=== PATIENT | female | born 1945 | race Caucasian/White ===

== ENCOUNTER → 2016-07-01 | Outpatient (CLI) | payer MEDICARE, MEDICAID ==
[~2016-07-01] MED LIST: ASPI-231 PO; FUR40T PO; HYDR-2595; LEVO75TA6 PO; OXYB15TA12 PO; POTA10TA51 PO; RIVA10TA PO; ROPI1TAB22 PO; SOTA80TA
[2016-07-01 16:27] LABS: Basophils # (auto) 0.1 uL; Basophils % (auto) 0.5 % (0.0-2.0); DEFINITIVE VIEW TRANSMISSION; Eosinophils # (auto) 0.5 uL; Eosinophils % (auto) 4.2 % (0.0-7.0); Hematocrit 32.9 % (36.0-46.0); Hemoglobin 10.2 g/dL (12.2-16.2); Lymphocytes # (auto) 2.2 uL; Lymphocytes % (auto) 17.5 % (10.0-50.0); Mean Corpuscular Hemoglobin 25.7 pg (28.0-32.0); Mean Corpuscular Volume 82.8 fL (80.0-100.0); Mean Platelet Volume 7.5 fL (7.4-10.4); Monocytes # (auto) 0.8 uL; Neutrophils # (auto) 9.1 uL; Neutrophils % (auto) 71.8 % (37.0-80.0); Platelet Count (auto) 407 10^3/uL (140-450); Red Cell Distribution Width 19.4 % (11.6-16.0); White Blood Cell 12.7 10^3/uL (4.4-10.8)
[2016-07-01 16:46] LABS: Albumin 2.3 g/dL (3.4-5.0); BUN/Creatinine Ratio 11.2; Calcium 9.1 mg/dL (8.5-10.1); Potassium 4.7 mmol/L (3.5-5.1)
[2016-07-01 16:49] LABS: Bilirubin, Total 0.3 mg/dL (0.2-1.0)
[2016-07-01 17:27] LABS: Anisocytosis Moderate; Platelet Estimate Adequate
[2016-07-01 17:28] LABS: Ovalocytes FEW
== END | disposition home or self-care (01) ==
LOC: LAB 11:59
PROVIDERS: ATTEND Internal Medicine Cardiovascular Disease
DX: N39.0 Urinary tract infection, site not specified (principal); D64.9 Anemia, unspecified; I10 Essential (primary) hypertension
CPT/HCPCS: 36415; 80053; 85025

== ENCOUNTER → 2016-08-12 | Outpatient (CLI) | payer MEDICARE, MEDICAID ==
[2016-08-12 16:36] LABS: Basophils # (auto) 0 uL; Basophils % (auto) 0.5 % (0.0-2.0); DEFINITIVE VIEW TRANSMISSION; Eosinophils # (auto) 1.3 uL; Eosinophils % (auto) 12.2 % (0.0-7.0); Hematocrit 29.3 % (36.0-46.0); Hemoglobin 9.7 g/dL (12.2-16.2); Lymphocytes # (auto) 1.8 uL; Lymphocytes % (auto) 17.5 % (10.0-50.0); Mean Corpuscular Hemoglobin 27.5 pg (28.0-32.0); Mean Corpuscular Hgb Conc. 33.1 g/dL (32.0-36.0); Mean Platelet Volume 8.5 fL (7.4-10.4); Monocytes # (auto) 0.7 uL; Monocytes % (auto) 6.7 % (0.0-12.0); Neutrophils # (auto) 6.6 uL; Neutrophils % (auto) 63.1 % (37.0-80.0); Platelet Count (auto) 398 10^3/uL (140-450); Red Cell Distribution Width 18.3 % (11.6-16.0); White Blood Cell 10.4 10^3/uL (4.4-10.8)
[2016-08-12 16:55] LABS: BUN/Creatinine Ratio 19.7; Calcium 9.3 mg/dL (8.5-10.1); Potassium 4.8 mmol/L (3.5-5.1)
== END | disposition home or self-care (01) ==
LOC: CHF HDHVI 14:48
PROVIDERS: ATTEND Internal Medicine Cardiovascular Disease
DX: I10 Essential (primary) hypertension (principal); D64.9 Anemia, unspecified
CPT/HCPCS: 36415; 80048; 85025

== ENCOUNTER → 2016-09-18 | Outpatient (CLI) | payer MEDICARE, MEDICAID | END | disposition home or self-care (01) | LOC: LAB 13:09 | PROVIDERS: ATTEND Internal Medicine Cardiovascular Disease | DX: N39.0 Urinary tract infection, site not specified (principal) | CPT/HCPCS: 87086 ==

== ENCOUNTER → 2017-01-04 | Outpatient (CLI) | payer MEDICARE, MEDICAID ==
[2017-01-04 13:40] VITALS: BP 153/74
[2017-01-04 14:40] VITALS: BP 174/85
[2017-01-04 16:46] LABS: Basophils # (auto) 0 uL; Basophils % (auto) 0.2 % (0.0-2.0); CONDITION Y; Eosinophils # (auto) 0.1 uL; Eosinophils % (auto) 0.6 % (0.0-7.0); Hematocrit 31.6 % (36.0-46.0); Hemoglobin 10.4 g/dL (12.2-16.2); Lymphocytes # (auto) 2.1 uL; Lymphocytes % (auto) 15.3 % (10.0-50.0); Mean Corpuscular Hemoglobin 28.3 pg (28.0-32.0); Mean Corpuscular Hgb Conc. 32.9 g/dL (32.0-36.0); Mean Corpuscular Volume 85.8 fL (80.0-100.0); Mean Platelet Volume 8.6 fL (7.4-10.4); Monocytes # (auto) 0.9 uL; Monocytes % (auto) 6.3 % (0.0-12.0); Neutrophils # (auto) 10.7 uL; Neutrophils % (auto) 77.6 % (37.0-80.0); Platelet Count (auto) 495 10^3/uL (140-450); Red Cell Distribution Width 14.9 % (11.6-16.0); White Blood Cell 13.8 10^3/uL (4.4-10.8)
[2017-01-04 17:59] LABS: Chloride 105 mmol/L (98-107); Potassium 4.9 mmol/L (3.5-5.1); Sodium 138 mmol/L (136-145)
[2017-01-04 19:05] LABS: Albumin 3.4 g/dL (3.4-5.0); Alkaline Phosphatase 91 U/L (45-117); Anion Gap 10 (5-15); Aspartate Aminotransferase 6 U/L (15-37); Bilirubin, Direct < 0.1 mg/dL (0-0.2); Bilirubin, Total 0.3 mg/dL (0.2-1.0); Calcium 9.5 mg/dL (8.5-10.1); Carbon Dioxide 23 mmol/L (21-32); Cholesterol 99 mg/dL (< 200); GFR African American 22 mL/min; GFR Non-African American 18 mL/min; Glucose 95 mg/dL (74-106); HDL Cholesterol 56 mg/dL (40-59); LDL Cholesterol 100 mg/dL (< 100); Total Protein 7.5 g/dL (6.4-8.2); Triglycerides 94 mg/dL (< 150)
[2017-01-05 14:47] LABS: BUN/Creatinine Ratio 36.1; Blood Urea Nitrogen 99 mg/dL (7-18)
[2017-01-05 16:58] LABS: Urine Bilirubin Negative (Negative); Urine Blood Negative /uL (Negative); Urine Color Yellow (Yellow); Urine Glucose Normal (Normal); Urine Ketone Negative (Negative); Urine Nitrite Negative (Negative); Urine Urobilinogen Normal (Negative)
== END | disposition home or self-care (01) ==
LOC: Rad HDHVI 12:50
PROVIDERS: ATTEND Internal Medicine Cardiovascular Disease
DX: I35.0 Nonrheumatic aortic (valve) stenosis (principal); I11.0 Hypertensive heart disease with heart failure; I50.23 Acute on chronic systolic (congestive) heart failure; E78.00 Pure hypercholesterolemia, unspecified; K74.1 Hepatic sclerosis; E11.9 Type 2 diabetes mellitus without complications; E03.9 Hypothyroidism, unspecified; D64.9 Anemia, unspecified; E55.9 Vitamin D deficiency, unspecified
CPT/HCPCS: 36415; 80048; 80061; 80076; 82306; 83036; 84443; 85025; 93306; G0463; J1642; 81003; 87086

== ENCOUNTER → 2017-01-11 | Outpatient (CLI) | payer MEDICARE, MEDICAID ==
[~2017-01-11] VITALS: Ht 170.2 cm; Wt 89.3 kg
[~2017-01-11] MED LIST changes: +ADENOSINE 75 MG in GIVE UN-DILUTED 0 ML IV ONE; +APRE1TAB2 PO; +BISA-13 PO; +FAMO-12 PO; +LEVO250T45 PO; +LOR05T PO; +MELO-86 PO; +NAS17NSL; +ONDA4TAB5 PO; +SACC250C PO
== END | disposition home or self-care (01) ==
LOC: XYW 08:41
PROVIDERS: ATTEND Internal Medicine Cardiovascular Disease
DX: R94.39 Abnormal result of other cardiovascular function study (principal)
CPT/HCPCS: J0153

== ENCOUNTER → 2017-02-24 | Outpatient (CLI) | payer MEDICARE, MEDICAID ==
[~2017-02-24] MED LIST changes: -ADENOSINE 75 MG in GIVE UN-DILUTED 0 ML IV ONE; -RIVA10TA PO
[2017-02-24 12:18] LABS: Urine Bilirubin Negative (Negative); Urine Blood Negative /uL (Negative); Urine Color Colorless (Yellow); Urine Glucose Normal (Normal); Urine Ketone Negative (Negative); Urine Nitrite Negative (Negative); Urine Urobilinogen Normal (Negative); Urine pH 6.5 (5.0-8.0)
[2017-02-24 12:21] LABS: Basophils # (auto) 0.1 uL; Basophils % (auto) 0.6 % (0.0-2.0); Eosinophils # (auto) 0.6 uL; Eosinophils % (auto) 6.6 % (0.0-7.0); Hematocrit 30.1 % (36.0-46.0); Lymphocytes # (auto) 2.1 uL; Mean Corpuscular Hemoglobin 28.3 pg (28.0-32.0); Mean Corpuscular Hgb Conc. 33.1 g/dL (32.0-36.0); Mean Corpuscular Volume 85.4 fL (80.0-100.0); Mean Platelet Volume 7.8 fL (6.9-10.8); Monocytes # (auto) 0.8 uL; Monocytes % (auto) 8.3 % (0.0-12.0); Neutrophils # (auto) 6.1 uL; Neutrophils % (auto) 62.5 % (37.0-80.0); Platelet Count (auto) 389 10^3/uL (140-450); Red Cell Distribution Width 16.2 % (11.8-14.3); White Blood Cell 9.7 10^3/uL (4.4-10.8)
== END | disposition home or self-care (01) ==
LOC: LAB 10:42
PROVIDERS: ATTEND Internal Medicine Cardiovascular Disease
DX: D64.9 Anemia, unspecified (principal); N39.0 Urinary tract infection, site not specified; N18.4 Chronic kidney disease, stage 4 (severe)
CPT/HCPCS: 36415; 81003; 85025; 87086

== ENCOUNTER → 2017-04-07 | Outpatient (CLI) | payer MEDICARE, MEDICAID ==
[~2017-04-07] VITALS: Ht 170.2 cm; Wt 115.7 kg
[~2017-04-07] MED LIST changes: +ADENOSINE 90 MG/30 ML INJ IV ONE; +ADENOSINE 97 MG in GIVE UN-DILUTED 0 ML IV ONE; -LOR05T PO; +LORA-654 PO; -MELO-86 PO; +MELO15TA4 PO
== END | disposition home or self-care (01) ==
LOC: Rad HDHVI 10:48
PROVIDERS: ATTEND Internal Medicine Cardiovascular Disease
DX: I11.0 Hypertensive heart disease with heart failure (principal); I50.22 Chronic systolic (congestive) heart failure; E61.1 Iron deficiency; D64.9 Anemia, unspecified; I73.9 Peripheral vascular disease, unspecified
CPT/HCPCS: 78452; 82728; 83540; 83550; 93005; 96374; 96375; A9500; J0153

== ENCOUNTER → 2017-09-03 | Day surgery (SDC) | payer MEDICARE, MEDICAID ==
[2017-09-03] VITALS (11 sets, daily range): BP systolic 107–147; BP diastolic 49–74
[~2017-09-03] MED LIST changes: -ADENOSINE 90 MG/30 ML INJ IV ONE; -ADENOSINE 97 MG in GIVE UN-DILUTED 0 ML IV ONE; +HYDROcodone-ACET 10/325MG TAB PO ONE; -MELO15TA4 PO; +MELO1TAB56 PO
== END | disposition home or self-care (01) ==
LOC: CATH 06:43
PROVIDERS: ATTEND Internal Medicine Cardiovascular Disease
DX: D64.9 Anemia, unspecified (principal); Z88.0 Allergy status to penicillin; Z88.2 Allergy status to sulfonamides; Z88.1 Allergy status to other antibiotic agents; Z91.02 Food additives allergy status; I50.9 Heart failure, unspecified; C34.90 Malignant neoplasm of unspecified part of unspecified bronchus or lung; G47.30 Sleep apnea, unspecified
CPT/HCPCS: 36430; 86850; 86900; 86901; 86920; J7040; P9016

== ENCOUNTER → 2017-12-10 | Outpatient (CLI) | payer MEDICARE, MEDICAID ==
[~2017-12-10] MED LIST changes: -HYDROcodone-ACET 10/325MG TAB PO ONE; +ROPI1TAB PO; -ROPI1TAB22 PO
== END | disposition home or self-care (01) ==
LOC: Rad HDHVI 13:10
PROVIDERS: ATTEND Internal Medicine Cardiovascular Disease
DX: E03.9 Hypothyroidism, unspecified (principal); E66.9 Obesity, unspecified; J44.9 Chronic obstructive pulmonary disease, unspecified
CPT/HCPCS: 93306

== ENCOUNTER 2018-01-31 11:46 | Inpatient (IN) | payer MEDICARE, MEDICAID ==
[~2018-01-31] VITALS: Ht 162.6 cm; Wt 121.0 kg
[~2018-01-31 11:46] MED LIST changes: +LEVO250T19 PO; -LEVO250T45 PO; -SOTA80TA; +SOTA80TA PO
[2018-01-31 13:32] LABS: Basophils # (auto) 0.5 uL; Hemoglobin 9.3 g/dL (12.2-16.2); Mean Corpuscular Hemoglobin 25.6 pg (28.0-32.0); Monocytes # (auto) 1.4 uL; Monocytes % (auto) 11.5 % (0.0-12.0); Neutrophils # (auto) 8.8 uL; White Blood Cell 12.3 10^3/uL (4.4-10.8)
[2018-01-31 13:34] LABS: Basophils % (auto) 3.8 % (0.0-2.0); Eosinophils # (auto) 0.4 uL; Eosinophils % (auto) 2.9 % (0.0-7.0); Hematocrit 28.5 % (36.0-46.0); Lymphocytes # (auto) 1.3 uL; Lymphocytes % (auto) 10.4 % (10.0-50.0); Mean Corpuscular Hgb Conc. 32.6 g/dL (32.0-36.0); Mean Corpuscular Volume 78.4 fL (80.0-100.0); Neutrophils % (auto) 71.4 % (37.0-80.0); Platelet Count (auto) 430 10^3/uL (140-450); Red Blood Cells 3.63 10^6/uL (4.0-5.20); Red Cell Distribution Width 14.5 % (11.8-14.3)
[2018-01-31 13:54] LABS: Urine Bacteria FEW /hpf (None Seen); Urine Blood TRACE /uL (Negative); Urine Specific Gravity 1.011 (1.001-1.035); Urine WBC 35 /hpf (0 - 5)
[2018-01-31] MEDS ORDERED: cefTRIAXone 1GM/10ml IVPUSH 10 ML IV ONE (14:15)
[2018-01-31 14:49] LABS: Alanine Aminotransferase 12 U/L (13-56); Albumin 2.4 g/dL (3.4-5.0); Alkaline Phosphatase 141 U/L (45-117); Anion Gap 8 (5-15); Aspartate Aminotransferase 13 U/L (15-37); BUN/Creatinine Ratio 11.8; Bilirubin, Total 0.3 mg/dL (0.2-1.0); Blood Alcohol < 3.0 mg/dL (0-5); Blood Urea Nitrogen 23 mg/dL (7-18); Calcium 9.3 mg/dL (8.5-10.1); Carbon Dioxide 22 mmol/L (21-32); Chloride 102 mmol/L (98-107); GFR African American 32 mL/min; GFR Non-African American 27 mL/min; Glucose 82 mg/dL (74-106); Magnesium 2.2 mg/dL (1.6-2.6); Potassium 4.2 mmol/L (3.5-5.1); Sodium 132 mmol/L (136-145); Total Protein 7.4 g/dL (6.4-8.2)
[2018-01-31] MEDS ORDERED: diphenhdrAMINE HCL 50 MG/1 ML VL ONE (15:35)
[2018-01-31] MEDS ORDERED: methylPREDNISolone SOD SUCC 125 MG/2 ML VL ONE (15:35)
[2018-01-31] MEDS ORDERED: methylPREDNISolone SOD SUCC 125 MG/2 ML VL IV ONE (15:45)
[2018-01-31] MEDS ORDERED: diphenhdrAMINE HCL 50 MG/1 ML VL IV ONE (15:45)
[2018-01-31] MEDS ORDERED: VANCOMYCIN PER PHARMACY 0 MG IV SCH (16:30)
[2018-01-31] MEDS ORDERED: MORPHINE SULF INJ 2 MG/ML SYRINGE 1ML IV PRN ×2 (16:45)
[2018-01-31] MEDS ORDERED: LEVOFLOXACIN 500MG 100 ML IV ONE (16:45)
[2018-01-31] MEDS ORDERED: LABETALOL HCL 5 MG/ML ML 20ML VIAL IV PRN (16:45)
[2018-01-31] MEDS ORDERED: NITROGLYCERIN 0.4 MG SL TAB SL PRN (16:45)
[2018-01-31] MEDS ORDERED: VANCOMYCIN 1GM/250ML 250 ML IV ONE (17:00)
[2018-01-31] MEDS: SODIUM CHLORIDE 0.9% 1,000 ML IV SCH (17:39)
[2018-01-31] MEDS ORDERED: ACETAMINOPHEN 650 MG RECT SUPP PR ONE (18:00)
[2018-01-31 22:11] LABS: INR 1.01 (0.9-1.15); Prothrombin Time 10.8 sec (9.27-12.13)
[2018-01-31] MEDS: HYDROcodone-ACET 5/325MG TAB PO PRN (22:29)
[2018-02-01 07:58] LABS: Basophils # (auto) 0 uL; Eosinophils # (auto) 0 uL; Hemoglobin 9.1 g/dL (12.2-16.2); Monocytes % (auto) 2.2 % (0.0-12.0); Red Cell Distribution Width 14.4 % (11.8-14.3)
[2018-02-01 08:02] LABS: Basophils % (auto) 0.2 % (0.0-2.0); Hematocrit 29.2 % (36.0-46.0); Lymphocytes # (auto) 0.8 uL; Lymphocytes % (auto) 4.1 % (10.0-50.0); Mean Corpuscular Hgb Conc. 31.2 g/dL (32.0-36.0); Mean Corpuscular Volume 80.2 fL (80.0-100.0); Monocytes # (auto) 0.4 uL; Neutrophils # (auto) 18.6 uL; Neutrophils % (auto) 93.5 % (37.0-80.0); Platelet Count (auto) 352 10^3/uL (140-450); Red Blood Cells 3.64 10^6/uL (4.0-5.20); White Blood Cell 19.9 10^3/uL (4.4-10.8)
[2018-02-01 08:24] LABS: Albumin 2.3 g/dL (3.4-5.0); BUN/Creatinine Ratio 12.3; Bilirubin, Total 0.3 mg/dL (0.2-1.0); Calcium 9.4 mg/dL (8.5-10.1); Potassium 4.6 mmol/L (3.5-5.1)
[2018-02-01] MEDS: SODIUM CHLORIDE 0.9% 1,000 ML IV SCH (09:24)
[2018-02-01] MEDS: FAMOTIDINE 20 MG TAB PO SCH (10:00)
[2018-02-01] MEDS ORDERED: LEVOFLOXACIN 250MG 50 ML IV SCH (10:00)
[2018-02-01] MEDS: ENOXAPARIN SOD 40 MG/0.4 ML SYRINGE SC SCH (10:20)
[2018-02-01] MEDS: MEROPENEM 1gm/20ml IVPUSH 20 ML IV SCH ×2 (13:27→22:23)
[2018-02-01] MEDS: VANCOMYCIN 1GM/250ML 250 ML IV SCH (13:59)
[2018-02-01 14:25] LABS: Folate (Folic Acid) 4.26 ng/mL (5.38-24)
[2018-02-01] MEDS: PRAMIPEXOLE DIHYDROCHLORIDE MO 0.25 MG TAB PO SCH (22:24)
[2018-02-02] MEDS: SODIUM CHLORIDE 0.9% 1,000 ML IV SCH ×2 (02:17→18:45)
[2018-02-02] MEDS: VANCOMYCIN 1GM/250ML 250 ML IV SCH ×2 (05:23→23:03)
[2018-02-02] MEDS: ENOXAPARIN SOD 40 MG/0.4 ML SYRINGE SC SCH (10:11)
[2018-02-02] MEDS: CYANOCOBALAMIN 500 MCG TAB PO SCH (10:11)
[2018-02-02] MEDS: FAMOTIDINE 20 MG TAB PO SCH (10:11)
[2018-02-02] MEDS: MEROPENEM 1gm/20ml IVPUSH 20 ML IV SCH ×2 (11:20→23:03)
[2018-02-02] MEDS: FOLIC ACID 1 MG in D5W 5% 50 ML IV SCH (11:20)
[2018-02-02] MEDS: HYDROcodone-ACET 5/325MG TAB PO PRN ×2 (15:42→23:51)
[2018-02-02 21:51] VITALS: BP 137/69
[2018-02-02 22:20] VITALS: BP 137/69
[2018-02-02] MEDS: PRAMIPEXOLE DIHYDROCHLORIDE MO 0.25 MG TAB PO SCH (23:02)
[2018-02-03 05:00] VITALS: BP 146/102
[2018-02-03] MEDS: HYDROcodone-ACET 5/325MG TAB PO PRN ×3 (06:37→17:23)
[2018-02-03 09:00] VITALS: BP 166/98
[2018-02-03] MEDS: SODIUM CHLORIDE 0.9% 1,000 ML IV SCH (11:24)
[2018-02-03] MEDS: MEROPENEM 1gm/20ml IVPUSH 20 ML IV SCH ×2 (11:39→21:33)
[2018-02-03] MEDS: FAMOTIDINE 20 MG TAB PO SCH (11:39)
[2018-02-03] MEDS: CYANOCOBALAMIN 500 MCG TAB PO SCH (11:39)
[2018-02-03] MEDS: FOLIC ACID 1 MG in D5W 5% 50 ML IV SCH (11:39)
[2018-02-03] MEDS: ENOXAPARIN SOD 40 MG/0.4 ML SYRINGE SC SCH (11:40)
[2018-02-03 13:00] VITALS: BP 157/96
[2018-02-03 16:53] VITALS: BP 163/101
[2018-02-03 19:17] LABS: Hemoglobin 8.9 g/dL (12.2-16.2); White Blood Cell 10.5 10^3/uL (4.4-10.8)
[2018-02-03 19:18] LABS: Hematocrit 27.4 % (36.0-46.0); Mean Corpuscular Hemoglobin 25.8 pg (28.0-32.0); Mean Corpuscular Hgb Conc. 32.5 g/dL (32.0-36.0); Mean Corpuscular Volume 79.2 fL (80.0-100.0); Platelet Count (auto) 353 10^3/uL (140-450); Red Blood Cells 3.46 10^6/uL (4.0-5.20); Red Cell Distribution Width 14.7 % (11.8-14.3)
[2018-02-03 19:31] LABS: Band Neutrophils % (manual) 0; Basophils % (manual) 0 (0.0-2.0); Blast Cells 0; Metamyelocytes % 0; Myelocytes % 0; Promyelocytes % 0; Reactive Lymphocytes 0
[2018-02-03 19:33] LABS: Albumin 2.2 g/dL (3.4-5.0); Potassium 4.2 mmol/L (3.5-5.1)
[2018-02-03 19:36] LABS: Bilirubin, Total 0.2 mg/dL (0.2-1.0); Total Protein 6.3 g/dL (6.4-8.2)
[2018-02-03] MEDS: ONDANSETRON HCL 4 MG/2 ML VIAL IV PRN (19:55)
[2018-02-03 20:00] VITALS: BP 164/80
[2018-02-03 21:32] VITALS: BP 164/80
[2018-02-03] MEDS: SOTALOL HCL 80 MG TAB PO SCH (21:34)
[2018-02-03] MEDS: BENAZEPRIL HCL 10 MG TAB PO SCH (21:35)
[2018-02-03] MEDS: PRAMIPEXOLE DIHYDROCHLORIDE MO 0.25 MG TAB PO SCH (21:35)
[2018-02-03 21:37] LABS: Eosinophils % (manual) 10 (0-7); Lymphocytes % (manual) 15 (10.0-50.0); Monocytes % (manual) 10 (0-12)
[2018-02-04] VITALS (7 sets, daily range): BP systolic 127–170; BP diastolic 71–90
[2018-02-04] MEDS: SODIUM CHLORIDE 0.9% 1,000 ML IV SCH ×2 (05:44→21:01)
[2018-02-04] MEDS: ENOXAPARIN SOD 40 MG/0.4 ML SYRINGE SC SCH (11:10)
[2018-02-04] MEDS: FAMOTIDINE 20 MG TAB PO SCH (11:10)
[2018-02-04] MEDS: CYANOCOBALAMIN 500 MCG TAB PO SCH (11:10)
[2018-02-04] MEDS: HYDROcodone-ACET 5/325MG TAB PO PRN ×2 (11:10→20:41)
[2018-02-04] MEDS: SOTALOL HCL 80 MG TAB PO SCH ×2 (11:11→20:43)
[2018-02-04] MEDS: BENAZEPRIL HCL 10 MG TAB PO SCH ×2 (11:11→20:45)
[2018-02-04] MEDS: MEROPENEM 1gm/20ml IVPUSH 20 ML IV SCH ×2 (11:25→20:42)
[2018-02-04] MEDS: FOLIC ACID 1 MG in D5W 5% 50 ML IV SCH (11:25)
[2018-02-04 15:24] LABS: Calcium 8.8 mg/dL (8.5-10.1); Potassium 4.3 mmol/L (3.5-5.1)
[2018-02-04] MEDS: guaiFENesin-CODEINE LIQUID 5 ML UD PO PRN ×2 (16:23→20:46)
[2018-02-04] MEDS ORDERED: APIX2.5T OR (20:04)
[2018-02-04] MEDS: PRAMIPEXOLE DIHYDROCHLORIDE MO 0.25 MG TAB PO SCH (20:41)
[2018-02-04] MEDS: ONDANSETRON HCL 4 MG/2 ML VIAL IV PRN (20:48)
[2018-02-04] MEDS ORDERED: SOTALOL HCL 80 MG TAB PO SCH (22:00)
[2018-02-04] MEDS: ROPINIROLE 1MG TABLET PO SCH (22:00)
[2018-02-05 04:44] VITALS: BP 136/78
[2018-02-05] MEDS: guaiFENesin-CODEINE LIQUID 5 ML UD PO PRN ×3 (06:24→20:01)
[2018-02-05] MEDS: HYDROcodone-ACET 5/325MG TAB PO PRN ×3 (06:24→22:28)
[2018-02-05 08:00] VITALS: BP 115/75
[2018-02-05] MEDS: FOLIC ACID 1 MG in D5W 5% 50 ML IV SCH (10:00)
[2018-02-05] MEDS: MEROPENEM 1gm/20ml IVPUSH 20 ML IV SCH (10:00)
[2018-02-05 11:00] VITALS: BP 127/93
[2018-02-05] MEDS: SOTALOL HCL 80 MG TAB PO SCH ×2 (12:23→22:27)
[2018-02-05] MEDS: OTEZLA 30 MG PO SCH (12:23)
[2018-02-05] MEDS: APIXABAN 2.5 MG TAB PO SCH (12:24)
[2018-02-05] MEDS: CYANOCOBALAMIN 500 MCG TAB PO SCH (12:24)
[2018-02-05] MEDS: FAMOTIDINE 20 MG TAB PO SCH (12:24)
[2018-02-05] MEDS: BENAZEPRIL HCL 10 MG TAB PO SCH ×2 (12:24→22:27)
[2018-02-05] MEDS ORDERED: POTASSIUM CHL 20 Meq TABLET PO ONE (12:30)
[2018-02-05] MEDS ORDERED: EPOETIN ALFA 10,000 UNIT/1 ML VIAL SC ONE (12:30)
[2018-02-05] MEDS: FUROSEMIDE 100 MG/10ML VIAL IV SCH (13:14)
[2018-02-05 16:34] VITALS: BP 113/69
[2018-02-05 22:21] VITALS: BP 141/72
[2018-02-05] MEDS: MEROPENEM 1GM IVPB 100 ML IV SCH (22:26)
[2018-02-05] MEDS: ROPINIROLE 1MG TABLET PO SCH (22:26)
[2018-02-05] MEDS: PRAMIPEXOLE DIHYDROCHLORIDE MO 0.25 MG TAB PO SCH (22:27)
[2018-02-06] MEDS: guaiFENesin-CODEINE LIQUID 5 ML UD PO PRN ×3 (04:39→18:58)
[2018-02-06 05:15] VITALS: BP 136/86
[2018-02-06 09:11] VITALS: BP 126/81
[2018-02-06] MEDS: FOLIC ACID 1 MG in D5W 5% 50 ML IV SCH (09:51)
[2018-02-06] MEDS: HYDROcodone-ACET 5/325MG TAB PO PRN ×2 (09:52→18:00)
[2018-02-06] MEDS: SOTALOL HCL 80 MG TAB PO SCH ×2 (09:53→21:30)
[2018-02-06] MEDS: FAMOTIDINE 20 MG TAB PO SCH (09:53)
[2018-02-06] MEDS: BENAZEPRIL HCL 10 MG TAB PO SCH ×2 (09:54→21:30)
[2018-02-06] MEDS: APIXABAN 2.5 MG TAB PO SCH (09:54)
[2018-02-06] MEDS: CYANOCOBALAMIN 500 MCG TAB PO SCH (09:54)
[2018-02-06] MEDS: MEROPENEM 1GM IVPB 100 ML IV SCH ×2 (09:54→21:30)
[2018-02-06] MEDS: FUROSEMIDE 100 MG/10ML VIAL IV SCH (09:54)
[2018-02-06] MEDS: OTEZLA 30 MG PO SCH (10:16)
[2018-02-06 14:02] VITALS: BP 104/58
[2018-02-06 16:36] VITALS: BP 114/59
[2018-02-06] MEDS: ROPINIROLE 1MG TABLET PO SCH (21:30)
[2018-02-06] MEDS: PRAMIPEXOLE DIHYDROCHLORIDE MO 0.25 MG TAB PO SCH (21:31)
[2018-02-06 22:00] VITALS: BP 132/67
[2018-02-07 04:57] VITALS: BP 106/57
[2018-02-07 06:07] LABS: Hemoglobin 9.5 g/dL (12.2-16.2); Mean Corpuscular Hemoglobin 24.8 pg (28.0-32.0); Red Blood Cells 3.83 10^6/uL (4.0-5.20); White Blood Cell 11.3 10^3/uL (4.4-10.8)
[2018-02-07 06:10] LABS: Hematocrit 29.8 % (36.0-46.0); Mean Corpuscular Hgb Conc. 31.9 g/dL (32.0-36.0); Mean Corpuscular Volume 77.9 fL (80.0-100.0); Platelet Count (auto) 335 10^3/uL (140-450); Red Cell Distribution Width 14.4 % (11.8-14.3)
[2018-02-07 06:16] LABS: Band Neutrophils % (manual) 0; Basophils % (manual) 0 (0.0-2.0); Blast Cells 0; Metamyelocytes % 0; Myelocytes % 0; Promyelocytes % 0; Reactive Lymphocytes 0
[2018-02-07 06:29] LABS: Eosinophils % (manual) 11 (0-7); Lymphocytes % (manual) 15 (10.0-50.0); Monocytes % (manual) 6 (0-12)
[2018-02-07 06:40] LABS: Albumin 2.6 g/dL (3.4-5.0); Calcium 9.2 mg/dL (8.5-10.1); Potassium 4.3 mmol/L (3.5-5.1)
[2018-02-07 06:42] LABS: BUN/Creatinine Ratio 13.3
[2018-02-07 06:45] LABS: Bilirubin, Total 0.5 mg/dL (0.2-1.0); Total Protein 7.1 g/dL (6.4-8.2)
[2018-02-07 08:20] VITALS: BP 97/45
[2018-02-07 08:21] VITALS: BP 97/45
[2018-02-07] MEDS: guaiFENesin-CODEINE LIQUID 5 ML UD PO PRN (08:49)
[2018-02-07] MEDS: FOLIC ACID 1 MG in D5W 5% 50 ML IV SCH (10:54)
[2018-02-07] MEDS: FAMOTIDINE 20 MG TAB PO SCH (10:55)
[2018-02-07] MEDS: APIXABAN 2.5 MG TAB PO SCH (10:55)
[2018-02-07] MEDS: BENAZEPRIL HCL 10 MG TAB PO SCH ×2 (11:00→21:44)
[2018-02-07] MEDS: SOTALOL HCL 80 MG TAB PO SCH ×2 (11:00→21:44)
[2018-02-07] MEDS: FUROSEMIDE 100 MG/10ML VIAL IV SCH (11:00)
[2018-02-07] MEDS: CYANOCOBALAMIN 500 MCG TAB PO SCH (11:02)
[2018-02-07] MEDS: OTEZLA 30 MG PO SCH (11:03)
[2018-02-07] MEDS: LEVOFLOXACIN 500MG 100 ML IV SCH (11:06)
[2018-02-07 13:32] VITALS: BP 98/45
[2018-02-07] MEDS: HYDROcodone-ACET 5/325MG TAB PO PRN (15:16)
[2018-02-07 17:00] VITALS: BP 98/48
[2018-02-07 22:00] VITALS: BP 83/40
[2018-02-07] MEDS: ROPINIROLE 1MG TABLET PO SCH (22:08)
[2018-02-07] MEDS: PRAMIPEXOLE DIHYDROCHLORIDE MO 0.25 MG TAB PO SCH (22:08)
[2018-02-07] MEDS ORDERED: SODIUM CHLORIDE 0.9% 500 ML IV ONE (23:20)
[2018-02-08 01:00] VITALS: BP 76/37
[2018-02-08] MEDS ORDERED: SODIUM CHLORIDE 0.9% 500 ML IV ONE (01:45)
[2018-02-08 05:00] VITALS: BP 104/56
[2018-02-08] MEDS ORDERED: FUROSEMIDE 40 MG/4 ML VIAL IV ONE (08:00)
[2018-02-08] MEDS: ONDANSETRON HCL 4 MG/2 ML VIAL IV PRN (08:32)
[2018-02-08 08:34] VITALS: BP 97/49
[2018-02-08] MEDS: OTEZLA 30 MG PO SCH (10:00)
[2018-02-08] MEDS: SOTALOL HCL 80 MG TAB PO SCH ×2 (10:00→21:48)
[2018-02-08] MEDS: BENAZEPRIL HCL 10 MG TAB PO SCH ×2 (10:00→21:48)
[2018-02-08] MEDS: FUROSEMIDE 100 MG/10ML VIAL IV SCH (10:00)
[2018-02-08] MEDS: CYANOCOBALAMIN 500 MCG TAB PO SCH (10:35)
[2018-02-08] MEDS: FAMOTIDINE 20 MG TAB PO SCH (10:36)
[2018-02-08] MEDS: APIXABAN 2.5 MG TAB PO SCH (10:36)
[2018-02-08] MEDS: LEVOFLOXACIN 500MG 100 ML IV SCH (10:42)
[2018-02-08] MEDS: guaiFENesin-CODEINE LIQUID 5 ML UD PO PRN (10:42)
[2018-02-08 11:43] VITALS: BP 92/52
[2018-02-08 11:50] LABS: BUN/Creatinine Ratio 12.7; Calcium 9.1 mg/dL (8.5-10.1); Potassium 3.9 mmol/L (3.5-5.1)
[2018-02-08] MEDS: FOLIC ACID 1 MG in D5W 5% 50 ML IV SCH (12:19)
[2018-02-08 16:50] VITALS: BP 100/53
[2018-02-08] MEDS: ROPINIROLE 1MG TABLET PO SCH (21:48)
[2018-02-08] MEDS: PRAMIPEXOLE DIHYDROCHLORIDE MO 0.25 MG TAB PO SCH (21:49)
[2018-02-08 22:00] VITALS: BP 83/59
[2018-02-09 05:00] VITALS: BP 97/49
[2018-02-09] MEDS: HYDROcodone-ACET 5/325MG TAB PO PRN (08:38)
[2018-02-09 08:46] VITALS: BP_SYST 110; BP_SYST 120; BP_DIAS 50; BP_DIAS 66
[2018-02-09] MEDS: CYANOCOBALAMIN 500 MCG TAB PO SCH (10:00)
[2018-02-09] MEDS: BENAZEPRIL HCL 10 MG TAB PO SCH ×2 (10:00→22:00)
[2018-02-09] MEDS: SOTALOL HCL 80 MG TAB PO SCH ×2 (10:00→22:00)
[2018-02-09] MEDS: FAMOTIDINE 20 MG TAB PO SCH (10:41)
[2018-02-09] MEDS: LEVOFLOXACIN 500MG 100 ML IV SCH (10:41)
[2018-02-09] MEDS: APIXABAN 2.5 MG TAB PO SCH (10:41)
[2018-02-09] MEDS: FUROSEMIDE 100 MG/10ML VIAL IV SCH (10:41)
[2018-02-09] MEDS: FOLIC ACID 1 MG in D5W 5% 50 ML IV SCH (11:44)
[2018-02-09] MEDS: OTEZLA 30 MG PO SCH (11:44)
[2018-02-09 12:21] LABS: Mean Corpuscular Hemoglobin 24.4 pg (28.0-32.0)
[2018-02-09 12:24] LABS: Hemoglobin 8.1 g/dL (12.2-16.2); Mean Corpuscular Hgb Conc. 31.1 g/dL (32.0-36.0); Mean Corpuscular Volume 78.6 fL (80.0-100.0); Platelet Count (auto) 337 10^3/uL (140-450); Red Blood Cells 3.32 10^6/uL (4.0-5.20); Red Cell Distribution Width 14.4 % (11.8-14.3); White Blood Cell 12.1 10^3/uL (4.4-10.8)
[2018-02-09 12:40] LABS: Basophils % (manual) 0 (0.0-2.0); Blast Cells 0; Myelocytes % 0; Promyelocytes % 0; Reactive Lymphocytes 0
[2018-02-09 13:00] VITALS: BP 113/57
[2018-02-09 13:00] LABS: Albumin 2.4 g/dL (3.4-5.0); BUN/Creatinine Ratio 12.9; Bilirubin, Total 0.3 mg/dL (0.2-1.0); Calcium 9.1 mg/dL (8.5-10.1); Total Protein 6.5 g/dL (6.4-8.2)
[2018-02-09 13:30] LABS: Band Neutrophils % (manual) 2; Eosinophils % (manual) 1 (0-7); Lymphocytes % (manual) 14 (10.0-50.0); Metamyelocytes % 1; Monocytes % (manual) 10 (0-12)
[2018-02-09 17:00] VITALS: BP 128/58
[2018-02-09] MEDS: ONDANSETRON HCL 4 MG/2 ML VIAL IV PRN (17:45)
[2018-02-09] MEDS: PRAMIPEXOLE DIHYDROCHLORIDE MO 0.25 MG TAB PO SCH (21:51)
[2018-02-09 22:00] VITALS: BP 120/55
[2018-02-09] MEDS: ROPINIROLE 1MG TABLET PO SCH (22:06)
[2018-02-09] MEDS: guaiFENesin-CODEINE LIQUID 5 ML UD PO PRN (23:02)
[2018-02-10] VITALS (22 sets, daily range): BP systolic 68–128; BP diastolic 42–75
[2018-02-10] MEDS: guaiFENesin-CODEINE LIQUID 5 ML UD PO PRN (03:45)
[2018-02-10] MEDS: SOTALOL HCL 80 MG TAB PO SCH ×2 (05:47→22:00)
[2018-02-10] MEDS: BENAZEPRIL HCL 10 MG TAB PO SCH ×2 (09:53→22:00)
[2018-02-10] MEDS: LEVOFLOXACIN 500MG 100 ML IV SCH (09:54)
[2018-02-10] MEDS: APIXABAN 2.5 MG TAB PO SCH (10:00)
[2018-02-10] MEDS: CYANOCOBALAMIN 500 MCG TAB PO SCH (10:00)
[2018-02-10] MEDS: FUROSEMIDE 100 MG/10ML VIAL IV SCH (10:00)
[2018-02-10] MEDS: PRAMIPEXOLE DIHYDROCHLORIDE MO 0.25 MG TAB PO SCH (10:00)
[2018-02-10] MEDS: FAMOTIDINE 20 MG TAB PO SCH (10:00)
[2018-02-10] MEDS: OTEZLA 30 MG PO SCH (10:01)
[2018-02-10] MEDS: HYDROcodone-ACET 5/325MG TAB PO PRN (10:02)
[2018-02-10] MEDS: FOLIC ACID 1 MG in D5W 5% 50 ML IV SCH (11:57)
[2018-02-10] MEDS ORDERED: SODIUM CHLORIDE 0.9% 250 ML IV ONE (17:15)
[2018-02-10] MEDS: NOREPINEPHRINE 8 MG/250ML KIT 250 ML IV SCH ×2 (17:15→20:40)
[2018-02-10 20:15] LABS: Hemoglobin 9.5 g/dL (12.2-16.2); Mean Corpuscular Volume 78.2 fL (80.0-100.0)
[2018-02-10 20:17] LABS: Hematocrit 29.7 % (36.0-46.0); Mean Corpuscular Hemoglobin 25.1 pg (28.0-32.0); Mean Corpuscular Hgb Conc. 32.1 g/dL (32.0-36.0); Platelet Count (auto) 364 10^3/uL (140-450); Red Cell Distribution Width 14.7 % (11.8-14.3); White Blood Cell 16.4 10^3/uL (4.4-10.8)
[2018-02-10 20:21] LABS: Band Neutrophils % (manual) 0; Basophils % (manual) 0 (0.0-2.0); Blast Cells 0; Metamyelocytes % 0; Myelocytes % 0; Promyelocytes % 0; Reactive Lymphocytes 0
[2018-02-10 20:33] LABS: Albumin 2.5 g/dL (3.4-5.0); Calcium 9.2 mg/dL (8.5-10.1); Potassium 4.3 mmol/L (3.5-5.1)
[2018-02-10 20:35] LABS: BUN/Creatinine Ratio 12.1
[2018-02-10 20:38] LABS: Bilirubin, Total 0.4 mg/dL (0.2-1.0); Total Protein 6.4 g/dL (6.4-8.2)
[2018-02-10 20:54] LABS: Eosinophils % (manual) 1 (0-7); Lymphocytes % (manual) 9 (10.0-50.0); Monocytes % (manual) 5 (0-12)
[2018-02-10] MEDS: ROPINIROLE 1MG TABLET PO SCH (22:00)
[2018-02-11] VITALS (95 sets, daily range): BP systolic 52–186; BP diastolic 31–111
[2018-02-11 05:28] LABS: Eosinophils # (auto) 0.1 uL; Nucleated Red Blood Cells % 0.3 %; White Blood Cell 19.4 10^3/uL (4.4-10.8)
[2018-02-11 05:30] LABS: Basophils # (auto) 0 uL; Basophils % (auto) 0.2 % (0.0-2.0); Eosinophils % (auto) 0.3 % (0.0-7.0); Hematocrit 26.8 % (36.0-46.0); Hemoglobin 8.8 g/dL (12.2-16.2); Lymphocytes % (auto) 10.6 % (10.0-50.0); Mean Corpuscular Hemoglobin 25.2 pg (28.0-32.0); Mean Corpuscular Hgb Conc. 32.8 g/dL (32.0-36.0); Mean Corpuscular Volume 76.6 fL (80.0-100.0); Monocytes # (auto) 1.8 uL; Monocytes % (auto) 9.5 % (0.0-12.0); Neutrophils # (auto) 15.4 uL; Neutrophils % (auto) 79.4 % (37.0-80.0); Platelet Count (auto) 379 10^3/uL (140-450); Red Cell Distribution Width 14.5 % (11.8-14.3)
[2018-02-11 05:52] LABS: Albumin 2.6 g/dL (3.4-5.0); Bilirubin, Total 0.5 mg/dL (0.2-1.0); Calcium 9.1 mg/dL (8.5-10.1); Total Protein 6.5 g/dL (6.4-8.2)
[2018-02-11] MEDS: BENAZEPRIL HCL 10 MG TAB PO SCH ×2 (10:00→21:46)
[2018-02-11] MEDS: SOTALOL HCL 80 MG TAB PO SCH ×2 (10:00→21:46)
[2018-02-11] MEDS: OTEZLA 30 MG PO SCH (10:00)
[2018-02-11] MEDS: FOLIC ACID 1 MG in D5W 5% 50 ML IV SCH (11:40)
[2018-02-11] MEDS: APIXABAN 2.5 MG TAB PO SCH (11:41)
[2018-02-11] MEDS: CYANOCOBALAMIN 500 MCG TAB PO SCH (11:41)
[2018-02-11] MEDS: FAMOTIDINE 20 MG TAB PO SCH (11:41)
[2018-02-11 14:03] LABS: INR 1.13 (0.9-1.15)
[2018-02-11] MEDS: HYDROcodone-ACET 5/325MG TAB PO PRN ×2 (16:03→17:21)
[2018-02-11] MEDS: NOREPINEPHRINE 8 MG/250ML KIT 250 ML IV SCH (17:00)
[2018-02-11] MEDS: LEVOFLOXACIN 500MG 100 ML IV SCH (17:20)
[2018-02-11] MEDS: FUROSEMIDE 100 MG/10ML VIAL IV SCH (17:20)
[2018-02-11] MEDS: ROPINIROLE 1MG TABLET PO SCH (21:45)
[2018-02-11] MEDS: guaiFENesin-CODEINE LIQUID 5 ML UD PO PRN (21:47)
[2018-02-11] MEDS: PRAMIPEXOLE DIHYDROCHLORIDE MO 0.25 MG TAB PO SCH (21:47)
[2018-02-12] VITALS (89 sets, daily range): BP systolic 68–149; BP diastolic 31–97
[2018-02-12] MEDS: METOCLOPRAMIDE HCL 10 MG TAB PO PRN ×2 (00:03→15:04)
[2018-02-12 05:25] LABS: Basophils # (auto) 0.1 uL; Basophils % (auto) 0.5 % (0.0-2.0); Eosinophils # (auto) 0.3 uL; Hemoglobin 7.9 g/dL (12.2-16.2); Monocytes # (auto) 1.9 uL
[2018-02-12 05:27] LABS: Eosinophils % (auto) 1.9 % (0.0-7.0); Hematocrit 24.4 % (36.0-46.0); Lymphocytes # (auto) 2.5 uL; Lymphocytes % (auto) 14.2 % (10.0-50.0); Mean Corpuscular Hemoglobin 24.9 pg (28.0-32.0); Mean Corpuscular Hgb Conc. 32.5 g/dL (32.0-36.0); Mean Corpuscular Volume 76.5 fL (80.0-100.0); Monocytes % (auto) 10.8 % (0.0-12.0); Neutrophils # (auto) 12.6 uL; Neutrophils % (auto) 72.6 % (37.0-80.0); Nucleated Red Blood Cells % 0.2 %; Platelet Count (auto) 319 10^3/uL (140-450); Red Blood Cells 3.18 10^6/uL (4.0-5.20); Red Cell Distribution Width 14.4 % (11.8-14.3); White Blood Cell 17.4 10^3/uL (4.4-10.8)
[2018-02-12 05:45] LABS: Albumin 2.5 g/dL (3.4-5.0); Bilirubin, Total 0.5 mg/dL (0.2-1.0); Magnesium 1.9 mg/dL (1.6-2.6); Potassium 3.3 mmol/L (3.5-5.1); Total Protein 6.1 g/dL (6.4-8.2)
[2018-02-12] MEDS: guaiFENesin-CODEINE LIQUID 5 ML UD PO PRN ×2 (08:36→18:46)
[2018-02-12] MEDS ORDERED: POTASSIUM CHL 20 Meq TABLET PO ONE (09:00)
[2018-02-12] MEDS: LEVOFLOXACIN 500MG 100 ML IV SCH (10:34)
[2018-02-12] MEDS: FUROSEMIDE 100 MG/10ML VIAL IV SCH (10:34)
[2018-02-12] MEDS: Ensure Enlive Strawberry 8oz Bottle PO SCH ×2 (10:35→19:28)
[2018-02-12] MEDS: CYANOCOBALAMIN 500 MCG TAB PO SCH (10:35)
[2018-02-12] MEDS: FAMOTIDINE 20 MG TAB PO SCH (10:36)
[2018-02-12] MEDS: BENAZEPRIL HCL 10 MG TAB PO SCH ×2 (10:36→22:00)
[2018-02-12] MEDS: SOTALOL HCL 80 MG TAB PO SCH ×3 (10:36→22:00)
[2018-02-12] MEDS: OTEZLA 30 MG PO SCH (10:37)
[2018-02-12] MEDS: FOLIC ACID 1 MG in D5W 5% 50 ML IV SCH (11:16)
[2018-02-12] MEDS: HYDROcodone-ACET 10/325MG TAB PO PRN (13:38)
[2018-02-12] MEDS: APIXABAN 2.5 MG TAB PO SCH (16:21)
[2018-02-12] MEDS: NOREPINEPHRINE 8 MG/250ML KIT 250 ML IV SCH (20:24)
[2018-02-12] MEDS: PRAMIPEXOLE DIHYDROCHLORIDE MO 0.25 MG TAB PO SCH (21:59)
[2018-02-12] MEDS: ROPINIROLE 1MG TABLET PO SCH (21:59)
[2018-02-13] VITALS (83 sets, daily range): BP systolic 55–126; BP diastolic 27–88
[2018-02-13] MEDS: METOCLOPRAMIDE HCL 10 MG TAB PO PRN ×3 (02:28→18:46)
[2018-02-13] MEDS: HYDROcodone-ACET 10/325MG TAB PO PRN ×2 (03:46→16:59)
[2018-02-13 05:14] LABS: Basophils # (auto) 0.1 uL; Basophils % (auto) 0.6 % (0.0-2.0); Nucleated Red Blood Cells % 0.1 %; White Blood Cell 18.1 10^3/uL (4.4-10.8)
[2018-02-13 05:16] LABS: Eosinophils # (auto) 0.3 uL; Eosinophils % (auto) 1.7 % (0.0-7.0); Hematocrit 32.3 % (36.0-46.0); Hemoglobin 10.6 g/dL (12.2-16.2); Lymphocytes # (auto) 2.7 uL; Lymphocytes % (auto) 14.7 % (10.0-50.0); Mean Corpuscular Hemoglobin 25.6 pg (28.0-32.0); Mean Corpuscular Hgb Conc. 32.9 g/dL (32.0-36.0); Mean Corpuscular Volume 77.9 fL (80.0-100.0); Monocytes # (auto) 1.9 uL; Monocytes % (auto) 10.6 % (0.0-12.0); Neutrophils # (auto) 13.1 uL; Neutrophils % (auto) 72.4 % (37.0-80.0); Platelet Count (auto) 293 10^3/uL (140-450); Red Blood Cells 4.14 10^6/uL (4.0-5.20); Red Cell Distribution Width 15.4 % (11.8-14.3)
[2018-02-13 05:34] LABS: Potassium 3.6 mmol/L (3.5-5.1)
[2018-02-13 05:39] LABS: Albumin 2.6 g/dL (3.4-5.0); BUN/Creatinine Ratio 12.4; Calcium 8.7 mg/dL (8.5-10.1); Magnesium 1.6 mg/dL (1.6-2.6)
[2018-02-13 05:42] LABS: Bilirubin, Total 0.6 mg/dL (0.2-1.0); Total Protein 6.2 g/dL (6.4-8.2)
[2018-02-13] MEDS: Ensure Enlive Strawberry 8oz Bottle PO SCH ×2 (08:00→18:00)
[2018-02-13] MEDS: SOTALOL HCL 80 MG TAB PO SCH ×2 (09:39→22:00)
[2018-02-13] MEDS: FUROSEMIDE 100 MG/10ML VIAL IV SCH (09:39)
[2018-02-13] MEDS: LEVOFLOXACIN 500MG 100 ML IV SCH (09:40)
[2018-02-13] MEDS: APIXABAN 2.5 MG TAB PO SCH (09:40)
[2018-02-13] MEDS: OTEZLA 30 MG PO SCH (09:40)
[2018-02-13] MEDS: FAMOTIDINE 20 MG TAB PO SCH (09:40)
[2018-02-13] MEDS: CYANOCOBALAMIN 500 MCG TAB PO SCH (09:40)
[2018-02-13] MEDS: FOLIC ACID 1 MG in D5W 5% 50 ML IV SCH (09:49)
[2018-02-13] MEDS: BENAZEPRIL HCL 10 MG TAB PO SCH ×2 (09:50→22:00)
[2018-02-13] MEDS: guaiFENesin-CODEINE LIQUID 5 ML UD PO PRN (13:26)
[2018-02-13] MEDS: NOREPINEPHRINE 8 MG/250ML KIT 250 ML IV SCH (13:35)
[2018-02-13] MEDS ORDERED: SODIUM CHLORIDE 0.9% 1,000 ML IV ONE (14:45)
[2018-02-13] MEDS: FLUCONAZOLE 200MG/100ML 100 ML IV SCH (16:59)
[2018-02-13] MEDS: ACETYLCYSTEINE 10 %(100MG/ML) SOL 4ML NEB SCH (19:17)
[2018-02-13] MEDS: IPRATROPIUM BROM 0.5 MG/2.5ML INH SOL NEB SCH (19:17)
[2018-02-13] MEDS: ROPINIROLE 1MG TABLET PO SCH (22:00)
[2018-02-13] MEDS: PRAMIPEXOLE DIHYDROCHLORIDE MO 0.25 MG TAB PO SCH (22:00)
[2018-02-13] MEDS: ONDANSETRON ODT 4 MG TAB PO PRN (23:20)
[2018-02-14] VITALS (62 sets, daily range): BP systolic 51–136; BP diastolic 22–97
[2018-02-14] MEDS: HYDROcodone-ACET 10/325MG TAB PO PRN ×2 (00:22→10:07)
[2018-02-14] MEDS: ACETYLCYSTEINE 10 %(100MG/ML) SOL 4ML NEB SCH ×4 (06:43→20:10)
[2018-02-14] MEDS: IPRATROPIUM BROM 0.5 MG/2.5ML INH SOL NEB SCH ×4 (06:43→20:09)
[2018-02-14 07:09] LABS: Basophils # (auto) 0.1 uL; Eosinophils # (auto) 0.5 uL; Hemoglobin 10.9 g/dL (12.2-16.2); Lymphocytes # (auto) 2.5 uL
[2018-02-14 07:12] LABS: Basophils % (auto) 0.3 % (0.0-2.0); Eosinophils % (auto) 2.5 % (0.0-7.0); Hematocrit 33.2 % (36.0-46.0); Lymphocytes % (auto) 13.1 % (10.0-50.0); Mean Corpuscular Hemoglobin 25.6 pg (28.0-32.0); Mean Corpuscular Hgb Conc. 32.8 g/dL (32.0-36.0); Mean Corpuscular Volume 78.2 fL (80.0-100.0); Monocytes # (auto) 1.9 uL; Monocytes % (auto) 9.8 % (0.0-12.0); Neutrophils # (auto) 14.4 uL; Neutrophils % (auto) 74.3 % (37.0-80.0); Nucleated Red Blood Cells % 0.1 %; Platelet Count (auto) 268 10^3/uL (140-450); Red Blood Cells 4.24 10^6/uL (4.0-5.20); Red Cell Distribution Width 15.3 % (11.8-14.3); White Blood Cell 19.3 10^3/uL (4.4-10.8)
[2018-02-14 07:25] LABS: BUN/Creatinine Ratio 12.2; Calcium 8.8 mg/dL (8.5-10.1); Potassium 3.4 mmol/L (3.5-5.1)
[2018-02-14] MEDS: SOTALOL HCL 80 MG TAB PO SCH ×2 (10:00→21:29)
[2018-02-14] MEDS: BENAZEPRIL HCL 10 MG TAB PO SCH ×2 (10:00→21:29)
[2018-02-14] MEDS ORDERED: FLUCONAZOLE 200MG/100ML 100 ML IV SCH (10:00)
[2018-02-14] MEDS: Ensure Enlive Strawberry 8oz Bottle PO SCH ×2 (10:00→18:00)
[2018-02-14] MEDS: FLUCONAZOLE 200MG/100ML 100 ML IV SCH (10:05)
[2018-02-14] MEDS: LEVOFLOXACIN 500MG 100 ML IV SCH (10:05)
[2018-02-14] MEDS: OTEZLA 30 MG PO SCH (10:06)
[2018-02-14] MEDS: FAMOTIDINE 20 MG TAB PO SCH (10:06)
[2018-02-14] MEDS: APIXABAN 2.5 MG TAB PO SCH (10:07)
[2018-02-14] MEDS: CYANOCOBALAMIN 500 MCG TAB PO SCH (10:07)
[2018-02-14] MEDS: FUROSEMIDE 100 MG/10ML VIAL IV SCH (10:24)
[2018-02-14] MEDS: FOLIC ACID 1 MG in D5W 5% 50 ML IV SCH (11:59)
[2018-02-14] MEDS: ONDANSETRON ODT 4 MG TAB PO PRN (13:35)
[2018-02-14] MEDS ORDERED: POTASSIUM CHL 20 Meq TABLET PO ONE (16:00)
[2018-02-14] MEDS: MAGNESIUM SULFATE 1GM/100ML 100 ML IV SCH ×4 (16:10→21:24)
[2018-02-14] MEDS ORDERED: SODIUM CHLORIDE 0.9% 1,000 ML IV ONE (17:15)
[2018-02-14] MEDS: NOREPINEPHRINE 8 MG/250ML KIT 250 ML IV SCH (17:15)
[2018-02-14] MEDS: FLUDROCORTISONE ACETATE 0.1 MG TAB PO SCH (21:29)
[2018-02-14] MEDS: ROPINIROLE 1MG TABLET PO SCH (21:29)
[2018-02-14] MEDS: PRAMIPEXOLE DIHYDROCHLORIDE MO 0.25 MG TAB PO SCH (21:30)
[2018-02-15] VITALS (82 sets, daily range): BP systolic 70–132; BP diastolic 36–79
[2018-02-15] MEDS: ACETYLCYSTEINE 10 %(100MG/ML) SOL 4ML NEB SCH ×4 (00:35→18:00)
[2018-02-15] MEDS: IPRATROPIUM BROM 0.5 MG/2.5ML INH SOL NEB SCH ×4 (00:35→18:00)
[2018-02-15 03:57] LABS: Basophils # (auto) 0.1 uL; Basophils % (auto) 0.4 % (0.0-2.0); Eosinophils # (auto) 0.8 uL
[2018-02-15 04:00] LABS: Eosinophils % (auto) 3.8 % (0.0-7.0); Hematocrit 31.1 % (36.0-46.0); Hemoglobin 10.2 g/dL (12.2-16.2); Lymphocytes # (auto) 2.3 uL; Lymphocytes % (auto) 11.6 % (10.0-50.0); Mean Corpuscular Hemoglobin 25.7 pg (28.0-32.0); Mean Corpuscular Hgb Conc. 32.9 g/dL (32.0-36.0); Monocytes # (auto) 1.8 uL; Neutrophils # (auto) 15.2 uL; Neutrophils % (auto) 75.2 % (37.0-80.0); Nucleated Red Blood Cells % 0.1 %; Platelet Count (auto) 262 10^3/uL (140-450); Red Blood Cells 3.99 10^6/uL (4.0-5.20); Red Cell Distribution Width 15.8 % (11.8-14.3); White Blood Cell 20.2 10^3/uL (4.4-10.8)
[2018-02-15 04:09] LABS: BUN/Creatinine Ratio 13.2; Calcium 8.8 mg/dL (8.5-10.1); Magnesium 2.9 mg/dL (1.6-2.6); Potassium 3.5 mmol/L (3.5-5.1)
[2018-02-15] MEDS: Ensure Enlive Strawberry 8oz Bottle PO SCH ×2 (08:45→19:30)
[2018-02-15] MEDS: APIXABAN 2.5 MG TAB PO SCH (09:51)
[2018-02-15] MEDS: CYANOCOBALAMIN 500 MCG TAB PO SCH (09:51)
[2018-02-15] MEDS: FAMOTIDINE 20 MG TAB PO SCH (09:51)
[2018-02-15] MEDS: ONDANSETRON ODT 4 MG TAB PO PRN ×2 (09:51→17:33)
[2018-02-15] MEDS: FLUDROCORTISONE ACETATE 0.1 MG TAB PO SCH ×2 (09:52→22:17)
[2018-02-15] MEDS: FLUCONAZOLE 200MG/100ML 100 ML IV SCH (09:54)
[2018-02-15] MEDS: LEVOFLOXACIN 500MG 100 ML IV SCH (09:54)
[2018-02-15] MEDS: BENAZEPRIL HCL 10 MG TAB PO SCH ×2 (09:56→21:53)
[2018-02-15] MEDS: SOTALOL HCL 80 MG TAB PO SCH ×2 (09:56→21:52)
[2018-02-15] MEDS: OTEZLA 30 MG PO SCH (09:56)
[2018-02-15] MEDS: HYDROcodone-ACET 10/325MG TAB PO PRN ×2 (09:57→17:32)
[2018-02-15] MEDS: FOLIC ACID 1 MG in D5W 5% 50 ML IV SCH (10:00)
[2018-02-15] MEDS: FUROSEMIDE 100 MG/10ML VIAL IV SCH (10:02)
[2018-02-15 18:25] LABS: Urine Bacteria FEW /hpf (None Seen); Urine Blood TRACE /uL (Negative); Urine Hyaline Cast FEW /lpf (0 - 2); Urine Specific Gravity 1.009 (1.001-1.035); Urine WBC 29 /hpf (0 - 5)
[2018-02-15] MEDS: NOREPINEPHRINE 8 MG/250ML KIT 250 ML IV SCH ×2 (20:41→23:06)
[2018-02-15] MEDS: ROPINIROLE 1MG TABLET PO SCH (22:17)
[2018-02-15] MEDS: PRAMIPEXOLE DIHYDROCHLORIDE MO 0.25 MG TAB PO SCH (22:17)
[2018-02-16] VITALS (94 sets, daily range): BP systolic 69–159; BP diastolic 34–107
[2018-02-16] MEDS: ONDANSETRON ODT 4 MG TAB PO PRN ×3 (00:17→16:38)
[2018-02-16] MEDS: HYDROcodone-ACET 10/325MG TAB PO PRN ×2 (00:23→16:46)
[2018-02-16 04:11] LABS: Basophils # (auto) 0.1 uL; Hemoglobin 9.7 g/dL (12.2-16.2); Lymphocytes # (auto) 1.9 uL; Mean Corpuscular Hgb Conc. 32.5 g/dL (32.0-36.0); Monocytes # (auto) 2.1 uL; Neutrophils # (auto) 13.5 uL; Neutrophils % (auto) 72.5 % (37.0-80.0); White Blood Cell 18.6 10^3/uL (4.4-10.8)
[2018-02-16 04:13] LABS: Basophils % (auto) 0.4 % (0.0-2.0); Eosinophils % (auto) 5.2 % (0.0-7.0); Lymphocytes % (auto) 10.5 % (10.0-50.0); Mean Corpuscular Volume 78.2 fL (80.0-100.0); Monocytes % (auto) 11.4 % (0.0-12.0); Platelet Count (auto) 253 10^3/uL (140-450); Red Blood Cells 3.83 10^6/uL (4.0-5.20); Red Cell Distribution Width 16.1 % (11.8-14.3)
[2018-02-16 04:17] LABS: Mean Corpuscular Hemoglobin 25.5 pg (28.0-32.0)
[2018-02-16 04:26] LABS: BUN/Creatinine Ratio 12.6; Calcium 8.6 mg/dL (8.5-10.1); Potassium 3.5 mmol/L (3.5-5.1)
[2018-02-16] MEDS: IPRATROPIUM BROM 0.5 MG/2.5ML INH SOL NEB SCH ×4 (06:25→19:58)
[2018-02-16] MEDS: ACETYLCYSTEINE 10 %(100MG/ML) SOL 4ML NEB SCH ×4 (06:25→18:00)
[2018-02-16] MEDS: Ensure Enlive Strawberry 8oz Bottle PO SCH ×2 (08:30→18:28)
[2018-02-16] MEDS: SOTALOL HCL 80 MG TAB PO SCH ×2 (10:00→21:45)
[2018-02-16] MEDS: BENAZEPRIL HCL 10 MG TAB PO SCH ×2 (10:00→21:45)
[2018-02-16] MEDS: FUROSEMIDE 100 MG/10ML VIAL IV SCH (10:00)
[2018-02-16] MEDS: OTEZLA 30 MG PO SCH (10:00)
[2018-02-16] MEDS: FLUCONAZOLE 200MG/100ML 100 ML IV SCH (10:41)
[2018-02-16] MEDS: FOLIC ACID 1 MG in D5W 5% 50 ML IV SCH (10:42)
[2018-02-16] MEDS: FLUDROCORTISONE ACETATE 0.1 MG TAB PO SCH ×2 (10:43→22:14)
[2018-02-16] MEDS: CYANOCOBALAMIN 500 MCG TAB PO SCH (10:43)
[2018-02-16] MEDS: APIXABAN 2.5 MG TAB PO SCH (10:43)
[2018-02-16] MEDS: FAMOTIDINE 20 MG TAB PO SCH (10:43)
[2018-02-16] MEDS: ROPINIROLE 1MG TABLET PO SCH (22:12)
[2018-02-16] MEDS: PRAMIPEXOLE DIHYDROCHLORIDE MO 0.25 MG TAB PO SCH (22:13)
[2018-02-16] MEDS: guaiFENesin-CODEINE LIQUID 5 ML UD PO PRN (22:15)
[2018-02-17] VITALS (94 sets, daily range): BP systolic 70–136; BP diastolic 34–91
[2018-02-17] MEDS: ACETYLCYSTEINE 10 %(100MG/ML) SOL 4ML NEB SCH ×5 (01:41→23:34)
[2018-02-17] MEDS: IPRATROPIUM BROM 0.5 MG/2.5ML INH SOL NEB SCH ×5 (01:41→23:34)
[2018-02-17] MEDS: HYDROcodone-ACET 10/325MG TAB PO PRN ×2 (04:18→10:51)
[2018-02-17] MEDS: NOREPINEPHRINE 8 MG/250ML KIT 250 ML IV SCH (07:26)
[2018-02-17] MEDS: Ensure Enlive Strawberry 8oz Bottle PO SCH ×2 (08:00→18:00)
[2018-02-17] MEDS: BENAZEPRIL HCL 10 MG TAB PO SCH ×2 (10:00→22:00)
[2018-02-17] MEDS: FLUCONAZOLE 200MG/100ML 100 ML IV SCH (10:48)
[2018-02-17] MEDS: FOLIC ACID 1 MG in D5W 5% 50 ML IV SCH (10:48)
[2018-02-17] MEDS: OTEZLA 30 MG PO SCH (10:50)
[2018-02-17] MEDS: SOTALOL HCL 80 MG TAB PO SCH ×2 (10:52→22:04)
[2018-02-17] MEDS: APIXABAN 2.5 MG TAB PO SCH (10:53)
[2018-02-17] MEDS: FAMOTIDINE 20 MG TAB PO SCH (10:55)
[2018-02-17] MEDS: FLUDROCORTISONE ACETATE 0.1 MG TAB PO SCH ×2 (10:56→22:07)
[2018-02-17] MEDS: CYANOCOBALAMIN 500 MCG TAB PO SCH (10:57)
[2018-02-17] MEDS: FUROSEMIDE 100 MG/10ML VIAL IV SCH (11:36)
[2018-02-17] MEDS: ONDANSETRON ODT 4 MG TAB PO PRN (13:10)
[2018-02-17] MEDS ORDERED: SODIUM CHLORIDE 0.9% 1,000 ML IV ONE (14:00)
[2018-02-17] MEDS ORDERED: FUROSEMIDE 40 MG/4 ML VIAL IV SCH (18:00)
[2018-02-17] MEDS: PRAMIPEXOLE DIHYDROCHLORIDE MO 0.25 MG TAB PO SCH (22:04)
[2018-02-17] MEDS: ROPINIROLE 1MG TABLET PO SCH (22:08)
[2018-02-18] VITALS (92 sets, daily range): BP systolic 76–151; BP diastolic 42–116
[2018-02-18] MEDS: HYDROcodone-ACET 10/325MG TAB PO PRN (02:54)
[2018-02-18 04:41] LABS: BUN/Creatinine Ratio 13.3; Calcium 8.6 mg/dL (8.5-10.1)
[2018-02-18 04:58] LABS: Potassium 2.9 mmol/L (3.5-5.1)
[2018-02-18] MEDS ORDERED: FUROSEMIDE 40 MG/4 ML VIAL IV SCH (06:00)
[2018-02-18] MEDS ORDERED: POTASSIUM CHL 20MEQ/100ML 200 ML IV ONE (07:32)
[2018-02-18] MEDS: POTASSIUM CHL 20MEQ/100ML 100 ML IV SCH ×2 (07:40→08:29)
[2018-02-18] MEDS ORDERED: POTASSIUM CHL 20 Meq TABLET PO ONE (10:00)
[2018-02-18] MEDS: BENAZEPRIL HCL 10 MG TAB PO SCH ×2 (10:00→21:47)
[2018-02-18] MEDS: OTEZLA 30 MG PO SCH (10:00)
[2018-02-18] MEDS: FOLIC ACID 1 MG in D5W 5% 50 ML IV SCH (10:15)
[2018-02-18] MEDS: CYANOCOBALAMIN 500 MCG TAB PO SCH (10:30)
[2018-02-18] MEDS: Ensure Enlive Strawberry 8oz Bottle PO SCH ×2 (10:30→18:00)
[2018-02-18] MEDS: SOTALOL HCL 80 MG TAB PO SCH ×2 (10:30→22:00)
[2018-02-18] MEDS: APIXABAN 2.5 MG TAB PO SCH (10:30)
[2018-02-18] MEDS: FAMOTIDINE 20 MG TAB PO SCH (10:30)
[2018-02-18] MEDS: FLUCONAZOLE 200MG/100ML 100 ML IV SCH (10:30)
[2018-02-18] MEDS: FLUDROCORTISONE ACETATE 0.1 MG TAB PO SCH ×2 (11:00→22:00)
[2018-02-18] MEDS: NOREPINEPHRINE 8 MG/250ML KIT 250 ML IV SCH (12:21)
[2018-02-18] MEDS: IPRATROPIUM BROM 0.5 MG/2.5ML INH SOL NEB SCH (18:00)
[2018-02-18] MEDS: ACETYLCYSTEINE 10 %(100MG/ML) SOL 4ML NEB SCH (18:00)
[2018-02-18] MEDS: ROPINIROLE 1MG TABLET PO SCH (22:00)
[2018-02-18] MEDS: POTASSIUM EFFERVESENT TAB 25 MEQ PO SCH (23:12)
[2018-02-18] MEDS: METOCLOPRAMIDE HCL 5MG/ml INJ 2ml VIAL IV SCH (23:13)
[2018-02-19] VITALS (88 sets, daily range): BP systolic 82–139; BP diastolic 36–99
[2018-02-19] MEDS: HYDROcodone-ACET 10/325MG TAB PO PRN ×2 (01:27→18:19)
[2018-02-19] MEDS: METOCLOPRAMIDE HCL 5MG/ml INJ 2ml VIAL IV SCH ×4 (06:00→22:46)
[2018-02-19] MEDS: IPRATROPIUM BROM 0.5 MG/2.5ML INH SOL NEB SCH ×4 (06:53→19:08)
[2018-02-19] MEDS: ACETYLCYSTEINE 10 %(100MG/ML) SOL 4ML NEB SCH ×4 (06:53→19:08)
[2018-02-19] MEDS: NOREPINEPHRINE 8 MG/250ML KIT 250 ML IV SCH ×2 (08:24→18:34)
[2018-02-19] MEDS: Ensure Enlive Strawberry 8oz Bottle PO SCH ×2 (08:25→17:43)
[2018-02-19] MEDS: BENAZEPRIL HCL 10 MG TAB PO SCH ×2 (10:00→22:00)
[2018-02-19] MEDS: SOTALOL HCL 80 MG TAB PO SCH ×2 (10:00→22:00)
[2018-02-19] MEDS: APIXABAN 2.5 MG TAB PO SCH (10:06)
[2018-02-19] MEDS: FLUCONAZOLE 200MG/100ML 100 ML IV SCH (10:06)
[2018-02-19] MEDS: FAMOTIDINE 20 MG TAB PO SCH (10:07)
[2018-02-19] MEDS: FUROSEMIDE 40 MG/4 ML VIAL IV SCH (10:07)
[2018-02-19] MEDS: CYANOCOBALAMIN 500 MCG TAB PO SCH (10:07)
[2018-02-19] MEDS: FLUDROCORTISONE ACETATE 0.1 MG TAB PO SCH ×2 (10:07→22:46)
[2018-02-19] MEDS: POTASSIUM EFFERVESENT TAB 25 MEQ PO SCH ×2 (10:14→22:46)
[2018-02-19] MEDS: OTEZLA 30 MG PO SCH (10:15)
[2018-02-19] MEDS: FOLIC ACID 1 MG in D5W 5% 50 ML IV SCH (11:06)
[2018-02-19] MEDS ORDERED: TESTOSTERONE CYPIONATE 200 MG/ML 1ML VIAL IM ONE (12:30)
[2018-02-19 14:26] LABS: BUN/Creatinine Ratio 14.9; Bilirubin, Total 0.5 mg/dL (0.2-1.0); Potassium 4.9 mmol/L (3.5-5.1); Total Protein 6.3 g/dL (6.4-8.2)
[2018-02-19] MEDS: ONDANSETRON ODT 4 MG TAB PO PRN (16:10)
[2018-02-19] MEDS: ROPINIROLE 1MG TABLET PO SCH (22:00)
[2018-02-19] MEDS: CLOBETASOL PROPIONATE 0.05% TOP SCH (22:14)
[2018-02-20] VITALS (94 sets, daily range): BP systolic 71–144; BP diastolic 32–102
[2018-02-20] MEDS: IPRATROPIUM BROM 0.5 MG/2.5ML INH SOL NEB SCH ×4 (00:21→18:50)
[2018-02-20] MEDS: ACETYLCYSTEINE 10 %(100MG/ML) SOL 4ML NEB SCH ×4 (00:21→18:50)
[2018-02-20 04:08] LABS: Basophils # (auto) 0 uL; Basophils % (auto) 0.2 % (0.0-2.0); Eosinophils # (auto) 0.4 uL; Eosinophils % (auto) 2.4 % (0.0-7.0); Hematocrit 30.5 % (36.0-46.0); Lymphocytes % (auto) 12.1 % (10.0-50.0); Mean Corpuscular Hemoglobin 25.4 pg (28.0-32.0); Mean Corpuscular Hgb Conc. 32.7 g/dL (32.0-36.0); Mean Corpuscular Volume 77.5 fL (80.0-100.0); Monocytes # (auto) 2.5 uL; Neutrophils # (auto) 11.7 uL; Neutrophils % (auto) 70.3 % (37.0-80.0); Platelet Count (auto) 219 10^3/uL (140-450); Red Blood Cells 3.94 10^6/uL (4.0-5.20); Red Cell Distribution Width 16.3 % (11.8-14.3); White Blood Cell 16.7 10^3/uL (4.4-10.8)
[2018-02-20] MEDS: METOCLOPRAMIDE HCL 5MG/ml INJ 2ml VIAL IV SCH ×3 (06:03→23:00)
[2018-02-20] MEDS: Ensure Enlive Strawberry 8oz Bottle PO SCH ×2 (08:30→18:40)
[2018-02-20] MEDS: OTEZLA 30 MG PO SCH (09:26)
[2018-02-20] MEDS: FUROSEMIDE 40 MG/4 ML VIAL IV SCH (09:26)
[2018-02-20] MEDS: FOLIC ACID 1 MG in D5W 5% 50 ML IV SCH (09:26)
[2018-02-20] MEDS: predniSONE 20 MG TAB PO SCH (09:27)
[2018-02-20] MEDS: HYDROcodone-ACET 10/325MG TAB PO PRN (09:27)
[2018-02-20] MEDS: BENAZEPRIL HCL 10 MG TAB PO SCH ×2 (09:28→22:00)
[2018-02-20] MEDS: FLUDROCORTISONE ACETATE 0.1 MG TAB PO SCH ×2 (09:28→23:00)
[2018-02-20] MEDS: POTASSIUM EFFERVESENT TAB 25 MEQ PO SCH ×2 (09:28→23:00)
[2018-02-20] MEDS: FAMOTIDINE 20 MG TAB PO SCH (09:28)
[2018-02-20] MEDS: APIXABAN 2.5 MG TAB PO SCH (09:29)
[2018-02-20] MEDS: SOTALOL HCL 80 MG TAB PO SCH ×2 (09:29→23:00)
[2018-02-20] MEDS: CYANOCOBALAMIN 500 MCG TAB PO SCH (09:29)
[2018-02-20] MEDS: FLUCONAZOLE 200MG/100ML 100 ML IV SCH (09:37)
[2018-02-20] MEDS: CLOBETASOL PROPIONATE 0.05% TOP SCH ×2 (09:50→22:00)
[2018-02-20] MEDS: ROPINIROLE 1MG TABLET PO SCH (23:00)
[2018-02-21] VITALS (61 sets, daily range): BP systolic 73–155; BP diastolic 41–100
[2018-02-21] MEDS: ACETYLCYSTEINE 10 %(100MG/ML) SOL 4ML NEB SCH ×3 (00:31→12:35)
[2018-02-21] MEDS: IPRATROPIUM BROM 0.5 MG/2.5ML INH SOL NEB SCH ×5 (00:31→23:23)
[2018-02-21] MEDS: METOCLOPRAMIDE HCL 5MG/ml INJ 2ml VIAL IV SCH ×2 (06:00→14:00)
[2018-02-21] MEDS: Ensure Enlive Strawberry 8oz Bottle PO SCH ×2 (08:00→18:00)
[2018-02-21] MEDS: FOLIC ACID 1 MG in D5W 5% 50 ML IV SCH (10:00)
[2018-02-21] MEDS: APIXABAN 2.5 MG TAB PO SCH (10:00)
[2018-02-21] MEDS: FLUDROCORTISONE ACETATE 0.1 MG TAB PO SCH ×2 (10:00→23:42)
[2018-02-21] MEDS: SOTALOL HCL 80 MG TAB PO SCH (10:00)
[2018-02-21] MEDS: predniSONE 20 MG TAB PO SCH (10:00)
[2018-02-21] MEDS: CYANOCOBALAMIN 500 MCG TAB PO SCH (10:00)
[2018-02-21] MEDS: POTASSIUM EFFERVESENT TAB 25 MEQ PO SCH ×2 (10:00→23:42)
[2018-02-21] MEDS: BENAZEPRIL HCL 10 MG TAB PO SCH (10:00)
[2018-02-21] MEDS: FAMOTIDINE 20 MG TAB PO SCH (10:00)
[2018-02-21] MEDS: OTEZLA 30 MG PO SCH (10:00)
[2018-02-21] MEDS ORDERED: LIDOCAINE 2% (LOCAL ANESTH.) PF 5ml SDV ONE (10:21)
[2018-02-21] MEDS ORDERED: IODIXANOL 320MG/ML 100ML BTL IV ONE ×2 (10:21→13:07)
[2018-02-21] MEDS: CLOBETASOL PROPIONATE 0.05% TOP SCH ×2 (11:00→23:42)
[2018-02-21] MEDS: FUROSEMIDE 40 MG/4 ML VIAL IV SCH (11:03)
[2018-02-21] MEDS: FLUCONAZOLE 200MG/100ML 100 ML IV SCH (11:03)
[2018-02-21] MEDS: HYDROcodone-ACET 10/325MG TAB PO PRN (11:05)
[2018-02-21] MEDS ORDERED: fentaNYL CITRATE 100 MCG/2 ML VL ONE (13:07)
[2018-02-21] MEDS ORDERED: ANGIOMAX 250 MG VIAL IV ONE (13:07)
[2018-02-21] MEDS ORDERED: SODIUM CHL 0.9% 0 ML ONE (13:08)
[2018-02-21] MEDS ORDERED: MIDAZOLAM HCL 1MG/1ML-2 ML VIAL ONE (13:08)
[2018-02-21] MEDS ORDERED: ALBUMIN 5% 250 ML IV ONE ×2 (14:00→15:00)
[2018-02-21] MEDS: METOCLOPRAMIDE HCL 10 MG TAB PO SCH ×2 (14:45→23:42)
[2018-02-21] MEDS: HYDROcodone-ACET 7.5/325MG TAB PO PRN (18:44)
[2018-02-21] MEDS: ROPINIROLE 1MG TABLET PO SCH (23:41)
[2018-02-22 05:00] VITALS: BP 114/55
[2018-02-22] MEDS: METOCLOPRAMIDE HCL 10 MG TAB PO SCH ×3 (06:06→21:43)
[2018-02-22] MEDS: HYDROcodone-ACET 7.5/325MG TAB PO PRN (06:07)
[2018-02-22] MEDS: IPRATROPIUM BROM 0.5 MG/2.5ML INH SOL NEB SCH ×3 (06:52→18:37)
[2018-02-22 08:54] VITALS: BP 82/55
[2018-02-22] MEDS: Ensure Enlive Strawberry 8oz Bottle PO SCH ×2 (09:17→18:58)
[2018-02-22] MEDS: FLUCONAZOLE 200MG/100ML 100 ML IV SCH (09:18)
[2018-02-22] MEDS: APIXABAN 2.5 MG TAB PO SCH (09:21)
[2018-02-22] MEDS: POTASSIUM EFFERVESENT TAB 25 MEQ PO SCH ×2 (09:22→22:00)
[2018-02-22] MEDS: CYANOCOBALAMIN 500 MCG TAB PO SCH (09:22)
[2018-02-22] MEDS: FLUDROCORTISONE ACETATE 0.1 MG TAB PO SCH ×2 (09:22→21:43)
[2018-02-22] MEDS: predniSONE 20 MG TAB PO SCH (09:22)
[2018-02-22] MEDS: FAMOTIDINE 20 MG TAB PO SCH (09:22)
[2018-02-22] MEDS: FUROSEMIDE 40 MG/4 ML VIAL IV SCH (09:23)
[2018-02-22] MEDS: CLOBETASOL PROPIONATE 0.05% TOP SCH ×2 (09:24→22:00)
[2018-02-22] MEDS: OTEZLA 30 MG PO SCH (10:00)
[2018-02-22] MEDS: FOLIC ACID 1 MG in D5W 5% 50 ML IV SCH (11:23)
[2018-02-22 13:00] VITALS: BP 89/47
[2018-02-22 17:00] VITALS: BP 140/77
[2018-02-22] MEDS: ROPINIROLE 1MG TABLET PO SCH (21:43)
[2018-02-22 22:00] VITALS: BP 140/62
[2018-02-22 23:43] VITALS: BP 140/77
[2018-02-23] MEDS: IPRATROPIUM BROM 0.5 MG/2.5ML INH SOL NEB SCH ×4 (00:10→18:37)
[2018-02-23 05:12] VITALS: BP 112/68
[2018-02-23 05:26] VITALS: BP 143/76
[2018-02-23] MEDS: HYDROcodone-ACET 7.5/325MG TAB PO PRN ×2 (06:53→21:58)
[2018-02-23] MEDS: METOCLOPRAMIDE HCL 10 MG TAB PO SCH ×3 (06:54→21:58)
[2018-02-23 09:00] VITALS: BP 142/80
[2018-02-23] MEDS: OTEZLA 30 MG PO SCH (10:00)
[2018-02-23] MEDS: Ensure Enlive Strawberry 8oz Bottle PO SCH ×2 (10:21→18:36)
[2018-02-23] MEDS: FLUCONAZOLE 200MG/100ML 100 ML IV SCH (10:21)
[2018-02-23] MEDS: FLUDROCORTISONE ACETATE 0.1 MG TAB PO SCH ×2 (10:22→21:58)
[2018-02-23] MEDS: predniSONE 20 MG TAB PO SCH (10:22)
[2018-02-23] MEDS: CYANOCOBALAMIN 500 MCG TAB PO SCH (10:22)
[2018-02-23] MEDS: APIXABAN 2.5 MG TAB PO SCH (10:22)
[2018-02-23] MEDS: POTASSIUM EFFERVESENT TAB 25 MEQ PO SCH ×2 (10:22→22:00)
[2018-02-23] MEDS: FUROSEMIDE 40 MG/4 ML VIAL IV SCH (10:22)
[2018-02-23] MEDS: CLOBETASOL PROPIONATE 0.05% TOP SCH ×2 (10:24→22:00)
[2018-02-23] MEDS: FOLIC ACID 1 MG in D5W 5% 50 ML IV SCH (10:49)
[2018-02-23] MEDS: FAMOTIDINE 20 MG TAB PO SCH (12:32)
[2018-02-23 13:00] VITALS: BP 149/77
[2018-02-23] MEDS ORDERED: TESTOSTERONE CYPIONATE 200 MG/ML 1ML VIAL IM ONE (13:15)
[2018-02-23] MEDS ORDERED: EPOETIN ALFA 10,000 UNIT/1 ML VIAL SC ONE ×2 (15:15→16:00)
[2018-02-23 17:00] VITALS: BP 146/70
[2018-02-23 17:10] LABS: Urine Bacteria FEW /hpf (None Seen); Urine Blood TRACE /uL (Negative); Urine Specific Gravity 1.015 (1.001-1.035); Urine WBC 602 /hpf (0 - 5); Urine WBC Clumps PRESENT /hpf (None Seen)
[2018-02-23 21:30] VITALS: BP 110/79
[2018-02-23] MEDS: ONDANSETRON ODT 4 MG TAB PO PRN (21:59)
[2018-02-23] MEDS: ROPINIROLE 1MG TABLET PO SCH (22:00)
[2018-02-24] MEDS: IPRATROPIUM BROM 0.5 MG/2.5ML INH SOL NEB SCH ×4 (00:24→19:16)
[2018-02-24 00:32] LABS: Magnesium 1.9 mg/dL (1.6-2.6)
[2018-02-24] MEDS: HYDROcodone-ACET 7.5/325MG TAB PO PRN (04:58)
[2018-02-24 05:00] VITALS: BP 110/79
[2018-02-24] MEDS: METOCLOPRAMIDE HCL 10 MG TAB PO SCH ×3 (06:29→21:54)
[2018-02-24 09:00] VITALS: BP 101/59
[2018-02-24] MEDS: Ensure Enlive Strawberry 8oz Bottle PO SCH ×2 (09:52→18:26)
[2018-02-24] MEDS: APIXABAN 2.5 MG TAB PO SCH (09:53)
[2018-02-24] MEDS: FAMOTIDINE 20 MG TAB PO SCH (09:53)
[2018-02-24] MEDS: CYANOCOBALAMIN 500 MCG TAB PO SCH (09:53)
[2018-02-24] MEDS: FLUDROCORTISONE ACETATE 0.1 MG TAB PO SCH ×2 (09:53→21:54)
[2018-02-24] MEDS: predniSONE 20 MG TAB PO SCH (09:53)
[2018-02-24] MEDS: CLOBETASOL PROPIONATE 0.05% TOP SCH ×2 (09:54→22:06)
[2018-02-24] MEDS: POTASSIUM EFFERVESENT TAB 25 MEQ PO SCH ×2 (09:54→21:55)
[2018-02-24] MEDS: FUROSEMIDE 40 MG/4 ML VIAL IV SCH (09:55)
[2018-02-24] MEDS: OTEZLA 30 MG PO SCH (10:00)
[2018-02-24] MEDS ORDERED: FLUCONAZOLE 100 MG TAB PO SCH (10:00)
[2018-02-24] MEDS: FOLIC ACID 1 MG in D5W 5% 50 ML IV SCH (10:23)
[2018-02-24 13:00] VITALS: BP 110/60
[2018-02-24] MEDS ORDERED: SODIUM CHL 3% 500 ML IV ONE (16:15)
[2018-02-24 17:00] VITALS: BP 118/58
[2018-02-24] MEDS: ROPINIROLE 1MG TABLET PO SCH (21:53)
[2018-02-24] MEDS: NYSTATIN TOPICAL POWDER 15GM TOP SCH (21:55)
[2018-02-24 22:00] VITALS: BP 130/65
[2018-02-25 05:00] VITALS: BP 149/97
[2018-02-25] MEDS: METOCLOPRAMIDE HCL 10 MG TAB PO SCH ×3 (06:01→21:02)
[2018-02-25] MEDS: IPRATROPIUM BROM 0.5 MG/2.5ML INH SOL NEB SCH ×4 (06:29→23:43)
[2018-02-25 07:36] VITALS: BP 140/61
[2018-02-25] MEDS: FOLIC ACID 1 MG in D5W 5% 50 ML IV SCH (09:39)
[2018-02-25] MEDS: FLUDROCORTISONE ACETATE 0.1 MG TAB PO SCH ×2 (09:40→21:01)
[2018-02-25] MEDS: Ensure Enlive Strawberry 8oz Bottle PO SCH ×2 (09:40→18:24)
[2018-02-25] MEDS: FUROSEMIDE 40 MG/4 ML VIAL IV SCH (09:40)
[2018-02-25] MEDS: CYANOCOBALAMIN 500 MCG TAB PO SCH (09:40)
[2018-02-25] MEDS: POTASSIUM EFFERVESENT TAB 25 MEQ PO SCH ×2 (09:40→21:01)
[2018-02-25] MEDS: APIXABAN 2.5 MG TAB PO SCH (09:40)
[2018-02-25] MEDS: FAMOTIDINE 20 MG TAB PO SCH (09:40)
[2018-02-25] MEDS: predniSONE 20 MG TAB PO SCH (09:40)
[2018-02-25] MEDS: NYSTATIN TOPICAL POWDER 15GM TOP SCH ×2 (09:41→21:08)
[2018-02-25] MEDS: OTEZLA 30 MG PO SCH (09:42)
[2018-02-25] MEDS: CLOBETASOL PROPIONATE 0.05% TOP SCH ×2 (09:42→21:08)
[2018-02-25 12:06] VITALS: BP 116/68
[2018-02-25 17:00] VITALS: BP 121/69
[2018-02-25] MEDS: ROPINIROLE 1MG TABLET PO SCH (21:09)
[2018-02-25 22:00] VITALS: BP 129/61
[2018-02-25 23:11] VITALS: BP 129/61
[2018-02-25] MEDS: HYDROcodone-ACET 10/325MG TAB PO PRN (23:58)
[2018-02-26 05:00] VITALS: BP 138/93
[2018-02-26] MEDS: METOCLOPRAMIDE HCL 10 MG TAB PO SCH ×2 (06:19→14:00)
[2018-02-26] MEDS: IPRATROPIUM BROM 0.5 MG/2.5ML INH SOL NEB SCH ×2 (07:04→12:06)
[2018-02-26] MEDS: Ensure Enlive Strawberry 8oz Bottle PO SCH (08:00)
[2018-02-26] MEDS: FOLIC ACID 1 MG in D5W 5% 50 ML IV SCH (10:00)
[2018-02-26] MEDS: OTEZLA 30 MG PO SCH (10:00)
[2018-02-26] MEDS: POTASSIUM EFFERVESENT TAB 25 MEQ PO SCH (10:19)
[2018-02-26] MEDS: predniSONE 20 MG TAB PO SCH (10:19)
[2018-02-26] MEDS: CYANOCOBALAMIN 500 MCG TAB PO SCH (10:19)
[2018-02-26] MEDS: FUROSEMIDE 40 MG/4 ML VIAL IV SCH (10:19)
[2018-02-26] MEDS: FAMOTIDINE 20 MG TAB PO SCH (10:20)
[2018-02-26] MEDS: FLUDROCORTISONE ACETATE 0.1 MG TAB PO SCH (10:20)
[2018-02-26] MEDS: NYSTATIN TOPICAL POWDER 15GM TOP SCH (10:20)
[2018-02-26] MEDS: APIXABAN 2.5 MG TAB PO SCH (10:20)
[2018-02-26] MEDS: CLOBETASOL PROPIONATE 0.05% TOP SCH (10:20)
[2018-02-26] MEDS: HYDROcodone-ACET 7.5/325MG TAB PO PRN (10:38)
[2018-02-26 13:52] LABS: Basophils # (auto) 0 uL; Basophils % (auto) 0.1 % (0.0-2.0); Eosinophils # (auto) 0.2 uL; Hematocrit 30.4 % (36.0-46.0); Hemoglobin 9.8 g/dL (12.2-16.2); Lymphocytes # (auto) 1.3 uL; Monocytes % (auto) 6.4 % (0.0-12.0); Red Blood Cells 3.87 10^6/uL (4.0-5.20); Red Cell Distribution Width 16.5 % (11.8-14.3)
[2018-02-26 13:54] LABS: Eosinophils % (auto) 1.6 % (0.0-7.0); Lymphocytes % (auto) 11.6 % (10.0-50.0); Mean Corpuscular Hemoglobin 25.3 pg (28.0-32.0); Mean Corpuscular Hgb Conc. 32.2 g/dL (32.0-36.0); Mean Corpuscular Volume 78.6 fL (80.0-100.0); Monocytes # (auto) 0.7 uL; Neutrophils # (auto) 9.3 uL; Neutrophils % (auto) 80.3 % (37.0-80.0); Nucleated Red Blood Cells % 0.1 %; Platelet Count (auto) 280 10^3/uL (140-450); White Blood Cell 11.6 10^3/uL (4.4-10.8)
[2018-02-26 14:12] LABS: Albumin 2.4 g/dL (3.4-5.0); Calcium 8.6 mg/dL (8.5-10.1); Potassium 5.5 mmol/L (3.5-5.1)
[2018-02-26 14:14] LABS: Bilirubin, Total 0.3 mg/dL (0.2-1.0)
[2018-02-26 14:37] VITALS: BP 136/76
== END 2018-02-26 16:00 | DRG 871 ==
LOC: EDBD 11:46 → ER 11:46 → OVERFLOW 11:47 → TELE-WESTW 02-02 21:50 → ICU CENTRL 02-10 17:50 → DOU IN ICU 02-10 18:32 → ICU WEST 02-13 16:29 → TELE-EAST 02-21 20:54
PROVIDERS: ADMIT Internal Medicine; ATTEND Internal Medicine Cardiovascular Disease
PROC: 02H633Z Insertion of Infusion Device into Right Atrium, Percutaneous Approach (ICD-10-PCS; 2018-02-11)
PROC: 30233N1 Transfusion of Nonautologous Red Blood Cells into Peripheral Vein, Percutaneous Approach (ICD-10-PCS; principal; 2018-02-12)
PROC: 4A023N8 Measurement of Cardiac Sampling and Pressure, Bilateral, Percutaneous Approach (ICD-10-PCS; 2018-02-21)
PROC: B2111ZZ Fluoroscopy of Multiple Coronary Arteries using Low Osmolar Contrast (ICD-10-PCS; 2018-02-21)
PROC: B2121ZZ Fluoroscopy of Single Coronary Artery Bypass Graft using Low Osmolar Contrast (ICD-10-PCS; 2018-02-21)
DX: A41.9 Sepsis, unspecified organism (principal); G93.41 Metabolic encephalopathy; J96.90 Respiratory failure, unspecified, unspecified whether with hypoxia or hypercapnia; E87.1 Hypo-osmolality and hyponatremia; E44.0 Moderate protein-calorie malnutrition; I13.0 Hypertensive heart and chronic kidney disease with heart failure and stage 1 through stage 4 chronic kidney disease, or unspecified chronic kidney disease; N18.4 Chronic kidney disease, stage 4 (severe); B37.49 Other urogenital candidiasis; E27.40 Unspecified adrenocortical insufficiency; Z68.42 Body mass index [BMI] 45.0-49.9, adult; D63.8 Anemia in other chronic diseases classified elsewhere; E53.8 Deficiency of other specified B group vitamins; E03.9 Hypothyroidism, unspecified; E11.22 Type 2 diabetes mellitus with diabetic chronic kidney disease; G90.8 Other disorders of autonomic nervous system; E66.01 Morbid (severe) obesity due to excess calories; E86.9 Volume depletion, unspecified; M54.9 Dorsalgia, unspecified; I50.9 Heart failure, unspecified; G25.81 Restless legs syndrome; G47.33 Obstructive sleep apnea (adult) (pediatric); I48.0 Paroxysmal atrial fibrillation; I67.2 Cerebral atherosclerosis; J44.9 Chronic obstructive pulmonary disease, unspecified; M19.90 Unspecified osteoarthritis, unspecified site; T50.2X5A Adverse effect of carbonic-anhydrase inhibitors, benzothiadiazides and other diuretics, initial encounter; Z74.01 Bed confinement status; Z82.49 Family history of ischemic heart disease and other diseases of the circulatory system; Z88.0 Allergy status to penicillin; Z88.2 Allergy status to sulfonamides; Z79.899 Other long term (current) drug therapy; Z95.1 Presence of aortocoronary bypass graft; Z82.5 Family history of asthma and other chronic lower respiratory diseases; Z86.718 Personal history of other venous thrombosis and embolism; Z87.442 Personal history of urinary calculi; Z90.49 Acquired absence of other specified parts of digestive tract; Z81.8 Family history of other mental and behavioral disorders
CPT/HCPCS: 36415; 36600; 70450; 71045; 74176; 80048; 80053; 80202; 80320; 81001; 82378; 82607; 82746; 82805; 82962; 83605; 83735; 83880; 84132; 84484; 85007; 85025; 85027; 85610; 86850; 86900; 86901; 86920; 87040; 87070; 87081; 87086; 87088; 87186; 87205; 92610; 93005; 93886; 94640; 95819; 96361; 96365; 96375; 96379; 97110; 97163; 97530; 99152; A6257; C1751; G0378; J0696; J0885; J1071; J1450; J1956; J2001; J2185; J2250; J2405; J3480; J7060; Q0162; Q9967

== ENCOUNTER 2018-04-10 22:11 | Emergency (ER) | payer MEDICARE, MEDICAID ==
[~2018-04-10] VITALS: Ht 162.6 cm; Wt 158.8 kg
[~2018-04-10 22:11] MED LIST changes: +ACET-1156 PO; +APIX2.5T PO; -APRE1TAB2 PO; -ASPI-231 PO; -BISA-13 PO; +CYAN500L3 PO; +FLUD0.1T2 PO; +FOLI1TAB6 PO; -HYDR-2595; -LEVO250T19 PO; -LORA-654 PO; -MELO1TAB56 PO; +MULTTAB61 PO; -NAS17NSL; -OXYB15TA12 PO; +PANT40TA2 PO; -POTA10TA51 PO; +POTA20TA53 PO; -SACC250C PO
[2018-04-10 23:21] LABS: Basophils # (auto) 0.1 uL; Eosinophils # (auto) 0.7 uL; Hemoglobin 10.4 g/dL (12.2-16.2); Monocytes # (auto) 1.4 uL
[2018-04-10 23:24] LABS: Basophils % (auto) 0.5 % (0.0-2.0); Eosinophils % (auto) 3.5 % (0.0-7.0); Hematocrit 31.8 % (36.0-46.0); Lymphocytes # (auto) 2.8 uL; Lymphocytes % (auto) 14.6 % (10.0-50.0); Mean Corpuscular Hemoglobin 26.5 pg (28.0-32.0); Mean Corpuscular Hgb Conc. 32.6 g/dL (32.0-36.0); Mean Corpuscular Volume 81.4 fL (80.0-100.0); Monocytes % (auto) 7.3 % (0.0-12.0); Neutrophils # (auto) 14.1 uL; Neutrophils % (auto) 74.1 % (37.0-80.0); Platelet Count (auto) 408 10^3/uL (140-450); Red Blood Cells 3.91 10^6/uL (4.0-5.20); Red Cell Distribution Width 19.7 % (11.8-14.3); White Blood Cell 19.1 10^3/uL (4.4-10.8)
[2018-04-10 23:41] LABS: Calcium 9.1 mg/dL (8.5-10.1)
[2018-04-10 23:45] LABS: Albumin 2.2 g/dL (3.4-5.0); BUN/Creatinine Ratio 10.6
[2018-04-10 23:47] LABS: Bilirubin, Total 0.3 mg/dL (0.2-1.0); Potassium 2.9 mmol/L (3.5-5.1); Total Protein 6.8 g/dL (6.4-8.2)
[2018-04-11] MEDS: POTASSIUM CHL 20 Meq TABLET PO ONE (00:20)
[2018-04-11] MEDS: SODIUM CHLORIDE 0.9% 1,000 ML IV ONE (01:37)
[2018-04-11] MEDS: VANCOMYCIN 1GM/250ML 250 ML IV ONE (02:20)
[2018-04-11 03:00] LABS: Urine Amorphous Crystal FEW /hpf (None Seen); Urine Bacteria MOD /hpf (None Seen); Urine Blood 1+ /uL (Negative); Urine Hyaline Cast FEW /lpf (0 - 2); Urine Mucus FEW (None Seen); Urine Specific Gravity 1.009 (1.001-1.035); Urine WBC 159 /hpf (0 - 5)
[2018-04-11] MEDS: HYDROcodone-ACET 5/325MG TAB PO ONE (12:58)
[2018-04-11 15:18] VITALS: BP 117/74
== END 2018-04-11 16:55 | disposition home or self-care (01) ==
LOC: ER 22:11 → EDBD 22:11 → ER 04-11 16:55
DX: M75.101 Unspecified rotator cuff tear or rupture of right shoulder, not specified as traumatic (principal); N39.0 Urinary tract infection, site not specified; E87.6 Hypokalemia; E43 Unspecified severe protein-calorie malnutrition; E11.22 Type 2 diabetes mellitus with diabetic chronic kidney disease; I13.0 Hypertensive heart and chronic kidney disease with heart failure and stage 1 through stage 4 chronic kidney disease, or unspecified chronic kidney disease; N18.9 Chronic kidney disease, unspecified; I50.89 Other heart failure; I48.91 Unspecified atrial fibrillation; J44.9 Chronic obstructive pulmonary disease, unspecified; E07.9 Disorder of thyroid, unspecified; Z68.44 Body mass index [BMI] 60.0-69.9, adult; Z79.4 Long term (current) use of insulin; Z88.0 Allergy status to penicillin; Z88.1 Allergy status to other antibiotic agents; Z88.2 Allergy status to sulfonamides; Z88.6 Allergy status to analgesic agent; Z91.02 Food additives allergy status; Z79.899 Other long term (current) drug therapy
CPT/HCPCS: 36415; 71045; 73200; 80053; 81001; 83605; 85025; 87040; 96365; 96366; 99284; J3370; J7030

== ENCOUNTER → 2018-04-13 | Outpatient (CLI) | payer MEDICARE, MEDICAID | END | disposition home or self-care (01) | LOC: Rad HDHVI 10:07 | PROVIDERS: ATTEND Internal Medicine Cardiovascular Disease | DX: M19.011 Primary osteoarthritis, right shoulder (principal); W19.XXXA Unspecified fall, initial encounter | CPT/HCPCS: 73030 ==

== ENCOUNTER → 2018-04-19 | Outpatient (CLI) | payer MEDICARE, MEDICAID ==
[~2018-04-19] MED LIST changes: +ACETAMINOPHEN 500 MG TAB PO ONE; +ALBUAER3 IN; +ALBUMIN 25% 100 ML IV ONE; +CLOT1CRE13 TOP; +CYANOCOBALAMIN (B-12) 1000 MCG/1 ML VIAL IM ONE; +CYANOCOBALAMIN (B-12) 1000 MCG/1 ML VIAL ONE; +MVI in SODIUM CHLORIDE 0.9% 1,010 ML ONE; +MVI in SODIUM CHLORIDE 0.9% 500 ML IVB ONE; +ONDANSETRON HCL 4 MG/2 ML VIAL IV ONE; +ONDANSETRON HCL 4 MG/2 ML VIAL ONE; +POTA10TA51 PO; +POTASSIUM CHL 10 Meq TABLET PO ONE
[2018-04-19 13:13] LABS: Hematocrit 31.4 % (36.0-46.0); Hemoglobin 10.4 g/dL (12.2-16.2); Mean Corpuscular Hemoglobin 26.9 pg (28.0-32.0); Mean Corpuscular Hgb Conc. 32.9 g/dL (32.0-36.0); Mean Corpuscular Volume 81.6 fL (80.0-100.0); Platelet Count (auto) 439 10^3/uL (140-450); Red Blood Cells 3.85 10^6/uL (4.0-5.20); Red Cell Distribution Width 19.3 % (11.8-14.3); White Blood Cell 20.9 10^3/uL (4.4-10.8)
[2018-04-19 13:22] LABS: Band Neutrophils % (manual) 0; Basophils % (manual) 0 (0.0-2.0); Eosinophils % (manual) 0 (0-7); Metamyelocytes % 0; Myelocytes % 0
[2018-04-19 13:23] LABS: Blast Cells 0; Promyelocytes % 0; Reactive Lymphocytes 0
[2018-04-19 13:29] LABS: Albumin 2.5 g/dL (3.4-5.0); Calcium 9.4 mg/dL (8.5-10.1); Magnesium 1.9 mg/dL (1.6-2.6); Potassium 3.2 mmol/L (3.5-5.1)
[2018-04-19 13:40] LABS: BUN/Creatinine Ratio 25.2; Bilirubin, Total 1.2 mg/dL (0.2-1.0); Total Protein 7.3 g/dL (6.4-8.2)
[2018-04-19 16:24] VITALS: BP 121/48
[2018-04-19 17:42] LABS: Lymphocytes % (manual) 3 (10.0-50.0); Monocytes % (manual) 10 (0-12)
== END | disposition home or self-care (01) ==
LOC: CHF HDHVI 12:17
PROVIDERS: ATTEND Internal Medicine Cardiovascular Disease
DX: I13.0 Hypertensive heart and chronic kidney disease with heart failure and stage 1 through stage 4 chronic kidney disease, or unspecified chronic kidney disease (principal); E11.22 Type 2 diabetes mellitus with diabetic chronic kidney disease; I50.9 Heart failure, unspecified; N18.3 Chronic kidney disease, stage 3 (moderate); M19.011 Primary osteoarthritis, right shoulder; D64.9 Anemia, unspecified; E83.40 Disorders of magnesium metabolism, unspecified; I48.91 Unspecified atrial fibrillation; I70.0 Atherosclerosis of aorta; I25.10 Atherosclerotic heart disease of native coronary artery without angina pectoris; J44.9 Chronic obstructive pulmonary disease, unspecified; K21.9 Gastro-esophageal reflux disease without esophagitis; E03.9 Hypothyroidism, unspecified; E78.5 Hyperlipidemia, unspecified; E66.01 Morbid (severe) obesity due to excess calories; E11.40 Type 2 diabetes mellitus with diabetic neuropathy, unspecified; E11.21 Type 2 diabetes mellitus with diabetic nephropathy; G47.33 Obstructive sleep apnea (adult) (pediatric); I67.2 Cerebral atherosclerosis; I48.0 Paroxysmal atrial fibrillation; I48.2 Chronic atrial fibrillation; I73.9 Peripheral vascular disease, unspecified; E43 Unspecified severe protein-calorie malnutrition; K74.1 Hepatic sclerosis; Z88.0 Allergy status to penicillin; Z88.6 Allergy status to analgesic agent; Z88.1 Allergy status to other antibiotic agents; Z79.4 Long term (current) use of insulin; Z87.440 Personal history of urinary (tract) infections; Z79.82 Long term (current) use of aspirin; Z87.01 Personal history of pneumonia (recurrent); Z68.44 Body mass index [BMI] 60.0-69.9, adult; Z79.01 Long term (current) use of anticoagulants; Z79.899 Other long term (current) drug therapy
CPT/HCPCS: 36415; 80053; 83735; 83880; 85007; 85027; 96365; 96366; 96368; 96372; 96375; G0463; J2405; J3411; J3420; J3475; P9047; 96367

== ENCOUNTER 2018-04-21 11:02 | Emergency (ER) | payer MEDICARE, MEDICAID ==
[~2018-04-21] VITALS: Ht 170.2 cm; Wt 113.4 kg
[~2018-04-21 11:02] MED LIST changes: -ACETAMINOPHEN 500 MG TAB PO ONE; -ALBUAER3 IN; -ALBUMIN 25% 100 ML IV ONE; -CLOT1CRE13 TOP; -CYANOCOBALAMIN (B-12) 1000 MCG/1 ML VIAL IM ONE; -CYANOCOBALAMIN (B-12) 1000 MCG/1 ML VIAL ONE; -MVI in SODIUM CHLORIDE 0.9% 1,010 ML ONE; -MVI in SODIUM CHLORIDE 0.9% 500 ML IVB ONE; -ONDANSETRON HCL 4 MG/2 ML VIAL IV ONE; -ONDANSETRON HCL 4 MG/2 ML VIAL ONE; -POTA10TA51 PO; -POTASSIUM CHL 10 Meq TABLET PO ONE
[2018-04-21 13:14] LABS: Hematocrit 27.6 % (36.0-46.0); Hemoglobin 8.8 g/dL (12.2-16.2); Mean Corpuscular Hemoglobin 26.7 pg (28.0-32.0); Mean Corpuscular Volume 83.4 fL (80.0-100.0); Platelet Count (auto) 344 10^3/uL (140-450); Red Blood Cells 3.31 10^6/uL (4.0-5.20); White Blood Cell 12.7 10^3/uL (4.4-10.8)
[2018-04-21 13:16] LABS: Band Neutrophils % (manual) 0; Basophils % (manual) 0 (0.0-2.0); Blast Cells 0; Metamyelocytes % 0; Myelocytes % 0; Promyelocytes % 0; Reactive Lymphocytes 0
[2018-04-21 13:28] LABS: Albumin 2.3 g/dL (3.4-5.0); BUN/Creatinine Ratio 31.5; Calcium 8.9 mg/dL (8.5-10.1)
[2018-04-21 13:30] LABS: Bilirubin, Total 0.4 mg/dL (0.2-1.0); Total Protein 6.7 g/dL (6.4-8.2)
[2018-04-21] MEDS ORDERED: ALBUAER3 IN (13:47)
[2018-04-21] MEDS ORDERED: POTA10TA51 PO (13:47)
[2018-04-21] MEDS ORDERED: CLOT1CRE13 TOP (13:47)
[2018-04-21 14:07] LABS: Urine WBC None Seen /hpf (0 - 5)
[2018-04-21 14:19] LABS: Urine Amorphous Crystal FEW /hpf (None Seen); Urine Bacteria NONE SEEN /hpf (None Seen); Urine Blood Negative /uL (Negative); Urine Specific Gravity 1.006 (1.001-1.035)
[2018-04-21] MEDS ORDERED: ONDANSETRON HCL 4 MG/2 ML VIAL IV ONE (14:30)
[2018-04-21] MEDS ORDERED: KETOROLAC TROMETH 30 MG/ML 1ML VIAL IV ONE (14:30)
[2018-04-21 15:00] LABS: Eosinophils % (manual) 1 (0-7); Lymphocytes % (manual) 9 (10.0-50.0); Monocytes % (manual) 4 (0-12)
[2018-04-21 21:08] VITALS: BP 137/86
== END 2018-04-21 21:10 | disposition home or self-care (01) ==
LOC: ER 11:02 → EDBD 11:02 → ER 21:08
DX: M25.511 Pain in right shoulder (principal); E87.1 Hypo-osmolality and hyponatremia; R53.1 Weakness; D64.9 Anemia, unspecified; E66.01 Morbid (severe) obesity due to excess calories; I48.91 Unspecified atrial fibrillation; E07.9 Disorder of thyroid, unspecified; E11.22 Type 2 diabetes mellitus with diabetic chronic kidney disease; I13.0 Hypertensive heart and chronic kidney disease with heart failure and stage 1 through stage 4 chronic kidney disease, or unspecified chronic kidney disease; N18.9 Chronic kidney disease, unspecified; I50.9 Heart failure, unspecified; Z88.0 Allergy status to penicillin; Z79.899 Other long term (current) drug therapy; Z88.2 Allergy status to sulfonamides; Z68.39 Body mass index [BMI] 39.0-39.9, adult
CPT/HCPCS: 36415; 70450; 73030; 80053; 81001; 83605; 83880; 84484; 85007; 85027; 87040; 87086; 87088; 87186; 93005; 94761; 96374; 96375; 99284; J1885; J2405

== ENCOUNTER → 2018-04-22 | Outpatient (CLI) | payer MEDICARE, MEDICAID ==
[~2018-04-22] MED LIST changes: -ACET-1156 PO; +ALBUAER3 IN; +CLOT1CRE13 TOP; -CYAN500L3 PO; -FLUD0.1T2 PO; -FOLI1TAB6 PO; -MULTTAB61 PO; -ONDA4TAB5 PO; -PANT40TA2 PO; +POTA10TA51 PO; -POTA20TA53 PO
[2018-04-22 11:00] VITALS: BP 129/57
[2018-04-22 12:15] VITALS: BP 132/59
== END | disposition home or self-care (01) ==
LOC: Rad HDHVI 10:57
PROVIDERS: ATTEND Internal Medicine Cardiovascular Disease
DX: I50.9 Heart failure, unspecified (principal); N28.9 Disorder of kidney and ureter, unspecified
CPT/HCPCS: G0463

== ENCOUNTER → 2018-05-16 | Outpatient (CLI) | payer MEDICARE, MEDICAID ==
[~2018-05-16] VITALS: Ht 30.5 cm; Wt 0.5 kg
[~2018-05-16] MED LIST changes: +CYANOCOBALAMIN (B-12) 1000 MCG/1 ML VIAL IM ONE; +CYANOCOBALAMIN (B-12) 1000 MCG/1 ML VIAL ONE; +KETOROLAC TROMETH 60MG/2ML VIAL IM ONE
[2018-05-16 10:15] VITALS: BP 141/80
--- NOTE | 2018-05-16 10:15 | NUR ---
CHF PT TO CHF CLINIC C/O L ARM PAIN 10/31. PT WEAK AND LETHARGIC. PT HAS NEW PORT A CATH TO R CHEST . WILL CALL DR. MILLER OFFICE FOR ORDER OK TO USE IF NEEDED.
--- NOTE | 2018-05-16 10:45 | NUR ---
CHF Clinic Provider Clinic Provider DR. STOCK pt with new orders received and carried out. TORADOL 60MG IM FOR PAIN, VIT B 12 INJECTION 1000MCG per MD order.
[2018-05-16 10:50] VITALS: BP 121/57
--- NOTE | 2018-05-16 10:50 | NUR ---
CHF Discharge Instructions See e-MAR for any mediations given with this visit. VIT B 12 1000MCG IM L DELTOID, TORADOL 60MG IM R THIGH. Patient education given on disease process. Patient verbalized understanding. Previous labs reviewed. Patient discharged in stable condition with after care instructions and follow up appointment. PT TO FOLLOW UP WITH HER SURGEON NEXT WEEK.
== END | disposition home or self-care (01) ==
LOC: CHF HDHVI 10:20
PROVIDERS: ATTEND Internal Medicine Cardiovascular Disease
DX: I13.0 Hypertensive heart and chronic kidney disease with heart failure and stage 1 through stage 4 chronic kidney disease, or unspecified chronic kidney disease (principal); E11.22 Type 2 diabetes mellitus with diabetic chronic kidney disease; N18.4 Chronic kidney disease, stage 4 (severe); I50.22 Chronic systolic (congestive) heart failure; I50.32 Chronic diastolic (congestive) heart failure; E11.21 Type 2 diabetes mellitus with diabetic nephropathy; E11.40 Type 2 diabetes mellitus with diabetic neuropathy, unspecified; J44.9 Chronic obstructive pulmonary disease, unspecified; K21.9 Gastro-esophageal reflux disease without esophagitis; I70.0 Atherosclerosis of aorta; I48.0 Paroxysmal atrial fibrillation; I25.10 Atherosclerotic heart disease of native coronary artery without angina pectoris; M17.0 Bilateral primary osteoarthritis of knee; E78.5 Hyperlipidemia, unspecified; E78.00 Pure hypercholesterolemia, unspecified; E03.9 Hypothyroidism, unspecified; E66.01 Morbid (severe) obesity due to excess calories; Z68.44 Body mass index [BMI] 60.0-69.9, adult; Z79.01 Long term (current) use of anticoagulants; Z79.82 Long term (current) use of aspirin; Z79.4 Long term (current) use of insulin; Z79.899 Other long term (current) drug therapy; Z87.01 Personal history of pneumonia (recurrent); Z95.1 Presence of aortocoronary bypass graft
CPT/HCPCS: 96372; G0463; J1885; J3420

== ENCOUNTER 2018-08-19 06:36 | Day surgery (SDC) | payer MEDICARE, MEDICAID ==
[~2018-08-19] VITALS: Ht 30.5 cm; Wt 0.5 kg
[~2018-08-19 06:36] MED LIST changes: -CYANOCOBALAMIN (B-12) 1000 MCG/1 ML VIAL IM ONE; -CYANOCOBALAMIN (B-12) 1000 MCG/1 ML VIAL ONE; -KETOROLAC TROMETH 60MG/2ML VIAL IM ONE
[2018-08-19 07:53] VITALS: BP 104/55
[2018-08-19 08:02] VITALS: BP 103/49
[2018-08-19 10:20] VITALS: BP 110/47
[2018-08-19 10:47] VITALS: BP 109/51
--- NOTE | 2018-08-19 11:03 | NUR ---
Pt tolerated blood transfusion well. Portacath needle flushed with heparin 500 units then removed intact. Pt did not want dressing over site. No bleeding noted. Verbal and written d/c instructions provided. Pt and family verbalized understanding. Pt transferred to private wheelchair smoothly without incident, left with family via wheelchair at 1100.
== END 2018-08-19 11:00 | disposition home or self-care (01) ==
LOC: CATH 06:36
PROVIDERS: ATTEND Internal Medicine Cardiovascular Disease
DX: D64.9 Anemia, unspecified (principal); I48.2 Chronic atrial fibrillation; N18.4 Chronic kidney disease, stage 4 (severe); E66.01 Morbid (severe) obesity due to excess calories; E11.22 Type 2 diabetes mellitus with diabetic chronic kidney disease; I13.0 Hypertensive heart and chronic kidney disease with heart failure and stage 1 through stage 4 chronic kidney disease, or unspecified chronic kidney disease; D72.829 Elevated white blood cell count, unspecified; I50.9 Heart failure, unspecified; E03.9 Hypothyroidism, unspecified; J44.1 Chronic obstructive pulmonary disease with (acute) exacerbation; Z88.6 Allergy status to analgesic agent; Z88.1 Allergy status to other antibiotic agents; Z88.2 Allergy status to sulfonamides; Z88.8 Allergy status to other drugs, medicaments and biological substances; N39.0 Urinary tract infection, site not specified; E87.6 Hypokalemia
CPT/HCPCS: 36430; 86850; 86900; 86901; 86920; J1642; J7040; P9016

== ENCOUNTER → 2018-12-14 | Outpatient (CLI) | payer MEDICARE, MEDICAID ==
[~2018-12-14] MED LIST changes: +SODIUM CHLORIDE 0.9% 1,000 ML IV ONE; -SOTA80TA PO; +TRAM-711 PO
--- NOTE | 2018-12-14 11:30 | NUR ---
BROUGHT BY WHEELCHAIR WITH DAUGHTER IN ATTENDANCE AFTER SEEING DR STOCK IN BACK OFFICE. ALERT AND AWAKE WITHOUT DISTRESS. DAUGHTER REPORTS THAT PT HAD A NEAR SYNCOPAL EPISODE IN THE BATHROOM AFTER SEEING THE PHYSICIAN. ORDERS FOR IV FLUIDS AND LABS. RIGHT CHEST PORT ACCESSED. LABS DRAWN AND SENT. Kary Cath Insertion 20 gauge Kary Cath inserted using sterile technique in the upper chest with occlusive dressing over padilla needle. Patient tolerated procedure well. Ordered labs drawn and sent. See e-MAR for medications given during this visit.
--- NOTE | 2018-12-14 11:45 | NUR ---
4 PERSON MAX ASSIST LIFT FROM WHEELCHAIR TO RECLINER CHAIR. TOLERATED WELL. IV FLUIDS IN PROGRESS. WITHOUT DISTRESS.
[2018-12-14 14:35] VITALS: BP 123/56
--- NOTE | 2018-12-14 14:35 | NUR ---
CHF CLINIC Discharge Instructions See e-MAR for any mediations given with this visit. Patient education given on disease process. Patient verbalized understanding. Previous labs reviewed. Patient discharged in stable condition with after care instructions and follow up appointment. NOTE NS [id number] ADMIN BY EAN MCCARTHY HEPARIN ADMIN BY KEMAL MCCARTHY
[2018-12-14 14:54] LABS: Basophils # (auto) 0.1 uL; Monocytes # (auto) 1.1 uL; White Blood Cell 10.8 10^3/uL (4.4-10.8)
[2018-12-14 14:55] LABS: Basophils % (auto) 0.7 % (0.0-2.0); Eosinophils # (auto) 0.7 uL; Eosinophils % (auto) 6.5 % (0.0-7.0); Hematocrit 34.6 % (36.0-46.0); Hemoglobin 11.2 g/dL (12.2-16.2); Lymphocytes % (auto) 18.7 % (10.0-50.0); Mean Corpuscular Hgb Conc. 32.4 g/dL (32.0-36.0); Mean Corpuscular Volume 80.2 fL (80.0-100.0); Monocytes % (auto) 10.5 % (0.0-12.0); Neutrophils # (auto) 6.8 uL; Neutrophils % (auto) 63.6 % (37.0-80.0); Platelet Count (auto) 444 10^3/uL (140-450); Red Blood Cells 4.31 10^6/uL (4.0-5.20); Red Cell Distribution Width 17.6 % (11.8-14.3)
[2018-12-14 15:07] LABS: BUN/Creatinine Ratio 22.6; Calcium 9.1 mg/dL (8.5-10.1); Potassium 3.5 mmol/L (3.5-5.1)
== END | disposition home or self-care (01) ==
LOC: CHF HDHVI 11:47
PROVIDERS: ATTEND Internal Medicine Cardiovascular Disease
DX: I13.0 Hypertensive heart and chronic kidney disease with heart failure and stage 1 through stage 4 chronic kidney disease, or unspecified chronic kidney disease (principal); E11.22 Type 2 diabetes mellitus with diabetic chronic kidney disease; I50.42 Chronic combined systolic (congestive) and diastolic (congestive) heart failure; N18.4 Chronic kidney disease, stage 4 (severe); R55 Syncope and collapse; I42.9 Cardiomyopathy, unspecified; I48.0 Paroxysmal atrial fibrillation; D64.9 Anemia, unspecified; R53.83 Other fatigue; J44.9 Chronic obstructive pulmonary disease, unspecified; E03.9 Hypothyroidism, unspecified; E66.01 Morbid (severe) obesity due to excess calories; Z68.36 Body mass index [BMI] 36.0-36.9, adult; E11.21 Type 2 diabetes mellitus with diabetic nephropathy; Z79.899 Other long term (current) drug therapy
CPT/HCPCS: 36415; 80048; 85025; 96360; 96361; G0463; J1642; J7030

== ENCOUNTER → 2018-12-22 | Outpatient (CLI) | payer MEDICARE, MEDICAID ==
[~2018-12-22] MED LIST changes: -SODIUM CHLORIDE 0.9% 1,000 ML IV ONE
[2018-12-22 12:57] VITALS: BP 134/88
--- NOTE | 2018-12-22 12:57 | NUR ---
CHF PT TO CHF CLINIC FROM BACK OFFICE FOR LAB DRAWS[facility]
--- NOTE | 2018-12-22 13:00 | NUR ---
Scheduled Kary Cath Flush 20 gauge Johnson needle inserted using sterile technique in the upper chest. Kary Cath flushed with 20 mL's of 0.9% NS followed by 500 units per 5mL's Heparin. Johnson Needle D/C'd with sterile occlusive dressing to site. Patient tolerated procedure well. See e-MAR for medications given during this visit.
--- NOTE | 2018-12-22 13:06 | NUR ---
Discharge Instructions See e-MAR for any mediations given with this visit. Patient education given on disease process. Patient verbalized understanding. Previous labs reviewed. Patient discharged in stable condition with after care instructions and follow up appointment. MEDICATIONS HEPARIN 500 UNITS IVP X 1
[2018-12-22 16:06] LABS: Basophils # (auto) 0.1 uL; Lymphocytes # (auto) 2.2 uL; Neutrophils # (auto) 9.1 uL; White Blood Cell 13.1 10^3/uL (4.4-10.8)
[2018-12-22 16:09] LABS: Basophils % (auto) 0.6 % (0.0-2.0); Eosinophils # (auto) 0.7 uL; Eosinophils % (auto) 5.5 % (0.0-7.0); Hemoglobin 10.5 g/dL (12.2-16.2); Mean Corpuscular Hemoglobin 25.4 pg (28.0-32.0); Mean Corpuscular Hgb Conc. 31.9 g/dL (32.0-36.0); Mean Corpuscular Volume 79.8 fL (80.0-100.0); Monocytes % (auto) 7.3 % (0.0-12.0); Neutrophils % (auto) 69.6 % (37.0-80.0); Platelet Count (auto) 436 10^3/uL (140-450); Red Blood Cells 4.13 10^6/uL (4.0-5.20); Red Cell Distribution Width 17.6 % (11.8-14.3)
[2018-12-22 16:11] LABS: BUN/Creatinine Ratio 29.1; Calcium 9.5 mg/dL (8.5-10.1); Potassium 3.6 mmol/L (3.5-5.1)
== END | disposition home or self-care (01) ==
LOC: Rad HDHVI 11:37
PROVIDERS: ATTEND Internal Medicine Cardiovascular Disease
DX: Z45.2 Encounter for adjustment and management of vascular access device (principal); I13.2 Hypertensive heart and chronic kidney disease with heart failure and with stage 5 chronic kidney disease, or end stage renal disease; E11.22 Type 2 diabetes mellitus with diabetic chronic kidney disease; I50.42 Chronic combined systolic (congestive) and diastolic (congestive) heart failure; N18.4 Chronic kidney disease, stage 4 (severe); I35.0 Nonrheumatic aortic (valve) stenosis; I42.9 Cardiomyopathy, unspecified; J44.9 Chronic obstructive pulmonary disease, unspecified; I48.0 Paroxysmal atrial fibrillation; R06.02 Shortness of breath; R00.2 Palpitations; R60.9 Edema, unspecified; E11.21 Type 2 diabetes mellitus with diabetic nephropathy; E03.9 Hypothyroidism, unspecified; E66.01 Morbid (severe) obesity due to excess calories; Z68.36 Body mass index [BMI] 36.0-36.9, adult; Z79.899 Other long term (current) drug therapy
CPT/HCPCS: 36415; 80048; 85025; 93306; G0463; J1642; 96523

== ENCOUNTER 2019-03-26 13:30 | Inpatient (IN) | payer MEDICARE, MEDICAID ==
[~2019-03-26] VITALS: Ht 165.1 cm; Wt 102.4 kg
[2019-03-26 15:41] LABS: Basophils # (auto) 0.1 uL; Eosinophils # (auto) 0 uL; Neutrophils # (auto) 18.1 uL; White Blood Cell 21.7 10^3/uL (4.4-10.8)
[2019-03-26 15:44] LABS: Basophils % (auto) 0.5 % (0.0-2.0); Eosinophils % (auto) 0.1 % (0.0-7.0); Hematocrit 28.1 % (36.0-46.0); Lymphocytes % (auto) 4.6 % (10.0-50.0); Mean Corpuscular Hemoglobin 24.3 pg (28.0-32.0); Mean Corpuscular Hgb Conc. 32.1 g/dL (32.0-36.0); Mean Corpuscular Volume 75.9 fL (80.0-100.0); Monocytes # (auto) 2.5 uL; Monocytes % (auto) 11.5 % (0.0-12.0); Neutrophils % (auto) 83.3 % (37.0-80.0); Platelet Count (auto) 379 10^3/uL (140-450); Red Blood Cells 3.71 10^6/uL (4.0-5.20); Red Cell Distribution Width 15.4 % (11.8-14.3)
[2019-03-26 16:16] LABS: Urine Bacteria MOD /hpf (None Seen); Urine Blood 1+ /uL (Negative); Urine Hyaline Cast FEW /lpf (0 - 2); Urine Mucus FEW (None Seen); Urine Specific Gravity 1.015 (1.001-1.035); Urine WBC 1120 /hpf (0 - 5); Urine WBC Clumps PRESENT /hpf (None Seen)
[2019-03-26 16:37] LABS: BUN/Creatinine Ratio 24.3; Calcium 9.2 mg/dL (8.5-10.1); Potassium 3.3 mmol/L (3.5-5.1)
[2019-03-26 16:44] LABS: Bilirubin, Total 0.5 mg/dL (0.2-1.0); Total Protein 7.3 g/dL (6.4-8.2)
[2019-03-26 17:15] LABS: Magnesium 2.1 mg/dL (1.6-2.6)
[2019-03-26] MEDS ORDERED: MORPHINE SULF INJ 2 MG/ML SYRINGE 1ML IV PRN (17:15)
[2019-03-26] MEDS ORDERED: LEVOFLOXACIN 250MG 50 ML IV ONE (17:15)
[2019-03-26] MEDS ORDERED: NITROGLYCERIN 0.4 MG SL TAB SL PRN (17:15)
--- NOTE | 2019-03-26 18:45 | NUR ---
Telemetry admit from ER MARIANTANESHA admitted to Telemetry unit. Patient oriented to Rosario RubinRN primary RN, unit, room, bed, and unit policies regarding patient care and visiting hours. Patient now on continuous telemetry monitoring, tele box #8 and telemetry reading on arrival to unit is NSR. Patient AAOx4, on room air and bedrest. Contact precautions in place. Hook catheter patent and draining to gravity. No acute S/S of distress or SOB noted. Weighed by bed scale and encouraged to call if they need something. All questions and concerns addressed, patient verbalized understanding. Bed in lowest locked position, side rails up x2, call light within reach. Will continue to monitor very hour and as needed.
[2019-03-26 19:00] LABS: Magnesium 2.2 mg/dL (1.6-2.6)
[2019-03-26 19:50] VITALS: BP 98/57
[2019-03-26 20:00] VITALS: BP 133/55
[2019-03-26] MEDS: traMADol HCL 50 MG TAB PO PRN (21:30)
[2019-03-26 22:00] VITALS: BP 133/55
[2019-03-26] MEDS: ROPINIROLE HCL 1 MG PO SCH (22:00)
[2019-03-26] MEDS ORDERED: PIPERACILLIN-TAZOB 2.25GM 50 ML IV SCH (22:00)
[2019-03-26] MEDS: FAMOTIDINE 20 MG TAB PO SCH (22:20)
[2019-03-26] MEDS: APIXABAN 2.5 MG TAB PO SCH (22:20)
[2019-03-27 05:00] VITALS: BP 94/57
--- NOTE | 2019-03-27 08:06 | NUR ---
OPENING SHIFT NOTE: PATIENT RESTING IN BED. UPDATED PATIENT ON PLAN OF CARE. ADDRESSED ALL CONCERNS. RESPIRATIONS EVEN AND UNLABORED. CALL LIGHT PLACED WITHIN REACH. MCBRIDE HUNG BELOW BLADDER FREE OF KINKS, BED IN LOWEST LOCKED POSITION. FALL PRECAUTIONS IN PLACE. WILL CONTINUE TO MONITOR.
[2019-03-27 08:48] VITALS: BP 102/67
[2019-03-27] MEDS: ASPirin 81 mg TAB PO SCH (09:05)
[2019-03-27] MEDS: LEVOTHYROXINE SODIUM 25 MCG TAB PO SCH (09:05)
[2019-03-27] MEDS: FUROSEMIDE 20 MG TAB PO SCH (09:06)
[2019-03-27] MEDS: POTASSIUM CHL 20 Meq TABLET PO SCH (09:07)
[2019-03-27] MEDS: APIXABAN 2.5 MG TAB PO SCH ×2 (09:08→21:45)
[2019-03-27] MEDS: traMADol HCL 50 MG TAB PO PRN (09:08)
[2019-03-27] MEDS: FAMOTIDINE 20 MG TAB PO SCH (09:08)
[2019-03-27] MEDS: SOTALOL HCL 80 MG TAB PO SCH (09:11)
--- NOTE | 2019-03-27 09:31 | NUR ---
SPOKE WITH PHARMACY REGARDING PENICILLIN ALLERGY AND ZOSYN ORDER. PER PHARMACY, HOLD WILL BE RELEASED IF VERIFIED BY PRIMARY MD.
--- NOTE | 2019-03-27 12:04 | NUR ---
CALL BACK FROM DR. STOCK. NEW ORDERS GIVEN AND PHARMACY MADE AWARE OF CHANGES TO ANTIBIOTICS.
[2019-03-27] MEDS ORDERED: LEVOFLOXACIN 500MG 100 ML IV SCH (12:05)
[2019-03-27 12:21] VITALS: BP 102/70
--- NOTE | 2019-03-27 13:32 | NUR ---
POM TAKEN TO PHARMACY BY THIS RN. WRISTBAND APPLIED TO PATIENT.
[2019-03-27] MEDS ORDERED: GENTAMICIN IV ONE (14:15)
[2019-03-27] MEDS ORDERED: GENTAMICIN SULFATE 240 MG in D5W 5% 100 ML IV ONE (14:30)
--- NOTE | 2019-03-27 15:29 | NUR ---
BARRIER CREAM APPLIED TO BILATERAL BUTTOCKS, PER PATIENT REQUEST.
--- NOTE | 2019-03-27 15:41 | NUR ---
FAX SENT TO DIETARY FOR PATIENT GLUCERNA CHOCOLATE FLAVOR REQUEST INSTEAD OF VANILLA
--- NOTE | 2019-03-27 16:31 | NUR ---
CALL FROM PHARMACY WITH NEW RECOMMENDATIONS FOR MEROPENEM ANTIBIOTIC INSTEAD OF LEVAQUIN. THIS RN WILL ATTEMPT TO PASS MESSAGE ALONG TO PRIMARY MD MONTRELL.
--- NOTE | 2019-03-27 16:38 | NUR ---
CALL FROM PHARMACY: FURTHER RECOMMENDATIONS BY PHARMACY MADE. BEST CHOICE FOR PATIENT SPECIFIC INFECTION ANTIBIOTIC IS [id number]. THIS RN LEFT MESSAGE WITH MD STOCK.
--- NOTE | 2019-03-27 16:48 | NUR ---
MD STOCK RETURNED MESSAGE. NEW ORDERS GIVEN. TIFFANI ANG.
[2019-03-27 16:51] VITALS: BP 103/48
--- NOTE | 2019-03-27 19:27 | NUR ---
CARE ENDORSED TO ANTONY MCCARTHY.
[2019-03-27 21:21] VITALS: BP 96/59
[2019-03-27] MEDS: ROPINIROLE HCL 1 MG PO SCH (21:45)
[2019-03-27] MEDS: CeftoloZANE-TAZOB 0.75 GM in D5W 5% 100 ML IV SCH (21:49)
[2019-03-28 05:10] VITALS: BP 102/73
[2019-03-28] MEDS: CeftoloZANE-TAZOB 0.75 GM in D5W 5% 100 ML IV SCH ×3 (05:57→22:20)
--- NOTE | 2019-03-28 07:27 | NUR ---
CARE ENDORSED TO AM SHIFT RN
--- NOTE | 2019-03-28 07:30 | NUR ---
Opening Shift Note Assumed care of patient, awake and alert. No S/S of distress/SOB or pain. Instructed on POC and to call for assist PRN, fall precautions in place per safety protocol. Will continue to monitor for changes Q1hr and PRN.
[2019-03-28 08:00] VITALS: BP 106/61
[2019-03-28 09:00] VITALS: BP 106/61
--- NOTE | 2019-03-28 09:11 | NUR ---
Micro re urine per Micro, urine is positive for ESBL. MD Cifuentes notified, no new orders at this time. ross furnace operatormarina Chavez aware. Patient on contact isolation precautions per protocol. Cont care
[2019-03-28] MEDS: ASPirin 81 mg TAB PO SCH (09:51)
[2019-03-28] MEDS: POTASSIUM CHL 20 Meq TABLET PO SCH (09:52)
[2019-03-28] MEDS: LEVOTHYROXINE SODIUM 25 MCG TAB PO SCH (09:52)
[2019-03-28] MEDS: FAMOTIDINE 20 MG TAB PO SCH (09:52)
[2019-03-28] MEDS: APIXABAN 2.5 MG TAB PO SCH ×2 (09:52→22:20)
[2019-03-28] MEDS: FUROSEMIDE 20 MG TAB PO SCH (09:53)
[2019-03-28] MEDS: SOTALOL HCL 80 MG TAB PO SCH (09:54)
[2019-03-28] MEDS: traMADol HCL 50 MG TAB PO PRN (09:54)
[2019-03-28 13:00] VITALS: BP 98/58
--- NOTE | 2019-03-28 15:14 | NUR ---
AT BEDSIDE MD Cifuentes at bedside, aware of patient status. Per MD to resume home med, "Otezla." Patient instructed to bring home medication and verbalized understanding. Per patient, she will have family member bring in med. No signs of distress or sob noted at this time, will continue to monitor.
[2019-03-28] MEDS ORDERED: APRE1TAB2 PO ×2 (15:43→19:28)
[2019-03-28 17:00] VITALS: BP 107/67
--- NOTE | 2019-03-28 19:02 | NUR ---
Endorsed Care Endorsed care to manager night FABIO Hollins
[2019-03-28 22:00] VITALS: BP 91/60
[2019-03-28] MEDS: ROPINIROLE HCL 1 MG PO SCH (22:20)
[2019-03-29 05:00] VITALS: BP 115/64
--- NOTE | 2019-03-29 05:30 | NUR ---
WORSENING PSORIASIS NOTED ON THE PATIENT'S BILATERAL BUTTOCKS AND BILATERAL THIGHS NOTED. PHOTOS TAKEN. WOUND CARE CONSULT PLACED
[2019-03-29] MEDS: CeftoloZANE-TAZOB 0.75 GM in D5W 5% 100 ML IV SCH (06:05)
[2019-03-29 06:10] LABS: Albumin 2.6 g/dL (3.4-5.0); BUN/Creatinine Ratio 24.2; Calcium 8.4 mg/dL (8.5-10.1)
[2019-03-29 06:12] LABS: Bilirubin, Total 0.2 mg/dL (0.2-1.0); Total Protein 6.3 g/dL (6.4-8.2)
--- NOTE | 2019-03-29 07:06 | NUR ---
CARE ENDORSED TO AM SHIFT RN
--- NOTE | 2019-03-29 07:30 | NUR ---
Opening Shift Note Assumed care of patient, awake and alert. No S/S of distress/SOB or pain. Instructed on POC and to call for assist PRN, fall precautions in place per safety protocol, will continue to monitor for changes Q1hr and PRN.
[2019-03-29 09:00] VITALS: BP 106/64
[2019-03-29] MEDS: ASPirin 81 mg TAB PO SCH (10:12)
[2019-03-29] MEDS: POTASSIUM CHL 20 Meq TABLET PO SCH (10:13)
[2019-03-29] MEDS: APIXABAN 2.5 MG TAB PO SCH ×2 (10:13→21:26)
[2019-03-29] MEDS: SOTALOL HCL 80 MG TAB PO SCH (10:13)
[2019-03-29] MEDS: LEVOTHYROXINE SODIUM 25 MCG TAB PO SCH (10:14)
[2019-03-29] MEDS: traMADol HCL 50 MG TAB PO PRN (10:14)
[2019-03-29] MEDS: FAMOTIDINE 20 MG TAB PO SCH (10:14)
[2019-03-29] MEDS: FUROSEMIDE 20 MG TAB PO SCH (10:14)
--- NOTE | 2019-03-29 10:22 | NUR ---
WOUND CARE NOTE: PATIENT ADMITTED TO [facility] WITH DIAGNOSIS OF UTI/SEPSIS. PATIENT NOTED UPON ADMIT TO HAVE DRY FLAKY SKIN AREAS TO SKIN. WOUND PHOTOS TAKEN AT THIS TIME PER PROTOCOL BY BEDSIDE NURSE. CURRENT HECTOR SCORE IS 15. PATIENT CAN SELF TURN/REPOSITION SELF. SKIN/WOUND CARE PLAN IN PLACE FOR LOW HECTOR SCORE 15. PATIENT HAS NO WOUNDS. SHE HAS MULTIPLE INTACT PLAQUE PSORIASIS AREAS TO TRUNK/LIMBS. NO NEED FOR DRESSINGS AT THIS TIME. NO WOUND CARE MONITORING NEEDED AT THIS TIME. Addendum: 03/29/19 at 1709 by Ann Hollingsworth RN Amended: Links added.
[2019-03-29 13:00] VITALS: BP 91/55
--- NOTE | 2019-03-29 14:20 | NUR ---
Spoke to Pharmacist gale Miller Per Pharmacist Dorothy, he will change Zerbaxa to Merropenem. This rn instructed him to page doctor Esau to notify he states he will and "last time he already approved it". Dorothy states he will be sending med soon.
[2019-03-29] MEDS: MEROPENEM 1GM IVPB 100 ML IV SCH (16:14)
--- NOTE | 2019-03-29 16:39 | NUR ---
assessment Patient is a 73 year old female who is alert and oriented. Patients cognitive abilities are intact. Prior to admission patient lived home with family and functioned with assistance. Per patient she will return home to her prior living arrangements post discharge and family will transport her home. Patient informed me her PCP is Dr Cifuentes. Patient has an [facility] caregiver who is her daughter nory [phone]. Patient has a hospital bed, richie lift, and wheelchair for home use. Patient is on service with [facility]. Patient wants to resume with [facility] on discharge for PT. Patient feels safe returning home. Patient will need a resumption order on discharge for home health. I informed patient she has a right to speak to a addiction social worker regarding all care. I informed patient she has a right to participate in any and all discharge planning. Patient does not have a POA and advanced directive. I have offered patient information on POA and advanced directives. I informed the patient the advantages and benefits of having an Advanced Directive. Patient verbalized understanding and agreed to discharge plan. Addendum: 03/29/19 at 1643 by Blank GOMEZ Amended: Links added.
[2019-03-29 17:00] VITALS: BP 114/88
--- NOTE | 2019-03-29 17:20 | NUR ---
at bedside MD Cifuentes at bedside, aware of patient's status including increased HR. Unable to obtain POM Otezla at this time due to specialty prescription. MD Cifuentes spoke to patient regarding POC and states he will take care of it. New orders received for Betamethasone cream. Will input orders and medicate as ordered. Cont care
--- NOTE | 2019-03-29 18:29 | NUR ---
Betamethasone Waiting for prescribed medication from pharmacy at this time. Pharmacy called and states that they will bring the medication. Will administer when medication is here.
--- NOTE | 2019-03-29 19:06 | NUR ---
Patient care endorsed endorsed care to Maday rn, patient resting comfortably in bed. This rn spoke to Pharmacist Cheyenne regarding Betamethasone cream not received ye, he states he will send. Oncoming rn Maday to f/u on it and apply as ordered. Fall precs in place per protocol including call light within reach.
--- NOTE | 2019-03-29 19:15 | NUR ---
Opening Shift Note Assumed care of patient, awake and alert. No S/S of distress/SOB or pain. POC discussed and questions answered. Bed is locked in lowest position with side rails up x2 for safety. Call light is within reach and patient encouraged to call if needs anything. Will continue to round q1hr and prn.
[2019-03-29] MEDS: BETAMETHASONE DIPROP0.05% TOPICAL CREAM 15GM TOP SCH (20:21)
[2019-03-29] MEDS: ROPINIROLE HCL 1 MG PO SCH (21:26)
[2019-03-29 22:00] VITALS: BP 101/69
--- NOTE | 2019-03-30 01:44 | NUR ---
MEDICATION MERREM [id number] IS UNAVAILABLE AT THIS TIME. GLOBAL SEARCH WAS DONE FOR THIS MEDICATION, NO MEDICATION FOUND. WILL NOTIFY IN HOUSE PHARMACY.
[2019-03-30] MEDS: MEROPENEM 1GM IVPB 100 ML IV SCH ×2 (03:00→06:12)
[2019-03-30 05:00] VITALS: BP 125/78
--- NOTE | 2019-03-30 06:04 | NUR ---
PHARMACY NOTIFIED ABOUT MERREM, PHARMACIST STATED SHE WILL SEND MEDICATION TO UNIT VIA THE BULLET.
[2019-03-30] MEDS: traMADol HCL 50 MG TAB PO PRN ×2 (06:10→21:45)
--- NOTE | 2019-03-30 07:30 | NUR ---
Opening Shift Note RECEIVED REPORT FROM NOC RN. Assumed care of patient, awake and alert. No S/S of distress/SOB or pain. BED IN LOWEST, LOCKED POSITION WITH SIDERAILS UP x2 AND CALL LIGHT WITHIN REACH. Instructed on POC and to call for assist PRN, will continue to monitor for changes Q1hr and PRN.
[2019-03-30 09:00] VITALS: BP 115/72
[2019-03-30] MEDS: APIXABAN 2.5 MG TAB PO SCH ×2 (10:43→21:44)
[2019-03-30] MEDS: POTASSIUM CHL 20 Meq TABLET PO SCH (10:43)
[2019-03-30] MEDS: LEVOTHYROXINE SODIUM 25 MCG TAB PO SCH (10:44)
[2019-03-30] MEDS: ASPirin 81 mg TAB PO SCH (10:44)
[2019-03-30] MEDS: FAMOTIDINE 20 MG TAB PO SCH (10:44)
[2019-03-30] MEDS: BETAMETHASONE DIPROP0.05% TOPICAL CREAM 15GM TOP SCH (10:45)
[2019-03-30] MEDS: FUROSEMIDE 20 MG TAB PO SCH (10:45)
[2019-03-30] MEDS: SOTALOL HCL 80 MG TAB PO SCH (10:45)
--- NOTE | 2019-03-30 11:17 | NUR ---
NUTRITION ASSESSMENT NOTES Please refer to link notes of nutrition screen form filed under the intervention section of the plan of care for further details. Est. Needs: 1500 kcal to 2000 kcal (15-20 kcal/kgBW), 57 gms to 68 gms pro (1.0-1.2 gms/kgIBW: 57 kg). Will continue to monitor pertinent labs and reassess nutrient need prn Thank you. Addendum: 03/30/19 at [address] Amended: Links added.
[2019-03-30 13:00] VITALS: BP 122/71
[2019-03-30 16:59] VITALS: BP 113/70
[2019-03-30] MEDS: ROPINIROLE HCL 1 MG PO SCH (21:44)
[2019-03-30 22:00] VITALS: BP 92/57
[2019-03-31] MEDS: MEROPENEM 1GM IVPB 100 ML IV SCH ×2 (02:48→16:22)
[2019-03-31 05:00] VITALS: BP 123/61
[2019-03-31 08:00] VITALS: BP 95/59
[2019-03-31] MEDS: POTASSIUM CHL 20 Meq TABLET PO SCH (10:13)
[2019-03-31] MEDS: LEVOTHYROXINE SODIUM 25 MCG TAB PO SCH (10:13)
[2019-03-31] MEDS: APIXABAN 2.5 MG TAB PO SCH ×2 (10:13→21:41)
[2019-03-31] MEDS: FUROSEMIDE 20 MG TAB PO SCH (10:13)
[2019-03-31] MEDS: FAMOTIDINE 20 MG TAB PO SCH (10:14)
[2019-03-31] MEDS: SOTALOL HCL 80 MG TAB PO SCH (10:14)
[2019-03-31] MEDS: ASPirin 81 mg TAB PO SCH (10:14)
[2019-03-31] MEDS: BETAMETHASONE DIPROP0.05% TOPICAL CREAM 15GM TOP SCH (10:15)
[2019-03-31 12:48] VITALS: BP 117/78
[2019-03-31 17:00] VITALS: BP 107/57
--- NOTE | 2019-03-31 19:30 | NUR ---
Opening Shift Note Assumed care of patient, awake and alert. No S/S of distress/SOB or pain. Instructed on POC and to call for assist PRN, will continue to monitor for changes Q1hr and PRN.
[2019-03-31] MEDS: traMADol HCL 50 MG TAB PO PRN (20:12)
--- NOTE | 2019-03-31 21:03 | NUR ---
PATIENT STATED SHE IS NOT ITCHY AND WILL NOT NEED HER BETAMETHASONE CREAM TONIGHT Signed: 03/31/19 at 2306 by CRISTHIAN NAM <Co-Signature Required> Co-Signed: 03/31/19 at 2306 by ROSAMARIA ISSA RN RN
[2019-03-31] MEDS: ROPINIROLE HCL 1 MG PO SCH (21:42)
[2019-03-31 22:00] VITALS: BP 115/60
--- NOTE | 2019-04-01 02:45 | NUR ---
Received patient from FABIO Rodriges. Patient resting comfortably. No distress noted.
--- NOTE | 2019-04-01 02:47 | NUR ---
Endorsed patient to Sheeba MCCARTHY. Patient resting, no distress noted.
[2019-04-01] MEDS: MEROPENEM 1GM IVPB 100 ML IV SCH ×2 (02:51→15:14)
[2019-04-01 05:00] VITALS: BP 125/67
--- NOTE | 2019-04-01 06:57 | NUR ---
No change in status. Patient resting in bed no distress noted.
--- NOTE | 2019-04-01 07:00 | NUR ---
OPENING SHIFT NOTE ASSUMED CARE OF THE PATIENT FROM THE AGRICULTURAL REAL ESTATE AGENT RN. THE PATIENT IS A&OX4, NO SIGNS OR SYMPTOMS OF DISTRESS. EDUCATED THE PATIENT ON POC AND PATIENT VERBALIZED UNDERSTANDING. THE PATIENT'S CALL LIGHT IS WITHIN REACH AND BED IS IN THE LOWEST, LOCKED POSITION. WILL ROUND HOURLY AND CONTINUE TO MONITOR.
[2019-04-01 09:00] VITALS: BP 107/61
[2019-04-01] MEDS ORDERED: GABAPENTIN 100 MG CAP PO SCH (10:00)
[2019-04-01] MEDS: FUROSEMIDE 20 MG TAB PO SCH (10:13)
[2019-04-01] MEDS: LEVOTHYROXINE SODIUM 25 MCG TAB PO SCH (10:14)
[2019-04-01] MEDS: FAMOTIDINE 20 MG TAB PO SCH (10:14)
[2019-04-01] MEDS: POTASSIUM CHL 20 Meq TABLET PO SCH (10:15)
[2019-04-01] MEDS: APIXABAN 2.5 MG TAB PO SCH ×2 (10:15→22:02)
[2019-04-01] MEDS: SOTALOL HCL 80 MG TAB PO SCH (10:17)
[2019-04-01] MEDS: ASPirin 81 mg TAB PO SCH (10:17)
[2019-04-01] MEDS: BETAMETHASONE DIPROP0.05% TOPICAL CREAM 15GM TOP SCH (10:19)
[2019-04-01] MEDS: traMADol HCL 50 MG TAB PO PRN ×2 (11:47→23:26)
--- NOTE | 2019-04-01 12:00 | NUR ---
DR. STOCK ORDERS RECEIVED FOR ACCESS AND USE OF PORT-A-CATH.
[2019-04-01 13:00] VITALS: BP 111/68
[2019-04-01 16:33] VITALS: BP 103/59
--- NOTE | 2019-04-01 19:13 | NUR ---
Opening Shift Note Assumed care of patient, awake and alert x4. No S/S of distress/SOB or pain. Hook is in place and hung below bladder, it is draining yellow urine. Port-a-cath access to right upper chest, it is patent. Instructed on POC and to call for assist PRN. All questions and concerns answered, will continue to monitor for changes Q1hr and PRN.
[2019-04-01 22:00] VITALS: BP 127/53
[2019-04-01] MEDS: ROPINIROLE HCL 1 MG PO SCH (22:02)
[2019-04-02] MEDS: MEROPENEM 1GM IVPB 100 ML IV SCH ×2 (02:47→15:16)
[2019-04-02 05:00] VITALS: BP 125/66
[2019-04-02 08:00] VITALS: BP 130/71
[2019-04-02 09:29] VITALS: BP 130/71
[2019-04-02] MEDS: APIXABAN 2.5 MG TAB PO SCH ×2 (10:48→22:13)
[2019-04-02] MEDS: ASPirin 81 mg TAB PO SCH (10:48)
[2019-04-02] MEDS: SOTALOL HCL 80 MG TAB PO SCH (10:48)
[2019-04-02] MEDS: POTASSIUM CHL 20 Meq TABLET PO SCH (10:49)
[2019-04-02] MEDS: LEVOTHYROXINE SODIUM 25 MCG TAB PO SCH (10:49)
[2019-04-02] MEDS: FUROSEMIDE 20 MG TAB PO SCH (10:49)
[2019-04-02] MEDS: FAMOTIDINE 20 MG TAB PO SCH (10:49)
[2019-04-02] MEDS: BETAMETHASONE DIPROP0.05% TOPICAL CREAM 15GM TOP SCH (10:50)
--- NOTE | 2019-04-02 10:51 | NUR ---
DRESSING CHANGED ON PORT-A-CATH.
[2019-04-02 10:59] LABS: Basophils # (auto) 0 uL; Hemoglobin 7.5 g/dL (12.2-16.2); Lymphocytes # (auto) 1.3 uL; Monocytes # (auto) 0.9 uL
[2019-04-02 11:00] LABS: Basophils % (auto) 0.5 % (0.0-2.0); Eosinophils % (auto) 11.9 % (0.0-7.0); Hematocrit 22.5 % (36.0-46.0); Lymphocytes % (auto) 15.4 % (10.0-50.0); Mean Corpuscular Hemoglobin 25.2 pg (28.0-32.0); Mean Corpuscular Hgb Conc. 33.4 g/dL (32.0-36.0); Mean Corpuscular Volume 75.5 fL (80.0-100.0); Monocytes % (auto) 10.2 % (0.0-12.0); Neutrophils # (auto) 5.3 uL; Platelet Count (auto) 360 10^3/uL (140-450); Red Blood Cells 2.98 10^6/uL (4.0-5.20); Red Cell Distribution Width 15.6 % (11.8-14.3); White Blood Cell 8.6 10^3/uL (4.4-10.8)
--- NOTE | 2019-04-02 11:34 | NUR ---
OPENING SHIFT NOTE ASSUMED CARE OF THE PATIENT FROM THE HOT FRAME TENDER RN. THE PATIENT IS A&OX4, NO SIGNS OR SYMPTOMS OF DISTRESS. EDUCATED THE PATIENT ON POC AND PATIENT VERBALIZED UNDERSTANDING. EDUCATED THE PATIENT ON POC AND PATIENT VERBALIZED UNDERSTANDING. THE PATIENT'S CALL LIGHT IS WITHIN REACH AND BED IS IN THE LOWEST, LOCKED POSITION. WILL ROUND HOURLY AND CONTINUE TO MONITOR.
[2019-04-02 11:41] LABS: Potassium 3.9 mmol/L (3.5-5.1)
[2019-04-02 11:47] LABS: Albumin 2.4 g/dL (3.4-5.0); BUN/Creatinine Ratio 22.2; Bilirubin, Total 0.2 mg/dL (0.2-1.0); Calcium 8.6 mg/dL (8.5-10.1)
[2019-04-02 12:36] VITALS: BP 120/65
[2019-04-02 16:32] VITALS: BP 108/60
--- NOTE | 2019-04-02 19:20 | NUR ---
Opening Shift Note Assumed care of patient, awake and alert x4. No S/S of distress/SOB or pain. Instructed on POC and to call for assist PRN, will continue to monitor for changes Q1hr and PRN.
[2019-04-02 21:56] VITALS: BP 132/62
[2019-04-02] MEDS: traMADol HCL 50 MG TAB PO PRN (22:13)
[2019-04-02] MEDS: ROPINIROLE HCL 1 MG PO SCH (22:13)
[2019-04-03] MEDS: MEROPENEM 1GM IVPB 100 ML IV SCH ×2 (03:00→14:56)
--- NOTE | 2019-04-03 04:30 | NUR ---
Urinalysis sample collected and sent to lab via [facility] system.
[2019-04-03 04:49] LABS: Urine Bacteria FEW /hpf (None Seen); Urine Blood Negative /uL (Negative); Urine Mucus FEW (None Seen); Urine Specific Gravity 1.007 (1.001-1.035); Urine WBC 22 /hpf (0 - 5)
[2019-04-03 05:00] VITALS: BP 136/68
[2019-04-03 08:03] VITALS: BP 129/65
[2019-04-03 09:00] VITALS: BP 129/69
[2019-04-03] MEDS: FAMOTIDINE 20 MG TAB PO SCH (10:46)
[2019-04-03] MEDS: LEVOTHYROXINE SODIUM 25 MCG TAB PO SCH (10:46)
[2019-04-03] MEDS: POTASSIUM CHL 20 Meq TABLET PO SCH (10:46)
[2019-04-03] MEDS: ASPirin 81 mg TAB PO SCH (10:46)
[2019-04-03] MEDS: APIXABAN 2.5 MG TAB PO SCH (10:46)
[2019-04-03] MEDS: FUROSEMIDE 20 MG TAB PO SCH (10:47)
[2019-04-03] MEDS: SOTALOL HCL 80 MG TAB PO SCH (10:48)
[2019-04-03] MEDS: BETAMETHASONE DIPROP0.05% TOPICAL CREAM 15GM TOP SCH (10:51)
--- NOTE | 2019-04-03 11:54 | NUR ---
Endorsed care to Anjana Hernandez RN. Patient downgraded to Med-surg from Tele. Tele box returned.
[2019-04-03 13:00] VITALS: BP 119/62
--- NOTE | 2019-04-03 13:45 | NUR ---
Paged Dr. Cifuentes for discharge clarificartion orders. Addendum: 04/03/19 at 1436 by Anjana Hernandez RN second page for Awaiting call back.
[2019-04-03] MEDS: traMADol HCL 50 MG TAB PO PRN (14:56)
--- NOTE | 2019-04-03 16:25 | NUR ---
Discharge planning per consult, patient has orders to Resume home health with [facility]. Referral sent, placed a follow up call, spoke with Ayana, and was advised that they will accept this patient. Start of care will be within 24-48 hours of discharge. Addendum: 04/03/19 at 1627 by FELIPE CORRAL Amended: Links added.
--- NOTE | 2019-04-03 16:30 | NUR ---
Patient refuses for her Hook catheter to be discontinued for now.
[2019-04-03 16:45] VITALS: BP 119/62
--- NOTE | 2019-04-03 16:58 | NUR ---
Called patient's daughter , Tita to let her know patient is discharged. No answer. Unable to leave message. Will try again.
[2019-04-03 17:00] VITALS: BP 102/55
--- NOTE | 2019-04-03 19:06 | NUR ---
Discharge instructions given as ordered. Encourage to follow up with PMD as instructed. All questions and concerns addressed. Patient verbalized understanding. Home medications held in Pharmacy returned to patient. Hook catheter removed with catheter intact. Patient taken to vehicle via wheelchair with all personal belongings, accompanied by staff and family member. No distress noted at time of departure. Signed: 04/03/19 at 1908 by CRISTHIAN DIAZ <Co-Signature Required> Co-Signed: 04/03/19 at 1908 by Anjana Hernandez RN
--- NOTE | 2019-04-03 19:07 | NUR ---
Kary Cath Removal Johnson needle D/C'd after Heparin flush per protocol. Sterile occlusive dressing to site. Patient tolerated procedure well.
== END 2019-04-03 19:05 | disposition home health service (06) | DRG 871 ==
LOC: ER 13:30 → EDBD 13:30 → TELE 13:31 → TELE-EAST 18:34 → EAST 04-03 11:17
PROVIDERS: ADMIT Internal Medicine Cardiovascular Disease; ATTEND Internal Medicine Cardiovascular Disease
DX: A41.9 Sepsis, unspecified organism (principal); G93.41 Metabolic encephalopathy; N39.0 Urinary tract infection, site not specified; D50.9 Iron deficiency anemia, unspecified; E87.6 Hypokalemia; E66.9 Obesity, unspecified; N31.9 Neuromuscular dysfunction of bladder, unspecified; I50.9 Heart failure, unspecified; I11.0 Hypertensive heart disease with heart failure; Z88.5 Allergy status to narcotic agent; Z88.0 Allergy status to penicillin; Z88.2 Allergy status to sulfonamides; Z88.8 Allergy status to other drugs, medicaments and biological substances; Z68.37 Body mass index [BMI] 37.0-37.9, adult; E03.9 Hypothyroidism, unspecified; E11.9 Type 2 diabetes mellitus without complications; G47.30 Sleep apnea, unspecified; I48.91 Unspecified atrial fibrillation; Z79.01 Long term (current) use of anticoagulants; Z82.49 Family history of ischemic heart disease and other diseases of the circulatory system
CPT/HCPCS: 36415; 51702; 70450; 71045; 80053; 81001; 82962; 83605; 83735; 84484; 85025; 87040; 87077; 87086; 87088; 87186; 93005; G0378; J1642; J1956; J2185; J7060

== ENCOUNTER → 2019-06-06 | Outpatient (CLI) | payer MEDICARE, MEDICAID ==
[~2019-06-06] MED LIST changes: +ACETAMINOPHEN 500 MG TAB PO ONE; +AMIKACIN 500 MG/2 ML IV ONE; +AMIKACIN 500 MG/2 ML ONE; +APRE1TAB2 PO; +SOTA80TA PO
--- NOTE | 2019-06-06 11:00 | NUR ---
Kary Cath Insertion 20 gauge Kary Cath inserted using sterile technique in the upper chest with occlusive dressing over padilla needle. Patient tolerated procedure well. Ordered labs drawn and sent. See e-MAR for medications given during this visit.
[2019-06-06 11:40] VITALS: BP 149/80
--- NOTE | 2019-06-06 11:40 | NUR ---
CHF PT ARRIVED AT THE CHF CLINIC FROM BACK OFFICE FOR ABX THERAPY REOCCURING UTI , TOTAL LIFT SHEET USED PT NOT MOBILE AND INCONTINENT SON AT CHAIRSIDE
[2019-06-06 13:58] VITALS: BP 164/61
--- NOTE | 2019-06-06 13:58 | NUR ---
Discharge Instructions See e-MAR for any mediations given with this visit. Patient education given on disease process. Patient verbalized understanding. Previous labs reviewed. Patient discharged in stable condition with after care instructions and follow up appointment. PT PORTACATH SECURED PT AND PACKED WITH 500 UNITS OF HEPARIN PT TO RETURN NEXT 3 DAYS FOR ABX THERAPY MEDS AMIKACIN IV [id number] HEPARIN IVP
[2019-06-06 16:05] LABS: Basophils # (auto) 0.1 uL; Basophils % (auto) 0.6 % (0.0-2.0); Hemoglobin 8.3 g/dL (12.2-16.2); Lymphocytes # (auto) 1.9 uL; Red Cell Distribution Width 16.8 % (11.8-14.3)
[2019-06-06 16:07] LABS: Eosinophils # (auto) 0.3 uL; Eosinophils % (auto) 2.7 % (0.0-7.0); Hematocrit 26.8 % (36.0-46.0); Lymphocytes % (auto) 14.9 % (10.0-50.0); Mean Corpuscular Hemoglobin 21.2 pg (28.0-32.0); Mean Corpuscular Volume 68.5 fL (80.0-100.0); Monocytes # (auto) 1.1 uL; Monocytes % (auto) 8.4 % (0.0-12.0); Neutrophils # (auto) 9.3 uL; Neutrophils % (auto) 73.4 % (37.0-80.0); Platelet Count (auto) 505 10^3/uL (140-450); Red Blood Cells 3.91 10^6/uL (4.0-5.20); White Blood Cell 12.6 10^3/uL (4.4-10.8)
[2019-06-06 16:32] LABS: BUN/Creatinine Ratio 20.1; Calcium 9.3 mg/dL (8.5-10.1); Magnesium 2.2 mg/dL (1.6-2.6); Potassium 3.6 mmol/L (3.5-5.1)
== END | disposition home or self-care (01) ==
LOC: CHF HDHVI 11:23
PROVIDERS: ATTEND Internal Medicine Cardiovascular Disease
DX: N39.0 Urinary tract infection, site not specified (principal); D64.9 Anemia, unspecified; E83.40 Disorders of magnesium metabolism, unspecified; E11.9 Type 2 diabetes mellitus without complications
CPT/HCPCS: 36415; 80048; 83735; 85025; 96365; G0463; J0278; J1642

== ENCOUNTER → 2019-06-07 | Outpatient (CLI) | payer MEDICARE, MEDICAID ==
[2019-06-07 10:53] VITALS: BP 148/75
--- NOTE | 2019-06-07 11:15 | NUR ---
Kary Cath Insertion 20 gauge Kary Cath STILL PRESENT in the upper chest with occlusive dressing over padilla needle. PT TO RETURN TOMORROW FOR ONE MORE DAY OF AMIKACIN
--- NOTE | 2019-06-07 12:08 | NUR ---
Kary Cath Removal Johnson NEEDLE STAYING IN PLACE FLUSHED PER Heparin flush per protocol. See e-MAR for medications given during this visit. Sterile occlusive dressing to site. Patient tolerated procedure well Site benign post infusion.
[2019-06-07 12:11] VITALS: BP 145/70
--- NOTE | 2019-06-07 12:11 | NUR ---
Discharge Instructions See e-MAR for any mediations given with this visit. Patient education given on disease process. Patient verbalized understanding. Previous labs reviewed. Patient discharged in stable condition with after care instructions and follow up appointment. MEDICATIONS AMIKACIN IV [id number] TYLENOL PO HEPARIN IVP
== END | disposition home or self-care (01) ==
LOC: CHF HDHVI 10:48
PROVIDERS: ATTEND Internal Medicine Cardiovascular Disease
DX: N39.0 Urinary tract infection, site not specified (principal); R51 Headache; I25.10 Atherosclerotic heart disease of native coronary artery without angina pectoris; I48.91 Unspecified atrial fibrillation; I10 Essential (primary) hypertension; E11.9 Type 2 diabetes mellitus without complications
CPT/HCPCS: 96365; G0463; J0278; J1642

== ENCOUNTER → 2019-06-08 | Outpatient (CLI) | payer MEDICARE, MEDICAID ==
[~2019-06-08] MED LIST changes: -ACETAMINOPHEN 500 MG TAB PO ONE; -AMIKACIN 500 MG/2 ML IV ONE; +AMIKACIN IV ONE; +D5W 5% IV ONE
[2019-06-08 11:19] VITALS: BP 143/82
[2019-06-08 12:31] VITALS: BP 136/87
--- NOTE | 2019-06-08 12:31 | NUR ---
CHF CLINIC Discharge Instructions See e-MAR for any mediations given with this visit. Patient education given on disease process. Patient verbalized understanding. Previous labs reviewed. Patient discharged in stable condition with after care instructions and follow up appointment. NOTE AMIKACIN IV [id number] ADMIN BY RENA MCCARTHY HEPARIN ADMIN BY RENA DESIR UPDATED ON PATIENT SYMPTOMS, PRESCRIPTION FOR ZOFRAN PO SENT TO PT PHARMACY.
== END | disposition home or self-care (01) ==
LOC: CHF HDHVI 11:23
PROVIDERS: ATTEND Internal Medicine Cardiovascular Disease
DX: N39.0 Urinary tract infection, site not specified (principal); I25.10 Atherosclerotic heart disease of native coronary artery without angina pectoris; I10 Essential (primary) hypertension
CPT/HCPCS: 96365; G0463; J0278; J1642

== ENCOUNTER → 2019-07-03 | Outpatient (CLI) | payer MEDICARE, OTHER, MEDICAID ==
[~2019-07-03] MED LIST changes: -AMIKACIN 500 MG/2 ML ONE; -AMIKACIN IV ONE; -D5W 5% IV ONE
[2019-07-03 13:10] VITALS: BP 180/100
[2019-07-03 13:30] VITALS: BP 162/92
[2019-07-03 16:15] LABS: Basophils # (auto) 0.1 uL; Eosinophils # (auto) 0.3 uL; Hemoglobin 9.9 g/dL (12.2-16.2); Monocytes # (auto) 1.3 uL; Neutrophils # (auto) 7.5 uL
[2019-07-03 16:17] LABS: Basophils % (auto) 0.6 % (0.0-2.0); Eosinophils % (auto) 2.7 % (0.0-7.0); Hematocrit 31.9 % (36.0-46.0); Mean Corpuscular Hemoglobin 22.8 pg (28.0-32.0); Mean Corpuscular Hgb Conc. 31.1 g/dL (32.0-36.0); Mean Corpuscular Volume 73.4 fL (80.0-100.0); Monocytes % (auto) 11.5 % (0.0-12.0); Neutrophils % (auto) 67.2 % (37.0-80.0); Platelet Count (auto) 448 10^3/uL (140-450); Red Blood Cells 4.35 10^6/uL (4.0-5.20); White Blood Cell 11.1 10^3/uL (4.4-10.8)
[2019-07-03 16:18] LABS: Red Cell Distribution Width 24.5 % (11.8-14.3)
[2019-07-03 16:26] LABS: Potassium 3.5 mmol/L (3.5-5.1)
[2019-07-03 16:34] LABS: Albumin 2.8 g/dL (3.4-5.0); BUN/Creatinine Ratio 28.7; Bilirubin, Total 0.2 mg/dL (0.2-1.0); Calcium 9.2 mg/dL (8.5-10.1); Total Protein 7.3 g/dL (6.4-8.2)
== END | disposition home or self-care (01) ==
LOC: LAB 12:58
PROVIDERS: ATTEND Internal Medicine Cardiovascular Disease
DX: D64.9 Anemia, unspecified (principal); I10 Essential (primary) hypertension; I25.10 Atherosclerotic heart disease of native coronary artery without angina pectoris
CPT/HCPCS: 36415; 80053; 85025; 96374; G0463; J1642

== ENCOUNTER → 2019-08-28 | Outpatient (CLI) | payer MEDICARE, OTHER, MEDICAID ==
[2019-08-28 11:30] VITALS: BP 155/83
[2019-08-28 11:56] VITALS: BP 154/70
[2019-08-28 15:53] LABS: Hemoglobin 8.7 g/dL (12.2-16.2); Mean Corpuscular Volume 71.5 fL (80.0-100.0); Monocytes # (auto) 1.4 10 ^3/uL (0-1.3)
[2019-08-28 15:55] LABS: Basophils # (auto) 0.1 10 ^3/uL (0-0.2); Basophils % (auto) 0.5 % (0.0-2.0); Eosinophils # (auto) 0.3 10 ^3/uL (0-0.8); Hematocrit 27.1 % (36.0-46.0); Lymphocytes # (auto) 2.1 10 ^3/uL (0.4-5.4); Lymphocytes % (auto) 15.9 % (10.0-50.0); Mean Corpuscular Hemoglobin 22.8 pg (28.0-32.0); Mean Corpuscular Hgb Conc. 31.9 g/dL (32.0-36.0); Monocytes % (auto) 10.3 % (0.0-12.0); Neutrophils # (auto) 9.4 10 ^3/uL (1.6-8.6); Neutrophils % (auto) 71.3 % (37.0-80.0); Platelet Count (auto) 435 10^3/uL (140-450); Red Blood Cells 3.79 10^6/uL (4.0-5.20); Red Cell Distribution Width 20.1 % (11.8-14.3); White Blood Cell 13.2 10^3/uL (4.4-10.8)
[2019-08-28 16:01] LABS: BUN/Creatinine Ratio 32.3; Calcium 9.3 mg/dL (8.5-10.1); Potassium 3.9 mmol/L (3.5-5.1)
== END | disposition home or self-care (01) ==
LOC: LAB 11:08
PROVIDERS: ATTEND Internal Medicine Cardiovascular Disease
DX: D64.9 Anemia, unspecified (principal); I10 Essential (primary) hypertension; I50.9 Heart failure, unspecified; J44.9 Chronic obstructive pulmonary disease, unspecified; J98.8 Other specified respiratory disorders; Z85.118 Personal history of other malignant neoplasm of bronchus and lung; Z98.890 Other specified postprocedural states
CPT/HCPCS: 36415; 80048; 85025; 96374; G0463; J1642

== ENCOUNTER → 2019-10-04 | Outpatient (CLI) | payer MEDICARE, OTHER, MEDICAID ==
[~2019-10-04] VITALS: Ht 170.2 cm; Wt 108.9 kg
[~2019-10-04] MED LIST changes: +ADENOSINE 90 MG/30 ML INJ IV ONE; +ADENOSINE 91 MG in GIVE UN-DILUTED 0 ML IV ONE; +ONDANSETRON HCL 4 MG/2 ML VIAL IV ONE; +ONDANSETRON HCL 4 MG/2 ML VIAL ONE
--- NOTE | 2019-10-04 08:38 | NUR ---
Kary Cath Insertion 20 gauge Kary Cath inserted using sterile technique in the R upper chest with occlusive dressing over padilla needle. Patient tolerated procedure well. See e-MAR for medications given during this visit. NOTE INSERTED BY JELLY MCCARTHY
--- NOTE | 2019-10-04 11:15 | NUR ---
Kary Cath Removal Johnson needle D/C'd after Heparin flush per protocol. See e-MAR for medications given during this visit. Sterile occlusive dressing to site. Patient tolerated procedure well. Site benign post infusion.
== END | disposition home or self-care (01) ==
LOC: Rad HDHVI 08:18
PROVIDERS: ATTEND Internal Medicine Cardiovascular Disease
DX: I10 Essential (primary) hypertension (principal); R00.2 Palpitations; R06.02 Shortness of breath; Z82.49 Family history of ischemic heart disease and other diseases of the circulatory system
CPT/HCPCS: 78452; 93005; 93306; 96374; 96375; A9500; J0153; J1642; J2405

== ENCOUNTER → 2020-01-30 | Emergency (ER) | payer MEDICARE, OTHER, MEDICAID ==
[~2020-01-30] VITALS: Ht 170.2 cm; Wt 99.8 kg
[~2020-01-30] MED LIST changes: -ADENOSINE 90 MG/30 ML INJ IV ONE; -ADENOSINE 91 MG in GIVE UN-DILUTED 0 ML IV ONE; -ONDANSETRON HCL 4 MG/2 ML VIAL IV ONE; -ONDANSETRON HCL 4 MG/2 ML VIAL ONE; +traMADol HCL 50 MG TAB PO ONE
[2020-01-30 13:14] VITALS: BP 112/66
== END | disposition home or self-care (01) ==
LOC: ER 10:15
DX: L03.313 Cellulitis of chest wall (principal); I13.0 Hypertensive heart and chronic kidney disease with heart failure and stage 1 through stage 4 chronic kidney disease, or unspecified chronic kidney disease; E11.22 Type 2 diabetes mellitus with diabetic chronic kidney disease; I50.9 Heart failure, unspecified; N18.9 Chronic kidney disease, unspecified; Z79.899 Other long term (current) drug therapy; Z88.0 Allergy status to penicillin; Z88.2 Allergy status to sulfonamides; Z88.5 Allergy status to narcotic agent
CPT/HCPCS: 71045

== ENCOUNTER 2020-02-05 15:57 | Inpatient (IN) | payer MEDICARE, OTHER, MEDICAID ==
[~2020-02-05] VITALS: Ht 170.2 cm; Wt 102.2 kg
[~2020-02-05 15:57] MED LIST changes: -traMADol HCL 50 MG TAB PO ONE
--- NOTE | 2020-02-05 16:43 | NUR ---
Direct Admit Note MARIANTANESHA admitted to Telemetry/MS unit as a direct admit per MD order. Patient oriented to Galdino diallo RN, unit, room, bed, and unit policies regarding patient care and visiting hours. Patient placed on bedside oxygen, weighed by bedscale and encouraged to call if they need something. All questions and concerns addressed, patient verbalized understanding. MD notified of patients arrival and admit orders received.
[2020-02-05] MEDS ORDERED: ESOM40CA39 PO (17:10)
[2020-02-05] MEDS ORDERED: LEVO-28 PO (17:10)
[2020-02-05] MEDS ORDERED: ONDA-144 PO (17:10)
[2020-02-05] MEDS ORDERED: ASPI-498 PO (17:10)
[2020-02-05] MEDS ORDERED: CARB25TA75 PO (17:10)
[2020-02-05] MEDS ORDERED: FLUT1SPR5 (17:10)
[2020-02-05] MEDS ORDERED: POTA-180 PO (17:10)
[2020-02-05] MEDS ORDERED: ALBU0.084 NEB (17:12)
[2020-02-05] MEDS ORDERED: DIP005TP TOP (17:13)
[2020-02-05] MEDS ORDERED: CLOTLOT EX (17:14)
[2020-02-05] MEDS ORDERED: ACET-1304 PO (17:17)
[2020-02-05 17:33] VITALS: BP_SYST 112; BP_SYST 160; BP_DIAS 75; BP_DIAS 83
[2020-02-05] MEDS ORDERED: FLUTICASONE PROP NASAL SPR 0.05 % (50MCG) 16GM EACHNOSTRI PRN (18:00)
[2020-02-05] MEDS ORDERED: ALBUTEROL SULF 2.5 MG/0.5ML(0.5%) NEB SOLN NEB PRN (18:00)
[2020-02-05] MEDS ORDERED: traMADol HCL 50 MG TAB PO PRN (18:00)
[2020-02-05] MEDS ORDERED: ONDANSETRON HCL 4 MG/2 ML VIAL IV PRN (18:00)
--- NOTE | 2020-02-05 18:03 | NUR ---
Midline Placement: Patient educated on need for midline placement. All risks and benefits explained and all questions and concerns addresses prior to procedure. 18g/10cm midline inserted via LEFT BASILIC vein using Ultrasound. Sterile technique utilized. Blood return obtained from SINGLE lumen and flushed easily with NS using proper technique. Midline secured with saline lock; biodisc and occlusive dressing applied. Primary RN notified. Midline lot # [id number].
[2020-02-05 18:29] LABS: Basophils # (auto) 0.1 10 ^3/uL (0-0.2); Basophils % (auto) 1.2 % (0.0-2.0); Eosinophils # (auto) 0.3 10 ^3/uL (0-0.8); Monocytes # (auto) 1.1 10 ^3/uL (0-1.3)
[2020-02-05 18:30] LABS: Eosinophils % (auto) 2.8 % (0.0-7.0); Hematocrit 15.9 % (36.0-46.0); Lymphocytes # (auto) 2.9 10 ^3/uL (0.4-5.4); Mean Corpuscular Hemoglobin 16.4 pg (28.0-32.0); Mean Corpuscular Hgb Conc. 28.8 g/dL (32.0-36.0); Monocytes % (auto) 9.2 % (0.0-12.0); Neutrophils # (auto) 7.1 10 ^3/uL (1.6-8.6); Neutrophils % (auto) 61.8 % (37.0-80.0); Nucleated Red Blood Cells % 0.1 %; Platelet Count (auto) 598 10^3/uL (140-450); Red Blood Cells 2.79 10^6/uL (4.0-5.20); Red Cell Distribution Width 18.5 % (11.8-14.3); White Blood Cell 11.5 10^3/uL (4.4-10.8)
[2020-02-05 18:45] LABS: Hemoglobin 4.6 g/dL (12.2-16.2)
[2020-02-05] MEDS ORDERED: VANCOMYCIN 1GM/250ML 250 ML IV SCH (18:45)
[2020-02-05 18:46] LABS: BUN/Creatinine Ratio 20.8; Calcium 9.1 mg/dL (8.5-10.1); Potassium 3.6 mmol/L (3.5-5.1)
--- NOTE | 2020-02-05 19:15 | NUR ---
Contacted Dr. Cifuentes by phone re critical value hgb 4.6 and gave new orders.
--- NOTE | 2020-02-05 20:00 | NUR ---
Opening Shift Note Assumed care of patient. Awake, alert and oriented x4. No S/S of distress/SOB or pain. Pt is sitting up in bed, on room air with even and unlabored respirations. Wound to right chest is C/D/I with dressing in place. Instructed on POC and to call for assist PRN. Bed locked, in lowest position, call light within reach, side rails up x2. Will continue to monitor for changes Q1hr and PRN.
[2020-02-05] MEDS: levoFLOXacin 500MG 100 ML IV SCH (21:02)
[2020-02-05] MEDS: ROPINIROLE 1 MG PO SCH (21:54)
[2020-02-05 22:00] VITALS: BP 122/65
[2020-02-05] MEDS: CARBIDOPA W LEVODOPA 10/100mg TABLET PO SCH (23:16)
[2020-02-05] MEDS: BETAMETHASONE DIPROP0.05% TOPICAL CREAM 15GM TOP SCH (23:17)
[2020-02-06] VITALS (19 sets, daily range): BP systolic 129–159; BP diastolic 45–91
--- NOTE | 2020-02-06 00:33 | NUR ---
Respiratory note: PT SEEN AND ASSESSED FOR PRN MED NEB TX AT 0033. TX IS NOT INDICATED AT THIS TIME TIME. PT DISPLAYING NO SIGNS OF RESPIRATORY DISTRESS. HR 67 RR 18 SP02 96% ON ROOM AIR.
--- NOTE | 2020-02-06 01:05 | NUR ---
Turned pt Placed pillows under pt on the right side. Will continue to turn Q2hrs
[2020-02-06] MEDS: LEVOTHYROXINE SODIUM 25 MCG TAB PO SCH (06:17)
--- NOTE | 2020-02-06 07:30 | NUR ---
Opening Shift Note Assumed care of patient, awake and alert. No S/S of distress/SOB or pain noted. Bed locked on low position, side rails up x2, bed alarms on at all times, call cardenas within reach, instructed on POC and nursing routine,call light within reach,patient reminded instructed to call for assistance,verbalized understanding.
--- NOTE | 2020-02-06 09:05 | NUR ---
Attempted to draw blood from mid line,unable to draw blood
--- NOTE | 2020-02-06 09:30 | NUR ---
ARACELI PICC LINE RN INFORMED OF UNABLE TO DRAW BLOOD FROM MID LINE,STATED WILL BE HERE TO ASSESSED
[2020-02-06 10:20] LABS: Basophils # (auto) 0.1 10 ^3/uL (0-0.2)
[2020-02-06 10:22] LABS: Basophils % (auto) 0.8 % (0.0-2.0); Eosinophils # (auto) 0.3 10 ^3/uL (0-0.8); Eosinophils % (auto) 3.1 % (0.0-7.0); Hematocrit 20.9 % (36.0-46.0); Lymphocytes % (auto) 19.4 % (10.0-50.0); Mean Corpuscular Hemoglobin 21.1 pg (28.0-32.0); Mean Corpuscular Hgb Conc. 32.3 g/dL (32.0-36.0); Mean Corpuscular Volume 65.5 fL (80.0-100.0); Monocytes % (auto) 9.6 % (0.0-12.0); Neutrophils % (auto) 67.1 % (37.0-80.0); Nucleated Red Blood Cells % 0.1 %; Platelet Count (auto) 492 10^3/uL (140-450); White Blood Cell 10.4 10^3/uL (4.4-10.8)
[2020-02-06 10:23] LABS: Red Cell Distribution Width 30.3 % (11.8-14.3)
[2020-02-06 10:32] LABS: Hemoglobin 6.8 g/dL (12.2-16.2)
[2020-02-06 10:33] LABS: Calcium 8.8 mg/dL (8.5-10.1); Potassium 3.4 mmol/L (3.5-5.1)
[2020-02-06 10:35] LABS: BUN/Creatinine Ratio 20.8
--- NOTE | 2020-02-06 10:35 | NUR ---
THIS RN NOTIFIED PRIMARY RN, FREDDIE, THAT THE PATIENTS CRITICAL LAB VALUE FOR HGB IS 6.8. RN VERBALIZED UNDERSTANDING.
--- NOTE | 2020-02-06 11:00 | NUR ---
WOUND CARE NOTE: WOUND CONSULT ORDERED FOR PATIENT WITH INFECTED PORT A CATH TO CHEST. THERE IS A SURGICAL CONSULT FOR REMOVAL AND NEW PLACEMENT OF PORT A CATH IN PLACE, PENDING. THIS IS A SURGICAL CASE, NO WOUND CARE NEEDED AT THIS TIME. DID PLACE SKIN/WOUND CARE PLAN FOR LOW HECTOR SCORE 13. RECOMMEND: FREQUENT TURN SCHEDULE Q 2 HOURS, PRN CONDITION PERMITS, WITH PRESSURE REDISTRIBUTION USING PILLOWS/WEDGES, SKIN/WOUND CARE PLAN, PRN DRESSING TO CHEST WOUND UNTIL SURGERY.
[2020-02-06] MEDS ORDERED: VANCOMYCIN PER PHARMACY 0 MG IV SCH (11:15)
[2020-02-06] MEDS: BETAMETHASONE DIPROP0.05% TOPICAL CREAM 15GM TOP SCH ×2 (11:30→22:09)
[2020-02-06] MEDS: POTASSIUM CHL 20 Meq TABLET PO SCH (11:31)
[2020-02-06] MEDS: APREMILAST 30 MG PO SCH (11:31)
[2020-02-06] MEDS: PANTOPRAZOLE 40 MG TAB PO SCH (11:32)
[2020-02-06] MEDS: ASPirin-EC 81 mg tab PO SCH (11:32)
[2020-02-06] MEDS: SOTALOL HCL 80 MG TAB PO SCH (11:33)
--- NOTE | 2020-02-06 12:45 | NUR ---
PAGED DR. STOCK
--- NOTE | 2020-02-06 12:50 | NUR ---
DR. STOCK CALLED BACK,INFORMED OF REPEAT CBC RESULT,Hgb 6.8/Hct 20.9,RECEIVED TELEPHONE ORDER TO TRANSFUSE 2 UNITS OF PRBC, see orders written.
--- NOTE | 2020-02-06 13:40 | NUR ---
SALVATORE HERE TO SEE AND ASSESSED MID LINE ,STATED OK TO USE
--- NOTE | 2020-02-06 14:05 | NUR ---
MITCH Angel CHARGE NURSE INFORMED RESULT FOR POSITIVE MRSA NARES
--- NOTE | 2020-02-06 16:11 | NUR ---
DR. STOCK INFORMED OF MRSA NARES RESULT RECEIVED ORDER FOR BACTROBAN,ALSO INFORMED PER PATIENT REQUEST TO DECREASE DOSAGE OF ULTRAM TO 25 MG. RECEIVED ORDERS
--- NOTE | 2020-02-06 16:15 | NUR ---
PRE TRANSFUSION VITAL SIGNS DONE,SEE TRANSFUSION RECORD
--- NOTE | 2020-02-06 16:32 | NUR ---
TRANSFUSION STARTED AT 75CC/HR
--- NOTE | 2020-02-06 16:32 | NUR ---
#1 UNIT OF PRBC UNIT #[id number] STARTED, SEE TRANSFUSION RECORD,PATIENT INSTRUCTED TO INFORM AND REPORT TO RN ANY TRANSFUSION REACTION NOTED LIKE CHILLS,FEVER,HIVES,ITCHING OR BACK PAIN,VERBALIZED UNDERSTANDING.
--- NOTE | 2020-02-06 17:32 | NUR ---
TRANSFUSION RATE INCREASE TO 100CC/HR
[2020-02-06] MEDS: traMADol HCL 50 MG TAB PO PRN (17:47)
--- NOTE | 2020-02-06 18:53 | NUR ---
BLOOD TRANSFUSION IN PROGRESS TOLERATING WELL
--- NOTE | 2020-02-06 19:22 | NUR ---
Status unchanged,no distress,no discomfort, report given to incoming NOC shift RN
--- NOTE | 2020-02-06 20:33 | NUR ---
STARTED BLOOD TRANSFUSION
[2020-02-06] MEDS: CARBIDOPA W LEVODOPA 10/100mg TABLET PO SCH (22:05)
[2020-02-06] MEDS: MUPIROCIN 2% OINT 15gm or 22gm EACHNOSTRI SCH (22:16)
[2020-02-06] MEDS: ROPINIROLE 1 MG PO SCH (22:35)
--- NOTE | 2020-02-06 22:56 | NUR ---
Respiratory note: PT SEEN AND ASSESSED FOR PRN MED NEB TX AT 2256. TX IS NOT INDICATED AT THIS TIME TIME. PT DISPLAYING NO SIGNS OF RESPIRATORY DISTRESS. HR 74 RR 18 SP02 99% ON ROOM AIR.
--- NOTE | 2020-02-06 22:56 | NUR ---
BLOOD TRANSFUSION FINISHED PT TOLERATING WELL
[2020-02-06] MEDS: VANCOMYCIN 1GM/250ML 250 ML IV SCH (23:03)
--- NOTE | 2020-02-06 23:20 | NUR ---
END SHIFT NOTES ENDORSE CARE TO PLANT CONTROLLER NURSE SANTIAGO RN PT IS A0X4 , NO S/S OF DISTRESS OR SOB
--- NOTE | 2020-02-07 | NUR ---
PATIENT STABLE AT THIS TIME. PATIENT RESTING COMFORTABLY. PATIENT ALREADY CHANGED AFTER VOIDING. PATIENT SHOWING NO SIGN OF DISTRESS, SHORTNESS OF BREATH, AND PATIENT DENIES ANY PAIN AT THIS TIME. WILL CONTINUE TO MONITOR AT THIS TIME.
[2020-02-07] MEDS: levoFLOXacin 500MG 100 ML IV SCH ×2 (00:04→20:14)
[2020-02-07 04:42] VITALS: BP 150/62
--- NOTE | 2020-02-07 06:40 | NUR ---
PATIENT STATES THAT THEY DO NOT WISH TO BE CHANGED. REQUESTED TO CHANGE LINENS OF PATIENT. PATIENT STATED THAT THEY DID NOT VOID AND DO NOT WANT TO BE CHANGED. PATIENT INFORMED OF NECESSITY OF CHANGING LINENS AND HAVING CLEAN SHEETS. PATIENT VERBALIZED UNDERSTANDING BUT CONTINUED TO REFUSE. PATIENT ALERT AND ORIENTED AND FULLY AWARE OF CHOICES. WILL CONTINUE TO MONITOR.
[2020-02-07] MEDS: LEVOTHYROXINE SODIUM 25 MCG TAB PO SCH (06:41)
--- NOTE | 2020-02-07 07:43 | NUR ---
Opening Shift Note Assumed care of patient, awake and alert. No S/S of distress/SOB or pain. Instructed on POC and to call for assist PRN, will continue to monitor for changes Q1hr and PRN. Bed locked in lowest position with two side rails up and call light in reach.
[2020-02-07 08:00] VITALS: BP 152/68
[2020-02-07 09:00] VITALS: BP 152/68
[2020-02-07] MEDS: PANTOPRAZOLE 40 MG TAB PO SCH (09:56)
[2020-02-07] MEDS: ASPirin-EC 81 mg tab PO SCH (09:56)
[2020-02-07] MEDS: POTASSIUM CHL 20 Meq TABLET PO SCH (09:57)
[2020-02-07] MEDS: MUPIROCIN 2% OINT 15gm or 22gm EACHNOSTRI SCH ×2 (09:57→22:10)
[2020-02-07] MEDS: SOTALOL HCL 80 MG TAB PO SCH (09:57)
[2020-02-07] MEDS: APREMILAST 30 MG PO SCH (09:57)
[2020-02-07] MEDS: BETAMETHASONE DIPROP0.05% TOPICAL CREAM 15GM TOP SCH ×2 (09:58→22:10)
[2020-02-07 13:00] VITALS: BP 154/59
[2020-02-07 15:53] LABS: Hemoglobin 8.6 g/dL (12.2-16.2)
[2020-02-07 15:57] LABS: Hematocrit 28.8 % (36.0-46.0)
[2020-02-07 17:00] VITALS: BP 153/74
--- NOTE | 2020-02-07 18:40 | NUR ---
Respiratory note: ASSESSMENT FOR PRN MED NEB TX. PT HR 71, SPO2 96% ON ROOM AIR, RR 20, BS DIMINISHED. PT IN NO RESPIRATORY DISTRESS, MED NEB TX NOT INDICATED AT THIS TIME. PT AWARE TO HAVE RT PAGED IF NEEDED, WILL CONTINUE TO MONITOR.
--- NOTE | 2020-02-07 19:15 | NUR ---
Opening Shift Note Assumed care of patient, awake and alert. No S/S of distress/SOB or pain. Instructed on POC and to call for assist PRN, will continue to monitor for changes Q1hr and PRN.
[2020-02-07] MEDS: traMADol HCL 50 MG TAB PO PRN (20:14)
[2020-02-07 22:00] VITALS: BP 155/70
--- NOTE | 2020-02-07 22:00 | NUR ---
turn patient to right side.
[2020-02-07] MEDS: VANCOMYCIN 1GM/250ML 250 ML IV SCH (22:08)
[2020-02-07] MEDS: ROPINIROLE 1 MG PO SCH (22:09)
[2020-02-07] MEDS: CARBIDOPA W LEVODOPA 10/100mg TABLET PO SCH (22:10)
--- NOTE | 2020-02-07 23:15 | NUR ---
Patient refused to be changed. Patient stated she will just sleep.
--- NOTE | 2020-02-08 04:45 | NUR ---
Changed patient's diaper. patient tolerated.
--- NOTE | 2020-02-08 05:22 | NUR ---
turn patient to left side.
[2020-02-08 05:30] VITALS: BP 142/71
[2020-02-08] MEDS: LEVOTHYROXINE SODIUM 25 MCG TAB PO SCH (06:22)
--- NOTE | 2020-02-08 06:59 | NUR ---
Closing Shift report PAtient resting in bed. No complains, No SOB and distress noted. All needs met.
[2020-02-08 09:00] VITALS: BP 161/72
--- NOTE | 2020-02-08 10:38 | NUR ---
assessment Patient is a 74 year old female who is alert and oriented. Prior to admission patient lived home with family and functioned with assistance. Per patients daughter Mona she will return home to her prior living arrangements post discharge and she will transport her home. Mona informed me she has a van for transport patient. Patients PCP is Dr Cifunetes. Patient has an [facility] caregiver who is her daughter Mona [phone]. Patient has a hospital bed, richie lift, and wheelchair for home use. Patient is on service with [facility]. Patient wants to resume with [facility] on discharge for PT, safety and vitals. Patient will need a resumption order on discharge for home health. I will continue to monitor and follow up as appropriate. I informed Mona she has a right to speak to a manager social services regarding all care. I informed Mona she has a right to participate in any and all discharge planning. Patient has a POA and advanced directive. Patients rui Paz is her POA. Mona verbalized understanding and agreed to discharge plan home. Addendum: 02/08/20 at 1041 by Blank GOMEZ Amended: Links added.
--- NOTE | 2020-02-08 10:56 | NUR ---
Respiratory note: PT ASSESSED FOR PRN MN TX. HR 71, RR 18, POX 95% ON 2L NC, BS ARE CLR. NO SOB OR DISTRESS NOTED AT THIS TIME. PT WAS NOTIFY TO HAVE RT PAGED FOR MN TX.
[2020-02-08] MEDS: ASPirin-EC 81 mg tab PO SCH (11:20)
[2020-02-08] MEDS: POTASSIUM CHL 20 Meq TABLET PO SCH (11:20)
[2020-02-08] MEDS: APREMILAST 30 MG PO SCH (11:20)
[2020-02-08] MEDS: MUPIROCIN 2% OINT 15gm or 22gm EACHNOSTRI SCH ×2 (11:20→22:07)
[2020-02-08] MEDS: PANTOPRAZOLE 40 MG TAB PO SCH (11:21)
[2020-02-08] MEDS: BETAMETHASONE DIPROP0.05% TOPICAL CREAM 15GM TOP SCH ×2 (11:21→22:07)
[2020-02-08] MEDS: SOTALOL HCL 80 MG TAB PO SCH (11:21)
[2020-02-08 13:00] VITALS: BP 139/64
--- NOTE | 2020-02-08 15:21 | NUR ---
Neal JACOBS AT BEDSIDE TO ASSES PATIENT. Neal ASSESSED PORT-A-CATH SITE. INSTRUCTED TO PREPARE PATIENT FOR PRE-OP. ASKED M.Hakan IF HE WANTED IN HOUSE OR RAPID. PER Deondre RAPID SWAB IS ENOUGH.
[2020-02-08 17:00] VITALS: BP 155/80
[2020-02-08 20:04] VITALS: BP 155/80
[2020-02-08] MEDS: levoFLOXacin 500MG 100 ML IV SCH (20:42)
[2020-02-08] MEDS: traMADol HCL 50 MG TAB PO PRN (20:43)
[2020-02-08 21:42] VITALS: BP 154/67
[2020-02-08] MEDS: LACTULOSE 20Gm/30ML SOLN PO SCH (22:00)
[2020-02-08] MEDS: VANCOMYCIN 1GM/250ML 250 ML IV SCH (22:07)
[2020-02-08] MEDS: CARBIDOPA W LEVODOPA 10/100mg TABLET PO SCH (22:07)
[2020-02-08] MEDS: ROPINIROLE 1 MG PO SCH (22:07)
--- NOTE | 2020-02-08 22:38 | NUR ---
Respiratory note: ASSESSED PT FOR PRN MED NEB AT THIS TIME, PT DENIES SOB AT THIS TIME, NO RESP DISTRESS NOTED, NO TX INDICATED, PULSE OX 94% ON RA, HR 91, RR 18, BILATERAL BS CLEAR
[2020-02-08 22:43] LABS: INR 1.02 (0.9-1.15); Partial Thromboplastin Time 27.1 sec (23.0-31.2)
--- NOTE | 2020-02-08 23:09 | NUR ---
obtained consent for port removal signed by patient. Informed patient NPO after midnight and protocols pre procedure. PAtient agreed and verbalized understanding.
[2020-02-09 05:00] VITALS: BP 156/77
[2020-02-09] MEDS: LEVOTHYROXINE SODIUM 25 MCG TAB PO SCH (05:10)
[2020-02-09 07:00] LABS: Basophils # (auto) 0.1 10 ^3/uL (0-0.2); Hemoglobin 8.8 g/dL (12.2-16.2); Neutrophils # (auto) 8.1 10 ^3/uL (1.6-8.6)
[2020-02-09 07:04] LABS: Basophils % (auto) 0.5 % (0.0-2.0); Eosinophils # (auto) 0.7 10 ^3/uL (0-0.8); Eosinophils % (auto) 5.8 % (0.0-7.0); Hematocrit 28.2 % (36.0-46.0); Lymphocytes # (auto) 2.2 10 ^3/uL (0.4-5.4); Lymphocytes % (auto) 17.5 % (10.0-50.0); Mean Corpuscular Hemoglobin 22.8 pg (28.0-32.0); Mean Corpuscular Hgb Conc. 31.2 g/dL (32.0-36.0); Mean Corpuscular Volume 73.2 fL (80.0-100.0); Monocytes # (auto) 1.4 10 ^3/uL (0-1.3); Monocytes % (auto) 11.2 % (0.0-12.0); Nucleated Red Blood Cells % 0.1 %; Platelet Count (auto) 454 10^3/uL (140-450); Red Blood Cells 3.85 10^6/uL (4.0-5.20); White Blood Cell 12.5 10^3/uL (4.4-10.8)
[2020-02-09 07:14] LABS: Red Cell Distribution Width 33.1 % (11.8-14.3)
[2020-02-09 07:19] LABS: Potassium 4.4 mmol/L (3.5-5.1)
[2020-02-09 07:21] LABS: BUN/Creatinine Ratio 23.6
--- NOTE | 2020-02-09 07:30 | NUR ---
Opening Shift Note Assumed care of patient, awake and alert. No S/S of distress/SOB or pain. Instructed on POC and to call for assist PRN, will continue to monitor for changes Q1hr and PRN. Bed is locked and in lowest position. Call light within reach.
[2020-02-09 08:00] VITALS: BP 148/66
--- NOTE | 2020-02-09 08:27 | NUR ---
PT. ASSESSED FOR PRN. MN. TX. NO RESP. DISTRESS OR SOB NOTED. PT. IS SITTING UP IN BED GETTING READY TO HAVE BREAKFAST. PT. STATED HER BREATHING IS GOOD AND DOES NOT REQUIRE A TX. AT THIS TIME. HR=68,RR=-18, MG73=538% ON RA. NO TX. GIVEN AT THIS TIME.
[2020-02-09 09:00] VITALS: BP 148/66
[2020-02-09] MEDS: APREMILAST 30 MG PO SCH (10:00)
[2020-02-09] MEDS: LACTULOSE 20Gm/30ML SOLN PO SCH ×2 (10:00→22:00)
[2020-02-09] MEDS: ASPirin-EC 81 mg tab PO SCH (10:00)
[2020-02-09] MEDS: PANTOPRAZOLE 40 MG TAB PO SCH (11:18)
[2020-02-09] MEDS: POTASSIUM CHL 20 Meq TABLET PO SCH (11:19)
[2020-02-09] MEDS: SOTALOL HCL 80 MG TAB PO SCH (11:21)
[2020-02-09] MEDS: MUPIROCIN 2% OINT 15gm or 22gm EACHNOSTRI SCH ×2 (11:22→22:34)
[2020-02-09] MEDS: BETAMETHASONE DIPROP0.05% TOPICAL CREAM 15GM TOP SCH ×2 (11:26→22:00)
[2020-02-09 12:39] VITALS: BP 106/33
--- NOTE | 2020-02-09 13:00 | NUR ---
PATIENT WENT DOWN TO PORT CATH REMOVAL PROCEDURE WITH DR. JACOBS. PATIENT TRANSPORTED VIA GURNEY WITH NO SIGNS OF DISTRESS. WILL AWAIT PATIENT RETURN.
[2020-02-09] MEDS ORDERED: LIDOCAINE 1% HCL (LOCAL ANESTH.) INJ 20ML MDV ONE (13:33)
[2020-02-09] MEDS ORDERED: SUCCINYLCHOLINE CHLORIDE 20 MG/ML 10ML VIAL IV ONE (14:12)
[2020-02-09] MEDS ORDERED: LIDOCAINE 1% (LOCAL ANESTH.) PF 5ml SDV ONE (14:12)
[2020-02-09] MEDS ORDERED: MIDAZOLAM HCL 1MG/1ML-2 ML VIAL ONE ×3 (14:39→14:55)
[2020-02-09] MEDS ORDERED: METOCLOPRAMIDE HCL 5MG/ml INJ 2ml VIAL ONE (14:40)
[2020-02-09] MEDS ORDERED: diphenhdrAMINE HCL 50 MG/1 ML VL ONE (14:40)
[2020-02-09] MEDS ORDERED: fentaNYL CITRATE 100 MCG/2 ML VL ONE (14:40)
[2020-02-09] MEDS ORDERED: PROPOFOL 10 MG/ML 20 ML IV ONE ×2 (14:40)
[2020-02-09] MEDS ORDERED: levoFLOXacin 500MG 100 ML IV ONE (14:42)
[2020-02-09] MEDS ORDERED: HYDROmorphone HCL 2 MG/ML VL IV PRN (14:45)
[2020-02-09] MEDS ORDERED: NALOXONE HCL 0.4 MG/ML VIAL IV PRN (14:45)
[2020-02-09] MEDS ORDERED: ONDANSETRON HCL 4 MG/2 ML VIAL IV PRN (14:45)
[2020-02-09] MEDS ORDERED: KETAMINE HCL 10 ML ONE (15:00)
--- NOTE | 2020-02-09 15:09 | NUR ---
Nutrition Assessment Notes Please refer to link for full assessment notes. Est Energy needs: kcals (20-23 kcal/kgBW) d/t pt with Stg 3 CKF Est Protein needs: 60-70 gms/day (0.6-0.75 gm/kgBW) d/t pt with Stg 3 CKF Will continue to monitor and reassess prn. Addendum: 02/09/20 at [address] Amended: Links added.
--- NOTE | 2020-02-09 16:00 | NUR ---
PER REPORT OF PACU PATIENT PORT CATH REMOVED WITH DR. JACOBS. PATIENT WAS UPGRADED TO TELE DUE TO BEING SINUS [place] IN THE 50S. PATIENT PUT ON TELEMONITOR NUMBER 49 AND ITS READING SINUS [place] AT 56. WILL CONTINUE TO MONITOR PATIENT.
[2020-02-09 16:53] VITALS: BP 150/99
--- NOTE | 2020-02-09 18:46 | NUR ---
UPON ASSESSMENT OF PATIENT DRESSING TO RIGHT UPPER CHEST THERE IS VISIBLE RED DRAINAGE. THE DRESSING IS IN PLACE FOR A REMOVAL OF A PORT CATH. THE DRESSING WAS MARKED TO EVALUATE IF IT IS INCREASING. WILL CONTINUE TO MONITOR.
--- NOTE | 2020-02-09 19:15 | NUR ---
Opening Shift Note Assumed care of patient, sleeping, arousable by name an shakes. Per report, this patient has been very drowsy since returning from her procedure earlier today. Once pt awakened, stated she was hungry. Pt did not receive a dinner tray so she was provided a sandwich and crackers by this RN. No S/S of distress/SOB or pain. Safety measures in place, bed in lowest locked position, bed rails raised x2, call light within reach. Spoke with pt daughter Mona after password verified. All questions and concerns addressed at this time. Instructed on POC and to call for assist PRN, will continue to monitor for changes Q1hr and PRN.
--- NOTE | 2020-02-09 19:32 | NUR ---
Respiratory note: NO PRN TX GIVEN AT THIS TIME, SPO2 98% ON R/A, HR 65, RR 16. PT SLEEPING COMFORTABLY, SLEEPING COMFORTABLY.
[2020-02-09] MEDS: levoFLOXacin 500MG 100 ML IV SCH (20:26)
[2020-02-09 21:36] VITALS: BP 109/51
--- NOTE | 2020-02-09 22:00 | NUR ---
Pt very drowsy and difficult to arouse. During med pass, pt was found sleeping with crackers in hand. Pt name called out with no response. Pt shaked and name called, minimal response. Another nurse called in to assist this nurse, pt was able to be aroused and would slightly respond to questions asked but would fall in and out of sleep. Pt able to stay awake long enough to take medications and refused her lactulose. Pt advised to not eat any more food for risk of aspiration. Pt verbalized understanding. Vital signs WNL at this time. Pt laid back to rest. Will continue to monitor for changes in status.
[2020-02-09] MEDS: VANCOMYCIN 750mg/250ml 250 ML IV SCH (22:35)
[2020-02-09] MEDS: ROPINIROLE 1 MG PO SCH (22:35)
[2020-02-09] MEDS: CARBIDOPA W LEVODOPA 10/100mg TABLET PO SCH (22:35)
--- NOTE | 2020-02-10 02:05 | NUR ---
Pt much easier to arouse, was able to hold conversation with this RN and aid. No s/s of distress or pain at this time. Will continue to monitor.
[2020-02-10 04:38] VITALS: BP 133/48
[2020-02-10] MEDS: LEVOTHYROXINE SODIUM 25 MCG TAB PO SCH (06:31)
--- NOTE | 2020-02-10 07:30 | NUR ---
Opening Shift Note: Assumed care of patient, awake and alert x 4. No S/S of distress/SOB or pain. Bed in lowest locked position, side rails up x 2, call light within reach. Patient instructed on POC and to call for assist PRN, will continue to monitor for changes Q1hr and PRN.
[2020-02-10 08:50] VITALS: BP 120/55
[2020-02-10] MEDS: BETAMETHASONE DIPROP0.05% TOPICAL CREAM 15GM TOP SCH ×2 (09:29→21:47)
[2020-02-10] MEDS: ASPirin-EC 81 mg tab PO SCH (09:30)
[2020-02-10] MEDS: POTASSIUM CHL 20 Meq TABLET PO SCH (09:30)
[2020-02-10] MEDS: PANTOPRAZOLE 40 MG TAB PO SCH (09:30)
[2020-02-10] MEDS: LACTULOSE 20Gm/30ML SOLN PO SCH ×2 (09:31→21:47)
[2020-02-10] MEDS: SOTALOL HCL 80 MG TAB PO SCH (09:31)
[2020-02-10] MEDS: APREMILAST 30 MG PO SCH ×2 (09:32→09:55)
[2020-02-10] MEDS: MUPIROCIN 2% OINT 15gm or 22gm EACHNOSTRI SCH ×2 (09:33→21:47)
--- NOTE | 2020-02-10 11:47 | NUR ---
ATTEMPTED TO CALL OR REGARDING PATIENTS MISSING GLASSES. NO ANSWER AT THIS TIME.
--- NOTE | 2020-02-10 12:10 | NUR ---
CONTACTED SERICULTURE TEACHER REGARDING PATIENTS MISSING GLASSES.
[2020-02-10 13:00] VITALS: BP 114/67
--- NOTE | 2020-02-10 13:26 | NUR ---
ATTEMPTED TO CALL OR REGARDING MISSING GLASSES. NO ANSWER. WILL CONTINUE TO TRY.
--- NOTE | 2020-02-10 15:00 | NUR ---
PATIENTS GLASSES RETURNED TO PATIENT.
[2020-02-10 16:35] VITALS: BP 133/67
--- NOTE | 2020-02-10 18:47 | NUR ---
CLOSING NOTE: PATIENT RESTING IN BED. NO S/S OF DISTRESS. CARE ENDORSED.
[2020-02-10] MEDS: levoFLOXacin 500MG 100 ML IV SCH (20:13)
--- NOTE | 2020-02-10 20:35 | NUR ---
PT ASSESSED, BS DIMINISHED BILATERALLY, NO SOB NOTED. PT AWAKE AND ALERT, KNOWS TO CALL IF SOB
[2020-02-10] MEDS: ROPINIROLE 1 MG PO SCH (21:47)
[2020-02-10] MEDS: VANCOMYCIN 750mg/250ml 250 ML IV SCH (21:47)
[2020-02-10] MEDS: CARBIDOPA W LEVODOPA 10/100mg TABLET PO SCH (21:47)
[2020-02-10 22:00] VITALS: BP 144/66
[2020-02-11 05:00] VITALS: BP 147/64
[2020-02-11] MEDS: LEVOTHYROXINE SODIUM 25 MCG TAB PO SCH (07:00)
--- NOTE | 2020-02-11 07:05 | NUR ---
Respiratory note: ASSESSED PT FOR PRN TX PT WAS ASLEEP, NO RESP DISTRESS NOTED. HR 67, RR 18, SPO2 98% ON ROOM AIR. NO INDICATION FOR TX AT THIS TIME. PT KNOWS TO HAVE RT PAGED IF TX IS NEEDED.
--- NOTE | 2020-02-11 07:20 | NUR ---
Opening Shift Note: Assumed care of patient, awake and alert. No S/S of distress/SOB or pain. Bed in lowest locked position, side rails up x 2, call light within reach. Patient instructed on POC and to call for assist PRN, will continue to monitor for changes Q1hr and PRN.
--- NOTE | 2020-02-11 09:43 | NUR ---
PARTIAL BEDDING CHANGE. PATIENT TOLERATED WELL.
[2020-02-11] MEDS: LACTULOSE 20Gm/30ML SOLN PO SCH ×2 (10:00→22:00)
[2020-02-11] MEDS: BETAMETHASONE DIPROP0.05% TOPICAL CREAM 15GM TOP SCH ×2 (10:07→22:05)
[2020-02-11] MEDS: POTASSIUM CHL 20 Meq TABLET PO SCH (10:17)
[2020-02-11] MEDS: PANTOPRAZOLE 40 MG TAB PO SCH (10:17)
[2020-02-11] MEDS: MUPIROCIN 2% OINT 15gm or 22gm EACHNOSTRI SCH (10:18)
[2020-02-11] MEDS: ASPirin-EC 81 mg tab PO SCH (10:18)
[2020-02-11] MEDS: APREMILAST 30 MG PO SCH (10:18)
[2020-02-11] MEDS: SOTALOL HCL 80 MG TAB PO SCH (10:20)
--- NOTE | 2020-02-11 11:00 | NUR ---
WOUND CARE NOTE: PATIENT ADDED TO SKIN INTEGRITY MONITORING D/T LOW HECTOR SCORES. PATIENT ADMITTED TO PENDING SALE TO [facility] WITH DIAGNOSIS OF SEPSIS. PATIENT HAS CURRENT HECTOR SCORE OF 12. PATIENT IS S/P REMOVAL OF INFECTED PORT-A-CATH TO THE CHEST BY DR. JACOBS ON 02/08. PATIENT HAS INTACT DRY DRESSING TO AREA. SHE IS ABLE TO ASSIST WITH HER TURNING/REPOSITIONING, BUT IS WEAK D/T LOW HGB. PATIENT HAS HISTORY WITH PLAQUE PSORIASIS. NO OPEN OR DRAINING AREAS NOTED. SKIN/WOUND CARE PLAN IMPLEMENTED. DIETARY CONSULT ORDERED FOR LOW HECTOR SCORES OF12. RECOMMEND: FREQUENT TURN SCHEDULE Q 2 HOURS, PRN CONDITION PERMITS, WITH PRESSURE REDISTRIBUTION USING PILLOWS/WEDGES, BID/PRN APPLICATION WITH MOISTURE BARRIER CREAM, OPTIFOAM GENTLE SACRAL DRESSING, DIETARY CONSULT, SKIN/WOUND CARE PLAN, CONTINUED MONITORING BY WOUND CARE TEAM.
--- NOTE | 2020-02-11 18:52 | NUR ---
CLOSING NOTE: Patient resting in bed. Dry and clean. No S/S of distress at this time. Care endorsed.
[2020-02-11] MEDS: levoFLOXacin 500MG 100 ML IV SCH (20:25)
[2020-02-11 22:00] VITALS: BP 131/61
[2020-02-11] MEDS: VANCOMYCIN 750mg/250ml 250 ML IV SCH (22:04)
[2020-02-11] MEDS: ROPINIROLE 1 MG PO SCH (22:04)
[2020-02-11] MEDS: CARBIDOPA W LEVODOPA 10/100mg TABLET PO SCH (22:05)
[2020-02-12 01:40] VITALS: BP 128/54
[2020-02-12 05:00] VITALS: BP 147/66
[2020-02-12] MEDS: LEVOTHYROXINE SODIUM 25 MCG TAB PO SCH (07:00)
--- NOTE | 2020-02-12 07:19 | NUR ---
Opening Shift Note: Assumed care of patient, awake and alert. No S/S of distress/SOB or pain. Patient clean and dry at this time. Bed in lowest locked position, side rails up x 2, call light within reach. Patient instructed on POC and to call for assist PRN, will continue to monitor for changes Q1hr and PRN.
[2020-02-12 09:31] VITALS: BP 151/67
[2020-02-12] MEDS: LACTULOSE 20Gm/30ML SOLN PO SCH (10:00)
[2020-02-12] MEDS: APREMILAST 30 MG PO SCH (10:15)
[2020-02-12] MEDS: ASPirin-EC 81 mg tab PO SCH (10:16)
[2020-02-12] MEDS: POTASSIUM CHL 20 Meq TABLET PO SCH (10:16)
[2020-02-12] MEDS: SOTALOL HCL 80 MG TAB PO SCH (10:16)
[2020-02-12] MEDS: BETAMETHASONE DIPROP0.05% TOPICAL CREAM 15GM TOP SCH (10:17)
[2020-02-12] MEDS: PANTOPRAZOLE 40 MG TAB PO SCH (10:17)
[2020-02-12 10:34] LABS: Basophils # (auto) 0.1 10 ^3/uL (0-0.2); Eosinophils # (auto) 0.6 10 ^3/uL (0-0.8); Hemoglobin 8.2 g/dL (12.2-16.2); Monocytes # (auto) 0.9 10 ^3/uL (0-1.3); Monocytes % (auto) 11.2 % (0.0-12.0)
[2020-02-12 10:40] LABS: Basophils % (auto) 1.1 % (0.0-2.0); Eosinophils % (auto) 7.3 % (0.0-7.0); Hematocrit 25.9 % (36.0-46.0); Lymphocytes # (auto) 1.6 10 ^3/uL (0.4-5.4); Lymphocytes % (auto) 20.5 % (10.0-50.0); Mean Corpuscular Hemoglobin 22.7 pg (28.0-32.0); Mean Corpuscular Hgb Conc. 31.8 g/dL (32.0-36.0); Mean Corpuscular Volume 71.4 fL (80.0-100.0); Neutrophils # (auto) 4.7 10 ^3/uL (1.6-8.6); Neutrophils % (auto) 59.9 % (37.0-80.0); Platelet Count (auto) 387 10^3/uL (140-450); Red Blood Cells 3.62 10^6/uL (4.0-5.20); White Blood Cell 7.8 10^3/uL (4.4-10.8)
[2020-02-12 10:48] LABS: Albumin 2.5 g/dL (3.4-5.0); Calcium 8.7 mg/dL (8.5-10.1); Potassium 4.1 mmol/L (3.5-5.1); Red Cell Distribution Width 34.1 % (11.8-14.3)
[2020-02-12 10:52] LABS: BUN/Creatinine Ratio 20.8; Bilirubin, Total 0.2 mg/dL (0.2-1.0); Total Protein 6.2 g/dL (6.4-8.2)
[2020-02-12 13:00] VITALS: BP 148/66
[2020-02-12 15:41] VITALS: BP 148/66
--- NOTE | 2020-02-12 15:42 | NUR ---
D/C Planning Per SS consult to resume home health service with [facility] for wound care and mid line care. Faxed clinical information to agency. Per Geetha with [facility] they will resume service for patient within between 24-48hrs upon d/c day. Informed FABIO Tejeda.
--- NOTE | 2020-02-12 15:52 | NUR ---
Nutrition Followup Notes Pt wt is 102.2 kg. Pt was sleeping when rounded this morning. Pt is with a 2gm Sodium diet, appetite is inadequate aeb ave 13% PO intake over 4 days per RN doc. Consider adding Nepro with Carb Steady 1 ctn TID. Est Energy needs: 4397-1083 kcals (20-23 kcal/kgBW) d/t pt with Stg 3 CKF Est Protein needs: 60-70 gms/day (0.6-0.75 gm/kgBW) d/t pt with Stg 3 CKF Will continue to monitor and reassess prn. LABS: BUN 29 H, CREAT 1.23 H, gGFR 45 L GI: Pt is incontinent per RN doc. BS: 14 mod risk. Refer to wound assessment report for full details. PES: 1) Obesity r/t energy intake in excess of energy needs aeb 162% IBW and BMI of 34.4 kg/m2 2) Altered nutrition related lab values r/t current/chronic medical condition aeb elev RFTs, low GFR Comments Will continue to monitor PO status, skin status, pertinent labs and weight trends. Will f/u in 3-5 days. 1) Continue to carefully monitor pt PO intake to meet at least 75% of meals 2) Consider a Renal Specific 70g Protein,2gNa,K2,lowphos diet 3) Continue current plan of care
--- NOTE | 2020-02-12 16:34 | NUR ---
MIDLINE DRESSING CHANGED USING CLEAN, STERILE TECHNIQUE. PATIENT TOLERATED WELL.
--- NOTE | 2020-02-12 17:46 | NUR ---
Discharge instructions given as ordered. Encourage to follow up with PMD as instructed. All questions and concerns addressed. Patient verbalized understanding. Medication reconciliation form completed and copy given to patient. Home medications held in Pharmacy returned to patient. Per Dr. Cifuentes order, midline left in place, home health resumed through [facility]. Telemetry unit returned to ICU. Family given permission by charge nurse to come to floor and help patient via personal lift to wheel chair. Patient taken to vehicle via wheelchair with all personal belongings, accompanied by staff and family member. No distress noted at time of departure.
== END 2020-02-12 17:40 | disposition home health service (06) | DRG 252 ==
LOC: WEST WING 15:57 → TELE-WESTW 02-09 16:35
PROVIDERS: ADMIT Internal Medicine Cardiovascular Disease; ATTEND Internal Medicine Cardiovascular Disease
PROC: 30233N1 Transfusion of Nonautologous Red Blood Cells into Peripheral Vein, Percutaneous Approach (ICD-10-PCS; principal; 2020-02-06)
PROC: 05PY03Z Removal of Infusion Device from Upper Vein, Open Approach (ICD-10-PCS; 2020-02-09)
PROC: 0JPT0WZ Removal of Totally Implantable Vascular Access Device from Trunk Subcutaneous Tissue and Fascia, Open Approach (ICD-10-PCS; 2020-02-09)
DX: T80.219A Unspecified infection due to central venous catheter, initial encounter (principal); A41.9 Sepsis, unspecified organism; G93.41 Metabolic encephalopathy; N39.0 Urinary tract infection, site not specified; I48.20 Chronic atrial fibrillation, unspecified; I13.0 Hypertensive heart and chronic kidney disease with heart failure and stage 1 through stage 4 chronic kidney disease, or unspecified chronic kidney disease; D68.59 Other primary thrombophilia; Y84.8 Other medical procedures as the cause of abnormal reaction of the patient, or of later complication, without mention of misadventure at the time of the procedure; K21.9 Gastro-esophageal reflux disease without esophagitis; D64.9 Anemia, unspecified; E11.22 Type 2 diabetes mellitus with diabetic chronic kidney disease; I50.9 Heart failure, unspecified; E03.9 Hypothyroidism, unspecified; Z87.440 Personal history of urinary (tract) infections; Z99.2 Dependence on renal dialysis; Z79.01 Long term (current) use of anticoagulants; Z82.49 Family history of ischemic heart disease and other diseases of the circulatory system; Z88.0 Allergy status to penicillin; Z88.5 Allergy status to narcotic agent; Z88.2 Allergy status to sulfonamides; G47.33 Obstructive sleep apnea (adult) (pediatric); M54.5 Low back pain
CPT/HCPCS: 36415; 71045; 80048; 80053; 80202; 85014; 85018; 85025; 85610; 85730; 86850; 86900; 86901; 86920; 87070; 87075; 87081; 87205; 87426; G0378; J0330; J1956; J2001; J2250; J2704

== ENCOUNTER → 2020-11-15 | Outpatient (CLI) | payer MEDICARE, OTHER, MEDICAID ==
[~2020-11-15] MED LIST changes: +ACET-1304 PO; +ALBU0.084 NEB; -APRE1TAB2 PO; +APRE30TA PO; +ASPI-498 PO; +CARB25TA75 PO; -CLOT1CRE13 TOP; +CLOTLOT EX; +DIP005TP TOP; +ESOM40CA39 PO; -FAMO-12 PO; +FLUT1SPR5; +LEVO-28 PO; +ONDA-144 PO; +POTA-180 PO; -POTA10TA51 PO
== END | disposition home or self-care (01) ==
LOC: Rad HDHVI 11:13
PROVIDERS: ATTEND Internal Medicine Cardiovascular Disease
DX: R00.2 Palpitations (principal); R06.02 Shortness of breath
CPT/HCPCS: 93306

== ENCOUNTER → 2020-11-28 | Outpatient (CLI) | payer MEDICARE, OTHER, MEDICAID ==
[~2020-11-28] VITALS: Ht 175.3 cm; Wt 98.9 kg
[~2020-11-28] MED LIST changes: +ADENOSINE 83 MG in GIVE UN-DILUTED 0 ML IV ONE; +ADENOSINE 90 MG/30 ML INJ IV ONE
== END | disposition home or self-care (01) ==
LOC: Rad HDHVI 15:52
PROVIDERS: ATTEND Internal Medicine Cardiovascular Disease
DX: I11.0 Hypertensive heart disease with heart failure (principal); I50.33 Acute on chronic diastolic (congestive) heart failure; E78.5 Hyperlipidemia, unspecified; I48.0 Paroxysmal atrial fibrillation; I49.5 Sick sinus syndrome; Z82.49 Family history of ischemic heart disease and other diseases of the circulatory system
CPT/HCPCS: 78452; 93005; 96374; 96375; A9500; J0153

== ENCOUNTER 2021-06-13 12:06 | Emergency (ER) | payer MEDICARE, OTHER, MEDICAID ==
[~2021-06-13] VITALS: Ht 170.2 cm; Wt 99.8 kg
[~2021-06-13 12:06] MED LIST changes: -ADENOSINE 83 MG in GIVE UN-DILUTED 0 ML IV ONE; -ADENOSINE 90 MG/30 ML INJ IV ONE
[2021-06-13 15:29] LABS: Mean Corpuscular Volume 59.6 fL (80.0-100.0)
[2021-06-13 15:31] LABS: Hematocrit 20.6 % (36.0-46.0); Mean Corpuscular Hemoglobin 18.2 pg (28.0-32.0); Mean Corpuscular Hgb Conc. 30.5 g/dL (32.0-36.0); Red Blood Cells 3.45 10^6/uL (4.0-5.20); Red Cell Distribution Width 18.9 % (11.8-14.3); White Blood Cell 11.5 10^3/uL (4.4-10.8)
[2021-06-13 15:35] LABS: Hemoglobin 6.3 g/dL (12.2-16.2)
[2021-06-13 15:36] LABS: Band Neutrophils % (manual) 0; Basophils % (manual) 0 (0.0-2.0); Blast Cells 0; Metamyelocytes % 0; Myelocytes % 0; Promyelocytes % 0; Reactive Lymphocytes 0
[2021-06-13 15:44] LABS: INR 1.08 (0.9-1.15); Partial Thromboplastin Time 28.2 sec (23.6-33.0)
[2021-06-13 15:55] LABS: Albumin 3.2 g/dL (3.4-5.0); Calcium 9.2 mg/dL (8.5-10.1)
[2021-06-13 15:59] LABS: BUN/Creatinine Ratio 25.5; Bilirubin, Total 0.2 mg/dL (0.2-1.0); Total Protein 7.1 g/dL (6.4-8.2)
[2021-06-13 16:05] LABS: Eosinophils % (manual) 2 (0-7); Lymphocytes % (manual) 17 (10.0-50.0); Monocytes % (manual) 3 (0-12)
[2021-06-13] MEDS ORDERED: traMADol HCL 50 MG TAB PO ONE (17:45)
[2021-06-13 22:08] VITALS: BP 129/67
[2021-06-13 22:30] VITALS: BP 135/53
[2021-06-13 23:00] VITALS: BP 142/78
[2021-06-13] MEDS ORDERED: ACETAMINOPHEN 325 MG TAB PO ONE (23:00)
[2021-06-14 03:11] LABS: Hemoglobin 7.4 g/dL (12.2-16.2); Mean Corpuscular Hemoglobin 19.5 pg (28.0-32.0); Mean Corpuscular Hgb Conc. 30.7 g/dL (32.0-36.0); Mean Corpuscular Volume 63.5 fL (80.0-100.0); Red Blood Cells 3.78 10^6/uL (4.0-5.20); White Blood Cell 14.7 10^3/uL (4.4-10.8)
[2021-06-14] MEDS ORDERED: IBUPROFEN 800 MG TAB PO ONE (03:15)
[2021-06-14 03:58] LABS: Basophils % (manual) 0 (0.0-2.0); Blast Cells 0; Eosinophils % (manual) 0 (0-7); Metamyelocytes % 0; Monocytes % (manual) 0 (0-12); Myelocytes % 0; Promyelocytes % 0; Reactive Lymphocytes 0
[2021-06-14 04:41] VITALS: BP 144/99
[2021-06-14 06:47] LABS: Band Neutrophils % (manual) 4; Lymphocytes % (manual) 12 (10.0-50.0)
== END 2021-06-14 05:12 | disposition home or self-care (01) ==
LOC: ER 12:06
DX: D64.9 Anemia, unspecified (principal); E11.22 Type 2 diabetes mellitus with diabetic chronic kidney disease; I13.0 Hypertensive heart and chronic kidney disease with heart failure and stage 1 through stage 4 chronic kidney disease, or unspecified chronic kidney disease; N18.9 Chronic kidney disease, unspecified; I50.9 Heart failure, unspecified; Z88.0 Allergy status to penicillin; Z88.2 Allergy status to sulfonamides
CPT/HCPCS: 36415; 36430; 80053; 85007; 85027; 85610; 85730; 86850; 86900; 86901; 86920; 99285; J7030; P9016

== ENCOUNTER → 2021-06-16 | Outpatient (CLI) | payer MEDICARE, OTHER, MEDICAID ==
[2021-06-16 15:25] LABS: Basophils # (auto) 0.1 10 ^3/uL (0-0.2); Basophils % (auto) 1.2 % (0.0-2.0); Hemoglobin 7.1 g/dL (12.2-16.2); Lymphocytes # (auto) 2.6 10 ^3/uL (0.4-5.4)
[2021-06-16 15:26] LABS: Eosinophils # (auto) 0.4 10 ^3/uL (0-0.8); Hematocrit 23.4 % (36.0-46.0); Lymphocytes % (auto) 21.8 % (10.0-50.0); Mean Corpuscular Hgb Conc. 30.5 g/dL (32.0-36.0); Monocytes # (auto) 0.9 10 ^3/uL (0-1.3); Monocytes % (auto) 7.7 % (0.0-12.0); Neutrophils % (auto) 66.3 % (37.0-80.0); Nucleated Red Blood Cells % 0.1 %; Red Blood Cells 3.62 10^6/uL (4.0-5.20)
[2021-06-16 15:27] LABS: Potassium 4.5 mmol/L (3.5-5.1)
[2021-06-16 15:29] LABS: BUN/Creatinine Ratio 23.6
[2021-06-16 15:32] LABS: Mean Corpuscular Hemoglobin 19.7 pg (28.0-32.0); Mean Corpuscular Volume 64.7 fL (80.0-100.0)
[2021-06-16 15:33] LABS: Red Cell Distribution Width 23.8 % (11.8-14.3)
== END | disposition home or self-care (01) ==
LOC: LAB 14:27
PROVIDERS: ATTEND Internal Medicine Cardiovascular Disease
DX: D64.9 Anemia, unspecified (principal)
CPT/HCPCS: 36415; 80048; 85025

== ENCOUNTER 2021-10-04 14:45 | Emergency (ER) | payer MEDICARE, OTHER, MEDICAID ==
[~2021-10-04] VITALS: Ht 170.2 cm; Wt 99.8 kg
[2021-10-04 15:49] VITALS: BP 108/69
[2021-10-04] MEDS ORDERED: ACETAMINOPHEN 500 MG TAB PO ONE (16:15)
[2021-10-04] MEDS ORDERED: ACET-1080 PO (16:17)
== END 2021-10-04 16:28 | disposition home or self-care (01) ==
LOC: ER 14:45
DX: M19.042 Primary osteoarthritis, left hand (principal); M20.012 Mallet finger of left finger(s); E11.22 Type 2 diabetes mellitus with diabetic chronic kidney disease; I13.0 Hypertensive heart and chronic kidney disease with heart failure and stage 1 through stage 4 chronic kidney disease, or unspecified chronic kidney disease; N18.9 Chronic kidney disease, unspecified; I50.9 Heart failure, unspecified; Z88.0 Allergy status to penicillin; Z88.2 Allergy status to sulfonamides; Z88.6 Allergy status to analgesic agent
CPT/HCPCS: 73130

== ENCOUNTER 2022-01-23 08:12 | Day surgery (SDC) | payer MEDICARE, MEDICAID ==
[~2022-01-23] VITALS: Ht 33 cm; Wt 0.5 kg
[2022-01-23] VITALS (11 sets, daily range): BP systolic 142–185; BP diastolic 56–78
[~2022-01-23 08:12] MED LIST changes: +ACET-1080 PO; -CLOTLOT EX; +CLOTLOT TOP; -ESOM40CA39 PO
[2022-01-23] MEDS ORDERED: MEROPENEM 1GM IVPB 100 ML IV ONE (10:15)
[2022-01-23] MEDS ORDERED: FURO20TA3 PO (11:35)
[2022-01-23] MEDS ORDERED: CARB-79 PO (11:35)
[2022-01-23] MEDS ORDERED: [UNRECOGNIZED DRUG - CODE] PO (11:35)
[2022-01-23] MEDS ORDERED: SOTA80TA PO (11:35)
[2022-01-23] MEDS ORDERED: DIP005TP TOP (11:35)
[2022-01-23] MEDS ORDERED: SODIUM CHLOR 0.9% PF (SALINE LOCK) 10ML VIAL/SYR IV ONE (16:00)
== END 2022-01-23 16:45 | disposition home or self-care (01) ==
LOC: CATH 08:12
PROVIDERS: ATTEND Internal Medicine Cardiovascular Disease
DX: D64.9 Anemia, unspecified (principal); I50.9 Heart failure, unspecified; J44.9 Chronic obstructive pulmonary disease, unspecified; G47.30 Sleep apnea, unspecified; Z85.110 Personal history of malignant carcinoid tumor of bronchus and lung; Z82.49 Family history of ischemic heart disease and other diseases of the circulatory system; Z82.5 Family history of asthma and other chronic lower respiratory diseases; Z80.8 Family history of malignant neoplasm of other organs or systems; Z20.822 Contact with and (suspected) exposure to COVID-19
CPT/HCPCS: 36430; 86850; 86900; 86901; 86920; J2185; J7040; P9016; U0003

== ENCOUNTER 2022-02-25 10:09 | Inpatient (IN) | payer MEDICARE, MEDICAID ==
[~2022-02-25] VITALS: Ht 167.6 cm; Wt 97.4 kg
[~2022-02-25 10:09] MED LIST changes: -ACET-1080 PO; +CARB-79 PO; -CARB25TA75 PO; -FUR40T PO; +FURO20TA3 PO; -LEVO-28 PO; +[UNRECOGNIZED DRUG - CODE] PO
[2022-02-25] MEDS ORDERED: SODIUM CHLORIDE 0.9% 1,000 ML IV ONE (10:45)
[2022-02-25] MEDS ORDERED: ACETAMINOPHEN 500 MG TAB PO ONE (11:00)
[2022-02-25] MEDS ORDERED: cefTRIAXone 1GM/50ML D5W 50 ML IV ONE (11:15)
[2022-02-25 11:40] LABS: Albumin 2.9 g/dL (3.4-5.0); Calcium 8.9 mg/dL (8.5-10.1)
[2022-02-25 11:43] LABS: BUN/Creatinine Ratio 28.9; Bilirubin, Total 0.4 mg/dL (0.2-1.0); Total Protein 7.1 g/dL (6.4-8.2)
[2022-02-25 11:44] LABS: Basophils # (auto) 0.1 10 ^3/uL (0-0.2); Basophils % (auto) 0.4 % (0.0-2.0); Eosinophils # (auto) 0.1 10 ^3/uL (0-0.8); Eosinophils % (auto) 0.5 % (0.0-7.0); Hematocrit 31.9 % (36.0-46.0); Lymphocytes # (auto) 1.4 10 ^3/uL (0.4-5.4); Lymphocytes % (auto) 10.1 % (10.0-50.0); Mean Corpuscular Hemoglobin 21.6 pg (28.0-32.0); Mean Corpuscular Hgb Conc. 31.3 g/dL (32.0-36.0); Monocytes # (auto) 0.6 10 ^3/uL (0-1.3); Monocytes % (auto) 4.1 % (0.0-12.0); Neutrophils # (auto) 11.5 10 ^3/uL (1.6-8.6); Neutrophils % (auto) 84.9 % (37.0-80.0); Red Blood Cells 4.62 10^6/uL (4.0-5.20); White Blood Cell 13.5 10^3/uL (4.4-10.8)
[2022-02-25 11:45] LABS: Red Cell Distribution Width 28.8 % (11.8-14.3)
[2022-02-25 11:54] LABS: INR 1.03 (0.9-1.15); Partial Thromboplastin Time 22.1 sec (24.6-33.4)
[2022-02-25] MEDS ORDERED: AMIODARONE HCL 150 MG in D5W 5% 100 ML IV ONE (12:15)
[2022-02-25] MEDS ORDERED: AMIODARONE 450mg/250ml AE 250 ML IV SCH ×3 (13:15→19:15)
[2022-02-25] MEDS ORDERED: DOCUSATE SOD 100 MG CAP PO PRN (14:45)
[2022-02-25] MEDS ORDERED: SODIUM CHLORIDE 0.9% 1,000 ML IV SCH (14:45)
[2022-02-25] MEDS ORDERED: MORPHINE SULFATE INJ 2 MG/ml SYRG IV PRN ×2 (14:45)
[2022-02-25] MEDS ORDERED: ONDANSETRON HCL 4 MG/2 ML VIAL IV PRN (14:45)
[2022-02-25] MEDS ORDERED: ALUM & MAG HYDROX-SIMETH LIQ(MAALOX) 30 ML PO PRN (14:45)
[2022-02-25] MEDS ORDERED: HYDROcodone-ACET 5/325MG TAB PO PRN (14:45)
[2022-02-25] MEDS ORDERED: NITROGLYCERIN 0.4 MG SL TAB SL PRN (14:45)
[2022-02-25 15:06] LABS: Urine Bacteria NONE SEEN /hpf (None Seen); Urine Blood 2+ /uL (Negative); Urine Specific Gravity 1.012 (1.001-1.035); Urine WBC 172 /hpf (0 - 5); Urine WBC Clumps PRESENT /hpf (None Seen)
[2022-02-25] MEDS ORDERED: VANCOMYCIN PER PHARMACY 0 MG IV SCH (15:45)
[2022-02-25] MEDS ORDERED: VANCOMYCIN 1GM/250ML 250 ML IV SCH (17:00)
[2022-02-25] MEDS: ACETAMINOPHEN 325 MG TAB PO PRN ×2 (18:12→22:20)
[2022-02-25] MEDS: HEPARIN SODIUM (PORCINE) 5000 UNITS/ML 1ML VIAL SC SCH (21:34)
[2022-02-25] MEDS: FUROSEMIDE 40 MG/4 ML VIAL IV SCH (21:34)
[2022-02-26 01:35] VITALS: BP 126/42
[2022-02-26] MEDS ORDERED: CARB10TA21 PO (02:57)
[2022-02-26 05:00] VITALS: BP 132/47
[2022-02-26 06:24] LABS: Hematocrit 26.3 % (36.0-46.0); Hemoglobin 8.5 g/dL (12.2-16.2); Mean Corpuscular Hemoglobin 22.3 pg (28.0-32.0)
[2022-02-26 06:27] LABS: Mean Corpuscular Hgb Conc. 32.4 g/dL (32.0-36.0); Mean Corpuscular Volume 68.8 fL (80.0-100.0); Red Blood Cells 3.82 10^6/uL (4.0-5.20); White Blood Cell 13.3 10^3/uL (4.4-10.8)
[2022-02-26 06:43] LABS: Potassium 3.6 mmol/L (3.5-5.1)
[2022-02-26 06:50] LABS: Albumin 2.4 g/dL (3.4-5.0); BUN/Creatinine Ratio 24.3; Bilirubin, Direct 0.1 mg/dL (0-0.2); Bilirubin, Total 0.4 mg/dL (0.2-1.0); Calcium 8.4 mg/dL (8.5-10.1); Phosphorus 3.1 mg/dL (2.5-4.90)
[2022-02-26 07:12] LABS: Red Cell Distribution Width 27.5 % (11.8-14.3)
[2022-02-26 07:14] LABS: Basophils % (manual) 0 (0.0-2.0); Blast Cells 0; Metamyelocytes % 0; Myelocytes % 0; Promyelocytes % 0; Reactive Lymphocytes 0
[2022-02-26 08:26] LABS: Band Neutrophils % (manual) 2; Eosinophils % (manual) 2 (0-7); Lymphocytes % (manual) 14 (10.0-50.0); Monocytes % (manual) 4 (0-12)
[2022-02-26 09:00] VITALS: BP 117/63
[2022-02-26] MEDS: FUROSEMIDE 40 MG/4 ML VIAL IV SCH (09:42)
[2022-02-26] MEDS ORDERED: FERROUS SULFATE 325mg EC TAB PO SCH (10:00)
[2022-02-26] MEDS ORDERED: levoFLOXacin 750MG 150 ML IV SCH (10:00)
[2022-02-26] MEDS: HEPARIN SODIUM (PORCINE) 5000 UNITS/ML 1ML VIAL SC SCH (10:01)
[2022-02-26] MEDS ORDERED: ERTAPENEM SOD INJ 1 GM in SODIUM CHL 0.9% 50 ML IV ONE (10:30)
[2022-02-26 13:00] VITALS: BP 136/56
[2022-02-26] MEDS: CARBIDOPA W LEVODOPA 10/100mg TABLET PO SCH ×3 (13:26→22:00)
[2022-02-26] MEDS: ACETAMINOPHEN 325 MG TAB PO PRN (14:32)
[2022-02-26 16:53] VITALS: BP 110/55
[2022-02-26 22:00] VITALS: BP 126/58
[2022-02-26] MEDS: SOTALOL HCL 80 MG TAB PO SCH (22:34)
[2022-02-26] MEDS: APIXABAN 2.5 MG TAB PO SCH (22:35)
[2022-02-26] MEDS: traMADol HCL 50 MG TAB PO PRN (23:31)
[2022-02-27 05:00] VITALS: BP 118/52
[2022-02-27] MEDS: CARBIDOPA W LEVODOPA 10/100mg TABLET PO SCH ×4 (05:24→23:28)
[2022-02-27 06:15] LABS: Mean Corpuscular Volume 68.5 fL (80.0-100.0)
[2022-02-27 06:20] LABS: Hematocrit 25.1 % (36.0-46.0); Hemoglobin 8.1 g/dL (12.2-16.2); Mean Corpuscular Hemoglobin 22.2 pg (28.0-32.0); Mean Corpuscular Hgb Conc. 32.4 g/dL (32.0-36.0); Red Blood Cells 3.66 10^6/uL (4.0-5.20); White Blood Cell 9.1 10^3/uL (4.4-10.8)
[2022-02-27 06:33] LABS: Albumin 2.4 g/dL (3.4-5.0); Calcium 8.3 mg/dL (8.5-10.1); Potassium 3.9 mmol/L (3.5-5.1)
[2022-02-27] MEDS: LEVOTHYROXINE SODIUM 25 MCG TAB PO SCH (06:35)
[2022-02-27 06:36] LABS: Red Cell Distribution Width 27.4 % (11.8-14.3)
[2022-02-27 06:38] LABS: BUN/Creatinine Ratio 26.6; Basophils % (manual) 0 (0.0-2.0); Bilirubin, Total 0.4 mg/dL (0.2-1.0); Blast Cells 0; Metamyelocytes % 0; Myelocytes % 0; Promyelocytes % 0; Reactive Lymphocytes 0; Total Protein 5.3 g/dL (6.4-8.2)
[2022-02-27 07:50] LABS: Band Neutrophils % (manual) 1; Eosinophils % (manual) 1 (0-7); Lymphocytes % (manual) 25 (10.0-50.0); Monocytes % (manual) 18 (0-12)
[2022-02-27 08:15] VITALS: BP 111/29
[2022-02-27 09:00] VITALS: BP 111/29
[2022-02-27] MEDS ORDERED: FUROSEMIDE 20 MG TAB PO SCH (10:00)
[2022-02-27] MEDS ORDERED: POTASSIUM CHL 10 Meq TABLET PO SCH (10:00)
[2022-02-27] MEDS: ERTAPENEM SOD INJ 1 GM in SODIUM CHL 0.9% 50 ML IV SCH (10:34)
[2022-02-27] MEDS: SOTALOL HCL 80 MG TAB PO SCH ×2 (10:38→21:55)
[2022-02-27] MEDS: APIXABAN 2.5 MG TAB PO SCH ×2 (10:39→21:56)
[2022-02-27 11:43] VITALS: BP 122/50
[2022-02-27] MEDS: ACETAMINOPHEN 325 MG TAB PO PRN (16:09)
[2022-02-27 17:00] VITALS: BP 116/46
[2022-02-27 22:00] VITALS: BP 120/50
[2022-02-28 04:43] VITALS: BP 142/45
[2022-02-28 06:10] LABS: Hematocrit 24.1 % (36.0-46.0); Mean Corpuscular Hemoglobin 22.7 pg (28.0-32.0); Mean Corpuscular Volume 68.8 fL (80.0-100.0); Red Blood Cells 3.51 10^6/uL (4.0-5.20); White Blood Cell 8.2 10^3/uL (4.4-10.8)
[2022-02-28 06:17] LABS: Red Cell Distribution Width 27.6 % (11.8-14.3)
[2022-02-28 06:18] LABS: Band Neutrophils % (manual) 0; Basophils % (manual) 0 (0.0-2.0); Blast Cells 0; Metamyelocytes % 0; Myelocytes % 0; Promyelocytes % 0; Reactive Lymphocytes 0
[2022-02-28] MEDS: LEVOTHYROXINE SODIUM 25 MCG TAB PO SCH (06:34)
[2022-02-28 06:46] LABS: Potassium 4.2 mmol/L (3.5-5.1)
[2022-02-28 06:50] LABS: BUN/Creatinine Ratio 26.7; Calcium 8.2 mg/dL (8.5-10.1)
[2022-02-28 08:10] VITALS: BP 138/57
[2022-02-28 08:57] VITALS: BP 138/57
[2022-02-28] MEDS: APIXABAN 2.5 MG TAB PO SCH ×2 (09:47→21:10)
[2022-02-28] MEDS: ERTAPENEM SOD INJ 1 GM in SODIUM CHL 0.9% 50 ML IV SCH (09:47)
[2022-02-28] MEDS: SOTALOL HCL 80 MG TAB PO SCH ×2 (09:48→21:08)
[2022-02-28] MEDS: FUROSEMIDE 20 MG TAB PO SCH (10:00)
[2022-02-28] MEDS ORDERED: FUROSEMIDE 20 MG TAB PO ONE (10:00)
[2022-02-28 11:57] LABS: Eosinophils % (manual) 1 (0-7); Lymphocytes % (manual) 31 (10.0-50.0); Monocytes % (manual) 6 (0-12)
[2022-02-28 13:00] VITALS: BP 129/54
[2022-02-28 16:39] VITALS: BP 119/50
[2022-02-28] MEDS: CARBIDOPA W LEVODOPA 10/100mg TABLET PO SCH (21:09)
[2022-03-01 04:46] VITALS: BP 128/37
[2022-03-01] MEDS: LEVOTHYROXINE SODIUM 25 MCG TAB PO SCH (06:19)
[2022-03-01 07:36] VITALS: BP 140/70
[2022-03-01 07:50] VITALS: BP 140/70
[2022-03-01 09:20] LABS: BUN/Creatinine Ratio 24.6; Calcium 8.2 mg/dL (8.5-10.1); Potassium 4.1 mmol/L (3.5-5.1)
[2022-03-01] MEDS: APIXABAN 2.5 MG TAB PO SCH ×2 (10:36→21:32)
[2022-03-01] MEDS: FUROSEMIDE 20 MG TAB PO SCH (10:36)
[2022-03-01] MEDS: ERTAPENEM SOD INJ 1 GM in SODIUM CHL 0.9% 50 ML IV SCH (10:36)
[2022-03-01] MEDS: SOTALOL HCL 80 MG TAB PO SCH ×2 (10:37→21:32)
[2022-03-01 12:10] VITALS: BP 118/62
[2022-03-01 16:58] VITALS: BP 139/66
[2022-03-01] MEDS: CARBIDOPA W LEVODOPA 10/100mg TABLET PO SCH (21:32)
[2022-03-01 22:00] VITALS: BP 143/77
[2022-03-02 05:00] VITALS: BP 155/47
[2022-03-02] MEDS: LEVOTHYROXINE SODIUM 25 MCG TAB PO SCH (07:33)
[2022-03-02 08:00] VITALS: BP 132/49
[2022-03-02 09:00] VITALS: BP 132/49
[2022-03-02] MEDS: ERTAPENEM SOD INJ 1 GM in SODIUM CHL 0.9% 50 ML IV SCH (09:34)
[2022-03-02] MEDS: APIXABAN 2.5 MG TAB PO SCH (09:34)
[2022-03-02] MEDS: FUROSEMIDE 20 MG TAB PO SCH (09:35)
[2022-03-02] MEDS: SOTALOL HCL 80 MG TAB PO SCH (09:36)
[2022-03-02 13:00] VITALS: BP 140/71
[2022-03-02 13:31] VITALS: BP 132/49
[2022-03-02] MEDS: traMADol HCL 50 MG TAB PO PRN (15:35)
== END 2022-03-02 18:00 | disposition home or self-care (01) | DRG 871 ==
LOC: EDBD 10:09 → ER 10:09 → TELE 14:47 → TELE-CENTR 23:31
PROVIDERS: ADMIT Family Medicine; ATTEND Internal Medicine
DX: A41.9 Sepsis, unspecified organism (principal); I50.33 Acute on chronic diastolic (congestive) heart failure; N39.0 Urinary tract infection, site not specified; E46 Unspecified protein-calorie malnutrition; Z68.41 Body mass index [BMI] 40.0-44.9, adult; Z16.12 Extended spectrum beta lactamase (ESBL) resistance; D68.69 Other thrombophilia; Z20.822 Contact with and (suspected) exposure to COVID-19; K21.9 Gastro-esophageal reflux disease without esophagitis; R32 Unspecified urinary incontinence; M17.0 Bilateral primary osteoarthritis of knee; E11.9 Type 2 diabetes mellitus without complications; B96.20 Unspecified Escherichia coli [E. coli] as the cause of diseases classified elsewhere; E03.9 Hypothyroidism, unspecified; E66.01 Morbid (severe) obesity due to excess calories; I11.0 Hypertensive heart disease with heart failure; I48.91 Unspecified atrial fibrillation; J44.9 Chronic obstructive pulmonary disease, unspecified; Z74.01 Bed confinement status; Z82.49 Family history of ischemic heart disease and other diseases of the circulatory system; Z95.2 Presence of prosthetic heart valve; Z87.440 Personal history of urinary (tract) infections
CPT/HCPCS: 36415; 71045; 80048; 80053; 81001; 82248; 82270; 83036; 83605; 83880; 84100; 84443; 84484; 85007; 85025; 85027; 85379; 85610; 85730; 87040; 87077; 87086; 87088; 87186; 93306; 96361; 96365; G0378; J0696; J1335; J1956; J2405; J7060

== ENCOUNTER 2022-05-09 20:22 | Inpatient (IN) | payer MEDICARE, OTHER, MEDICAID ==
[~2022-05-09] VITALS: Ht 170.2 cm; Wt 95.8 kg
[~2022-05-09 20:22] MED LIST changes: +CARB10TA21 PO
[2022-05-09] MEDS ORDERED: ONDANSETRON HCL 4 MG/2 ML VIAL IV ONE (20:45)
[2022-05-09] MEDS ORDERED: SOTALOL HCL 80 MG TAB PO ONE (21:00)
[2022-05-09] MEDS ORDERED: LEVALBUTEROL HCL 1.25 MG/3 ML NEB ONE (21:15)
[2022-05-09] MEDS ORDERED: LEVALBUTEROL HCL 1.25 MG/3 ML NEB NEB SCH (21:15)
[2022-05-09 22:06] LABS: Basophils # (auto) 0.1 10 ^3/uL (0-0.2); Basophils % (auto) 1.1 % (0.0-2.0); Eosinophils # (auto) 0.1 10 ^3/uL (0-0.8); Monocytes # (auto) 1.7 10 ^3/uL (0-1.3); Nucleated Red Blood Cells % 0.1 %
[2022-05-09 22:07] LABS: Hematocrit 34.7 % (36.0-46.0); Hemoglobin 10.8 g/dL (12.2-16.2); Lymphocytes # (auto) 1.6 10 ^3/uL (0.4-5.4); Lymphocytes % (auto) 14.5 % (10.0-50.0); Mean Corpuscular Hemoglobin 22.4 pg (28.0-32.0); Mean Corpuscular Hgb Conc. 31.2 g/dL (32.0-36.0); Mean Corpuscular Volume 71.8 fL (80.0-100.0); Monocytes % (auto) 15.6 % (0.0-12.0); Neutrophils # (auto) 7.3 10 ^3/uL (1.6-8.6); Neutrophils % (auto) 67.8 % (37.0-80.0); Red Blood Cells 4.83 10^6/uL (4.0-5.20); White Blood Cell 10.8 10^3/uL (4.4-10.8)
[2022-05-09 22:23] LABS: Albumin 2.9 g/dL (3.4-5.0); BUN/Creatinine Ratio 24.7; Calcium 9.3 mg/dL (8.5-10.1); Potassium 4.4 mmol/L (3.5-5.1)
[2022-05-09 22:26] LABS: Bilirubin, Total 0.3 mg/dL (0.2-1.0); Total Protein 7.1 g/dL (6.4-8.2)
[2022-05-09 22:46] LABS: INR 1.07 (0.9-1.15)
[2022-05-10] MEDS ORDERED: LEVALBUTEROL HCL 1.25 MG/3 ML NEB NEB SCH (02:00)
[2022-05-10] MEDS ORDERED: DEXTROSE (50%) 50ML SYRG IV PRN ×2 (13:45→14:00)
[2022-05-10] MEDS ORDERED: ALBUTEROL SULF 2.5 MG/0.5ML(0.5%) NEB SOLN NEB PRN (13:45)
[2022-05-10] MEDS ORDERED: IPRATROPIUM BROM 0.5 MG/2.5ML INH SOL NEB PRN (13:45)
[2022-05-10] MEDS ORDERED: NITROGLYCERIN 0.4 MG SL TAB SL PRN (13:45)
[2022-05-10 13:58] VITALS: BP 142/77
[2022-05-10] MEDS ORDERED: FUROSEMIDE 40 MG/4 ML VIAL IV ONE (14:00)
[2022-05-10] MEDS ORDERED: IOHEXOL 350 MG/ML 100ML IJ ONE (14:15)
[2022-05-10 15:06] LABS: Urine Bacteria NONE SEEN /hpf (None Seen); Urine Blood 2+ /uL (Negative); Urine Specific Gravity 1.015 (1.001-1.035); Urine WBC 100 /hpf (0 - 5)
[2022-05-10 15:43] LABS: Cholesterol 162 mg/dL (< 200)
[2022-05-10 15:46] LABS: HDL Cholesterol 55 mg/dL (40-59); LDL Cholesterol 95 mg/dL (< 100); Triglycerides 99 mg/dL (< 150)
[2022-05-10] MEDS ORDERED: ACCU-CHEK COMFORT CURVE STRIP VI SCH (17:00)
[2022-05-10] MEDS ORDERED: InsuLIN REG 1unit/0.01ml Soln (100units/ml) SC SCH (17:00)
[2022-05-10] MEDS ORDERED: ALBUTEROL SULF 2.5 MG/0.5ML(0.5%) NEB SOLN NEB SCH (18:00)
[2022-05-10] MEDS ORDERED: IPRATROPIUM BROM 0.5 MG/2.5ML INH SOL NEB SCH (18:00)
[2022-05-10] MEDS: ACCU-CHEK COMFORT CURVE STRIP VI SCH ×2 (18:02→22:00)
[2022-05-10] MEDS: InsuLIN REG 1unit/0.01ml Soln (100units/ml) SC SCH ×2 (18:02→23:12)
[2022-05-10] MEDS: CARBIDOPA W LEVODOPA 10/100mg TABLET PO SCH (22:00)
[2022-05-10] MEDS: ROPINIROLE HYDROCHLORIDE PO SCH (22:00)
[2022-05-10] MEDS: IPRATROPIUM BROM 0.5 MG/2.5ML INH SOL NEB SCH (22:44)
[2022-05-10] MEDS: ALBUTEROL SULF 2.5 MG/0.5ML(0.5%) NEB SOLN NEB SCH (22:44)
[2022-05-10] MEDS ORDERED: dilTIAZem 25 MG/5 ML VIAL IV ONE (22:45)
[2022-05-10] MEDS: APIXABAN 2.5 MG TAB PO SCH (23:10)
[2022-05-10] MEDS ORDERED: AMIODARONE HCL 150 MG in D5W 5% 100 ML IV ONE (23:45)
[2022-05-11] MEDS ORDERED: AMIODARONE 450mg/250ml AE 250 ML IV SCH
[2022-05-11] MEDS: ALBUTEROL SULF 2.5 MG/0.5ML(0.5%) NEB SOLN NEB SCH ×6 (02:00→22:01)
[2022-05-11] MEDS: IPRATROPIUM BROM 0.5 MG/2.5ML INH SOL NEB SCH ×6 (02:00→22:01)
[2022-05-11 05:44] LABS: Albumin 2.5 g/dL (3.4-5.0); Anion Gap 11 (5-15); Blood Urea Nitrogen 31 mg/dL (7-18); Calcium 8.9 mg/dL (8.5-10.1); Carbon Dioxide 24 mmol/L (21-32); Chloride 96 mmol/L (98-107); Glucose 98 mg/dL (74-106); Sodium 131 mmol/L (136-145)
[2022-05-11 05:46] LABS: Hemoglobin 10.2 g/dL (12.2-16.2)
[2022-05-11 05:48] LABS: Hematocrit 32.9 % (36.0-46.0); Mean Corpuscular Hemoglobin 22.1 pg (28.0-32.0); Mean Corpuscular Hgb Conc. 31.1 g/dL (32.0-36.0); Mean Corpuscular Volume 70.9 fL (80.0-100.0); Red Blood Cells 4.63 10^6/uL (4.0-5.20); White Blood Cell 9.3 10^3/uL (4.4-10.8)
[2022-05-11 05:50] LABS: Alanine Aminotransferase 19 U/L (13-56); Alkaline Phosphatase 82 U/L (45-117); Aspartate Aminotransferase 18 U/L (15-37); BUN/Creatinine Ratio 25.2; Bilirubin, Total 0.2 mg/dL (0.2-1.0); GFR African American 54 mL/min; GFR Non-African American 45 mL/min; Total Protein 6.7 g/dL (6.4-8.2)
[2022-05-11 06:06] LABS: Basophils % (manual) 0 (0.0-2.0); Blast Cells 0; Metamyelocytes % 0; Promyelocytes % 0; Reactive Lymphocytes 0
[2022-05-11] MEDS: InsuLIN REG 1unit/0.01ml Soln (100units/ml) SC SCH ×4 (07:00→22:00)
[2022-05-11] MEDS: ACCU-CHEK COMFORT CURVE STRIP VI SCH ×4 (07:03→22:00)
[2022-05-11] MEDS: AMIODARONE 450mg/250ml AE 250 ML IV SCH ×2 (07:21→21:00)
[2022-05-11 09:43] LABS: Band Neutrophils % (manual) 12; Lymphocytes % (manual) 20 (10.0-50.0)
[2022-05-11 09:48] LABS: Eosinophils % (manual) 2 (0-7); Monocytes % (manual) 14 (0-12); Myelocytes % 1
[2022-05-11] MEDS ORDERED: ENOXAPARIN SOD 40 MG/0.4 ML SYRINGE SC SCH (10:00)
[2022-05-11] MEDS: SOTALOL HCL 80 MG TAB PO SCH (12:02)
[2022-05-11] MEDS: ASPirin-EC 81 mg tab PO SCH (12:02)
[2022-05-11] MEDS: APIXABAN 2.5 MG TAB PO SCH (12:03)
[2022-05-11] MEDS: LEVOTHYROXINE SODIUM 25 MCG TAB PO SCH (12:03)
[2022-05-11] MEDS: POTASSIUM CHL 20 Meq TABLET PO SCH (12:04)
[2022-05-11] MEDS: FUROSEMIDE 20 MG/2 ML VIAL IV SCH (12:04)
[2022-05-11 13:00] VITALS: BP 125/68
[2022-05-11 17:00] VITALS: BP 144/89
[2022-05-11] MEDS ORDERED: IOHEXOL 350 MG/ML 100ML IJ ONE (18:21)
[2022-05-11 20:00] VITALS: BP 127/68
[2022-05-11 22:00] VITALS: BP 133/64
[2022-05-11] MEDS: ROPINIROLE HYDROCHLORIDE PO SCH (22:00)
[2022-05-12] MEDS: APIXABAN 2.5 MG TAB PO SCH ×3 (00:06→21:42)
[2022-05-12] MEDS: CARBIDOPA W LEVODOPA 10/100mg TABLET PO SCH ×2 (00:07→21:42)
[2022-05-12] MEDS: ALBUTEROL SULF 2.5 MG/0.5ML(0.5%) NEB SOLN NEB SCH ×6 (01:49→22:24)
[2022-05-12] MEDS: IPRATROPIUM BROM 0.5 MG/2.5ML INH SOL NEB SCH ×6 (01:49→22:24)
[2022-05-12] MEDS: InsuLIN REG 1unit/0.01ml Soln (100units/ml) SC SCH ×4 (04:29→21:30)
[2022-05-12] MEDS: ACCU-CHEK COMFORT CURVE STRIP VI SCH ×4 (07:00→21:30)
[2022-05-12 08:00] VITALS: BP 136/67
[2022-05-12] MEDS: LEVOTHYROXINE SODIUM 25 MCG TAB PO SCH (09:44)
[2022-05-12] MEDS: FUROSEMIDE 20 MG/2 ML VIAL IV SCH (09:44)
[2022-05-12] MEDS: ASPirin-EC 81 mg tab PO SCH (09:44)
[2022-05-12] MEDS: POTASSIUM CHL 20 Meq TABLET PO SCH (09:45)
[2022-05-12] MEDS: SOTALOL HCL 80 MG TAB PO SCH (09:46)
[2022-05-12 12:00] VITALS: BP 129/46
[2022-05-12] MEDS: AMIODARONE 450mg/250ml AE 250 ML IV SCH (12:00)
[2022-05-12 16:00] VITALS: BP 139/73
[2022-05-12] MEDS ORDERED: HYDROcodone-ACET 10/325MG TAB PO PRN (16:30)
[2022-05-12 20:00] VITALS: BP 113/78
[2022-05-12] MEDS: traMADol HCL 50 MG TAB PO PRN (20:18)
[2022-05-12] MEDS: guaiFENesin-DM 100/10mg/5ml SYR PO PRN (20:18)
[2022-05-12] MEDS: ROPINIROLE HYDROCHLORIDE PO SCH (21:37)
[2022-05-12 22:00] VITALS: BP 113/78
[2022-05-13] MEDS: guaiFENesin-DM 100/10mg/5ml SYR PO PRN ×3 (01:58→14:19)
[2022-05-13] MEDS: IPRATROPIUM BROM 0.5 MG/2.5ML INH SOL NEB SCH ×4 (02:30→14:46)
[2022-05-13] MEDS: ALBUTEROL SULF 2.5 MG/0.5ML(0.5%) NEB SOLN NEB SCH ×4 (02:30→14:46)
[2022-05-13] MEDS: AMIODARONE 450mg/250ml AE 250 ML IV SCH (03:00)
[2022-05-13 05:00] VITALS: BP 116/71
[2022-05-13] MEDS: ACCU-CHEK COMFORT CURVE STRIP VI SCH ×2 (07:00→11:30)
[2022-05-13] MEDS: InsuLIN REG 1unit/0.01ml Soln (100units/ml) SC SCH ×2 (07:00→11:30)
[2022-05-13 08:00] VITALS: BP 147/75
[2022-05-13 09:00] VITALS: BP 147/75
[2022-05-13 09:05] VITALS: BP 147/67
[2022-05-13] MEDS: ASPirin-EC 81 mg tab PO SCH (09:32)
[2022-05-13] MEDS: SOTALOL HCL 80 MG TAB PO SCH (09:32)
[2022-05-13] MEDS: LEVOTHYROXINE SODIUM 25 MCG TAB PO SCH (09:32)
[2022-05-13] MEDS: APIXABAN 2.5 MG TAB PO SCH (09:33)
[2022-05-13] MEDS: FUROSEMIDE 20 MG/2 ML VIAL IV SCH (09:33)
[2022-05-13] MEDS: POTASSIUM CHL 20 Meq TABLET PO SCH (09:33)
[2022-05-13] MEDS: traMADol HCL 50 MG TAB PO PRN ×2 (10:04→14:19)
[2022-05-13 11:49] VITALS: BP 147/75
[2022-05-13 13:00] VITALS: BP 126/69
== END 2022-05-13 15:25 | disposition home health service (06) | DRG 202 ==
LOC: ER 20:22 → EDBD 20:22 → TELE 05-10 13:48 → TELE-WESTW 05-11 11:43
PROVIDERS: ADMIT Registered Nurse; ATTEND Internal Medicine Cardiovascular Disease
DX: J40 Bronchitis, not specified as acute or chronic (principal); J44.1 Chronic obstructive pulmonary disease with (acute) exacerbation; J98.11 Atelectasis; I11.0 Hypertensive heart disease with heart failure; Z20.822 Contact with and (suspected) exposure to COVID-19; I48.0 Paroxysmal atrial fibrillation; D64.9 Anemia, unspecified; E03.9 Hypothyroidism, unspecified; E11.9 Type 2 diabetes mellitus without complications; E66.01 Morbid (severe) obesity due to excess calories; G25.81 Restless legs syndrome; Z68.33 Body mass index [BMI] 33.0-33.9, adult; Z74.01 Bed confinement status; Z88.0 Allergy status to penicillin; Z88.2 Allergy status to sulfonamides; Z88.6 Allergy status to analgesic agent; Z79.01 Long term (current) use of anticoagulants; Z82.49 Family history of ischemic heart disease and other diseases of the circulatory system; Z95.2 Presence of prosthetic heart valve; I50.9 Heart failure, unspecified
CPT/HCPCS: 36415; 36600; 71045; 71275; 80053; 80061; 81001; 82805; 82962; 83036; 83880; 84443; 84484; 85007; 85025; 85027; 85379; 85610; 85730; 87081; 87426; 87804; 93005; 94640; 96365; 96366; 96375; 99291; G0378; J1815; J2405; J7060

== ENCOUNTER 2022-09-19 10:04 | Emergency (ER) | payer MEDICARE, MEDICAID ==
[2022-09-19] VITALS (8 sets, daily range): BP systolic 130–183; BP diastolic 33–63
[~2022-09-19] VITALS: Ht 175.3 cm; Wt 113.0 kg
[2022-09-19 11:20] LABS: Basophils # (auto) 0.1 10 ^3/uL (0-0.2); Eosinophils # (auto) 0.2 10 ^3/uL (0-0.8); Neutrophils # (auto) 7.4 10 ^3/uL (1.6-8.6)
[2022-09-19 11:23] LABS: Basophils % (auto) 0.9 % (0.0-2.0); Eosinophils % (auto) 2.2 % (0.0-7.0); Hematocrit 21.1 % (36.0-46.0); Lymphocytes # (auto) 1.9 10 ^3/uL (0.4-5.4); Lymphocytes % (auto) 17.9 % (10.0-50.0); Mean Corpuscular Hemoglobin 20.7 pg (28.0-32.0); Mean Corpuscular Hgb Conc. 31.4 g/dL (32.0-36.0); Mean Corpuscular Volume 65.8 fL (80.0-100.0); Monocytes # (auto) 1.1 10 ^3/uL (0-1.3); Monocytes % (auto) 10.4 % (0.0-12.0); Neutrophils % (auto) 68.6 % (37.0-80.0); Red Cell Distribution Width 17.1 % (11.8-14.3); White Blood Cell 10.8 10^3/uL (4.4-10.8)
[2022-09-19 11:33] LABS: Hemoglobin 6.6 g/dL (12.2-16.2)
[2022-09-19 12:11] LABS: Potassium 4.2 mmol/L (3.5-5.1)
[2022-09-19 12:17] LABS: Albumin 2.9 g/dL (3.4-5.0); BUN/Creatinine Ratio 31.1 (10.0-20.0); Bilirubin, Total 0.2 mg/dL (0.2-1.0); Total Protein 6.4 g/dL (6.4-8.2)
[2022-09-19] MEDS ORDERED: ACETAMINOPHEN 325 MG TAB PO ONE (13:00)
[2022-09-19 22:09] LABS: Hemoglobin 9.1 g/dL (12.2-16.2)
[2022-09-19 22:11] LABS: Hematocrit 28.9 % (36.0-46.0)
== END 2022-09-19 23:05 | disposition home or self-care (01) ==
LOC: EDBD 10:04 → ER 10:04
DX: D64.89 Other specified anemias (principal); I13.0 Hypertensive heart and chronic kidney disease with heart failure and stage 1 through stage 4 chronic kidney disease, or unspecified chronic kidney disease; E11.22 Type 2 diabetes mellitus with diabetic chronic kidney disease; N18.9 Chronic kidney disease, unspecified; I50.9 Heart failure, unspecified; E03.9 Hypothyroidism, unspecified; I48.91 Unspecified atrial fibrillation; Z86.2 Personal history of diseases of the blood and blood-forming organs and certain disorders involving the immune mechanism; Z90.89 Acquired absence of other organs; Z79.82 Long term (current) use of aspirin; Z79.899 Other long term (current) drug therapy; Z88.0 Allergy status to penicillin; Z88.2 Allergy status to sulfonamides; Z88.5 Allergy status to narcotic agent; Z88.8 Allergy status to other drugs, medicaments and biological substances; Z91.018 Allergy to other foods
CPT/HCPCS: 36415; 36430; 80053; 85014; 85018; 85025; 86850; 86900; 86901; 86920; 93005; 99291; P9016

== ENCOUNTER → 2022-12-04 | Outpatient (CLI) | payer MEDICARE, MEDICAID, OTHER ==
[~2022-12-04] MED LIST changes: -CARB-79 PO; +[UNRECOGNIZED DRUG - CODE] PO
== END | disposition home or self-care (01) ==
LOC: Rad HDHVI 12:58
PROVIDERS: ATTEND Internal Medicine Cardiovascular Disease
DX: I11.9 Hypertensive heart disease without heart failure (principal); R06.02 Shortness of breath
CPT/HCPCS: 93306

== ENCOUNTER → 2022-12-30 | Outpatient (CLI) | payer MEDICARE, MEDICAID ==
[~2022-12-30] VITALS: Ht 170.2 cm; Wt 99.8 kg
[~2022-12-30] MED LIST changes: +ADENOSINE 84 MG in GIVE UN-DILUTED 0 ML IV ONE; +ADENOSINE 90 MG/30 ML INJ IV ONE
== END | disposition home or self-care (01) ==
LOC: Rad HDHVI 11:47
PROVIDERS: ATTEND Internal Medicine Cardiovascular Disease
DX: I11.0 Hypertensive heart disease with heart failure (principal); I50.33 Acute on chronic diastolic (congestive) heart failure; R07.89 Other chest pain; I48.0 Paroxysmal atrial fibrillation; E78.00 Pure hypercholesterolemia, unspecified; Z82.49 Family history of ischemic heart disease and other diseases of the circulatory system
CPT/HCPCS: 78452; 93005; 96374; 96375; A9500; J0153

== ENCOUNTER → 2022-12-30 | Outpatient (CLI) | payer MEDICARE, MEDICAID ==
[~2022-12-30] MED LIST changes: -ADENOSINE 84 MG in GIVE UN-DILUTED 0 ML IV ONE; -ADENOSINE 90 MG/30 ML INJ IV ONE
[2022-12-30 11:45] LABS: Hemoglobin 8.3 g/dL (12.2-16.2); Lymphocytes # (auto) 2.1 10 ^3/uL (0.4-5.4); Monocytes # (auto) 0.9 10 ^3/uL (0-1.3); Nucleated Red Blood Cells % 0.1 %
[2022-12-30 11:52] LABS: Basophils # (auto) 0.1 10 ^3/uL (0-0.2); Eosinophils # (auto) 0.4 10 ^3/uL (0-0.8); Eosinophils % (auto) 3.7 % (0.0-7.0); Hematocrit 26.1 % (36.0-46.0); Lymphocytes % (auto) 20.2 % (10.0-50.0); Mean Corpuscular Hemoglobin 22.8 pg (28.0-32.0); Mean Corpuscular Hgb Conc. 31.8 g/dL (32.0-36.0); Mean Corpuscular Volume 71.7 fL (80.0-100.0); Monocytes % (auto) 8.4 % (0.0-12.0); Neutrophils # (auto) 6.9 10 ^3/uL (1.6-8.6); Neutrophils % (auto) 66.7 % (37.0-80.0); Red Blood Cells 3.64 10^6/uL (4.0-5.20); Red Cell Distribution Width 19.2 % (11.8-14.3); White Blood Cell 10.4 10^3/uL (4.4-10.8)
== END | disposition home or self-care (01) ==
LOC: XYW 10:37
PROVIDERS: ATTEND Internal Medicine Cardiovascular Disease
DX: I48.0 Paroxysmal atrial fibrillation (principal); E78.00 Pure hypercholesterolemia, unspecified; I10 Essential (primary) hypertension; I31.39 Other pericardial effusion (noninflammatory); R06.02 Shortness of breath; Z82.49 Family history of ischemic heart disease and other diseases of the circulatory system
CPT/HCPCS: 36415; 85025

== ENCOUNTER → 2023-04-08 | Outpatient (CLI) | payer MEDICARE, MEDICAID ==
[~2023-04-08] VITALS: Ht 1 cm; Wt 0.5 kg
[~2023-04-08] MED LIST changes: +LIDOCAINE 1% (LOCAL ANESTH.) PF 5ml SDV ID ONE; +SODIUM CHLOR 0.9% PF (SALINE LOCK) 10ML VIAL/SYR IV SCH
[2023-04-08 11:50] LABS: Basophils # (auto) 0.1 10 ^3/uL (0-0.2); Basophils % (auto) 0.8 % (0.0-2.0); Eosinophils # (auto) 0.3 10 ^3/uL (0-0.8); Hematocrit 24.7 % (36.0-46.0); Neutrophils # (auto) 7.2 10 ^3/uL (1.6-8.6)
[2023-04-08 11:52] LABS: Hemoglobin 7.6 g/dL (12.2-16.2); Lymphocytes # (auto) 1.4 10 ^3/uL (0.4-5.4); Lymphocytes % (auto) 13.8 % (10.0-50.0); Mean Corpuscular Hemoglobin 20.5 pg (28.0-32.0); Mean Corpuscular Hgb Conc. 30.9 g/dL (32.0-36.0); Mean Corpuscular Volume 66.4 fL (80.0-100.0); Monocytes % (auto) 10.1 % (0.0-12.0); Neutrophils % (auto) 72.3 % (37.0-80.0); Red Blood Cells 3.72 10^6/uL (4.0-5.20); Red Cell Distribution Width 17.7 % (11.8-14.3)
[2023-04-08 12:04] LABS: INR 1.07 (0.9-1.15); Partial Thromboplastin Time 26.3 SEC (24.5-34.5); Prothrombin Time 11.2 sec (9.3-11.8)
[2023-04-08 12:11] LABS: Hypochromia Moderate; Platelet Estimate Increased
[2023-04-08 12:12] LABS: Ovalocytes FEW
== END | disposition home or self-care (01) ==
LOC: XYW 11:19
PROVIDERS: ATTEND Internal Medicine Cardiovascular Disease
DX: D64.9 Anemia, unspecified (principal); N39.0 Urinary tract infection, site not specified; I11.0 Hypertensive heart disease with heart failure; I50.9 Heart failure, unspecified; E11.9 Type 2 diabetes mellitus without complications; M19.90 Unspecified osteoarthritis, unspecified site; E07.9 Disorder of thyroid, unspecified; I48.91 Unspecified atrial fibrillation; Z88.0 Allergy status to penicillin; Z45.2 Encounter for adjustment and management of vascular access device; Z88.2 Allergy status to sulfonamides; Z88.8 Allergy status to other drugs, medicaments and biological substances; Z91.018 Allergy to other foods; Z82.49 Family history of ischemic heart disease and other diseases of the circulatory system; Z82.5 Family history of asthma and other chronic lower respiratory diseases; Z80.9 Family history of malignant neoplasm, unspecified; J44.9 Chronic obstructive pulmonary disease, unspecified; Z87.01 Personal history of pneumonia (recurrent); Z79.899 Other long term (current) drug therapy; Z79.51 Long term (current) use of inhaled steroids; Z79.890 Hormone replacement therapy; Z79.82 Long term (current) use of aspirin; Z98.890 Other specified postprocedural states
CPT/HCPCS: 36415; 36569; 71045; 85025; 85610; 85730; C1751; J7050

== ENCOUNTER → 2023-04-09 | Outpatient (CLI) | payer MEDICARE, MEDICAID ==
[~2023-04-09] MED LIST changes: -LIDOCAINE 1% (LOCAL ANESTH.) PF 5ml SDV ID ONE; +MEROPENEM 1GM IVPB 100 ML IV ONE; -SODIUM CHLOR 0.9% PF (SALINE LOCK) 10ML VIAL/SYR IV SCH; +SODIUM FERR GLUC 62.5MG/5ML 125 MG in SODIUM CHL 0.9% 100 ML IV ONE; +SODIUM FERRIC GLUC CPLEX 62.5MG/5ML VIAL IV ONE
[2023-04-09 11:18] VITALS: BP 116/60; PULSE 60; RESP 16; O2SAT 97
[2023-04-09 15:59] VITALS: BP 133/77; PULSE 62; RESP 16; O2SAT 97
== END | disposition home or self-care (01) ==
LOC: CHF HDHVI 11:15
PROVIDERS: ATTEND Internal Medicine Cardiovascular Disease
DX: N39.0 Urinary tract infection, site not specified (principal); D64.9 Anemia, unspecified; J44.9 Chronic obstructive pulmonary disease, unspecified; E07.9 Disorder of thyroid, unspecified; I11.0 Hypertensive heart disease with heart failure; I50.9 Heart failure, unspecified; E11.9 Type 2 diabetes mellitus without complications; I48.91 Unspecified atrial fibrillation; M19.90 Unspecified osteoarthritis, unspecified site; Z88.8 Allergy status to other drugs, medicaments and biological substances; Z88.0 Allergy status to penicillin; Z88.2 Allergy status to sulfonamides; Z91.018 Allergy to other foods; Z79.82 Long term (current) use of aspirin; Z79.51 Long term (current) use of inhaled steroids; Z79.899 Other long term (current) drug therapy
CPT/HCPCS: 96365; 96366; 96367; G0463; J1642; J2185; J2916

== ENCOUNTER → 2023-04-26 | Outpatient (CLI) | payer MEDICARE, MEDICAID ==
[~2023-04-26] VITALS: Ht 30.5 cm; Wt 0.5 kg
[~2023-04-26] MED LIST changes: -MEROPENEM 1GM IVPB 100 ML IV ONE; +MULTIPLE VIT 10 ML IV ONE; +MVI in SODIUM CHLORIDE 0.9% 500 ML IVB ONE
[2023-04-26 12:39] VITALS: BP 128/67; PULSE 78; RESP 18; O2SAT 98
[2023-04-26 15:50] VITALS: BP 99/60; PULSE 66; RESP 18; O2SAT 98
== END | disposition home or self-care (01) ==
LOC: CHF HDHVI 12:15
PROVIDERS: ATTEND Internal Medicine Cardiovascular Disease
DX: E86.0 Dehydration (principal); D64.9 Anemia, unspecified; R53.83 Other fatigue; I11.0 Hypertensive heart disease with heart failure; I50.9 Heart failure, unspecified; I48.0 Paroxysmal atrial fibrillation; J44.9 Chronic obstructive pulmonary disease, unspecified; M19.90 Unspecified osteoarthritis, unspecified site; E11.9 Type 2 diabetes mellitus without complications; Z79.899 Other long term (current) drug therapy; Z79.51 Long term (current) use of inhaled steroids; Z79.82 Long term (current) use of aspirin; Z88.0 Allergy status to penicillin; Z88.2 Allergy status to sulfonamides; Z88.8 Allergy status to other drugs, medicaments and biological substances
CPT/HCPCS: 96365; 96366; 96367; G0463; J1642; J2916; J3411; J3475; J7040; 96360; 96361

== ENCOUNTER → 2023-07-05 | Outpatient (CLI) | payer MEDICARE, MEDICAID ==
[~2023-07-05] MED LIST changes: -MULTIPLE VIT 10 ML IV ONE; -MVI in SODIUM CHLORIDE 0.9% 500 ML IVB ONE; -SODIUM FERR GLUC 62.5MG/5ML 125 MG in SODIUM CHL 0.9% 100 ML IV ONE; -SODIUM FERRIC GLUC CPLEX 62.5MG/5ML VIAL IV ONE; +cefTRIAXone 1GM/50ML D5W 50 ML IV ONE
[2023-07-05 12:15] VITALS: BP 132/74; PULSE 57; RESP 18; O2SAT 98
[2023-07-05] MEDS: MEROPENEM 1GM IVPB 50 ML IV ONE ×2 (12:51→12:54)
[2023-07-05 15:10] VITALS: BP 137/65; PULSE 57; RESP 20; O2SAT 98
== END | disposition home or self-care (01) ==
LOC: CHF HDHVI 12:36
PROVIDERS: ATTEND Internal Medicine Cardiovascular Disease
DX: N39.0 Urinary tract infection, site not specified (principal); I11.0 Hypertensive heart disease with heart failure; I50.9 Heart failure, unspecified; J44.9 Chronic obstructive pulmonary disease, unspecified; E11.9 Type 2 diabetes mellitus without complications; M19.90 Unspecified osteoarthritis, unspecified site; I48.0 Paroxysmal atrial fibrillation; Z79.899 Other long term (current) drug therapy; Z79.82 Long term (current) use of aspirin; Z79.51 Long term (current) use of inhaled steroids; Z88.0 Allergy status to penicillin; Z88.2 Allergy status to sulfonamides; Z88.8 Allergy status to other drugs, medicaments and biological substances
CPT/HCPCS: 96365; 96366; G0463; J1642; J2185

== ENCOUNTER → 2023-08-02 | Outpatient (CLI) | payer MEDICARE, MEDICAID ==
[~2023-08-02] MED LIST changes: -cefTRIAXone 1GM/50ML D5W 50 ML IV ONE
[2023-08-02 11:25] VITALS: BP 130/72; PULSE 97; RESP 18; O2SAT 97
[2023-08-02] MEDS: cefTAZidime 1 GM in SODIUM CHL 0.9% 50 ML IV ONE (11:25)
[2023-08-02] MEDS: VANCOMYCIN 1GM/200ML 200 ML IV ONE ×2 (11:31→11:42)
[2023-08-02] MEDS: cefTAZidime 1GM/50ML D5W 50 ML IV ONE (11:31)
[2023-08-02 16:00] VITALS: BP 152/58; PULSE 50; RESP 18; O2SAT 97
== END | disposition home or self-care (01) ==
LOC: CHF HDHVI 11:26
PROVIDERS: ATTEND Internal Medicine Cardiovascular Disease
DX: N39.0 Urinary tract infection, site not specified (principal); I11.0 Hypertensive heart disease with heart failure; I50.9 Heart failure, unspecified; I48.0 Paroxysmal atrial fibrillation; J44.9 Chronic obstructive pulmonary disease, unspecified; E11.9 Type 2 diabetes mellitus without complications; M19.90 Unspecified osteoarthritis, unspecified site; Z79.82 Long term (current) use of aspirin; Z79.51 Long term (current) use of inhaled steroids; Z79.899 Other long term (current) drug therapy; Z88.0 Allergy status to penicillin; Z88.2 Allergy status to sulfonamides; Z88.8 Allergy status to other drugs, medicaments and biological substances
CPT/HCPCS: 96365; 96366; 96367; G0463; J0713; J1642; J3370

== ENCOUNTER → 2023-09-13 | Outpatient (CLI) | payer MEDICARE, MEDICAID ==
[2023-09-13 11:25] VITALS: BP 146/77; PULSE 68; RESP 20; O2SAT 96
[2023-09-13] MEDS: MEROPENEM 1GM IVPB 50 ML IV ONE ×3 (11:32→12:24)
[2023-09-13 13:51] VITALS: BP 158/72; PULSE 63; RESP 18; O2SAT 96
== END | disposition home or self-care (01) ==
LOC: CHF HDHVI 11:26
PROVIDERS: ATTEND Internal Medicine Cardiovascular Disease
DX: N39.0 Urinary tract infection, site not specified (principal); I11.0 Hypertensive heart disease with heart failure; I50.9 Heart failure, unspecified; J44.9 Chronic obstructive pulmonary disease, unspecified; I48.0 Paroxysmal atrial fibrillation; M19.90 Unspecified osteoarthritis, unspecified site; Z79.51 Long term (current) use of inhaled steroids; Z79.82 Long term (current) use of aspirin; Z79.899 Other long term (current) drug therapy; Z88.0 Allergy status to penicillin; Z88.2 Allergy status to sulfonamides; Z88.8 Allergy status to other drugs, medicaments and biological substances
CPT/HCPCS: 96365; 96366; G0463; J1642; J2185

== ENCOUNTER 2023-09-19 21:02 | Inpatient (IN) | payer MEDICARE, MEDICAID ==
[~2023-09-19] VITALS: Ht 177.8 cm; Wt 100.0 kg
[2023-09-20] VITALS (10 sets, daily range): BP systolic 127–155; BP diastolic 54–67; PULSE 65–80; RESP 14–20; TEMP 97.8–98.7; O2SAT 96–100
[2023-09-20 02:24] LABS: Basophils # (auto) 0.1 10 ^3/uL (0-0.2); Eosinophils # (auto) 0.5 10 ^3/uL (0-0.8); Lymphocytes # (auto) 2.8 10 ^3/uL (0.4-5.4)
[2023-09-20 02:26] LABS: Basophils % (auto) 1.2 % (0.0-2.0); Eosinophils % (auto) 4.3 % (0.0-7.0); Hematocrit 20.6 % (36.0-46.0); Lymphocytes % (auto) 23.1 % (10.0-50.0); Mean Corpuscular Hemoglobin 19.4 pg (28.0-32.0); Mean Corpuscular Volume 64.7 fL (80.0-100.0); Monocytes # (auto) 1.2 10 ^3/uL (0-1.3); Monocytes % (auto) 10.1 % (0.0-12.0); Neutrophils # (auto) 7.4 10 ^3/uL (1.6-8.6); Neutrophils % (auto) 61.3 % (37.0-80.0); Red Blood Cells 3.18 10^6/uL (4.0-5.20); Red Cell Distribution Width 19.7 % (11.8-14.3); White Blood Cell 12.1 10^3/uL (4.4-10.8)
[2023-09-20 02:29] LABS: Chloride 102 mmol/L (98-107); Potassium 3.8 mmol/L (3.5-5.1); Sodium 131 mmol/L (136-145)
[2023-09-20 02:30] LABS: Anion Gap 4 (5-15); Calcium 9.2 mg/dL (8.7-10.4); Carbon Dioxide 25 mmol/L (20-30)
[2023-09-20 02:35] LABS: BUN/Creatinine Ratio 41.5 (10.0-20.0); Blood Urea Nitrogen 34 mg/dL (9-23); Glucose 89 mg/dL (74-106)
[2023-09-20 02:40] LABS: INR 1.03 (0.9-1.15); Partial Thromboplastin Time 26.3 SEC (24.5-34.5); Prothrombin Time 10.9 sec (9.3-11.8)
[2023-09-20 02:41] LABS: Hemoglobin 6.2 g/dL (12.2-16.2)
[2023-09-20 04:43] LABS: Hypochromia Moderate; Ovalocytes FEW; Platelet Estimate Adequate; Stomatocytes Few
[2023-09-20] MEDS: traMADol HCL 50 MG TAB PO ONE (05:05)
[2023-09-20 07:35] LABS: Urine Bacteria FEW /hpf (None Seen); Urine Blood 3+ /uL (Negative); Urine Clarity Clear (Clear); Urine Color Light-Red (Yellow); Urine Protein, UAD 2+ (Negative); Urine Specific Gravity 1.004 (1.001-1.035); Urine Urobilinogen Normal (Negative); Urine WBC 6 /hpf (0 - 5); Urine pH 6.5 (5.0-9.0)
[2023-09-20] MEDS ORDERED: MORPHINE SULFATE INJ 2 MG/ml SYRG IV PRN (10:00)
[2023-09-20] MEDS ORDERED: DOCUSATE SOD 100 MG CAP PO PRN (10:00)
[2023-09-20] MEDS: FUROSEMIDE 20 MG/2 ML VIAL IV ONE (10:00)
[2023-09-20] MEDS ORDERED: ONDANSETRON HCL 4 MG/2 ML VIAL IV PRN (10:00)
[2023-09-20] MEDS ORDERED: DEXTROSE (50%) 50ML SYRG IV PRN (10:00)
[2023-09-20] MEDS: POLYETHYLENE GLYCOL 17 GM PWDR PO ONE (10:30)
[2023-09-20] MEDS: levoFLOXacin 500MG 100 ML IV ONE (10:58)
[2023-09-20] MEDS: SOTALOL HCL 80 MG TAB PO SCH (10:59)
[2023-09-20] MEDS: LEVOTHYROXINE SODIUM 50 MCG TAB PO SCH (11:00)
[2023-09-20] MEDS: FUROSEMIDE 20 MG/2 ML VIAL IV SCH (11:01)
[2023-09-20] MEDS: ACCU-CHEK COMFORT CURVE STRIP VI SCH (11:39)
[2023-09-20] MEDS: InsuLIN REG 1unit/0.01ml Soln (100units/ml) SC SCH (11:40)
[2023-09-20 12:05] LABS: Hematocrit 29.1 % (36.0-46.0); Hemoglobin 9.2 g/dL (12.2-16.2)
[2023-09-20] MEDS ORDERED: CARBIDOPA W LEVODOPA 10/100mg TABLET PO SCH (14:00)
[2023-09-20 18:17] LABS: Hematocrit 30.1 % (36.0-46.0); Hemoglobin 9.6 g/dL (12.2-16.2)
[2023-09-20] MEDS: traMADol HCL 50 MG TAB PO PRN (20:21)
[2023-09-20] MEDS: ROPINIROLE HYDROCHLORIDE PO SCH (22:28)
[2023-09-20] MEDS: CARBIDOPA W LEVODOPA 10/100mg TABLET PO SCH (22:28)
[2023-09-21 00:47] LABS: Hemoglobin 8.9 g/dL (12.2-16.2)
[2023-09-21 01:05] VITALS: BP 129/70; PULSE 66; RESP 20; O2SAT 95
[2023-09-21 05:00] VITALS: BP 133/89; PULSE 59; RESP 20; TEMP 97.9; O2SAT 100
[2023-09-21 06:47] LABS: Basophils # (auto) 0.1 10 ^3/uL (0-0.2); Red Blood Cells 4.02 10^6/uL (4.0-5.20)
[2023-09-21 06:50] LABS: Eosinophils # (auto) 0.6 10 ^3/uL (0-0.8); Eosinophils % (auto) 5.9 % (0.0-7.0); Hematocrit 28.5 % (36.0-46.0); Hemoglobin 9.1 g/dL (12.2-16.2); Lymphocytes % (auto) 21.1 % (10.0-50.0); Mean Corpuscular Hemoglobin 22.5 pg (28.0-32.0); Mean Corpuscular Hgb Conc. 31.7 g/dL (32.0-36.0); Monocytes # (auto) 1.1 10 ^3/uL (0-1.3); Monocytes % (auto) 11.5 % (0.0-12.0); Neutrophils # (auto) 5.7 10 ^3/uL (1.6-8.6); Neutrophils % (auto) 60.5 % (37.0-80.0); White Blood Cell 9.5 10^3/uL (4.4-10.8)
[2023-09-21 06:53] LABS: Albumin 3.3 g/dL (3.2-4.8); Alkaline Phosphatase 70 U/L (46-116); Anion Gap 3 (5-15); Aspartate Aminotransferase 17 U/L (13-40); BUN/Creatinine Ratio 31.2 (10.0-20.0); Calcium 9.1 mg/dL (8.5-10.1); Carbon Dioxide 28 mmol/L (20-30); Chloride 103 mmol/L (98-107); Cholesterol 147 mg/dL (< 200); Glucose 84 mg/dL (74-106); LDL Cholesterol 81 mg/dL (< 100); Potassium 3.8 mmol/L (3.5-5.1); Sodium 134 mmol/L (136-145); Triglycerides 86 mg/dL (< 150)
[2023-09-21 06:54] LABS: Bilirubin, Total 0.4 mg/dL (0.2-1.0); HDL Cholesterol 49 mg/dL (40-59); Total Protein 5.9 g/dL (5.7-8.2)
[2023-09-21 07:07] LABS: Hematocrit 27.9 % (36.0-46.0); Hemoglobin 8.9 g/dL (12.2-16.2)
[2023-09-21 07:12] LABS: Alanine Aminotransferase < 9 U/L (7-40); Blood Urea Nitrogen 24 mg/dL (9-23)
[2023-09-21] MEDS: levoFLOXacin 500MG 100 ML IV SCH (09:09)
[2023-09-21] MEDS: POLYETHYLENE GLYCOL 17 GM PWDR PO SCH (09:10)
[2023-09-21 09:49] LABS: Magnesium 2.2 mg/dL (1.6-2.6)
[2023-09-21] MEDS: PANTOPRAZOLE 40 MG TAB PO ONE (13:53)
[2023-09-21] MEDS: POTASSIUM CHL 10 Meq TABLET PO SCH (13:54)
[2023-09-21] MEDS: FUROSEMIDE 20 MG TAB PO SCH (13:55)
[2023-09-21 16:30] VITALS: BP 128/69; PULSE 77; RESP 20; TEMP 97.6; O2SAT 100
[2023-09-21 20:00] VITALS: BP 115/73; PULSE 72; RESP 18; TEMP 97.9; O2SAT 95
[2023-09-21 21:49] VITALS: BP 108/64; PULSE 81; RESP 17; TEMP 97.9; O2SAT 93
[2023-09-22] VITALS (8 sets, daily range): BP systolic 104–141; BP diastolic 48–68; PULSE 60–85; RESP 14–22; TEMP 97.7–98; O2SAT 92–100
[2023-09-22] MEDS: LEVOTHYROXINE SODIUM 25 MCG TAB PO SCH (06:19)
[2023-09-22 07:09] LABS: Chloride 101 mmol/L (98-107); Potassium 3.7 mmol/L (3.5-5.1); Sodium 134 mmol/L (136-145)
[2023-09-22 07:10] LABS: Anion Gap 5 (5-15); Calcium 9.1 mg/dL (8.5-10.1); Carbon Dioxide 28 mmol/L (20-30)
[2023-09-22 07:15] LABS: BUN/Creatinine Ratio 26.3 (10.0-20.0); Blood Urea Nitrogen 30 mg/dL (9-23); Glucose 86 mg/dL (74-106)
[2023-09-22 07:23] LABS: Eosinophils # (auto) 0.5 10 ^3/uL (0-0.8); Monocytes # (auto) 1.1 10 ^3/uL (0-1.3); White Blood Cell 11.4 10^3/uL (4.4-10.8)
[2023-09-22 07:26] LABS: Basophils # (auto) 0.1 10 ^3/uL (0-0.2); Basophils % (auto) 1.1 % (0.0-2.0); Eosinophils % (auto) 4.3 % (0.0-7.0); Hematocrit 28.8 % (36.0-46.0); Lymphocytes # (auto) 2.3 10 ^3/uL (0.4-5.4); Lymphocytes % (auto) 20.5 % (10.0-50.0); Mean Corpuscular Hemoglobin 22.3 pg (28.0-32.0); Mean Corpuscular Hgb Conc. 31.4 g/dL (32.0-36.0); Mean Corpuscular Volume 70.9 fL (80.0-100.0); Monocytes % (auto) 9.9 % (0.0-12.0); Neutrophils # (auto) 7.3 10 ^3/uL (1.6-8.6); Neutrophils % (auto) 64.2 % (37.0-80.0); Red Blood Cells 4.06 10^6/uL (4.0-5.20)
[2023-09-22 07:28] LABS: Red Cell Distribution Width 24.5 % (11.8-14.3)
[2023-09-22] MEDS: PANTOPRAZOLE 40 MG TAB PO SCH (10:51)
[2023-09-22] MEDS: IRON SUCROSE COMPLEX 100 ML IV SCH (13:00)
[2023-09-22] MEDS: ERTAPENEM SOD INJ 1 GM in SODIUM CHL 0.9% 50 ML IV SCH (14:31)
[2023-09-22] MEDS: FLUTICASONE PROP NASAL SPR 0.05 % (50MCG) 16GM EACHNOSTRI SCH (21:29)
[2023-09-22] MEDS: FLUTICASONE PROP 50 MCG SPRAY SCH (21:29)
[2023-09-22] MEDS: CLOTRIMAZOLE TOP SCH (22:00)
[2023-09-22] MEDS: BETAMETHASONE TOP SCH (22:00)
[2023-09-23] VITALS (7 sets, daily range): BP systolic 115–137; BP diastolic 48–106; PULSE 60–85; RESP 16–20; TEMP 97.9–98.6; O2SAT 96–100
[2023-09-23 05:47] LABS: Basophils # (auto) 0.1 10 ^3/uL (0-0.2); Basophils % (auto) 0.8 % (0.0-2.0); Eosinophils # (auto) 0.5 10 ^3/uL (0-0.8); Hematocrit 27.7 % (36.0-46.0); Hemoglobin 8.6 g/dL (12.2-16.2); Lymphocytes # (auto) 1.9 10 ^3/uL (0.4-5.4); Mean Corpuscular Hemoglobin 22.1 pg (28.0-32.0); Mean Corpuscular Volume 71.4 fL (80.0-100.0); Monocytes # (auto) 1.2 10 ^3/uL (0-1.3); Neutrophils % (auto) 62.2 % (37.0-80.0); Nucleated Red Blood Cells % 0.1 %; Red Blood Cells 3.88 10^6/uL (4.0-5.20); Red Cell Distribution Width 24.4 % (11.8-14.3); White Blood Cell 9.7 10^3/uL (4.4-10.8)
[2023-09-23 06:02] LABS: Anion Gap 3 (5-15); Calcium 9.1 mg/dL (8.5-10.1); Carbon Dioxide 29 mmol/L (20-30); Chloride 103 mmol/L (98-107); Potassium 3.6 mmol/L (3.5-5.1); Sodium 135 mmol/L (136-145)
[2023-09-23 06:08] LABS: BUN/Creatinine Ratio 31.5 (10.0-20.0); Blood Urea Nitrogen 34 mg/dL (9-23); Glucose 87 mg/dL (74-106)
[2023-09-24] VITALS (7 sets, daily range): BP systolic 130–137; BP diastolic 47–71; PULSE 58–73; RESP 17–19; TEMP 97.5–98.6; O2SAT 96–98
[2023-09-24 06:23] LABS: Basophils # (auto) 0.1 10 ^3/uL (0-0.2); Basophils % (auto) 0.9 % (0.0-2.0); Eosinophils # (auto) 0.5 10 ^3/uL (0-0.8); Eosinophils % (auto) 5.4 % (0.0-7.0); Hematocrit 25.9 % (36.0-46.0); Hemoglobin 8.3 g/dL (12.2-16.2); Lymphocytes # (auto) 1.6 10 ^3/uL (0.4-5.4); Mean Corpuscular Hgb Conc. 32.2 g/dL (32.0-36.0); Mean Corpuscular Volume 71.3 fL (80.0-100.0); Neutrophils # (auto) 5.9 10 ^3/uL (1.6-8.6); Neutrophils % (auto) 64.7 % (37.0-80.0); Red Blood Cells 3.63 10^6/uL (4.0-5.20); White Blood Cell 9.1 10^3/uL (4.4-10.8)
[2023-09-24] MEDS: NYSTATIN TOPICAL POWDER 15GM TOP SCH (22:00)
[2023-09-24] MEDS: DOCUSATE SOD 100 MG CAP PO SCH (22:23)
[2023-09-25] VITALS (7 sets, daily range): BP systolic 96–153; BP diastolic 51–86; PULSE 57–81; RESP 19–21; TEMP 97.4–97.9; O2SAT 96–100
[2023-09-26] VITALS (8 sets, daily range): BP systolic 127–154; BP diastolic 56–71; PULSE 59–88; RESP 17–22; TEMP 97.4–98.3; O2SAT 98–99
[2023-09-26 06:51] LABS: Basophils # (auto) 0.1 10 ^3/uL (0-0.2); Basophils % (auto) 0.9 % (0.0-2.0); Eosinophils # (auto) 0.5 10 ^3/uL (0-0.8); Hemoglobin 8.2 g/dL (12.2-16.2); Lymphocytes # (auto) 1.6 10 ^3/uL (0.4-5.4)
[2023-09-26 06:55] LABS: Hematocrit 25.7 % (36.0-46.0); Lymphocytes % (auto) 17.9 % (10.0-50.0); Mean Corpuscular Hemoglobin 23.3 pg (28.0-32.0); Mean Corpuscular Volume 72.9 fL (80.0-100.0); Monocytes # (auto) 1.1 10 ^3/uL (0-1.3); Monocytes % (auto) 11.7 % (0.0-12.0); Neutrophils # (auto) 5.9 10 ^3/uL (1.6-8.6); Neutrophils % (auto) 64.5 % (37.0-80.0); Red Blood Cells 3.52 10^6/uL (4.0-5.20); Red Cell Distribution Width 25.2 % (11.8-14.3); White Blood Cell 9.1 10^3/uL (4.4-10.8)
[2023-09-26 06:58] LABS: Chloride 106 mmol/L (98-107); Potassium 4.4 mmol/L (3.5-5.1); Sodium 136 mmol/L (136-145)
[2023-09-26 06:59] LABS: Anion Gap 2 (5-15); Carbon Dioxide 28 mmol/L (20-30)
[2023-09-26 07:00] LABS: Calcium 9.1 mg/dL (8.5-10.1)
[2023-09-26 07:05] LABS: BUN/Creatinine Ratio 31.6 (10.0-20.0); Blood Urea Nitrogen 25 mg/dL (9-23); Glucose 79 mg/dL (74-106)
[2023-09-26] MEDS: BISACODYL 10 MG RECT SUPP PR ONE (11:00)
[2023-09-26] MEDS: FLEET ENEMA(ADULT) 135 ML PR ONE (19:27)
[2023-09-26 21:41] LABS: INR 1.01 (0.9-1.15); Partial Thromboplastin Time 30.8 SEC (24.5-34.5); Prothrombin Time 10.7 sec (9.3-11.8)
[2023-09-27] VITALS (11 sets, daily range): BP systolic 118–163; BP diastolic 54–89; PULSE 53–77; RESP 13–21; TEMP 97–97.9; O2SAT 97–100
[2023-09-27] MEDS ORDERED: CIPROFLOXACIN 400MG/200ML 200 ML IV ONE (12:35)
[2023-09-27] MEDS ORDERED: IOHEXOL 300 MG/ML 100ML BOTTLE IJ ONE (12:57)
[2023-09-27] MEDS ORDERED: fentaNYL CITRATE 100 MCG/2 ML VL ONE (13:00)
[2023-09-27] MEDS ORDERED: PROPOFOL 10 MG/ML 20 ML IV ONE (13:02)
[2023-09-27] MEDS ORDERED: ePHEDrine SULFATE 50 MG/ML AMP ONE (13:28)
[2023-09-27] MEDS ORDERED: ONDANSETRON HCL 4 MG/2 ML VIAL IV ONE (14:15)
[2023-09-27] MEDS: cloNIDine HCL 0.1 MG TAB PO PRN (21:53)
[2023-09-28 05:02] VITALS: BP 121/62; PULSE 62; RESP 18; TEMP 97.3; O2SAT 97
[2023-09-28 07:19] LABS: Anion Gap 3 (5-15); Calcium 9.2 mg/dL (8.5-10.1); Carbon Dioxide 25 mmol/L (20-30); Chloride 106 mmol/L (98-107); Potassium 4.3 mmol/L (3.5-5.1); Sodium 134 mmol/L (136-145)
[2023-09-28 07:25] LABS: BUN/Creatinine Ratio 20.3 (10.0-20.0); Blood Urea Nitrogen 15 mg/dL (9-23); Glucose 81 mg/dL (74-106)
[2023-09-28 07:37] LABS: Basophils # (auto) 0.1 10 ^3/uL (0-0.2); Basophils % (auto) 0.6 % (0.0-2.0); Eosinophils # (auto) 0.5 10 ^3/uL (0-0.8); Eosinophils % (auto) 4.4 % (0.0-7.0); Hematocrit 31.2 % (36.0-46.0); Hemoglobin 9.2 g/dL (12.2-16.2); Lymphocytes # (auto) 1.6 10 ^3/uL (0.4-5.4); Mean Corpuscular Hemoglobin 22.8 pg (28.0-32.0); Mean Corpuscular Hgb Conc. 29.6 g/dL (32.0-36.0); Mean Corpuscular Volume 77.1 fL (80.0-100.0); Monocytes % (auto) 8.7 % (0.0-12.0); Neutrophils % (auto) 72.3 % (37.0-80.0); Nucleated Red Blood Cells % 0.1 %; Red Blood Cells 4.05 10^6/uL (4.0-5.20); White Blood Cell 11.1 10^3/uL (4.4-10.8)
[2023-09-28 07:41] LABS: Red Cell Distribution Width 26.7 % (11.8-14.3)
[2023-09-28 08:00] VITALS: BP 118/58; PULSE 54; PULSE 55; RESP 17; TEMP 97.4; O2SAT 100
[2023-09-28 09:00] VITALS: BP 118/58; PULSE 55; RESP 17; TEMP 97.4; O2SAT 100
[2023-09-28 13:00] VITALS: BP 116/53; PULSE 56; RESP 16; TEMP 97.3; O2SAT 100
[2023-09-28 13:19] VITALS: BP 116/53; PULSE 56; RESP 16; TEMP 97.3; O2SAT 100
== END 2023-09-28 14:48 | disposition home health service (06) | DRG 659 ==
LOC: ER 21:02 → EDBD 21:02 → TELE 09-20 10:06 → TELE-CENTR 09-20 23:37
PROVIDERS: ADMIT Nurse Practitioner Family; ATTEND Internal Medicine
PROC: 30233N1 Transfusion of Nonautologous Red Blood Cells into Peripheral Vein, Percutaneous Approach (ICD-10-PCS; principal; 2023-09-20)
PROC: 0T778DZ Dilation of Left Ureter with Intraluminal Device, Via Natural or Artificial Opening Endoscopic (ICD-10-PCS; 2023-09-27)
PROC: BT1F1ZZ Fluoroscopy of Left Kidney, Ureter and Bladder using Low Osmolar Contrast (ICD-10-PCS; 2023-09-27)
PROC: 0TF4XZZ Fragmentation in Left Kidney Pelvis, External Approach (ICD-10-PCS; 2023-09-27 13:01)
DX: N13.6 Pyonephrosis (principal); R53.2 Functional quadriplegia; D62 Acute posthemorrhagic anemia; E87.1 Hypo-osmolality and hyponatremia; I13.0 Hypertensive heart and chronic kidney disease with heart failure and stage 1 through stage 4 chronic kidney disease, or unspecified chronic kidney disease; I48.20 Chronic atrial fibrillation, unspecified; I50.42 Chronic combined systolic (congestive) and diastolic (congestive) heart failure; N18.4 Chronic kidney disease, stage 4 (severe); R31.0 Gross hematuria; Q63.1 Lobulated, fused and horseshoe kidney; G25.81 Restless legs syndrome; E11.22 Type 2 diabetes mellitus with diabetic chronic kidney disease; E66.01 Morbid (severe) obesity due to excess calories; K40.90 Unilateral inguinal hernia, without obstruction or gangrene, not specified as recurrent; N93.9 Abnormal uterine and vaginal bleeding, unspecified; K44.9 Diaphragmatic hernia without obstruction or gangrene; J44.9 Chronic obstructive pulmonary disease, unspecified; I35.0 Nonrheumatic aortic (valve) stenosis; E03.9 Hypothyroidism, unspecified; D50.9 Iron deficiency anemia, unspecified; K56.41 Fecal impaction; Z74.01 Bed confinement status; Z95.2 Presence of prosthetic heart valve; Z87.442 Personal history of urinary calculi; Z87.440 Personal history of urinary (tract) infections; Z82.49 Family history of ischemic heart disease and other diseases of the circulatory system; Z79.82 Long term (current) use of aspirin; Z79.01 Long term (current) use of anticoagulants; Z82.5 Family history of asthma and other chronic lower respiratory diseases; Z68.31 Body mass index [BMI] 31.0-31.9, adult
CPT/HCPCS: 62351; 62361; 99285; C1891; 36415; 36430; 71045; 74176; 80048; 80053; 80061; 81001; 82962; 83036; 83735; 84132; 84439; 84443; 85014; 85018; 85025; 85610; 85730; 86850; 86900; 86901; 86920; 87086; 93005; 93306; G0378; J1335; J1756; J1956; J2704

== ENCOUNTER → 2023-10-25 | Outpatient (CLI) | payer MEDICARE, MEDICAID ==
[~2023-10-25] VITALS: Ht 30.5 cm; Wt 0.5 kg
[~2023-10-25] MED LIST changes: +APIX5TAB PO; +CYCL-839 PO; +ESOM40CA83 PO; +FURO40TA4 PO; +LEVO750T40 PO; +NITR-52 PO
[2023-10-25 15:28] VITALS: BP_SYST 122; BP_SYST 97; BP_DIAS 49; BP_DIAS 78; PULSE 52; PULSE 68; RESP 18; O2SAT 99
[2023-10-25] MEDS: MEROPENEM 1GM IVPB 50 ML IV ONE ×4 (15:30→16:00)
== END | disposition home or self-care (01) ==
LOC: CHF HDHVI 15:28
PROVIDERS: ATTEND Internal Medicine Cardiovascular Disease
DX: N39.0 Urinary tract infection, site not specified (principal); I13.0 Hypertensive heart and chronic kidney disease with heart failure and stage 1 through stage 4 chronic kidney disease, or unspecified chronic kidney disease; E11.22 Type 2 diabetes mellitus with diabetic chronic kidney disease; N18.4 Chronic kidney disease, stage 4 (severe); I50.42 Chronic combined systolic (congestive) and diastolic (congestive) heart failure; J44.9 Chronic obstructive pulmonary disease, unspecified; E03.9 Hypothyroidism, unspecified; I48.20 Chronic atrial fibrillation, unspecified; E66.01 Morbid (severe) obesity due to excess calories; Z68.38 Body mass index [BMI] 38.0-38.9, adult; Z86.718 Personal history of other venous thrombosis and embolism; Z79.4 Long term (current) use of insulin; Z79.82 Long term (current) use of aspirin; Z88.5 Allergy status to narcotic agent; Z79.01 Long term (current) use of anticoagulants; Z79.899 Other long term (current) drug therapy; Z88.1 Allergy status to other antibiotic agents; Z88.0 Allergy status to penicillin; Z88.2 Allergy status to sulfonamides
CPT/HCPCS: 96365; 96366; G0463; J1642; J2185

== ENCOUNTER 2023-10-30 12:49 | Inpatient (IN) | payer MEDICARE, MEDICAID ==
[~2023-10-30] VITALS: Ht 170.2 cm; Wt 98.0 kg
[~2023-10-30 12:49] MED LIST changes: -APIX5TAB PO; -CYCL-839 PO; -ESOM40CA83 PO; -FURO40TA4 PO; -NITR-52 PO
[2023-10-30] MEDS: levoFLOXacin 500MG 100 ML IV ONE (15:53)
[2023-10-30 21:30] VITALS: RESP 18; O2SAT 99
[2023-10-30] MEDS ORDERED: HYDROcodone-ACET 5/325MG TAB PO PRN (22:45)
[2023-10-30] MEDS ORDERED: ONDANSETRON HCL 4 MG/2 ML VIAL IV PRN (22:45)
[2023-10-30] MEDS ORDERED: ACETAMINOPHEN 325 MG TAB PO PRN (22:45)
[2023-10-30] MEDS ORDERED: DEXTROSE (50%) 50ML SYRG IV PRN (22:45)
[2023-10-30] MEDS ORDERED: DOCUSATE SOD 100 MG CAP PO PRN (22:45)
[2023-10-30] MEDS: traMADol HCL 50 MG TAB PO ONE (23:19)
[2023-10-30] MEDS ORDERED: NITROGLYCERIN 0.4 MG SL TAB SL PRN (23:45)
[2023-10-30] MEDS ORDERED: MORPHINE SULFATE INJ 2 MG/ml SYRG IV PRN (23:45)
[2023-10-31 01:57] LABS: Basophils # (auto) 0.1 10 ^3/uL (0-0.2); Basophils % (auto) 0.6 % (0.0-2.0); Eosinophils # (auto) 0.7 10 ^3/uL (0-0.8); Eosinophils % (auto) 5.5 % (0.0-7.0); Hematocrit 33.4 % (36.0-46.0); Hemoglobin 10.8 g/dL (12.2-16.2); Lymphocytes # (auto) 1.7 10 ^3/uL (0.4-5.4); Mean Corpuscular Hemoglobin 25.6 pg (28.0-32.0); Mean Corpuscular Hgb Conc. 32.4 g/dL (32.0-36.0); Mean Corpuscular Volume 79.1 fL (80.0-100.0); Monocytes # (auto) 1.2 10 ^3/uL (0-1.3); Monocytes % (auto) 10.1 % (0.0-12.0); Neutrophils # (auto) 8.4 10 ^3/uL (1.6-8.6); Neutrophils % (auto) 69.8 % (37.0-80.0); Red Blood Cells 4.23 10^6/uL (4.0-5.20); White Blood Cell 12.1 10^3/uL (4.4-10.8)
[2023-10-31 01:58] LABS: Red Cell Distribution Width 28.1 % (11.8-14.3)
[2023-10-31 02:13] LABS: Alanine Aminotransferase 10 U/L (7-40); Albumin 3.3 g/dL (3.2-4.8); Alkaline Phosphatase 73 U/L (46-116); Anion Gap 7 (5-15); Aspartate Aminotransferase 16 U/L (13-40); BUN/Creatinine Ratio 36.5 (10.0-20.0); Bilirubin, Total 0.3 mg/dL (0.2-1.0); Blood Urea Nitrogen 27 mg/dL (9-23); Calcium 9.5 mg/dL (8.7-10.4); Carbon Dioxide 25 mmol/L (20-30); Chloride 103 mmol/L (98-107); Glucose 77 mg/dL (74-106); Potassium 3.8 mmol/L (3.5-5.1); Sodium 135 mmol/L (136-145)
[2023-10-31 03:26] LABS: Anisocytosis Moderate; Platelet Estimate Adequate
[2023-10-31] MEDS: SODIUM CHLOR 0.9% PF (SALINE LOCK) 10ML VIAL/SYR IV SCH (06:06)
[2023-10-31] MEDS: InsuLIN REG 1unit/0.01ml Soln (100units/ml) SC SCH (06:06)
[2023-10-31] MEDS: LEVOTHYROXINE SODIUM 25 MCG TAB PO SCH (06:06)
[2023-10-31] MEDS: ACCU-CHEK COMFORT CURVE STRIP VI SCH (06:07)
[2023-10-31 06:56] LABS: Urine Bacteria FEW /hpf (None Seen); Urine Blood 3+ /uL (Negative); Urine Clarity Turbid (Clear); Urine Color Colorless (Yellow); Urine Hyaline Cast FEW /lpf (0 - 2); Urine Protein, UAD 1+ (Negative); Urine Specific Gravity 1.003 (1.001-1.035); Urine Urobilinogen Normal (Negative); Urine WBC 181 /hpf (0 - 5); Urine WBC Clumps PRESENT /hpf (None Seen); Urine pH 7.5 (5.0-9.0)
[2023-10-31 07:22] LABS: Basophils # (auto) 0.1 10 ^3/uL (0-0.2); Basophils % (auto) 0.9 % (0.0-2.0); Eosinophils # (auto) 0.8 10 ^3/uL (0-0.8); Lymphocytes # (auto) 1.8 10 ^3/uL (0.4-5.4); Mean Corpuscular Volume 78.6 fL (80.0-100.0)
[2023-10-31 07:26] LABS: Hematocrit 32.9 % (36.0-46.0); Hemoglobin 10.9 g/dL (12.2-16.2); Lymphocytes % (auto) 13.7 % (10.0-50.0); Mean Corpuscular Hemoglobin 26.1 pg (28.0-32.0); Mean Corpuscular Hgb Conc. 33.2 g/dL (32.0-36.0); Monocytes # (auto) 1.3 10 ^3/uL (0-1.3); Monocytes % (auto) 9.8 % (0.0-12.0); Neutrophils # (auto) 9.4 10 ^3/uL (1.6-8.6); Neutrophils % (auto) 69.6 % (37.0-80.0); Red Blood Cells 4.19 10^6/uL (4.0-5.20); White Blood Cell 13.5 10^3/uL (4.4-10.8)
[2023-10-31 07:30] VITALS: PULSE 51; RESP 18; O2SAT 99
[2023-10-31 07:32] LABS: Red Cell Distribution Width 27.8 % (11.8-14.3)
[2023-10-31 07:34] LABS: Alanine Aminotransferase 11 U/L (7-40); Alkaline Phosphatase 76 U/L (46-116); Anion Gap 0 (5-15); BUN/Creatinine Ratio 36.6 (10.0-20.0); Blood Urea Nitrogen 26 mg/dL (9-23); Calcium 9.4 mg/dL (8.5-10.1); Carbon Dioxide 31 mmol/L (20-30); Chloride 104 mmol/L (98-107); Glucose 71 mg/dL (74-106); Potassium 3.8 mmol/L (3.5-5.1); Sodium 135 mmol/L (136-145)
[2023-10-31 07:35] LABS: Albumin 3.4 g/dL (3.2-4.8); Aspartate Aminotransferase 19 U/L (13-40); Bilirubin, Total 0.3 mg/dL (0.2-1.0)
[2023-10-31 08:37] LABS: Anisocytosis Slight; Platelet Estimate Adequate
[2023-10-31] MEDS: MULTIPLE VITAMIN TAB PO SCH (09:48)
[2023-10-31] MEDS: APIXABAN 2.5 MG TAB PO SCH (09:51)
[2023-10-31] MEDS: FAMOTIDINE (10MG/ML) 2ML VL IV SCH (09:51)
[2023-10-31] MEDS: traMADol HCL 50 MG TAB PO PRN (13:12)
[2023-10-31] MEDS: levoFLOXacin 500MG 100 ML IV SCH (15:18)
[2023-10-31 19:30] VITALS: PULSE 62; RESP 13; O2SAT 98
[2023-11-01 07:59] VITALS: PULSE 78; RESP 15; O2SAT 96
[2023-11-01 13:06] VITALS: BP 151/71; PULSE 55; RESP 16; TEMP 97.6; O2SAT 98
[2023-11-01 16:08] VITALS: BP 146/50; PULSE 56; RESP 17; TEMP 97.7; O2SAT 97
[2023-11-01] MEDS: ERTAPENEM SOD INJ 1 GM in SODIUM CHL 0.9% 50 ML IV ONE (16:35)
[2023-11-01 20:00] VITALS: PULSE 71
[2023-11-01 21:00] VITALS: BP 132/51; PULSE 63; RESP 20; TEMP 97.6; O2SAT 98
[2023-11-01] MEDS: SOTALOL HCL 80 MG TAB PO ONE (21:13)
[2023-11-02] VITALS (7 sets, daily range): BP systolic 88–118; BP diastolic 41–91; PULSE 63–115; RESP 16–20; TEMP 97.5–97.9; O2SAT 98–100
[2023-11-02 06:58] LABS: Eosinophils # (auto) 0.7 10 ^3/uL (0-0.8); Hematocrit 33.7 % (36.0-46.0); Hemoglobin 11.1 g/dL (12.2-16.2); Monocytes # (auto) 1.1 10 ^3/uL (0-1.3); Monocytes % (auto) 9.6 % (0.0-12.0); Red Blood Cells 4.26 10^6/uL (4.0-5.20)
[2023-11-02 07:00] LABS: Basophils # (auto) 0.2 10 ^3/uL (0-0.2); Basophils % (auto) 1.4 % (0.0-2.0); Eosinophils % (auto) 6.7 % (0.0-7.0); Lymphocytes # (auto) 1.9 10 ^3/uL (0.4-5.4); Lymphocytes % (auto) 17.1 % (10.0-50.0); Mean Corpuscular Hgb Conc. 32.9 g/dL (32.0-36.0); Mean Corpuscular Volume 79.1 fL (80.0-100.0); Neutrophils # (auto) 7.3 10 ^3/uL (1.6-8.6); Neutrophils % (auto) 65.2 % (37.0-80.0); Red Cell Distribution Width 27.3 % (11.8-14.3); White Blood Cell 11.3 10^3/uL (4.4-10.8)
[2023-11-02 07:10] LABS: INR 1.05 (0.9-1.15); Partial Thromboplastin Time 30.5 SEC (24.5-34.5); Prothrombin Time 11.1 sec (9.3-11.8)
[2023-11-02 07:37] LABS: Anion Gap 8 (5-15); Calcium 9.3 mg/dL (8.7-10.4); Carbon Dioxide 27 mmol/L (20-30); Chloride 104 mmol/L (98-107); Potassium 3.7 mmol/L (3.5-5.1); Sodium 139 mmol/L (136-145)
[2023-11-02 07:43] LABS: Blood Urea Nitrogen 21 mg/dL (9-23); Glucose 84 mg/dL (74-106)
[2023-11-02] MEDS: ERTAPENEM SOD INJ 1 GM in SODIUM CHL 0.9% 50 ML IV SCH (10:42)
[2023-11-02] MEDS: SOTALOL HCL 80 MG TAB PO ONE (12:36)
[2023-11-02] MEDS: ROPINIROLE HYDROCHLORIDE PO SCH (21:31)
[2023-11-03 05:00] VITALS: BP 102/54; PULSE 63; RESP 16; TEMP 97.8; O2SAT 99
[2023-11-03 08:00] VITALS: PULSE 56
[2023-11-03 09:06] VITALS: BP 117/51; PULSE 61; RESP 18; TEMP 97.7; O2SAT 96
[2023-11-03] MEDS ORDERED: FURO40TA4 PO ×2 (09:15→09:18)
[2023-11-03] MEDS ORDERED: APIX5TAB PO (09:15)
[2023-11-03] MEDS ORDERED: ESOM40CA83 PO (09:18)
[2023-11-03] MEDS ORDERED: CYCL-839 PO (09:18)
[2023-11-03] MEDS: SOTALOL HCL 80 MG TAB PO SCH (09:19)
[2023-11-03 12:15] VITALS: BP 126/70; PULSE 61; RESP 17; TEMP 98.7; O2SAT 92
[2023-11-03] MEDS ORDERED: NITR-52 PO (14:01)
[2023-11-03 15:00] VITALS: BP 118/58
[2023-11-03 16:52] VITALS: BP 118/59; PULSE 56; RESP 17; TEMP 97.8; O2SAT 100
== END 2023-11-03 19:31 | disposition home health service (06) | DRG 871 ==
LOC: ER 12:49 → EDBD 12:49 → TELE 23:45 → TELE-WESTW 11-01 12:12
PROVIDERS: ADMIT Nurse Practitioner Family; ATTEND Internal Medicine
DX: A41.9 Sepsis, unspecified organism (principal); R53.2 Functional quadriplegia; N13.6 Pyonephrosis; I50.42 Chronic combined systolic (congestive) and diastolic (congestive) heart failure; I13.0 Hypertensive heart and chronic kidney disease with heart failure and stage 1 through stage 4 chronic kidney disease, or unspecified chronic kidney disease; E03.9 Hypothyroidism, unspecified; I48.91 Unspecified atrial fibrillation; E66.01 Morbid (severe) obesity due to excess calories; E11.22 Type 2 diabetes mellitus with diabetic chronic kidney disease; N18.9 Chronic kidney disease, unspecified; K44.9 Diaphragmatic hernia without obstruction or gangrene; Z95.2 Presence of prosthetic heart valve; Q63.1 Lobulated, fused and horseshoe kidney; Z88.0 Allergy status to penicillin; Z88.2 Allergy status to sulfonamides; Z88.5 Allergy status to narcotic agent; Z88.1 Allergy status to other antibiotic agents; Z86.718 Personal history of other venous thrombosis and embolism; Z79.01 Long term (current) use of anticoagulants; Z87.442 Personal history of urinary calculi; Z79.899 Other long term (current) drug therapy; Z82.49 Family history of ischemic heart disease and other diseases of the circulatory system; Z82.5 Family history of asthma and other chronic lower respiratory diseases; Z68.38 Body mass index [BMI] 38.0-38.9, adult
CPT/HCPCS: 36415; 73030; 74018; 74176; 80048; 80053; 81001; 83880; 84443; 85025; 85610; 85730; 86850; 86900; 86901; 87081; 87086; 87088; 87186; G0378; J1335; J1956; J3490

== ENCOUNTER 2023-11-18 13:09 | Day surgery (SDC) | payer MEDICARE, MEDICAID ==
[2023-11-17 16:06] LABS: Basophils # (auto) 0.1 10 ^3/uL (0-0.2); Basophils % (auto) 0.6 % (0.0-2.0); Eosinophils # (auto) 0.1 10 ^3/uL (0-0.8); Eosinophils % (auto) 0.9 % (0.0-7.0); Hematocrit 32.8 % (36.0-46.0); Hemoglobin 10.7 g/dL (12.2-16.2); Lymphocytes # (auto) 1.8 10 ^3/uL (0.4-5.4); Mean Corpuscular Hemoglobin 26.8 pg (28.0-32.0); Mean Corpuscular Hgb Conc. 32.7 g/dL (32.0-36.0); Mean Corpuscular Volume 82.2 fL (80.0-100.0); Monocytes # (auto) 1.1 10 ^3/uL (0-1.3); Monocytes % (auto) 8.2 % (0.0-12.0); Neutrophils # (auto) 10.7 10 ^3/uL (1.6-8.6); Neutrophils % (auto) 77.3 % (37.0-80.0); Nucleated Red Blood Cells % 0.1 %; Red Cell Distribution Width 25.3 % (11.8-14.3); White Blood Cell 13.8 10^3/uL (4.4-10.8)
[2023-11-17 16:33] LABS: INR 1.03 (0.9-1.15); Partial Thromboplastin Time 26.3 SEC (24.5-34.5); Prothrombin Time 10.9 sec (9.3-11.8)
[2023-11-17 16:53] LABS: Albumin 3.3 g/dL (3.2-4.8); Alkaline Phosphatase 79 U/L (46-116); Anion Gap 7 (5-15); Aspartate Aminotransferase 13 U/L (13-40); BUN/Creatinine Ratio 34.1 (10.0-20.0); Blood Urea Nitrogen 29 mg/dL (9-23); Calcium 9.2 mg/dL (8.7-10.4); Carbon Dioxide 24 mmol/L (20-30); Chloride 104 mmol/L (98-107); Glucose 84 mg/dL (74-106); Potassium 4.2 mmol/L (3.5-5.1); Sodium 135 mmol/L (136-145)
[2023-11-17 16:54] LABS: Bilirubin, Total 0.3 mg/dL (0.2-1.0); Total Protein 5.8 g/dL (5.7-8.2)
[2023-11-17 16:58] LABS: Alanine Aminotransferase < 9 U/L (7-40)
[~2023-11-18] VITALS: Ht 170.2 cm; Wt 88.5 kg
[~2023-11-18 13:09] MED LIST changes: -ACET-1304 PO; -CARB10TA21 PO; +ESOM40CA83 PO; +FURO1TAB33 PO; -FURO20TA3 PO; -LEVO750T40 PO
[2023-11-18] MEDS ORDERED: MIDAZOLAM HCL 2MG/2ML 2ml VIAL (1mg/ml) ONE (14:17)
[2023-11-18] MEDS ORDERED: fentaNYL CITRATE 100 MCG/2 ML VL ONE (14:17)
[2023-11-18] MEDS ORDERED: PROPOFOL 10 MG/ML 20 ML IV ONE (14:40)
[2023-11-18] MEDS ORDERED: DexAMETHasone SOD PHOS 10MG/1ML VIAL INJ ONE (14:40)
[2023-11-18 14:51] VITALS: TEMP 97.4; O2SAT 98
[2023-11-18 15:26] VITALS: BP 122/69; PULSE 59; RESP 18; O2SAT 97
== END 2023-11-18 14:35 | disposition home or self-care (01) ==
LOC: SUR 13:09
PROVIDERS: ATTEND Urology
DX: N20.0 Calculus of kidney (principal); I11.0 Hypertensive heart disease with heart failure; I50.9 Heart failure, unspecified; J44.9 Chronic obstructive pulmonary disease, unspecified; E03.9 Hypothyroidism, unspecified; I48.91 Unspecified atrial fibrillation; I25.10 Atherosclerotic heart disease of native coronary artery without angina pectoris; E66.01 Morbid (severe) obesity due to excess calories; Z86.2 Personal history of diseases of the blood and blood-forming organs and certain disorders involving the immune mechanism; Z88.6 Allergy status to analgesic agent; Z88.1 Allergy status to other antibiotic agents; Z88.0 Allergy status to penicillin; Z88.2 Allergy status to sulfonamides; Z98.41 Cataract extraction status, right eye; Z98.42 Cataract extraction status, left eye; Z91.030 Bee allergy status; Z79.899 Other long term (current) drug therapy; Z98.890 Other specified postprocedural states; Z68.33 Body mass index [BMI] 33.0-33.9, adult; Z79.82 Long term (current) use of aspirin; Z80.8 Family history of malignant neoplasm of other organs or systems; Z82.49 Family history of ischemic heart disease and other diseases of the circulatory system
CPT/HCPCS: 36415; 52310; 80053; 85025; 85610; 85730; 88300; C1769; J1100; J2250; J2704; J3010; J7030

== ENCOUNTER → 2023-12-29 | Outpatient (CLI) | payer MEDICARE, MEDICAID ==
[~2023-12-29] MED LIST changes: +IOHEXOL 350 MG/ML 100ML IJ ONE
[2023-12-29 12:00] VITALS: BP 146/66; PULSE 60; RESP 18; O2SAT 98
[2023-12-29 12:21] VITALS: BP 148/75; PULSE 64; RESP 18; O2SAT 98
== END | disposition home or self-care (01) ==
LOC: Rad HDHVI 11:41
PROVIDERS: ATTEND Internal Medicine Cardiovascular Disease
DX: N20.0 Calculus of kidney (principal); K44.9 Diaphragmatic hernia without obstruction or gangrene; K43.9 Ventral hernia without obstruction or gangrene; N13.30 Unspecified hydronephrosis; K76.0 Fatty (change of) liver, not elsewhere classified; N26.1 Atrophy of kidney (terminal); N28.1 Cyst of kidney, acquired; K59.00 Constipation, unspecified; M47.815 Spondylosis without myelopathy or radiculopathy, thoracolumbar region; I70.0 Atherosclerosis of aorta
CPT/HCPCS: 74177; G0463; Q9967

== ENCOUNTER 2024-04-24 21:39 | Inpatient (IN) | payer MEDICARE, OTHER, MEDICAID ==
[~2024-04-24] VITALS: Ht 170.2 cm; Wt 110.7 kg
[~2024-04-24 21:39] MED LIST changes: -IOHEXOL 350 MG/ML 100ML IJ ONE
--- NOTE | 2024-04-24 22:18 | ED.PDOC ---
SOB-HPI HPI Comments HPI: Poor Historian. 78-year-old female brought in by ambulance from home for one-week history of cough productive clear phlegm with congestion. Patient completed a Z-Chuy but her symptoms are not improving. Patient is bed ridden. Patient denies associated chest pain or active shortness of breath. Vitals: Temp: 99.4 F HR: 83 RR: 18 BP: 103/54 02 sat: 98% on room air PMH: AFIB, Anemia, Arthritis, CHF, CKF, DM, HTN, Kidney Stones, Thyroid (hypoth yroidism ), multiple blood transfusions. Frequent UTIs LLE DVT w/Eliquis and ASA use PSH: Tonsillectomy, kidney stents ureteral, left upper extremity PICC line Social history: denies tobacco use, denies ETOH use, denies drug use Meds: potassium, tramadol, Lasix, eliquis Allergies: sulfa, morphine REVIEW OF SYSTEMS: CONSTITUTIONAL: Denies acute: , diaphoresis, chills, HEAD: Denies acute: headache, photophobia Eyes: Denies acute: Double vision, vision loss, eye pain, eye discharge. EARS: Denies acute: tinnitus, hearing loss, ear discharge, ear pain, THROAT: Denies acute: sore throat, swelling, difficulty swallowing , pain with swallowing, change in voice. NECK: Denies acute: neck pain, neck swelling, stiff neck. HEART: Denies acute : chest pain, palpitations, LUNGS: Denies acute: SOB, wheezing, hemoptysis ABDOMEN: Denies acute: abdominal pain, Nausea, Vomiting, diarrhea, melena , hematemesis, hematochezia SKIN: Denies acute: rash, redness, lesions, itchiness. EXTREMITIES: Denies acute: calf pain, numbness, tingling, weakness, denies pain in extremity. Denies acute: Low back pain. Neuro: Denies acute: focal neurological deficit, motor or sensory focal neurological deficit, tremors, seizure like activity, confusion, dizziness, change in mental status, loss of bowel or bladder function, cauda equina like symptoms. : Denies acute: dysuria, hematuria, flank pain, increase in urinary frequency. PSYCH: Denies acute: hallucination, suicidal ideation, homicidal ideation. FEMALE: Denies acute: abnormal vaginal bleeding, foul odor, unusual discharge. PHYSICAL EXAM: General: no acute distress, awake and alert. Head: normocephalic, atraumatic. Neck: supple, trachea is midline, no swelling. Throat: Normal phonation. Eyes:, no erythema, no purulent discharge, no proptosis, no icterus. Heart: regular rate, regular rhythm, no significant murmur appreciated. Lungs: no apparent respiratory distress, Able to speak in full sentences. No wheezing, mild bilateral rhonchi, no crackles. No stridors Abdomen: non tender to palpation, non distended, soft, no guarding, no rebound, + bowel sounds. Obese Neuro: Awake, Alert, oriented to name, self, situation, follows commands GCS=15. Speech is normal. Skin: no petechia, no purpura, no cyanosis, slightly-pale, not jaundice. Lower extremities: --trace bilateral - Pitting edema no deformity, no focal swelling, no calf TTP. Makes eye contact. Face: no apparent facial droop. Chief Complaint: Flu like Time Seen by MD: 22:17 Primary Care Provider: UNKNOWN Reviewed notes: Nurses Notes, Medications, Allergies Information Source: Patient, Emergency Med Personnel Mode of Arrival: EMS Past Medical History PAST MEDICAL HISTORY: AFIB, Anemia, Arthritis, CHF, CKF, DM, HTN, Kidney Stones, Thyroid Surgical History: Tonsillectomy MAINSTREAMING FACILITATOR History: No Pertinent MAINSTREAMING FACILITATOR History Family History Family History: Reviewed,noncontributory to illness, No family hx of Cancer, No family hx of DM, No family hx of HTN, No family hx ofKidney christine, No family hx of Liver christine, No family hx of Lung christine, No family hx of Stroke, Family hx of heart christine Social History Smoker: Non-Smoker Alcohol: Denies ETOH Use Drugs: Denies Drug Use Lives In: Home, Care Home Was a procedure done? Was a procedure done?: No Differential Dx Differential Diagnosis: Other (DDx include ACS, unstable angina, anxiety, PE, pneumothroax, neoplasm, cardiac ischemia, COPD, asthma, CHF, pleural effusion, pneumonia, hypoxia, hypercapnia, anemia., infection/sepsis., pulmonary edema. Asthma, Cardiac tamponade, infection.) X-Ray, Labs, Meds, VS Vital Signs Date Time Temp Pulse Resp B/P (MAP) Pulse Ox O2 Delivery O2 Flow Rate FiO2 04/25/24 00:00 73 123/24 00:00 73 25 119/42 (67) 96 04/24/24 22:43 77 17 111/51 (71) 99 04/24/24 22:20 Room Air* 0 21 04/24/24 21:52 99.4 83 18 103/54 (70) 98 Lab Test 04/24/24 23:37 04/24/24 22:35 Range/Units Troponin I High Sensitivity 6 5 </=34 ng/L White Blood Count 14.3 H 4.4-10.8 10^3/uL Red Blood Count 3.06 L 4.0-5.20 10^6/uL Hemoglobin 7.0 *L 12.2-16.2 g/dL Hematocrit 22.5 L 36.0-46.0 % Mean Corpuscular Volume 73.7 L 80.0-100.0 fL Mean Corpuscular Hemoglobin 22.9 L 28.0-32.0 pg Mean Corpuscular Hemoglobin Concent 31.1 L 32.0-36.0 g/dL Red Cell Distribution Width 17.1 H 11.8-14.3 % Platelet Count 528 H 140-450 10^3/uL Mean Platelet Volume 6.8 L 6.9-10.8 fL Neutrophils (%) (Auto) 76.1 37.0-80.0 % Lymphocytes (%) (Auto) 12.7 10.0-50.0 % Monocytes (%) (Auto) 8.8 0.0-12.0 % Eosinophils (%) (Auto) 1.8 0.0-7.0 % Basophils (%) (Auto) 0.6 0.0-2.0 % Neutrophils # (Auto) 10.8 H 1.6-8.6 10 ^3/uL Lymphocytes # (Auto) 1.8 0.4-5.4 10 ^3/uL Monocytes # (Auto) 1.3 0-1.3 10 ^3/uL Eosinophils # (Auto) 0.3 0-0.8 10 ^3/uL Basophils # (Auto) 0.1 0-0.2 10 ^3/uL Nucleated Red Blood Cells 0.1 % Sodium Level 136 136-145 mmol/L Potassium Level 4.1 3.5-5.1 mmol/L Chloride Level 102 98-107 mmol/L Carbon Dioxide Level 25 20-31 mmol/L Anion Gap 9 5-15 Blood Urea Nitrogen 28 H 9-23 mg/dL Creatinine 1.00 0.550-1.02 mg/dL Glomerular Filtration Rate Calc 57 >90 mL/min BUN/Creatinine Ratio 28.0 H 10.0-20.0 Serum Glucose 120 H 74-106 mg/dL Lactic Acid Level 0.8 0.4-2.0 mmol/L Calcium Level 9.1 8.7-10.4 mg/dL Total Bilirubin 0.2 0.2-1.0 mg/dL Aspartate Amino Transferase (AST) 15 13-40 U/L Alanine Aminotransferase (ALT) 12 7-40 U/L Alkaline Phosphatase 87 46-116 U/L B-Type Natriuretic Peptide 82.39 0-100 pg/mL Total Protein 5.3 L 5.7-8.2 g/dL Albumin 3.4 3.2-4.8 g/dL Current Medications Medications (Trade) Dose Ordered Sig/Taran Route Start Time Stop Time Status Last Admin Methylprednisolone Sodium Succinate (Solu Medrol) 80 mg ONCE ONCE IV 04/24/24 23:45 04/25/24 00:11 DC 04/25/24 00:23 Azithromycin 250 ml @ 125 mls/hr ONCE ONCE IV 04/24/24 23:45 04/25/24 01:44 DC 04/25/24 00:23 Sodium Chloride 1,000 ml @ 60 mls/hr [id number] IV 04/24/24 23:45 04/25/24 00:55 Acetaminophen (Tylenol Tablet) 650 mg Q6HP PRN PO 04/24/24 23:45 04/25/24 02:59 Time of 1ST Reevaluation: 03:04 Reevaluation 1ST: Unchanged Patient Education/Counseling: Diagnosis, Treatment Family Education/Counseling: No Family Present Comments Patient presented with the above HPI.--respiratory complaints----workup was initiated. patient was found with the above mentioned diagnosis. Patient ED course and VS have been stabilized. Patient has been reassessed in the ED and remained in a stable condition. Pertinent incidental findings were discussed with the patient and/or family. Patient/family voices understanding and is agreeable with plan. Patient has been observed in the ED adequate length of time to insure imp rovement/stability. patient was admitted to the medicine team for further evaluation and treatment of their presentation. Medicine team ordered blood transfusion. Urinalysis is still pending. All the reports of any imaging studies that were ordered by myself were reviewed by myself. Departure 1 Departure Time of Disposition: 23:00 Impression: Primary Impression: Upper respiratory symptom Additional Impressions: Anemia Leukocytosis Disposition: ADMITTED INPATIENT Admit to: Tele Condition: Guarded Discharged With: Self Critical Care Note Critical Care Time?: No Heart Score Heart Score: Heart Score Response (Comments) Value History N/A 0 EKG N/A 0 Age N/A 0 Risk Factors N/A 0 Troponin N/A 0 Total 0 I personally scribed for YENNY GIRON DO ([email or web address]) on 04/24/24 at 22:18. Electronically submitted by Jose Vora ([email or web address]). YENNY GIRON DO Apr 24, 2024 22:18
[2024-04-24 22:41] LABS: Basophils # (auto) 0.1 10 ^3/uL (0-0.2); Basophils % (auto) 0.6 % (0.0-2.0); Eosinophils # (auto) 0.3 10 ^3/uL (0-0.8); Lymphocytes # (auto) 1.8 10 ^3/uL (0.4-5.4); Nucleated Red Blood Cells % 0.1 %
[2024-04-24 22:43] LABS: Eosinophils % (auto) 1.8 % (0.0-7.0); Hematocrit 22.5 % (36.0-46.0); Lymphocytes % (auto) 12.7 % (10.0-50.0); Mean Corpuscular Hemoglobin 22.9 pg (28.0-32.0); Mean Corpuscular Hgb Conc. 31.1 g/dL (32.0-36.0); Mean Corpuscular Volume 73.7 fL (80.0-100.0); Monocytes # (auto) 1.3 10 ^3/uL (0-1.3); Monocytes % (auto) 8.8 % (0.0-12.0); Neutrophils # (auto) 10.8 10 ^3/uL (1.6-8.6); Neutrophils % (auto) 76.1 % (37.0-80.0); Platelet Count (auto) 528 10^3/uL (140-450); Red Blood Cells 3.06 10^6/uL (4.0-5.20); Red Cell Distribution Width 17.1 % (11.8-14.3); White Blood Cell 14.3 10^3/uL (4.4-10.8)
[2024-04-24 23:00] LABS: Alanine Aminotransferase 12 U/L (7-40); Alkaline Phosphatase 87 U/L (46-116); Calcium 9.1 mg/dL (8.7-10.4); Carbon Dioxide 25 mmol/L (20-31); Chloride 102 mmol/L (98-107); Glucose 120 mg/dL (74-106); Potassium 4.1 mmol/L (3.5-5.1)
[2024-04-24 23:01] LABS: Albumin 3.4 g/dL (3.2-4.8); Anion Gap 9 (5-15); Aspartate Aminotransferase 15 U/L (13-40); Bilirubin, Total 0.2 mg/dL (0.2-1.0); Blood Urea Nitrogen 28 mg/dL (9-23); Sodium 136 mmol/L (136-145); Total Protein 5.3 g/dL (5.7-8.2)
[2024-04-24] MEDS ORDERED: DOCUSATE SOD 100 MG CAP PO PRN (23:45)
[2024-04-24] MEDS ORDERED: MORPHINE SULFATE INJ 2 MG/ml SYRG IV PRN (23:45)
[2024-04-24] MEDS ORDERED: DEXTROSE (50%) 50ML SYRG IV PRN (23:45)
[2024-04-24] MEDS ORDERED: HYDROcodone-ACET 5/325MG TAB PO PRN (23:45)
[2024-04-24] MEDS ORDERED: ONDANSETRON HCL 4 MG/2 ML VIAL IV PRN (23:45)
[2024-04-24] MEDS ORDERED: NITROGLYCERIN 0.4 MG SL TAB SL PRN (23:45)
--- NOTE | 2024-04-24 23:56 | DVH ---
CHEST RADIOGRAPH Indication: cough congestion Technique: Single frontal view of the chest was obtained Comparison: XY CHEST PORTABLE on DOS: 10/14/23, XY CHEST PORTABLE on DOS: 09/21/23, XY CHEST PORTABLE o n DOS: 04/08/23, CHEST PORTABLE on DOS: 05/09/22, CXRP on DOS: 05/09/22 FINDINGS: Lines and Tubes: Left PICC with tip in the SVC Lungs: No focal consolidation. Pleura: No effusion. No pneumothorax. Cardiomediastinal contours: Unremarkable Bones: No acute osseous abnormality. IMPRESSION: No acute cardiopulmonary disease.
[2024-04-25] VITALS (10 sets, daily range): BP systolic 103–159; BP diastolic 54–68; PULSE 62–83; RESP 12–23; TEMP 97.5–99.4; O2SAT 94–100
--- NOTE | 2024-04-25 00:04 | DVHHP2 ---
History of Present Illness Reason for Visit: Acute respiratory failure with hypoxia History of Present Illness The patient is 78 years old bed-bound female, morbidly obese with multiple past medical history including left lower extremity DVT, hypertension, DM, CHF, AFib, and anemia who presented to [facility] ED with complaint of productive cough with phlegm for a proximally 1 week duration. Patient reports symptoms progressively get worse with congestion, shortness of breaths, getting worse that prompted this visit. Patient reports completing antibiotic regimen Z-Chuy with no improvement. Patient was seen and evaluated in the ED, laboratory data shows WBC 14.3, hemoglobin 7.0, hematocrit 22.5, platelets 528, sodium 136, potassium 4.1, BUN 28, creatinine 1.00, glucose 120, BNP 82.39, troponin 5. Please see medication orders section in the computer. On my assessment, patient denied chest pain, no headache, no dizziness, no diaphoresis, currently on oxygen, no abdominal pain, no diarrhea, no nausea, no vomiting, no fever, no chills. Patient was admitted for further evaluation and medical management. Past Medical History AFIB, Anemia, Arthritis, CHF, CKF, DM, HTN, Kidney Stones, hypothyroidism, multiple blood transfusions, LLE DVT Past Surgical History Tonsillectomy, kidney stents ureteral, left upper extremity PICC line Family History Reviewed, noncontributory to the management of this case. Past Social History The patient lives at home, denies smoking, alcohol or illicit drugs abuse. Review of Systems Constitutional: Yes: Weakness; No: Fever, Chills, Sweats, Malaise, Other Eyes: No: Pain, Vision change, Conjunctivae inflammation, Eyelid inflammation, Other, Redness ENT: No: Ear pain, Ear discharge, Nose pain, Nose discharge, Nose congestion, Mouth pain, Mouth swelling, Throat pain, Throat swelling, Other Respiratory: Cough, Shortness of breath; No: Dry, SOB with excertion, Wheezing, Hemoptysis, Pleuritic Pain, Sputum, Wheezing, Other Cardiovascular: No: Chest Pain, Palpitations, Orthopnea, Paroxysmal Noc. Dyspnea, Edema, Lt Headedness, Other Gastrointestinal: No: Nausea, Vomiting, Abdominal Pain, Diarrhea, Constipation, Melena, Hematochezia, Other Genitourinary: No Dysuria, No Frequency, No Incontinence, No Hematuria, No Retention, No Other Musculoskeletal: No: other, neck pain, shoulder pain, arm pain, back pain, hand pain, leg pain, foot pain Skin: No: Rash, Lesions, Jaundice, Bruising, Other Neurological: No: Weakness, Numbness, Incoordination, Change in speech, Confusion, Seizures, Other Allergies: Coded Allergies: Penicillins (Unverified Allergy, Severe, 03/16/15) Sulfa Antibiotics (Unverified Allergy, Severe, 03/16/15) Morphine (Verified Allergy, Intermediate, ALTERED, 01/31/18) PER PATIENT AND HER DAUGHTER SHE CAN NOT HAVE Ceftriaxone (Verified Allergy, Unknown, 01/31/18) COUGH AND CHILLS Exam Vital Signs Vital Signs Date Time Temp Pulse Resp B/P (MAP) Pulse Ox O2 Delivery O2 Flow Rate FiO2 04/24/24 22:20 Room Air* 0 21 04/24/24 21:52 99.4 83 18 103/54 (70) 98 General Appearance: Alert, Oriented X3, Cooperative, No acute distress HEENT: Atraumatic, PERRLA, EOMI, Mucous membr. moist/pink Respiratory: Clear to auscultation, Normal air movement Cardiovascular: Regular rate, Normal S1, Normal S2, No murmurs Abdominal: Normal bowel sounds, Soft, No tenderness, No hepatospenomegaly, No masses Extremities: No clubbing, No cyanosis, No edema, Normal pulses, No tenderness/swelling Skin: No rashes, No breakdown, No significant lesion Neuro: Normal speech, Normal tone, Sensation intact, Cranial nerves 3-12 NL, Reflexes 2+, Other (Generalized weakness) Psych/Mental Status: Mental status NL, Mood NL Labs/Xrays Labs Test 04/24/24 23:37 04/24/24 22:35 Range/Units White Blood Count 14.3 H 4.4-10.8 10^3/uL Red Blood Count 3.06 L 4.0-5.20 10^6/uL Hemoglobin 7.0 *L 12.2-16.2 g/dL Hematocrit 22.5 L 36.0-46.0 % Mean Corpuscular Volume 73.7 L 80.0-100.0 fL Mean Corpuscular Hemoglobin 22.9 L 28.0-32.0 pg Mean Corpuscular Hemoglobin Concent 31.1 L 32.0-36.0 g/dL Red Cell Distribution Width 17.1 H 11.8-14.3 % Platelet Count 528 H 140-450 10^3/uL Mean Platelet Volume 6.8 L 6.9-10.8 fL Neutrophils (%) (Auto) 76.1 37.0-80.0 % Lymphocytes (%) (Auto) 12.7 10.0-50.0 % Monocytes (%) (Auto) 8.8 0.0-12.0 % Eosinophils (%) (Auto) 1.8 0.0-7.0 % Basophils (%) (Auto) 0.6 0.0-2.0 % Neutrophils # (Auto) 10.8 H 1.6-8.6 10 ^3/uL Lymphocytes # (Auto) 1.8 0.4-5.4 10 ^3/uL Monocytes # (Auto) 1.3 0-1.3 10 ^3/uL Eosinophils # (Auto) 0.3 0-0.8 10 ^3/uL Basophils # (Auto) 0.1 0-0.2 10 ^3/uL Nucleated Red Blood Cells 0.1 % Sodium Level 136 136-145 mmol/L Potassium Level 4.1 3.5-5.1 mmol/L Chloride Level 102 98-107 mmol/L Carbon Dioxide Level 25 20-31 mmol/L Anion Gap 9 5-15 Blood Urea Nitrogen 28 H 9-23 mg/dL Creatinine 1.00 0.550-1.02 mg/dL Glomerular Filtration Rate Calc 57 >90 mL/min BUN/Creatinine Ratio 28.0 H 10.0-20.0 Serum Glucose 120 H 74-106 mg/dL Lactic Acid Level 0.8 0.4-2.0 mmol/L Calcium Level 9.1 8.7-10.4 mg/dL Total Bilirubin 0.2 0.2-1.0 mg/dL Aspartate Amino Transferase (AST) 15 13-40 U/L Alanine Aminotransferase (ALT) 12 7-40 U/L Alkaline Phosphatase 87 46-116 U/L B-Type Natriuretic Peptide 82.39 0-100 pg/mL Total Protein 5.3 L 5.7-8.2 g/dL Albumin 3.4 3.2-4.8 g/dL PATIENT: TANESHA FONSECA ACCT: [id number] UNIT: [id number] : 1945 LOC: ER ROOM / BED: / AGE / SEX: 78 / F ADM STATUS: REG ER SERVICE 51 ORDERING PHYSICIAN: YENNY GIRON DO PROCEDURE(s): CXRP - CHEST PORTABLE REASON: cough congestion ORDER NUMBER(s): [id number], ACCESSION NUMBER(s): [id number] CHEST RADIOGRAPH Indication: cough congestion Technique: Single frontal view of the chest was obtained Comparison: XY CHEST PORTABLE on DOS: 10/14/23, XY CHEST PORTABLE on DOS: 09/21/23, XY CHEST PORTABLE on DOS: 04/08/23, CHEST PORTABLE on DOS: 05/09/22, CXRP on DOS: 05/09/22 FINDINGS: Lines and Tubes: Left PICC with tip in the SVC Lungs: No focal consolidation. Pleura: No effusion. No pneumothorax. Cardiomediastinal contours: Unremarkable Bones: No acute osseous abnormality. IMPRESSION: No acute cardiopulmonary disease. Assessment/Plan Assessment/Plan Morbid obesity Severe anemia Persistent cough Thrombocytosis Generalized weakness Leukocytosis, unspecified Acute respiratory failure with hypoxia Plan 1. Admit to telemetry unit 2. Breathing treatment 3. Pain control management 4. IV antibiotic management 5. Management of fluids and electrolytes 6. Consultation for pulmonology 7. Diagnostic test chest x-ray 8. DVT prophylaxis-on Eliquis 9. Repeat labs CBC, CMP in a.m. 10. Home medication reviewed and reconciled 11. Continue with current medical management 12. Treatment plan discussed with patient and RN. Patient verbalized understanding. Plan discussed with: Patient, Other (RN) My Orders Orders - SERA MARINELLI DNP Procedure Category Date Status Time Consistent DIET 04/25/24 Verified Carb(Ccho)Diabetes Breakfast Aspirin Tablet PHA 04/25/24 Verified 10:00 Methylprednisolone PHA 04/24/24 Verified Sod Succ (Solu Medrol 23:45 Methylprednisolone PHA 04/25/24 Verified Sod Succ (Solu Medrol 10:00 Famotidine Injection PHA 04/25/24 Verified (Pepcid Injection) 10:00 Levothyroxine Tablet PHA 04/25/24 Verified (Synthroid Tablet) 06:00 Thyroid Stimulating LAB 04/24/24 Verified Hormone 23:44 Azithromycin 500mg/ PHA 04/25/24 Verified 250ml (Zithromax 50 10:00 Azithromycin 500mg/ PHA 04/24/24 Verified 250ml (Zithromax 50 23:45 *Consult CONS 04/24/24 Verified / 23:44 Albuterol Medneb PHA 04/24/24 Verified (Ventolin Medneb) 23:45 Ipratropium Medneb PHA 04/24/24 Verified (Atrovent Medneb) 23:45 Type And Screen BBK 04/24/24 Verified 23:44 Apixaban (Eliquis) PHA 04/25/24 Verified 10:00 Glucose Blood PHA 04/25/24 Verified (Accu-Chek Comfort 07:00 Mild Sliding Scale PHA 04/25/24 Verified 07:00 Dextrose 50% Syringe PHA 04/24/24 Verified 23:45 Packedcell-Noactive BBK 04/24/24 Verified Bleeding 23:44 Administer Blood [facility] 04/24/24 Verified Products 23:44 Admit ADMIT 04/24/24 Verified 23:44 Allergies [facility] 04/24/24 Verified 23:44 Code Status CODE 04/24/24 Verified 23:44 0.9% Ns [address] [facility] 04/24/24 Verified 23:45 Oxygen Per Hour RT 04/24/24 Verified 23:44 Hydrocodone-Acet [facility] 04/24/24 Verified 5/325mg Tab (King 23:45 Ondansetron Hcl PHA 04/24/24 Verified (Zofran) 23:45 Docusate Sodium PHA 04/24/24 Verified Capsule (Colace 23:45 Fall Risk Precautions [facility] 04/24/[address] 23:44 Complete Blood Count LAB 04/25/24 Verified 04:00 Comprehensive LAB 04/25/24 Verified Metabolic Panel 04:00 Condition: Serious [place] 04/24/24 Verified 23:44 Acetaminophen Tablet PHA 04/24/24 Verified (Tylenol Tablet) 23:45 Sequential [place] 04/24/24 Verified Compression Device Nitroglycerin [facility] 04/24/24 Verified Sublingual (Ntrostat 23:45 Morphine Sulfate PHA 04/24/24 Verified Injection 23:45 Notify Of Changes [facility] 04/24/24 Verified From Base 23:44 Concrete Bucket [place]er For [facility] 04/24/24 Verified 24 Hours 23:44 Emergency Dysrhythmia [facility] 04/24/24 Verified Protocol 23:44 Rhythm Strips Once [facility] 04/24/24 Verified Every Shift 23:44 Oxygen By Nasal RT 04/24/24 Verified Cannula 23:44 Problem List: (1) Morbid obesity (2) Severe anemia (3) Thrombocytosis (4) Generalized weakness (5) Leukocytosis, unspecified (6) Persistent cough (7) Acute respiratory failure with hypoxia Date of Service: Apr 24, 2024 Billing Provider: SERA MARINELLI DNP Common Visit Codes: [id number] INP/OBS CARE (HIGH) SERA MARINELLI DNP Apr 25, 2024 00:04
[2024-04-25] MEDS: AZITHROMYCIN 500MG/ 250ML 250 ML IV ONE (00:23)
[2024-04-25] MEDS: methylPREDNISolone SOD SUCC 125 MG/2 ML VL IV ONE (00:23)
[2024-04-25] MEDS: SODIUM CHLORIDE 0.9% 1,000 ML IV SCH (00:55)
[2024-04-25] MEDS: ACETAMINOPHEN 325 MG TAB PO PRN (02:59)
[2024-04-25 03:19] LABS: COVID19 ANTIGEN SOFIA FIA NEGATIVE (NEGATIVE)
[2024-04-25 05:16] LABS: Basophils # (auto) 0 10 ^3/uL (0-0.2); Eosinophils # (auto) 0 10 ^3/uL (0-0.8); Hemoglobin 7.1 g/dL (12.2-16.2); Monocytes # (auto) 0.2 10 ^3/uL (0-1.3); Monocytes % (auto) 1.3 % (0.0-12.0); Nucleated Red Blood Cells % 0.1 %
[2024-04-25 05:18] LABS: Basophils % (auto) 0.2 % (0.0-2.0); Eosinophils % (auto) 0.2 % (0.0-7.0); Lymphocytes # (auto) 0.6 10 ^3/uL (0.4-5.4); Lymphocytes % (auto) 3.9 % (10.0-50.0); Mean Corpuscular Hemoglobin 23.5 pg (28.0-32.0); Mean Corpuscular Hgb Conc. 32.2 g/dL (32.0-36.0); Mean Corpuscular Volume 72.9 fL (80.0-100.0); Neutrophils # (auto) 14.1 10 ^3/uL (1.6-8.6); Neutrophils % (auto) 94.4 % (37.0-80.0); Platelet Count (auto) 512 10^3/uL (140-450); Red Blood Cells 3.02 10^6/uL (4.0-5.20); Red Cell Distribution Width 16.9 % (11.8-14.3); White Blood Cell 14.9 10^3/uL (4.4-10.8)
[2024-04-25 05:37] LABS: Albumin 3.4 g/dL (3.2-4.8); Alkaline Phosphatase 92 U/L (46-116); Anion Gap 6 (5-15); Blood Urea Nitrogen 26 mg/dL (9-23); Calcium 9.4 mg/dL (8.7-10.4); Carbon Dioxide 26 mmol/L (20-31); Chloride 100 mmol/L (98-107); Glucose 185 mg/dL (74-106); Potassium 4.1 mmol/L (3.5-5.1); Sodium 132 mmol/L (136-145)
[2024-04-25 05:38] LABS: Aspartate Aminotransferase 11 U/L (13-40); Bilirubin, Total 0.2 mg/dL (0.2-1.0)
[2024-04-25 05:54] LABS: Alanine Aminotransferase < 9 U/L (7-40)
[2024-04-25] MEDS: LEVOTHYROXINE SODIUM 25 MCG TAB PO SCH (06:47)
[2024-04-25] MEDS: ACCU-CHEK COMFORT CURVE STRIP VI SCH (06:55)
[2024-04-25] MEDS: InsuLIN REG 1unit/0.01ml Soln (100units/ml) SC SCH (06:56)
[2024-04-25] MEDS: ALBUTEROL SULF 2.5 MG/0.5ML(0.5%) NEB SOLN NEB PRN (07:13)
[2024-04-25] MEDS: IPRATROPIUM BROM 0.5 MG/2.5ML INH SOL NEB PRN (07:14)
[2024-04-25] MEDS: methylPREDNISolone SOD SUCC 40 MG/ML VL IV SCH (10:03)
[2024-04-25] MEDS: ASPirin 81 mg TAB PO SCH (10:03)
[2024-04-25] MEDS: AZITHROMYCIN 500MG/ 250ML 250 ML IV SCH (10:03)
[2024-04-25] MEDS: APIXABAN 2.5 MG TAB PO SCH (10:09)
[2024-04-25] MEDS: FAMOTIDINE (10MG/ML) 2ML VL IV SCH (10:30)
[2024-04-25] MEDS: traMADol HCL 50 MG TAB PO ONE (12:55)
--- NOTE | 2024-04-25 13:18 | DVHPN2 ---
Progress Note - Dictate Date Seen: Apr 25, 2024 Medical Necessity Reason Pt with a Central, PICC or Fol: Yes The following are medically ne: Hook Catheter Subjective PT WITH SOB PRODUCTIVE COUGH HYPOXIA SEVERE ANEMIA HX OF BLEEDING DIATHESIS NOW BEING TRANSFUSE PMH; HEMATURIA HX OF ORGANIC HD S/P TAVR HX OF AV STENOSIS HTN HFpEF DIASTOLIC DYSFUNCTION AFIB ON SOTALOL HYPERCOAGULABLE STATE HX OF DVT MORBID OBESITY 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 ANEMIA HYPONATREMIA vital signs Vital Sign Date Time Temp Pulse Resp B/P (MAP) Pulse Ox O2 Delivery O2 Flow Rate FiO2 04/25/24 09:41 67 12 97 Room Air* 0 21 04/25/24 09:32 97.5 159/61 (93) 97.5 Total Intake and Output 04/24/24 04/24/24 04/25/24 15:00 23:00 07:00 Intake Total 550 ml Balance 550 ml medications Current Medications Medications Dose Ordered Sig/Taran Route Start Time Stop Time Status Last Admin Dose Admin Aspirin 81 mg DAILY PO 04/25/24 10:00 04/25/24 10:03 81 MG Methylprednisolone Sodium Succinate 40 mg BID IV 04/25/24 10:00 04/25/24 10:03 40 MG Famotidine 20 mg Q12HR IV 04/25/24 10:00 Levothyroxine Sodium 75 mcg QAM@0600 PO 04/25/24 06:00 04/25/24 06:47 75 MCG Azithromycin 250 ml @ 125 mls/hr DAILY IV 04/25/24 10:00 04/25/24 10:03 125 MLS/HR Albuterol 2.5 mg Q4HPRN PRN NEB 04/24/24 23:45 04/25/24 07:13 2.5 MG Ipratropium [place] 0.5 mg Q4HPRN PRN NEB 04/24/24 23:45 04/25/24 07:14 0.5 MG Apixaban 2.5 mg BID PO 04/25/24 10:00 04/25/24 10:09 2.5 MG Diagnostic Test (Pha) 1 strip ACHS 04/25/24 07:00 04/25/24 11:31 1 STRIP Insulin Human Regular ACHS SC 04/25/24 07:00 Dextrose 50 ml UD PRN IV 12/2/24 23:45 Sodium Chloride 1,000 ml @ 60 mls/hr [id number] IV 04/24/24 23:45 04/25/24 00:55 60 MLS/HR Acetaminophen/ Hydrocodone Bitart 1 tab Q4HP PRN PO 04/24/24 23:45 Ondansetron HCl 4 mg Q4HP PRN IV 04/24/24 23:45 Docusate Sodium 100 mg BIDPRN PRN PO 04/24/24 23:45 Acetaminophen 650 mg Q6HP PRN PO 04/24/24 23:45 04/25/24 02:59 650 MG Nitroglycerin 0.4 mg Q5MINP PRN SL 04/24/24 23:45 Morphine Sulfate 2 mg Q30M PRN IV 04/24/24 23:45 Carbidopa/Levodopa 2 tab HS PO 04/25/24 22:00 laboratory and microbiology Laboratory Tests 04/25/24 04:37 Test 04/25/24 04:37 Range/Units Serum Glucose 185 H 74-106 mg/dL Problem List SOB PRODUCTIVE COUGH HYPOXIA SEVERE ANEMIA HX OF BLEEDING DIATHESIS NOW BEING TRANSFUSE LEUKOCYTOSIS PMH; HEMATURIA HX OF ORGANIC HD S/P TAVR HX OF AV STENOSIS HTN HFpEF DIASTOLIC DYSFUNCTION AFIB ON SOTALOL HYPERCOAGULABLE STATE HX OF DVT MORBID OBESITY 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
[2024-04-25 14:22] LABS: Urine Bacteria MANY /hpf (None Seen); Urine Blood Negative /uL (Negative); Urine Clarity Clear (Clear); Urine Color Light-Yellow (Yellow); Urine Mucus FEW (None Seen); Urine Protein, UAD Negative (Negative); Urine Specific Gravity 1.007 (1.001-1.035); Urine Urobilinogen Normal (Negative); Urine WBC 6 /hpf (0 - 5)
[2024-04-25] MEDS ORDERED: SOTA80TA PO (18:39)
[2024-04-25] MEDS ORDERED: CLOT1PAK (21:33)
[2024-04-25] MEDS ORDERED: TRAM50TA2 PO (21:33)
[2024-04-25] MEDS ORDERED: CLOB0.059 TOP (21:33)
[2024-04-25] MEDS ORDERED: FURO40TA4 PO (21:33)
[2024-04-25] MEDS ORDERED: ROPI1TAB78 PO (21:33)
[2024-04-25] MEDS ORDERED: ONDA-188 PO (21:33)
[2024-04-25] MEDS ORDERED: ASPI-325 PO (21:33)
--- NOTE | 2024-04-25 21:38 | DVHINCON2 ---
Date of service: Apr 25, 2024 Referring Physician Asim Hinton MD Reason for Consultation Acute hypoxic respiratory failure, COPD exacerbation, cough. History of Present Illness An 78-year-old morbidly obese woman, bed-bound, with significant past medical history including left lower extremity DVT, hypertension, DM, CHF, AFib, and anemia who presented to ED on 04/24/24 with complaint of productive cough with phlegm for approximately 1 week's duration. Patient reported symptoms progressively got worse with congestion and shortness of breath, getting worse that prompted this visit. States she completed antibiotic regimen (Z-Chuy) with no improvement. ED workup noted WBC 14.3, hemoglobin 7.0, hematocrit 22.5, platelets 528, sodium 136, potassium 4.1, BUN 28, creatinine 1.00, glucose 120, BNP 82.39, troponin 5. CXR showed no acute cardiopulmonary abnormalities. Patient was admitted for further care and pulmonary consultation is requested for evaluation and management due to these findings. Review of Systems: 14-point review of systems negative unless otherwise noted above. Past Medical History: AFIB, Anemia, Arthritis, CHF, CKD, DM, hypertension, Kidney Stones, hypothyroidism, multiple blood transfusions, LLE DVT Past Surgical History: Tonsillectomy, kidney/ureteral stents, left upper extremity PICC line Medications: Reviewed. Allergies: Penicillins Sulfa antibiotics Morphine Ceftriaxone Family History: Cancer, COPD, heart disease, hypertension. Suicide (father). Social History: Nonsmoker. No alcohol or illicit drug use. Family History: Cancer G8 MOTHER G8 SISTER Chronic obstructive lung disease (situation) G8 FATHER Family history: Cardiovascular disease G8 MOTHER G8 FATHER Family history: Hypertension G8 MOTHER G8 FATHER Suicide G8 FATHER Allergies: Coded Allergies: Penicillins (Unverified Allergy, Severe, 03/16/15) Sulfa Antibiotics (Unverified Allergy, Severe, 03/16/15) Morphine (Verified Allergy, Intermediate, ALTERED, 01/31/18) PER PATIENT AND HER DAUGHTER SHE CAN NOT HAVE Ceftriaxone (Verified Allergy, Unknown, 01/31/18) COUGH AND CHILLS Home Meds Reported Medications Tramadol Hcl (Tramadol Hcl) 50 Mg Tab, 1 TAB PO QID 04/25/24 Furosemide (Furosemide) 40 Mg Tab, 1 TAB PO DAILY 04/25/24 Aspirin (Aspirin Low Dose) 81 Mg Tab, 1 TAB PO DAILY 04/25/24 Ropinirole Hydrochloride (Ropinirole Hcl) 1 Mg Tab, 1 TAB PO 04/25/24 Izyjahfsrxea-Gvnlpskjcixet-Ham (Dermacinrx Therazole Chuy 1-0.05 & 20 %) 1 Chuy Chuy 04/25/24 Clobetasol Propionate (Clobetasol Propionate) 0.05 % Deepika, TOP 04/25/24 Ondansetron HCl (Ondansetron Hydrochloride) 4 Mg Tab, 1 TAB PO Q8HPRN 04/25/24 Sotalol Hcl (Sotalol Hcl) 80 Mg Tab, 0.5 TAB PO DAILY, #60 TAB 5 Refills 04/25/24 Furosemide (Lasix) 20 Mg Tb, 20 MG PO DAILY, TAB 11/17/23 Apixaban Base (ELIQUIS) 2.5 Mg Tab, 2.5 MG PO BID, TAB 11/17/23 Esomeprazole Magnesium (Esomeprazole Magnesium Dr) 40 Mg Cap, 40 MG PO DAILY, CAP 11/03/23 Acetaminophen (8 Hour Arthritis Pain Rel) 650 Mg Tab, 650 MG PO TID for ARTHRITIS 01/23/22 Betamethasone Dipropionate (Betamethasone Dipropionat) 0.05 % Cre, 1 APPLIC TOP DIRECTED PRN for ECZEMA RASH 01/23/22 Levodopa W/Carbidopa (Sinemet) 10 /100 Tab, 2 TAB PO HS for TREMORS 01/23/22 Sotalol HCl (Sotalol Hydrochloride AF) 80 Mg Tab, 0.5 TAB PO DAILY for ARRYTHMIA 01/23/22 Clotrimazole W/ Betamethasone (Clotrimazole/Betamethason) Diprop Lot, 1 APPLIC TOP BID PRN for ECZEMA RASH 02/05/20 Albuterol Sulfate (Albuterol Sulfate) 0.083 % Neb, 1 VIAL NEB Q6HR PRN for SHORTNESS OF BREATH 02/05/20 Fluticasone Propionate (Nasal) (Flonase Allergy Relief) 50 Mcg/Act Spr, 1 SPR NA BID PRN for ALLERGIES 02/05/20 Ondansetron (Zofran) 4 Mg Tab, 1 TAB PO TID PRN for NAUSEA OR VOMITING 02/05/20 Aspirin (ASPIRIN 81) 81 Mg Tab, 1 TAB PO DAILY for HEART ATTACK PREVENTION 02/05/20 Potassium Chloride (Potassium Chloride ER) 20 Meq Tab, 1 TAB PO DAILY for SUPPLEMENT 02/05/20 Apremilast Base (Otezla) 30 Mg Tab, 1 TAB PO BID for ARTHRITIS 03/28/19 Tramadol HCl (Tramadol Hydrochloride) 50 Mg Tab, 1 TAB PO QID PRN for MODERATE PAIN (4-6 PAIN SCALE) 10/30/18 Albuterol Sulfate (VENTOLIN MDI) 90 Mcg Ih, 2 PUFF IN Q6HR PRN for SHORTNESS OF BREATH 04/21/18 Levothyroxine Sodium (Levothyroxine Sodium) 75 Mcg Tab, 1 TAB PO DAILY for HYPOTHYROIDISM, 5 Refills 03/17/15 Ropinirole Hydrochloride (Requip) 1 Mg Tab, 1 TAB PO HS for RESTLESS LEGS 03/17/15 Current Medications Current Medications Medications (Trade) Dose Ordered Sig/Taran Route PRN Reason Start Time Stop Time Status Last Admin Aspirin 81 mg DAILY PO 04/25/24 10:00 04/25/24 10:03 Methylprednisolone Sodium Succinate (Solu Medrol) 40 mg BID IV 04/25/24 10:00 04/25/24 10:03 Famotidine (Pepcid Injection) 20 mg Q12HR IV 04/25/24 10:00 Levothyroxine Sodium (Synthroid Tablet) 75 mcg QAM@0600 PO 04/25/24 06:00 04/25/24 06:47 Azithromycin 250 ml @ 125 mls/hr DAILY IV 04/25/24 10:00 04/25/24 10:03 Albuterol (Ventolin Medneb) 2.5 mg Q4HPRN PRN NEB SHORTNESS OF BREATH 04/24/24 23:45 04/25/24 07:13 Ipratropium [place] (Atrovent Medneb) 0.5 mg Q4HPRN PRN NEB SHORTNESS OF BREATH 04/24/24 23:45 04/25/24 07:14 Apixaban (Eliquis) 2.5 mg BID PO 04/25/24 10:00 04/25/24 10:09 Diagnostic Test (Pha) (Accu-Chek Comfort Curve T) 1 strip ACHS 04/25/24 07:00 04/25/24 11:31 Insulin Human Regular (InsuLIN R) ACHS SC 04/25/24 07:00 Dextrose 50 ml UD PRN IV Blood Sugar LESS THAN 60 04/24/24 23:45 Sodium Chloride 1,000 ml @ 60 mls/hr [id number] IV 04/24/24 23:45 04/25/24 16:25 Acetaminophen/ Hydrocodone Bitart ([place] 5/325MG Tab) 1 tab Q4HP PRN PO MODERATE PAIN (4-6 PAIN SCALE) 04/24/24 23:45 Ondansetron HCl (Zofran) 4 mg Q4HP PRN IV NAUSEA / VOMITING 04/24/24 23:45 Docusate Sodium (Colace Capsule) 100 mg BIDPRN PRN PO FOR CONSTIPATION 04/24/24 23:45 Acetaminophen (Tylenol Tablet) 650 mg Q6HP PRN PO PAIN SCALE 1-3 OR TEMP>100.4 04/24/24 23:45 04/25/24 02:59 Nitroglycerin (Ntrostat Sublingual) 0.4 mg Q5MINP PRN SL FOR CHEST PAIN 04/24/24 23:45 Morphine Sulfate 2 mg Q30M PRN IV FOR CHEST PAIN 04/24/24 23:45 Carbidopa/Levodopa (Sinemet 10/ 100mg) 2 tab HS PO 04/25/24 22:00 Vital Signs Vital Signs Date Time Temp Pulse Resp B/P (MAP) Pulse Ox O2 Delivery O2 Flow Rate FiO2 04/25/24 19:45 62 22 96 Room Air* 0 21 04/25/24 19:45 98.6 98.6 04/25/24 19:07 170/76 (107) Physical Exam Gen.: Patient lying in bed in no apparent distress. Breathing on room air. Head: Normocephalic, atraumatic. Eyes: EOMI/PERRLA. Ears: Normal hearing. Normal anatomy. Neck/trachea: Trachea midline, supple. Nose: Normal external anatomy. Mouth: Moist mucous membranes. Chest: Decreased air entry bilaterally. No wheezing or rhonchi. Cardiovascular: Positive S1, positive S2. Regular rate and rhythm. Abdomen: Positive bowel sounds in all 4 quadrants. Soft, non-tender, non- distended. : Deferred. Rectal: Deferred. Skin: Warm, dry. Intact. Extremities: 2+ radial pulses bilaterally. No lower extremity edema. Neuro: Awake, alert, oriented x3. No gross motor or sensory deficits. Cranial nerves II through XII intact. Gait not assessed. Labs/Diagnostic Data Labs Test 04/25/24 13:45 04/25/24 11:30 04/25/24 04:37 04/25/24 02:30 Range/Units Urine Color Light-yellow Yellow Urine Clarity Clear Clear Urine pH 6.0 5.0-9.0 Urine Specific [place] 1.007 1.001-1.035 Urine Protein Negative Negative Urine Ketones Negative Negative Urine Blood Negative Negative /uL Urine Nitrite Negative Negative Urine Bilirubin Negative Negative Urine Urobilinogen Normal Negative mg/dL Urine Leukocyte Esterase Negative Negative /uL Urine RBC 1 0 - 4 /hpf Urine WBC 6 0 - 5 /hpf Urine Squamous Epithelial Cells None seen <5 /hpf Urine Bacteria Many H None Seen /hpf Urine Mucus Few None Seen Urine Glucose Normal Normal mg/dL POC Glucose 180 H 70-106 mg/dl White Blood Count 14.9 H 4.4-10.8 10^3/uL Red Blood Count 3.02 L 4.0-5.20 10^6/uL Hemoglobin 7.1 L 12.2-16.2 g/dL Hematocrit 22.0 L 36.0-46.0 % Mean Corpuscular Volume 72.9 L 80.0-100.0 fL Mean Corpuscular Hemoglobin 23.5 L 28.0-32.0 pg Mean Corpuscular Hemoglobin Concent 32.2 32.0-36.0 g/dL Red Cell Distribution Width 16.9 H 11.8-14.3 % Platelet Count 512 H 140-450 10^3/uL Mean Platelet Volume 7.2 6.9-10.8 fL Neutrophils (%) (Auto) 94.4 H 37.0-80.0 % Lymphocytes (%) (Auto) 3.9 L 10.0-50.0 % Monocytes (%) (Auto) 1.3 0.0-12.0 % Eosinophils (%) (Auto) 0.2 0.0-7.0 % Basophils (%) (Auto) 0.2 0.0-2.0 % Neutrophils # (Auto) 14.1 H 1.6-8.6 10 ^3/uL Lymphocytes # (Auto) 0.6 0.4-5.4 10 ^3/uL Monocytes # (Auto) 0.2 0-1.3 10 ^3/uL Eosinophils # (Auto) 0 0-0.8 10 ^3/uL Basophils # (Auto) 0 0-0.2 10 ^3/uL Nucleated Red Blood Cells 0.1 % Sodium Level 132 L 136-145 mmol/L Potassium Level 4.1 3.5-5.1 mmol/L Chloride Level 100 98-107 mmol/L Carbon Dioxide Level 26 20-31 mmol/L Anion Gap 6 5-15 Blood Urea Nitrogen 26 H 9-23 mg/dL Creatinine 1.04 H 0.550-1.02 mg/dL Glomerular Filtration Rate Calc 54 >90 mL/min BUN/Creatinine Ratio 25.0 H 10.0-20.0 Serum Glucose 185 H 74-106 mg/dL Calcium Level 9.4 8.7-10.4 mg/dL Total Bilirubin 0.2 0.2-1.0 mg/dL Aspartate Amino Transferase (AST) 11 L 13-40 U/L Alanine Aminotransferase (ALT) < 9 7-40 U/L Alkaline Phosphatase 92 46-116 U/L Total Protein 6.0 5.7-8.2 g/dL Albumin 3.4 3.2-4.8 g/dL SARS-CoV-2 Antigen (Rapid) Negative NEGATIVE Test 04/25/24 00:32 04/24/24 22:35 Range/Units Troponin I High Sensitivity 5 </=34 ng/L Thyroid Stimulating Hormone (TSH) 0.27 L 0.55-4.78 uIU/mL Lactic Acid Level 0.8 0.4-2.0 mmol/L B-Type Natriuretic Peptide 82.39 0-100 pg/mL Assessment Impression: Acute hypoxic respiratory failure COPD exacerbation Chronic cough. Anemia Morbid obesity BMI 38.8 Plan: Supplemental oxygen PRN Titrate to keep O2 sats above 92%. CXR reviewed, no acute opacities, pleural effusion or pneumothorax. Continue bronchodilators. Continue IV antibiotics IV fluid hydration Monitor renal function. Monitor electrolytes. Supplement as necessary. Monitor ins and outs. Recommend outpatient PFTs to assess lung function. DVT prophylaxis. Prognosis: Poor given patient's multiple co-morbidities. Rest of plan per hospitalist and other consultants. Thank you Dr. Asim Hinton MD, for allowing me to participate in this patient's care. Further recommendations will depend on the patient's clinical course. Please do not hesitate to contact me if you have any questions or concerns. This medical document was created using an electronic medical record system with [employer] computerized dictation system. Although these documentations are being carefully reviewed, there may still be some phonetic and typographical changes. The errors are purely typographical, due to imperfection on the software program, and do not reflect any compromise in the patient's medical care. Plan discussed with: Patient, Other (FABIO Adams/MD Hinton) BENITO WILLARD MD Apr 25, 2024 21:38
[2024-04-25] MEDS: CARBIDOPA W LEVODOPA 10/100mg TABLET PO SCH (23:19)
[2024-04-26] VITALS (11 sets, daily range): BP systolic 126–167; BP diastolic 54–78; PULSE 57–70; RESP 18–20; TEMP 97.7–98.1; O2SAT 95–100
[2024-04-26] MEDS: SOTALOL HCL 80 MG TAB PO ONE (10:56)
--- NOTE | 2024-04-26 13:38 | DVHPN2 ---
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 ANEMIA HYPONATREMIA vital signs Vital Sign Date Time Temp Pulse Resp B/P (MAP) Pulse Ox O2 Delivery O2 Flow Rate FiO2 04/26/24 13:10 97.7 58 18 141/54 (83) 98 97.7 04/26/24 10:00 Room Air* 0 21 Total Intake and Output 04/25/24 04/25/24 04/26/24 15:00 23:00 07:00 Intake Total 1150 ml 180 ml 75 ml Output Total 0 ml 900 ml Balance 1150 ml -720 ml 75 ml medications Current Medications Medications Dose Ordered Sig/Taran Route Start Time Stop Time Status Last Admin Dose Admin Aspirin 81 mg DAILY PO 04/25/24 10:00 04/26/24 10:35 81 MG Methylprednisolone Sodium Succinate 40 mg BID IV 04/25/24 10:00 04/26/24 10:34 40 MG Famotidine 20 mg Q12HR IV 04/25/24 10:00 04/26/24 10:00 20 MG Levothyroxine Sodium 75 mcg QAM@0600 PO 04/25/24 06:00 04/26/24 06:31 75 MCG Azithromycin 250 ml @ 125 mls/hr DAILY IV 04/25/24 10:00 04/26/24 10:00 125 MLS/HR Albuterol 2.5 mg Q4HPRN PRN NEB 04/24/24 23:45 04/26/24 10:00 2.5 MG Ipratropium [place] 0.5 mg Q4HPRN PRN NEB 04/24/24 23:45 04/26/24 10:00 0.5 MG Apixaban 2.5 mg BID PO 04/25/24 10:00 04/26/24 10:35 2.5 MG Diagnostic Test (Pha) 1 strip ACHS 04/25/24 07:00 04/26/24 06:31 1 STRIP Insulin Human Regular ACHS SC 04/25/24 07:00 Dextrose 50 ml UD PRN IV 04/24/24 23:45 Sodium Chloride 1,000 ml @ 60 mls/hr [id number] IV 04/24/24 23:45 04/25/24 16:25 60 MLS/HR Acetaminophen/ Hydrocodone Bitart 1 tab Q4HP PRN PO 04/24/24 23:45 Ondansetron HCl 4 mg Q4HP PRN IV 04/24/24 23:45 Docusate Sodium 100 mg BIDPRN PRN PO 04/24/24 23:45 Acetaminophen 650 mg Q6HP PRN PO 04/24/24 23:45 04/25/24 02:59 650 MG Nitroglycerin 0.4 mg Q5MINP PRN SL 04/24/24 23:45 Morphine Sulfate 2 mg Q30M PRN IV 04/24/24 23:45 Carbidopa/Levodopa 2 tab HS PO 04/25/24 22:00 04/25/24 23:19 2 TAB Sotalol HCl 40 mg DAILY PO 04/27/24 10:00 laboratory and microbiology Laboratory Tests 04/25/24 04:37 Test 04/25/24 04:37 Range/Units Serum Glucose 185 H 74-106 mg/dL Problem List SOB PRODUCTIVE COUGH HYPOXIA SEVERE ANEMIA HX OF BLEEDING DIATHESIS NOW BEING TRANSFUSE LEUKOCYTOSIS PMH; HEMATURIA HX OF ORGANIC HD S/P TAVR HX OF AV STENOSIS HTN HFpEF DIASTOLIC DYSFUNCTION AFIB ON SOTALOL HYPERCOAGULABLE STATE HX OF DVT MORBID OBESITY 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
--- NOTE | 2024-04-26 20:33 | DVHPN2 ---
Progress Note - Dictate Date Seen: Apr 26, 2024 Medical Necessity Reason Pt with a Central, PICC or Fol: Yes The following are medically ne: Hook Catheter Subjective Patient seen and examined at bedside. Breathing comfortably on room air. Overnight events reviewed. vital signs Vital Sign Date Time Temp Pulse Resp B/P (MAP) Pulse Ox O2 Delivery O2 Flow Rate FiO2 04/26/24 17:43 98.1 57 18 126/54 (78) 97 98.1 04/26/24 10:00 Room Air* 0 21 Total Intake and Output 04/25/24 04/25/24 04/26/24 15:00 23:00 07:00 Intake Total 1150 ml 180 ml 75 ml Output Total 0 ml 900 ml Balance 1150 ml -720 ml 75 ml medications Current Medications Medications Dose Ordered Sig/Taran Route Start Time Stop Time Status Last Admin Dose Admin Aspirin 81 mg DAILY PO 04/25/24 10:00 04/26/24 10:35 81 MG Methylprednisolone Sodium Succinate 40 mg BID IV 04/25/24 10:00 04/26/24 10:34 40 MG Famotidine 20 mg Q12HR IV 04/25/24 10:00 04/26/24 10:00 20 MG Levothyroxine Sodium 75 mcg QAM@0600 PO 04/25/24 06:00 04/26/24 06:31 75 MCG Azithromycin 250 ml @ 125 mls/hr DAILY IV 04/25/24 10:00 04/26/24 10:00 125 MLS/HR Albuterol 2.5 mg Q4HPRN PRN NEB 04/24/24 23:45 04/26/24 10:00 2.5 MG Ipratropium [place] 0.5 mg Q4HPRN PRN NEB 04/24/24 23:45 04/26/24 10:00 0.5 MG Apixaban 2.5 mg BID PO 04/25/24 10:00 04/26/24 10:35 2.5 MG Diagnostic Test (Pha) 1 strip ACHS 04/25/24 07:00 04/26/24 16:46 1 STRIP Insulin Human Regular ACHS SC 04/25/24 07:00 04/26/24 16:47 2 UNITS Dextrose 50 ml UD PRN IV 04/24/24 23:45 Sodium Chloride 1,000 ml @ 60 mls/hr [id number] IV 04/24/24 23:45 04/25/24 16:25 60 MLS/HR Acetaminophen/ Hydrocodone Bitart 1 tab Q4HP PRN PO 04/24/24 23:45 Ondansetron HCl 4 mg Q4HP PRN IV 04/24/24 23:45 Docusate Sodium 100 mg BIDPRN PRN PO 04/24/24 23:45 Acetaminophen 650 mg Q6HP PRN PO 04/24/24 23:45 04/25/24 02:59 650 MG Nitroglycerin 0.4 mg Q5MINP PRN SL 04/24/24 23:45 Morphine Sulfate 2 mg Q30M PRN IV 04/24/24 23:45 Carbidopa/Levodopa 2 tab HS PO 04/25/24 22:00 04/25/24 23:19 2 TAB Sotalol HCl 40 mg DAILY PO 04/27/24 10:00 Tramadol HCl 25 mg Q4HP PRN PO 04/26/24 17:15 objective Gen.: Patient lying in bed in no apparent distress. Breathing on room air. Head: Normocephalic, atraumatic. Eyes: EOMI/PERRLA. Ears: Normal hearing. Normal anatomy. Neck/trachea: Trachea midline, supple. Nose: Normal external anatomy. Mouth: Moist mucous membranes. Chest: Decreased air entry bilaterally. No wheezing or rhonchi. Cardiovascular: Positive S1, positive S2. Regular rate and rhythm. Abdomen: Positive bowel sounds in all 4 quadrants. Soft, non-tender, non- distended. : Deferred. Rectal: Deferred. Skin: Warm, dry. Intact. Extremities: 2+ radial pulses bilaterally. No lower extremity edema. Neuro: Awake, alert, oriented x3. No gross motor or sensory deficits. Cranial nerves II through XII intact. Gait not assessed. laboratory and microbiology Laboratory Tests 04/25/24 04:37 Test 04/25/24 04:37 Range/Units Serum Glucose 185 H 74-106 mg/dL Assessment/Plan Impression: Acute hypoxic respiratory failure COPD exacerbation Chronic cough. Anemia Morbid obesity Events: On room air No new complaints Cont IV abx Cont IV diuresis. Monitor ins/outs. Rest of plan as noted below. Plan: Supplemental oxygen PRN Titrate to keep O2 sats above 92%. CXR reviewed, no acute opacities, pleural effusion or pneumothorax. Continue bronchodilators. Continue IV antibiotics IV fluid hydration Monitor renal function. Monitor electrolytes. Supplement as necessary. Monitor ins and outs. Recommend outpatient PFTs to assess lung function. DVT prophylaxis. Prognosis: Poor given patient's multiple co-morbidities. Rest of plan per hospitalist and other consultants. Thank you Dr. Asim Hinton MD, for allowing me to participate in this patient's care. Further recommendations will depend on the patient's clinical course. Please do not hesitate to contact me if you have any questions or concerns. This medical document was created using an electronic medical record system with [employer] dictation system. Although these documentations are being carefully reviewed, there may still be some phonetic and typographical changes. The errors are purely typographical, due to imperfection on the software program, and do not reflect any compromise in the patient's medical care. Plan discussed with: Patient, Other (RN, MD) CC Plasma Assessment Blood Product Administration S: [id number] BENITO WILLARD MD Apr 26, 2024 20:33
[2024-04-27] VITALS (15 sets, daily range): BP systolic 119–172; BP diastolic 50–74; PULSE 57–70; RESP 18–22; TEMP 97.4–98.4; O2SAT 96–100
--- NOTE | 2024-04-27 11:11 | DVHPN2 ---
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 ANEMIA HYPONATREMIA vital signs Vital Sign Date Time Temp Pulse Resp B/P (MAP) Pulse Ox O2 Delivery O2 Flow Rate FiO2 04/27/24 08:51 97.6 57 18 149/74 (99) 98 97.6 04/27/24 02:55 Room Air* 0 21 Total Intake and Output 04/26/24 04/26/24 04/27/24 15:00 23:00 07:00 Intake Total 400 ml 1600 ml Output Total 1000 ml 900 ml Balance -600 ml 700 ml medications Current Medications Medications Dose Ordered Sig/Taran Route Start Time Stop Time Status Last Admin Dose Admin Aspirin 81 mg DAILY PO 04/25/24 10:00 04/26/24 10:35 81 MG Methylprednisolone Sodium Succinate 40 mg BID IV 04/25/24 10:00 04/26/24 21:38 40 MG Famotidine 20 mg Q12HR IV 04/25/24 10:00 04/26/24 22:13 20 MG Levothyroxine Sodium 75 mcg QAM@0600 PO 04/25/24 06:00 04/27/24 05:10 75 MCG Azithromycin 250 ml @ 125 mls/hr DAILY IV 04/25/24 10:00 04/26/24 10:00 125 MLS/HR Albuterol 2.5 mg Q4HPRN PRN NEB 04/24/24 23:45 04/27/24 02:54 2.5 MG Ipratropium [place] 0.5 mg Q4HPRN PRN NEB 04/24/24 23:45 04/27/24 02:55 0.5 MG Apixaban 2.5 mg BID PO 04/25/24 10:00 04/26/24 21:38 2.5 MG Diagnostic Test (Pha) 1 strip ACHS 04/25/24 07:00 04/27/24 06:04 1 STRIP Insulin Human Regular ACHS SC 04/25/24 07:00 04/26/24 16:47 2 UNITS Dextrose 50 ml UD PRN IV 04/24/24 23:45 Sodium Chloride 1,000 ml @ 60 mls/hr [id number] IV 04/24/24 23:45 04/26/24 21:40 60 MLS/HR Acetaminophen/ Hydrocodone Bitart 1 tab Q4HP PRN PO 04/24/24 23:45 Ondansetron HCl 4 mg Q4HP PRN IV 04/24/24 23:45 Docusate Sodium 100 mg BIDPRN PRN PO 04/24/24 23:45 Acetaminophen 650 mg Q6HP PRN PO 04/24/24 23:45 04/25/24 02:59 650 MG Nitroglycerin 0.4 mg Q5MINP PRN SL 04/24/24 23:45 Morphine Sulfate 2 mg Q30M PRN IV 04/24/24 23:45 Carbidopa/Levodopa 2 tab HS PO 04/25/24 22:00 04/26/24 22:20 2 TAB Sotalol HCl 40 mg DAILY PO 04/27/24 10:00 Tramadol HCl 25 mg Q4HP PRN PO 04/26/24 17:15 laboratory and microbiology Laboratory Tests 04/25/24 04:37 Test 04/25/24 04:37 Range/Units Serum Glucose 185 H 74-106 mg/dL Problem List SOB PRODUCTIVE COUGH HYPOXIA SEVERE ANEMIA HX OF BLEEDING DIATHESIS NOW BEING TRANSFUSE LEUKOCYTOSIS PMH; HEMATURIA HX OF ORGANIC HD S/P TAVR HX OF AV STENOSIS HTN HFpEF DIASTOLIC DYSFUNCTION AFIB ON SOTALOL HYPERCOAGULABLE STATE HX OF DVT MORBID OBESITY 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
[2024-04-27] MEDS: SOTALOL HCL 80 MG TAB PO SCH (11:21)
[2024-04-27] MEDS: FUROSEMIDE 40 MG TAB PO ONE (17:15)
[2024-04-27] MEDS: hydrALAZINE HCL 20 MG/ML VL IV PRN (18:10)
[2024-04-27] MEDS: EPOETIN ALFA-EPBX 10,000 UNIT/1ML VIAL SC ONE (20:49)
[2024-04-27] MEDS: IRON SUCROSE COMPLEX 110 ML IV SCH (23:18)
--- NOTE | 2024-04-27 23:27 | DVHPN2 ---
Progress Note - Dictate Date Seen: Apr 27, 2024 Medical Necessity Reason Pt with a Central, PICC or Fol: Yes The following are medically ne: Hook Catheter Subjective Patient seen and examined at bedside. Breathing comfortably on room air. Overnight events reviewed. vital signs Vital Sign Date Time Temp Pulse Resp B/P (MAP) Pulse Ox O2 Delivery O2 Flow Rate FiO2 04/27/24 21:00 97.8 60 18 167/68 (101) 97 97.8 04/27/24 10:00 Room Air* 0 21 Total Intake and Output 04/26/24 04/26/24 04/27/24 15:00 23:00 07:00 Intake Total 400 ml 1600 ml Output Total 1000 ml 900 ml Balance -600 ml 700 ml medications Current Medications Medications Dose Ordered Sig/Taran Route Start Time Stop Time Status Last Admin Dose Admin Aspirin 81 mg DAILY PO 04/25/24 10:00 04/27/24 11:20 81 MG Methylprednisolone Sodium Succinate 40 mg BID IV 04/25/24 10:00 04/27/24 21:11 40 MG Famotidine 20 mg Q12HR IV 04/25/24 10:00 04/27/24 21:11 20 MG Levothyroxine Sodium 75 mcg QAM@0600 PO 04/25/24 06:00 04/27/24 05:10 75 MCG Azithromycin 250 ml @ 125 mls/hr DAILY IV 04/25/24 10:00 04/27/24 11:13 125 MLS/HR Albuterol 2.5 mg Q4HPRN PRN NEB 04/24/24 23:45 04/27/24 02:54 2.5 MG Ipratropium [place] 0.5 mg Q4HPRN PRN NEB 04/24/24 23:45 04/27/24 02:55 0.5 MG Apixaban 2.5 mg BID PO 04/25/24 10:00 04/27/24 21:08 2.5 MG Diagnostic Test (Pha) 1 strip ACHS 04/25/24 07:00 04/27/24 21:12 1 STRIP Insulin Human Regular ACHS SC 04/25/24 07:00 04/27/24 11:40 2 UNITS Dextrose 50 ml UD PRN IV 04/24/24 23:45 Sodium Chloride 1,000 ml @ 60 mls/hr [id number] IV 04/24/24 23:45 04/26/24 21:40 60 MLS/HR Acetaminophen/ Hydrocodone Bitart 1 tab Q4HP PRN PO 04/24/24 23:45 Ondansetron HCl 4 mg Q4HP PRN IV 04/24/24 23:45 Docusate Sodium 100 mg BIDPRN PRN PO 04/24/24 23:45 Acetaminophen 650 mg Q6HP PRN PO 04/24/24 23:45 04/25/24 02:59 650 MG Nitroglycerin 0.4 mg Q5MINP PRN SL 04/24/24 23:45 Morphine Sulfate 2 mg Q30M PRN IV 04/24/24 23:45 Carbidopa/Levodopa 2 tab HS PO 04/25/24 22:00 04/27/24 21:10 2 TAB Sotalol HCl 40 mg DAILY PO 04/27/24 10:00 04/27/24 11:21 40 MG Tramadol HCl 25 mg Q4HP PRN PO 04/26/24 17:15 Iron Sucrose 110 ml @ 110 mls/hr DAILY@1200 IV 04/27/24 12:00 05/01/24 12:59 04/27/24 23:18 110 MLS/HR Furosemide 40 mg DAILY PO 04/28/24 10:00 Hydralazine HCl 5 mg Q6HP PRN IV 04/27/24 17:45 04/27/24 20:45 5 MG objective Gen.: Patient lying in bed in no apparent distress. Breathing on room air. Head: Normocephalic, atraumatic. Eyes: EOMI/PERRLA. Ears: Normal hearing. Normal anatomy. Neck/trachea: Trachea midline, supple. Nose: Normal external anatomy. Mouth: Moist mucous membranes. Chest: Decreased air entry bilaterally. No wheezing or rhonchi. Cardiovascular: Positive S1, positive S2. Regular rate and rhythm. Abdomen: Positive bowel sounds in all 4 quadrants. Soft, non-tender, non- distended. : Deferred. Rectal: Deferred. Skin: Warm, dry. Intact. Extremities: 2+ radial pulses bilaterally. No lower extremity edema. Neuro: Awake, alert, oriented x3. No gross motor or sensory deficits. Cranial nerves II through XII intact. Gait not assessed. laboratory and microbiology Laboratory Tests 04/25/24 04:37 Test 04/25/24 04:37 Range/Units Serum Glucose 185 H 74-106 mg/dL Assessment/Plan Impression: Acute hypoxic respiratory failure COPD exacerbation Chronic cough. Anemia Morbid obesity Events: Breathing on room air No respiratory distress. s/p 1 unit PRBC Monitor hemoglobin Diurese w/ Lasix as tolerated Monitor renal function. Monitor electrolytes. Supplement as necessary. Monitor ins and outs. Labs and imaging reviewed. Rest of plan as noted below. Plan: Supplemental oxygen PRN Titrate to keep O2 sats above 92%. CXR reviewed, no acute opacities, pleural effusion or pneumothorax. Continue bronchodilators. Continue IV antibiotics IV fluid hydration Monitor renal function. Monitor electrolytes. Supplement as necessary. Monitor ins and outs. Recommend outpatient PFTs to assess lung function. DVT prophylaxis. Prognosis: Poor given patient's multiple co-morbidities. Rest of plan per hospitalist and other consultants. Thank you Dr. Asim Hinton MD, for allowing me to participate in this patient's care. Further recommendations will depend on the patient's clinical course. Please do not hesitate to contact me if you have any questions or concerns. This medical document was created using an electronic medical record system with [employer] dictation system. Although these documentations are being carefully reviewed, there may still be some phonetic and typographical changes. The errors are purely typographical, due to imperfection on the software program, and do not reflect any compromise in the patient's medical care. Plan discussed with: Patient, Other (FABIO Juarez) CC Plasma Assessment Blood Product Administration S: [id number] BENITO WILLARD MD Apr 27, 2024 23:27
[2024-04-28] VITALS (14 sets, daily range): BP systolic 119–166; BP diastolic 52–68; PULSE 61–116; RESP 18–21; TEMP 97.3–98; O2SAT 93–100
[2024-04-28] MEDS: FUROSEMIDE 40 MG TAB PO SCH (11:31)
--- NOTE | 2024-04-28 14:00 | DVHPN2 ---
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 ANEMIA HYPONATREMIA vital signs Vital Sign Date Time Temp Pulse Resp B/P (MAP) Pulse Ox O2 Delivery O2 Flow Rate FiO2 04/28/24 12:56 97.3 70 21 124/52 (76) 98 97.3 04/28/24 08:38 Room Air 0.0 04/28/24 08:38 21 Total Intake and Output 04/27/24 04/27/24 04/28/24 15:00 23:00 07:00 Intake Total 1310 ml 515 ml Output Total 850 ml 450 ml Balance 460 ml 65 ml medications Current Medications Medications Dose Ordered Sig/Taran Route Start Time Stop Time Status Last Admin Dose Admin Aspirin 81 mg DAILY PO 04/25/24 10:00 04/28/24 11:31 81 MG Methylprednisolone Sodium Succinate 40 mg BID IV 04/25/24 10:00 04/28/24 11:30 40 MG Famotidine 20 mg Q12HR IV 04/25/24 10:00 04/27/24 21:11 20 MG Levothyroxine Sodium 75 mcg QAM@0600 PO 04/25/24 06:00 04/28/24 06:44 75 MCG Azithromycin 250 ml @ 125 mls/hr DAILY IV 04/25/24 10:00 04/28/24 11:32 125 MLS/HR Albuterol 2.5 mg Q4HPRN PRN NEB 04/24/24 23:45 04/28/24 03:28 2.5 MG Ipratropium [place] 0.5 mg Q4HPRN PRN NEB 04/24/24 23:45 04/28/24 03:29 0.5 MG Apixaban 2.5 mg BID PO 04/25/24 10:00 04/28/24 11:31 2.5 MG Diagnostic Test (Pha) 1 strip ACHS 04/25/24 07:00 04/28/24 06:33 1 STRIP Insulin Human Regular ACHS SC 04/25/24 07:00 04/28/24 06:37 2 UNITS Dextrose 50 ml UD PRN IV 04/24/24 23:45 Sodium Chloride 1,000 ml @ 60 mls/hr [id number] IV 04/24/24 23:45 04/26/24 21:40 60 MLS/HR Acetaminophen/ Hydrocodone Bitart 1 tab Q4HP PRN PO 04/24/24 23:45 Ondansetron HCl 4 mg Q4HP PRN IV 04/24/24 23:45 Docusate Sodium 100 mg BIDPRN PRN PO 04/24/24 23:45 Acetaminophen 650 mg Q6HP PRN PO 04/24/24 23:45 04/25/24 02:59 650 MG Nitroglycerin 0.4 mg Q5MINP PRN SL 04/24/24 23:45 Morphine Sulfate 2 mg Q30M PRN IV 04/24/24 23:45 Carbidopa/Levodopa 2 tab HS PO 04/25/24 22:00 04/27/24 21:10 2 TAB Sotalol HCl 40 mg DAILY PO 04/27/24 10:00 04/28/24 11:32 40 MG Tramadol HCl 25 mg Q4HP PRN PO 04/26/24 17:15 Iron Sucrose 110 ml @ 110 mls/hr DAILY@1200 IV 04/27/24 12:00 05/01/24 12:59 04/27/24 23:18 110 MLS/HR Furosemide 40 mg DAILY PO 04/28/24 10:00 04/28/24 11:31 40 MG Hydralazine HCl 5 mg Q6HP PRN IV 04/27/24 17:45 04/27/24 20:45 5 MG laboratory and microbiology Laboratory Tests 04/25/24 04:37 Test 04/25/24 04:37 Range/Units Serum Glucose 185 H 74-106 mg/dL Problem List SOB PRODUCTIVE COUGH HYPOXIA SEVERE ANEMIA HX OF BLEEDING DIATHESIS NOW BEING TRANSFUSE LEUKOCYTOSIS PMH; HEMATURIA HX OF ORGANIC HD S/P TAVR HX OF AV STENOSIS HTN HFpEF DIASTOLIC DYSFUNCTION 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
--- NOTE | 2024-04-28 15:19 | DVH ---
EXAM: XY CHEST PORTABLE TECHNIQUE: Single frontal chest radiograph CLINICAL HISTORY: BRONCHITIS COMPARISON: XY CHEST PORTABLE on DOS: 04/24/24, XY CHEST PORTABLE on DOS: 10/14/23, XY CHEST PORTABLE o n DOS: 09/21/23 Findings/Impression: Frontal chest radiograph demonstrates no acute osseous or superficial soft tissue abnormalities. Left upper extremity PICC versus midline terminates in the proximal/mid subclavian vein. The trachea is midline. The cardiac silhouette and mediastinum are within normal limits. Small legt pleural effusion with compressive atelectasis, new from prior. A superimposed infectious p rocess is not excluded. No pneumothorax.
[2024-04-28 16:08] LABS: Basophils # (auto) 0.1 10 ^3/uL (0-0.2); Basophils % (auto) 0.7 % (0.0-2.0); Eosinophils # (auto) 0 10 ^3/uL (0-0.8); Eosinophils % (auto) 0.1 % (0.0-7.0); Hematocrit 34.3 % (36.0-46.0); Hemoglobin 10.9 g/dL (12.2-16.2); Lymphocytes # (auto) 0.8 10 ^3/uL (0.4-5.4); Lymphocytes % (auto) 6.1 % (10.0-50.0); Mean Corpuscular Hemoglobin 24.7 pg (28.0-32.0); Mean Corpuscular Hgb Conc. 31.9 g/dL (32.0-36.0); Mean Corpuscular Volume 77.5 fL (80.0-100.0); Monocytes # (auto) 0.8 10 ^3/uL (0-1.3); Monocytes % (auto) 6.3 % (0.0-12.0); Neutrophils # (auto) 11.1 10 ^3/uL (1.6-8.6); Neutrophils % (auto) 86.8 % (37.0-80.0); Platelet Count (auto) 484 10^3/uL (140-450); Red Blood Cells 4.43 10^6/uL (4.0-5.20); Red Cell Distribution Width 19.5 % (11.8-14.3); White Blood Cell 12.7 10^3/uL (4.4-10.8)
[2024-04-28 16:42] LABS: Anion Gap 7 (5-15); Carbon Dioxide 24 mmol/L (20-31); Chloride 104 mmol/L (98-107); Potassium 3.8 mmol/L (3.5-5.1)
[2024-04-28 16:43] LABS: Calcium 9.1 mg/dL (8.7-10.4)
[2024-04-28 16:46] LABS: Sodium 135 mmol/L (136-145)
[2024-04-28 16:48] LABS: BUN/Creatinine Ratio 52.2 (10.0-20.0)
[2024-04-28 16:49] LABS: Blood Urea Nitrogen 48 mg/dL (9-23); Glucose 130 mg/dL (74-106); Magnesium 2.1 mg/dL (1.6-2.6)
[2024-04-28 16:50] LABS: Phosphorus 3.2 mg/dL (2.4-5.1)
--- NOTE | 2024-04-28 17:58 | DVHPN2 ---
Progress Note - Dictate Date Seen: Apr 28, 2024 Medical Necessity Reason Pt with a Central, PICC or Fol: Yes The following are medically ne: Sargent Catheter Reason for sargent catheter: Strict I&O Subjective Patient seen and examined at bedside. Breathing comfortably on room air. Overnight events reviewed. vital signs Vital Sign Date Time Temp Pulse Resp B/P (MAP) Pulse Ox O2 Delivery O2 Flow Rate FiO2 04/28/24 17:00 97.4 64 21 144/62 (89) 96 97.4 04/28/24 10:00 Room Air* 0 21 Total Intake and Output 04/27/24 04/27/24 04/28/24 15:00 23:00 07:00 Intake Total 1310 ml 515 ml Output Total 850 ml 450 ml Balance 460 ml 65 ml medications Current Medications Medications Dose Ordered Sig/Taran Route Start Time Stop Time Status Last Admin Dose Admin Aspirin 81 mg DAILY PO 04/25/24 10:00 04/28/24 11:31 81 MG Famotidine 20 mg Q12HR IV 04/25/24 10:00 04/27/24 21:11 20 MG Levothyroxine Sodium 75 mcg QAM@0600 PO 04/25/24 06:00 04/28/24 06:44 75 MCG Azithromycin 250 ml @ 125 mls/hr DAILY IV 04/25/24 10:00 04/28/24 11:32 125 MLS/HR Albuterol 2.5 mg Q4HPRN PRN NEB 04/24/24 23:45 04/28/24 03:28 2.5 MG Ipratropium [place] 0.5 mg Q4HPRN PRN NEB 04/24/24 23:45 04/28/24 03:29 0.5 MG Apixaban 2.5 mg BID PO 04/25/24 10:00 04/28/24 11:31 2.5 MG Diagnostic Test (Pha) 1 strip ACHS 04/25/24 07:00 04/28/24 06:33 1 STRIP Insulin Human Regular ACHS SC 04/25/24 07:00 04/28/24 06:37 2 UNITS Dextrose 50 ml UD PRN IV 04/24/24 23:45 Acetaminophen/ Hydrocodone Bitart 1 tab Q4HP PRN PO 04/24/24 23:45 Ondansetron HCl 4 mg Q4HP PRN IV 04/24/24 23:45 Docusate Sodium 100 mg BIDPRN PRN PO 04/24/24 23:45 Acetaminophen 650 mg Q6HP PRN PO 04/24/24 23:45 04/25/24 02:59 650 MG Nitroglycerin 0.4 mg Q5MINP PRN SL 04/24/24 23:45 Morphine Sulfate 2 mg Q30M PRN IV 04/24/24 23:45 Carbidopa/Levodopa 2 tab HS PO 04/25/24 22:00 04/27/24 21:10 2 TAB Sotalol HCl 40 mg DAILY PO 04/27/24 10:00 04/28/24 11:32 40 MG Tramadol HCl 25 mg Q4HP PRN PO 04/26/24 17:15 Iron Sucrose 110 ml @ 110 mls/hr DAILY@1200 IV 04/27/24 12:00 05/01/24 12:59 04/28/24 12:00 110 MLS/HR Furosemide 40 mg DAILY PO 04/28/24 10:00 04/28/24 11:31 40 MG Hydralazine HCl 5 mg Q6HP PRN IV 04/27/24 17:45 04/27/24 20:45 5 MG Prednisone 20 mg DAILY PO 04/29/24 10:00 objective Gen.: Patient lying in bed in no apparent distress. Breathing on room air. Head: Normocephalic, atraumatic. Eyes: EOMI/PERRLA. Ears: Normal hearing. Normal anatomy. Neck/trachea: Trachea midline, supple. Nose: Normal external anatomy. Mouth: Moist mucous membranes. Chest: Decreased air entry bilaterally. No wheezing or rhonchi. Cardiovascular: Positive S1, positive S2. Regular rate and rhythm. Abdomen: Positive bowel sounds in all 4 quadrants. Soft, non-tender, non- distended. : Deferred. Rectal: Deferred. Skin: Warm, dry. Intact. Extremities: 2+ radial pulses bilaterally. No lower extremity edema. Neuro: Awake, alert, oriented x3. No gross motor or sensory deficits. Cranial nerves II through XII intact. Gait not assessed. laboratory and microbiology Laboratory Tests 04/28/24 15:37 Test 04/28/24 15:37 Range/Units Serum Glucose 130 H 74-106 mg/dL Assessment/Plan Impression: Acute hypoxic respiratory failure COPD exacerbation Chronic cough. Anemia Morbid obesity BMI 38.8 Events: Breathing on room air No respiratory distress. Continue antibiotics Continue bronchodilators Continue steroids Diurese w/ Lasix Monitor renal function. Monitor electrolytes. Supplement as necessary. Wound care. Get labs including CBC, BMP, mag and phos. Labs and imaging reviewed. Rest of plan as noted below. Plan: Supplemental oxygen PRN Titrate to keep O2 sats above 92%. CXR reviewed, no acute opacities, pleural effusion or pneumothorax. Continue bronchodilators. Continue IV antibiotics IV fluid hydration Monitor renal function. Monitor electrolytes. Supplement as necessary. Monitor ins and outs. Recommend outpatient PFTs to assess lung function. DVT prophylaxis. Prognosis: Poor given patient's multiple co-morbidities. Rest of plan per hospitalist and other consultants. Thank you Dr. Asim Hinton MD, for allowing me to participate in this patient's care. Further recommendations will depend on the patient's clinical course. Please do not hesitate to contact me if you have any questions or concerns. This medical document was created using an electronic medical record system with [employer] dictation system. Although these documentations are being carefully reviewed, there may still be some phonetic and typographical changes. The errors are purely typographical, due to imperfection on the software program, and do not reflect any compromise in the patient's medical care. Dietary Evaluation Review Comments: Continue current plan of care Expected Outcomes/Goals: F/U in 3-5 days Plan discussed with: Patient, Other (FABIO Vega) CC Plasma Assessment Blood Product Administration S: [id number] BENITO WILLARD MD Apr 28, 2024 17:58
[2024-04-28] MEDS: traMADol HCL 50 MG TAB PO PRN (20:36)
[2024-04-29] VITALS (11 sets, daily range): BP systolic 114–142; BP diastolic 59–78; PULSE 60–116; RESP 14–20; TEMP 97.2–98.2; O2SAT 95–100
[2024-04-29] MEDS: predniSONE 20 MG TAB PO SCH (11:23)
--- NOTE | 2024-04-29 22:37 | DVHPN2 ---
Progress Note - Dictate Date Seen: Apr 29, 2024 Medical Necessity Reason Pt with a Central, PICC or Fol: Yes The following are medically ne: Sargent Catheter Reason for sargent catheter: Strict I&O Subjective Patient seen and examined at bedside. Breathing comfortably on room air. Overnight events reviewed. vital signs Vital Sign Date Time Temp Pulse Resp B/P (MAP) Pulse Ox O2 Delivery O2 Flow Rate FiO2 04/29/24 21:00 97.6 60 20 114/74 (87) 97 97.6 04/29/24 18:50 Nasal Cannula* 2 28 Total Intake and Output 04/28/24 04/28/24 04/29/24 15:00 23:00 07:00 Intake Total 880 ml 760 ml 800 ml Output Total 950 ml 900 ml Balance 880 ml -190 ml -100 ml medications Current Medications Medications Dose Ordered Sig/Taran Route Start Time Stop Time Status Last Admin Dose Admin Aspirin 81 mg DAILY PO 04/25/24 10:00 04/29/24 10:00 81 MG Famotidine 20 mg Q12HR IV 04/25/24 10:00 04/29/24 21:13 20 MG Levothyroxine Sodium 75 mcg QAM@0600 PO 04/25/24 06:00 04/29/24 05:34 75 MCG Azithromycin 250 ml @ 125 mls/hr DAILY IV 04/25/24 10:00 04/29/24 10:00 125 MLS/HR Albuterol 2.5 mg Q4HPRN PRN NEB 04/24/24 23:45 04/29/24 10:37 2.5 MG Ipratropium [place] 0.5 mg Q4HPRN PRN NEB 04/24/24 23:45 04/29/24 10:37 0.5 MG Apixaban 2.5 mg BID PO 04/25/24 10:00 04/29/24 21:13 2.5 MG Diagnostic Test (Pha) 1 strip ACHS 04/25/24 07:00 04/29/24 21:49 1 STRIP Insulin Human Regular ACHS SC 04/25/24 07:00 04/28/24 06:37 2 UNITS Dextrose 50 ml UD PRN IV 04/24/24 23:45 Acetaminophen/ Hydrocodone Bitart 1 tab Q4HP PRN PO 04/24/24 23:45 Ondansetron HCl 4 mg Q4HP PRN IV 04/24/24 23:45 Docusate Sodium 100 mg BIDPRN PRN PO 04/24/24 23:45 Acetaminophen 650 mg Q6HP PRN PO 04/24/24 23:45 04/25/24 02:59 650 MG Nitroglycerin 0.4 mg Q5MINP PRN SL 04/24/24 23:45 Morphine Sulfate 2 mg Q30M PRN IV 04/24/24 23:45 Carbidopa/Levodopa 2 tab HS PO 04/25/24 22:00 04/29/24 21:50 2 TAB Sotalol HCl 40 mg DAILY PO 04/27/24 10:00 04/29/24 11:22 40 MG Tramadol HCl 25 mg Q4HP PRN PO 04/26/24 17:15 04/29/24 21:44 25 MG Iron Sucrose 110 ml @ 110 mls/hr DAILY@1200 IV 04/27/24 12:00 05/01/24 12:59 04/29/24 12:00 110 MLS/HR Furosemide 40 mg DAILY PO 04/28/24 10:00 04/29/24 11:23 40 MG Hydralazine HCl 5 mg Q6HP PRN IV 04/27/24 17:45 04/27/24 20:45 5 MG Prednisone 20 mg DAILY PO 04/29/24 10:00 04/29/24 11:23 20 MG objective Gen.: Patient lying in bed in no apparent distress. Breathing on room air. Head: Normocephalic, atraumatic. Eyes: EOMI/PERRLA. Ears: Normal hearing. Normal anatomy. Neck/trachea: Trachea midline, supple. Nose: Normal external anatomy. Mouth: Moist mucous membranes. Chest: Decreased air entry bilaterally. No wheezing or rhonchi. Cardiovascular: Positive S1, positive S2. Regular rate and rhythm. Abdomen: Positive bowel sounds in all 4 quadrants. Soft, non-tender, non- distended. : Deferred. Rectal: Deferred. Skin: Warm, dry. Intact. Extremities: 2+ radial pulses bilaterally. No lower extremity edema. Neuro: Awake, alert, oriented x3. No gross motor or sensory deficits. Cranial nerves II through XII intact. Gait not assessed. laboratory and microbiology Laboratory Tests 04/28/24 15:37 Test 04/28/24 15:37 Range/Units Serum Glucose 130 H 74-106 mg/dL Assessment/Plan Impression: Acute hypoxic respiratory failure COPD exacerbation Chronic cough. Anemia Morbid obesity BMI 38.8 Events: Breathing on room air No respiratory distress. Continue antibiotics Continue bronchodilators Stop IV steroids - transitioned to PO prednisone. On Eliquis BID. Diurese w/ Lasix QD Monitor renal function. Monitor electrolytes. Supplement as necessary. Iron supplementation Monitor hgb Accu-Cheks, ISS. Wound care. Labs and imaging reviewed. Rest of plan as noted below. Plan: Supplemental oxygen PRN Titrate to keep O2 sats above 92%. CXR reviewed, no acute opacities, pleural effusion or pneumothorax. Continue bronchodilators. Continue IV antibiotics IV fluid hydration Monitor renal function. Monitor electrolytes. Supplement as necessary. Monitor ins and outs. Recommend outpatient PFTs to assess lung function. DVT prophylaxis. Prognosis: Poor given patient's multiple co-morbidities. Rest of plan per hospitalist and other consultants. Thank you Dr. Asim Hinton MD, for allowing me to participate in this patient's care. Further recommendations will depend on the patient's clinical course. Please do not hesitate to contact me if you have any questions or concerns. This medical document was created using an electronic medical record system with [email or web address] dictation system. Although these documentations are being carefully reviewed, there may still be some phonetic and typographical changes. The errors are purely typographical, due to imperfection on the software program, and do not reflect any compromise in the patient's medical care. Dietary Evaluation Review Comments: Continue current plan of care Expected Outcomes/Goals: F/U in 3-5 days Plan discussed with: Patient, Other (RN) CC Plasma Assessment Blood Product Administration S: [id number] BENITO WILLARD MD Apr 29, 2024 22:36
[2024-04-30] VITALS (12 sets, daily range): BP systolic 120–135; BP diastolic 62–78; PULSE 61–99; RESP 16–18; TEMP 97.8–97.9; O2SAT 94–100
--- NOTE | 2024-04-30 20:40 | DVHPN2 ---
Progress Note - Dictate Date Seen: Apr 30, 2024 Medical Necessity Reason Pt with a Central, PICC or Fol: Yes The following are medically ne: Sargent Catheter Reason for sargent catheter: Strict I&O Subjective Patient seen and examined at bedside. Breathing comfortably on room air. Overnight events reviewed. vital signs Vital Sign Date Time Temp Pulse Resp B/P (MAP) Pulse Ox O2 Delivery O2 Flow Rate FiO2 04/30/24 19:03 94 Room Air 0.0 04/30/24 19:03 21 04/30/24 17:00 97.8 93 18 123/78 (93) 97.8 Total Intake and Output 04/29/24 04/29/24 04/30/24 15:00 23:00 07:00 Intake Total 360 ml 725 ml 500 ml Output Total 1750 ml 0 ml Balance 360 ml -1025 ml 500 ml medications Current Medications Medications Dose Ordered Sig/Taran Route Start Time Stop Time Status Last Admin Dose Admin Aspirin 81 mg DAILY PO 04/25/24 10:00 04/30/24 09:49 81 MG Famotidine 20 mg Q12HR IV 04/25/24 10:00 04/30/24 09:47 20 MG Levothyroxine Sodium 75 mcg QAM@0600 PO 04/25/24 06:00 04/30/24 06:00 75 MCG Azithromycin 250 ml @ 125 mls/hr DAILY IV 04/25/24 10:00 04/30/24 09:47 125 MLS/HR Albuterol 2.5 mg Q4HPRN PRN NEB 04/24/24 23:45 04/30/24 14:53 2.5 MG Ipratropium [place] 0.5 mg Q4HPRN PRN NEB 04/24/24 23:45 04/30/24 14:53 0.5 MG Apixaban 2.5 mg BID PO 04/25/24 10:00 04/30/24 09:47 2.5 MG Diagnostic Test (Pha) 1 strip ACHS 04/25/24 07:00 04/30/24 17:00 1 STRIP Insulin Human Regular ACHS SC 04/25/24 07:00 04/28/24 06:37 2 UNITS Dextrose 50 ml UD PRN IV 04/24/24 23:45 Acetaminophen/ Hydrocodone Bitart 1 tab Q4HP PRN PO 04/24/24 23:45 Ondansetron HCl 4 mg Q4HP PRN IV 04/24/24 23:45 Docusate Sodium 100 mg BIDPRN PRN PO 04/24/24 23:45 Acetaminophen 650 mg Q6HP PRN PO 04/24/24 23:45 04/25/24 02:59 650 MG Nitroglycerin 0.4 mg Q5MINP PRN SL 04/24/24 23:45 Morphine Sulfate 2 mg Q30M PRN IV 04/24/24 23:45 Carbidopa/Levodopa 2 tab HS PO 04/25/24 22:00 04/29/24 21:50 2 TAB Sotalol HCl 40 mg DAILY PO 04/27/24 10:00 04/30/24 09:50 40 MG Tramadol HCl 25 mg Q4HP PRN PO 04/26/24 17:15 04/29/24 21:44 25 MG Iron Sucrose 110 ml @ 110 mls/hr DAILY@1200 IV 04/27/24 12:00 05/01/24 12:59 04/30/24 11:45 110 MLS/HR Furosemide 40 mg DAILY PO 04/28/24 10:00 04/30/24 09:49 40 MG Hydralazine HCl 5 mg Q6HP PRN IV 04/27/24 17:45 04/27/24 20:45 5 MG Prednisone 20 mg DAILY PO 04/29/24 10:00 04/30/24 10:00 20 MG objective Gen.: Patient lying in bed in no apparent distress. Breathing on room air. Head: Normocephalic, atraumatic. Eyes: EOMI/PERRLA. Ears: Normal hearing. Normal anatomy. Neck/trachea: Trachea midline, supple. Nose: Normal external anatomy. Mouth: Moist mucous membranes. Chest: Decreased air entry bilaterally. No wheezing or rhonchi. Cardiovascular: Positive S1, positive S2. Regular rate and rhythm. Abdomen: Positive bowel sounds in all 4 quadrants. Soft, non-tender, non- distended. : Deferred. Rectal: Deferred. Skin: Warm, dry. Intact. Extremities: 2+ radial pulses bilaterally. No lower extremity edema. Neuro: Awake, alert, oriented x3. No gross motor or sensory deficits. Cranial nerves II through XII intact. Gait not assessed. laboratory and microbiology Laboratory Tests 04/28/24 15:37 Test 04/28/24 15:37 Range/Units Serum Glucose 130 H 74-106 mg/dL Assessment/Plan Impression: Acute hypoxic respiratory failure COPD exacerbation Chronic cough. Anemia Morbid obesity BMI 38.8 Events: Breathing on room air No respiratory distress. Continue antibiotics Continue bronchodilators Continue steroids - PO prednisone. Iron supplementation Monitor hemoglobin On Eliquis BID. Diurese w/ Lasix QD Monitor renal function. Monitor electrolytes. Supplement as necessary. Accu-Cheks, ISS. Wound care. Labs and imaging reviewed. Rest of plan as noted below. Plan: Supplemental oxygen PRN Titrate to keep O2 sats above 92%. CXR reviewed, no acute opacities, pleural effusion or pneumothorax. Continue bronchodilators. Continue IV antibiotics IV fluid hydration Monitor renal function. Monitor electrolytes. Supplement as necessary. Monitor ins and outs. Recommend outpatient PFTs to assess lung function. DVT prophylaxis. Prognosis: Poor given patient's multiple co-morbidities. Rest of plan per hospitalist and other consultants. Thank you Dr. Asim Hinton MD, for allowing me to participate in this patient's care. Further recommendations will depend on the patient's clinical course. Please do not hesitate to contact me if you have any questions or concerns. This medical document was created using an electronic medical record system with [employer] dictation system. Although these documentations are being carefully reviewed, there may still be some phonetic and typographical changes. The errors are purely typographical, due to imperfection on the software program, and do not reflect any compromise in the patient's medical care. Dietary Evaluation Review Comments: Continue current plan of care Expected Outcomes/Goals: F/U in 3-5 days Plan discussed with: Patient, Other (RN) CC Plasma Assessment Blood Product Administration S: [id number] BENITO WILLARD MD Apr 30, 2024 20:40
[2024-05-01] VITALS (11 sets, daily range): BP systolic 112–138; BP diastolic 48–86; PULSE 63–103; RESP 16–20; TEMP 97.5–98.8; O2SAT 94–98
--- NOTE | 2024-05-01 11:12 | MEDREC ---
[facility] ASP Intervention Section I [facility] ASP Intervention: Review courses of therapy (8 DAYS ON AZITHROMYCIN - RECOMMENDED DURATION OF TREATMENT FOR COPD EXACERBATION 3 -5 DAYS PLEASE CONSIDER D/C AZITHROMYCIN IF PATIENT CLINICALLY STABLE ) IGLESIA BAER PHARMACIST May 01, 2024 11:12
--- NOTE | 2024-05-01 13:40 | DVHPN2 ---
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 ANEMIA HYPONATREMIA vital signs Vital Sign Date Time Temp Pulse Resp B/P (MAP) Pulse Ox O2 Delivery O2 Flow Rate FiO2 05/01/24 10:00 97 Room Air* 0 21 05/01/24 09:54 125/75 05/01/24 09:53 79 05/01/24 09:00 97.7 20 97.7 Total Intake and Output 04/30/24 04/30/24 05/01/24 15:00 23:00 07:00 Intake Total 600 ml 1760 ml 1500 ml Output Total 900 ml 1150 ml Balance 600 ml 860 ml 350 ml medications Current Medications Medications Dose Ordered Sig/Taran Route Start Time Stop Time Status Last Admin Dose Admin Aspirin 81 mg DAILY PO 04/25/24 10:00 05/01/24 09:54 81 MG Famotidine 20 mg Q12HR IV 04/25/24 10:00 05/01/24 09:53 20 MG Levothyroxine Sodium 75 mcg QAM@0600 PO 04/25/24 06:00 05/01/24 05:08 75 MCG Azithromycin 250 ml @ 125 mls/hr DAILY IV 04/25/24 10:00 05/01/24 09:53 125 MLS/HR Albuterol 2.5 mg Q4HPRN PRN NEB 04/24/24 23:45 04/30/24 14:53 2.5 MG Ipratropium [place] 0.5 mg Q4HPRN PRN NEB 04/24/24 23:45 04/30/24 14:53 0.5 MG Apixaban 2.5 mg BID PO 04/25/24 10:00 05/01/24 09:54 2.5 MG Diagnostic Test (Pha) 1 strip ACHS 04/25/24 07:00 05/01/24 12:52 1 STRIP Insulin Human Regular ACHS SC 04/25/24 07:00 04/28/24 06:37 2 UNITS Dextrose 50 ml UD PRN IV 04/24/24 23:45 Acetaminophen/ Hydrocodone Bitart 1 tab Q4HP PRN PO 04/24/24 23:45 Ondansetron HCl 4 mg Q4HP PRN IV 04/24/24 23:45 Docusate Sodium 100 mg BIDPRN PRN PO 04/24/24 23:45 Acetaminophen 650 mg Q6HP PRN PO 04/24/24 23:45 04/25/24 02:59 650 MG Nitroglycerin 0.4 mg Q5MINP PRN SL 04/24/24 23:45 Morphine Sulfate 2 mg Q30M PRN IV 04/24/24 23:45 Carbidopa/Levodopa 2 tab HS PO 04/25/24 22:00 04/30/24 21:24 2 TAB Sotalol HCl 40 mg DAILY PO 04/27/24 10:00 05/01/24 09:53 40 MG Tramadol HCl 25 mg Q4HP PRN PO 04/26/24 17:15 05/01/24 05:10 25 MG Furosemide 40 mg DAILY PO 04/28/24 10:00 05/01/24 09:54 40 MG Hydralazine HCl 5 mg Q6HP PRN IV 04/27/24 17:45 04/27/24 20:45 5 MG Prednisone 20 mg DAILY PO 04/29/24 10:00 05/01/24 09:54 20 MG laboratory and microbiology Laboratory Tests 04/28/24 15:37 Test 04/28/24 15:37 Range/Units Serum Glucose 130 H 74-106 mg/dL Problem List SOB PRODUCTIVE COUGH HYPOXIA SEVERE ANEMIA HX OF BLEEDING DIATHESIS NOW BEING TRANSFUSE LEUKOCYTOSIS PMH; HEMATURIA HX OF ORGANIC HD S/P TAVR HX OF AV STENOSIS HTN HFpEF DIASTOLIC DYSFUNCTION AFIB ON SOTALOL HYPERCOAGULABLE STATE HX OF DVT MORBID OBESITY 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
--- NOTE | 2024-05-01 13:42 | DVHDS2 ---
Discharge Summary Date of Admission Apr 25, 2024 at 00:03 Date of Discharge: May 01, 2024 Admitting Diagnosis SOB PRODUCTIVE COUGH HYPOXIA SEVERE ANEMIA HX OF BLEEDING DIATHESIS NOW BEING TRANSFUSE LEUKOCYTOSIS Labs/Diagnostic Data: Laboratory Results Test 05/01/24 05:12 04/28/24 15:37 04/25/24 13:45 04/25/24 04:37 POC Glucose 90 mg/dl (70-106) White Blood Count 12.7 10^3/uL (4.4-10.8) Red Blood Count 4.43 10^6/uL (4.0-5.20) Hemoglobin 10.9 g/dL (12.2-16.2) Hematocrit 34.3 % (36.0-46.0) Mean Corpuscular Volume 77.5 fL (80.0-100.0) Mean Corpuscular Hemoglobin 24.7 pg (28.0-32.0) Mean Corpuscular Hemoglobin Concent 31.9 g/dL (32.0-36.0) Red Cell Distribution Width 19.5 % (11.8-14.3) Platelet Count 484 10^3/uL (140-450) Mean Platelet Volume 7.1 fL (6.9-10.8) Neutrophils (%) (Auto) 86.8 % (37.0-80.0) Lymphocytes (%) (Auto) 6.1 % (10.0-50.0) Monocytes (%) (Auto) 6.3 % (0.0-12.0) Eosinophils (%) (Auto) 0.1 % (0.0-7.0) Basophils (%) (Auto) 0.7 % (0.0-2.0) Neutrophils # (Auto) 11.1 10 ^3/uL (1.6-8.6) Lymphocytes # (Auto) 0.8 10 ^3/uL (0.4-5.4) Monocytes # (Auto) 0.8 10 ^3/uL (0-1.3) Eosinophils # (Auto) 0 10 ^3/uL (0-0.8) Basophils # (Auto) 0.1 10 ^3/uL (0-0.2) Nucleated Red Blood Cells 0.0 % Reticulocyte Count (auto) 2.63 % (0.5-1.5) Sodium Level 135 mmol/L (136-145) Potassium Level 3.8 mmol/L (3.5-5.1) Chloride Level 104 mmol/L (98-107) Carbon Dioxide Level 24 mmol/L (20-31) Anion Gap 7 (5-15) Blood Urea Nitrogen 48 mg/dL (9-23) Creatinine 0.92 mg/dL (0.550-1.02) Glomerular Filtration Rate Calc 63 mL/min (>90) BUN/Creatinine Ratio 52.2 (10.0-20.0) Serum Glucose 130 mg/dL (74-106) Calcium Level 9.1 mg/dL (8.7-10.4) Phosphorus Level 3.2 mg/dL (2.4-5.1) Magnesium Level 2.1 mg/dL (1.6-2.6) Urine Color Light-yellow (Yellow) Urine Clarity Clear (Clear) Urine pH 6.0 (5.0-9.0) Urine Specific [place] 1.007 (1.001-1.035) Urine Protein Negative (Negative) Urine Ketones Negative (Negative) Urine Blood Negative /uL (Negative) Urine Nitrite Negative (Negative) Urine Bilirubin Negative (Negative) Urine Urobilinogen Normal mg/dL (Negative) Urine Leukocyte Esterase Negative /uL (Negative) Urine RBC 1 /hpf (0 - 4) Urine WBC 6 /hpf (0 - 5) Urine Squamous Epithelial Cells None seen /hpf (<5) Urine Bacteria Many /hpf (None Seen) Urine Mucus Few (None Seen) Urine Glucose Normal mg/dL (Normal) Total Bilirubin 0.2 mg/dL (0.2-1.0) Aspartate Amino Transferase (AST) 11 U/L (13-40) Alanine Aminotransferase (ALT) < 9 U/L (7-40) Alkaline Phosphatase 92 U/L (46-116) Total Protein 6.0 g/dL (5.7-8.2) Albumin 3.4 g/dL (3.2-4.8) Test 04/25/24 02:30 04/25/24 00:32 04/24/24 22:35 SARS-CoV-2 Antigen (Rapid) Negative (NEGATIVE) Troponin I High Sensitivity 5 ng/L (</=34) Thyroid Stimulating Hormone (TSH) 0.27 uIU/mL (0.55-4.78) Lactic Acid Level 0.8 mmol/L (0.4-2.0) B-Type Natriuretic Peptide 82.39 pg/mL (0-100) Other Laboratory Tests 04/28/24 15:37 Brief Hx & Hospital Course: SOB PRODUCTIVE COUGH HYPOXIA SEVERE ANEMIA HX OF BLEEDING DIATHESIS NOW BEING TRANSFUSE LEUKOCYTOSIS PMH; HEMATURIA HX OF ORGANIC HD S/P TAVR HX OF AV STENOSIS HTN HFpEF DIASTOLIC DYSFUNCTION AFIB ON SOTALOL HYPERCOAGULABLE STATE HX OF DVT MORBID OBESITY 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 ANEMIA HYPONATREMIA Assessment/Plan TRANSFUSION IRON INFUSION ABX UA BLOOD CX DC SOLUMEDROL UA NEGATIVE CHEST CXR NEGATIVE DC HOME Condition at Discharge: Guarded Final Diagnosis/Problems List PRODUCTIVE COUGH HYPOXIA SEVERE ANEMIA HX OF BLEEDING DIATHESIS NOW BEING TRANSFUSE LEUKOCYTOSIS PMH; HEMATURIA HX OF ORGANIC HD S/P TAVR HX OF AV STENOSIS HTN HFpEF DIASTOLIC DYSFUNCTION AFIB ON SOTALOL HYPERCOAGULABLE STATE HX OF DVT MORBID OBESITY 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 Patient was counseled about treatment plan, medications, possible side effects, patientverbalized understanding. All questions were answered to the best of my ability. This discharge took greater then 30 minutes in planning, reviewing documentation, counseling the patient, and discussing with other team members." ASSESSMENT ASSESSMENT Assessment MONTRELL RANKIN MD May 01, 2024 13:42
[2024-05-01 15:58] LABS: Basophils # (auto) 0 10 ^3/uL (0-0.2); Eosinophils # (auto) 0 10 ^3/uL (0-0.8); Neutrophils # (auto) 12.5 10 ^3/uL (1.6-8.6); Nucleated Red Blood Cells % 0.3 %
[2024-05-01 16:00] LABS: Basophils % (auto) 0.1 % (0.0-2.0); Eosinophils % (auto) 0.1 % (0.0-7.0); Hematocrit 37.5 % (36.0-46.0); Hemoglobin 12.1 g/dL (12.2-16.2); Lymphocytes # (auto) 1.2 10 ^3/uL (0.4-5.4); Lymphocytes % (auto) 8.6 % (10.0-50.0); Mean Corpuscular Hemoglobin 25.3 pg (28.0-32.0); Mean Corpuscular Hgb Conc. 32.2 g/dL (32.0-36.0); Mean Corpuscular Volume 78.6 fL (80.0-100.0); Monocytes # (auto) 0.5 10 ^3/uL (0-1.3); Monocytes % (auto) 3.3 % (0.0-12.0); Neutrophils % (auto) 87.9 % (37.0-80.0); Platelet Count (auto) 334 10^3/uL (140-450); Red Blood Cells 4.77 10^6/uL (4.0-5.20); White Blood Cell 14.3 10^3/uL (4.4-10.8)
[2024-05-01 16:01] LABS: Red Cell Distribution Width 20.5 % (11.8-14.3)
--- NOTE | 2024-05-01 19:39 | DVHPN2 ---
Progress Note - Dictate Date Seen: May 01, 2024 Medical Necessity Reason Pt with a Central, PICC or Fol: Yes The following are medically ne: Sargent Catheter Reason for sargent catheter: Strict I&O Subjective Patient seen and examined at bedside. Breathing comfortably on room air. Overnight events reviewed. vital signs Vital Sign Date Time Temp Pulse Resp B/P (MAP) Pulse Ox O2 Delivery O2 Flow Rate FiO2 05/01/24 17:00 98.8 103 20 129/62 (84) 96 98.8 05/01/24 10:00 Room Air* 0 21 Total Intake and Output 04/30/24 04/30/24 05/01/24 15:00 23:00 07:00 Intake Total 600 ml 1760 ml 1500 ml Output Total 900 ml 1150 ml Balance 600 ml 860 ml 350 ml medications Current Medications Medications Dose Ordered Sig/Taran Route Start Time Stop Time Status Last Admin Dose Admin Aspirin 81 mg DAILY PO 04/25/24 10:00 05/01/24 09:54 81 MG Famotidine 20 mg Q12HR IV 04/25/24 10:00 05/01/24 09:53 20 MG Levothyroxine Sodium 75 mcg QAM@0600 PO 04/25/24 06:00 05/01/24 05:08 75 MCG Azithromycin 250 ml @ 125 mls/hr DAILY IV 04/25/24 10:00 05/01/24 09:53 125 MLS/HR Albuterol 2.5 mg Q4HPRN PRN NEB 04/24/24 23:45 04/30/24 14:53 2.5 MG Ipratropium [place] 0.5 mg Q4HPRN PRN NEB 04/24/24 23:45 04/30/24 14:53 0.5 MG Apixaban 2.5 mg BID PO 04/25/24 10:00 05/01/24 09:54 2.5 MG Diagnostic Test (Pha) 1 strip ACHS 04/25/24 07:00 05/01/24 12:52 1 STRIP Insulin Human Regular ACHS SC 04/25/24 07:00 04/28/24 06:37 2 UNITS Dextrose 50 ml UD PRN IV 04/24/24 23:45 Acetaminophen/ Hydrocodone Bitart 1 tab Q4HP PRN PO 04/24/24 23:45 Ondansetron HCl 4 mg Q4HP PRN IV 04/24/24 23:45 Docusate Sodium 100 mg BIDPRN PRN PO 04/24/24 23:45 Acetaminophen 650 mg Q6HP PRN PO 04/24/24 23:45 04/25/24 02:59 650 MG Nitroglycerin 0.4 mg Q5MINP PRN SL 04/24/24 23:45 Morphine Sulfate 2 mg Q30M PRN IV 04/24/24 23:45 Carbidopa/Levodopa 2 tab HS PO 04/25/24 22:00 04/30/24 21:24 2 TAB Sotalol HCl 40 mg DAILY PO 04/27/24 10:00 05/01/24 09:53 40 MG Tramadol HCl 25 mg Q4HP PRN PO 04/26/24 17:15 05/01/24 05:10 25 MG Furosemide 40 mg DAILY PO 04/28/24 10:00 05/01/24 09:54 40 MG Hydralazine HCl 5 mg Q6HP PRN IV 04/27/24 17:45 04/27/24 20:45 5 MG Prednisone 20 mg DAILY PO 04/29/24 10:00 05/01/24 09:54 20 MG objective Gen.: Patient lying in bed in no apparent distress. Breathing on room air. Head: Normocephalic, atraumatic. Eyes: EOMI/PERRLA. Ears: Normal hearing. Normal anatomy. Neck/trachea: Trachea midline, supple. Nose: Normal external anatomy. Mouth: Moist mucous membranes. Chest: Decreased air entry bilaterally. No wheezing or rhonchi. Cardiovascular: Positive S1, positive S2. Regular rate and rhythm. Abdomen: Positive bowel sounds in all 4 quadrants. Soft, non-tender, non- distended. : Deferred. Rectal: Deferred. Skin: Warm, dry. Intact. Extremities: 2+ radial pulses bilaterally. No lower extremity edema. Neuro: Awake, alert, oriented x3. No gross motor or sensory deficits. Cranial nerves II through XII intact. Gait not assessed. laboratory and microbiology Laboratory Tests 05/01/24 15:49 04/28/24 15:37 Test 04/28/24 15:37 Range/Units Serum Glucose 130 H 74-106 mg/dL Assessment/Plan Impression: Acute hypoxic respiratory failure COPD exacerbation Chronic cough. Anemia Morbid obesity BMI 38.8 Events: Breathing on room air No respiratory distress. Continue antibiotics Continue bronchodilators Continue steroids - PO prednisone. Iron supplementation Monitor hemoglobin On Eliquis BID. Diurese w/ Lasix QD Monitor renal function. Monitor electrolytes. Supplement as necessary. Accu-Cheks, ISS - note, pt refused insulin dose. Wound care. Labs and imaging reviewed. Rest of plan as noted below. Plan: Supplemental oxygen PRN Titrate to keep O2 sats above 92%. CXR reviewed, no acute opacities, pleural effusion or pneumothorax. Continue bronchodilators. Continue IV antibiotics IV fluid hydration Monitor renal function. Monitor electrolytes. Supplement as necessary. Monitor ins and outs. Recommend outpatient PFTs to assess lung function. DVT prophylaxis. Prognosis: Poor given patient's multiple co-morbidities. Rest of plan per hospitalist and other consultants. Thank you Dr. Asim Hinton MD, for allowing me to participate in this patient's care. Further recommendations will depend on the patient's clinical course. Please do not hesitate to contact me if you have any questions or concerns. This medical document was created using an electronic medical record system with [employer] dictation system. Although these documentations are being carefully reviewed, there may still be some phonetic and typographical changes. The errors are purely typographical, due to imperfection on the software program, and do not reflect any compromise in the patient's medical care. Dietary Evaluation Review Comments: Continue current plan of care Expected Outcomes/Goals: F/U in 3-5 days Plan discussed with: Patient, Other (FABIO Vilchis) CC Plasma Assessment Blood Product Administration S: [id number] BENITO WILLARD MD May 01, 2024 19:39
== END 2024-05-01 22:16 | disposition home health service (06) | DRG 189 ==
LOC: EDBD 21:39 → ER 21:39 → TELE 04-25 00:03 → TELE-WESTW 04-25 21:10
PROVIDERS: ADMIT Nurse Practitioner Family; ATTEND Internal Medicine Cardiovascular Disease
PROC: 30233N1 Transfusion of Nonautologous Red Blood Cells into Peripheral Vein, Percutaneous Approach (ICD-10-PCS; principal; 2024-04-25)
DX: J96.01 Acute respiratory failure with hypoxia (principal); J44.1 Chronic obstructive pulmonary disease with (acute) exacerbation; E87.1 Hypo-osmolality and hyponatremia; I13.0 Hypertensive heart and chronic kidney disease with heart failure and stage 1 through stage 4 chronic kidney disease, or unspecified chronic kidney disease; I50.32 Chronic diastolic (congestive) heart failure; D68.59 Other primary thrombophilia; N13.6 Pyonephrosis; E66.01 Morbid (severe) obesity due to excess calories; Z20.822 Contact with and (suspected) exposure to COVID-19; D64.9 Anemia, unspecified; D75.839 Thrombocytosis, unspecified; I48.91 Unspecified atrial fibrillation; D72.829 Elevated white blood cell count, unspecified; E11.22 Type 2 diabetes mellitus with diabetic chronic kidney disease; E03.9 Hypothyroidism, unspecified; N18.9 Chronic kidney disease, unspecified; Z74.01 Bed confinement status; Z86.718 Personal history of other venous thrombosis and embolism; Z88.1 Allergy status to other antibiotic agents; Z88.0 Allergy status to penicillin; Z88.2 Allergy status to sulfonamides; Z88.8 Allergy status to other drugs, medicaments and biological substances; Z87.442 Personal history of urinary calculi; Z82.49 Family history of ischemic heart disease and other diseases of the circulatory system; Z82.5 Family history of asthma and other chronic lower respiratory diseases; Z81.8 Family history of other mental and behavioral disorders; Z95.2 Presence of prosthetic heart valve; Z68.38 Body mass index [BMI] 38.0-38.9, adult; Q63.1 Lobulated, fused and horseshoe kidney
CPT/HCPCS: 36415; 71045; 80048; 80053; 81001; 82962; 83605; 83735; 83880; 84100; 84443; 84484; 85025; 85045; 86850; 86900; 86901; 86920; 87426; 94640; G0378; J1756; J1815; J3490

== ENCOUNTER → 2024-05-10 | Outpatient (CLI) | payer MEDICARE, OTHER, MEDICAID ==
[~2024-05-10] MED LIST changes: +ASPI-325 PO; +CLOB0.059 TOP; +CLOT1PAK; +FURO40TA4 PO; +ONDA-188 PO; +ROPI1TAB78 PO; +TRAM50TA2 PO
[2024-05-10 12:15] VITALS: BP 144/69; PULSE 63; RESP 16; O2SAT 96
[2024-05-10 13:10] VITALS: BP 144/69; PULSE 63; RESP 16; O2SAT 96
== END | disposition home or self-care (01) ==
LOC: CHF HDHVI 12:01
PROVIDERS: ATTEND Internal Medicine Cardiovascular Disease
DX: Z01.818 Encounter for other preprocedural examination (principal); S50.911A Unspecified superficial injury of right forearm, initial encounter; X58.XXXA Exposure to other specified factors, initial encounter; Y93.89 Activity, other specified; Y92.89 Other specified places as the place of occurrence of the external cause; Y99.8 Other external cause status
CPT/HCPCS: G0463

== ENCOUNTER → 2024-06-26 | Outpatient (CLI) | payer MEDICARE, OTHER, MEDICAID ==
--- NOTE | 2024-06-26 14:37 | DVH ---
CT ABDOMEN AND PELVIS WITHOUT CONTRAST CLINICAL HISTORY: HYDRONEPHRSIS TECHNIQUE: Multiple contiguous axial images of the abdomen and pelvis without intravenous and with or al contrast. The images were reformatted degenerate coronal and sagittal reconstructions. All CT scans at this medical facility are performed using dose modulation techniques as appropriate t o a performed exam including the following:Automated exposure control was utilized; adjustment of the MA and/or KV according to patient size; and use of iterative reconstruction technique. Radiation Dose Information: CT Dose: CTDI volume is 32.42 mGy. Dose-length product is 1636.64 mGy*cm Comparison: CT CT AB PEL WITH IV CON ONLY on DOS: 12/29/23, CT CT AB PEL WO CON-NO ORAL OR IV on DOS: FINDINGS: Evaluation of the abdomen and pelvis is limited without intravenous contrast. There is redemonstration of a horseshoe kidney with a small atrophic right renal moiety. There is no evidence of left renal calculus or hydronephrosis.. There is likely left extrarenal pelvis. There is no evidence of a ureteral calculus or hydroureter. The liver, gallbladder, pancreas, adrenal glands, and spleen appear within normal limits. There is no gross evidence of abdominal lymphadenopathy. There is no free fluid or free air. There is a stable fat containing midline periumbilical hernia. Again seen is a large hiatal hernia. The small and large bowel loops demonstrate normal caliber. Th ere is moderate amount of stool in the rectum. The abdominal aorta and IVC appear within normal limits. The bladder appears unremarkable for the degree of distention. There is no obvious bladder calculus. Pelvic organ appears within normal limits. There is a stable 3.2 cm cystic structure in the left pelv is likely an ovarian cyst. There is no gross evidence of a pelvic mass. There is no free fluid collec tion. Lung bases are clear. There is no acute osseous abnormality. IMPRESSION: 1. Redemonstration of a horseshoe kidney with a small atrophic right renal moiety. 2. There is no evidence of left renal calculus or hydronephrosis. There is likely left extrarenal pel vis. 3. Large hiatal hernia. 4. Moderate amount of stool in the rectum. 5. Stable 3.2 cm cystic structure in the left pelvis likely an ovarian cyst. 6. Stable fat containing midline periumbilical hernia. HS:Y
== END | disposition home or self-care (01) ==
LOC: Rad HDHVI 12:24
PROVIDERS: ATTEND Internal Medicine Cardiovascular Disease
DX: N26.1 Atrophy of kidney (terminal) (principal); K44.9 Diaphragmatic hernia without obstruction or gangrene; K42.9 Umbilical hernia without obstruction or gangrene; N94.89 Other specified conditions associated with female genital organs and menstrual cycle; N13.30 Unspecified hydronephrosis
CPT/HCPCS: 74176

== ENCOUNTER → 2024-08-07 | Outpatient (CLI) | payer MEDICARE, MEDICAID, OTHER ==
[~2024-08-07] VITALS: Ht 165.1 cm; Wt 122.7 kg
[2024-08-07] VITALS (10 sets, daily range): BP systolic 99–128; BP diastolic 55–76; PULSE 57–85; RESP 20; O2SAT 98
[2024-08-07] MEDS: metOLazone 5 MG TAB ONE (11:02)
[2024-08-07] MEDS: BUMETANIDE INJECTION 10 ML ONE (11:02)
[2024-08-07] MEDS: MILRINONE 20MG/100ML 100 ML IV ONE ×2 (11:02→12:07)
[2024-08-07] MEDS: BUMETANIDE 2.5mg/10ml (0.25 mg/ml) INJ IV ONE (15:36)
[2024-08-07] MEDS: metOLazone 5 MG TAB PO ONE (15:36)
== END | disposition home or self-care (01) ==
LOC: CHF HDHVI 11:44
PROVIDERS: ATTEND Internal Medicine Cardiovascular Disease
DX: I13.0 Hypertensive heart and chronic kidney disease with heart failure and stage 1 through stage 4 chronic kidney disease, or unspecified chronic kidney disease (principal); E11.22 Type 2 diabetes mellitus with diabetic chronic kidney disease; N18.4 Chronic kidney disease, stage 4 (severe); I50.33 Acute on chronic diastolic (congestive) heart failure; J44.9 Chronic obstructive pulmonary disease, unspecified; E66.01 Morbid (severe) obesity due to excess calories; E03.9 Hypothyroidism, unspecified; Z88.0 Allergy status to penicillin; Z88.1 Allergy status to other antibiotic agents; Z88.2 Allergy status to sulfonamides; Z88.8 Allergy status to other drugs, medicaments and biological substances; Z68.38 Body mass index [BMI] 38.0-38.9, adult
CPT/HCPCS: 96365; 96366; 96375; G0463; J1642; J2260

== ENCOUNTER → 2024-08-17 | Outpatient (CLI) | payer MEDICARE, OTHER, MEDICAID ==
[2024-08-17] VITALS (11 sets, daily range): BP systolic 98–127; BP diastolic 50–72; PULSE 59–106; RESP 16; O2SAT 99
[2024-08-17] MEDS: MILRINONE 20MG/100ML 100 ML IV ONE ×2 (11:22→11:30)
[2024-08-17] MEDS: metOLazone 5 MG TAB PO ONE (11:25)
[2024-08-17] MEDS: BUMETANIDE INJECTION 10 ML ONE (15:09)
[2024-08-17] MEDS: ONDANSETRON HCL 4 MG/2 ML VIAL ONE (15:22)
[2024-08-17] MEDS: ONDANSETRON HCL 4 MG/2 ML VIAL IV ONE (15:24)
[2024-08-17] MEDS: BUMETANIDE 2.5mg/10ml (0.25 mg/ml) INJ IV ONE (15:28)
== END | disposition home or self-care (01) ==
LOC: CHF HDHVI 11:19
PROVIDERS: ATTEND Internal Medicine Cardiovascular Disease
DX: I13.0 Hypertensive heart and chronic kidney disease with heart failure and stage 1 through stage 4 chronic kidney disease, or unspecified chronic kidney disease (principal); E11.22 Type 2 diabetes mellitus with diabetic chronic kidney disease; N18.4 Chronic kidney disease, stage 4 (severe); I50.33 Acute on chronic diastolic (congestive) heart failure; I48.91 Unspecified atrial fibrillation; I25.10 Atherosclerotic heart disease of native coronary artery without angina pectoris; R60.9 Edema, unspecified; J44.9 Chronic obstructive pulmonary disease, unspecified; E03.9 Hypothyroidism, unspecified; E66.01 Morbid (severe) obesity due to excess calories; Z68.38 Body mass index [BMI] 38.0-38.9, adult; Z88.0 Allergy status to penicillin; Z88.1 Allergy status to other antibiotic agents; Z88.2 Allergy status to sulfonamides; Z88.8 Allergy status to other drugs, medicaments and biological substances; Z86.718 Personal history of other venous thrombosis and embolism; Z79.899 Other long term (current) drug therapy; Z87.442 Personal history of urinary calculi; Z90.89 Acquired absence of other organs; Z95.2 Presence of prosthetic heart valve
CPT/HCPCS: 96365; 96366; 96375; G0463; J1642; J2260; J2405

== ENCOUNTER → 2024-08-25 | Outpatient (CLI) | payer MEDICARE, OTHER, MEDICAID ==
[~2024-08-25] VITALS: Ht 30.5 cm; Wt 122.7 kg
[2024-08-25] VITALS (11 sets, daily range): BP systolic 99–129; BP diastolic 31–52; PULSE 51–69; RESP 16–18; O2SAT 100
[2024-08-25] MEDS: MILRINONE 20MG/100ML 100 ML IV ONE ×2 (11:02→11:20)
[2024-08-25] MEDS: BUMETANIDE INJECTION 10 ML ONE (15:00)
[2024-08-25] MEDS: metOLazone 5 MG TAB ONE (15:00)
[2024-08-25] MEDS: metOLazone 5 MG TAB PO ONE (15:03)
[2024-08-25] MEDS: BUMETANIDE 2.5mg/10ml (0.25 mg/ml) INJ IV ONE (15:06)
== END | disposition home or self-care (01) ==
LOC: CHF HDHVI 10:49
PROVIDERS: ATTEND Internal Medicine Cardiovascular Disease
DX: I13.0 Hypertensive heart and chronic kidney disease with heart failure and stage 1 through stage 4 chronic kidney disease, or unspecified chronic kidney disease (principal); E11.22 Type 2 diabetes mellitus with diabetic chronic kidney disease; N18.4 Chronic kidney disease, stage 4 (severe); I50.33 Acute on chronic diastolic (congestive) heart failure; R60.1 Generalized edema; I25.10 Atherosclerotic heart disease of native coronary artery without angina pectoris; I48.91 Unspecified atrial fibrillation; J44.9 Chronic obstructive pulmonary disease, unspecified; E66.01 Morbid (severe) obesity due to excess calories; E03.9 Hypothyroidism, unspecified; Z68.39 Body mass index [BMI] 39.0-39.9, adult; Z88.1 Allergy status to other antibiotic agents; Z88.8 Allergy status to other drugs, medicaments and biological substances; Z88.0 Allergy status to penicillin; Z88.2 Allergy status to sulfonamides; Z95.2 Presence of prosthetic heart valve; Z86.718 Personal history of other venous thrombosis and embolism; Z79.899 Other long term (current) drug therapy; Z87.442 Personal history of urinary calculi; Z90.89 Acquired absence of other organs
CPT/HCPCS: 96365; 96366; 96375; G0463; J1642; J2260

== ENCOUNTER → 2024-08-30 | Outpatient (CLI) | payer MEDICARE, OTHER, MEDICAID ==
[2024-08-30 13:08] VITALS: BP 107/49; PULSE 62; RESP 18; O2SAT 95
[2024-08-30] MEDS: BUMETANIDE INJECTION 10 ML ONE (13:10)
[2024-08-30] MEDS: BUMETANIDE 2.5mg/10ml (0.25 mg/ml) INJ IV ONE (13:12)
== END | disposition home or self-care (01) ==
LOC: CHF HDHVI 13:07
PROVIDERS: ATTEND Internal Medicine Cardiovascular Disease
DX: R06.9 Unspecified abnormalities of breathing (principal); E11.22 Type 2 diabetes mellitus with diabetic chronic kidney disease; I13.0 Hypertensive heart and chronic kidney disease with heart failure and stage 1 through stage 4 chronic kidney disease, or unspecified chronic kidney disease; N18.4 Chronic kidney disease, stage 4 (severe); I50.9 Heart failure, unspecified; E03.9 Hypothyroidism, unspecified; I25.10 Atherosclerotic heart disease of native coronary artery without angina pectoris; J44.9 Chronic obstructive pulmonary disease, unspecified
CPT/HCPCS: 96374; G0463

== ENCOUNTER → 2024-09-06 | Outpatient (CLI) | payer MEDICARE, OTHER, MEDICAID ==
[2024-09-06] MEDS: BUMETANIDE INJECTION 10 ML ONE (12:23)
[2024-09-06] MEDS: POTASSIUM CHL 10 Meq TABLET PO ONE (12:24)
[2024-09-06 12:25] VITALS: BP 136/80; PULSE 67; RESP 18; O2SAT 99
[2024-09-06] MEDS: GENTAMICIN SULFATE 4 ML ONE (12:33)
[2024-09-06] MEDS: GENTAMICIN SULFATE 2 ML ONE (12:36)
[2024-09-06] MEDS: GENTAMICIN SULFATE 180 MG in D5W 5% 100 ML IV ONE (12:41)
[2024-09-06] MEDS: BUMETANIDE 2.5mg/10ml (0.25 mg/ml) INJ IV ONE (13:43)
[2024-09-06 13:45] VITALS: BP 97/53; PULSE 58; RESP 18; O2SAT 99
[2024-09-06] MEDS: POTASSIUM CHL 20 Meq TABLET PO ONE (13:46)
== END | disposition home or self-care (01) ==
LOC: CHF HDHVI 12:14
PROVIDERS: ATTEND Internal Medicine Cardiovascular Disease
DX: N39.0 Urinary tract infection, site not specified (principal); I13.0 Hypertensive heart and chronic kidney disease with heart failure and stage 1 through stage 4 chronic kidney disease, or unspecified chronic kidney disease; E11.22 Type 2 diabetes mellitus with diabetic chronic kidney disease; I50.33 Acute on chronic diastolic (congestive) heart failure; N18.4 Chronic kidney disease, stage 4 (severe); I25.10 Atherosclerotic heart disease of native coronary artery without angina pectoris; J44.9 Chronic obstructive pulmonary disease, unspecified; E03.9 Hypothyroidism, unspecified; Z79.899 Other long term (current) drug therapy
CPT/HCPCS: 96365; 96375; G0463; J1580; J1642

== ENCOUNTER → 2024-09-13 | Outpatient (CLI) | payer MEDICARE, OTHER, MEDICAID ==
[2024-09-13 12:22] VITALS: BP 116/99; PULSE 60; RESP 20; O2SAT 98
[2024-09-13] MEDS: BUMETANIDE INJECTION 10 ML ONE (12:23)
[2024-09-13] MEDS: BUMETANIDE 2.5mg/10ml (0.25 mg/ml) INJ IV ONE (12:27)
[2024-09-13] MEDS: POTASSIUM CHL 10 Meq TABLET PO ONE (13:05)
== END | disposition home or self-care (01) ==
LOC: CHF HDHVI 12:18
PROVIDERS: ATTEND Internal Medicine Cardiovascular Disease
DX: I13.0 Hypertensive heart and chronic kidney disease with heart failure and stage 1 through stage 4 chronic kidney disease, or unspecified chronic kidney disease (principal); E11.22 Type 2 diabetes mellitus with diabetic chronic kidney disease; I50.33 Acute on chronic diastolic (congestive) heart failure; N18.4 Chronic kidney disease, stage 4 (severe); I25.10 Atherosclerotic heart disease of native coronary artery without angina pectoris; J44.9 Chronic obstructive pulmonary disease, unspecified; E03.9 Hypothyroidism, unspecified; Z79.899 Other long term (current) drug therapy; Z86.718 Personal history of other venous thrombosis and embolism
CPT/HCPCS: 96374; G0463; J1642

== ENCOUNTER → 2024-09-20 | Outpatient (CLI) | payer MEDICARE, OTHER, MEDICAID ==
[2024-09-20 11:24] VITALS: BP 97/58; PULSE 81; RESP 18; O2SAT 98
[2024-09-20] MEDS: SODIUM CHL 3% 200 ML IV ONE (11:36)
[2024-09-20 15:50] VITALS: BP 90/59; PULSE 88; RESP 18; O2SAT 98
== END | disposition home or self-care (01) ==
LOC: CHF HDHVI 11:13
PROVIDERS: ATTEND Internal Medicine Cardiovascular Disease
DX: E87.1 Hypo-osmolality and hyponatremia (principal); I13.0 Hypertensive heart and chronic kidney disease with heart failure and stage 1 through stage 4 chronic kidney disease, or unspecified chronic kidney disease; E11.22 Type 2 diabetes mellitus with diabetic chronic kidney disease; I50.33 Acute on chronic diastolic (congestive) heart failure; N18.4 Chronic kidney disease, stage 4 (severe); J44.9 Chronic obstructive pulmonary disease, unspecified; I25.10 Atherosclerotic heart disease of native coronary artery without angina pectoris; I48.91 Unspecified atrial fibrillation; E03.9 Hypothyroidism, unspecified; Z79.899 Other long term (current) drug therapy
CPT/HCPCS: 96365; 96366; G0463; J1642

== ENCOUNTER 2024-11-13 12:59 | Outpatient (CLI) | payer MEDICARE, OTHER, MEDICAID ==
[~2024-11-13] VITALS: Ht 30.5 cm; Wt 0.5 kg
[2024-11-13 12:50] VITALS: BP 124/71; PULSE 60; RESP 16; O2SAT 96
[2024-11-13] MEDS: BUMETANIDE 2.5mg/10ml (0.25 mg/ml) INJ IV ONE (13:03)
[2024-11-13] MEDS: POTASSIUM CHL 20 Meq TABLET PO ONE (13:07)
[2024-11-13] MEDS: metOLazone 5 MG TAB PO ONE (13:07)
[2024-11-13 13:10] VITALS: BP 119/71; PULSE 65; RESP 16; O2SAT 96
[2024-11-13] MEDS: POTASSIUM CHL 10 Meq TABLET PO ONE (13:10)
[2024-11-13] MEDS: metOLazone 5 MG TAB ONE (13:10)
[2024-11-13] MEDS: BUMETANIDE INJECTION 10 ML ONE (13:11)
== END 2024-11-13 17:00 | disposition home or self-care (01) ==
LOC: CHF HDHVI 12:59
PROVIDERS: ATTEND Internal Medicine Cardiovascular Disease
DX: I13.0 Hypertensive heart and chronic kidney disease with heart failure and stage 1 through stage 4 chronic kidney disease, or unspecified chronic kidney disease (principal); E11.22 Type 2 diabetes mellitus with diabetic chronic kidney disease; I50.33 Acute on chronic diastolic (congestive) heart failure; N18.4 Chronic kidney disease, stage 4 (severe); I25.10 Atherosclerotic heart disease of native coronary artery without angina pectoris; J44.9 Chronic obstructive pulmonary disease, unspecified; E03.9 Hypothyroidism, unspecified; I48.0 Paroxysmal atrial fibrillation; M19.90 Unspecified osteoarthritis, unspecified site; E66.01 Morbid (severe) obesity due to excess calories; Z68.39 Body mass index [BMI] 39.0-39.9, adult; Z79.01 Long term (current) use of anticoagulants; Z79.899 Other long term (current) drug therapy; Z86.718 Personal history of other venous thrombosis and embolism; Z87.440 Personal history of urinary (tract) infections; Z88.1 Allergy status to other antibiotic agents; Z88.8 Allergy status to other drugs, medicaments and biological substances; Z88.0 Allergy status to penicillin; Z88.2 Allergy status to sulfonamides; Z87.442 Personal history of urinary calculi; Z95.2 Presence of prosthetic heart valve
CPT/HCPCS: 96374; G0463; J1642

== ENCOUNTER 2024-12-29 19:21 | Inpatient (IN) | payer MEDICARE, OTHER, MEDICAID ==
[~2024-12-29] VITALS: Ht 170.2 cm; Wt 101.5 kg
[~2024-12-29 19:21] MED LIST changes: +BUMEX2MG PO; +CARB-112 PO; +CLOTCRE3 EX; +LINA290C PO; +METO5TAB5 PO
--- NOTE | 2024-12-29 20:27 | ED.PDOC ---
History of Present Illness HPI Comments This is a 79-year-old bed-bound female with past medical history of hypertension, CHF, hypothyroidism, AFib on Eliquis, kidney disease, psoriasis the ED via EMS for with a chief complaint of generalized weakness, diarrhea and nausea for last 2 days prior to this visit. According to the EMS the patient systolic blood pressure was 70 when they found the patient in home. According to the patient she has diarrhea for last 2 days probably eating food from outside, nausea and generalized weakness. She has a very sensitive skin and multiple psoriatic patches and erythema on both arms, she has a PICC line on the left for last 7 month because it is very hard to find veins in her arms and she also mentioned few psoriatic patches on her buttock without any obvious ulceration. She denies fever, chills, shortness of breath, abdominal pain, vomiting, dysuria, hematuria or any positive sick contact. PCP: Dr. Cifuentes Chief Complaint: General Weakness Time Seen by MD: 20:07 Primary Care Provider: UNKNOWN Allergies: Coded Allergies: Penicillins (Unverified Allergy, Severe, 03/16/15) Sulfa Antibiotics (Unverified Allergy, Severe, 03/16/15) Morphine (Verified Allergy, Intermediate, ALTERED, 01/31/18) PER PATIENT AND HER DAUGHTER SHE CAN NOT HAVE Ceftriaxone (Verified Allergy, Unknown, 01/31/18) COUGH AND CHILLS Home Meds Reported Medications Tramadol Hcl (Tramadol Hcl) 50 Mg Tab, 1 TAB PO QID 04/25/24 Furosemide (Furosemide) 40 Mg Tab, 1 TAB PO DAILY 04/25/24 Aspirin (Aspirin Low Dose) 81 Mg Tab, 1 TAB PO DAILY 04/25/24 Ropinirole Hydrochloride (Ropinirole Hcl) 1 Mg Tab, 1 TAB PO 04/25/24 Pfcsnzrksjeo-Kcikbezkefswv-Whu (Dermacinrx Therazole Chuy 1-0.05 & 20 %) 1 Chuy Chuy 04/25/24 Clobetasol Propionate (Clobetasol Propionate) 0.05 % Deepika, TOP 04/25/24 Ondansetron HCl (Ondansetron Hydrochloride) 4 Mg Tab, 1 TAB PO Q8HPRN 04/25/24 Sotalol Hcl (Sotalol Hcl) 80 Mg Tab, 0.5 TAB PO DAILY, #60 TAB 5 Refills 04/25/24 Furosemide (Lasix) 20 Mg Tb, 20 MG PO DAILY, TAB 11/17/23 Apixaban Base (ELIQUIS) 2.5 Mg Tab, 2.5 MG PO BID, TAB 11/17/23 Esomeprazole Magnesium (Esomeprazole Magnesium Dr) 40 Mg Cap, 40 MG PO DAILY, CAP 11/03/23 Acetaminophen (8 Hour Arthritis Pain Rel) 650 Mg Tab, 650 MG PO TID for ARTHRITIS 01/23/22 Betamethasone Dipropionate (Betamethasone Dipropionat) 0.05 % Cre, 1 APPLIC TOP DIRECTED PRN for ECZEMA RASH 01/23/22 Levodopa W/Carbidopa (Sinemet) 10 /100 Tab, 2 TAB PO HS for TREMORS 01/23/22 Sotalol HCl (Sotalol Hydrochloride AF) 80 Mg Tab, 0.5 TAB PO DAILY for ARRYTHMIA 01/23/22 Clotrimazole W/ Betamethasone (Clotrimazole/Betamethason) Diprop Lot, 1 APPLIC TOP BID PRN for ECZEMA RASH 02/05/20 Albuterol Sulfate (Albuterol Sulfate) 0.083 % Neb, 1 VIAL NEB Q6HR PRN for SHORTNESS OF BREATH 02/05/20 Fluticasone Propionate (Nasal) (Flonase Allergy Relief) 50 Mcg/Act Spr, 1 SPR NA BID PRN for ALLERGIES 02/05/20 Ondansetron (Zofran) 4 Mg Tab, 1 TAB PO TID PRN for NAUSEA OR VOMITING 02/05/20 Aspirin (ASPIRIN 81) 81 Mg Tab, 1 TAB PO DAILY for HEART ATTACK PREVENTION 02/05/20 Potassium Chloride (Potassium Chloride ER) 20 Meq Tab, 1 TAB PO DAILY for S UPPLEMENT 02/05/20 Apremilast Base (Otezla) 30 Mg Tab, 1 TAB PO BID for ARTHRITIS 03/28/19 Tramadol HCl (Tramadol Hydrochloride) 50 Mg Tab, 1 TAB PO QID PRN for MODERATE PAIN (4-6 PAIN SCALE) 10/30/18 Albuterol Sulfate (VENTOLIN MDI) 90 Mcg Ih, 2 PUFF IN Q6HR PRN for SHORTNESS OF BREATH 04/21/18 Levothyroxine Sodium (Levothyroxine Sodium) 75 Mcg Tab, 1 TAB PO DAILY for HYPOTHYROIDISM, 5 Refills 03/17/15 Ropinirole Hydrochloride (Requip) 1 Mg Tab, 1 TAB PO HS for RESTLESS LEGS 03/17/15 Information Source: Patient, Emergency Med Personnel Mode of Arrival: EMS Severity: Moderate Timing: Days Duration: Since onset Prehospital treatment: None Past Medical History PAST MEDICAL HISTORY: AFIB, Anemia, Arthritis, CHF, CKF, DM, HTN, Kidney Stones, Thyroid Surgical History: Tonsillectomy MANAGER FAST FOOD History: No Pertinent MANAGER FAST FOOD History Family History Family History: Reviewed,noncontributory to illness, No family hx of Cancer, No family hx of DM, No family hx of HTN, No family hx ofKidney christine, No family hx of Liver christine, No family hx of Lung christine, No family hx of Stroke, Family hx of heart christine Social History Smoker: Non-Smoker Alcohol: Denies ETOH Use Drugs: Denies Drug Use Lives In: Home, Assisted Constitutional: reports: fatigue, weakness; denies: chills, diaphoresis, fever, malaise, sweats, others EENTM: denies: blurred vision, double vision, ear bleeding, ear discharge, ear drainage, ear pain, ear ringing, eye pain, eye redness, hearing loss, mouth pain, mouth swelling, nasal discharge, nose bleeding, nose congestion, nose pain, photophobia, tearing, throat pain, throat swelling, voice changes, others Respiratory: denies: cough, hemoptysis, orthopnea, SOB at rest, shortness of breath, SOB with excertion, stridor, wheezing, others Cardiovascular: denies: chest pain, dizzy spells, diaphoresis, Dyspnea on exertion, edema, irregular heart beat, left arm pain, lightheadedness, palpitations, PND, syncope, others Gastrointestinal: reports: diarrhea; denies: abdomen distended, abdominal pain, blood streaked bowels, constipated, dysphagia, difficulty swallowing, hematemesis, melena, nausea, poor appetite, poor fluid intake, rectal bleeding, rectal pain, vomiting, others Genitourinary: denies: abnormal vagina bleeding, burning, dyspareunia, dysuria, flank pain, frequency, hematuria, incontinence, pain, , vagina discharge, urgency, others Neurological: denies: dizziness, fainting, headache, left sided numbness, left sided weakness, numbness, paresthesia, pre-existing deficit, right sided numbness, right sided weakness, seizure, speech problems, tingling, tremors, weakness, others Musculoskeletal: denies: back pain, gout, joint pain, joint swelling, muscle pain, muscle stiffness, neck pain, others Integumetry: reports: bruises, dryness, laceration, lumps, wounds Allergic/Immunocompromised: denies: Difficulty Healing, Frequent Infections, Hives, Itching, others Hematologic/Lymphatic: denies: anemia, blood clots, easy bleeding, easy bruising, swollen glands, others Endocrine: denies: excessive hunger, excessive sweating, excessive thirst, excessive urination, flushing, intolerance to cold, intolerance to heat, unexplained weight gain, unexplained weight loss, others Psychiatric: denies: anxiety, bipolar disorder, depression, hopeless, panic disorder, schizophrenia, sleepless, suicidal, others Physical Exam General Appearance: Mild Distress HEENT: Normal ENT Inspection, Pharynx Normal, TMs Normal Neck: Full Range of Motion, Non-Tender, Normal, Normal Inspection Respiratory: Chest Non-Tender, Lungs Clear, No Accessory Muscle Use, No Respiratory Distress, Normal Breath Sounds Cardiovascular: Irregular, No JVD, No Murmur, Other (1+ bilateral pitting edema) Breast Exam: Deferred Gastrointestinal: No Organomegaly (Umbilical hernia present), Non Tender, No Pulsatile Mass, Normal Bowel Sounds Genitalia: Deferred Pelvic: Deferred Rectal: Deferred Extremities: Normal capillary refill, Pedal edema Neurologic: NOT DONE Cerebellar Function: NOT DONE Reflexes: NOT DONE Skin: Bruises, Dry, Wounds Peripheral Pulses: 2+ carotid (R), 2+ carotid (L), 2+ femoral (R), 2+ femoral (L), 2+ dorsalis pedis (R), 2+ dorsalis pedis (L), 2+ Radial (R), 2+ Radial (L), 2+ Brachial (R), 2+ Brachial (L) Lymphatic: NOT DONE Was a procedure done? Was a procedure done?: No Differential Dx Considerations may include: Generalized weakness, hypotension, gastroenteritis, electrolyte imbalance, flare-up of psoriasis, CHF, AFib with secondary hypercoagulable state X-Ray, Labs, Meds, VS Vital Signs Date Time Temp Pulse Resp B/P (MAP) Pulse Ox O2 Delivery O2 Flow Rate FiO2 12/30/24 00:37 98.1 59 20 95/44 (61) 100 98.1 12/30/24 00:00 63 12/29/24 22:36 98.2 98 20 99/50 (66) 96 98.2 12/29/24 20:41 78 20 98 Room Air* 0 21 12/29/24 20:41 98.2 69 20 93/49 (64) 98 98.2 12/29/24 20:00 68 12/29/24 19:26 63 12/29/24 19:21 97.6 68 18 100/ 99 97.6 Lab Test 12/29/24 21:58 12/29/24 20:52 Range/Units Urine Color Light yellow Yellow Urine Clarity Turbid H Clear Urine pH 5.5 5.0-9.0 Urine Specific [place] 1.009 1.001-1.035 Urine Protein Negative Negative Urine Ketones Negative Negative Urine Blood Negative Negative /uL Urine Nitrite Negative Negative Urine Bilirubin Negative Negative Urine Urobilinogen Normal Negative mg/dL Urine Leukocyte Esterase Trace Negative /uL Urine Glucose Normal Normal mg/dL White Blood Count 27.5 H 4.4-10.8 10^3/uL Red Blood Count 3.86 L 4.0-5.20 10^6/uL Hemoglobin 10.6 L 12.2-16.2 g/dL Hematocrit 31.8 L 36.0-46.0 % Mean Corpuscular Volume 82.3 80.0-100.0 fL Mean Corpuscular Hemoglobin 27.4 L 28.0-32.0 pg Mean Corpuscular Hemoglobin Concent 33.3 32.0-36.0 g/dL Red Cell Distribution Width 15.1 H 11.8-14.3 % Platelet Count 293 140-450 10^3/uL Mean Platelet Volume 7.2 6.9-10.8 fL Neutrophils (%) (Auto) 37.0-80.0 % Lymphocytes (%) (Auto) 10.0-50.0 % Monocytes (%) (Auto) 0.0-12.0 % Basophils (%) (Auto) 0.0-2.0 % Neutrophils # (Auto) 1.6-8.6 10 ^3/uL Lymphocytes # (Auto) 0.4-5.4 10 ^3/uL Monocytes # (Auto) 0-1.3 10 ^3/uL Differential Total Cells Counted 100.0 100 Neutrophils % (Manual) 88 H 37.0-80.0 Band Neutrophils % (Manual) 0 Lymphocytes % (Manual) 6 L 10.0-50.0 Monocytes % (Manual) 6 0-12 Eosinophils % (Manual) 0 0-7 Basophils % (Manual) 0 0.0-2.0 Metamyelocytes % (manual) 0 Myelocytes % (Manual) 0 Promyelocytes % (Manual) 0 Blast Cells % (Manual) 0 Reactive Lymphocytes 0 Platelet Estimate Adequate Sodium Level 120 L 136-145 mmol/L Potassium Level 4.3 3.5-5.1 mmol/L Chloride Level 85 L 98-107 mmol/L Carbon Dioxide Level 25 20-31 mmol/L Anion Gap 10 5-15 Blood Urea Nitrogen 54 H 9-23 mg/dL Creatinine 1.33 H 0.550-1.02 mg/dL Glomerular Filtration Rate Calc 40 >90 mL/min BUN/Creatinine Ratio 40.6 H 10.0-20.0 Serum Glucose 104 74-106 mg/dL Calcium Level 9.2 8.7-10.4 mg/dL B-Type Natriuretic Peptide 129.83 0-100 pg/mL Current Medications Medications (Trade) Dose Ordered Sig/Taran Route Start Time Stop Time Status Last Admin Sodium Chloride 500 ml @ 500 mls/hr Q1H ONCE IV 12/29/24 20:30 12/29/24 21:29 DC 12/29/24 20:30 Apixaban (Eliquis) 2.5 mg BID PO 12/29/24 22:00 12/29/24 22:11 Carbidopa/Levodopa (Sinemet 10/ 100mg) 2 tab HS PO 12/29/24 22:00 12/29/24 22:11 Midodrine (Proamatine Tablet) 10 mg ONCE ONCE PO 12/29/24 23:45 12/29/24 23:46 DC 12/29/24 23:42 PROCEDURE(s): CXRP - CHEST PORTABLE REASON: generalised weakness ORDER NUMBER(s): [id number], ACCESSION NUMBER(s): [id number] CHEST RADIOGRAPH Indication: generalised weakness Technique: Single frontal view of the chest was obtained Comparison: XY CHEST PORTABLE on DOS: 04/28/24, XY CHEST PORTABLE on DOS: 04/24/24, CT CT ANGIO CHEST CONTRAST on DOS: 10/14/23 FINDINGS: Lines and Tubes: None Lungs: No focal consolidation. Pleura: No effusion. No pneumothorax. Cardiomediastinal contours: Unremarkable Bones: No acute osseous abnormality. IMPRESSION: 1. No acute cardiopulmonary disease. X-Ray, Labs, Meds, VS Comment Addendum by Dr. Milka Vail: Patient endorsed to me by resident physician to follow-up on labs and admit. 79-year-old bed-bound female with past medical history of hypertension, CHF, hypothyroidism, AFib on Eliquis, kidney disease, psoriasis in by EMS complaining of generalized weakness, nausea and diarrhea Vitals remarkable for initial BP 85/42, rate 55 Exam remarkable for mild distress and bradycardia Rhythm strip independently interpreted by me: Sinus rhythm, rate 55, no ectopy. Chest x-ray unremarkable CBC remarkable for WBC 27.5, metabolic panel remarkable for sodium 120, chloride 85, BUN 54, creatinine 1.33, BNP 129.83, UA abnormal consistent with UTI Patient treated with the following in the ED: 500 cc 0.9 normal saline IV bolus, vancomycin per pharmacy IV, started on Levophed infusion On re-evaluation, blood pressure has improved. Other vitals are stable. Plan is to admit the patient for IV antibiotics, electrolyte correction and blood pressure support. Time of 1ST Reevaluation: 21:00 Reevaluation 1ST: Unchanged Patient Education/Counseling: Diagnosis, Treatment Family Education/Counseling: No Family Present Comments This is a 79-year-old female with history of CHF, AFib on Eliquis, bed-bound, psoriasis, recurrent UTI presented to the ED with a complaint of generalized weakness, diarrhea and nausea. According to the EMS patient was hypotensive on the scene and systolic blood pressure was 70 On physical examination the patient is alert oriented x3, multiple bruises and lesion on both arms, PICC line on the left arm CBC, BNP, UA, CXR are pending. 500 mL IV bolus given because of hypotension and patient has CHF IV ondansetron 4 mg once given Considering patient's age, comorbidities, the patient needs inpatient admission for further evaluation and management of generalized weakness SEPSIS Sepsis Screen Date sepsis recognized/suspect: Dec 29, 2024 Time Sepsis recognized/suspect: 1920 Recent Procedure: No On Antibiotic Therapy: No Respiratory Rate >20: No Heart Rate >90: No Temp<36 C (96.8 F) or >38.3 C: No SBP <90 or MAP <65 mmHG: No New Acute Mental Status Change: No Is the patient on CPAP, BIPAP,: No Physician Orders Electrocardigram (12/29/24 19:45) Chest Portable (12/29/24 20:22) Insert/Manage Urinary Catheter QSHIFT (12/29/24 20:33) Apixaban (Eliquis) (12/29/24 22:00) Aspirin Enteric Coated Tablet (Ecotrin E (12/30/24 10:00) Furosemide Tablet (Lasix Tablet) (12/30/24 10:00) Carbidopa W Levodopa 10/100mg (Sinemet 1 (12/29/24 22:00) Sotalol Hcl (Betapace) (12/30/24 10:00) Levothyroxine Tablet (Synthroid Tablet) (12/30/24 10:00) Tramadol Hcl (Ultram) (12/29/24 23:15) Vital Signs Date Time Temp Pulse Resp B/P (MAP) Pulse Ox O2 Delivery O2 Flow Rate FiO2 12/30/24 00:37 98.1 59 20 95/44 (61) 100 98.1 12/30/24 00:00 63 12/29/24 22:36 98.2 98 20 99/50 (66) 96 98.2 12/29/24 20:41 78 20 98 Room Air* 0 21 12/29/24 20:41 98.2 69 20 93/49 (64) 98 98.2 12/29/24 20:00 68 12/29/24 19:26 63 12/29/24 19:21 97.6 68 18 100/ 99 97.6 Laboratory Tests Test 12/29/24 20:52 White Blood Count 27.5 10^3/uL (4.4-10.8) H Medications Medications Dose Ordered Sig/Taran Route Start Time Stop Time Status Last Admin Dose Admin Apixaban 2.5 mg BID PO 12/29/24 22:00 12/29/24 22:11 Carbidopa/Levodopa 2 tab HS PO 12/29/24 22:00 12/29/24 22:11 Midodrine 10 mg ONCE ONCE PO 12/29/24 23:45 12/29/24 23:46 DC 12/29/24 23:42 Sodium Chloride 500 ml @ 500 mls/hr Q1H ONCE IV 12/29/24 20:30 12/29/24 21:29 DC 12/29/24 20:30 Departure 1 Departure Time of Disposition: 21:20 Impression: Primary Impression: Generalized weakness Additional Impressions: Diarrhea UTI (urinary tract infection) Electrolyte imbalance Acute kidney injury Disposition: ADMITTED INPATIENT Admit to: [facility] Condition: Guarded Critical Care Note Critical Care Time?: Yes (55 min-critical care time only) Critical care comment: Critical care time including multiple bedside re-evaluations, review of lab and imaging studies, and discussion of the case with the admitting provider. Patient is high risk for hemodynamic and/or metabolic decompensation. Stability Stability form required: No Heart Score Heart Score: Heart Score Response (Comments) Value History N/A 0 EKG N/A 0 Age N/A 0 Risk Factors N/A 0 Troponin N/A 0 Total 0 AMBROSIO RAMOS Dec 29, 2024 20:27 CESAR DARLING MD Dec 30, 2024 07:01
[2024-12-29] MEDS: SODIUM CHLORIDE 0.9% 500 ML IV ONE (20:30)
[2024-12-29] MEDS: ONDANSETRON HCL 4 MG/2 ML VIAL IV ONE (20:30)
[2024-12-29 20:41] VITALS: PULSE 78; RESP 20; O2SAT 98
--- NOTE | 2024-12-29 21:09 | DVH ---
CHEST RADIOGRAPH Indication: generalised weakness Technique: Single frontal view of the chest was obtained Comparison: XY CHEST PORTABLE on DOS: 04/28/24, XY CHEST PORTABLE on DOS: 04/24/24, CT CT ANGIO CHEST C ONTRAST on DOS: 10/14/23 FINDINGS: Lines and Tubes: None Lungs: No focal consolidation. Pleura: No effusion. No pneumothorax. Cardiomediastinal contours: Unremarkable Bones: No acute osseous abnormality. IMPRESSION: 1. No acute cardiopulmonary disease.
[2024-12-29 21:13] LABS: Hematocrit 31.8 % (36.0-46.0); Hemoglobin 10.6 g/dL (12.2-16.2); Mean Corpuscular Hemoglobin 27.4 pg (28.0-32.0); Mean Corpuscular Volume 82.3 fL (80.0-100.0)
[2024-12-29 21:26] LABS: Potassium 4.3 mmol/L (3.5-5.1)
[2024-12-29 21:27] LABS: Anion Gap 10 (5-15); Calcium 9.2 mg/dL (8.7-10.4); Carbon Dioxide 25 mmol/L (20-31)
[2024-12-29 21:30] LABS: Chloride 85 mmol/L (98-107); Sodium 120 mmol/L (136-145)
[2024-12-29 21:32] LABS: BUN/Creatinine Ratio 40.6 (10.0-20.0); Glucose 104 mg/dL (74-106)
[2024-12-29 21:44] LABS: Blood Urea Nitrogen 54 mg/dL (9-23)
[2024-12-29 22:06] LABS: Total Cells Counted 100.0 (100)
[2024-12-29] MEDS: CARBIDOPA W LEVODOPA 10/100mg TABLET PO SCH (22:11)
[2024-12-29] MEDS: APIXABAN 2.5 MG TAB PO SCH (22:11)
[2024-12-29 22:44] LABS: Urine Protein, UAD Negative (Negative)
[2024-12-29] MEDS: MIDODRINE HCL 10 MG TAB PO ONE (23:42)
[2024-12-30] VITALS (73 sets, daily range): BP systolic 81–208; BP diastolic 22–149; PULSE 52–66; RESP 8–25; TEMP 97.6–98.9; O2SAT 87–100
[2024-12-30] MEDS ORDERED: VANCOMYCIN 1GM/200ML PM 200 ML IV ONE (00:45)
[2024-12-30] MEDS ORDERED: DOCUSATE SOD 100 MG CAP PO PRN (00:45)
[2024-12-30] MEDS ORDERED: ACETAMINOPHEN 325 MG TAB PO PRN (00:45)
[2024-12-30] MEDS ORDERED: ONDANSETRON HCL 4 MG/2 ML VIAL IV PRN (00:45)
[2024-12-30] MEDS ORDERED: VANCOMYCIN PER PHARMACY 0 MG IV SCH (00:45)
[2024-12-30] MEDS ORDERED: NITROGLYCERIN 0.4 MG SL TAB SL PRN (00:45)
--- NOTE | 2024-12-30 00:47 | DVHHP2 ---
History of Present Illness Reason for Visit: Generalized weakness History of Present Illness The patient is a 79-year-old female morbidly obese, bed-bound with multiple past medical history including AFib, diabetes mellitus, CHF, and hypothyroidism who presented to [facility] ED with complaint of generalized weakness. Patient reports she has been experiencing generalized weakness associated with shortness of breaths, nausea, diarrhea for the past 2 days, getting worse today that prompted this visit. Patient has a very sensitive skin and multiple psoriatic patches and erythema on both arms, she has a PICC line on the left for last 7 month because it is very hard to find veins in her arms and she also mentioned few psoriatic patches on her buttock without any obvious ulceration. Patient was seen and evaluated in the ED, laboratory data shows WBC 27.5, hemoglobin 10.5, hematocrit 31.8, platelets 293, sodium 120, potassium 4.3, BUN 54, creatinine 1.33, glucose 104, calcium 9.2, BNP 129.83, blood pressure 99/50, heart rate 98, temperature 98.2 F, O2 saturation 96% on oxygen. Chest x-ray show no acute cardiopulmonary disease. Please see medication orders section in the computer. On my assessment, patient denied chest pain, no dizziness, no palpitation, currently on oxygen, no nausea, no vomiting, no fever, no chills. Patient was admitted for further evaluation and medical management. Past Medical History AFIB, Anemia, Arthritis, CHF, CKF, DM, HTN, Kidney Stones, Thyroid Past Surgical History Tonsillectomy Family History Reviewed, noncontributory to the management of this case. Past Social History The patient lives in detention facility, denies smoking, no alcohol or illicit drugs abuse. Review of Systems Constitutional: Yes: Weakness; No: Fever, Chills, Sweats, Malaise, Other Eyes: No: Pain, Vision change, Conjunctivae inflammation, Eyelid inflammation, Other, Redness ENT: No: Ear pain, Ear discharge, Nose pain, Nose discharge, Nose congestion, Mouth pain, Mouth swelling, Throat pain, Throat swelling, Other Respiratory: Shortness of breath; No: Cough, Dry, SOB with excertion, Wheezing, Hemoptysis, Pleuritic Pain, Sputum, Wheezing, Other Cardiovascular: No: Chest Pain, Palpitations, Orthopnea, Paroxysmal Noc. Dyspnea, Edema, Lt Headedness, Other Gastrointestinal: Nausea, Diarrhea; No: Vomiting, Abdominal Pain, Constipation, Melena, Hematochezia, Other Genitourinary: No Dysuria, No Frequency, No Incontinence, No Hematuria, No Retention, No Other Musculoskeletal: No: other, neck pain, shoulder pain, arm pain, back pain, hand pain, leg pain, foot pain Skin: Other (multiple psoriatic patches); No: Rash, Lesions, Jaundice, Bruising Neurological: No: Weakness, Numbness, Incoordination, Change in speech, Confusi on, Seizures, Other Allergies: Coded Allergies: Penicillins (Unverified Allergy, Severe, 03/16/15) Sulfa Antibiotics (Unverified Allergy, Severe, 03/16/15) Morphine (Verified Allergy, Intermediate, ALTERED, 01/31/18) PER PATIENT AND HER DAUGHTER SHE CAN NOT HAVE Ceftriaxone (Verified Allergy, Unknown, 01/31/18) COUGH AND CHILLS Medications Current Medications Medications Dose Ordered Sig/Taran Route Start Time Stop Time Status Last Admin Dose Admin Apixaban 2.5 mg BID PO 12/29/24 22:00 12/29/24 22:11 2.5 MG Aspirin 81 mg DAILY PO 12/30/24 10:00 Furosemide 40 mg DAILY PO 12/30/24 10:00 Carbidopa/Levodopa 2 tab HS PO 12/29/24 22:00 12/29/24 22:11 2 TAB Sotalol HCl 40 mg DAILY PO 12/30/24 10:00 Levothyroxine Sodium 75 mcg DAILY PO 12/30/24 10:00 Tramadol HCl 50 mg Q6HP PRN PO 12/29/24 23:15 Exam Vital Signs Vital Signs Date Time Temp Pulse Resp B/P (MAP) Pulse Ox O2 Delivery O2 Flow Rate FiO2 12/30/24 00:37 98.1 59 20 95/44 (61) 100 98.1 12/29/24 20:41 Room Air* 0 21 General Appearance: Alert, Oriented X3, Cooperative, No acute distress HEENT: Atraumatic, PERRLA, EOMI, Mucous membr. moist/pink Respiratory: Normal air movement Cardiovascular: Regular rate, Normal S1, Normal S2, No murmurs Abdominal: Normal bowel sounds, Soft, No tenderness, No hepatospenomegaly, No masses Extremities: No clubbing, No cyanosis, No edema, Normal pulses, No tenderness/swelling Skin: No rashes, No significant lesion Neuro: Normal speech, Normal tone, Sensation intact, Cranial nerves 3-12 NL, Reflexes 2+, Other (Generalized weakness) Psych/Mental Status: Mental status NL, Mood NL Labs/Xrays Labs Test 12/29/24 21:58 12/29/24 20:52 Range/Units Urine Color Light yellow Yellow Urine Clarity Turbid H Clear Urine pH 5.5 5.0-9.0 Urine Specific [place] 1.009 1.001-1.035 Urine Protein Negative Negative Urine Ketones Negative Negative Urine Blood Negative Negative /uL Urine Nitrite Negative Negative Urine Bilirubin Negative Negative Urine Urobilinogen Normal Negative mg/dL Urine Leukocyte Esterase Trace Negative /uL Urine Glucose Normal Normal mg/dL White Blood Count 27.5 H 4.4-10.8 10^3/uL Red Blood Count 3.86 L 4.0-5.20 10^6/uL Hemoglobin 10.6 L 12.2-16.2 g/dL Hematocrit 31.8 L 36.0-46.0 % Mean Corpuscular Volume 82.3 80.0-100.0 fL Mean Corpuscular Hemoglobin 27.4 L 28.0-32.0 pg Mean Corpuscular Hemoglobin Concent 33.3 32.0-36.0 g/dL Red Cell Distribution Width 15.1 H 11.8-14.3 % Platelet Count 293 140-450 10^3/uL Mean Platelet Volume 7.2 6.9-10.8 fL Neutrophils (%) (Auto) 37.0-80.0 % Lymphocytes (%) (Auto) 10.0-50.0 % Monocytes (%) (Auto) 0.0-12.0 % Basophils (%) (Auto) 0.0-2.0 % Neutrophils # (Auto) 1.6-8.6 10 ^3/uL Lymphocytes # (Auto) 0.4-5.4 10 ^3/uL Monocytes # (Auto) 0-1.3 10 ^3/uL Differential Total Cells Counted 100.0 100 Neutrophils % (Manual) 88 H 37.0-80.0 Band Neutrophils % (Manual) 0 Lymphocytes % (Manual) 6 L 10.0-50.0 Monocytes % (Manual) 6 0-12 Eosinophils % (Manual) 0 0-7 Basophils % (Manual) 0 0.0-2.0 Metamyelocytes % (manual) 0 Myelocytes % (Manual) 0 Promyelocytes % (Manual) 0 Blast Cells % (Manual) 0 Reactive Lymphocytes 0 Platelet Estimate Adequate Sodium Level 120 L 136-145 mmol/L Potassium Level 4.3 3.5-5.1 mmol/L Chloride Level 85 L 98-107 mmol/L Carbon Dioxide Level 25 20-31 mmol/L Anion Gap 10 5-15 Blood Urea Nitrogen 54 H 9-23 mg/dL Creatinine 1.33 H 0.550-1.02 mg/dL Glomerular Filtration Rate Calc 40 >90 mL/min BUN/Creatinine Ratio 40.6 H 10.0-20.0 Serum Glucose 104 74-106 mg/dL Calcium Level 9.2 8.7-10.4 mg/dL B-Type Natriuretic Peptide 129.83 0-100 pg/mL PATIENT: TANESHA FONSECA ACCT: [id number] UNIT: [id number] : 1945 LOC: ER ROOM / BED: / AGE / SEX: 79 / F ADM STATUS: REG ER SERVICE 21 ORDERING PHYSICIAN: AMBROSIO RAMOS RESIDENT PROCEDURE(s): CXRP - CHEST PORTABLE REASON: generalised weakness ORDER NUMBER(s): [id number], ACCESSION NUMBER(s): [id number] CHEST RADIOGRAPH Indication: generalised weakness Technique: Single frontal view of the chest was obtained Comparison: XY CHEST PORTABLE on DOS: 04/28/24, XY CHEST PORTABLE on DOS: 04/24/24, CT CT ANGIO CHEST CONTRAST on DOS: 10/14/23 FINDINGS: Lines and Tubes: None Lungs: No focal consolidation. Pleura: No effusion. No pneumothorax. Cardiomediastinal contours: Unremarkable Bones: No acute osseous abnormality. IMPRESSION: 1. No acute cardiopulmonary disease. SEPSIS Sepsis Screen Date sepsis recognized/suspect: Dec 29, 2024 Time Sepsis recognized/suspect: 2043 Recent Procedure: No On Antibiotic Therapy: No Respiratory Rate >20: No Heart Rate >90: No Temp<36 C (96.8 F) or >38.3 C: No SBP <90 or MAP <65 mmHG: Yes New Acute Mental Status Change: No Is the patient on CPAP, BIPAP,: No Physician Orders Electrocardigram (12/29/24 19:45) Chest Portable (12/29/24 20:22) Insert/Manage Urinary Catheter QSHIFT (12/29/24 20:33) Apixaban (Eliquis) (12/29/24 22:00) Aspirin Enteric Coated Tablet (Ecotrin E (12/30/24 10:00) Furosemide Tablet (Lasix Tablet) (12/30/24 10:00) Carbidopa W Levodopa 10/100mg (Sinemet 1 (12/29/24 22:00) Sotalol Hcl (Betapace) (12/30/24 10:00) Levothyroxine Tablet (Synthroid Tablet) (12/30/24 10:00) Tramadol Hcl (Ultram) (12/29/24 23:15) Complete Blood Count (12/30/24 04:00) Comprehensive Metabolic Panel (12/30/24 04:00) Vancomycin Per Pharmacy (12/30/24 00:45) Vancomycin (12/30/24 00:45) Blood Culture (12/30/24 00:37) Admit (12/30/24 00:37) Allergies (12/30/24 00:37) Code Status (12/30/24 00:37) 0.9% Ns 1000 Ml (12/30/24 00:45) Oxygen Per Hour (12/30/24 00:37) Ondansetron Hcl (Zofran) (12/30/24 00:45) Docusate Sodium Capsule (Colace Capsule) (12/30/24 00:45) Fall Risk Precautions In Place QSHIFT (12/30/24 00:37) Complete Blood Count (12/31/24 04:00) Comprehensive Metabolic Panel (12/31/24 04:00) Cardiac Diet-2gna,Lofat,Lochol (12/30/24 Breakfast) Condition: Serious (12/30/24 00:37) Acetaminophen Tablet (Tylenol Tablet) (12/30/24 00:45) Maintain Bed Rest (12/30/24 00:37) Sequential Compression Device (12/30/24 ) Nitroglycerin Sublingual (Ntrostat Subli (12/30/24 00:45) Stat Ekg For Chest Pain (12/30/24 00:37) Notify Md Of Changes From Base (12/30/24 00:37) Goodwill Representative For 24 Hours (12/30/24 00:37) Emergency Dysrhythmia Protocol (12/30/24 00:37) Rhythm Strips Once Every Shift (12/30/24 00:37) Oxygen By Nasal Cannula (12/30/24 00:37) Vital Signs Date Time Temp Pulse Resp B/P (MAP) Pulse Ox O2 Delivery O2 Flow Rate FiO2 12/30/24 00:37 98.1 59 20 95/44 (61) 100 98.1 12/29/24 22:36 98.2 98 20 99/50 (66) 96 98.2 12/29/24 20:41 78 20 98 Room Air* 0 21 12/29/24 20:41 98.2 69 20 93/49 (64) 98 98.2 12/29/24 20:00 68 12/29/24 19:26 63 12/29/24 19:21 97.6 68 18 100/ 99 97.6 Laboratory Tests Test 12/29/24 20:52 White Blood Count 27.5 10^3/uL (4.4-10.8) H Medications Medications Dose Ordered Sig/Taran Route Start Time Stop Time Status Last Admin Dose Admin Apixaban 2.5 mg BID PO 12/29/24 22:00 12/29/24 22:11 2.5 MG Carbidopa/Levodopa 2 tab HS PO 12/29/24 22:00 12/29/24 22:11 2 TAB Midodrine 10 mg ONCE ONCE PO 12/29/24 23:45 12/29/24 23:46 DC 12/29/24 23:42 10 MG Sodium Chloride 500 ml @ 500 mls/hr Q1H ONCE IV 12/29/24 20:30 12/29/24 21:29 DC 12/29/24 20:30 500 MLS/HR Assessment/Plan Assessment/Plan Gastroenteritis Hyponatremia Morbid obesity Leukocytosis, unspecified Acute renal injury Generalized weakness Plan 1. Admit to telemetry unit 2. Breathing treatment 3. Pain control management 4. IV antibiotic management 5. Management of fluids and electrolytes 6. Consultation for hospitalist 7. Diagnostic test chest x-ray 8. DVT prophylaxis-on SCDs 9. Repeat labs CBC, CMP in a.m. 10. Home medication reviewed and reconciled 11. Continue with current medical management 12. Treatment plan discussed with patient and RN. Patient verbalized understanding. Plan discussed with: Patient, Other (RN) My Orders Orders - SERA MARINELLI DNP Procedure Category Date Status Time Complete Blood Count LAB 12/30/24 Verified 04:00 Comprehensive LAB 12/30/24 Verified Metabolic Panel 04:00 Vancomycin Per PHA 12/30/24 Verified Pharmacy 00:45 Vancomycin PHA 12/30/24 Verified 00:45 Blood Culture LIA 12/30/24 Verified 00:37 Admit ADMIT 12/30/24 Verified 00:37 Allergies [facility] 12/30/24 Verified 00:37 Code Status CODE 12/30/24 Verified 00:37 0.9% Ns 1000 Ml PHA 12/30/24 Verified 00:45 Oxygen Per Hour RT 12/30/24 Verified 00:37 Ondansetron Hcl PHA 12/30/24 Verified (Zofran) 00:45 Docusate Sodium PHA 12/30/24 Verified Capsule (Colace 00:45 Fall Risk Precautions [facility] 12/30/[address] 00:37 Complete Blood Count LAB 12/31/24 Verified 04:00 Comprehensive LAB 12/31/24 Verified Metabolic Panel 04:00 Cardiac DIET 12/30/24 Verified Diet-2gna,Lofat,Lochol Breakfast Condition: Serious [facility] 12/30/24 Verified 00:37 Acetaminophen Tablet [facility] 12/30/24 Verified (Tylenol Tablet) 00:45 Maintain Bed Rest [facility] 12/30/24 Verified 00:37 Sequential [facility] 12/30/24 Verified Compression Device Nitroglycerin [facility] 12/30/24 Verified Sublingual (Ntrostat 00:45 Stat Ekg For Chest [facility] 12/30/24 Verified Pain 00:37 Notify Md Of Changes [facility] 12/30/24 Verified From Base 00:37 Goodwill Representative For [facility] 12/30/24 Verified 24 Hours 00:37 Emergency Dysrhythmia [facility] 12/30/24 Verified Protocol 00:37 Rhythm Strips Once [facility] 12/30/24 Verified Every Shift 00:37 Oxygen By Nasal RT 12/30/24 Verified Cannula 00:37 Problem List: (1) Gastroenteritis (2) Hyponatremia (3) Morbid obesity (4) Leukocytosis, unspecified (5) Acute renal injury (6) Generalized weakness Date of Service: Dec 30, 2024 Billing Provider: SERA MARINELLI DNP Common Visit Codes: [id number] INP/OBS CARE (HIGH) SERA MARINELLI DNP Dec 30, 2024 00:47
[2024-12-30] MEDS: SODIUM CHLORIDE 0.9% 1,000 ML IV SCH (01:06)
[2024-12-30] MEDS ORDERED: VANCOMYCIN 1GM/200ML PM 250 ML IV ONE (01:30)
[2024-12-30] MEDS: VANCOMYCIN 1GM/250ML KIT 250 ML IV ONE (01:49)
[2024-12-30] MEDS: NOREPINEPHRINE 8 MG/250ML KIT 250 ML IV SCH ×2 (03:33→16:00)
[2024-12-30 08:18] LABS: Hematocrit 29.4 % (36.0-46.0); Hemoglobin 9.9 g/dL (12.2-16.2); Mean Corpuscular Hemoglobin 27.7 pg (28.0-32.0); Mean Corpuscular Volume 82.6 fL (80.0-100.0); Nucleated Red Blood Cells % 0.1 %
[2024-12-30 08:35] LABS: Alkaline Phosphatase 102 U/L (46-116); Anion Gap 11 (5-15); BUN/Creatinine Ratio 36.5 (10.0-20.0); Carbon Dioxide 22 mmol/L (20-31)
[2024-12-30 08:40] LABS: Alanine Aminotransferase < 9 U/L (7-40); Bilirubin, Total 0.2 mg/dL (0.2-1.0); Blood Urea Nitrogen 38 mg/dL (9-23); Calcium 8.4 mg/dL (8.7-10.4); Chloride 95 mmol/L (98-107); Glucose 109 mg/dL (74-106); Potassium 2.6 mmol/L (3.5-5.1); Sodium 128 mmol/L (136-145); Total Protein 5.0 g/dL (5.7-8.2)
[2024-12-30 08:41] LABS: Albumin 3.1 g/dL (3.2-4.8)
[2024-12-30] MEDS: SOTALOL HCL 80 MG TAB PO SCH (09:02)
[2024-12-30] MEDS: LEVOTHYROXINE SODIUM 50 MCG TAB PO SCH (09:58)
[2024-12-30] MEDS: ASPirin-EC 81 mg tab PO SCH (09:58)
[2024-12-30] MEDS: FUROSEMIDE 40 MG TAB PO SCH (10:00)
[2024-12-30] MEDS: POTASSIUM CHLORIDE 40 MEQ, LIDOCAINE 1% (LOCAL ANESTH.) 4 ML in SODIUM CHL 0.9% 250 ML IV ONE (10:45)
[2024-12-30] MEDS: POTASSIUM CHL 20MEQ/100ML 100 ML IV ONE (16:00)
[2024-12-30] MEDS: POTASSIUM EFFERVESENT TAB 25 MEQ PO ONE (16:00)
--- NOTE | 2024-12-30 16:55 | DVHPN2 ---
Subjective I am assuming the care of the patient from today onwards. Patient is currently on Levophed for low blood pressure. Reviewed: Care Plan Changes from previous H/P or p: No Changes Eyes: No Pain, No Vision change, No Conjunctivae inflammation, No Eyelid inflammation, No Other, No Redness ENT: No Ear pain, No Ear discharge, No Nose pain, No Nose discharge, No Nose congestion, No Mouth pain, No Mouth swelling, No Throat pain, No Throat swelling, No Other Cardiovascular: No Chest Pain, No Palpitations, No Orthopnea, No Paroxysmal Noc. Dyspnea, No Edema, No Lt Headedness, No Other Respiratory: No Cough, No Dry; Shortness of breath; No SOB with excertion, No Wheezing, No Hemoptysis, No Pleuritic Pain, No Sputum, No Other Gastrointestinal: Nausea; No Vomiting, No Abdominal Pain; Diarrhea; No Constipation, No Melena, No Hematochezia, No Other Genitourinary: No Dysuria, No Frequency, No Incontinence, No Hematuria, No Retention, No Other Musculoskeletal: No other, No neck pain, No shoulder pain, No arm pain, No back pain, No hand pain, No leg pain, No foot pain Skin: No Rash, No Lesions, No Jaundice, No Bruising; Other (multiple psoriatic patches) Objective Vitals Vital Signs Date Time Temp Pulse Resp B/P (MAP) Pulse Ox O2 Delivery O2 Flow Rate FiO2 12/30/24 16:01 54 9 95/32 (53) 100 12/30/24 16:00 Room Air* 0 21 12/30/24 12:01 97.8 97.8 Exam HEENT pupils are reactive Neck is supple CV is S1-S2 regular rate and rhythm Respiratory diminished breath sounds bases GI positive bowel sound Extremity positive extremity edema 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 no motor 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 Medications Current Medications Medications Dose Ordered Sig/Taran Route Start Time Stop Time Status Last Admin Dose Admin Apixaban 2.5 mg BID PO 12/29/24 22:00 12/30/24 09:58 2.5 MG Aspirin 81 mg DAILY PO 12/30/24 10:00 12/30/24 09:58 81 MG Furosemide 40 mg DAILY PO 12/30/24 10:00 Carbidopa/Levodopa 2 tab HS PO 12/29/24 22:00 12/29/24 22:11 2 TAB Sotalol HCl 40 mg DAILY PO 12/30/24 10:00 Levothyroxine Sodium 75 mcg DAILY PO 12/30/24 10:00 12/30/24 09:58 75 MCG Tramadol HCl 50 mg Q6HP PRN PO 12/29/24 23:15 12/30/24 16:35 50 MG Vancomycin HCl 0 ml @ 0 mls/hr UD IV 12/30/24 00:45 Ondansetron HCl 4 mg Q4HP PRN IV 12/30/24 00:45 Docusate Sodium 100 mg BIDPRN PRN PO 12/30/24 00:45 Acetaminophen 650 mg Q6HP PRN PO 12/30/24 00:45 Nitroglycerin 0.4 mg Q5MINP PRN SL 12/30/24 00:45 Norepinephrine Bitartrate 250 ml @ 3.75 mls/hr Q24H IV 12/30/24 16:00 Laboratory Results Laboratory Tests 12/30/24 07:50 Chemistry Test 12/29/24 20:52 12/30/24 07:50 Calcium Level 9.2 mg/dL (8.7-10.4) 8.4 mg/dL (8.7-10.4) L Albumin 3.1 g/dL (3.2-4.8) L Total Protein 5.0 g/dL (5.7-8.2) L Cardiac Markers Test 12/29/24 20:52 B-Type Natriuretic Peptide 129.83 pg/mL (0-100) LFT Test 12/30/24 07:50 Alanine Aminotransferase (ALT) < 9 U/L (7-40) Alkaline Phosphatase 102 U/L (46-116) Aspartate Amino Transferase (AST) 16 U/L (13-40) Total Bilirubin 0.2 mg/dL (0.2-1.0) Urinalysis Test 12/29/24 21:58 Urine Color Light yellow (Yellow) Urine Clarity Turbid (Clear) H Urine pH 5.5 (5.0-9.0) Urine Specific [place] 1.009 (1.001-1.035) Urine Protein Negative (Negative) Urine Ketones Negative (Negative) Urine Blood Negative /uL (Negative) Urine Nitrite Negative (Negative) Urine Bilirubin Negative (Negative) Urine Urobilinogen Normal mg/dL (Negative) Urine Leukocyte Esterase Trace /uL (Negative) Urine Glucose Normal mg/dL (Normal) Assessment/Plan Assessment/Plan 79-year-old female with a known history of AFib currently on Eliquis, congestive heart failure, hypothyroidism who initially presented to the hospital with generalized weakness patient was found to have systolic blood pressure 70s by the EMS. 1. Relative hypotension with a known history of hypertension currently on sotalol at home 2. Chronic AFib 3. Generalized weakness 4. Diarrhea 5. UTI 6. Acute kidney injury suspected secondary to vasomotor nephropathy 7. Sepsis secondary to UTI 8. Leukocytosis 9. Hyponatremia -continue Levophed titrate for systolic blood pressure more than 90, continue IV antibiotics, -physical therapy evaluation and treatment. Plan discussed with: Patient My Orders Orders - JUAN HUMPHRIES MD Procedure Category Date Status Time Norepinephrine 8 PHA 12/30/24 In Process Mg/250ml Kit 16:00 Potassium Chl PHA 12/30/24 In Process 20meq/100ml 16:00 Communication Order ORDERS 12/30/24 Verified 15:58 Date of Service: Dec 30, 2024 Billing Provider: JUAN HUMPHRIES MD Common Visit Codes: [id number] INP/OBS CARE(HIGH) JUAN HUMPHRIES MD Dec 30, 2024 16:55
--- NOTE | 2024-12-30 18:58 | DVHINCON2 ---
Date of service: Dec 30, 2024 History of Present Illness 79-year-old female with a past medical history of atrial fibrillation, diastolic heart failure and aortic stenosis status post TAVR patient has been receiving aggressive diuretic therapy at her board certified family physician's office due to edema currently regimen Bumex and metolazone, with supplemental potassium. Patient was brought in by family after home health aide noted significant hypotension. Patient reports she has had a PICC line in her arm for blood draws and medications for the last seven months. At presentation patient noted to be significant hypotensive requiring pressors. Patient has a leukocytosis. Nephrology consulted to elevated creatinine level. Comparison labs from last year showed GFR greater than 64% at baseline indicating chronic kidney disease stage 2 Past Medical History Aortic valve stenosis status post TAVR Diastolic heart failure Hypertension Atrial fibrillation Osteoarthritis Bed-bound Morbid obesity Anemia Past Surgical History TAVR Allergies: Coded Allergies: Penicillins (Unverified Allergy, Severe, 03/16/15) Sulfa Antibiotics (Unverified Allergy, Severe, 03/16/15) Morphine (Verified Allergy, Intermediate, ALTERED, 01/31/18) PER PATIENT AND HER DAUGHTER SHE CAN NOT HAVE Ceftriaxone (Verified Allergy, Unknown, 01/31/18) COUGH AND CHILLS Home Meds Reported Medications Tramadol Hcl (Tramadol Hcl) 50 Mg Tab, 1 TAB PO QID 04/25/24 Furosemide (Furosemide) 40 Mg Tab, 1 TAB PO DAILY 04/25/24 Aspirin (Aspirin Low Dose) 81 Mg Tab, 1 TAB PO DAILY 04/25/24 Ropinirole Hydrochloride (Ropinirole Hcl) 1 Mg Tab, 1 TAB PO 04/25/24 Kmjrlajtxrtw-Uamejmlsufmrn-Mok (Dermacinrx Therazole Chuy 1-0.05 & 20 %) 1 Chuy Chuy 04/25/24 Clobetasol Propionate (Clobetasol Propionate) 0.05 % Deepika, TOP 04/25/24 Ondansetron HCl (Ondansetron Hydrochloride) 4 Mg Tab, 1 TAB PO Q8HPRN 04/25/24 Sotalol Hcl (Sotalol Hcl) 80 Mg Tab, 0.5 TAB PO DAILY, #60 TAB 5 Refills 04/25/24 Furosemide (Lasix) 20 Mg Tb, 20 MG PO DAILY, TAB 11/17/23 Apixaban Base (ELIQUIS) 2.5 Mg Tab, 2.5 MG PO BID, TAB 11/17/23 Esomeprazole Magnesium (Esomeprazole Magnesium Dr) 40 Mg Cap, 40 MG PO DAILY, CAP 11/03/23 Acetaminophen (8 Hour Arthritis Pain Rel) 650 Mg Tab, 650 MG PO TID for ARTHRITIS 01/23/22 Betamethasone Dipropionate (Betamethasone Dipropionat) 0.05 % Cre, 1 APPLIC TOP DIRECTED PRN for ECZEMA RASH 01/23/22 Levodopa W/Carbidopa (Sinemet) 10 /100 Tab, 2 TAB PO HS for TREMORS 01/23/22 Sotalol HCl (Sotalol Hydrochloride AF) 80 Mg Tab, 0.5 TAB PO DAILY for ARRYTHMIA 01/23/22 Clotrimazole W/ Betamethasone (Clotrimazole/Betamethason) Diprop Lot, 1 APPLIC TOP BID PRN for ECZEMA RASH 02/05/20 Albuterol Sulfate (Albuterol Sulfate) 0.083 % Neb, 1 VIAL NEB Q6HR PRN for SHORTNESS OF BREATH 02/05/20 Fluticasone Propionate (Nasal) (Flonase Allergy Relief) 50 Mcg/Act Spr, 1 SPR NA BID PRN for ALLERGIES 02/05/20 Ondansetron (Zofran) 4 Mg Tab, 1 TAB PO TID PRN for NAUSEA OR VOMITING 02/05/20 Aspirin (ASPIRIN 81) 81 Mg Tab, 1 TAB PO DAILY for HEART ATTACK PREVENTION 02/05/20 Potassium Chloride (Potassium Chloride ER) 20 Meq Tab, 1 TAB PO DAILY for SUPPLEMENT 02/05/20 Apremilast Base (Otezla) 30 Mg Tab, 1 TAB PO BID for ARTHRITIS 03/28/19 Tramadol HCl (Tramadol Hydrochloride) 50 Mg Tab, 1 TAB PO QID PRN for MODERATE PAIN (4-6 PAIN SCALE) 10/30/18 Albuterol Sulfate (VENTOLIN MDI) 90 Mcg Ih, 2 PUFF IN Q6HR PRN for SHORTNESS OF BREATH 04/21/18 Levothyroxine Sodium (Levothyroxine Sodium) 75 Mcg Tab, 1 TAB PO DAILY for HYPOTHYROIDISM, 5 Refills 03/17/15 Ropinirole Hydrochloride (Requip) 1 Mg Tab, 1 TAB PO HS for RESTLESS LEGS 03/17/15 Current Medications Current Medications Medications (Trade) Dose Ordered Sig/Taran Route PRN Reason Start Time Stop Time Status Last Admin Apixaban (Eliquis) 2.5 mg BID PO 12/29/24 22:00 12/30/24 09:58 Aspirin (Ecotrin Enteric Coated Tablet) 81 mg DAILY PO 12/30/24 10:00 12/30/24 09:58 Furosemide (Lasix Tablet) 40 mg DAILY PO 12/30/24 10:00 Carbidopa/Levodopa (Sinemet 10/ 100mg) 2 tab HS PO 12/29/24 22:00 12/29/24 22:11 Sotalol HCl (Betapace) 40 mg DAILY PO 12/30/24 10:00 Levothyroxine Sodium (Synthroid Tablet) 75 mcg DAILY PO 12/30/24 10:00 12/30/24 09:58 Tramadol HCl (Ultram) 50 mg Q6HP PRN PO PAIN SCALE 1 THRU 6 12/29/24 23:15 12/30/24 16:35 Vancomycin HCl 0 ml @ 0 mls/hr UD IV 12/30/24 00:45 Sodium Chloride 1,000 ml @ 60 mls/hr [id number] IV 12/30/24 00:45 12/30/24 16:04 DC 12/30/24 01:06 Ondansetron HCl (Zofran) 4 mg Q4HP PRN IV NAUSEA / VOMITING 12/30/24 00:45 Docusate Sodium (Colace Capsule) 100 mg BIDPRN PRN PO FOR CONSTIPATION 12/30/24 00:45 Acetaminophen (Tylenol Tablet) 650 mg Q6HP PRN PO PAIN SCALE 1-3 OR TEMP>100.4 12/30/24 00:45 Nitroglycerin (Ntrostat Sublingual) 0.4 mg Q5MINP PRN SL FOR CHEST PAIN 12/30/24 00:45 Norepinephrine Bitartrate 250 ml @ 3.75 mls/hr Q24H IV 12/30/24 03:30 12/30/24 16:04 DC 12/30/24 03:33 Norepinephrine Bitartrate 250 ml @ 3.75 mls/hr Q24H IV 12/30/24 16:00 Vancomycin HCl 250 ml @ 250 mls/hr Q12H IV 12/30/24 18:00 Family History: Cancer G8 MOTHER G8 SISTER Chronic obstructive lung disease (situation) G8 FATHER Family history: Cardiovascular disease G8 MOTHER G8 FATHER Family history: Hypertension G8 MOTHER G8 FATHER Suicide G8 FATHER Review of Systems Weakness and hypotension H&P Exam Vital Signs/I&O Vital Sign Date Time Temp Pulse Resp B/P (MAP) Pulse Ox O2 Delivery O2 Flow Rate FiO2 12/30/24 18:21 58 12/30/24 18:21 14 97 Room Air* 0 21 12/30/24 18:16 144/42 (76) 12/30/24 17:16 98.2 98.2 Physical Exam Morbid obese female not in overt distress Bed bound Left arm ecchymosis bruising, with PICC line in place Currently no bilateral edema Irregular rate and rhythm but not tachycardic Hook catheter minimal urine output but clear in color Labs/Diagnostic Data Labs/Diagnostic Data Laboratory Tests Test 12/30/24 10:35 12/30/24 07:50 12/29/24 21:58 12/29/24 20:52 Range/Units Random Vancomycin Level 9.8 5-10 ug/mL White Blood Count 22.8 H 27.5 H 4.4-10.8 10^3/uL Red Blood Count 3.57 L 3.86 L 4.0-5.20 10^6/uL Hemoglobin 9.9 L 10.6 L 12.2-16.2 g/dL Hematocrit 29.4 L 31.8 L 36.0-46.0 % Mean Corpuscular Volume 82.6 82.3 80.0-100.0 fL Mean Corpuscular Hemoglobin 27.7 L 27.4 L 28.0-32.0 pg Mean Corpuscular Hemoglobin Concent 33.6 33.3 32.0-36.0 g/dL Red Cell Distribution Width 15.4 H 15.1 H 11.8-14.3 % Platelet Count 290 293 140-450 10^3/uL Mean Platelet Volume 7.1 7.2 6.9-10.8 fL Neutrophils (%) (Auto) 88.9 H 37.0-80.0 % Lymphocytes (%) (Auto) 4.5 L 10.0-50.0 % Monocytes (%) (Auto) 6.4 0.0-12.0 % Eosinophils (%) (Auto) 0.1 0.0-7.0 % Basophils (%) (Auto) 0.1 0.0-2.0 % Neutrophils # (Auto) 20.3 H 1.6-8.6 10 ^3/uL Lymphocytes # (Auto) 1.0 0.4-5.4 10 ^3/uL Monocytes # (Auto) 1.5 H 0-1.3 10 ^3/uL Eosinophils # (Auto) 0 0-0.8 10 ^3/uL Basophils # (Auto) 0 0-0.2 10 ^3/uL Nucleated Red Blood Cells 0.1 % Sodium Level 128 #L 120 L 136-145 mmol/L Potassium Level 2.6 L 4.3 3.5-5.1 mmol/L Chloride Level 95 #L 85 L 98-107 mmol/L Carbon Dioxide Level 22 25 20-31 mmol/L Anion Gap 11 10 5-15 Blood Urea Nitrogen 38 #H 54 H 9-23 mg/dL Creatinine 1.04 H 1.33 H 0.550-1.02 mg/dL Glomerular Filtration Rate Calc 54 40 >90 mL/min BUN/Creatinine Ratio 36.5 H 40.6 H 10.0-20.0 Serum Glucose 109 H 104 74-106 mg/dL Serum Osmolality 279 278-298 mOsm/kg Calcium Level 8.4 L 9.2 8.7-10.4 mg/dL Total Bilirubin 0.2 0.2-1.0 mg/dL Aspartate Amino Transferase (AST) 16 13-40 U/L Alanine Aminotransferase (ALT) < 9 7-40 U/L Alkaline Phosphatase 102 46-116 U/L Total Protein 5.0 L 5.7-8.2 g/dL Albumin 3.1 L 3.2-4.8 g/dL Urine Color Light yellow Yellow Urine Clarity Turbid H Clear Urine pH 5.5 5.0-9.0 Urine Specific [place] 1.009 1.001-1.035 Urine Protein Negative Negative Urine Ketones Negative Negative Urine Blood Negative Negative /uL Urine Nitrite Negative Negative Urine Bilirubin Negative Negative Urine Urobilinogen Normal Negative mg/dL Urine Leukocyte Esterase Trace Negative /uL Urine Osmolality 251 mOsm/kg Urine Glucose Normal Normal mg/dL Differential Total Cells Counted 100.0 100 Neutrophils % (Manual) 88 H 37.0-80.0 Band Neutrophils % (Manual) 0 Lymphocytes % (Manual) 6 L 10.0-50.0 Monocytes % (Manual) 6 0-12 Eosinophils % (Manual) 0 0-7 Basophils % (Manual) 0 0.0-2.0 Metamyelocytes % (manual) 0 Myelocytes % (Manual) 0 Promyelocytes % (Manual) 0 Blast Cells % (Manual) 0 Reactive Lymphocytes 0 Platelet Estimate Adequate B-Type Natriuretic Peptide 129.83 0-100 pg/mL Assessment 79-year-old morbidly obese female with history of atrial fibrillation, diastolic heart failure, aortic stenosis status post TAVR who was receiving diuretic therapy with dual diuretics presents to the hospital with hypotension. Patient was transferred to the ICU for this reason. Nephrology consulted due to acute kidney injury Acute kidney injury hemodynamically mediated in the setting of hypotension, presumptive volume depletion Chronic kidney disease stage 2 Anemia per patient chronic previous screen showed schistocytes suspect this is secondary to her TAVR Leukocytosis concerning for sepsis, has a PICC line chronic line History of diastolic heart failure Shock requiring pressors Morbid obese Bed-bound, osteoarthritis of the knees Hold off on diuretic therapy at this time Pressors to maintain mean arterial pressure greater than 65 Recommend Infectious Disease evaluation and blood cultures given prolonged PICC line use rule out bacteremia and rule out endocarditis given patient valvular disease Avoid hypotension P.o. as tolerated Send anemia panel, iron panel Replace electrolytes daily Critical illness, care time spent 35 minutes including talk in a patient and family Plan discussed with: Patient, Daughter MICHELA AMEZQUITA MD Dec 30, 2024 18:58
[2024-12-30] MEDS: VANCOMYCIN 1GM/250ML KIT 250 ML IV SCH (19:27)
[2024-12-31] VITALS (70 sets, daily range): BP systolic 97–144; BP diastolic 35–74; PULSE 49–70; RESP 8–18; TEMP 97.5–98.2; O2SAT 73–100
[2024-12-31 04:07] LABS: Hematocrit 28.8 % (36.0-46.0); Hemoglobin 10.0 g/dL (12.2-16.2); Mean Corpuscular Hemoglobin 28.0 pg (28.0-32.0); Mean Corpuscular Volume 80.8 fL (80.0-100.0); Nucleated Red Blood Cells % 0.1 %
[2024-12-31 04:30] LABS: Albumin 3.4 g/dL (3.2-4.8); Alkaline Phosphatase 98 U/L (46-116); Anion Gap 8 (5-15); BUN/Creatinine Ratio 46.3 (10.0-20.0); Calcium 9.0 mg/dL (8.7-10.4); Carbon Dioxide 25 mmol/L (20-31); Chloride 98 mmol/L (98-107); Glucose 93 mg/dL (74-106); Potassium 4.3 mmol/L (3.5-5.1)
[2024-12-31 04:32] LABS: Alanine Aminotransferase < 9 U/L (7-40); Bilirubin, Total 0.2 mg/dL (0.2-1.0); Blood Urea Nitrogen 44 mg/dL (9-23); Sodium 131 mmol/L (136-145); Total Protein 5.3 g/dL (5.7-8.2)
--- NOTE | 2024-12-31 10:54 | DVHPN2 ---
Subjective Patient is currently off of Levophed, patient's blood cultures came back positive for Gram-positive bacteremia. Reviewed: Care Plan Changes from previous H/P or p: Changes (Patient's current culture came back positive for Gram-positive bacteremia.) Eyes: No Pain, No Vision change, No Conjunctivae inflammation, No Eyelid inflammation, No Other, No Redness ENT: No Ear pain, No Ear discharge, No Nose pain, No Nose discharge, No Nose congestion, No Mouth pain, No Mouth swelling, No Throat pain, No Throat swelling, No Other Cardiovascular: No Chest Pain, No Palpitations, No Orthopnea, No Paroxysmal Noc. Dyspnea, No Edema, No Lt Headedness, No Other Respiratory: No Cough, No Dry; Shortness of breath; No SOB with excertion, No Wheezing, No Hemoptysis, No Pleuritic Pain, No Sputum, No Other Gastrointestinal: Nausea; No Vomiting, No Abdominal Pain; Diarrhea; No Constipation, No Melena, No Hematochezia, No Other Genitourinary: No Dysuria, No Frequency, No Incontinence, No Hematuria, No Retention, No Other Musculoskeletal: No other, No neck pain, No shoulder pain, No arm pain, No back pain, No hand pain, No leg pain, No foot pain Skin: No Rash, No Lesions, No Jaundice, No Bruising; Other (multiple psoriatic patches) Objective Vitals Vital Signs Date Time Temp Pulse Resp B/P (MAP) Pulse Ox O2 Delivery O2 Flow Rate FiO2 12/31/24 10:38 119/35 12/31/24 10:00 57 12/31/24 10:00 12 96 Room Air* 0 21 12/31/24 03:00 98.2 98.2 Intake/Output Intake and Output 12/31/24 07:00 Intake Total 836.952 ml Output Total 1750 ml Balance -913.048 ml Intake Oral 250 ml IV Total 586.952 ml Output Urine Total 1750 ml Exam HEENT pupils are reactive Neck is supple CV is S1-S2 regular rate and rhythm Respiratory diminished breath sounds bases GI positive bowel sound Extremity positive extremity edema 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 Medications Current Medications Medications Dose Ordered Sig/Taran Route Start Time Stop Time Status Last Admin Dose Admin Apixaban 2.5 mg BID PO 12/29/24 22:00 12/31/24 10:39 2.5 MG Aspirin 81 mg DAILY PO 12/30/24 10:00 12/31/24 10:38 81 MG Furosemide 40 mg DAILY PO 12/30/24 10:00 12/31/24 10:38 40 MG Carbidopa/Levodopa 2 tab HS PO 12/29/24 22:00 12/30/24 21:18 2 TAB Sotalol HCl 40 mg DAILY PO 12/30/24 10:00 Levothyroxine Sodium 75 mcg DAILY PO 12/30/24 10:00 12/31/24 10:42 75 MCG Tramadol HCl 50 mg Q6HP PRN PO 12/29/24 23:15 12/31/24 02:24 50 MG Vancomycin HCl 0 ml @ 0 mls/hr UD IV 12/30/24 00:45 Ondansetron HCl 4 mg Q4HP PRN IV 12/30/24 00:45 Docusate Sodium 100 mg BIDPRN PRN PO 12/30/24 00:45 Acetaminophen 650 mg Q6HP PRN PO 12/30/24 00:45 Nitroglycerin 0.4 mg Q5MINP PRN SL 12/30/24 00:45 Norepinephrine Bitartrate 250 ml @ 3.75 mls/hr Q24H IV 12/30/24 16:00 Vancomycin HCl 250 ml @ 250 mls/hr Q12H IV 12/30/24 18:00 12/31/24 06:14 250 MLS/HR Laboratory Results Laboratory Tests 12/31/24 03:37 Chemistry Test 12/31/24 03:37 Albumin 3.4 g/dL (3.2-4.8) Calcium Level 9.0 mg/dL (8.7-10.4) Total Protein 5.3 g/dL (5.7-8.2) L LFT Test 12/31/24 03:37 Alanine Aminotransferase (ALT) < 9 U/L (7-40) Alkaline Phosphatase 98 U/L (46-116) Aspartate Amino Transferase (AST) 18 U/L (13-40) Total Bilirubin 0.2 mg/dL (0.2-1.0) Urinalysis Test 12/29/24 21:58 Urine Color Light yellow (Yellow) Urine Clarity Turbid (Clear) H Urine pH 5.5 (5.0-9.0) Urine Specific [place] 1.009 (1.001-1.035) Urine Protein Negative (Negative) Urine Ketones Negative (Negative) Urine Blood Negative /uL (Negative) Urine Nitrite Negative (Negative) Urine Bilirubin Negative (Negative) Urine Urobilinogen Normal mg/dL (Negative) Urine Leukocyte Esterase Trace /uL (Negative) Urine Osmolality 251 mOsm/kg Urine Glucose Normal mg/dL (Normal) Microbiology Microbiology Date/Time Source Procedure Growth Status 12/30/24 00:55 Blood Blood Culture - Preliminary Resulted Assessment/Plan Assessment/Plan 79-year-old female with a known history of AFib currently on Eliquis, congestive heart failure, hypothyroidism who initially presented to the hospital with generalized weakness patient was found to have systolic blood pressure 70s by the EMS. 1. Hypotension suspect secondary to septic shock/r or due to relative history of hypertension 2. Chronic AFib 3. Gram-positive bacteremia 4. Diarrhea , resolved 5. UTI 6. Acute kidney injury suspected secondary to vasomotor nephropathy 7. S sepsis secondary to UTI/Gram-positive bacteremia 8. Leukocytosis 9. Hyponatremia -repeat blood cultures, 2D echo to rule out endocarditis, remove PICC line, add vancomycin IV. -patient is off of Levophed, can be downgraded to telemetry -physical therapy evaluation and treatment. Plan discussed with: Patient My Orders Orders - JUAN HUMPHRIES MD Procedure Category Date Status Time Norepinephrine 8 PHA 12/30/24 In Process Mg/250ml Kit 16:00 Communication Order ORDERS 12/30/24 Verified 15:58 Clostridium Difficile LIA 12/30/24 Uncollected Toxin 16:50 Stool Bacterial LIA 12/30/24 Uncollected Culture 16:50 Ova & Parasite Exam LIA 12/30/24 Uncollected 16:50 Communication Order ORDERS 12/30/24 Transmitted 17:44 * Infectious [place]- CONS 12/30/24 Transmitted Otilia Adler 17:44 Transfer Orders XFER 12/31/24 Transmitted 10:30 Date of Service: Dec 31, 2024 Billing Provider: JUAN HUMPHRIES MD Common Visit Codes: [id number] INP/OBS CARE(HIGH) JUAN HUMPHRIES MD Dec 31, 2024 10:54
[2024-12-31] MEDS: MEROPENEM 1GM IVPB 50 ML IV SCH (16:10)
--- NOTE | 2024-12-31 16:56 | DVHPN2 ---
Progress Note Date Seen: Dec 31, 2024 Medical Necessity Reason Pt with a Central, PICC or Fol: Yes The following are medically ne: PICC Line Subjective Patient reports: Feels better Review of Systems: Deferred Objective vital signs Vital Sign Date Time Temp Pulse Resp B/P (MAP) Pulse Ox O2 Delivery O2 Flow Rate FiO2 12/31/24 14:15 55 12 99 12/31/24 14:00 Room Air* 0 21 12/31/24 08:00 97.6 97.6 Total Intake and Output 12/30/24 12/30/24 12/31/24 15:00 23:00 07:00 Intake Total 311.50 ml 267.90 ml 507.552 ml Output Total 1350 ml 400 ml Balance 311.50 ml -1082.10 ml 107.552 ml medications Current Medications Medications Dose Ordered Sig/Taran Route Start Time Stop Time Status Last Admin Dose Admin Apixaban 2.5 mg BID PO 12/29/24 22:00 12/31/24 10:39 2.5 MG Aspirin 81 mg DAILY PO 12/30/24 10:00 12/31/24 10:38 81 MG Furosemide 40 mg DAILY PO 12/30/24 10:00 12/31/24 10:38 40 MG Carbidopa/Levodopa 2 tab HS PO 12/29/24 22:00 12/30/24 21:18 2 TAB Sotalol HCl 40 mg DAILY PO 12/30/24 10:00 Tramadol HCl 50 mg Q6HP PRN PO 12/29/24 23:15 12/31/24 02:24 50 MG Vancomycin HCl 0 ml @ 0 mls/hr UD IV 12/30/24 00:45 Ondansetron HCl 4 mg Q4HP PRN IV 12/30/24 00:45 Docusate Sodium 100 mg BIDPRN PRN PO 12/30/24 00:45 Acetaminophen 650 mg Q6HP PRN PO 12/30/24 00:45 Nitroglycerin 0.4 mg Q5MINP PRN SL 12/30/24 00:45 Norepinephrine Bitartrate 250 ml @ 3.75 mls/hr Q24H IV 12/30/24 16:00 Vancomycin HCl 250 ml @ 250 mls/hr Q12H IV 12/30/24 18:00 12/31/24 06:14 250 MLS/HR Levothyroxine Sodium 75 mcg DAILY@0600 PO 01/01/25 06:00 Meropenem 50 ml @ 17 mls/hr Q8HR IV 12/31/24 14:00 12/31/24 16:10 17 MLS/HR Mupirocin 1 applic BID EACHNOSTRI 12/31/24 22:00 01/05/25 21:59 Examination: GENERAL:Abnormal, CVS:Abnormal, SKIN:Abnormal laboratory and microbiology Laboratory Tests 12/31/24 03:37 Test 12/31/24 03:37 Range/Units Serum Glucose 93 74-106 mg/dL Microbiology Date/Time Source Procedure Growth Status 12/30/24 12:20 Nose MRSA Screen - Final Complete 12/30/24 00:55 Blood Blood Culture - Preliminary Resulted Problem List/Assessment/Plan Problem List/Assessment/Plan 79-year-old morbidly obese female with history of atrial fibrillation, diastolic heart failure, aortic stenosis status post TAVR who was receiving diuretic therapy with dual diuretics presents to the hospital with hypotension. Patient was transferred to the ICU for this reason. Nephrology consulted due to acute kidney injury Acute kidney injury hemodynamically mediated in the setting of hypotension, presumptive volume depletion Chronic kidney disease stage 2 Anemia per patient chronic previous screen showed schistocytes suspect this is secondary to her TAVR sepsis bacteremia due to chronic PICC line History of diastolic heart failure Shock requiring pressors Morbid obese Bed-bound, osteoarthritis of the knees bradycardia CHANTAL resolving monitor vancomycin levels Pressors to maintain mean arterial pressure greater than 65 ID consulted for bacteremia, remove picc line Avoid hypotension P.o. as tolerated Replace electrolytes daily Plan discussed with: Patient Critical Care Time (mins): 35 MICHELA AMEZQUITA MD Dec 31, 2024 16:56
[2024-12-31] MEDS: MUPIROCIN 2% OINT 15gm or 22gm FOR MRSA NARES EACHNOSTRI SCH (21:35)
[2025-01-01] VITALS (16 sets, daily range): BP systolic 109–146; BP diastolic 35–69; PULSE 44–71; RESP 10–19; TEMP 97.5–97.8; O2SAT 84–100
[2025-01-01 04:21] LABS: Anion Gap 8 (5-15); Calcium 8.8 mg/dL (8.7-10.4); Carbon Dioxide 28 mmol/L (20-31); Chloride 98 mmol/L (98-107); Potassium 2.7 mmol/L (3.5-5.1); Sodium 134 mmol/L (136-145)
[2025-01-01 04:26] LABS: BUN/Creatinine Ratio 54.2 (10.0-20.0); Glucose 102 mg/dL (74-106)
[2025-01-01 04:27] LABS: Hematocrit 26.4 % (36.0-46.0); Hemoglobin 8.9 g/dL (12.2-16.2); Mean Corpuscular Hemoglobin 27.7 pg (28.0-32.0); Mean Corpuscular Volume 81.9 fL (80.0-100.0); Nucleated Red Blood Cells % 0.1 %
[2025-01-01 04:33] LABS: Blood Urea Nitrogen 45 mg/dL (9-23)
[2025-01-01] MEDS: POTASSIUM CHL 20MEQ/100ML 100 ML IV SCH (05:53)
[2025-01-01] MEDS: LEVOTHYROXINE SODIUM 50 MCG TAB PO SCH (05:54)
--- NOTE | 2025-01-01 07:47 | ECG ---
[facility] Test Date: 2024-12-29 Test Time: 19:26:18 Pat Name: TANESHA FONSECA Department: [facility] ED Room: [address] [place] [address] A Gender: F President [place]: RACIEL : 1945 Requested By: EMERGENCY EMERGENCY Order Number: [id number] Reading MD: Jamal Overton Measurements Intervals [place] Rate: 63 P: -17 MA: 217 QRS: -32 QRSD: 108 T: 46 QT: 465 QTc: 477 Interpretive Statements Sinus rhythm Borderline prolonged MA interval Abnormal R-wave progression, early transition Inferior infarct, old Consider anterior infarct Electronically Signed On 01-01-2025 18:17:09 PDT by Jamal Overton Please click the below link to view image of tracing.
[2025-01-01] MEDS: FUROSEMIDE 20 MG TAB PO SCH (13:05)
[2025-01-01 13:30] LABS: INR 1.03 (0.9-1.15); Partial Thromboplastin Time 26.9 SEC (24.5-34.5); Prothrombin Time 10.9 sec (9.3-11.8)
--- NOTE | 2025-01-01 14:19 | DVHPN2 ---
Progress Note - Dictate Date Seen: Jan 01, 2025 Medical Necessity Reason Pt with a Central, PICC or Fol: Yes The following are medically ne: PICC Line Subjective PT WITH HYPOTENSION POSITIVE BLOOD CX STAPH PRODUCTIVE COUGH HYPOXIA SEVERE ANEMIA HX OF BLEEDING DIATHESIS NOW BEING TRANSFUSE PMH; HEMATURIA HX OF ORGANIC HD S/P TAVR HX OF AV STENOSIS HTN HFpEF DIASTOLIC DYSFUNCTION AFIB ON SOTALOL HYPERCOAGULABLE STATE HX OF DVT MORBID OBESITY 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 ANEMIA HYPONATREMIA vital signs Vital Sign Date Time Temp Pulse Resp B/P (MAP) Pulse Ox O2 Delivery O2 Flow Rate FiO2 01/01/25 13:05 117/39 01/01/25 10:00 55 10 97 01/01/25 09:00 97.5 97.5 01/01/25 08:00 Room Air* 0 21 Total Intake and Output 12/31/24 12/31/24 01/01/25 15:00 23:00 07:00 Intake Total 250 ml 217 ml Output Total 850 ml 1150 ml Balance -600 ml -933 ml medications Current Medications Medications Dose Ordered Sig/Taran Route Start Time Stop Time Status Last Admin Dose Admin Apixaban 2.5 mg BID PO 12/29/24 22:00 01/01/25 10:57 2.5 MG Aspirin 81 mg DAILY PO 12/30/24 10:00 01/01/25 10:57 81 MG Carbidopa/Levodopa 2 tab HS PO 12/29/24 22:00 12/31/24 21:35 2 TAB Sotalol HCl 40 mg DAILY PO 12/30/24 10:00 Tramadol HCl 50 mg Q6HP PRN PO 12/29/24 23:15 01/01/25 13:06 50 MG Vancomycin HCl 0 ml @ 0 mls/hr UD IV 12/30/24 00:45 Ondansetron HCl 4 mg Q4HP PRN IV 12/30/24 00:45 Docusate Sodium 100 mg BIDPRN PRN PO 12/30/24 00:45 Acetaminophen 650 mg Q6HP PRN PO 12/30/24 00:45 Nitroglycerin 0.4 mg Q5MINP PRN SL 12/30/24 00:45 Norepinephrine Bitartrate 250 ml @ 3.75 mls/hr Q24H IV 12/30/24 16:00 Levothyroxine Sodium 75 mcg DAILY@0600 PO 01/01/25 06:00 01/01/25 05:54 75 MCG Meropenem 50 ml @ 17 mls/hr Q8HR IV 12/31/24 14:00 01/01/25 05:53 17 MLS/HR Mupirocin 1 applic BID EACHNOSTRI 12/31/24 22:00 01/05/25 21:59 01/01/25 10:58 1 APPLIC Magnesium Sulfate/ Dextrose 100 ml @ 100 mls/hr Q1HR IV 01/01/25 14:00 01/01/25 15:59 Bumetanide 2 mg DAILY PO 01/02/25 10:00 UNV laboratory and microbiology Laboratory Tests 01/01/25 12:50 01/01/25 03:20 Test 01/01/25 03:20 Range/Units Serum Glucose 102 74-106 mg/dL Problem List HYPOTENSION POSITIVE BLOOD CX STAPH PRODUCTIVE COUGH HYPOXIA SEVERE ANEMIA HX OF BLEEDING DIATHESIS NOW BEING TRANSFUSE PMH; HEMATURIA HX OF ORGANIC HD S/P TAVR HX OF AV STENOSIS HTN HFpEF DIASTOLIC DYSFUNCTION AFIB ON SOTALOL HYPERCOAGULABLE STATE HX OF DVT MORBID OBESITY 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 ANEMIA HYPONATREMIA Assessment/Plan ABX VANCO MEROPENAM DC PICC LINE POSSIBLE SOURCE OF INFECTION NEW ERNESTINA CATH ONCE BLOOD CX NEGATIVE AND FEVER RESOLVED ANF LEUKOCYTOSIS RESOLVES Reviewed lab: MCV, MCHC, MPV are normal. Plan discussed with: Patient, Daughter Critical Care Time(min): 35 MONTRELL RANKIN MD Jan 01, 2025 14:19
[2025-01-01 15:22] LABS: Free T4 (Free Thyroxine) 1.92 ng/dL (0.89-1.76)
[2025-01-01] MEDS: MAGNESIUM SULFATE 1GM/100ML 100 ML IV SCH (16:19)
[2025-01-01] MEDS: HYDROGEL 60 GRAM GEL TOP ONE (18:00)
--- NOTE | 2025-01-01 18:19 | DVHPNRES ---
Progress Note Date Seen: Jan 01, 2025 Resident Creating Document: CHANELLE ALBERT RESIDENT Medical Necessity Reason Pt with a Central, PICC or Fol: Yes The following are medically ne: PICC Line Subjective Review of Systems TANESHA FONSECA is a 79-year-old bed-bound female with past medical history of hypertension, CHF, hypothyroidism, AFib on Eliquis, kidney disease, psoriasis the ED via EMS for with a chief complaint of generalized weakness, diarrhea and nausea 1 day prior to this visit. According to the EMS the patient systolic blood pressure was 70 when they found the patient in home. According to the patient she has diarrhea for because patient has been constipating, taken laxative and had large bowel movement and then started having dizziness, weakness and her blood pressure was in 80s to 90s with a rojas him to visit ED. patient also reported Dr. Cifuentes primary care, started him on Bumex and metolazone and also having problems with a potassium and sodium. She has a very sensitive skin and multiple psoriatic patches and erythema on both arms, she has a PICC line on the left for last 7 month because it is very hard to find veins in her arms and she also mentioned few psoriatic patches on her buttock without any obvious ulceration. She denies fever, chills, shortness of breath, abdominal pain, vomiting, dysuria, hematuria or any positive sick contact. During all these days patient's blood pressure was very low, started on Levophed and shifted to ICU and we will slowly titrate down Levophed and coming off from yesterday Patient seen and examined at the bedside. Reported improvement in her symptoms since admission, reported no new complaints at this time. Patient's blood culture was positive for Gram-positive coccal in clusters, source was likely due to PICC line we tried to remove PICC line but she did not have another access so we are trying to find and other access before we remove this PICC line and ordered repeat blood cultures. Patient was started on vancomycin and meropenem empirically. Ordered echocardiogram, pending. Patient reports: Feels better Objective vital signs Vital Sign Date Time Temp Pulse Resp B/P (MAP) Pulse Ox O2 Delivery O2 Flow Rate FiO2 01/01/25 13:05 117/39 01/01/25 10:00 55 10 97 01/01/25 09:00 97.5 97.5 01/01/25 08:00 Room Air* 0 21 Total Intake and Output 12/31/24 12/31/24 01/01/25 15:00 23:00 07:00 Intake Total 250 ml 217 ml Output Total 850 ml 1150 ml Balance -600 ml -933 ml medications Current Medications Medications Dose Ordered Sig/Taran Route Start Time Stop Time Status Last Admin Dose Admin Apixaban 2.5 mg BID PO 12/29/24 22:00 01/01/25 10:57 2.5 MG Aspirin 81 mg DAILY PO 12/30/24 10:00 01/01/25 10:57 81 MG Carbidopa/Levodopa 2 tab HS PO 12/29/24 22:00 12/31/24 21:35 2 TAB Sotalol HCl 40 mg DAILY PO 12/30/24 10:00 Tramadol HCl 50 mg Q6HP PRN PO 12/29/24 23:15 01/01/25 13:06 50 MG Vancomycin HCl 0 ml @ 0 mls/hr UD IV 12/30/24 00:45 Ondansetron HCl 4 mg Q4HP PRN IV 12/30/24 00:45 Docusate Sodium 100 mg BIDPRN PRN PO 12/30/24 00:45 Acetaminophen 650 mg Q6HP PRN PO 12/30/24 00:45 Nitroglycerin 0.4 mg Q5MINP PRN SL 12/30/24 00:45 Norepinephrine Bitartrate 250 ml @ 3.75 mls/hr Q24H IV 12/30/24 16:00 Levothyroxine Sodium 75 mcg DAILY@0600 PO 01/01/25 06:00 01/01/25 05:54 75 MCG Meropenem 50 ml @ 17 mls/hr Q8HR IV 12/31/24 14:00 01/01/25 14:29 17 MLS/HR Mupirocin 1 applic BID EACHNOSTRI 12/31/24 22:00 01/05/25 21:59 01/01/25 10:58 1 APPLIC Bumetanide 2 mg DAILY PO 01/02/25 10:00 Betamethasone Dipropion Augmented 1 applic BID TOP 01/01/25 22:00 Wound Care/ Dressing Products 1 applic Q12HR TOP 01/02/25 10:00 Wound Care/ Dressing Products 1 applic Q12HR TOP 01/01/25 22:00 UNV Pantoprazole Sodium 40 mg DAILY@0600 PO 01/02/25 06:00 Examination Pt is lying on bed General Appearance: Alert, Oriented X3, Cooperative, Not in acute distress HEENT: Atraumatic, Mucous membranes moist/pink Respiratory: Clear to auscultation, Normal air movement, No added sounds Cardiovascular: Regular rate, Normal S1, Normal S2, No murmurs Abdominal: Active bowel sounds, Soft, no distention, no tenderness Extremities: No edema, Normal pulses, No tenderness/swelling Skin: Scattered purple ecchymosis L& R arms, right posterolateral back skin fold with a large ecchymotic area with a open partial-thickness skin tear, bleeding and buttock scattered with the wounds with a bright red periwound, bleeds Neuro: Normal speech, sensorimotor deficits none Psych/Mental Status: Mental status NL, Mood NL Nurse was there as front line leader during examination laboratory and microbiology Laboratory Tests 01/01/25 12:50 01/01/25 03:20 Test 01/01/25 03:20 Range/Units Serum Glucose 102 74-106 mg/dL Microbiology Date/Time Source Procedure Growth Status 12/30/24 12:20 Nose MRSA Screen - Final Complete 12/30/24 00:55 Blood Blood Culture - Preliminary Resulted Labs and/or images reviewed: Labs reviewed by me, Image(s) reviewed by me Problem List/Assessment/Plan Problem List/Assessment/Plan 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 Acute on chronic diastolic CHF # Hx of paroxysmal AFib, NSR now and secondary hypercoagulable state # HTN # S/p TAVR # hypomagnesemia-repleting -ICU status -elevated BNP -pending echocardiogram -continuing sotalol -Lasix 40 mg daily, switched to bumetanide 2 mg p.o. daily -continue Eliquis 2.5 mg p.o. b.i.d. -aspirin 81 mg -initially on Levophed, off since 12/31 -Dr Cifuentes on board -DC PICC line, repeat blood cultures, started vanc and meropenem RS GI/Liver # DiarrHea likely from laxative use # Constipation PUD PPX: Protonix 40 mg oral # CHANTAL likely VMN on CKD # HX of nephrolithiasis # [place] kidney -strict I&O was -avoid nephrotoxic agents -monitor labs -nephrology on board Metabolic/Endo # Hyponatremia, hypovolemic-improving -monitor labs for now -avoid rapid correction # Hypokalemia # hypomagnesemia - Repleting - Monitor lab # hypothyroidism -continue levothyroxine 75 mcg MSK/skin # Psoriasis plaques with bleeding -continue Hydrogel along with betamethasone -wound consult # ? Psoriatic arthritis -tramadol -outpatient follow up # restless leg -continue ropinirole and carbidopa levodopa ID # septic shock likely from bacteremia # rule out infective endocarditis # Gram-positive bacteremia -continue pressors as needed -preliminary culture showed Gram-positive bacteremia, repeat cultures -remove PICC line -echocardiogram -continue vancomycin and meropenem Drip Levophed- off 12/31 DVT PPX: Eliquis PUD PPX: Protonix Diet: Cardiac diet, Goals of care addressed with the patient and daughter for more than 27 minutes: Full code status Care plan updated to daughter via telephone Case discussed with the Dr. Mendoza, patient and nurse Critical care time spent more than 43 minutes Plan discussed with: Patient, Daughter, Other (rn) My Orders My Orders Orders - CHANELLE ALBERT Procedure Category Date Status Time Complete Blood Count LAB 01/02/25 Verified 04:00 Comprehensive LAB 01/02/25 Verified Metabolic Panel 04:00 Magnesium LAB 01/02/25 Verified 04:00 Pantoprazole Tablet PHA 01/02/25 In Process (Protonix Tablet) 06:00 Date of Service: Jan 01, 2025 Billing Provider: SELMA MENDOZA MD Common Visit Codes: [id number] CARE 30-74 MIN CHANELLE ALBERT Jan 01, 2025 18:19 SELMA MENDOZA MD Jan 02, 2025 16:29
--- NOTE | 2025-01-01 21:01 | DVHPN2 ---
Progress Note Date Seen: Jan 01, 2025 Medical Necessity Reason Pt with a Central, PICC or Fol: Yes The following are medically ne: PICC Line Subjective Patient reports: No new complaints, Feels better Review of Systems: Deferred Objective vital signs Vital Sign Date Time Temp Pulse Resp B/P (MAP) Pulse Ox O2 Delivery O2 Flow Rate FiO2 01/01/25 18:00 12 95 Room Air* 0 21 01/01/25 18:00 59 01/01/25 13:05 117/39 01/01/25 09:00 97.5 97.5 Total Intake and Output 12/31/24 12/31/24 01/01/25 15:00 23:00 07:00 Intake Total 250 ml 217 ml Output Total 850 ml 1150 ml Balance -600 ml -933 ml medications Current Medications Medications Dose Ordered Sig/Taran Route Start Time Stop Time Status Last Admin Dose Admin Apixaban 2.5 mg BID PO 12/29/24 22:00 01/01/25 10:57 2.5 MG Aspirin 81 mg DAILY PO 12/30/24 10:00 01/01/25 10:57 81 MG Carbidopa/Levodopa 2 tab HS PO 12/29/24 22:00 12/31/24 21:35 2 TAB Sotalol HCl 40 mg DAILY PO 12/30/24 10:00 Tramadol HCl 50 mg Q6HP PRN PO 12/29/24 23:15 01/01/25 13:06 50 MG Vancomycin HCl 0 ml @ 0 mls/hr UD IV 12/30/24 00:45 Ondansetron HCl 4 mg Q4HP PRN IV 12/30/24 00:45 Docusate Sodium 100 mg BIDPRN PRN PO 12/30/24 00:45 Acetaminophen 650 mg Q6HP PRN PO 12/30/24 00:45 Nitroglycerin 0.4 mg Q5MINP PRN SL 12/30/24 00:45 Norepinephrine Bitartrate 250 ml @ 3.75 mls/hr Q24H IV 12/30/24 16:00 Levothyroxine Sodium 75 mcg DAILY@0600 PO 01/01/25 06:00 01/01/25 05:54 75 MCG Meropenem 50 ml @ 17 mls/hr Q8HR IV 12/31/24 14:00 01/01/25 14:29 17 MLS/HR Mupirocin 1 applic BID EACHNOSTRI 12/31/24 22:00 01/05/25 21:59 01/01/25 10:58 1 APPLIC Bumetanide 2 mg DAILY PO 01/02/25 10:00 Betamethasone Dipropion Augmented 1 applic BID TOP 01/01/25 22:00 Wound Care/ Dressing Products 1 applic Q12HR TOP 01/02/25 10:00 Wound Care/ Dressing Products 1 applic Q12HR TOP 01/01/25 22:00 UNV Pantoprazole Sodium 40 mg DAILY@0600 PO 01/02/25 06:00 laboratory and microbiology Laboratory Tests 01/01/25 12:50 01/01/25 03:20 Test 01/01/25 03:20 Range/Units Serum Glucose 102 74-106 mg/dL Microbiology Date/Time Source Procedure Growth Status 12/30/24 12:20 Nose MRSA Screen - Final Complete 12/30/24 00:55 Blood Blood Culture - Preliminary Resulted Problem List/Assessment/Plan Problem List/Assessment/Plan Acute kidney injury hemodynamically mediated in the setting of hypotension, presumptive volume depletion Chronic kidney disease stage 2 Anemia per patient chronic previous screen showed schistocytes suspect this is secondary to her TAVR sepsis bacteremia due to chronic PICC line History of diastolic heart failure Shock requiring pressors Morbid obese Bed-bound, osteoarthritis of the knees bradycardia recs CHANTAL resolving monitor vancomycin levels Plan discussed with: Patient SOCRATES POZO MD Jan 01, 2025 21:01
[2025-01-01] MEDS ORDERED: HYDROGEL 60 GRAM GEL TOP SCH (22:00)
[2025-01-01] MEDS: BETAMETHASONE DIPROP0.05% TOPICAL CREAM 15GM TOP SCH (22:00)
[2025-01-02] VITALS (8 sets, daily range): BP systolic 98–150; BP diastolic 55–71; PULSE 53–104; RESP 16–20; TEMP 97.6–98.6; O2SAT 93–100
[2025-01-02] MEDS: PANTOPRAZOLE 40 MG TAB PO SCH (05:41)
[2025-01-02] MEDS: BUMETANIDE 1 MG TAB PO SCH (09:50)
[2025-01-02] MEDS: HYDROGEL 60 GRAM GEL TOP SCH (09:54)
[2025-01-02 10:30] LABS: Hematocrit 34.2 % (36.0-46.0); Hemoglobin 11.2 g/dL (12.2-16.2); Mean Corpuscular Hemoglobin 27.3 pg (28.0-32.0); Mean Corpuscular Volume 83.7 fL (80.0-100.0); Nucleated Red Blood Cells % 0.1 %
[2025-01-02 10:50] LABS: Albumin 3.6 g/dL (3.2-4.8); Alkaline Phosphatase 73 U/L (46-116); Anion Gap 11 (5-15); BUN/Creatinine Ratio 34.4 (10.0-20.0); Calcium 9.3 mg/dL (8.7-10.4); Carbon Dioxide 29 mmol/L (20-31); Magnesium 2.1 mg/dL (1.6-2.6)
[2025-01-02 10:56] LABS: Alanine Aminotransferase < 9 U/L (7-40); Bilirubin, Total 0.2 mg/dL (0.2-1.0); Blood Urea Nitrogen 31 mg/dL (9-23); Chloride 95 mmol/L (98-107); Glucose 148 mg/dL (74-106); Potassium 2.8 mmol/L (3.5-5.1); Sodium 135 mmol/L (136-145); Total Protein 5.6 g/dL (5.7-8.2)
--- NOTE | 2025-01-02 12:18 | DVHSR ---
APPROVED REPORT EXAM: Two-dimensional and M-mode echocardiogram with Doppler and color Doppler. Blood Pressure: 119/35 mmHg INDICATION Rule out infective endocarditis Surgery/Intervention Valve Replacement: Bioprosthetic Type: TAVR RISK FACTORS Obesity: Height: 5'7", Weight: 217 DIMENSIONS LVDd4.4 (3.8-5.7cm)LA (2D)4.8 (1.9-4.0cm)Aortic Root (2.0-3.7cm) LVDs3.0 (2.5-4.0cm)LA (MM) (1.9-4.0cm)Aortic Cusp Exc (1.5-2.0cm) EF (%) 60.0 (55-70%)Rt. Atrium4.5 (1.9-4.0cm)Asc. Aorta cm IVSd1.3 (0.7-1.1cm)RV (D) (1.8-2.4cm) PWd1.1 (0.7-1.1cm) Mitral Valve MitralMitral Stenosis E wave0.70m/sMV Mean GR.mmHg A wave1.12m/sMV Peak GR.mmHg E/A ratio0.62D MVAcm2 DECEL [id number] 1/2 Timems Aortic Valve Aortic ValveAortic Stenosis V10.91m/Chikis Mean GR.7mmHg V21.91m/Chikis Peak GR.15mmHg LVOT Diameter1.9 (1.8-2.4cm)Doppler AVA1.35cm2 Pulmonic Valve V20.82m/s Tricuspid Valve TR Velocity2.13m/s [id number] Other Information Technically limited study due to body habitus, patient laying flat Conclusion LAE XANDER EF >55% MILD TR MILD MR
[2025-01-02] MEDS: VANCOMYCIN 1GM/250ML KIT 250 ML IV ONE (12:42)
--- NOTE | 2025-01-02 12:47 | DVHPN2 ---
Progress Note - Dictate Date Seen: Jan 02, 2025 Medical Necessity Reason Pt with a Central, PICC or Fol: Yes The following are medically ne: PICC Line Subjective PT WITH HYPOTENSION POSITIVE BLOOD CX STAPH PRODUCTIVE COUGH HYPOXIA SEVERE ANEMIA HX OF BLEEDING DIATHESIS NOW BEING TRANSFUSE PMH; HEMATURIA HX OF ORGANIC HD S/P TAVR HX OF AV STENOSIS HTN HFpEF DIASTOLIC DYSFUNCTION AFIB ON SOTALOL HYPERCOAGULABLE STATE HX OF DVT MORBID OBESITY 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 ANEMIA HYPONATREMIA vital signs Vital Sign Date Time Temp Pulse Resp B/P (MAP) Pulse Ox O2 Delivery O2 Flow Rate FiO2 01/02/25 09:50 150/71 01/02/25 09:50 54 01/02/25 08:00 16 98 Room Air* 0 21 01/02/25 07:52 97.6 97.6 Total Intake and Output 01/01/25 01/01/25 01/02/25 15:00 23:00 07:00 Intake Total 101 ml 594 ml 100 ml Output Total 950 ml 900 ml Balance 101 ml -356 ml -800 ml medications Current Medications Medications Dose Ordered Sig/Taran Route Start Time Stop Time Status Last Admin Dose Admin Apixaban 2.5 mg BID PO 12/29/24 22:00 01/02/25 09:50 Aspirin 81 mg DAILY PO 12/30/24 10:00 01/02/25 09:50 Carbidopa/Levodopa 2 tab HS PO 12/29/24 22:00 01/01/25 22:23 Sotalol HCl 40 mg DAILY PO 12/30/24 10:00 01/02/25 09:50 Tramadol HCl 50 mg Q6HP PRN PO 12/29/24 23:15 01/02/25 05:40 Vancomycin HCl 0 ml @ 0 mls/hr UD IV 12/30/24 00:45 Ondansetron HCl 4 mg Q4HP PRN IV 12/30/24 00:45 Docusate Sodium 100 mg BIDPRN PRN PO 12/30/24 00:45 Acetaminophen 650 mg Q6HP PRN PO 12/30/24 00:45 Nitroglycerin 0.4 mg Q5MINP PRN SL 12/30/24 00:45 Levothyroxine Sodium 75 mcg DAILY@0600 PO 01/01/25 06:00 01/02/25 05:29 Meropenem 50 ml @ 17 mls/hr Q8HR IV 12/31/24 14:00 01/02/25 06:15 Mupirocin 1 applic BID EACHNOSTRI 12/31/24 22:00 01/05/25 21:59 01/02/25 09:54 Bumetanide 2 mg DAILY PO 01/02/25 10:00 01/02/25 09:50 Betamethasone Dipropion Augmented 1 applic BID TOP 01/01/25 22:00 01/02/25 09:54 Wound Care/ Dressing Products 1 applic Q12HR TOP 01/02/25 10:00 01/02/25 09:54 Wound Care/ Dressing Products 1 applic Q12HR TOP 01/01/25 22:00 UNV Pantoprazole Sodium 40 mg DAILY@0600 PO 01/02/25 06:00 01/02/25 05:41 laboratory and microbiology Laboratory Tests 01/02/25 09:18 Test 01/02/25 09:18 Range/Units Serum Glucose 148 H 74-106 mg/dL Problem List HYPOTENSION POSITIVE BLOOD CX STAPH PRODUCTIVE COUGH HYPOXIA SEVERE ANEMIA HX OF BLEEDING DIATHESIS NOW BEING TRANSFUSE PMH; HEMATURIA HX OF ORGANIC HD S/P TAVR HX OF AV STENOSIS HTN HFpEF DIASTOLIC DYSFUNCTION AFIB ON SOTALOL HYPERCOAGULABLE STATE HX OF DVT MORBID OBESITY 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 ANEMIA HYPONATREMIA Assessment/Plan ABX VANCO MEROPENAM DC PICC LINE POSSIBLE SOURCE OF INFECTION NEW ERNESTINA CATH ONCE BLOOD CX NEGATIVE AND FEVER RESOLVED ANF LEUKOCYTOSIS RESOLVES Reviewed lab: MCV, MCHC, MPV are normal. Plan discussed with: Patient MONTRELL RANKIN MD Jan 02, 2025 12:47
[2025-01-02] MEDS: POTASSIUM CHL 20 Meq TABLET PO ONE (15:10)
--- NOTE | 2025-01-02 17:28 | DVHPNRES ---
Progress Note Date Seen: Jan 02, 2025 Resident Creating Document: CHANELLE ALBERT RESIDENT Medical Necessity Reason Pt with a Central, PICC or Fol: Yes The following are medically ne: PICC Line Subjective Review of Systems Patient seen and examined at the bedside. Patient reported improvement in her symptoms since admission, reported no new complaints. Please DC PICC line once access for midline has been gained. We will do Port-A-Cath after 2-3 days of PICC line removal. Objective vital signs Vital Sign Date Time Temp Pulse Resp B/P (MAP) Pulse Ox O2 Delivery O2 Flow Rate FiO2 01/02/25 17:00 97.6 70 18 106/60 (75) 98 97.6 01/02/25 08:00 Room Air* 0 21 Total Intake and Output 01/01/25 01/01/25 01/02/25 15:00 23:00 07:00 Intake Total 101 ml 594 ml 100 ml Output Total 950 ml 900 ml Balance 101 ml -356 ml -800 ml medications Current Medications Medications Dose Ordered Sig/Taran Route Start Time Stop Time Status Last Admin Dose Admin Apixaban 2.5 mg BID PO 12/29/24 22:00 01/02/25 09:50 2.5 MG Aspirin 81 mg DAILY PO 12/30/24 10:00 01/02/25 09:50 81 MG Carbidopa/Levodopa 2 tab HS PO 12/29/24 22:00 01/01/25 22:23 2 TAB Sotalol HCl 40 mg DAILY PO 12/30/24 10:00 01/02/25 09:50 40 MG Tramadol HCl 50 mg Q6HP PRN PO 12/29/24 23:15 01/02/25 12:42 50 MG Vancomycin HCl 0 ml @ 0 mls/hr UD IV 12/30/24 00:45 Ondansetron HCl 4 mg Q4HP PRN IV 12/30/24 00:45 Docusate Sodium 100 mg BIDPRN PRN PO 12/30/24 00:45 Acetaminophen 650 mg Q6HP PRN PO 12/30/24 00:45 Nitroglycerin 0.4 mg Q5MINP PRN SL 12/30/24 00:45 Levothyroxine Sodium 75 mcg DAILY@0600 PO 01/01/25 06:00 01/02/25 05:29 75 MCG Meropenem 50 ml @ 17 mls/hr Q8HR IV 12/31/24 14:00 01/02/25 15:11 17 MLS/HR Mupirocin 1 applic BID EACHNOSTRI 12/31/24 22:00 01/05/25 21:59 01/02/25 09:54 1 APPLIC Betamethasone Dipropion Augmented 1 applic BID TOP 01/01/25 22:00 01/02/25 09:54 1 APPLIC Wound Care/ Dressing Products 1 applic Q12HR TOP 01/02/25 10:00 01/02/25 09:54 1 APPLIC Wound Care/ Dressing Products 1 applic Q12HR TOP 01/01/25 22:00 UNV Pantoprazole Sodium 40 mg DAILY@0600 PO 01/02/25 06:00 01/02/25 05:41 40 MG Bumetanide 1 mg DAILY PO 01/03/25 10:00 Examination Pt is lying on bed General Appearance: Alert, Oriented X3, Cooperative, Not in acute distress HEENT: Atraumatic, Mucous membranes moist/pink Respiratory: Clear to auscultation, Normal air movement, No added sounds Cardiovascular: Regular rate, Normal S1, Normal S2, No murmurs Abdominal: Active bowel sounds, Soft, no distention, no tenderness Extremities: No edema, Normal pulses, No tenderness/swelling Skin: Scattered purple ecchymosis L& R arms, right posterolateral back skin fold with a large ecchymotic area with a open partial-thickness skin tear, bleeding and buttock scattered with the wounds with a bright red periwound, bleeds Neuro: Normal speech, sensorimotor deficits none Psych/Mental Status: Mental status NL, Mood NL Nurse was there as risk modeler during examination laboratory and microbiology Laboratory Tests 01/02/25 09:18 Test 01/02/25 09:18 Range/Units Serum Glucose 148 H 74-106 mg/dL Microbiology Date/Time Source Procedure Growth Status 12/30/24 12:20 Nose MRSA Screen - Final Complete 12/30/24 00:55 Blood Blood Culture - Preliminary Resulted Labs and/or images reviewed: Labs reviewed by me, Image(s) reviewed by me Problem List/Assessment/Plan Problem List/Assessment/Plan 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 Acute on chronic diastolic CHF # Hx of paroxysmal AFib, NSR now and secondary hypercoagulable state # HTN # S/p TAVR # hypomagnesemia-repleting -ICU status -elevated BNP -pending echocardiogram -continuing sotalol -Lasix 40 mg daily, switched to bumetanide 2 mg p.o. daily -continue Eliquis 2.5 mg p.o. b.i.d. -aspirin 81 mg -initially on Levophed, off since 12/31 -Dr Cifuentes on board -DC PICC line, repeat blood cultures, started vanc and meropenem RS GI/Liver # Diarrea likely from laxative use # Constipation PUD PPX: Protonix 40 mg oral # CHANTAL likely VMN on CKD # HX of nephrolithiasis # [place] kidney -strict I&O was -avoid nephrotoxic agents -monitor labs -nephrology on board Metabolic/Endo # Hyponatremia, hypovolemic-improving -monitor labs for now -avoid rapid correction # Hypokalemia # hypomagnesemia - Repleting - Monitor lab # hypothyroidism -continue levothyroxine 75 mcg MSK/skin # Psoriasis plaques with bleeding -continue Hydrogel along with betamethasone -wound consult # ? Psoriatic arthritis -tramadol -outpatient follow up # restless leg -continue ropinirole and carbidopa levodopa ID # septic shock likely from bacteremia # rule out infective endocarditis # Gram-positive bacteremia -continue pressors as needed -preliminary culture showed Gram-positive bacteremia, repeat cultures -remove PICC line -echocardiogram -continue vancomycin and meropenem -put midline -Port-A-Cath after 2-3 days of removal of PICC line, IR consult on board Jin Levophed- off 12/31 DVT PPX: Eliquis PUD PPX: Protonix Diet: Cardiac diet, Goals of care addressed with the patient and daughter for more than 27 minutes: Full code status Care plan updated to daughter via telephone Case discussed with the Dr. Gutierrez, patient and nurse Plan discussed with: Patient, Daughter My Orders My Orders Orders - CHANELLE ALBERT RESIDENT Procedure Category Date Status Time Pantoprazole Tablet PHA 01/02/25 In Process (Protonix Tablet) 06:00 Complete Blood Count LAB 01/03/25 Verified 04:00 Comprehensive LAB 01/03/25 Verified Metabolic Panel 04:00 Magnesium LAB 01/03/25 Verified 04:00 Dietary Evaluation Review Comments: Check A1C if high CCHO-60 Cardiac diet Monitor PO intake to meet 75% of her needs Expected Outcomes/Goals: controlled blood sugar, gradual wt loss Date of Service: Jan 02, 2025 Billing Provider: SELMA GUTIERREZ MD Common Visit Codes: [id number] INP/OBS CARE(HIGH) Secondary Visit Codes: [id number] CARE PLAN 30 MINUTES CHANELLE ALBERT RESIDENT Jan 02, 2025 17:28 SELMA GUTIERREZ MD Jan 03, 2025 16:16
--- NOTE | 2025-01-02 20:10 | DVHPN2 ---
Progress Note Date Seen: Jan 02, 2025 Medical Necessity Reason Pt with a Central, PICC or Fol: Yes The following are medically ne: PICC Line Subjective Patient reports: No new complaints Review of Systems: Deferred Objective vital signs Vital Sign Date Time Temp Pulse Resp B/P (MAP) Pulse Ox O2 Delivery O2 Flow Rate FiO2 01/02/25 17:00 97.6 70 18 106/60 (75) 98 97.6 01/02/25 08:00 Room Air* 0 21 Total Intake and Output 01/01/25 01/01/25 01/02/25 15:00 23:00 07:00 Intake Total 101 ml 594 ml 100 ml Output Total 950 ml 900 ml Balance 101 ml -356 ml -800 ml medications Current Medications Medications Dose Ordered Sig/Taran Route Start Time Stop Time Status Last Admin Dose Admin Apixaban 2.5 mg BID PO 12/29/24 22:00 01/02/25 09:50 2.5 MG Aspirin 81 mg DAILY PO 12/30/24 10:00 01/02/25 09:50 81 MG Carbidopa/Levodopa 2 tab HS PO 12/29/24 22:00 01/01/25 22:23 2 TAB Sotalol HCl 40 mg DAILY PO 12/30/24 10:00 01/02/25 09:50 40 MG Tramadol HCl 50 mg Q6HP PRN PO 12/29/24 23:15 01/02/25 20:01 50 MG Vancomycin HCl 0 ml @ 0 mls/hr UD IV 12/30/24 00:45 Ondansetron HCl 4 mg Q4HP PRN IV 12/30/24 00:45 Docusate Sodium 100 mg BIDPRN PRN PO 12/30/24 00:45 Acetaminophen 650 mg Q6HP PRN PO 12/30/24 00:45 Nitroglycerin 0.4 mg Q5MINP PRN SL 12/30/24 00:45 Levothyroxine Sodium 75 mcg DAILY@0600 PO 01/01/25 06:00 01/02/25 05:29 75 MCG Meropenem 50 ml @ 17 mls/hr Q8HR IV 12/31/24 14:00 01/02/25 15:11 17 MLS/HR Mupirocin 1 applic BID EACHNOSTRI 12/31/24 22:00 01/05/25 21:59 01/02/25 09:54 1 APPLIC Betamethasone Dipropion Augmented 1 applic BID TOP 01/01/25 22:00 01/02/25 09:54 1 APPLIC Wound Care/ Dressing Products 1 applic Q12HR TOP 01/02/25 10:00 01/02/25 09:54 1 APPLIC Wound Care/ Dressing Products 1 applic Q12HR TOP 01/01/25 22:00 UNV Pantoprazole Sodium 40 mg DAILY@0600 PO 01/02/25 06:00 01/02/25 05:41 40 MG Bumetanide 1 mg DAILY PO 01/03/25 10:00 laboratory and microbiology Laboratory Tests 01/02/25 09:18 Test 01/02/25 09:18 Range/Units Serum Glucose 148 H 74-106 mg/dL Microbiology Date/Time Source Procedure Growth Status 12/30/24 12:20 Nose MRSA Screen - Final Complete 12/30/24 00:55 Blood Blood Culture - Preliminary Resulted Problem List/Assessment/Plan Problem List/Assessment/Plan Acute kidney injury hemodynamically mediated in the setting of hypotension, presumptive volume depletion Chronic kidney disease stage 2 Anemia per patient chronic previous screen showed schistocytes suspect this is secondary to her TAVR sepsis bacteremia due to chronic PICC line History of diastolic heart failure Shock requiring pressors Morbid obese Bed-bound, osteoarthritis of the knees bradycardia recs CHANTAL resolving monitor vancomycin levels k replace reduce bumex dose Plan discussed with: Patient My Orders My Orders Orders - SOCRATES POZO MD Procedure Category Date Status Time Bumetanide Tablet PHA 01/03/25 In Process (Bumex Tablet) 10:00 Dietary Evaluation Review Comments: Check A1C if high CCHO-60 Cardiac diet Monitor PO intake to meet 75% of her needs Expected Outcomes/Goals: controlled blood sugar, gradual wt loss SOCRATES POZO MD Jan 02, 2025 20:10
[2025-01-03] VITALS (7 sets, daily range): BP systolic 97–155; BP diastolic 49–130; PULSE 60–81; RESP 16–19; TEMP 97–98.5; O2SAT 96–99
[2025-01-03 07:03] LABS: Albumin 3.3 g/dL (3.2-4.8); Alkaline Phosphatase 80 U/L (46-116); Anion Gap 10 (5-15); BUN/Creatinine Ratio 37.5 (10.0-20.0); Calcium 9.2 mg/dL (8.7-10.4); Carbon Dioxide 27 mmol/L (20-31); Magnesium 2.1 mg/dL (1.6-2.6); Potassium 3.9 mmol/L (3.5-5.1)
[2025-01-03 07:16] LABS: Alanine Aminotransferase < 9 U/L (7-40); Bilirubin, Total 0.2 mg/dL (0.2-1.0); Blood Urea Nitrogen 33 mg/dL (9-23); Chloride 95 mmol/L (98-107); Glucose 71 mg/dL (74-106); Sodium 132 mmol/L (136-145); Total Protein 5.3 g/dL (5.7-8.2)
[2025-01-03 08:13] LABS: Hematocrit 32.3 % (36.0-46.0); Hemoglobin 10.9 g/dL (12.2-16.2); Mean Corpuscular Hemoglobin 27.7 pg (28.0-32.0); Mean Corpuscular Volume 82.4 fL (80.0-100.0)
[2025-01-03] MEDS: BUMETANIDE 1 MG TAB PO SCH (10:20)
--- NOTE | 2025-01-03 10:39 | DVHINCON2 ---
Date of service: Jan 03, 2025 Family History: Cancer G8 MOTHER G8 SISTER Chronic obstructive lung disease (situation) G8 FATHER Family history: Cardiovascular disease G8 MOTHER G8 FATHER Family history: Hypertension G8 MOTHER G8 FATHER Suicide G8 FATHER Allergies: Coded Allergies: Penicillins (Unverified Allergy, Severe, 03/16/15) Sulfa Antibiotics (Unverified Allergy, Severe, 03/16/15) Morphine (Verified Allergy, Intermediate, ALTERED, 01/31/18) PER PATIENT AND HER DAUGHTER SHE CAN NOT HAVE Ceftriaxone (Verified Allergy, Unknown, 01/31/18) COUGH AND CHILLS Home Meds Reported Medications Bumetanide (Bumex) 2 Mg Tab, PO DAILY 12/31/24 Tramadol Hcl (Tramadol Hcl) 50 Mg Tab, 1 TAB PO QID 04/25/24 Aspirin (Aspirin Low Dose) 81 Mg Tab, 1 TAB PO DAILY 04/25/24 Ropinirole Hydrochloride (Ropinirole Hcl) 1 Mg Tab, 1 TAB PO 04/25/24 Wntkoxxwpsuq-Hmqzxfoagzyrh-Csq (Dermacinrx Therazole Chuy 1-0.05 & 20 %) 1 Chuy Chuy 04/25/24 Clobetasol Propionate (Clobetasol Propionate) 0.05 % Deepika, TOP 04/25/24 Ondansetron HCl (Ondansetron Hydrochloride) 4 Mg Tab, 1 TAB PO Q8HPRN 04/25/24 Sotalol Hcl (Sotalol Hcl) 80 Mg Tab, 0.5 TAB PO DAILY, #60 TAB 5 Refills 04/25/24 Furosemide (Lasix) 20 Mg Tb, 20 MG PO DAILY, TAB 11/17/23 Apixaban Base (ELIQUIS) 2.5 Mg Tab, 2.5 MG PO BID, TAB 11/17/23 Esomeprazole Magnesium (Esomeprazole Magnesium Dr) 40 Mg Cap, 40 MG PO DAILY, CAP 11/03/23 Acetaminophen (8 Hour Arthritis Pain Rel) 650 Mg Tab, 650 MG PO TID for ARTHRITIS 01/23/22 Betamethasone Dipropionate (Betamethasone Dipropionat) 0.05 % Cre, 1 APPLIC TOP DIRECTED PRN for ECZEMA RASH 01/23/22 Levodopa W/Carbidopa (Sinemet) 10 /100 Tab, 2 TAB PO HS for TREMORS 01/23/22 Sotalol HCl (Sotalol Hydrochloride AF) 80 Mg Tab, 0.5 TAB PO DAILY for ARRYTHMIA 01/23/22 Clotrimazole W/ Betamethasone (Clotrimazole/Betamethason) Diprop Lot, 1 APPLIC TOP BID PRN for ECZEMA RASH 02/05/20 Albuterol Sulfate (Albuterol Sulfate) 0.083 % Neb, 1 VIAL NEB Q6HR PRN for SHORTNESS OF BREATH 02/05/20 Fluticasone Propionate (Nasal) (Flonase Allergy Relief) 50 Mcg/Act Spr, 1 SPR NA BID PRN for ALLERGIES 02/05/20 Ondansetron (Zofran) 4 Mg Tab, 1 TAB PO TID PRN for NAUSEA OR VOMITING 02/05/20 Aspirin (ASPIRIN 81) 81 Mg Tab, 1 TAB PO DAILY for HEART ATTACK PREVENTION 02/05/20 Potassium Chloride (Potassium Chloride ER) 20 Meq Tab, 1 TAB PO DAILY for SUPPLEMENT 02/05/20 Apremilast Base (Otezla) 30 Mg Tab, 1 TAB PO BID for ARTHRITIS 03/28/19 Tramadol HCl (Tramadol Hydrochloride) 50 Mg Tab, 1 TAB PO QID PRN for MODERATE PAIN (4-6 PAIN SCALE) 10/30/18 Albuterol Sulfate (VENTOLIN MDI) 90 Mcg Ih, 2 PUFF IN Q6HR PRN for SHORTNESS OF BREATH 04/21/18 Levothyroxine Sodium (Levothyroxine Sodium) 75 Mcg Tab, 1 TAB PO DAILY for HYPOTHYROIDISM, 5 Refills 03/17/15 Ropinirole Hydrochloride (Requip) 1 Mg Tab, 1 TAB PO HS for RESTLESS LEGS 03/17/15 Discontinued Reported Medications Furosemide (Furosemide) 40 Mg Tab, 1 TAB PO DAILY 04/25/24 Current Medications Current Medications Medications (Trade) Dose Ordered Sig/Taran Route PRN Reason Start Time Stop Time Status Last Admin Bumetanide (Bumex Tablet) 1 mg DAILY PO 01/03/25 10:00 01/03/25 10:20 Vital Signs Vital Signs Date Time Temp Pulse Resp B/P (MAP) Pulse Ox O2 Delivery O2 Flow Rate FiO2 01/03/25 10:21 73 122/72 01/03/25 09:00 97.5 19 97 97.5 01/03/25 08:00 Room Air* 0 21 Labs/Diagnostic Data Labs Test 01/03/25 05:00 01/02/25 09:18 01/01/25 12:50 01/01/25 03:20 Range/Units White Blood Count 13.5 H 4.4-10.8 10^3/uL Red Blood Count 3.92 L 4.0-5.20 10^6/uL Hemoglobin 10.9 L 12.2-16.2 g/dL Hematocrit 32.3 L 36.0-46.0 % Mean Corpuscular Volume 82.4 80.0-100.0 fL Mean Corpuscular Hemoglobin 27.7 L 28.0-32.0 pg Mean Corpuscular Hemoglobin Concent 33.6 32.0-36.0 g/dL Red Cell Distribution Width 15.2 H 11.8-14.3 % Platelet Count 291 140-450 10^3/uL Mean Platelet Volume 7.6 6.9-10.8 fL Neutrophils (%) (Auto) 37.0-80.0 % Lymphocytes (%) (Auto) 10.0-50.0 % Monocytes (%) (Auto) 0.0-12.0 % Basophils (%) (Auto) 0.0-2.0 % Neutrophils # (Auto) 1.6-8.6 10 ^3/uL Lymphocytes # (Auto) 0.4-5.4 10 ^3/uL Monocytes # (Auto) 0-1.3 10 ^3/uL Sodium Level 132 L 136-145 mmol/L Potassium Level 3.9 3.5-5.1 mmol/L Chloride Level 95 L 98-107 mmol/L Carbon Dioxide Level 27 20-31 mmol/L Anion Gap 10 5-15 Blood Urea Nitrogen 33 H 9-23 mg/dL Creatinine 0.88 0.550-1.02 mg/dL Glomerular Filtration Rate Calc 66 >90 mL/min BUN/Creatinine Ratio 37.5 H 10.0-20.0 Serum Glucose 71 L 74-106 mg/dL Calcium Level 9.2 8.7-10.4 mg/dL Magnesium Level 2.1 1.6-2.6 mg/dL Total Bilirubin 0.2 0.2-1.0 mg/dL Aspartate Amino Transferase (AST) 19 13-40 U/L Alanine Aminotransferase (ALT) < 9 7-40 U/L Alkaline Phosphatase 80 46-116 U/L Total Protein 5.3 L 5.7-8.2 g/dL Albumin 3.3 3.2-4.8 g/dL Random Vancomycin Level 26.8 H 5-10 ug/mL Eosinophils (%) (Auto) 1.9 0.0-7.0 % Eosinophils # (Auto) 0.2 0-0.8 10 ^3/uL Basophils # (Auto) 0 0-0.2 10 ^3/uL Nucleated Red Blood Cells 0.1 % Prothrombin Time 10.9 9.3-11.8 sec Prothrombin Time INR 1.03 0.9-1.15 Activated Partial Thromboplast Time 26.9 24.5-34.5 SEC Hemoglobin A1c 4.9 <5.7 % A1C Thyroid Stimulating Hormone (TSH) 0.12 L 0.55-4.78 uIU/mL Free Thyroxine (T4) Calculated 1.92 H 0.89-1.76 ng/dL Total Triiodothyronine (TT3) 0.69 0.60-1.81 ng/mL Test 12/31/24 19:02 12/30/24 07:50 12/29/24 21:58 12/29/24 20:52 Range/Units Vancomycin Level Trough 27.2 H 5-10 ug/mL Serum Osmolality 279 278-298 mOsm/kg Urine Color Light yellow Yellow Urine Clarity Turbid H Clear Urine pH 5.5 5.0-9.0 Urine Specific [place] 1.009 1.001-1.035 Urine Protein Negative Negative Urine Ketones Negative Negative Urine Blood Negative Negative /uL Urine Nitrite Negative Negative Urine Bilirubin Negative Negative Urine Urobilinogen Normal Negative mg/dL Urine Leukocyte Esterase Trace Negative /uL Urine Osmolality 251 mOsm/kg Urine Glucose Normal Normal mg/dL B-Type Natriuretic Peptide 129.83 0-100 pg/mL Microbiology Date/Time Source Procedure Growth Status 01/01/25 20:09 Blood Blood Culture - Preliminary Resulted 12/30/24 12:20 Nose MRSA Screen - Final Complete Assessment Portacath insertion and attendant risks and complications explained in detail Plan discussed with: Patient DENY BENZ MD Jan 03, 2025 10:39
--- NOTE | 2025-01-03 10:41 | DVHINCON2 ---
Date of service: Jan 03, 2025 Reason for Consultation mirna cath placement History of Present Illness History Source: Patient, RN Notes, Notes HPI 79-year-old female morbidly obese, bed-bound presented to [facility] ED with complaint of generalized weakness. Patient reports she has been experiencing generalized weakness associated with shortness of breaths, nausea, diarrhea for the past 2 days, getting worse today that prompted this visit. Home Meds Reported Medications Bumetanide (Bumex) 2 Mg Tab, PO DAILY 12/31/24 Tramadol Hcl (Tramadol Hcl) 50 Mg Tab, 1 TAB PO QID 04/25/24 Aspirin (Aspirin Low Dose) 81 Mg Tab, 1 TAB PO DAILY 04/25/24 Ropinirole Hydrochloride (Ropinirole Hcl) 1 Mg Tab, 1 TAB PO 04/25/24 Qrbcvnjqeghs-Hfycqaregblcu-Ptn (Dermacinrx Therazole Chuy 1-0.05 & 20 %) 1 Chuy Chuy 04/25/24 Clobetasol Propionate (Clobetasol Propionate) 0.05 % Deepika, TOP 04/25/24 Ondansetron HCl (Ondansetron Hydrochloride) 4 Mg Tab, 1 TAB PO Q8HPRN 04/25/24 Sotalol Hcl (Sotalol Hcl) 80 Mg Tab, 0.5 TAB PO DAILY, #60 TAB 5 Refills 04/25/24 Furosemide (Lasix) 20 Mg Tb, 20 MG PO DAILY, TAB 11/17/23 Apixaban Base (ELIQUIS) 2.5 Mg Tab, 2.5 MG PO BID, TAB 11/17/23 Esomeprazole Magnesium (Esomeprazole Magnesium Dr) 40 Mg Cap, 40 MG PO DAILY, CAP 11/03/23 Acetaminophen (8 Hour Arthritis Pain Rel) 650 Mg Tab, 650 MG PO TID for ARTHRITIS 01/23/22 Betamethasone Dipropionate (Betamethasone Dipropionat) 0.05 % Cre, 1 APPLIC TOP DIRECTED PRN for ECZEMA RASH 01/23/22 Levodopa W/Carbidopa (Sinemet) 10 /100 Tab, 2 TAB PO HS for TREMORS 01/23/22 Sotalol HCl (Sotalol Hydrochloride AF) 80 Mg Tab, 0.5 TAB PO DAILY for ARRYTHMIA 01/23/22 Clotrimazole W/ Betamethasone (Clotrimazole/Betamethason) Diprop Lot, 1 APPLIC TOP BID PRN for ECZEMA RASH 02/05/20 Albuterol Sulfate (Albuterol Sulfate) 0.083 % Neb, 1 VIAL NEB Q6HR PRN for SHORTNESS OF BREATH 02/05/20 Fluticasone Propionate (Nasal) (Flonase Allergy Relief) 50 Mcg/Act Spr, 1 SPR NA BID PRN for ALLERGIES 02/05/20 Ondansetron (Zofran) 4 Mg Tab, 1 TAB PO TID PRN for NAUSEA OR VOMITING 02/05/20 Aspirin (ASPIRIN 81) 81 Mg Tab, 1 TAB PO DAILY for HEART ATTACK PREVENTION 02/05/20 Potassium Chloride (Potassium Chloride ER) 20 Meq Tab, 1 TAB PO DAILY for SUPPLEMENT 02/05/20 Apremilast Base (Otezla) 30 Mg Tab, 1 TAB PO BID for ARTHRITIS 03/28/19 Tramadol HCl (Tramadol Hydrochloride) 50 Mg Tab, 1 TAB PO QID PRN for MODERATE PAIN (4-6 PAIN SCALE) 10/30/18 Albuterol Sulfate (VENTOLIN MDI) 90 Mcg Ih, 2 PUFF IN Q6HR PRN for SHORTNESS OF BREATH 04/21/18 Levothyroxine Sodium (Levothyroxine Sodium) 75 Mcg Tab, 1 TAB PO DAILY for HYPOTHYROIDISM, 5 Refills 03/17/15 Ropinirole Hydrochloride (Requip) 1 Mg Tab, 1 TAB PO HS for RESTLESS LEGS 03/17/15 Discontinued Reported Medications Furosemide (Furosemide) 40 Mg Tab, 1 TAB PO DAILY 04/25/24 Past Medical History Cardiac: AFIB, CHF, HTN Pulmonary: No pertinent Hx Central Nervous System: No pertinent Hx GI: No pertinent Hx Hemotology/Oncology: Anemia NOS Hepatobiliary: No pertinent Hx Psychiatric: No pertinent Hx Musculoskeletal: Other Rheumotologic: Rheumatoid arthritis Infectious Disease: No peritnent Hx ENT: No pertinent Hx Endocrine: IDDM Dermatology: Other (psoriatic patches) Past Surgical History: Tonsillectomy Patient Family History: Cancer G8 MOTHER G8 SISTER Chronic obstructive lung disease (situation) G8 FATHER Family history: Cardiovascular disease G8 MOTHER G8 FATHER Family history: Hypertension G8 MOTHER G8 FATHER Suicide G8 FATHER Smoker: No Hx (Negative) Alocohol: None Drugs: None Lives with: Prison Review of Systems Constitutional: Weakness Ears, Nose, & Throat: No symptom reported Eyes: No symptom reported Pulmonary/Respiratory: Other (SOB) Cardiovascular: No symptom reported Gastrointestinal: Nausea, Vomiting Genitourinary: No symptom reported Musculoskeletal: No symptom reported Skin: No symptom reported Psychiatric: No symptom reported Endocrine: No symptom reported Hemotologic/Lymphatic: No symptom reported H&P Exam Vital Signs Vital Signs Date Time Temp Pulse Resp B/P (MAP) Pulse Ox O2 Delivery O2 Flow Rate FiO2 01/03/25 10:21 73 122/72 01/03/25 09:00 97.5 19 97 97.5 01/03/25 08:00 Room Air* 0 21 General Appeara: Well developed, Obese Head Exam: Normal inspection Neck Exam: Normal inspection Nasal Exam: Normal inspection Pulmonary/Respiratory: Normal inspection 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, Normal speech, PERRL Neuro/Mental St: Alert, Oriented Eye contact/ Speech: Cooperative, Good eye contact, Normal speech Labs/Xrays Labs Test 01/03/25 05:00 01/02/25 09:18 01/01/25 12:50 01/01/25 03:20 Range/Units White Blood Count 13.5 H 4.4-10.8 10^3/uL Red Blood Count 3.92 L 4.0-5.20 10^6/uL Hemoglobin 10.9 L 12.2-16.2 g/dL Hematocrit 32.3 L 36.0-46.0 % Mean Corpuscular Volume 82.4 80.0-100.0 fL Mean Corpuscular Hemoglobin 27.7 L 28.0-32.0 pg Mean Corpuscular Hemoglobin Concent 33.6 32.0-36.0 g/dL Red Cell Distribution Width 15.2 H 11.8-14.3 % Platelet Count 291 140-450 10^3/uL Mean Platelet Volume 7.6 6.9-10.8 fL Neutrophils (%) (Auto) 37.0-80.0 % Lymphocytes (%) (Auto) 10.0-50.0 % Monocytes (%) (Auto) 0.0-12.0 % Basophils (%) (Auto) 0.0-2.0 % Neutrophils # (Auto) 1.6-8.6 10 ^3/uL Lymphocytes # (Auto) 0.4-5.4 10 ^3/uL Monocytes # (Auto) 0-1.3 10 ^3/uL Sodium Level 132 L 136-145 mmol/L Potassium Level 3.9 3.5-5.1 mmol/L Chloride Level 95 L 98-107 mmol/L Carbon Dioxide Level 27 20-31 mmol/L Anion Gap 10 5-15 Blood Urea Nitrogen 33 H 9-23 mg/dL Creatinine 0.88 0.550-1.02 mg/dL Glomerular Filtration Rate Calc 66 >90 mL/min BUN/Creatinine Ratio 37.5 H 10.0-20.0 Serum Glucose 71 L 74-106 mg/dL Calcium Level 9.2 8.7-10.4 mg/dL Magnesium Level 2.1 1.6-2.6 mg/dL Total Bilirubin 0.2 0.2-1.0 mg/dL Aspartate Amino Transferase (AST) 19 13-40 U/L Alanine Aminotransferase (ALT) < 9 7-40 U/L Alkaline Phosphatase 80 46-116 U/L Total Protein 5.3 L 5.7-8.2 g/dL Albumin 3.3 3.2-4.8 g/dL Random Vancomycin Level 26.8 H 5-10 ug/mL Eosinophils (%) (Auto) 1.9 0.0-7.0 % Eosinophils # (Auto) 0.2 0-0.8 10 ^3/uL Basophils # (Auto) 0 0-0.2 10 ^3/uL Nucleated Red Blood Cells 0.1 % Prothrombin Time 10.9 9.3-11.8 sec Prothrombin Time INR 1.03 0.9-1.15 Activated Partial Thromboplast Time 26.9 24.5-34.5 SEC Hemoglobin A1c 4.9 <5.7 % A1C Thyroid Stimulating Hormone (TSH) 0.12 L 0.55-4.78 uIU/mL Free Thyroxine (T4) Calculated 1.92 H 0.89-1.76 ng/dL Total Triiodothyronine (TT3) 0.69 0.60-1.81 ng/mL Test 12/31/24 19:02 12/30/24 07:50 12/29/24 21:58 12/29/24 20:52 Range/Units Vancomycin Level Trough 27.2 H 5-10 ug/mL Serum Osmolality 279 278-298 mOsm/kg Urine Color Light yellow Yellow Urine Clarity Turbid H Clear Urine pH 5.5 5.0-9.0 Urine Specific [place] 1.009 1.001-1.035 Urine Protein Negative Negative Urine Ketones Negative Negative Urine Blood Negative Negative /uL Urine Nitrite Negative Negative Urine Bilirubin Negative Negative Urine Urobilinogen Normal Negative mg/dL Urine Leukocyte Esterase Trace Negative /uL Urine Osmolality 251 mOsm/kg Urine Glucose Normal Normal mg/dL B-Type Natriuretic Peptide 129.83 0-100 pg/mL Microbiology Date/Time Source Procedure Growth Status 01/01/25 20:09 Blood Blood Culture - Preliminary Resulted 12/30/24 12:20 Nose MRSA Screen - Final Complete Assessment/Plan Plan mirna cath placement tomorrow Am explained procedure to patient all risks and complications explained in detail Plan discussed with: Patient, Other (Dr. deny Leiva ) Visit Coding Surgery Date of Service if different f: Jan 03, 2025 Billing Provider: DENY LEIVA MD Surgery Visit Codes: 77224 - INP CONSULT <80 MIN FREIDA LANDEROS NP Jan 03, 2025 10:41
[2025-01-03 11:03] LABS: Total Cells Counted 100.0 (100)
--- NOTE | 2025-01-03 13:48 | DVHPN2 ---
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 ANEMIA HYPONATREMIA vital signs Vital Sign Date Time Temp Pulse Resp B/P (MAP) Pulse Ox O2 Delivery O2 Flow Rate FiO2 01/03/25 10:21 73 122/72 01/03/25 09:00 97.5 19 97 97.5 01/03/25 08:00 Room Air* 0 21 Total Intake and Output 01/02/25 01/02/25 01/03/25 15:00 23:00 07:00 Intake Total 50 ml 760 ml 300 ml Output Total 700 ml 250 ml Balance 50 ml 60 ml 50 ml medications Current Medications Medications Dose Ordered Sig/Taran Route Start Time Stop Time Status Last Admin Dose Admin Apixaban 2.5 mg BID PO 12/29/24 22:00 01/03/25 10:19 2.5 MG Aspirin 81 mg DAILY PO 12/30/24 10:00 01/03/25 10:08 81 MG Carbidopa/Levodopa 2 tab HS PO 12/29/24 22:00 01/02/25 22:28 2 TAB Sotalol HCl 40 mg DAILY PO 12/30/24 10:00 01/03/25 10:21 40 MG Tramadol HCl 50 mg Q6HP PRN PO 12/29/24 23:15 01/03/25 10:19 50 MG Vancomycin HCl 0 ml @ 0 mls/hr UD IV 12/30/24 00:45 Ondansetron HCl 4 mg Q4HP PRN IV 12/30/24 00:45 Docusate Sodium 100 mg BIDPRN PRN PO 12/30/24 00:45 Acetaminophen 650 mg Q6HP PRN PO 12/30/24 00:45 Nitroglycerin 0.4 mg Q5MINP PRN SL 12/30/24 00:45 Levothyroxine Sodium 75 mcg DAILY@0600 PO 01/01/25 06:00 01/03/25 05:50 75 MCG Meropenem 50 ml @ 17 mls/hr Q8HR IV 12/31/24 14:00 01/03/25 05:50 17 MLS/HR Mupirocin 1 applic BID EACHNOSTRI 12/31/24 22:00 01/05/25 21:59 01/03/25 10:22 1 APPLIC Betamethasone Dipropion Augmented 1 applic BID TOP 01/01/25 22:00 01/03/25 10:21 1 APPLIC Wound Care/ Dressing Products 1 applic Q12HR TOP 01/02/25 10:00 01/03/25 10:22 1 APPLIC Wound Care/ Dressing Products 1 applic Q12HR TOP 01/01/25 22:00 UNV Pantoprazole Sodium 40 mg DAILY@0600 PO 01/02/25 06:00 01/03/25 05:50 40 MG Bumetanide 1 mg DAILY PO 01/03/25 10:00 01/03/25 10:20 1 MG laboratory and microbiology Laboratory Tests 01/03/25 05:00 Test 01/03/25 05:00 Range/Units Serum Glucose 71 L 74-106 mg/dL Problem List HYPOTENSION POSITIVE BLOOD CX STAPH PRODUCTIVE COUGH HYPOXIA SEVERE ANEMIA HX OF BLEEDING DIATHESIS NOW BEING TRANSFUSE PMH; HEMATURIA HX OF ORGANIC HD S/P TAVR HX OF AV STENOSIS HTN HFpEF DIASTOLIC DYSFUNCTION AFIB ON SOTALOL HYPERCOAGULABLE STATE HX OF DVT MORBID OBESITY 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 Dietary Evaluation Review Comments: Check A1C if high CCHO-60 Cardiac diet Monitor PO intake to meet 75% of her needs Expected Outcomes/Goals: controlled blood sugar, gradual wt loss Plan discussed with: Patient MONTRELL RANKIN MD Jan 03, 2025 13:48
--- NOTE | 2025-01-03 17:14 | DVHPNRES ---
Progress Note Date Seen: Jan 03, 2025 Resident Creating Document: CHANELLE ALBERT RESIDENT Medical Necessity Reason Pt with a Central, PICC or Fol: Yes The following are medically ne: PICC Line Subjective Review of Systems 01/02: Please DC PICC line once access for midline has been gained. We will do Port-A-Cath after 2-3 days of PICC line removal. Patient seen and examined at the bedside. Patient reported improvement in her symptoms since admission, reported no new complaints. Today discontinued PICC line after achieving peripheral line. Port A cath placement likely tomorrow by surgeon. NPO after midnight. 1 set of new blood cultures preliminary showing G positive cocci in clusters. Objective vital signs Vital Sign Date Time Temp Pulse Resp B/P (MAP) Pulse Ox O2 Delivery O2 Flow Rate FiO2 01/03/25 17:00 98.0 64 19 97/49 (65) 99 98.0 01/03/25 08:00 Room Air* 0 21 Total Intake and Output 01/02/25 01/02/25 01/03/25 15:00 23:00 07:00 Intake Total 50 ml 760 ml 300 ml Output Total 700 ml 250 ml Balance 50 ml 60 ml 50 ml medications Current Medications Medications Dose Ordered Sig/Taran Route Start Time Stop Time Status Last Admin Dose Admin Apixaban 2.5 mg BID PO 12/29/24 22:00 01/03/25 10:19 2.5 MG Aspirin 81 mg DAILY PO 12/30/24 10:00 01/03/25 10:08 81 MG Carbidopa/Levodopa 2 tab HS PO 12/29/24 22:00 01/02/25 22:28 2 TAB Sotalol HCl 40 mg DAILY PO 12/30/24 10:00 01/03/25 10:21 40 MG Tramadol HCl 50 mg Q6HP PRN PO 12/29/24 23:15 01/03/25 10:19 50 MG Vancomycin HCl 0 ml @ 0 mls/hr UD IV 12/30/24 00:45 Ondansetron HCl 4 mg Q4HP PRN IV 12/30/24 00:45 Docusate Sodium 100 mg BIDPRN PRN PO 12/30/24 00:45 Acetaminophen 650 mg Q6HP PRN PO 12/30/24 00:45 Nitroglycerin 0.4 mg Q5MINP PRN SL 12/30/24 00:45 Levothyroxine Sodium 75 mcg DAILY@0600 PO 01/01/25 06:00 01/03/25 05:50 75 MCG Meropenem 50 ml @ 17 mls/hr Q8HR IV 12/31/24 14:00 01/03/25 15:14 17 MLS/HR Mupirocin 1 applic BID EACHNOSTRI 12/31/24 22:00 01/05/25 21:59 01/03/25 10:22 1 APPLIC Betamethasone Dipropion Augmented 1 applic BID TOP 01/01/25 22:00 01/03/25 10:21 1 APPLIC Wound Care/ Dressing Products 1 applic Q12HR TOP 01/02/25 10:00 01/03/25 10:22 1 APPLIC Wound Care/ Dressing Products 1 applic Q12HR TOP 01/01/25 22:00 UNV Pantoprazole Sodium 40 mg DAILY@0600 PO 01/02/25 06:00 01/03/25 05:50 40 MG Bumetanide 1 mg DAILY PO 01/03/25 10:00 01/03/25 10:20 1 MG Examination Pt is lying on bed General Appearance: Alert, Oriented X3, Cooperative, Not in acute distress HEENT: Atraumatic, Mucous membranes moist/pink Respiratory: Clear to auscultation, Normal air movement, No added sounds Cardiovascular: Regular rate, Normal S1, Normal S2, No murmurs Abdominal: Active bowel sounds, Soft, no distention, no tenderness Extremities: No edema, Normal pulses, No tenderness/swelling Skin: Scattered purple ecchymosis L& R arms, right posterolateral back skin fold with a large ecchymotic area with a open partial-thickness skin tear, bleeding and buttock scattered with the wounds with a bright red periwound, bleeds Neuro: Normal speech, sensorimotor deficits none Psych/Mental Status: Mental status NL, Mood NL Nurse was there as lining ironer during examination laboratory and microbiology Laboratory Tests 01/03/25 05:00 Test 01/03/25 05:00 Range/Units Serum Glucose 71 L 74-106 mg/dL Microbiology Date/Time Source Procedure Growth Status 01/01/25 20:09 Blood Blood Culture - Preliminary Resulted 12/30/24 12:20 Nose MRSA Screen - Final Complete Labs and/or images reviewed: Labs reviewed by me, Image(s) reviewed by me Problem List/Assessment/Plan Problem List/Assessment/Plan [employer] # Hypovolemic vs septic shock, required pressors # R/o IE- DC PICC line, repeat blood cultures, started vanc and meropenem # G+ bacteremia with a staph capitis # ? Acute on chronic diastolic CHF # Hx of paroxysmal AFib, NSR now and secondary hypercoagulable state # HTN # S/p TAVR # hypomagnesemia-repleting -ICU status downgraded to med surge -elevated BNP -Echocardiogram LVEF 55% with mild TR, MR -continuing sotalol -Lasix 40 mg daily, switched to bumetanide 2 mg p.o. daily -continue Eliquis 2.5 mg p.o. b.i.d. -aspirin 81 mg -initially on Levophed, off since 12/31 -Dr Cifuentes on board -DC PICC line, repeat blood cultures, started vanc and meropenem RS GI/Liver # Diarrhea likely from laxative use # Constipation PUD PPX: Protonix 40 mg oral # CHANTAL likely VMN on CKD-improving # HX of nephrolithiasis # [place] kidney -strict I&O was -avoid nephrotoxic agents -monitor labs -nephrology on board Metabolic/Endo # Hyponatremia, hypovolemic-improving -monitor labs for now -avoid rapid correction # Hypokalemia # hypomagnesemia - Repleting - Monitor lab # hypothyroidism -continue levothyroxine 75 mcg MSK/skin # Psoriasis plaques with bleeding -continue Hydrogel along with betamethasone -wound consult # ? Psoriatic arthritis -tramadol -outpatient follow up # restless leg -continue ropinirole and carbidopa levodopa ID # septic shock likely from bacteremia # rule out infective endocarditis # Gram-positive bacteremia -continue pressors as needed -preliminary culture showed Gram-positive bacteremia, repeat cultures -remove PICC line -echocardiogram -continue vancomycin and meropenem -put midline -Port-A-Cath after 2-3 days of removal of PICC line, IR consult on board -Today discontinued PICC line after achieving peripheral line. Port A cath placement likely tomorrow by surgeon. -1 set of new blood cultures preliminary showing G positive cocci in clusters. Drip Levophed- off 12/31 DVT PPX: Eliquis PUD PPX: Protonix Diet: Cardiac diet, NPO after midnight Goals of care addressed with the patient and daughter for more than 27 minutes: Full code status Care plan updated to daughter via telephone Case discussed with the Dr. Gutierrez, patient and nurse Plan discussed with: Patient, Daughter My Orders My Orders Orders - CHANELLE ALBERT Procedure Category Date Status Time Discontinue Tele MARICHUY 01/03/25 In Process 13:27 Transfer Orders XFER 01/03/25 Transmitted 13:27 Complete Blood Count LAB 01/04/25 Verified 04:00 Comprehensive LAB 01/04/25 Verified Metabolic Panel 04:00 Magnesium LAB 01/04/25 Verified 04:00 Dietary Evaluation Review Comments: Check A1C if high CCHO-60 Cardiac diet Monitor PO intake to meet 75% of her needs Expected Outcomes/Goals: controlled blood sugar, gradual wt loss Date of Service: Jan 03, 2025 Billing Provider: SELMA GUTIERREZ MD Common Visit Codes: [id number] INP/OBS CARE(HIGH) Secondary Visit Codes: [id number] CARE PLAN 30 MINUTES CHANELLE ALBERT Jan 03, 2025 17:14 SELMA GUTIERREZ MD Jan 04, 2025 12:20
--- NOTE | 2025-01-03 18:24 | DVHPN2 ---
Progress Note Date Seen: Jan 03, 2025 Medical Necessity Reason Pt with a Central, PICC or Fol: Yes The following are medically ne: PICC Line Subjective Patient reports: No new complaints Review of Systems: Deferred Objective vital signs Vital Sign Date Time Temp Pulse Resp B/P (MAP) Pulse Ox O2 Delivery O2 Flow Rate FiO2 01/03/25 17:00 98.0 64 19 97/49 (65) 99 98.0 01/03/25 08:00 Room Air* 0 21 Total Intake and Output 01/02/25 01/02/25 01/03/25 15:00 23:00 07:00 Intake Total 50 ml 760 ml 300 ml Output Total 700 ml 250 ml Balance 50 ml 60 ml 50 ml medications Current Medications Medications Dose Ordered Sig/Taran Route Start Time Stop Time Status Last Admin Dose Admin Apixaban 2.5 mg BID PO 12/29/24 22:00 01/03/25 10:19 2.5 MG Aspirin 81 mg DAILY PO 12/30/24 10:00 01/03/25 10:08 81 MG Carbidopa/Levodopa 2 tab HS PO 12/29/24 22:00 01/02/25 22:28 2 TAB Sotalol HCl 40 mg DAILY PO 12/30/24 10:00 01/03/25 10:21 40 MG Tramadol HCl 50 mg Q6HP PRN PO 12/29/24 23:15 01/03/25 10:19 50 MG Vancomycin HCl 0 ml @ 0 mls/hr UD IV 12/30/24 00:45 Ondansetron HCl 4 mg Q4HP PRN IV 12/30/24 00:45 Docusate Sodium 100 mg BIDPRN PRN PO 12/30/24 00:45 Acetaminophen 650 mg Q6HP PRN PO 12/30/24 00:45 Nitroglycerin 0.4 mg Q5MINP PRN SL 12/30/24 00:45 Levothyroxine Sodium 75 mcg DAILY@0600 PO 01/01/25 06:00 01/03/25 05:50 75 MCG Meropenem 50 ml @ 17 mls/hr Q8HR IV 12/31/24 14:00 01/03/25 15:14 17 MLS/HR Mupirocin 1 applic BID EACHNOSTRI 12/31/24 22:00 01/05/25 21:59 01/03/25 10:22 1 APPLIC Betamethasone Dipropion Augmented 1 applic BID TOP 01/01/25 22:00 01/03/25 10:21 1 APPLIC Wound Care/ Dressing Products 1 applic Q12HR TOP 01/02/25 10:00 01/03/25 10:22 1 APPLIC Wound Care/ Dressing Products 1 applic Q12HR TOP 01/01/25 22:00 UNV Pantoprazole Sodium 40 mg DAILY@0600 PO 01/02/25 06:00 01/03/25 05:50 40 MG Bumetanide 1 mg DAILY PO 01/03/25 10:00 01/03/25 10:20 1 MG laboratory and microbiology Laboratory Tests 01/03/25 05:00 Test 01/03/25 05:00 Range/Units Serum Glucose 71 L 74-106 mg/dL Microbiology Date/Time Source Procedure Growth Status 01/01/25 20:09 Blood Blood Culture - Preliminary Resulted 12/30/24 12:20 Nose MRSA Screen - Final Complete Problem List/Assessment/Plan Problem List/Assessment/Plan Acute kidney injury hemodynamically mediated in the setting of hypotension, presumptive volume depletion Chronic kidney disease stage 2 Anemia per patient chronic previous screen showed schistocytes suspect this is secondary to her TAVR sepsis bacteremia due to chronic PICC line History of diastolic heart failure Shock requiring pressors Morbid obese Bed-bound, osteoarthritis of the knees bradycardia Hyponatremia mild recs CHANTAL resolving k replace reduce bumex dose Plan discussed with: Patient Dietary Evaluation Review Comments: Check A1C if high CCHO-60 Cardiac diet Monitor PO intake to meet 75% of her needs Expected Outcomes/Goals: controlled blood sugar, gradual wt loss SOCRATES POZO MD Jan 03, 2025 18:24
[2025-01-04] VITALS (10 sets, daily range): BP systolic 84–129; BP diastolic 39–89; PULSE 64–110; RESP 13–76; TEMP 97.2–98.3; O2SAT 92–100
[2025-01-04] MEDS ORDERED: ONDANSETRON HCL 4 MG/2 ML VIAL ONE (08:11)
[2025-01-04] MEDS ORDERED: GLYCOPYRROLATE 0.2 MG/ML 1ML VIAL ONE (08:11)
[2025-01-04] MEDS ORDERED: LIDOCAINE 1% INJ PF 5ML AMP ONE ×2 (08:11→10:34)
[2025-01-04] MEDS ORDERED: KETAMINE 50mg/ML 1ml syringe ONE (08:11)
[2025-01-04] MEDS ORDERED: PROPOFOL 10 MG/ML 20 ML IV ONE (08:11)
[2025-01-04] MEDS ORDERED: KETOROLAC TROMETH 30 MG/ML 1ML VIAL ONE (08:11)
[2025-01-04] MEDS: LIDOCAINE W/ EPINEPHRINE 1% 20ML VIAL ONE (11:07)
[2025-01-04] MEDS: BUPIVACAINE HCL 0.25% P/F 10 ML VIAL ONE (11:08)
--- NOTE | 2025-01-04 12:08 | DVH ---
EXAM: XY CHEST PORTABLE Indication: CONFIRM NEW PORTACATH PLACEMENT Technique: Single frontal view of the chest was obtained Comparison: XY CHEST PORTABLE on DOS: 12/29/24, XY CHEST PORTABLE on DOS: 04/28/24, XY CHEST PORTABLE on DOS: 04/24/24, XY CHEST PORTABLE on DOS: 10/14/23, XY CHEST PORTABLE on DOS: 09/21/23 FINDINGS: Lines and Tubes: Left central venous catheter tip projects over the proximal superior vena cava. Lungs: Left basilar opacity. No pneumothorax. Cardiomediastinal contours: Unremarkable vascular stent projects over the mediastinum Atherosclerotic vascular calcifications of the thoracic aorta are noted. Bones: No acute osseous abnormality. IMPRESSION: Low lung volumes. Left chest port tip projects over the proximal superior vena cava. Left basilar op acity.
--- NOTE | 2025-01-04 13:18 | DVHPN2 ---
Progress Note - Dictate Date Seen: Jan 04, 2025 Medical Necessity Reason Pt with a Central, PICC or Fol: Yes The following are medically ne: PICC Line Subjective PT WITH HYPOTENSION POSITIVE BLOOD CX STAPH PRODUCTIVE COUGH HYPOXIA SEVERE ANEMIA HX OF BLEEDING DIATHESIS NOW BEING TRANSFUSE PMH; HEMATURIA HX OF ORGANIC HD S/P TAVR HX OF AV STENOSIS HTN HFpEF DIASTOLIC DYSFUNCTION AFIB ON SOTALOL HYPERCOAGULABLE STATE HX OF DVT MORBID OBESITY 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 ANEMIA HYPONATREMIA vital signs Vital Sign Date Time Temp Pulse Resp B/P (MAP) Pulse Ox O2 Delivery O2 Flow Rate FiO2 01/04/25 11:29 Mask 9.0 100 01/04/25 11:29 110 13 100 01/04/25 08:53 98.3 107/49 (68) 98.3 Total Intake and Output 01/03/25 01/03/25 01/04/25 15:00 23:00 07:00 Intake Total 50 ml 50 ml 135 ml Output Total 600 ml Balance 50 ml 50 ml -465 ml medications Current Medications Medications Dose Ordered Sig/Taran Route Start Time Stop Time Status Last Admin Dose Admin Apixaban 2.5 mg BID PO 12/29/24 22:00 01/03/25 23:12 2.5 MG Aspirin 81 mg DAILY PO 12/30/24 10:00 01/03/25 10:08 81 MG Carbidopa/Levodopa 2 tab HS PO 12/29/24 22:00 01/03/25 22:00 2 TAB Sotalol HCl 40 mg DAILY PO 12/30/24 10:00 01/03/25 10:21 40 MG Tramadol HCl 50 mg Q6HP PRN PO 12/29/24 23:15 01/03/25 23:12 50 MG Vancomycin HCl 0 ml @ 0 mls/hr UD IV 12/30/24 00:45 Ondansetron HCl 4 mg Q4HP PRN IV 12/30/24 00:45 Docusate Sodium 100 mg BIDPRN PRN PO 12/30/24 00:45 Acetaminophen 650 mg Q6HP PRN PO 12/30/24 00:45 Nitroglycerin 0.4 mg Q5MINP PRN SL 12/30/24 00:45 Levothyroxine Sodium 75 mcg DAILY@0600 PO 01/01/25 06:00 01/04/25 06:45 75 MCG Mupirocin 1 applic BID EACHNOSTRI 12/31/24 22:00 01/05/25 21:59 01/03/25 22:00 1 APPLIC Betamethasone Dipropion Augmented 1 applic BID TOP 01/01/25 22:00 01/03/25 10:21 1 APPLIC Wound Care/ Dressing Products 1 applic Q12HR TOP 01/02/25 10:00 01/03/25 10:22 1 APPLIC Wound Care/ Dressing Products 1 applic Q12HR TOP 01/01/25 22:00 UNV Pantoprazole Sodium 40 mg DAILY@0600 PO 01/02/25 06:00 01/04/25 06:45 40 MG Bumetanide 1 mg DAILY PO 01/03/25 10:00 01/03/25 10:20 1 MG laboratory and microbiology Laboratory Tests 01/03/25 05:00 Test 01/03/25 05:00 Range/Units Serum Glucose 71 L 74-106 mg/dL Problem List HYPOTENSION POSITIVE BLOOD CX STAPH PRODUCTIVE COUGH HYPOXIA SEVERE ANEMIA HX OF BLEEDING DIATHESIS NOW BEING TRANSFUSE PMH; HEMATURIA HX OF ORGANIC HD S/P TAVR HX OF AV STENOSIS HTN HFpEF DIASTOLIC DYSFUNCTION AFIB ON SOTALOL HYPERCOAGULABLE STATE HX OF DVT MORBID OBESITY 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 ANEMIA HYPONATREMIA Assessment/Plan ABX VANCO MEROPENAM DC PICC LINE POSSIBLE SOURCE OF INFECTION NEW ERNESTINA CATH ONCE BLOOD CX NEGATIVE AND FEVER RESOLVED ANF LEUKOCYTOSIS RESOLVES START PT CURRENT GETTING A ERNESTINA CATH Dietary Evaluation Review Comments: Check A1C if high CCHO-60 Cardiac diet Monitor PO intake to meet 75% of her needs Expected Outcomes/Goals: controlled blood sugar, gradual wt loss Plan discussed with: Patient MONTRELL RANKIN MD Jan 04, 2025 13:18
--- NOTE | 2025-01-04 14:00 | DVHOP ---
DATE OF SURGERY: 01/04/2025 PREOPERATIVE DIAGNOSIS: Poor venous access. POSTOPERATIVE DIAGNOSIS: Poor venous access. SURGEON: Eleazar Leiva MD. ANESTHESIA: Local with IV sedation. ANESTHESIOLOGIST: Artemio Chavis. PROCEDURE: Insertion of left subclavian Port-a-Cath. DESCRIPTION OF PROCEDURE: Under adequate anesthesia with the patient's skin prepped and draped and infiltrated with 0.5% Marcaine and 1% Xylocaine mixture, the left subclavian vein was cannulated by a single puncture. A guidewire was advanced through the localizing needle. At this point, a counterincision was made in the lower portion of the upper chest in order to accommodate the Port-A-Cath infusion chamber. The pocket was developed and irrigated with antibiotic solution. The tubing of the Port-A-Cath was then foreshortened for the patient's anatomy, connected to the Port-A-Cath infusion chamber, and the tubing was tunneled through the subcutaneous tissues from the pocket to the guidewire exit site. At this point, the introducer peel-away sheath was inserted over the guidewire. The guidewire was removed. The tubing of the Port-A-Cath was advanced through the peel-away sheath which was peeled away, and following reaching of the final position of the tubing, the Port-A-Cath infusion chamber was placed into the subcutaneous pocket and profusely irrigated with heparinized saline. The infusion of heparinized saline was prompt and unobstructed. However, attempts at aspirating through this system were unsuccessful, most likely due to collapse of the vein around the tubing. The wounds were irrigated with antibiotic solution again and closed using Monocryl sutures, Dermabond, glue, and Steri-Strips. The patient remained stable throughout the procedure, left the operating room following an accurate needle and sponge count and chest x-ray in the recovery room shows the Port-A-Cath to be in proper position with no evidence of postoperative complication. Eleazar Leiva MD PF/MARYANA/AMI TID: [id number] RECEIPT: [id number]
[2025-01-04] MEDS: ceFAZolin 1GM VL ONE (15:19)
[2025-01-04] MEDS: BACITRACIN TOP OINT 1 UD PKG TOP ONE (15:19)
[2025-01-04] MEDS: HEPARIN 1,000 UNITS/ml 1ML VIAL ONE ×2 (15:19)
[2025-01-04] MEDS: HEPARIN SODIUM (PORCINE) 5000 UNITS/ML 1ML VIAL ONE (15:19)
--- NOTE | 2025-01-04 17:00 | DVHPN2 ---
Progress Note Date Seen: Jan 04, 2025 Medical Necessity Reason Pt with a Central, PICC or Fol: Yes The following are medically ne: PICC Line Subjective Patient reports: No new complaints Objective vital signs Vital Sign Date Time Temp Pulse Resp B/P (MAP) Pulse Ox O2 Delivery O2 Flow Rate FiO2 01/04/25 16:50 97.7 68 19 93/66 (75) 92 97.7 01/04/25 11:39 Nasal Cannula 2.0 100 Total Intake and Output 01/03/25 01/03/25 01/04/25 15:00 23:00 07:00 Intake Total 50 ml 50 ml 135 ml Output Total 600 ml Balance 50 ml 50 ml -465 ml medications Current Medications Medications Dose Ordered Sig/Taran Route Start Time Stop Time Status Last Admin Dose Admin Apixaban 2.5 mg BID PO 12/29/24 22:00 01/03/25 23:12 2.5 MG Aspirin 81 mg DAILY PO 12/30/24 10:00 01/03/25 10:08 81 MG Carbidopa/Levodopa 2 tab HS PO 12/29/24 22:00 01/03/25 22:00 2 TAB Sotalol HCl 40 mg DAILY PO 12/30/24 10:00 01/03/25 10:21 40 MG Tramadol HCl 50 mg Q6HP PRN PO 12/29/24 23:15 01/03/25 23:12 50 MG Vancomycin HCl 0 ml @ 0 mls/hr UD IV 12/30/24 00:45 Ondansetron HCl 4 mg Q4HP PRN IV 12/30/24 00:45 Docusate Sodium 100 mg BIDPRN PRN PO 12/30/24 00:45 Acetaminophen 650 mg Q6HP PRN PO 12/30/24 00:45 Nitroglycerin 0.4 mg Q5MINP PRN SL 12/30/24 00:45 Levothyroxine Sodium 75 mcg DAILY@0600 PO 01/01/25 06:00 01/04/25 06:45 75 MCG Mupirocin 1 applic BID EACHNOSTRI 12/31/24 22:00 01/05/25 21:59 01/03/25 22:00 1 APPLIC Betamethasone Dipropion Augmented 1 applic BID TOP 01/01/25 22:00 01/03/25 10:21 1 APPLIC Wound Care/ Dressing Products 1 applic Q12HR TOP 01/02/25 10:00 01/03/25 10:22 1 APPLIC Wound Care/ Dressing Products 1 applic Q12HR TOP 01/01/25 22:00 UNV Pantoprazole Sodium 40 mg DAILY@0600 PO 01/02/25 06:00 01/04/25 06:45 40 MG Bumetanide 1 mg DAILY PO 01/03/25 10:00 01/03/25 10:20 1 MG laboratory and microbiology Laboratory Tests 01/03/25 05:00 Test 01/03/25 05:00 Range/Units Serum Glucose 71 L 74-106 mg/dL Microbiology Date/Time Source Procedure Growth Status 01/03/25 15:56 Catheter Site Aerobic Culture - Preliminary Resulted 01/01/25 20:09 Blood Blood Culture - Preliminary Resulted Problem List/Assessment/Plan Problem List/Assessment/Plan Acute kidney injury hemodynamically mediated in the setting of hypotension, Chronic kidney disease stage 2 Anemia per patient chronic previous screen showed schistocytes suspect this is secondary to her TAVR sepsis bacteremia due to chronic PICC line History of diastolic heart failure s/p Shock requiring pressors Morbid obese Bed-bound, osteoarthritis of the knees bradycardia Hyponatremia mild recs CHANTAL resolving I will sign off this case please reconsult if needed Plan discussed with: Patient Dietary Evaluation Review Comments: Check A1C if high CCHO-60 Cardiac diet Monitor PO intake to meet 75% of her needs Expected Outcomes/Goals: controlled blood sugar, gradual wt loss SOCRATES POZO MD Jan 04, 2025 17:00
--- NOTE | 2025-01-04 17:51 | DVHPNRES ---
Progress Note Date Seen: Jan 04, 2025 Resident Creating Document: CHANELLE ALBERT RESIDENT Medical Necessity Reason Pt with a Central, PICC or Fol: Yes The following are medically ne: PICC Line Subjective Review of Systems 01/02: Please DC PICC line once access for midline has been gained. We will do Port-A-Cath after 2-3 days of PICC line removal. 01/03: Today discontinued PICC line after achieving peripheral line. Port A cath placement likely tomorrow by surgeon. NPO after midnight. 1 set of new blood cultures preliminary showing G positive cocci in clusters. Patient seen and examined at the bedside. Patient reported improvement in her symptoms since admission, reported no new complaints. Overnight events reviewed. Patient underwent port a cath placement today. Ordered home health for IV antibiotics vancomycin 1 g q.12 for 14 days. Resume diabetic/cardiac diet. Objective vital signs Vital Sign Date Time Temp Pulse Resp B/P (MAP) Pulse Ox O2 Delivery O2 Flow Rate FiO2 01/04/25 16:50 97.7 68 19 93/66 (75) 92 97.7 01/04/25 11:39 Nasal Cannula 2.0 100 Total Intake and Output 01/03/25 01/03/25 01/04/25 14:59 22:59 06:59 Intake Total 50 ml 50 ml 135 ml Output Total 600 ml Balance 50 ml 50 ml -465 ml medications Current Medications Medications Dose Ordered Sig/Taran Route Start Time Stop Time Status Last Admin Dose Admin Apixaban 2.5 mg BID PO 12/29/24 22:00 01/03/25 23:12 2.5 MG Aspirin 81 mg DAILY PO 12/30/24 10:00 01/03/25 10:08 81 MG Carbidopa/Levodopa 2 tab HS PO 12/29/24 22:00 01/03/25 22:00 2 TAB Sotalol HCl 40 mg DAILY PO 12/30/24 10:00 01/03/25 10:21 40 MG Tramadol HCl 50 mg Q6HP PRN PO 12/29/24 23:15 01/03/25 23:12 50 MG Vancomycin HCl 0 ml @ 0 mls/hr UD IV 12/30/24 00:45 Ondansetron HCl 4 mg Q4HP PRN IV 12/30/24 00:45 Docusate Sodium 100 mg BIDPRN PRN PO 12/30/24 00:45 Acetaminophen 650 mg Q6HP PRN PO 12/30/24 00:45 Nitroglycerin 0.4 mg Q5MINP PRN SL 12/30/24 00:45 Levothyroxine Sodium 75 mcg DAILY@0600 PO 01/01/25 06:00 01/04/25 06:45 75 MCG Mupirocin 1 applic BID EACHNOSTRI 12/31/24 22:00 01/05/25 21:59 01/03/25 22:00 1 APPLIC Betamethasone Dipropion Augmented 1 applic BID TOP 01/01/25 22:00 01/03/25 10:21 1 APPLIC Wound Care/ Dressing Products 1 applic Q12HR TOP 01/02/25 10:00 01/03/25 10:22 1 APPLIC Wound Care/ Dressing Products 1 applic Q12HR TOP 01/01/25 22:00 UNV Pantoprazole Sodium 40 mg DAILY@0600 PO 01/02/25 06:00 01/04/25 06:45 40 MG Bumetanide 1 mg DAILY PO 01/03/25 10:00 01/03/25 10:20 1 MG Examination Pt is lying on bed General Appearance: Alert, Oriented X3, Cooperative, Not in acute distress HEENT: Atraumatic, Mucous membranes moist/pink Respiratory: Clear to auscultation, Normal air movement, No added sounds Cardiovascular: Regular rate, Normal S1, Normal S2, No murmurs Abdominal: Active bowel sounds, Soft, no distention, no tenderness Extremities: No edema, Normal pulses, No tenderness/swelling Skin: Scattered purple ecchymosis L& R arms, right posterolateral back skin fold with a large ecchymotic area with a open partial-thickness skin tear, bleeding and buttock scattered with the wounds with a bright red periwound, bleeds Neuro: Normal speech, sensorimotor deficits none Psych/Mental Status: Mental status NL, Mood NL Nurse was there as sales assoc during examination laboratory and microbiology Laboratory Tests 01/03/25 05:00 Test 01/03/25 05:00 Range/Units Serum Glucose 71 L 74-106 mg/dL Microbiology Date/Time Source Procedure Growth Status 01/03/25 15:56 Catheter Site Aerobic Culture - Preliminary Resulted 01/01/25 20:09 Blood Blood Culture - Preliminary Resulted Labs and/or images reviewed: Labs reviewed by me, Image(s) reviewed by me Problem List/Assessment/Plan Problem List/Assessment/Plan [employer] [facility] # Hypovolemic vs septic shock, required pressors # R/o IE- DC PICC line, repeat blood cultures, started vanc and meropenem # G+ bacteremia with a staph capitis # ? Acute on chronic diastolic CHF # Hx of paroxysmal AFib, NSR now and secondary hypercoagulable state # HTN # S/p TAVR # hypomagnesemia-repleting -ICU status downgraded to med surge -elevated BNP -Echocardiogram LVEF 55% with mild TR, MR -continuing sotalol -Lasix 40 mg daily, switched to bumetanide 2 mg p.o. daily -continue Eliquis 2.5 mg p.o. b.i.d. -aspirin 81 mg -initially on Levophed, off since 12/31 -Dr Cifuentes on board -DC PICC line, repeat blood cultures, started vanc and meropenem -status post port a cath placement -social consult for home health for IV antibiotics for 14 days RS GI/Liver # Diarrhea likely from laxative use # Constipation PUD PPX: Protonix 40 mg oral # CHANTAL likely VMN on CKD-improving # HX of nephrolithiasis # [place] kidney -strict I&O was -avoid nephrotoxic agents -monitor labs -nephrology on board Metabolic/Endo # Hyponatremia, hypovolemic-improving -monitor labs for now -avoid rapid correction # Hypokalemia # hypomagnesemia - Repleting - Monitor lab # hypothyroidism -continue levothyroxine 75 mcg MSK/skin # Psoriasis plaques with bleeding -continue Hydrogel along with betamethasone -wound consult # ? Psoriatic arthritis -tramadol -outpatient follow up # restless leg -continue ropinirole and carbidopa levodopa ID # septic shock likely from bacteremia # rule out infective endocarditis # Gram-positive bacteremia -continue pressors as needed -preliminary culture showed Gram-positive bacteremia, repeat cultures -remove PICC line -echocardiogram -continue vancomycin and meropenem -put midline -Port-A-Cath after 2-3 days of removal of PICC line, IR consult on board -Today discontinued PICC line after achieving peripheral line. Port A cath placement likely tomorrow by surgeon. -1 set of new blood cultures preliminary showing G positive cocci in clusters. -status post port a cath placement -social consult for home health for IV antibiotics for 14 days Drip Levophed- off 12/31 DVT PPX: Eliquis PUD PPX: Protonix Diet: Cardiac diet, Goals of care addressed with the patient and daughter for more than 27 minutes: Full code status Care plan updated to daughter via telephone Case discussed with the Dr. Gutierrez, patient and nurse Plan discussed with: Patient, Daughter Dietary Evaluation Review Comments: Check A1C if high CCHO-60 Cardiac diet Monitor PO intake to meet 75% of her needs Expected Outcomes/Goals: controlled blood sugar, gradual wt loss Date of Service: Jan 04, 2025 Billing Provider: SELMA GUTIERREZ MD Common Visit Codes: 88797-[id number] INP/OBS CARE(HIGH) Secondary Visit Codes: 87342-VCKLOJOU CARE PLAN 30 MINUTES CHANELLE ALBERT RESIDENT Jan 04, 2025 17:51 SELMA GUTIERREZ MD Jan 06, 2025 12:19
[2025-01-05] VITALS (7 sets, daily range): BP systolic 91–137; BP diastolic 36–62; PULSE 60–92; RESP 17–18; TEMP 97.2–97.7; O2SAT 93–98
--- NOTE | 2025-01-05 12:20 | DVHPN2 ---
Progress Note - Dictate Date Seen: Jan 04, 2025 Medical Necessity Reason Pt with a Central, PICC or Fol: Yes The following are medically ne: PICC Line Subjective PT WITH HYPOTENSION POSITIVE BLOOD CX STAPH PRODUCTIVE COUGH HYPOXIA SEVERE ANEMIA HX OF BLEEDING DIATHESIS NOW BEING TRANSFUSE PMH; HEMATURIA HX OF ORGANIC HD S/P TAVR HX OF AV STENOSIS HTN HFpEF DIASTOLIC DYSFUNCTION AFIB ON SOTALOL HYPERCOAGULABLE STATE HX OF DVT MORBID OBESITY 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 ANEMIA HYPONATREMIA vital signs Vital Sign Date Time Temp Pulse Resp B/P (MAP) Pulse Ox O2 Delivery O2 Flow Rate FiO2 01/05/25 12:08 97.7 63 18 101/36 (57) 94 97.7 01/05/25 08:00 Room Air* 0 21 Total Intake and Output 01/04/25 01/04/25 01/05/25 15:00 23:00 07:00 Intake Total 100 ml 400 ml Output Total 550 ml Balance 100 ml -150 ml medications Current Medications Medications Dose Ordered Sig/Taran Route Start Time Stop Time Status Last Admin Dose Admin Apixaban 2.5 mg BID PO 12/29/24 22:00 01/05/25 09:36 2.5 MG Aspirin 81 mg DAILY PO 12/30/24 10:00 01/05/25 09:35 81 MG Carbidopa/Levodopa 2 tab HS PO 12/29/24 22:00 01/04/25 23:06 2 TAB Sotalol HCl 40 mg DAILY PO 12/30/24 10:00 01/05/25 09:36 40 MG Tramadol HCl 50 mg Q6HP PRN PO 12/29/24 23:15 01/04/25 23:05 50 MG Vancomycin HCl 0 ml @ 0 mls/hr UD IV 12/30/24 00:45 Ondansetron HCl 4 mg Q4HP PRN IV 12/30/24 00:45 Docusate Sodium 100 mg BIDPRN PRN PO 12/30/24 00:45 Acetaminophen 650 mg Q6HP PRN PO 12/30/24 00:45 Nitroglycerin 0.4 mg Q5MINP PRN SL 12/30/24 00:45 Levothyroxine Sodium 75 mcg DAILY@0600 PO 01/01/25 06:00 01/05/25 06:22 75 MCG Mupirocin 1 applic BID EACHNOSTRI 12/31/24 22:00 01/05/25 21:59 01/05/25 09:36 1 APPLIC Betamethasone Dipropion Augmented 1 applic BID TOP 01/01/25 22:00 01/03/25 10:21 1 APPLIC Wound Care/ Dressing Products 1 applic Q12HR TOP 01/02/25 10:00 01/03/25 10:22 1 APPLIC Wound Care/ Dressing Products 1 applic Q12HR TOP 01/01/25 22:00 UNV Pantoprazole Sodium 40 mg DAILY@0600 PO 01/02/25 06:00 01/05/25 06:22 40 MG Bumetanide 1 mg DAILY PO 01/03/25 10:00 01/05/25 09:35 1 MG laboratory and microbiology Laboratory Tests 01/03/25 05:00 Test 01/03/25 05:00 Range/Units Serum Glucose 71 L 74-106 mg/dL Problem List HYPOTENSION POSITIVE BLOOD CX STAPH PRODUCTIVE COUGH HYPOXIA SEVERE ANEMIA HX OF BLEEDING DIATHESIS NOW BEING TRANSFUSE PMH; HEMATURIA HX OF ORGANIC HD S/P TAVR HX OF AV STENOSIS HTN HFpEF DIASTOLIC DYSFUNCTION AFIB ON SOTALOL HYPERCOAGULABLE STATE HX OF DVT MORBID OBESITY 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 ANEMIA HYPONATREMIA Assessment/Plan ABX VANCO MEROPENAM DC PICC LINE POSSIBLE SOURCE OF INFECTION NEW ERNESTINA CATH ONCE BLOOD CX NEGATIVE AND FEVER RESOLVED ANF LEUKOCYTOSIS RESOLVES START PT CURRENT GETTING A ERNESTINA CATH may dc home HOME IV ABX FOLLOWUP IN 1 WEEK Dietary Evaluation Review Comments: Check A1C if high CCHO-60 Cardiac diet Monitor PO intake to meet 75% of her needs Expected Outcomes/Goals: controlled blood sugar, gradual wt loss Plan discussed with: Patient, Other MONTRELL RANKIN MD Jan 05, 2025 12:20
--- NOTE | 2025-01-05 16:24 | DVHDSRES ---
Discharge Summary Date of Admission Resident Creating Document: CHANELLE ALBERT RESIDENT Dec 30, 2024 at 00:37 Date of Discharge: Jan 05, 2025 Admitting Diagnosis Hypotension Labs/Diagnostic Data: Laboratory Results Test 01/05/25 13:15 01/03/25 05:00 01/02/25 09:18 01/01/25 12:50 Creatinine 0.88 mg/dL (0.550-1.02) Glomerular Filtration Rate Calc 66 mL/min (>90) Random Vancomycin Level 17.3 ug/mL (5-10) White Blood Count 13.5 10^3/uL (4.4-10.8) Red Blood Count 3.92 10^6/uL (4.0-5.20) Hemoglobin 10.9 g/dL (12.2-16.2) Hematocrit 32.3 % (36.0-46.0) Mean Corpuscular Volume 82.4 fL (80.0-100.0) Mean Corpuscular Hemoglobin 27.7 pg (28.0-32.0) Mean Corpuscular Hemoglobin Concent 33.6 g/dL (32.0-36.0) Red Cell Distribution Width 15.2 % (11.8-14.3) Platelet Count 291 10^3/uL (140-450) Mean Platelet Volume 7.6 fL (6.9-10.8) Neutrophils (%) (Auto) % (37.0-80.0) Lymphocytes (%) (Auto) % (10.0-50.0) Monocytes (%) (Auto) % (0.0-12.0) Basophils (%) (Auto) % (0.0-2.0) Neutrophils # (Auto) 10 ^3/uL (1.6-8.6) Lymphocytes # (Auto) 10 ^3/uL (0.4-5.4) Monocytes # (Auto) 10 ^3/uL (0-1.3) Differential Total Cells Counted 100.0 (100) Neutrophils % (Manual) 65 (37.0-80.0) Band Neutrophils % (Manual) 7 Lymphocytes % (Manual) 10 (10.0-50.0) Monocytes % (Manual) 12 (0-12) Eosinophils % (Manual) 5 (0-7) Basophils % (Manual) 0 (0.0-2.0) Metamyelocytes % (manual) 1 Myelocytes % (Manual) 0 Promyelocytes % (Manual) 0 Blast Cells % (Manual) 0 Reactive Lymphocytes 0 Platelet Estimate Adequate Sodium Level 132 mmol/L (136-145) Potassium Level 3.9 mmol/L (3.5-5.1) Chloride Level 95 mmol/L (98-107) Carbon Dioxide Level 27 mmol/L (20-31) Anion Gap 10 (5-15) Blood Urea Nitrogen 33 mg/dL (9-23) BUN/Creatinine Ratio 37.5 (10.0-20.0) Serum Glucose 71 mg/dL (74-106) Calcium Level 9.2 mg/dL (8.7-10.4) Magnesium Level 2.1 mg/dL (1.6-2.6) Total Bilirubin 0.2 mg/dL (0.2-1.0) Aspartate Amino Transferase (AST) 19 U/L (13-40) Alanine Aminotransferase (ALT) < 9 U/L (7-40) Alkaline Phosphatase 80 U/L (46-116) Total Protein 5.3 g/dL (5.7-8.2) Albumin 3.3 g/dL (3.2-4.8) Eosinophils (%) (Auto) 1.9 % (0.0-7.0) Eosinophils # (Auto) 0.2 10 ^3/uL (0-0.8) Basophils # (Auto) 0 10 ^3/uL (0-0.2) Nucleated Red Blood Cells 0.1 % Prothrombin Time 10.9 sec (9.3-11.8) Prothrombin Time INR 1.03 (0.9-1.15) Activated Partial Thromboplast Time 26.9 SEC (24.5-34.5) Test 01/01/25 03:20 12/31/24 19:02 12/30/24 07:50 12/29/24 21:58 Hemoglobin A1c 4.9 % A1C (<5.7) Thyroid Stimulating Hormone (TSH) 0.12 uIU/mL (0.55-4.78) Free Thyroxine (T4) Calculated 1.92 ng/dL (0.89-1.76) Total Triiodothyronine (TT3) 0.69 ng/mL (0.60-1.81) Vancomycin Level Trough 27.2 ug/mL (5-10) Serum Osmolality 279 mOsm/kg (278-298) Urine Color Light yellow (Yellow) Urine Clarity Turbid (Clear) Urine pH 5.5 (5.0-9.0) Urine Specific [place] 1.009 (1.001-1.035) Urine Protein Negative (Negative) Urine Ketones Negative (Negative) Urine Blood Negative /uL (Negative) Urine Nitrite Negative (Negative) Urine Bilirubin Negative (Negative) Urine Urobilinogen Normal mg/dL (Negative) Urine Leukocyte Esterase Trace /uL (Negative) Urine Osmolality 251 mOsm/kg Urine Glucose Normal mg/dL (Normal) Test 12/29/24 20:52 B-Type Natriuretic Peptide 129.83 pg/mL (0-100) Other Laboratory Tests 01/05/25 13:15 01/03/25 05:00 Brief Hx & Hospital Course: Pauline Paz is an 79-year-old bed-bound female with a complex medical history including hypertension, congestive heart failure (CHF), hypothyroidism, paroxysmal atrial fibrillation on Eliquis, chronic kidney disease, and psoriasis. She presented to the emergency department via EMS with generalized weakness, diarrhea, and nausea that began one day prior to admission. EMS reported a systolic blood pressure of 70 mmHg at the scene. The patient attributed her symptoms to recent laxative use for constipation, which led to a large bowel movement followed by dizziness and hypotension. She had been recently started on Bumex and metolazone by her primary care physician, Dr. Cifuentes, and had ongoing issues with electrolyte imbalances, including potassium and sodium. On examination, she had multiple psoriatic plaques with erythema on her arms and buttocks, and a left-sided PICC line that had been in place for seven months due to difficult venous access. She denied fever, chills, shortness of breath, abdominal pain, vomiting, or urinary symptoms. During hospitalization, for hypotension requiring vasopressor support with Levophed and was admitted to the ICU. Blood cultures revealed Gram-positive cocci in clusters, likely originating from the PICC line. Empiric antibiotics with vancomycin and meropenem were initiated. The PICC line was removed after establishing peripheral access, and a Port-A-Cath was placed for long-term IV therapy. Her condition improved significantly, and she was weaned off vasopressors by 12/31. Repeat blood cultures were obtained, and she remained hemodynamically stable. Echocardiogram showed an LVEF of 55% with mild tricuspid and mitral regurgitation. She was continued on sotalol, Eliquis, aspirin, and transitioned from Lasix to oral bumetanide. Electrolyte abnormalities including hypokalemia, hypomagnesemia, and hyponatremia were addressed and monitored. Her chronic hypothyroidism was managed with levothyroxine, and her psoriasis was treated with hydrogel and topical steroids. A wound care consult was obtained for bleeding plaques, and outpatient follow-up was arranged for possible psoriatic arthritis. Renal function showed signs of acute kidney injury on chronic kidney disease, likely volume-mediated, and nephrology was consulted. Strict fluid monitoring and avoidance of nephrotoxic agents were emphasized. GI symptoms were attributed to laxative use, and she was started on Protonix for ulcer prophylaxis. She was also continued on medications for restless leg syndrome. The patient underwent successful Port-A-Cath placement and was discharged in stable condition with home health services arranged for 14 days of IV vancomycin (1 g every 12 hours). She was advised to resume a diabetic/cardiac diet and continue her home medications. Discharge instructions were reviewed with the patient and her daughter, including lifestyle modifications and the importance of follow-up with her primary care provider within one week Pt is lying on bed General Appearance: Alert, Oriented X3, Cooperative, Not in acute distress HEENT: Atraumatic, Mucous membranes moist/pink Respiratory: Clear to auscultation, Normal air movement, No added sounds Cardiovascular: Regular rate, Normal S1, Normal S2, No murmurs Abdominal: Active bowel sounds, Soft, no distention, no tenderness Extremities: No edema, Normal pulses, No tenderness/swelling Skin: Scattered purple ecchymosis L& R arms, right posterolateral back skin fold with a large ecchymotic area with a open partial-thickness skin tear, bleeding and buttock scattered with the wounds with a bright red periwound, bleeds, Port-A-Cath placement on the chest. Neuro: Normal speech, sensorimotor deficits none Psych/Mental Status: Mental status NL, Mood NL Nurse was there as domestic travel consultant during examination Discharge plan discussed with Dr Slaughter. Operations or Procedures ECHO Conclusion LAE XANDER EF >55% MILD TR MILD MR ---- CHEST RADIOGRAPH IMPRESSION: 1. No acute cardiopulmonary disease. Condition at Discharge: Stable Final Diagnosis/Problems List # Hypovolemic vs septic shock, required pressors # Ruled out IE # G+ bacteremia with a staph capitis # ruled out infective endocarditis # ? Acute on chronic diastolic CHF # Hx of paroxysmal AFib, NSR now and secondary hypercoagulable state # HTN # S/p TAVR # hypomagnesemia-repleting # Diarrhea likely from laxative use # Constipation # CHANTAL likely VMN on CKD-improving # HX of nephrolithiasis # Horseshoe kidney # Hyponatremia, hypovolemic-improving # Hypokalemia # hypomagnesemia # hypothyroidism # Psoriasis plaques with bleeding # ? Psoriatic arthritis # restless leg Discharge Disposition: Home with Health Services Discharge Instruct/Medications Diet: Consistent carbohydrate, Cardiac 2g Na,low cholest Activity: No Restrictions, As Tolerated Follow Up/Referral: PCP and Cardio Medications: Per EMR Scheduled Acetaminophen (8 Hour Arthritis Pain Rel), 650 MG PO TID, (Reported) Apixaban Base (Eliquis), 2.5 MG PO BID, (Reported) Apremilast Base (Otezla), 1 TAB PO BID, (Reported) Aspirin (Aspirin 81), 1 TAB PO DAILY, (Reported) Bumetanide (Bumex), 1 TAB PO DAILY, (Reported) Clotrimazole W/ Betamethasone (Clotrimazole/Betamethason 1-0.05 %), 1 CRE EX BID, (Reported) Esomeprazole Magnesium (Esomeprazole Magnesium Dr), 40 MG PO DAILY, (Reported) Levodopa W/Carbidopa (Sinemet), 2 TAB PO HS, (Reported) Levothyroxine Sodium (Levothyroxine Sodium), 1 TAB PO DAILY, (Reported) Linaclotide Base (Linzess), 1 CAP PO DAILY, (Reported) Metolazone (Metolazone), 3 TAB PO QWEEKLY, (Reported) Ondansetron HCl (Ondansetron Hydrochloride), 1 TAB PO Q8HPRN, (Reported) Potassium Chloride (Potassium Chloride ER), 1 TAB PO BID, (Reported) Ropinirole Hydrochloride (Requip), 1 TAB PO HS, (Reported) Sotalol Hcl (Sotalol Hcl), 0.5 TAB PO DAILY, (Reported) Tramadol Hcl (Tramadol Hcl), 1 TAB PO QID, (Reported) Scheduled PRN Albuterol Sulfate (Ventolin Mdi), 2 PUFF IN Q6HR PRN for SHORTNESS OF BREATH, (Reported) Albuterol Sulfate (Albuterol Sulfate), 1 VIAL NEB Q6HR PRN for SHORTNESS OF BREATH, (Reported) Betamethasone Dipropionate (Betamethasone Dipropionat), 1 APPLIC TOP DIRECTED PRN for ECZEMA RASH, (Reported) Fluticasone Propionate (Nasal) (Flonase Allergy Relief), 1 SPR NA BID PRN for ALLERGIES, (Reported) Ondansetron (Zofran), 1 TAB PO TID PRN for NAUSEA OR VOMITING, (Reported) Tramadol HCl (Tramadol Hydrochloride), 1 TAB PO QID PRN for MODERATE PAIN (4-6 PAIN SCALE), (Reported) Miscellaneous Medications Clobetasol Propionate (Clobetasol Propionate), TOP, (Reported) Discontinued Medications Furosemide (Furosemide), 1 TAB PO DAILY, (Reported) Discharge Statement: "Patient was advised to return to the ER or call 911 if any headaches, dizziness, shortness of breath, chest pain, abdominal pain, bleeding, fevers, or worsening of medical condition. Patient was counseled about treatment plan, medications, possible side effects, patientverbalized understanding. All questions were answered to the best of my ability. This discharge took greater then 30 minutes in planning, reviewing documentation, counseling the patient, and discussing with other team members." ASSESSMENT ASSESSMENT Assessment # Hypovolemic vs septic shock, required pressors # R/o IE- DC PICC line, repeat blood cultures, started vanc and meropenem # G+ bacteremia with a staph capitis # ruled out infective endocarditis # ? Acute on chronic diastolic CHF # Hx of paroxysmal AFib, NSR now and secondary hypercoagulable state # HTN # S/p TAVR # hypomagnesemia-repleting # Diarrhea likely from laxative use # Constipation # CHANTAL likely VMN on CKD-improving # HX of nephrolithiasis # Horseshoe kidney # Hyponatremia, hypovolemic-improving # Hypokalemia # hypomagnesemia # hypothyroidism # Psoriasis plaques with bleeding # ? Psoriatic arthritis # restless leg CHANELLE ALBERT RESIDENT Jan 05, 2025 16:24
[2025-01-05] MEDS: VANCOMYCIN 500mg/100mL 100 ML IV ONE (17:59)
--- NOTE | 2025-01-08 13:25 | DVHPN2 ---
Progress Note - Dictate Date Seen: Dec 31, 2024 Medical Necessity Reason Pt with a Central, PICC or Fol: Yes The following are medically ne: PICC Line Subjective PT WITH HYPOTENSION POSITIVE BLOOD CX STAPH PRODUCTIVE COUGH HYPOXIA SEVERE ANEMIA HX OF BLEEDING DIATHESIS NOW BEING TRANSFUSE PMH; HEMATURIA HX OF ORGANIC HD S/P TAVR HX OF AV STENOSIS HTN HFpEF DIASTOLIC DYSFUNCTION AFIB ON SOTALOL HYPERCOAGULABLE STATE HX OF DVT MORBID OBESITY 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 ANEMIA HYPONATREMIA medications Current Medications Medications Dose Ordered Sig/Taran Route Start Time Stop Time Status Last Admin Dose Admin Wound Care/ Dressing Products 1 applic Q12HR TOP 01/01/25 22:00 UNV laboratory and microbiology Laboratory Tests 01/05/25 13:15 01/03/25 05:00 Test 01/03/25 05:00 Range/Units Serum Glucose 71 L 74-106 mg/dL Problem List HYPOTENSION POSITIVE BLOOD CX STAPH PRODUCTIVE COUGH HYPOXIA SEVERE ANEMIA HX OF BLEEDING DIATHESIS NOW BEING TRANSFUSE PMH; HEMATURIA HX OF ORGANIC HD S/P TAVR HX OF AV STENOSIS HTN HFpEF DIASTOLIC DYSFUNCTION AFIB ON SOTALOL HYPERCOAGULABLE STATE HX OF DVT MORBID OBESITY 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 ANEMIA HYPONATREMIA Assessment/Plan ABX VANCO MEROPENAM DC PICC LINE POSSIBLE SOURCE OF INFECTION NEW ERNESTINA CATH ONCE BLOOD CX NEGATIVE AND FEVER RESOLVED ANF LEUKOCYTOSIS RESOLVES START PT CURRENT GETTING A ERNESTINA CATH may dc home HOME IV ABX FOLLOWUP IN 1 WEEK Reviewed lab: MCV, MCH, MCHC are normal. Dietary Evaluation Review Comments: Check A1C if high CCHO-60 Cardiac diet Monitor PO intake to meet 75% of her needs Expected Outcomes/Goals: controlled blood sugar, gradual wt loss Plan discussed with: Patient MONTRELL RANKIN MD Jan 08, 2025 13:25
--- NOTE | 2025-01-09 10:29 | DVHPN2 ---
Progress Note - Dictate Date Seen: Jan 05, 2025 Medical Necessity Reason Pt with a Central, PICC or Fol: Yes The following are medically ne: PICC Line Subjective PT WITH HYPOTENSION POSITIVE BLOOD CX STAPH PRODUCTIVE COUGH HYPOXIA SEVERE ANEMIA HX OF BLEEDING DIATHESIS NOW BEING TRANSFUSE PMH; HEMATURIA HX OF ORGANIC HD S/P TAVR HX OF AV STENOSIS HTN HFpEF DIASTOLIC DYSFUNCTION AFIB ON SOTALOL HYPERCOAGULABLE STATE HX OF DVT MORBID OBESITY 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 ANEMIA HYPONATREMIA medications Current Medications Medications Dose Ordered Sig/Taran Route Start Time Stop Time Status Last Admin Dose Admin Wound Care/ Dressing Products 1 applic Q12HR TOP 01/01/25 22:00 UNV laboratory and microbiology Laboratory Tests 01/05/25 13:15 01/03/25 05:00 Test 01/03/25 05:00 Range/Units Serum Glucose 71 L 74-106 mg/dL Problem List HYPOTENSION POSITIVE BLOOD CX STAPH PRODUCTIVE COUGH HYPOXIA SEVERE ANEMIA HX OF BLEEDING DIATHESIS NOW BEING TRANSFUSE PMH; HEMATURIA HX OF ORGANIC HD S/P TAVR HX OF AV STENOSIS HTN HFpEF DIASTOLIC DYSFUNCTION AFIB ON SOTALOL HYPERCOAGULABLE STATE HX OF DVT MORBID OBESITY 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 ANEMIA HYPONATREMIA Assessment/Plan ABX VANCO MEROPENAM DC PICC LINE POSSIBLE SOURCE OF INFECTION NEW ERNESTINA CATH ONCE BLOOD CX NEGATIVE AND FEVER RESOLVED ANF LEUKOCYTOSIS RESOLVES START PT CURRENT GETTING A ERNESTINA CATH may dc home HOME IV ABX FOLLOWUP IN 1 WEEK Dietary Evaluation Review Comments: Check A1C if high CCHO-60 Cardiac diet Monitor PO intake to meet 75% of her needs Expected Outcomes/Goals: controlled blood sugar, gradual wt loss Plan discussed with: Patient, Other MONTRELL RANKIN MD Jan 09, 2025 10:29
== END 2025-01-05 22:35 | disposition home health service (06) | DRG 871 ==
LOC: EDBD 19:21 → EDUNIT# 19:21 → ER 19:24 → OVERFLOW 12-30 00:37 → ICU WEST 12-30 16:15 → TELE-CENTR 01-01 21:10
PROVIDERS: ADMIT Internal Medicine; ATTEND Internal Medicine
PROC: 02HV33Z Insertion of Infusion Device into Superior Vena Cava, Percutaneous Approach (ICD-10-PCS; 2025-01-04)
PROC: 0JH63WZ Insertion of Totally Implantable Vascular Access Device into Chest Subcutaneous Tissue and Fascia, Percutaneous Approach (ICD-10-PCS; principal; 2025-01-04 10:23)
DX: A41.1 Sepsis due to other specified staphylococcus (principal); I50.33 Acute on chronic diastolic (congestive) heart failure; N17.0 Acute kidney failure with tubular necrosis; R65.21 Severe sepsis with septic shock; R57.1 Hypovolemic shock; Z68.42 Body mass index [BMI] 45.0-49.9, adult; E87.1 Hypo-osmolality and hyponatremia; I13.0 Hypertensive heart and chronic kidney disease with heart failure and stage 1 through stage 4 chronic kidney disease, or unspecified chronic kidney disease; N13.6 Pyonephrosis; D68.59 Other primary thrombophilia; E03.9 Hypothyroidism, unspecified; E66.01 Morbid (severe) obesity due to excess calories; K52.9 Noninfective gastroenteritis and colitis, unspecified; G25.81 Restless legs syndrome; D64.9 Anemia, unspecified; I48.0 Paroxysmal atrial fibrillation; E11.22 Type 2 diabetes mellitus with diabetic chronic kidney disease; N18.2 Chronic kidney disease, stage 2 (mild); M06.9 Rheumatoid arthritis, unspecified; L40.0 Psoriasis vulgaris; R09.02 Hypoxemia; M17.0 Bilateral primary osteoarthritis of knee; E83.42 Hypomagnesemia; E87.6 Hypokalemia; K59.00 Constipation, unspecified; Z74.01 Bed confinement status; Q63.1 Lobulated, fused and horseshoe kidney; Z95.2 Presence of prosthetic heart valve; Z87.442 Personal history of urinary calculi; Z86.718 Personal history of other venous thrombosis and embolism; Z82.5 Family history of asthma and other chronic lower respiratory diseases; Z82.49 Family history of ischemic heart disease and other diseases of the circulatory system; Z79.899 Other long term (current) drug therapy; Z79.82 Long term (current) use of aspirin; Z79.4 Long term (current) use of insulin; Z79.01 Long term (current) use of anticoagulants; Z88.0 Allergy status to penicillin; Z88.8 Allergy status to other drugs, medicaments and biological substances; Z88.2 Allergy status to sulfonamides
CPT/HCPCS: 36415; 71045; 80048; 80053; 80202; 81003; 82565; 83036; 83735; 83880; 83930; 83935; 84132; 84439; 84443; 84480; 85007; 85025; 85027; 85610; 85730; 86850; 86900; 86901; 87040; 87070; 87077; 87081; 87186; 87205; 93005; 93306; 96360; 99291; G0378; J0690; J1100; J1885; J2003; J2185; J2405; J2704; J3480; J3490

== ENCOUNTER 2025-01-15 13:17 | Outpatient (CLI) | payer MEDICARE, OTHER, MEDICAID ==
[2025-01-15 12:00] VITALS: BP 90/48; PULSE 80; RESP 20; O2SAT 97
[2025-01-15 13:09] VITALS: BP 88/51; PULSE 80; RESP 20; O2SAT 99
[~2025-01-15 13:17] MED LIST changes: -ASPI-325 PO; -CLOT1PAK; -CLOTLOT TOP; -FURO1TAB33 PO; -FURO40TA4 PO; -ROPI1TAB78 PO
== END 2025-01-15 17:00 | disposition home or self-care (01) ==
LOC: CHF HDHVI 13:17
PROVIDERS: ATTEND Internal Medicine Cardiovascular Disease
DX: I95.9 Hypotension, unspecified (principal); R56.9 Unspecified convulsions
CPT/HCPCS: G0463

== ENCOUNTER 2025-01-15 13:28 | Inpatient (IN) | payer MEDICARE, OTHER, MEDICAID ==
[~2025-01-15] VITALS: Ht 170.2 cm; Wt 105.6 kg
--- NOTE | 2025-01-15 13:42 | ECG ---
[facility] Test Date: 2025-01-15 Test Time: 13:35:08 Pat Name: TANESHA FONSECA Department: [facility] ED Patient ID: [id number] Room: 0204T Gender: F Oil [employer]her: MONA : 1945 Requested By: DAVID ARREDONDO Order Number: [id number] Reading MD: Jamal Overton Measurements Intervals [place] Rate: 75 P: 0 ND: 0 QRS: -32 QRSD: 91 T: 9 QT: 439 QTc: 491 Interpretive Statements Atrial fibrillation Probable left ventricular hypertrophy Inferior infarct, old Anterior Q waves, possibly due to LVH Electronically Signed On 01-17-2025 18:42:18 PDT by Jamal Overton Please click the below link to view image of tracing.
--- NOTE | 2025-01-15 13:51 | ED.PDOC ---
HPI Comments This is a 79 year old female ELIOT presenting to the ED with chief complaint of syncope. EMS reports that the patient suffered a syncopal episode while at Dr. Cifuentes's office today. EMS relays that the episode lasted 30 seconds and she did not hit her head. Patient states she does not remember passing out, only waking up. Patient's daughter over phone stated that the patient has also been experiencing lightheadedness and nausea today. Daughter states patient was put on Vancomycin on 01/04 through a port she had placed the same day for sepsis. Patient denies any chest pain, SOB, dizziness, N/V, abdominal pain, or fever. Chief Complaint: Syncope Time Seen by MD: 13:48 Primary Care Provider: UNKNOWN Reviewed Notes: Nurses Notes, Front Maker Lockstitch Notes, Medications, Allergies Allergies: Coded Allergies: Penicillins (Unverified Allergy, Severe, 03/16/15) Sulfa Antibiotics (Unverified Allergy, Severe, 03/16/15) Morphine (Verified Allergy, Intermediate, ALTERED, 01/31/18) PER PATIENT AND HER DAUGHTER SHE CAN NOT HAVE Ceftriaxone (Verified Allergy, Unknown, 01/31/18) COUGH AND CHILLS Home Meds Reported Medications Clotrimazole W/ Betamethasone (Clotrimazole/Betamethason 1-0.05 %) 1 Cre Cre, 1 CRE EX BID for 120 Days, #60 01/03/25 Metolazone (Metolazone) 5 Mg Tab, 3 TAB PO QWEEKLY for 84 Days, #36 01/03/25 Linaclotide Base (LINZESS) 290 Mcg Cap, 1 CAP PO DAILY for 30 Days, #30 01/03/25 Bumetanide (Bumex) 2 Mg Tab, 1 TAB PO DAILY for 90 Days, #90 12/31/24 Tramadol Hcl (Tramadol Hcl) 50 Mg Tab, 1 TAB PO QID 04/25/24 Clobetasol Propionate (Clobetasol Propionate) 0.05 % Deepika, TOP 04/25/24 Ondansetron HCl (Ondansetron Hydrochloride) 4 Mg Tab, 1 TAB PO Q8HPRN 04/25/24 Sotalol Hcl (Sotalol Hcl) 80 Mg Tab, 0.5 TAB PO DAILY, #60 TAB 5 Refills 04/25/24 Apixaban Base (ELIQUIS) 2.5 Mg Tab, 2.5 MG PO BID, TAB 11/17/23 Esomeprazole Magnesium (Esomeprazole Magnesium Dr) 40 Mg Cap, 40 MG PO DAILY, CAP 11/03/23 Acetaminophen (8 Hour Arthritis Pain Rel) 650 Mg Tab, 650 MG PO TID for ARTHRITIS 01/23/22 Betamethasone Dipropionate (Betamethasone Dipropionat) 0.05 % Cre, 1 APPLIC TOP DIRECTED PRN for ECZEMA RASH for 30 Days, #30 01/23/22 Levodopa W/Carbidopa (Sinemet) 10 /100 Tab, 2 TAB PO HS for TREMORS 01/23/22 Albuterol Sulfate (Albuterol Sulfate) 0.083 % Neb, 1 VIAL NEB Q6HR PRN for SHORTNESS OF BREATH 02/05/20 Fluticasone Propionate (Nasal) (Flonase Allergy Relief) 50 Mcg/Act Spr, 1 SPR NA BID PRN for ALLERGIES 02/05/20 Ondansetron (Zofran) 4 Mg Tab, 1 TAB PO TID PRN for NAUSEA OR VOMITING 02/05/20 Aspirin (ASPIRIN 81) 81 Mg Tab, 1 TAB PO DAILY for HEART ATTACK PREVENTION 02/05/20 Potassium Chloride (Potassium Chloride ER) 20 Meq Tab, 1 TAB PO BID for SUPPLEMENT for 90 Days, #180 02/05/20 Apremilast Base (Otezla) 30 Mg Tab, 1 TAB PO BID for ARTHRITIS 03/28/19 Tramadol HCl (Tramadol Hydrochloride) 50 Mg Tab, 1 TAB PO QID PRN for MODERATE PAIN (4-6 PAIN SCALE) 10/30/18 Albuterol Sulfate (VENTOLIN MDI) 90 Mcg Ih, 2 PUFF IN Q6HR PRN for SHORTNESS OF BREATH 04/21/18 Levothyroxine Sodium (Levothyroxine Sodium) 75 Mcg Tab, 1 TAB PO DAILY for HYPOTHYROIDISM, 5 Refills 03/17/15 Ropinirole Hydrochloride (Requip) 1 Mg Tab, 1 TAB PO HS for RESTLESS LEGS for 90 Days, #90 03/17/15 Information Source: Patient, Relative (Child), Emergency Med Personnel Mode of Arrival: EMS Severity: Moderate Timing: Hours Duration: Since onset Prehospital treatment: None Associated Signs and Symptoms: Syncope Past Medical History PAST MEDICAL HISTORY: AFIB, Anemia, Arthritis, CHF, CKF, DM, HTN, Kidney Stones, Thyroid Surgical History: Tonsillectomy GIS CONSULTANT History: No Pertinent GIS CONSULTANT History Family History Family History: Reviewed,noncontributory to illness, No family hx of Cancer, No family hx of DM, No family hx of HTN, No family hx ofKidney christine, No family hx of Liver christine, No family hx of Lung christine, No family hx of Stroke, Family hx of heart christine Social History Smoker: Non-Smoker Alcohol: Denies ETOH Use Drugs: Denies Drug Use Lives In: Home, Fpc Constitutional: denies: chills, diaphoresis, fatigue, fever, malaise, sweats, weakness, others EENTM: denies: blurred vision, double vision, ear bleeding, ear discharge, ear drainage, ear pain, ear ringing, eye pain, eye redness, hearing loss, mouth pain, mouth swelling, nasal discharge, nose bleeding, nose congestion, nose pain, photophobia, tearing, throat pain, throat swelling, voice changes, others Respiratory: denies: cough, hemoptysis, orthopnea, SOB at rest, shortness of breath, SOB with excertion, stridor, wheezing, others Cardiovascular: reports: lightheadedness, syncope; denies: chest pain, dizzy spells, diaphoresis, Dyspnea on exertion, edema, irregular heart beat, left arm pain, palpitations, PND, others Gastrointestinal: reports: nausea; denies: abdomen distended, abdominal pain, blood streaked bowels, constipated, diarrhea, dysphagia, difficulty swallowing, hematemesis, melena, poor appetite, poor fluid intake, rectal bleeding, rectal pain, vomiting, others Genitourinary: denies: abnormal vagina bleeding, burning, dyspareunia, dysuria, flank pain, frequency, hematuria, incontinence, pain, , vagina discharge, urgency, others Neurological: denies: dizziness, fainting, headache, left sided numbness, left sided weakness, numbness, paresthesia, pre-existing deficit, right sided numbness, right sided weakness, seizure, speech problems, tingling, tremors, weakness, others Musculoskeletal: denies: back pain, gout, joint pain, joint swelling, muscle pain, muscle stiffness, neck pain, others Integumetry: denies: bruises, change in color, change in hair/nails, dryness, laceration, lesions, lumps, rash, wounds, others Allergic/Immunocompromised: denies: Difficulty Healing, Frequent Infections, Hives, Itching, others Hematologic/Lymphatic: denies: anemia, blood clots, easy bleeding, easy bruising, swollen glands, others Endocrine: denies: excessive hunger, excessive sweating, excessive thirst, excessive urination, flushing, intolerance to cold, intolerance to heat, unexplained weight gain, unexplained weight loss, others Psychiatric: denies: anxiety, bipolar disorder, depression, hopeless, panic disorder, schizophrenia, sleepless, suicidal, others All Other Systems: Reviewed and Negative Physical Exam General Appearance: Moderate Distress, Obese HEENT: Normal ENT Inspection, Pharynx Normal, TMs Normal Neck: Full Range of Motion, Non-Tender, Normal, Normal Inspection Respiratory: Chest Non-Tender, Lungs Clear, No Accessory Muscle Use, No Respiratory Distress, Normal Breath Sounds Cardiovascular: No Edema, No JVD, No Murmur, No Gallop, Normal Peripheral Pulses, Regular Rate/Rhythm Breast Exam: Deferred Gastrointestinal: No Organomegaly, Non Tender, No Pulsatile Mass, Normal Bowel Sounds, Soft Genitalia: Deferred Pelvic: Deferred Rectal: Deferred Extremities: No calf tenderness, Pedal edema Musculoskeletal : Apperance: Normal Neurologic: Alert, Normal Mood, No Sensory Deficits Cerebellar Function: NOT DONE Reflexes: NOT DONE Skin: Dry, Normal Color, Warm Peripheral Pulses: 3+ Radial (R), 3+ Radial (L) Lymphatic: No Adenopathy EKG EKG : Pulse Rate (adult): 75 Cardiac Rhythm: Afib Was a procedure done? Was a procedure done?: No CP Differential Dx Differential Diagnosis: A-fib, A-Flutter, Angina, Anxiety / Panic Attack, Atrial Dysrhythmia, Electrolyte Disorder X-Ray, Labs, Meds, VS Vital Signs Date Time Temp Pulse Resp B/P (MAP) Pulse Ox O2 Delivery O2 Flow Rate FiO2 01/15/25 13:51 75 01/15/25 13:40 98.0 70 20 132/103 99 98.0 01/15/25 13:35 75 Patient alert. Possible syncopal episode. Mentating well. Vitals stable. Possibly will need MRI. Establish intravenous access. Was given fluids. The daughter states that she has been having problem with her blood pressure. Explained to the patient. Continue monitoring. Time of 1ST Reevaluation: 14:48 Reevaluation 1ST: Unchanged Patient Education/Counseling: Diagnosis, Treatment Family Education/Counseling: No Family Present SEPSIS Sepsis Screen Date sepsis recognized/suspect: Jan 15, 2025 Time Sepsis recognized/suspect: 1334 Recent Procedure: No On Antibiotic Therapy: No Respiratory Rate >20: No Heart Rate >90: No Temp<36 C (96.8 F) or >38.3 C: No SBP <90 or MAP <65 mmHG: No New Acute Mental Status Change: No Is the patient on CPAP, BIPAP,: No Physician Orders Troponin-I Hs (01/15/25 13:47) Complete Blood Count (01/15/25 13:47) Basic Metabolic Panel (01/15/25 13:47) Troponin-I Hs (01/15/25 14:47) Troponin-I Hs (01/15/25 16:47) Vital Signs Date Time Temp Pulse Resp B/P (MAP) Pulse Ox O2 Delivery O2 Flow Rate FiO2 01/15/25 13:51 75 01/15/25 13:40 98.0 70 20 132/103 99 98.0 01/15/25 13:35 75 Departure 1 Departure Time of Disposition: 15:38 Impression: Primary Impression: Syncopal episodes Qualified Codes: R55 - Syncope and collapse Disposition: 09 ADMITTED INPATIENT Admit to: Med Surg Condition: Guarded Critical Care Note Critical Care Time?: No Stability Stability form required: No Heart Score Heart Score: Heart Score Response (Comments) Value History Highly Suspicious 2 EKG Repolarization Disturb 1 Age >65 2 Risk Factors >3 or Hx ASHD 2 Troponin Normal limit 0 Total 7 I personally scribed for DAVID ARREDONDO MD ([email or web address]) on 01/15/25 at 13:51. Electronically submitted by Randall Armstrong ([email or web address]). DAVID ARREDONDO MD Jan 15, 2025 13:51
--- NOTE | 2025-01-15 14:20 | ECG ---
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
--- NOTE | 2025-01-15 16:14 | DVH ---
CT HEAD WITHOUT CONTRAST Indication: syncope EXAM DATE: 01/15/2025 03:41 PM COMPARISON: None TECHNIQUE: CT of the head without intravenous contrast. RADIATION DOSE: CTDIvol: 61 mGy, DLP: 1314 mGy*cm FINDINGS: There is no intracranial hemorrhage. There is no extra-axial fluid, mass, mass effect or midline shif t. The ventricles are midline and normal in size. Basilar cisterns are patent. Mild to moderate periv entricular and subcortical white matter chronic microvascular ischemic changes. Mild global cerebral volume loss. The paranasal sinuses and mastoids are well-pneumatized. Imaged portion of the orbits are unremarkabl e. IMPRESSION: No intracranial hemorrhage or mass effect. [id number] chronic microvascular ischemic changes. Mild global cerebral volume loss.
[2025-01-15 17:34] LABS: Hematocrit 26.6 % (36.0-46.0); Hemoglobin 8.8 g/dL (12.2-16.2); Mean Corpuscular Hemoglobin 26.7 pg (28.0-32.0); Mean Corpuscular Volume 80.6 fL (80.0-100.0); Nucleated Red Blood Cells % 0.1 %
[2025-01-15 17:42] LABS: Anion Gap 10 (5-15)
[2025-01-15 17:43] LABS: Calcium 9.1 mg/dL (8.7-10.4)
[2025-01-15 17:47] LABS: Glucose 89 mg/dL (74-106)
[2025-01-15 17:48] LABS: BUN/Creatinine Ratio 93.5 (10.0-20.0)
[2025-01-15 17:50] LABS: Blood Urea Nitrogen 87 mg/dL (9-23); Carbon Dioxide 34 mmol/L (20-31); Chloride 88 mmol/L (98-107); Potassium 2.4 mmol/L (3.5-5.1); Sodium 132 mmol/L (136-145)
[2025-01-16] VITALS (9 sets, daily range): BP systolic 112–153; BP diastolic 48–72; PULSE 3–86; RESP 17–18; TEMP 97.5–98.1; O2SAT 69–100
[2025-01-16 00:18] LABS: Alanine Aminotransferase 9 U/L (7-40); Albumin 3.4 g/dL (3.2-4.8); Alkaline Phosphatase 78 U/L (46-116); Anion Gap 11 (5-15); BUN/Creatinine Ratio 82.0 (10.0-20.0); Blood Urea Nitrogen 73 mg/dL (9-23); Calcium 9.2 mg/dL (8.7-10.4); Carbon Dioxide 31 mmol/L (20-31); Chloride 90 mmol/L (98-107); Glucose 120 mg/dL (74-106); Sodium 132 mmol/L (136-145); Total Protein 5.6 g/dL (5.7-8.2)
[2025-01-16 00:20] LABS: Potassium 2.3 mmol/L (3.5-5.1)
[2025-01-16 00:23] LABS: Bilirubin, Total 0.3 mg/dL (0.2-1.0)
[2025-01-16] MEDS ORDERED: VANCOMYCIN PER PHARMACY 0 MG IV SCH (01:30)
[2025-01-16] MEDS ORDERED: LEVALBUTEROL HCL 1.25 MG/3 ML NEB NEB PRN (01:45)
[2025-01-16] MEDS ORDERED: FLUTICASONE PROP NASAL SPR 0.05 % (50MCG) 16GM PRN (01:45)
[2025-01-16] MEDS ORDERED: BETAMETHASONE DIPROP0.05% TOPICAL CREAM 15GM TOP PRN (01:45)
[2025-01-16 02:34] LABS: Total Iron Binding Capacity 318.0 ug/dL (250-425)
[2025-01-16 02:51] LABS: Iron 15.0 ug/dL (50-170)
--- NOTE | 2025-01-16 03:04 | DVH ---
Clinical History: afib high chance of dvt Comparison: US LT UPPER DVT on DOS: 10/15/23, US BILAT LOWER DVT on DOS: 10/14/23 Technique: Duplex Doppler evaluation of the deep venous system of the right and left lower extremity from the co mmon femoral vein to the popliteal vein including color Doppler and spectral/pulsed waveform analysis was performed. Findings: The common femoral vein demonstrates appropriate compressibility and waveform variability. There is compressibility/patency of the great saphenous vein at the proximal thigh. The femoral vein demonstrates appropriate compressibility and waveform variability. The deep femoral vein demonstrates appropriate compressibility and waveform variability. The popliteal vein demonstrates appropriate compressibility and waveform variability. There is normal compressibility at the tibioperoneal trunk. Impression: 1. No right or left deep venous thrombosis. 2. If clinical concern/symptoms persist or worsen, short-interval follow-up study is suggested.
--- NOTE | 2025-01-16 03:32 | DVHHPRES ---
History of Present Illness Resident Creating Document: LAQUITA VACA RESIDENT History of Present Illness 79 Year old female with past medical history of iron-deficiency anemia, recurrent renal stone, sacral ulcer, ESBL UTI, hiatal hernia, horseshoe kidney, ovarian cyst, atrial fibrillation, heart failure with preserved ejection fraction, parkinsonism sent into the hospital complains of a single episode of syncope. 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 The daughter states that the "moved to and fro like a seizure". Patient regained consciousness after a minute. She denies biting her tongue. PMHx:iron-deficiency anemia, recurrent renal stone, sacral ulcer, ESBL UTI, hiatal hernia, horseshoe kidney, ovarian cyst, atrial fibrillation, heart failure with preserved ejection fraction, parkinsonism PSHx: Right knee surgery for ligament tear Family history: Prostatic cancer in brother, brain cancer in sister Social history: Denies smoking alcohol or illicit drugs Home medication: Sotalol, levothyroxine, Eliquis, Bumex, aspirin , metolazone, betamethasone cream Allergic history: Morphine, penicillin, TMP SMX, ceftriaxone Review of Systems Review of Systems General: Patient complains of generalized pain all over the body HEENT: No headaches, visiual changes, hearing loss, tinnitus, nasal congestion and discharge, and sore throat. Cardiovascular: Denies chest pain, palpitations, dyspnea on exertion, orthopnea, or claudication. Respiratory: No cough, and wheezing. Gastrointestinal: Denies nausea, vomiting, dysphagia, odynophagia, heartburn, abdominal pain, flatulence, bloating, diarrhea, constipation, change in stool, or blood in stool. Genitourinary: No dysuria, hematuria, discharge, frequency, urgency, nocturia, incontinence, and urinary retention. Endocrine: No heat or cold intolerance, polydipsia, polyuria, and polyphagia. Neurological: No dizziness, extremity weakness and numbness, tremors, gait disturbance, seizures, and memory impairment. Psychiatric: Denies depression, anxiety,or insomnia. Musculoskeletal: Denies neck pain, stiffness and swelling, back pain, muscle weakness, joint pain, stiffness, swelling, or limited range of motion. Skin: No rashes, itching, skin lesion, changes in hair, nail, skin texture and breast. Hematologic/Lymphatic: Denies easy bruising, bleeding tendencies, or lymph node enlargement. Allergies: Coded Allergies: Penicillins (Unverified Allergy, Severe, 03/16/15) Sulfa Antibiotics (Unverified Allergy, Severe, 03/16/15) Morphine (Verified Allergy, Intermediate, ALTERED, 01/31/18) PER PATIENT AND HER DAUGHTER SHE CAN NOT HAVE Ceftriaxone (Verified Allergy, Unknown, 01/31/18) COUGH AND CHILLS Medications Current Medications Medications Dose Ordered Sig/Taran Route Start Time Stop Time Status Last Admin Dose Admin Pantoprazole Sodium 40 mg BID IV 01/16/25 10:00 Vancomycin HCl 0 ml @ 0 mls/hr UD IV 01/16/25 01:30 UNV Meropenem 50 ml @ 17 mls/hr Q8H IV 01/16/25 10:00 Nystatin 1 applic BID TOP 01/16/25 10:00 Potassium Chloride 100 ml @ 50 mls/hr Q2H IV 01/16/25 01:30 01/16/25 07:29 Apixaban 2.5 mg BID PO 01/16/25 10:00 Betamethasone Dipropion Augmented 1 applic UD PRN TOP 01/16/25 01:45 Betamethasone/ Clotrimazole 1 applic BID TOP 01/16/25 10:00 Fluticasone Propionate 1 SPRAY BID PRN NA 01/16/25 01:45 Carbidopa/Levodopa 2 tab HS PO 01/16/25 22:00 Tramadol HCl 50 mg QID PRN PO 01/16/25 01:45 Levothyroxine Sodium 75 mcg QAM@0600 PO 01/16/25 06:00 Vancomycin HCl 250 ml @ 166.667 mls/hr Q2H IV 01/16/25 01:45 01/16/25 05:14 Levalbuterol HCl 0.625 mg Q6HWA PRN NEB 01/16/25 01:45 Exam Vital Signs Vital Signs Date Time Temp Pulse Resp B/P (MAP) Pulse Ox O2 Delivery O2 Flow Rate FiO2 01/16/25 03:05 98.0 77 18 118/51 98 2.0 28 98.0 Exam General Appearance: Alert, Oriented X3, Cooperative, No acute distress, Port-A-Cath present in chest HEENT: Atraumatic, PERRLA, EOMI, Mucous membrane moist/pink Respiratory: Clear to auscultation, Normal air movement Cardiovascular: Regular rate, Normal S1, Normal S2, No murmurs, no chest wall tenderness, Abdominal: Normal bowel sounds, Soft, No tenderness, No hepatospenomegaly, No masses Extremities: No clubbing, No cyanosis, No edema, Normal pulses, edema of bilateral upper and lower limb Skin: Skin breakdown and thickening present, sacral ulcer present Neuro: Normal gait, Normal speech, Strength at 5/5 X4 ext, Normal tone, Sensation intact, Cranial nerves 3-12 NL, Reflexes 2+ Psych/Mental Status: Mental status NL, Mood NL Labs/Xrays Labs Test 01/15/25 21:04 01/15/25 17:10 Range/Units D-Dimer, Quantitative 0.48 0.0-0.49 mg/L FEU Sodium Level 132 L 136-145 mmol/L Potassium Level 2.3 *L 3.5-5.1 mmol/L Chloride Level 90 L 98-107 mmol/L Carbon Dioxide Level 31 20-31 mmol/L Anion Gap 11 5-15 Blood Urea Nitrogen 73 #H 9-23 mg/dL Creatinine 0.89 0.550-1.02 mg/dL Glomerular Filtration Rate Calc 65 >90 mL/min BUN/Creatinine Ratio 82.0 H 10.0-20.0 Serum Glucose 120 H 74-106 mg/dL Calcium Level 9.2 8.7-10.4 mg/dL Magnesium Level 1.5 L 1.6-2.6 mg/dL Iron Level 15 L 50-170 ug/dL Total Iron Binding Capacity 318 250-425 ug/dL Percent Iron Saturation 4.7 L 15-50 % Ferritin 18.4 10-291 ng/mL Total Bilirubin 0.3 0.2-1.0 mg/dL Aspartate Amino Transferase (AST) 16 13-40 U/L Alanine Aminotransferase (ALT) 9 7-40 U/L Alkaline Phosphatase 78 46-116 U/L Troponin I High Sensitivity 14 </=34 ng/L B-Type Natriuretic Peptide 116.65 0-100 pg/mL Total Protein 5.6 L 5.7-8.2 g/dL Albumin 3.4 3.2-4.8 g/dL Thyroid Stimulating Hormone (TSH) 0.22 L 0.55-4.78 uIU/mL White Blood Count 16.5 H 4.4-10.8 10^3/uL Red Blood Count 3.31 L 4.0-5.20 10^6/uL Hemoglobin 8.8 L 12.2-16.2 g/dL Hematocrit 26.6 L 36.0-46.0 % Mean Corpuscular Volume 80.6 80.0-100.0 fL Mean Corpuscular Hemoglobin 26.7 L 28.0-32.0 pg Mean Corpuscular Hemoglobin Concent 33.1 32.0-36.0 g/dL Red Cell Distribution Width 15.8 H 11.8-14.3 % Platelet Count 319 140-450 10^3/uL Mean Platelet Volume 7.5 6.9-10.8 fL Neutrophils (%) (Auto) 83.0 H 37.0-80.0 % Lymphocytes (%) (Auto) 8.8 L 10.0-50.0 % Monocytes (%) (Auto) 7.3 0.0-12.0 % Eosinophils (%) (Auto) 0.7 0.0-7.0 % Basophils (%) (Auto) 0.2 0.0-2.0 % Neutrophils # (Auto) 13.7 H 1.6-8.6 10 ^3/uL Lymphocytes # (Auto) 1.4 0.4-5.4 10 ^3/uL Monocytes # (Auto) 1.2 0-1.3 10 ^3/uL Eosinophils # (Auto) 0.1 0-0.8 10 ^3/uL Basophils # (Auto) 0 0-0.2 10 ^3/uL Nucleated Red Blood Cells 0.1 % Lactic Acid Level 0.8 0.4-2.0 mmol/L SEPSIS Sepsis Screen Date sepsis recognized/suspect: Jan 15, 2025 Time Sepsis recognized/suspect: 1334 Recent Procedure: No On Antibiotic Therapy: No Respiratory Rate >20: No Heart Rate >90: No Temp<36 C (96.8 F) or >38.3 C: No SBP <90 or MAP <65 mmHG: No New Acute Mental Status Change: No Is the patient on CPAP, BIPAP,: No Physician Orders Ok To Access Kary-Cath (01/15/25 20:59) Admit (01/15/25 21:49) Allergies (01/15/25 21:49) Code Status (01/15/25 21:49) Fall Risk Precautions In Place QSHIFT (01/15/25 21:49) Complete Blood Count (01/16/25 04:00) Comprehensive Metabolic Panel (01/16/25 04:00) Cardiac Diet-2gna,Lofat,Lochol (01/16/25 Breakfast) Condition: Fair (01/15/25 21:49) Stat Ekg For Chest Pain (01/15/25 21:49) Stool Occult Blood (01/16/25 01:05) Pantoprazole (Protonix) (01/16/25 10:00) Blood Culture (01/16/25 01:05) Urine Bacterial Culture (01/16/25 01:05) Urinalysis (01/16/25 01:05) Transfer Orders (01/16/25 01:19) Vancomycin Per Pharmacy (01/16/25 01:30) Meropenem 1gm Ivpb (Merrem 1gm/ Ns) (01/16/25 10:00) Echo 2d Mode Cardiac Dop (01/16/25 01:23) * Cardiology Consult (01/16/25 01:23) Nystatin Powder (Mycostatin Powder) (01/16/25 10:00) Orthostatic Vital Signs (01/16/25 01:23) Bilat Lower Dvt (01/16/25 01:23) Communication Order (01/16/25 01:23) Fall Precautions Initiated (01/16/25 01:23) Pt Request For Service (01/16/25 01:23) * Wound Consult (01/16/25 ) Wound Culture W/ Gs (01/16/25 01:23) Potassium Chl 20meq/100ml (01/16/25 01:30) Apixaban (Eliquis) (01/16/25 10:00) Betamethasone 0.05% Topical Cr (Diproson (01/16/25 01:45) Lotrisone Topical Cream (Lotrisone) (01/16/25 10:00) Fluticasone Nasal [place] (Flonase [place]) (01/16/25 01:45) Carbidopa W Levodopa 10/100mg (Sinemet 1 (01/16/25 22:00) Tramadol Hcl (Ultram) (01/16/25 01:45) Levothyroxine Tablet (Synthroid Tablet) (01/16/25 06:00) Levalbuterol Hcl (Xopenex Medneb) (01/16/25 01:45) Vancomycin 1gm/250ml Kit (01/16/25 01:45) Carotid Duplx W Color Dop (01/16/25 01:41) Chest Xray 1 View (01/16/25 02:03) Vital Signs Date Time Temp Pulse Resp B/P (MAP) Pulse Ox O2 Delivery O2 Flow Rate FiO2 01/16/25 03:05 98.0 77 18 118/51 98 2.0 28 98.0 01/16/25 01:35 77 118/51 (73) 98 Laboratory Tests Test 01/15/25 17:10 Lactic Acid Level 0.8 mmol/L (0.4-2.0) White Blood Count 16.5 10^3/uL (4.4-10.8) H Assessment/Plan Assessment/Plan #Syncopal episode, to rule out arrhythmia due to electrolyte abnormalities #Neutrophilic leukocytosis-pending blood culture, urine culture, vancomycin, rachele openem #Normocytic anemia-follow CBC #Severe hypokalemia-potassium chloride rider, follow potassium levels #Stage 2 Sacral ulcer, present on admission-Wound consult, Wound culture #Atrial fibrillation-Eliquis, cardiac consult #Class 2 Obesity-Cardiac diet #Parkinsonism-carbidopa/levodopa #H/o hypothyroidism-follow TSH # H/O Pseudomonas aeruginosa UTI # H/O Infected Port-A-Cath # H/O Hypothyroidism-follow TSH levels # H/O iron-deficiency anemia-iron studies # H/O Renal stone # H/O hiatal hernia # H/O ESBL UTI Barriers to discharge: Medical management in progress. Case discussed with Dr. Blevins Code status: Full code. Complex patient care discussion needed total 31 minutes Plan discussed with: Patient My Orders Orders - LAQUITA VACA RESIDENT Procedure Category Date Status Time Admit ADMIT 01/15/25 Transmitted 21:49 Allergies MAR[place]UY 01/15/25 In Process 21:49 Code Status CODE 01/15/25 Transmitted 21:49 Fall Risk Precautions [place]UY 01/15/[address] 21:49 Complete Blood Count LAB 01/16/25 Logged 04:00 Comprehensive LAB 01/16/25 Logged Metabolic Panel 04:00 Cardiac DIET 01/16/25 Transmitted Diet-2gna,Lofat,Lochol Breakfast Condition: Fair [place]UY 01/15/25 In Process 21:49 Stat Ekg For Chest [place]UY 01/15/25 In Process Pain 21:49 Date of Service: Jan 19, 2025 Billing Provider: NIRAJ BLEVINS MD Common Visit Codes: [id number] INP/OBS CARE (HIGH) Secondary Visit Codes: [id number] CARE PLAN 30 MINUTES LAQUITA VACA RESIDENT Jan 16, 2025 03:30
--- NOTE | 2025-01-16 03:39 | DVH ---
CHEST RADIOGRAPH Indication: rule out thoracic anomaly Technique: 1 view Comparison: XY CHEST PORTABLE on DOS: 01/04/25, XY CHEST PORTABLE on DOS: 12/29/24, XY CHEST PORTABLE on DOS: 04/28/24, XY CHEST PORTABLE on DOS: 04/24/24, XY CHEST PORTABLE on DOS: 10/14/23 FINDINGS: Lines and Tubes: Unchanged left chest port. Lungs/Pleura: unchanged, mildly enlarged heart size. Aortic valve replacement and atherosclerosis.. Cardiomediastinum: Unremarkable. Other: No acute osseous abnormality. IMPRESSION: 1. No acute cardiopulmonary abnormality or significant change from prior exam.
[2025-01-16] MEDS: PANTOPRAZOLE 40 MG/10 ML VIAL INJ IV ONE (04:24)
[2025-01-16] MEDS: POTASSIUM CHL 20MEQ/100ML 100 ML IV SCH ×3 (04:26→11:34)
[2025-01-16] MEDS: LEVOTHYROXINE SODIUM 25 MCG TAB PO SCH (06:36)
[2025-01-16] MEDS: MEROPENEM 1GM IVPB 50 ML IV ONE (06:41)
[2025-01-16] MEDS: VANCOMYCIN 1GM/250ML KIT 250 ML IV SCH (08:32)
--- NOTE | 2025-01-16 08:32 | DVH ---
CLINICAL HISTORY: rule out carotid stenosis. Indication for recent CT head exam was syncope. TECHNIQUE: Duplex carotid Doppler ultrasound was performed. Grayscale, color-flow, and spectral wavef orm analysis was performed. COMPARISON: None FINDINGS: There is moderate calcified plaque seen on barkley scale imaging in the carotid bifurcations and proxima l ICAs bilaterally. There is no significant elevation of the peak systolic velocity. There is no s ignificant spectral broadening. Color doppler examination demonstrates no evidence for significant t urbulent flow. Findings correspond to the less than 50% stenosis category. Antegrade flow is noted in both vertebral arteries. EXAMINATION DATA: RIGHT PSV (cm/s) EDV (cm/s) ICA 73 16 CCA 72 ECA 53 ICA/CCA Ratio: 1.0 Vertebral Flow: antegrade LEFT PSV (cm/s) EDV (cm/s) ICA 108 23 CCA 76 ECA 57 ICA/CCA Ratio: 1.4 Vertebral Flow: antegrade IMPRESSION: 1. Findings consistent with the less than 50% carotid stenosis category bilaterally. 2. Antegrade flow of the vertebral arteries.
[2025-01-16] MEDS: PANTOPRAZOLE 40 MG/10 ML VIAL INJ IV SCH (09:46)
[2025-01-16] MEDS: MEROPENEM 1GM IVPB 50 ML IV SCH (09:46)
[2025-01-16] MEDS: ENOXAPARIN SOD 100 MG/1 ML SYRINGE SC SCH (09:49)
[2025-01-16] MEDS: NYSTATIN TOPICAL POWDER 15GM TOP SCH (10:00)
[2025-01-16] MEDS: CLOTRIMAZOLE W/ BETAMETH TOPICAL CR 15 GM TUBE TOP SCH (10:00)
[2025-01-16] MEDS ORDERED: APIXABAN 2.5 MG TAB PO SCH (10:00)
[2025-01-16 11:33] LABS: Hemoglobin 9.1 g/dL (12.2-16.2); Nucleated Red Blood Cells % 0.1 %
[2025-01-16 11:37] LABS: Hematocrit 27.8 % (36.0-46.0); Mean Corpuscular Hemoglobin 26.7 pg (28.0-32.0); Mean Corpuscular Volume 81.7 fL (80.0-100.0)
[2025-01-16 11:43] LABS: Alanine Aminotransferase 12 U/L (7-40); Albumin 3.5 g/dL (3.2-4.8); Alkaline Phosphatase 75 U/L (46-116); Anion Gap 10 (5-15); BUN/Creatinine Ratio 89.2 (10.0-20.0); Calcium 9.0 mg/dL (8.7-10.4)
[2025-01-16 11:44] LABS: Bilirubin, Total 0.3 mg/dL (0.2-1.0)
[2025-01-16 11:52] LABS: Blood Urea Nitrogen 74 mg/dL (9-23); Carbon Dioxide 34 mmol/L (20-31); Chloride 90 mmol/L (98-107); Glucose 168 mg/dL (74-106); Sodium 134 mmol/L (136-145); Total Protein 5.4 g/dL (5.7-8.2)
[2025-01-16 11:55] LABS: Potassium 2.4 mmol/L (3.5-5.1)
[2025-01-16 12:34] LABS: Urine Protein, UAD Negative (Negative)
[2025-01-16 12:34] LABS: Free T3 1.82 pg/mL (2.3-4.2)
[2025-01-16 12:35] LABS: Free T4 (Free Thyroxine) 2.37 ng/dL (0.89-1.76)
--- NOTE | 2025-01-16 13:45 | DVHPN2 ---
Progress Note - Dictate Date Seen: Jan 16, 2025 Medical Necessity Reason Pt with a Central, PICC or Fol: Yes The following are medically ne: Hook Catheter Subjective PT WAS BEING SEEN IN HOSPITAL WHEN SHE BECAME UNRESPONSIVE BLOOD SUGAR 166 SHE WAS MILDLY HYPOTENSIVE HAD LEFT SIGHT ARM MOVEMENT LASTED ABOUT 10 MINUTES TOTAL/ NO CLEAR POST ICTAL PERIOD PRESENTATION CONSISTENT WITH METABOLIC SYNDROME/ INFECTION ESPECIALLY WITH HER RECENT ADMISSION FOR SEPSIS/ BACTEREMIA RECENT HX OF HYPOTENSION POSITIVE BLOOD CX STAPH PRODUCTIVE COUGH HYPOXIA SEVERE ANEMIA HX OF BLEEDING DIATHESIS NOW BEING TRANSFUSE PMH; HEMATURIA HX OF ORGANIC HD S/P TAVR HX OF AV STENOSIS HTN HFpEF DIASTOLIC DYSFUNCTION AFIB ON SOTALOL HYPERCOAGULABLE STATE HX OF DVT MORBID OBESITY 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 ANEMIA HYPONATREMIA ABX VANCO MEROPENAM DC PICC LINE POSSIBLE SOURCE OF INFECTION NEW ERNESTINA CATH ONCE BLOOD CX NEGATIVE AND FEVER RESOLVED ANF LEUKOCYTOSIS RESOLVES START PT CURRENT GETTING A ERNESTINA CATH may dc home HOME IV ABX FOLLOWUP IN 1 WEEK vital signs Vital Sign Date Time Temp Pulse Resp B/P (MAP) Pulse Ox O2 Delivery O2 Flow Rate FiO2 01/16/25 10:00 97 Room Air 0.0 01/16/25 10:00 21 01/16/25 09:00 97.5 75 18 135/72 (93) 97.5 Total Intake and Output 01/15/25 01/15/25 01/16/25 15:00 23:00 07:00 Intake Total 0 ml Balance 0 ml medications Current Medications Medications Dose Ordered Sig/Taran Route Start Time Stop Time Status Last Admin Dose Admin Pantoprazole Sodium 40 mg BID IV 01/16/25 10:00 01/16/25 09:46 40 MG Vancomycin HCl 0 ml @ 0 mls/hr UD IV 01/16/25 01:30 Meropenem 50 ml @ 17 mls/hr Q8H IV 01/16/25 10:00 01/16/25 09:46 17 MLS/HR Nystatin 1 applic BID TOP 01/16/25 10:00 Betamethasone Dipropion Augmented 1 applic UD PRN TOP 01/16/25 01:45 Betamethasone/ Clotrimazole 1 applic BID TOP 01/16/25 10:00 Fluticasone Propionate 1 SPRAY BID PRN NA 01/16/25 01:45 Carbidopa/Levodopa 2 tab HS PO 01/16/25 22:00 Tramadol HCl 50 mg QID PRN PO 01/16/25 01:45 01/16/25 12:19 50 MG Levothyroxine Sodium 75 mcg QAM@0600 PO 01/16/25 06:00 01/16/25 06:36 75 MCG Levalbuterol HCl 0.625 mg Q6HWA PRN NEB 01/16/25 01:45 Enoxaparin Sodium 100 mg Q12HR SC 01/16/25 10:00 01/16/25 09:49 100 MG Potassium Chloride 100 ml @ 50 mls/hr Q2H IV 01/16/25 11:00 01/16/25 14:59 01/16/25 11:34 50 MLS/HR laboratory and microbiology Laboratory Tests 01/16/25 10:44 Test 01/16/25 10:44 Range/Units Serum Glucose 168 H 74-106 mg/dL Problem List PT WAS BEING SEEN IN HOSPITAL WHEN SHE BECAME UNRESPONSIVE BLOOD SUGAR 166 SHE WAS MILDLY HYPOTENSIVE HAD LEFT SIGHT ARM MOVEMENT LASTED ABOUT 10 MINUTES TOTAL/ NO CLEAR POST ICTAL PERIOD PRESENTATION CONSISTENT WITH METABOLIC SYNDROME/ INFECTION ESPECIALLY WITH HER RECENT ADMISSION FOR SEPSIS/ BACTEREMIA RECENT HX OF HYPOTENSION POSITIVE BLOOD CX STAPH PRODUCTIVE COUGH HYPOXIA SEVERE ANEMIA HX OF BLEEDING DIATHESIS NOW BEING TRANSFUSE PMH; HEMATURIA HX OF ORGANIC HD S/P TAVR HX OF AV STENOSIS HTN HFpEF DIASTOLIC DYSFUNCTION AFIB ON SOTALOL HYPERCOAGULABLE STATE HX OF DVT MORBID OBESITY 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 ANEMIA HYPONATREMIA HYPOKALEMIA LEUKOCYTOSIS Assessment/Plan ABX VANCO MEROPENAM NEW ERNESTINA CATH ONCE BLOOD CX NEGATIVE AND FEVER RESOLVED ANF LEUKOCYTOSIS RESOLVES START PT BLOOD CX UCX Plan discussed with: Patient Critical Care Time(min): 35 MONTRELL RANKIN MD Jan 16, 2025 13:45
--- NOTE | 2025-01-16 15:04 | DVHPNRES ---
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 PMHx:iron-deficiency anemia, recurrent renal stone, sacral ulcer, MDR Pseudomona UTI, hiatal hernia, horseshoe kidney, ovarian cyst, atrial fibrillation, heart failure with preserved ejection fraction, parkinsonism PSHx: Right knee surgery for ligament tear Family history: Prostatic cancer in brother, brain cancer in sister Social history: Denies smoking alcohol or illicit drugs Home medication: Sotalol, levothyroxine, Eliquis, Bumex, aspirin , metolazone, betamethasone cream Allergic history: Morphine, penicillin, TMP SMX, ceftriaxone She is seen today at bedside, no new syncope episodes, no chest pain, patient is complaining about dysuria, her main issue is the severe hypokalemia that is being replaced Objective vital signs Vital Sign Date Time Temp Pulse Resp B/P (MAP) Pulse Ox O2 Delivery O2 Flow Rate FiO2 01/16/25 10:00 97 Room Air 0.0 01/16/25 10:00 21 01/16/25 09:00 97.5 75 18 135/72 (93) 97.5 Total Intake and Output 01/15/25 01/15/25 01/16/25 15:00 23:00 07:00 Intake Total 0 ml Balance 0 ml medications Current Medications Medications Dose Ordered Sig/Taran Route Start Time Stop Time Status Last Admin Dose Admin Pantoprazole Sodium 40 mg BID IV 01/16/25 10:00 01/16/25 09:46 40 MG Vancomycin HCl 0 ml @ 0 mls/hr UD IV 01/16/25 01:30 Meropenem 50 ml @ 17 mls/hr Q8H IV 01/16/25 10:00 01/16/25 09:46 17 MLS/HR Nystatin 1 applic BID TOP 01/16/25 10:00 Betamethasone Dipropion Augmented 1 applic UD PRN TOP 01/16/25 01:45 Betamethasone/ Clotrimazole 1 applic BID TOP 01/16/25 10:00 Fluticasone Propionate 1 SPRAY BID PRN NA 01/16/25 01:45 Carbidopa/Levodopa 2 tab HS PO 01/16/25 22:00 Tramadol HCl 50 mg QID PRN PO 01/16/25 01:45 01/16/25 12:19 50 MG Levalbuterol HCl 0.625 mg Q6HWA PRN NEB 01/16/25 01:45 Enoxaparin Sodium 100 mg Q12HR SC 01/16/25 10:00 01/16/25 09:49 100 MG Vancomycin HCl 250 ml @ 200 mls/hr Q16H IV 01/17/25 05:00 Levothyroxine Sodium 50 mcg QAM@0600 PO 01/17/25 06:00 UNV Examination General Appearance: Alert, Oriented X3, Cooperative, No acute distress, Port-A-Cath present in chest HEENT: Atraumatic, PERRLA, EOMI, Mucous membrane moist/pink Respiratory: Clear to auscultation, Normal air movement Cardiovascular: Regular rate, Normal S1, Normal S2, No murmurs, no chest wall tenderness, Abdominal: Normal bowel sounds, Soft, No tenderness, No hepatospenomegaly, No masses Extremities: No clubbing, No cyanosis, No edema, Normal pulses, edema of bilateral upper and lower limb Skin: Skin breakdown and thickening present, sacral ulcer present Neuro: Normal gait, Normal speech, Strength at 5/5 X4 ext, Normal tone, Sensation intact, Cranial nerves 3-12 NL, Reflexes 2+ Psych/Mental Status: Mental status NL, Mood NL laboratory and microbiology Laboratory Tests 01/16/25 10:44 Test 01/16/25 10:44 Range/Units Serum Glucose 168 H 74-106 mg/dL Problem List/Assessment/Plan Problem List/Assessment/Plan #Syncope, possible due to electrolyte derangement/arrhythmic? #Severe Hypokalemia #Hypomagnesemia #Ratk-he-eyidrhzf chronic microvascular ischemic changes. #Mild global cerebral volume loss #Stroke ruled out #Atrial fibrillation #s/p TAVR #Sepsis due to possible complicated UTI #Rule out bacteremia #H/o UTI : Pseudomona MDR #H/o multiple episodes of bacteremia due to staph #Iron deficiency anemia #Sacral ulcers #Chronic heart failure with diastolic dysfunction, stable #H/o hypothyroidism Cardiac diet Continue telemetry Aggressive K+ replacement: 3 bags given, f/u bmp 10 pm Mg+ replacement Meropenem 1g q8h: pending new cultures (blood, urine and wound) Vancomycin per pharmacy Enoxaparin 100 mg BID Levodopa/ Carbidopa 2 tab hs Pending wound consult Normal carotid doppler Cardiology Dr Cifuentes on board Last ECHO: LAE, XANDER,EF >55%, MILD TR, MILD MR Full code Case discussed with Dr Ravin Tony senior Resident: Margarita Sky, agree with progress note Plan discussed with: Patient, Other (rn) My Orders My Orders Orders - MARCELINA FLORES RESIDENT Procedure Category Date Status Time Mrsa Screen LIA 01/16/25 In Process 11:23 Cleanse Wound With Ns MARICHUY 01/16/25 In Process 14:50 * Dietary Consult CONS 01/16/25 Transmitted 14:56 Levothyroxine Tablet PHA 01/17/25 Logged (Synthroid Tablet) 06:00 Basic Metabolic Panel LAB 01/16/25 Logged 22:00 Magnesium LAB 01/16/25 Logged 22:00 Date of Service: Jan 16, 2025 Billing Provider: SHERRILL PACHECO MD Common Visit Codes: [id number] INP/OBS CARE(HIGH) MARCELINA FLORES RESIDENT Jan 16, 2025 15:04 MARGARITA SKY RESIDENT Jan 17, 2025 00:35 SHERRILL PACHECO MD Jan 23, 2025 21:17
[2025-01-16] MEDS: MAGNESIUM SULFATE 1GM/100ML 200 ML IV ONE (16:19)
[2025-01-16] MEDS: MAGNESIUM SULFATE 1GM/100ML 100 ML IV SCH (16:29)
[2025-01-16 22:30] LABS: Anion Gap 8 (5-15); Calcium 8.9 mg/dL (8.7-10.4)
[2025-01-16 22:31] LABS: Carbon Dioxide 32 mmol/L (20-31); Chloride 91 mmol/L (98-107); Potassium 3.0 mmol/L (3.5-5.1); Sodium 131 mmol/L (136-145)
[2025-01-16 22:35] LABS: BUN/Creatinine Ratio 65.2 (10.0-20.0); Magnesium 2.2 mg/dL (1.6-2.6)
[2025-01-16 22:41] LABS: Blood Urea Nitrogen 60 mg/dL (9-23); Glucose 121 mg/dL (74-106)
[2025-01-16] MEDS: CARBIDOPA W LEVODOPA 10/100mg TABLET PO SCH (22:49)
[2025-01-17] VITALS (8 sets, daily range): BP systolic 66–104; BP diastolic 33–80; PULSE 61–94; RESP 16–18; TEMP 97.4–97.8; O2SAT 95–100
[2025-01-17] MEDS: POTASSIUM CHL 20MEQ/100ML 100 ML IV SCH (00:41)
[2025-01-17] MEDS: VANCOMYCIN 1.25GM/250ML 250 ML IV SCH (05:17)
[2025-01-17] MEDS: LEVOTHYROXINE SODIUM 25 MCG TAB PO SCH (06:19)
[2025-01-17 06:39] LABS: Nucleated Red Blood Cells % 0.1 %
[2025-01-17 06:44] LABS: Hematocrit 25.2 % (36.0-46.0); Hemoglobin 8.5 g/dL (12.2-16.2); Mean Corpuscular Hemoglobin 27.1 pg (28.0-32.0); Mean Corpuscular Volume 80.9 fL (80.0-100.0)
[2025-01-17 06:53] LABS: Calcium 8.8 mg/dL (8.7-10.4); Carbon Dioxide 31 mmol/L (20-31); Potassium 3.7 mmol/L (3.5-5.1)
[2025-01-17 06:54] LABS: Anion Gap 8 (5-15); Chloride 92 mmol/L (98-107); Sodium 131 mmol/L (136-145)
[2025-01-17] MEDS: MEROPENEM 1GM IVPB 50 ML IV SCH (06:54)
[2025-01-17 06:57] LABS: BUN/Creatinine Ratio 65.1 (10.0-20.0); Glucose 101 mg/dL (74-106)
[2025-01-17 06:59] LABS: Blood Urea Nitrogen 56 mg/dL (9-23)
[2025-01-17] MEDS: SOTALOL HCL 80 MG TAB PO SCH (11:58)
[2025-01-17] MEDS: SODIUM CHLORIDE 0.9% 500 ML IV ONE (13:00)
[2025-01-17 13:10] LABS: Hematocrit 24.0 % (36.0-46.0); Hemoglobin 7.9 g/dL (12.2-16.2)
--- NOTE | 2025-01-17 13:36 | DVHPN2 ---
Progress Note - Dictate Date Seen: Jan 17, 2025 Medical Necessity Reason Pt with a Central, PICC or Fol: Yes The following are medically ne: Hook Catheter Subjective PT WAS BEING SEEN IN HOSPITAL WHEN SHE BECAME UNRESPONSIVE BLOOD SUGAR 166 SHE WAS MILDLY HYPOTENSIVE HAD LEFT SIGHT ARM MOVEMENT LASTED ABOUT 10 MINUTES TOTAL/ NO CLEAR POST ICTAL PERIOD PRESENTATION CONSISTENT WITH METABOLIC SYNDROME/ INFECTION ESPECIALLY WITH HER RECENT ADMISSION FOR SEPSIS/ BACTEREMIA RECENT HX OF HYPOTENSION POSITIVE BLOOD CX STAPH PRODUCTIVE COUGH HYPOXIA SEVERE ANEMIA HX OF BLEEDING DIATHESIS NOW BEING TRANSFUSE PMH; HEMATURIA HX OF ORGANIC HD S/P TAVR HX OF AV STENOSIS HTN HFpEF DIASTOLIC DYSFUNCTION AFIB ON SOTALOL HYPERCOAGULABLE STATE HX OF DVT MORBID OBESITY 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 ANEMIA HYPONATREMIA ABX VANCO MEROPENAM DC PICC LINE POSSIBLE SOURCE OF INFECTION NEW ERNESTINA CATH ONCE BLOOD CX NEGATIVE AND FEVER RESOLVED ANF LEUKOCYTOSIS RESOLVES START PT CURRENT GETTING A ERNESTINA CATH may dc home HOME IV ABX FOLLOWUP IN 1 WEEK vital signs Vital Sign Date Time Temp Pulse Resp B/P (MAP) Pulse Ox O2 Delivery O2 Flow Rate FiO2 01/17/25 10:00 100 Room Air* 0 21 01/17/25 09:00 97.6 65 16 91/49 (63) 97.6 Total Intake and Output 01/16/25 01/16/25 01/17/25 15:00 23:00 07:00 Intake Total 750 ml 1000 ml 473 ml Balance 750 ml 1000 ml 473 ml medications Current Medications Medications Dose Ordered Sig/Taran Route Start Time Stop Time Status Last Admin Dose Admin Pantoprazole Sodium 40 mg BID IV 01/16/25 10:00 01/17/25 10:01 40 MG Vancomycin HCl 0 ml @ 0 mls/hr UD IV 01/16/25 01:30 Carbidopa/Levodopa 2 tab HS PO 01/16/25 22:00 01/16/25 22:49 2 TAB Tramadol HCl 50 mg QID PRN PO 01/16/25 01:45 01/16/25 22:48 50 MG Vancomycin HCl 250 ml @ 200 mls/hr Q16H IV 01/17/25 05:00 01/17/25 05:17 200 MLS/HR Levothyroxine Sodium 50 mcg QAM@0600 PO 01/17/25 06:00 01/17/25 06:19 50 MCG Meropenem 50 ml @ 17 mls/hr Q8H IV 01/17/25 06:00 01/17/25 06:54 17 MLS/HR Sotalol HCl 40 mg DAILY PO 01/17/25 11:58 Furosemide 20 mg DAILY IV 01/18/25 10:00 laboratory and microbiology Laboratory Tests 01/17/25 12:45 01/17/25 05:15 Test 01/17/25 05:15 Range/Units Serum Glucose 101 74-106 mg/dL Problem List PT WAS BEING SEEN IN HOSPITAL WHEN SHE BECAME UNRESPONSIVE BLOOD SUGAR 166 SHE WAS MILDLY HYPOTENSIVE HAD LEFT SIGHT ARM MOVEMENT LASTED ABOUT 10 MINUTES TOTAL/ NO CLEAR POST ICTAL PERIOD PRESENTATION CONSISTENT WITH METABOLIC SYNDROME/ INFECTION ESPECIALLY WITH HER RECENT ADMISSION FOR SEPSIS/ BACTEREMIA RECENT HX OF HYPOTENSION POSITIVE BLOOD CX STAPH PRODUCTIVE COUGH HYPOXIA SEVERE ANEMIA HX OF BLEEDING DIATHESIS NOW BEING TRANSFUSE PMH; HEMATURIA HX OF ORGANIC HD S/P TAVR HX OF AV STENOSIS HTN HFpEF DIASTOLIC DYSFUNCTION AFIB ON SOTALOL HYPERCOAGULABLE STATE HX OF DVT MORBID OBESITY 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 ANEMIA HYPONATREMIA HYPOKALEMIA LEUKOCYTOSIS Assessment/Plan ABX VANCO MEROPENAM NEW ERNESTINA CATH ONCE BLOOD CX NEGATIVE AND FEVER RESOLVED ANF LEUKOCYTOSIS RESOLVES START PT BLOOD CX UCX Dietary Evaluation Review Comments: Check A1C Monitor PO intakes, offer Devin BID Iron supplementation Encourage PT and promoting physical activties Expected Outcomes/Goals: gradual wt loss and healed wound Plan discussed with: Patient Critical Care Time(min): 35 MONTRELL RANKIN MD Jan 17, 2025 13:35
--- NOTE | 2025-01-17 17:13 | DVHPNRES ---
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 PMHx:iron-deficiency anemia, recurrent renal stone, sacral ulcer, MDR Pseudomona UTI, hiatal hernia, horseshoe kidney, ovarian cyst, atrial fibrillation, heart failure with preserved ejection fraction, parkinsonism PSHx: Right knee surgery for ligament tear Family history: Prostatic cancer in brother, brain cancer in sister Social history: Denies smoking alcohol or illicit drugs Home medication: Sotalol, levothyroxine, Eliquis, Bumex, aspirin , metolazone, betamethasone cream Allergic history: Morphine, penicillin, TMP SMX, ceftriaxone She is seen today at bedside, no new syncope episodes, patient complains of pain in the buttock ulcers. She requested help with bedside commode. She denies any chest pain, shortness of breath, fever or any other complaints. Objective vital signs Vital Sign Date Time Temp Pulse Resp B/P (MAP) Pulse Ox O2 Delivery O2 Flow Rate FiO2 01/17/25 16:45 97.4 88 16 104/80 (88) 95 97.4 01/17/25 10:00 Room Air* 0 21 Total Intake and Output 01/16/25 01/16/25 01/17/25 15:00 23:00 07:00 Intake Total 750 ml 1000 ml 473 ml Balance 750 ml 1000 ml 473 ml medications Current Medications Medications Dose Ordered Sig/Taran Route Start Time Stop Time Status Last Admin Dose Admin Pantoprazole Sodium 40 mg BID IV 01/16/25 10:00 01/17/25 10:01 40 MG Vancomycin HCl 0 ml @ 0 mls/hr UD IV 01/16/25 01:30 Carbidopa/Levodopa 2 tab HS PO 01/16/25 22:00 01/16/25 22:49 2 TAB Tramadol HCl 50 mg QID PRN PO 01/16/25 01:45 01/16/25 22:48 50 MG Vancomycin HCl 250 ml @ 200 mls/hr Q16H IV 01/17/25 05:00 01/17/25 05:17 200 MLS/HR Levothyroxine Sodium 50 mcg QAM@0600 PO 01/17/25 06:00 01/17/25 06:19 50 MCG Meropenem 50 ml @ 17 mls/hr Q8H IV 01/17/25 06:00 01/17/25 14:29 17 MLS/HR Sotalol HCl 40 mg DAILY PO 01/17/25 11:58 Furosemide 20 mg DAILY IV 01/18/25 10:00 Examination General Appearance: Alert, Oriented X3, Cooperative, No acute distress, Port-A-Cath present in chest HEENT: Atraumatic, PERRLA, EOMI, Mucous membrane moist/pink Respiratory: Clear to auscultation, Normal air movement Cardiovascular: Regular rate, Normal S1, Normal S2, No murmurs, no chest wall tenderness, Abdominal: Normal bowel sounds, Soft, No tenderness, No hepatospenomegaly, No masses Extremities: Psoriatic arthritis in multiple fingers, No clubbing, No cyanosis, No edema, Normal pulses, edema of bilateral upper and lower limb Skin: Sacral ulcer 3x4 cm present, surrounding area covered with ecchymosis. Neuro: Normal gait, Normal speech, Strength at 5/5 X4 ext, Normal tone, Sensation intact, Cranial nerves 3-12 NL, Reflexes 2+ Psych/Mental Status: Mental status NL, Mood NL laboratory and microbiology laboratory and microbiology Laboratory Tests 01/17/25 12:45 01/17/25 05:15 Test 01/17/25 05:15 Range/Units Serum Glucose 101 74-106 mg/dL Microbiology Date/Time Source Procedure Growth Status 01/16/25 12:16 Voided Urine Urine Culture - Preliminary Resulted 01/16/25 10:11 Nose MRSA Screen - Final Complete 01/15/25 20:04 Blood Blood Culture - Preliminary NO GROWTH AFTER 24 HOURS OF INCUBATION. Resulted Problem List/Assessment/Plan Problem List/Assessment/Plan #Syncope, possible due to electrolyte derangement/arrhythmic? #Severe Hypokalemia #Hypomagnesemia #Ymhy-ft-updkgdyo chronic microvascular ischemic changes. #Mild global cerebral volume loss #Stroke ruled out #Atrial fibrillation with some episodes of RVR #s/p TAVR #Sepsis due to possible complicated UTI #Rule out bacteremia #H/o UTI : Pseudomona MDR #H/o multiple episodes of bacteremia due to staph #Iron deficiency anemia #Bleeding Sacral ulcers #Chronic heart failure with diastolic dysfunction, stable #H/o hypothyroidism #Euthyroid sick syndrome Cardiac diet Continue telemetry Aggressive K+ replacement given 3,7 Mg+ replacement done Meropenem 1g q8h: pending new cultures (blood, urine and wound) Vancomycin per pharmacy Enoxaparin 100 mg BID Levodopa/ Carbidopa 2 tab hs wound care going Sotalol started due to AFib: 40 mg daily Patient had an episode of active bleeding from one of the sacral ulcers, was controlled with hemostatic dressing, hb 7,9 with no need of transfusion, GI prophylaxis: Not indicated DVT prophylaxis: Lovenox Diet: Diabetic Goals of care discussed with the patient for more than 27 minutes: Full code status Case discussed with , patient and RN Cosigned Dr Dutta, PGY2, resident Plan discussed with: Patient, Other (RN) Dietary Evaluation Review Comments: Check A1C Monitor PO intakes, offer Devin BID Iron supplementation Encourage PT and promoting physical activties Expected Outcomes/Goals: gradual wt loss and healed wound Date of Service: Jan 17, 2025 Billing Provider: SHERRILL PACHECO MD Common Visit Codes: [id number] INP/OBS CARE(HIGH) MARCELINA CHILDS RESIDENT Jan 17, 2025 17:13 MARCELINA FLORES RESIDENT Jan 18, 2025 07:00 SHERRILL PACHECO MD Jan 23, 2025 21:47
[2025-01-17] MEDS: ONDANSETRON HCL 4 MG/2 ML VIAL IV ONE (18:02)
[2025-01-18] VITALS (11 sets, daily range): BP systolic 67–119; BP diastolic 30–59; PULSE 66–72; RESP 16–18; TEMP 97–97.9; O2SAT 98–100
[2025-01-18] MEDS: FUROSEMIDE 20 MG/2 ML VIAL IV SCH (09:56)
[2025-01-18 10:03] LABS: Hematocrit 19.8 % (36.0-46.0); Mean Corpuscular Hemoglobin 26.8 pg (28.0-32.0); Mean Corpuscular Volume 80.7 fL (80.0-100.0); Nucleated Red Blood Cells % 0.1 %
[2025-01-18 10:11] LABS: Hemoglobin 6.6 g/dL (12.2-16.2)
[2025-01-18 10:17] LABS: INR 0.99 (0.9-1.15); Partial Thromboplastin Time 31.3 SEC (24.5-34.5); Prothrombin Time 10.5 sec (9.3-11.8)
[2025-01-18 11:45] LABS: Alkaline Phosphatase 64 U/L (46-116); Anion Gap 7 (5-15); BUN/Creatinine Ratio 60.2 (10.0-20.0); Carbon Dioxide 29 mmol/L (20-31)
[2025-01-18 11:47] LABS: Alanine Aminotransferase < 9 U/L (7-40); Albumin 2.9 g/dL (3.2-4.8); Bilirubin, Total 0.3 mg/dL (0.2-1.0); Blood Urea Nitrogen 53 mg/dL (9-23); Calcium 7.9 mg/dL (8.7-10.4); Chloride 94 mmol/L (98-107); Glucose 166 mg/dL (74-106); Potassium 3.4 mmol/L (3.5-5.1); Sodium 130 mmol/L (136-145); Total Protein 4.7 g/dL (5.7-8.2)
--- NOTE | 2025-01-18 13:07 | DVHPN2 ---
Progress Note - Dictate Date Seen: Jan 18, 2025 Medical Necessity Reason Pt with a Central, PICC or Fol: Yes The following are medically ne: Hook Catheter Subjective PT WAS BEING SEEN IN HOSPITAL WHEN SHE BECAME UNRESPONSIVE BLOOD SUGAR 166 SHE WAS MILDLY HYPOTENSIVE HAD LEFT SIGHT ARM MOVEMENT LASTED ABOUT 10 MINUTES TOTAL/ NO CLEAR POST ICTAL PERIOD PRESENTATION CONSISTENT WITH METABOLIC SYNDROME/ INFECTION ESPECIALLY WITH HER RECENT ADMISSION FOR SEPSIS/ BACTEREMIA RECENT HX OF HYPOTENSION POSITIVE BLOOD CX STAPH PRODUCTIVE COUGH HYPOXIA SEVERE ANEMIA HX OF BLEEDING DIATHESIS NOW BEING TRANSFUSE PMH; HEMATURIA HX OF ORGANIC HD S/P TAVR HX OF AV STENOSIS HTN HFpEF DIASTOLIC DYSFUNCTION AFIB ON SOTALOL HYPERCOAGULABLE STATE HX OF DVT MORBID OBESITY 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 ANEMIA HYPONATREMIA ABX VANCO MEROPENAM DC PICC LINE POSSIBLE SOURCE OF INFECTION NEW ERNESTINA CATH ONCE BLOOD CX NEGATIVE AND FEVER RESOLVED ANF LEUKOCYTOSIS RESOLVES START PT CURRENT GETTING A ERNESTINA CATH may dc home HOME IV ABX FOLLOWUP IN 1 WEEK vital signs Vital Sign Date Time Temp Pulse Resp B/P (MAP) Pulse Ox O2 Delivery O2 Flow Rate FiO2 01/18/25 10:02 100 Room Air* 0 21 01/18/25 09:56 85/49 01/18/25 09:56 72 01/18/25 08:40 97.9 16 97.9 Total Intake and Output 01/17/25 01/17/25 01/18/25 15:00 23:00 07:00 Intake Total 500 ml 450 ml 225 ml Balance 500 ml 450 ml 225 ml medications Current Medications Medications Dose Ordered Sig/Taran Route Start Time Stop Time Status Last Admin Dose Admin Pantoprazole Sodium 40 mg BID IV 01/16/25 10:00 01/18/25 09:52 40 MG Vancomycin HCl 0 ml @ 0 mls/hr UD IV 01/16/25 01:30 Carbidopa/Levodopa 2 tab HS PO 01/16/25 22:00 01/17/25 21:21 2 TAB Tramadol HCl 50 mg QID PRN PO 01/16/25 01:45 01/18/25 10:47 50 MG Levothyroxine Sodium 50 mcg QAM@0600 PO 01/17/25 06:00 01/18/25 05:18 50 MCG Meropenem 50 ml @ 17 mls/hr Q8H IV 01/17/25 06:00 01/18/25 05:18 17 MLS/HR Sotalol HCl 40 mg DAILY PO 01/17/25 11:58 Furosemide 20 mg DAILY IV 01/18/25 10:00 laboratory and microbiology Laboratory Tests 01/18/25 09:50 Test 01/18/25 09:50 Range/Units Serum Glucose 166 H 74-106 mg/dL Problem List PT WAS BEING SEEN IN HOSPITAL WHEN SHE BECAME UNRESPONSIVE BLOOD SUGAR 166 SHE WAS MILDLY HYPOTENSIVE HAD LEFT SIGHT ARM MOVEMENT LASTED ABOUT 10 MINUTES TOTAL/ NO CLEAR POST ICTAL PERIOD PRESENTATION CONSISTENT WITH METABOLIC SYNDROME/ INFECTION ESPECIALLY WITH HER RECENT ADMISSION FOR SEPSIS/ BACTEREMIA RECENT HX OF HYPOTENSION POSITIVE BLOOD CX STAPH PRODUCTIVE COUGH HYPOXIA SEVERE ANEMIA HX OF BLEEDING DIATHESIS NOW BEING TRANSFUSE PMH; HEMATURIA HX OF ORGANIC HD S/P TAVR HX OF AV STENOSIS HTN HFpEF DIASTOLIC DYSFUNCTION AFIB ON SOTALOL HYPERCOAGULABLE STATE HX OF DVT MORBID OBESITY 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 ANEMIA HYPONATREMIA HYPOKALEMIA LEUKOCYTOSIS Assessment/Plan ABX VANCO MEROPENAM NEW ERNESTINA CATH ONCE BLOOD CX NEGATIVE AND FEVER RESOLVED ANF LEUKOCYTOSIS RESOLVES START PT BLOOD CX UCX TRANSFUSE 2 UNITS Dietary Evaluation Review Comments: Check A1C Monitor PO intakes, offer Devin BID Iron supplementation Encourage PT and promoting physical activties Expected Outcomes/Goals: gradual wt loss and healed wound Plan discussed with: Patient, Daughter Critical Care Time(min): 35 MONTRELL RANKIN MD Jan 18, 2025 13:07
--- NOTE | 2025-01-18 14:30 | CONS ---
Pharmacy Clinical Information: From Heart Failure Fallout Report on CQM Application, Pauline Paz is an 79 year old female with atrial fibrillation, HFpEF, PMH of iron-deficiency anemia, recurrent renal stone, sacral ulcer, ESBL UTI, hiatal hernia, horseshoe kidney, ovarian cyst, Parkinsonism For patients >75 years of age, assessment of risk status and a clinician patient risk discussion are needed to decide whether to continue or initiate statin treatment. SGLT2i not recommended at this time due to hypotension. Consider once patient is hemodynamically stable. [facility] Jan 18, 2025 14:30
[2025-01-18 17:59] LABS: Hematocrit 26.1 % (36.0-46.0); Hemoglobin 8.6 g/dL (12.2-16.2)
--- NOTE | 2025-01-18 20:12 | DVHPNRES ---
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 PMHx:iron-deficiency anemia, recurrent renal stone, sacral ulcer, MDR Pseudomona UTI, hiatal hernia, horseshoe kidney, ovarian cyst, atrial fibrillation, heart failure with preserved ejection fraction, parkinsonism PSHx: Right knee surgery for ligament tear Family history: Prostatic cancer in brother, brain cancer in sister Social history: Denies smoking alcohol or illicit drugs Home medication: Sotalol, levothyroxine, Eliquis, Bumex, aspirin , metolazone, betamethasone cream Allergic history: Morphine, penicillin, TMP SMX, ceftriaxone 01/19/2025 interval events: The patient was seen and examined at bedside. She reports feeling better, she denies any pain in the buttock ulcers. I discussed the treatment plan and Port-A-Cath management with daughter over phone. She denies any chest pain, shortness of breath, abdominal pain, nausea, vomiting, urinary symptoms or any other complaints today. Objective vital signs Vital Sign Date Time Temp Pulse Resp B/P (MAP) Pulse Ox O2 Delivery O2 Flow Rate FiO2 01/18/25 16:43 97.3 68 16 67/38 97.3 01/18/25 16:43 100 01/18/25 10:02 Room Air* 0 21 Total Intake and Output 01/17/25 01/17/25 01/18/25 15:00 23:00 07:00 Intake Total 500 ml 450 ml 225 ml Balance 500 ml 450 ml 225 ml medications Current Medications Medications Dose Ordered Sig/Taran Route Start Time Stop Time Status Last Admin Dose Admin Pantoprazole Sodium 40 mg BID IV 01/16/25 10:00 01/18/25 09:52 40 MG Vancomycin HCl 0 ml @ 0 mls/hr UD IV 01/16/25 01:30 Carbidopa/Levodopa 2 tab HS PO 01/16/25 22:00 01/17/25 21:21 2 TAB Tramadol HCl 50 mg QID PRN PO 01/16/25 01:45 01/18/25 10:47 50 MG Levothyroxine Sodium 50 mcg QAM@0600 PO 01/17/25 06:00 01/18/25 05:18 50 MCG Meropenem 50 ml @ 17 mls/hr Q8H IV 01/17/25 06:00 01/18/25 17:21 17 MLS/HR Sotalol HCl 40 mg DAILY PO 01/17/25 11:58 Furosemide 20 mg DAILY IV 01/18/25 10:00 Examination Pt is lying on bed General Appearance: Alert, Oriented X3, Cooperative, Mild distress HEENT: Atraumatic, Mucous membranes moist/pink Respiratory: Clear to auscultation, Normal air movement, No added sounds Cardiovascular: Regular rate, Normal S1, Normal S2, No murmurs Abdominal/ : Active bowel sounds, Soft, no distention, no tenderness Extremities: No edema, Normal pulses, No tenderness/swelling Skin: No Significant rash, except past surgical scars, sacral ulcers measuring 7x6 cm over right buttock, surrounded by erythematous rashes Neuro: Normal speech, sensorimotor deficits none Psych/Mental Status: Mental status NL, Mood NL Nurse was there as project scheduler during examination laboratory and microbiology Laboratory Tests 01/18/25 17:44 01/18/25 09:50 Test 01/18/25 09:50 Range/Units Serum Glucose 166 H 74-106 mg/dL Microbiology Date/Time Source Procedure Growth Status 01/17/25 04:45 Sacrum Gram Stain Pending Resulted 01/17/25 04:45 Sacrum Wound Culture - Preliminary Resulted 01/16/25 12:16 Voided Urine Urine Culture - Preliminary Resulted 01/15/25 20:04 Blood Blood Culture - Preliminary NO GROWTH AFTER 48 HOURS OF INCUBATION. Resulted Problem List/Assessment/Plan Problem List/Assessment/Plan #Syncope, possible due to electrolyte derangement/arrhythmic? #Severe anemia probably to bleeding sacral ulcer with need of transfusion #Rule out GI bleeding #Severe Hypokalemia #Hypomagnesemia #Obqe-bx-dncznlwx chronic microvascular ischemic changes. #Mild global cerebral volume loss #Stroke ruled out #Atrial fibrillation #s/p TAVR #Sepsis due to possible complicated UTI #Rule out bacteremia #H/o UTI : Pseudomona MDR #H/o multiple episodes of bacteremia due to staph #Iron deficiency anemia #Sacral ulcers #Chronic heart failure with diastolic dysfunction, stable #H/o hypothyroidism # atrial fibrillation Cardiac diet Continue telemetry Aggressive K+ replacement: 3 bags given, f/u bmp 10 pm Mg+ replacement Meropenem 1g q8h: pending new cultures (blood, urine and wound) Vancomycin per pharmacy Enoxaparin 100 mg BID Levodopa/ Carbidopa 2 tab hs Wound consult Normal carotid doppler Sotalol started due to AFib Port-A-Cath management is discussed with who advised not to remove the catheter GI prophylaxis: Not indicated DVT prophylaxis: Lovenox Diet: Diabetic Goals of care discussed with the patient for more than 27 minutes: Full code status Case discussed with , patient and RN Plan discussed with: Patient, Daughter, Other (RN) Dietary Evaluation Review Comments: Check A1C Monitor PO intakes, offer Devin BID Iron supplementation Encourage PT and promoting physical activties Expected Outcomes/Goals: gradual wt loss and healed wound Date of Service: Jan 18, 2025 Billing Provider: SHERRILL PACHECO MD Common Visit Codes: [id number] INP/OBS CARE(HIGH) MARCELINA CHILDS RESIDENT Jan 18, 2025 20:12 MARCELINA FLORES RESIDENT Jan 19, 2025 19:09 MARÍA SKY RESIDENT Jan 19, 2025 20:37 SHERRILL PACHECO MD Jan 26, 2025 21:13
[2025-01-19 04:57] VITALS: BP 97/61; PULSE 82; RESP 16; TEMP 97.5; O2SAT 100
[2025-01-19 08:00] VITALS: PULSE 68; PULSE 74; RESP 14; O2SAT 96
[2025-01-19 09:00] VITALS: BP 118/43; PULSE 96; RESP 17; O2SAT 96
[2025-01-19 10:00] VITALS: O2SAT 97
[2025-01-19 10:32] LABS: Hematocrit 25.9 % (36.0-46.0); Hemoglobin 8.6 g/dL (12.2-16.2); Mean Corpuscular Hemoglobin 27.8 pg (28.0-32.0); Mean Corpuscular Volume 83.7 fL (80.0-100.0); Nucleated Red Blood Cells % 0.0 %
[2025-01-19] MEDS: POTASSIUM CHL 20 Meq TABLET PO ONE (11:14)
--- NOTE | 2025-01-19 13:52 | DVHPN2 ---
Progress Note - Dictate Date Seen: Jan 19, 2025 Medical Necessity Reason Pt with a Central, PICC or Fol: Yes The following are medically ne: Hook Catheter Subjective PT WAS BEING SEEN IN HOSPITAL WHEN SHE BECAME UNRESPONSIVE BLOOD SUGAR 166 SHE WAS MILDLY HYPOTENSIVE HAD LEFT SIGHT ARM MOVEMENT LASTED ABOUT 10 MINUTES TOTAL/ NO CLEAR POST ICTAL PERIOD PRESENTATION CONSISTENT WITH METABOLIC SYNDROME/ INFECTION ESPECIALLY WITH HER RECENT ADMISSION FOR SEPSIS/ BACTEREMIA RECENT HX OF HYPOTENSION POSITIVE BLOOD CX STAPH PRODUCTIVE COUGH HYPOXIA SEVERE ANEMIA HX OF BLEEDING DIATHESIS NOW BEING TRANSFUSE PMH; HEMATURIA HX OF ORGANIC HD S/P TAVR HX OF AV STENOSIS HTN HFpEF DIASTOLIC DYSFUNCTION AFIB ON SOTALOL HYPERCOAGULABLE STATE HX OF DVT MORBID OBESITY 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 ANEMIA HYPONATREMIA ABX VANCO MEROPENAM DC PICC LINE POSSIBLE SOURCE OF INFECTION NEW ERNESTINA CATH ONCE BLOOD CX NEGATIVE AND FEVER RESOLVED ANF LEUKOCYTOSIS RESOLVES START PT CURRENT GETTING A ERNESTINA CATH may dc home HOME IV ABX FOLLOWUP IN 1 WEEK vital signs Vital Sign Date Time Temp Pulse Resp B/P (MAP) Pulse Ox O2 Delivery O2 Flow Rate FiO2 01/19/25 11:08 118/43 01/19/25 10:00 97 Room Air 0.0 01/19/25 10:00 21 01/19/25 09:00 96 17 01/19/25 04:57 97.5 97.5 Total Intake and Output 01/18/25 01/18/25 01/19/25 15:00 23:00 07:00 Intake Total 440 ml 350 ml 350 ml Balance 440 ml 350 ml 350 ml medications Current Medications Medications Dose Ordered Sig/Taran Route Start Time Stop Time Status Last Admin Dose Admin Pantoprazole Sodium 40 mg BID IV 01/16/25 10:00 01/18/25 21:57 40 MG Vancomycin HCl 0 ml @ 0 mls/hr UD IV 01/16/25 01:30 Carbidopa/Levodopa 2 tab HS PO 01/16/25 22:00 01/18/25 21:57 2 TAB Tramadol HCl 50 mg QID PRN PO 01/16/25 01:45 01/19/25 05:12 50 MG Levothyroxine Sodium 50 mcg QAM@0600 PO 01/17/25 06:00 01/19/25 05:12 50 MCG Meropenem 50 ml @ 17 mls/hr Q8H IV 01/17/25 06:00 01/19/25 05:12 17 MLS/HR Sotalol HCl 40 mg DAILY PO 01/17/25 11:58 Hold Furosemide 20 mg DAILY IV 01/18/25 10:00 01/19/25 11:08 20 MG laboratory and microbiology Laboratory Tests 01/19/25 09:46 01/18/25 09:50 Test 01/18/25 09:50 Range/Units Serum Glucose 166 H 74-106 mg/dL Problem List PT WAS BEING SEEN IN HOSPITAL WHEN SHE BECAME UNRESPONSIVE BLOOD SUGAR 166 SHE WAS MILDLY HYPOTENSIVE HAD LEFT SIGHT ARM MOVEMENT LASTED ABOUT 10 MINUTES TOTAL/ NO CLEAR POST ICTAL PERIOD PRESENTATION CONSISTENT WITH METABOLIC SYNDROME/ INFECTION ESPECIALLY WITH HER RECENT ADMISSION FOR SEPSIS/ BACTEREMIA RECENT HX OF HYPOTENSION POSITIVE BLOOD CX STAPH PRODUCTIVE COUGH HYPOXIA SEVERE ANEMIA HX OF BLEEDING DIATHESIS NOW BEING TRANSFUSE PMH; HEMATURIA HX OF ORGANIC HD S/P TAVR HX OF AV STENOSIS HTN HFpEF DIASTOLIC DYSFUNCTION AFIB ON SOTALOL HYPERCOAGULABLE STATE HX OF DVT MORBID OBESITY 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 ANEMIA HYPONATREMIA HYPOKALEMIA LEUKOCYTOSIS Assessment/Plan ABX VANCO MEROPENAM NEW ERNESTINA CATH ONCE BLOOD CX NEGATIVE AND FEVER RESOLVED ANF LEUKOCYTOSIS RESOLVES START PT BLOOD CX UCX TRANSFUSE 2 UNITS S/P TRANSFUSION HGH IS >8mg/dl HOLD OFF ON DISCONTINUING ERNESTINA CATH ABX PT Dietary Evaluation Review Comments: Check A1C Monitor PO intakes, offer Devin BID Iron supplementation Encourage PT and promoting physical activties Expected Outcomes/Goals: gradual wt loss and healed wound Plan discussed with: Patient Critical Care Time(min): 35 MONTRELL RANKIN MD Jan 19, 2025 13:52
[2025-01-19] MEDS: VANCOMYCIN HCL 1000 MG VL IR ONE (17:50)
--- NOTE | 2025-01-19 19:27 | DVHPNRES ---
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 PMHx:iron-deficiency anemia, recurrent renal stone, sacral ulcer, MDR Pseudomona UTI, hiatal hernia, horseshoe kidney, ovarian cyst, atrial fibrillation, heart failure with preserved ejection fraction, parkinsonism PSHx: Right knee surgery for ligament tear Family history: Prostatic cancer in brother, brain cancer in sister Social history: Denies smoking alcohol or illicit drugs Home medication: Sotalol, levothyroxine, Eliquis, Bumex, aspirin , metolazone, betamethasone cream Allergic history: Morphine, penicillin, TMP SMX, ceftriaxone 01/19/2025 interval events: The patient was seen and examined at bedside. She denies any chest pain, shortness of breath, abdominal pain, nausea, vomiting, urinary symptoms or any other complaints today. Objective vital signs Vital Sign Date Time Temp Pulse Resp B/P (MAP) Pulse Ox O2 Delivery O2 Flow Rate FiO2 01/19/25 11:08 118/43 01/19/25 10:00 97 Room Air 0.0 01/19/25 10:00 21 01/19/25 09:00 96 17 01/19/25 04:57 97.5 97.5 Total Intake and Output 01/18/25 01/18/25 01/19/25 15:00 23:00 07:00 Intake Total 440 ml 350 ml 350 ml Balance 440 ml 350 ml 350 ml medications Current Medications Medications Dose Ordered Sig/Taran Route Start Time Stop Time Status Last Admin Dose Admin Vancomycin HCl 0 ml @ 0 mls/hr UD IV 01/16/25 01:30 Carbidopa/Levodopa 2 tab HS PO 01/16/25 22:00 01/18/25 21:57 2 TAB Tramadol HCl 50 mg QID PRN PO 01/16/25 01:45 01/19/25 14:00 50 MG Meropenem 50 ml @ 17 mls/hr Q8H IV 01/17/25 06:00 01/19/25 13:49 17 MLS/HR Sotalol HCl 40 mg DAILY PO 01/17/25 11:58 Hold Furosemide 20 mg DAILY IV 01/18/25 10:00 01/19/25 11:08 20 MG Pantoprazole Sodium 40 mg DAILY@0600 PO 01/20/25 06:00 Levothyroxine Sodium 50 mcg QAM@0600 PO 01/20/25 06:00 Examination Pt is lying on bed General Appearance: Alert, Oriented X3, Cooperative, Mild distress HEENT: Atraumatic, Mucous membranes moist/pink Respiratory: Clear to auscultation, Normal air movement, No added sounds Cardiovascular: Regular rate, Normal S1, Normal S2, No murmurs Abdominal/ : Active bowel sounds, Soft, no distention, no tenderness Extremities: No edema, Normal pulses, No tenderness/swelling Skin: No Significant rash, except past surgical scars, sacral ulcers measuring 7x6 cm over right buttock, surrounded by erythematous rashes Neuro: Normal speech, sensorimotor deficits none Psych/Mental Status: Mental status NL, Mood NL Nurse was there as track laying equipment operator during examination laboratory and microbiology Laboratory Tests 01/19/25 09:46 01/18/25 09:50 Test 01/18/25 09:50 Range/Units Serum Glucose 166 H 74-106 mg/dL Microbiology Date/Time Source Procedure Growth Status 01/17/25 04:45 Sacrum Gram Stain Pending Resulted 01/17/25 04:45 Sacrum Wound Culture - Preliminary Resulted 01/16/25 12:16 Voided Urine Urine Culture - Final Presumptive Leidy albicans Complete 01/15/25 20:04 Blood Blood Culture - Preliminary NO GROWTH AFTER 72 HOURS OF INCUBATION. Resulted Labs and/or images reviewed: Labs reviewed by me, Image(s) reviewed by me Problem List/Assessment/Plan Problem List/Assessment/Plan #Syncope, possible due to electrolyte derangement/arrhythmic? #Severe Hypokalemia #Hypomagnesemia #Oacc-gh-ohvywnyb chronic microvascular ischemic changes. #Mild global cerebral volume loss #Stroke ruled out #Atrial fibrillation #s/p TAVR #Sepsis due to possible complicated UTI #Rule out bacteremia #H/o UTI : Pseudomona MDR #H/o multiple episodes of bacteremia due to staph #Iron deficiency anemia #Sacral ulcers #Chronic heart failure with diastolic dysfunction, stable #H/o hypothyroidism # atrial fibrillation Cardiac diet Continue telemetry Aggressive K+ replacement: 3 bags given, f/u bmp 10 pm Mg+ replacement Meropenem 1g q8h: pending new cultures (blood, urine and wound) Vancomycin per pharmacy Enoxaparin 100 mg BID Levodopa/ Carbidopa 2 tab hs Wound consult Normal carotid doppler Sotalol for AFib was started, discontinued due to hypotension. Blood culture from Port-A-Cath sent Port-A-Cath management discussed with Dr. Cifuentes. He advised to do blood cultures and to keep it in place. IV antibiotic (Vancomycin) lock via Port-A-Cath catheter continued. GI prophylaxis: Not indicated DVT prophylaxis: Lovenox Diet: Diabetic Goals of care discussed with the patient for more than 27 minutes: Full code status Case discussed with , patient and RN Plan discussed with: Patient, Other (RN) My Orders My Orders Orders - MARCELINA CHILDS RESIDENT Procedure Category Date Status Time Blood Culture LIA 01/19/25 Uncollected 05:47 Blood Culture LIA 01/19/25 Uncollected 08:35 Blood Culture LIA 01/19/25 Uncollected 08:38 Basic Metabolic Panel LAB 01/20/25 Verified 04:00 Pantoprazole Tablet PHA 01/20/25 In Process (Protonix Tablet) 06:00 Dietary Evaluation Review Comments: Check A1C Monitor PO intakes, offer Devin BID Iron supplementation Encourage PT and promoting physical activties Expected Outcomes/Goals: gradual wt loss and healed wound Date of Service: Jan 19, 2025 Billing Provider: SHERRILL PACHECO MD Common Visit Codes: [id number] INP/OBS CARE(HIGH) MARCELINA CHILDS RESIDENT Jan 19, 2025 19:27 MARÍA SKY RESIDENT Jan 19, 2025 20:47 MARCELINA FLORES RESIDENT Jan 19, 2025 20:51 SHERRILL PACHECO MD Jan 26, 2025 21:25
[2025-01-19 20:00] VITALS: PULSE 100; PULSE 74; RESP 17
[2025-01-19 21:00] VITALS: BP 97/30; PULSE 105; RESP 18; TEMP 98.1; O2SAT 100
[2025-01-20 05:00] VITALS: BP 98/37; PULSE 85; RESP 18; TEMP 98; O2SAT 97
[2025-01-20] MEDS: PANTOPRAZOLE 40 MG TAB PO SCH (05:35)
[2025-01-20] MEDS: LEVOTHYROXINE SODIUM 50 MCG TAB PO SCH (05:35)
[2025-01-20 07:03] LABS: Anion Gap 9 (5-15); Carbon Dioxide 29 mmol/L (20-31)
[2025-01-20 07:06] LABS: Calcium 8.3 mg/dL (8.7-10.4); Chloride 93 mmol/L (98-107); Potassium 2.9 mmol/L (3.5-5.1); Sodium 131 mmol/L (136-145)
[2025-01-20 07:09] LABS: BUN/Creatinine Ratio 45.8 (10.0-20.0); Glucose 76 mg/dL (74-106)
[2025-01-20 07:11] LABS: Blood Urea Nitrogen 33 mg/dL (9-23)
[2025-01-20 08:00] VITALS: PULSE 92; RESP 16; O2SAT 96
[2025-01-20 08:03] LABS: Hematocrit 25.7 % (36.0-46.0); Hemoglobin 8.5 g/dL (12.2-16.2); Mean Corpuscular Hemoglobin 27.5 pg (28.0-32.0); Mean Corpuscular Volume 83.0 fL (80.0-100.0); Nucleated Red Blood Cells % 0.2 %
--- NOTE | 2025-01-20 09:21 | DVHPNRES ---
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 Overnight events were reviewed. She denies any chest pain, shortness of breath, fever, urinary symptoms, pain or bleeding from the ulcer site or any other complaints today. Objective vital signs Vital Sign Date Time Temp Pulse Resp B/P (MAP) Pulse Ox O2 Delivery O2 Flow Rate FiO2 01/20/25 05:00 98.0 85 18 98/37 (57) 97 98.0 01/19/25 20:00 Room Air* 0 21 Total Intake and Output 01/19/25 01/19/25 01/20/25 15:00 23:00 07:00 Intake Total 600 ml 1000 ml Balance 600 ml 1000 ml medications Current Medications Medications Dose Ordered Sig/Taran Route Start Time Stop Time Status Last Admin Dose Admin Vancomycin HCl 0 ml @ 0 mls/hr UD IV 01/16/25 01:30 Carbidopa/Levodopa 2 tab HS PO 01/16/25 22:00 01/19/25 21:30 2 TAB Tramadol HCl 50 mg QID PRN PO 01/16/25 01:45 01/19/25 14:00 50 MG Meropenem 50 ml @ 17 mls/hr Q8H IV 01/17/25 06:00 01/20/25 05:35 17 MLS/HR Sotalol HCl 40 mg DAILY PO 01/17/25 11:58 Hold Furosemide 20 mg DAILY IV 01/18/25 10:00 01/19/25 11:08 20 MG Pantoprazole Sodium 40 mg DAILY@0600 PO 01/20/25 06:00 01/20/25 05:35 40 MG Levothyroxine Sodium 50 mcg QAM@0600 PO 01/20/25 06:00 01/20/25 05:35 50 MCG Potassium Chloride 100 ml @ 50 mls/hr Q2H IV 01/20/25 07:45 01/20/25 13:44 Examination General Appearance: Alert, Oriented X3, Cooperative, Mild distress HEENT: Atraumatic, Mucous membranes moist/pink Respiratory: Clear to auscultation, Normal air movement, No added sounds Cardiovascular: Regular rate, Normal S1, Normal S2, No murmurs Abdominal/ : Active bowel sounds, Soft, no distention, no tenderness Extremities: No edema, Normal pulses, No tenderness/swelling Skin: No Significant rash, except past surgical scars, sacral ulcers measuring 7x6 cm over right buttock, surrounded by erythematous rashes Neuro: Normal speech, sensorimotor deficits none Psych/Mental Status: Mental status NL, Mood NL Nurse was there as manager systems during examination laboratory and microbiology Laboratory Tests 01/20/25 05:08 Test 01/20/25 05:08 Range/Units Serum Glucose 76 74-106 mg/dL Microbiology Date/Time Source Procedure Growth Status 01/17/25 04:45 Sacrum Gram Stain Pending Resulted 01/17/25 04:45 Sacrum Wound Culture - Preliminary Resulted 01/16/25 12:16 Voided Urine Urine Culture - Final Presumptive Leidy albicans Complete 01/15/25 20:04 Blood Blood Culture - Preliminary NO GROWTH AFTER 72 HOURS OF INCUBATION. Resulted Labs and/or images reviewed: Labs reviewed by me, Image(s) reviewed by me Problem List/Assessment/Plan Problem List/Assessment/Plan #Syncope, possible due to electrolyte derangement/arrhythmic? #Severe Hypokalemia #Hypomagnesemia #Djqf-vs-maeheifo chronic microvascular ischemic changes. #Mild global cerebral volume loss #Stroke ruled out #Atrial fibrillation Normal carotid doppler Head CT:No intracranial hemorrhage or mass effect. Giik-ch-qggypwet chronic microvascular ischemic changes.Mild global cerebral volume loss. Cardiac diet Continue telemetry Aggressive K+ replacement: 60 mEq Mg+ replacement DC furosemide due to hypokalemia #Chronic heart failure with diastolic dysfunction, stable #H/o hypothyroidism #Euthyroid sick syndrome #atrial fibrillation Sotalol for AFib was started, discontinued due to hypotension. Levothyroxin 50 mcg TSH 0.22, Free T4 2.37, Free T3 1.82 Outpatient follow up. #Sepsis due to possible complicated UTI / sacral ulcers #Rule out bacteremia #H/o UTI : Pseudomona MDR #H/o multiple episodes of bacteremia due to staph WBC downtrending Meropenem 1g q8h: pending new cultures (blood, urine and wound) Vancomycin per pharmacy Enoxaparin 100 mg BID Port-A-Cath management discussed with Dr. Cifuentes. He advised to do blood cultures and to keep it in place. Blood culture from Port-A-Cath sent, pending results. IV antibiotic (Vancomycin) lock via Port-A-Cath catheter continued. #Iron deficiency anemia #Sacral ulcers bleeding Sacral ulcer was bleeding, controlled. Wound consult. Blood transfusion if Hemoglobin below 7 # QT prolongation on EKG Avoid ondansetron, azithromycin and other QT prolonging drugs #Parkinsonism Levodopa/ Carbidopa 2 tab hs GI prophylaxis: protonix DVT prophylaxis: SCDs Diet: Diabetic Goals of care discussed with the patient for more than 27 minutes: Full code status Case discussed with , patient and RN Plan discussed with: Patient, Other My Orders My Orders Orders - MARCELINA CHILDS RESIDENT Procedure Category Date Status Time Pantoprazole Tablet PHA 01/20/25 In Process (Protonix Tablet) 06:00 Potassium Chl PHA 01/20/25 In Process 20meq/100ml 07:45 Dietary Evaluation Review Comments: Check A1C Monitor PO intakes, offer Devin BID Iron supplementation Encourage PT and promoting physical activties Expected Outcomes/Goals: gradual wt loss and healed wound Date of Service: Jan 20, 2025 Billing Provider: SHERRILL PACHECO MD Common Visit Codes: [id number] INP/OBS CARE(HIGH) MARCELINA CHILDS RESIDENT Jan 20, 2025 09:21 MARCELINA FLORES RESIDENT Jan 20, 2025 19:04 SHERRILL PACHECO MD Jan 26, 2025 21:34
[2025-01-20] MEDS: POTASSIUM CHL 20MEQ/100ML 100 ML IV SCH (09:23)
[2025-01-20 10:00] VITALS: O2SAT 96
[2025-01-20 20:00] VITALS: RESP 17
[2025-01-20] MEDS: METOCLOPRAMIDE HCL 5MG/ml INJ 2ml VIAL IV SCH (21:31)
[2025-01-21 06:38] LABS: Mean Corpuscular Volume 83.3 fL (80.0-100.0)
[2025-01-21 06:41] LABS: Hematocrit 23.7 % (36.0-46.0); Hemoglobin 7.9 g/dL (12.2-16.2); Mean Corpuscular Hemoglobin 27.8 pg (28.0-32.0)
[2025-01-21 06:59] LABS: Magnesium 1.9 mg/dL (1.6-2.6)
[2025-01-21 07:55] LABS: Anisocytosis Slight; Polychromasia Slight; Total Cells Counted 100.0 (100)
[2025-01-21 08:00] VITALS: RESP 16; O2SAT 96
[2025-01-21 08:09] LABS: Potassium 3.7 mmol/L (3.5-5.1)
[2025-01-21 08:10] LABS: Anion Gap 7 (5-15); Carbon Dioxide 30 mmol/L (20-31)
[2025-01-21 08:15] LABS: BUN/Creatinine Ratio 57.1 (10.0-20.0); Glucose 90 mg/dL (74-106)
[2025-01-21 08:16] LABS: Blood Urea Nitrogen 40 mg/dL (9-23); Calcium 8.3 mg/dL (8.7-10.4); Chloride 96 mmol/L (98-107); Sodium 133 mmol/L (136-145)
[2025-01-21 10:00] VITALS: O2SAT 96
[2025-01-21] MEDS: MAGNESIUM SULFATE 1GM/100ML 100 ML IV ONE (12:59)
--- NOTE | 2025-01-21 16:59 | DVHPNRES ---
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 Patient currently not in acute distress denies any fever, abdominal pain, SOB, chest pain, dysuria, headache. Patient stated she is feeling better today. No acute event reported overnight. Labs reviewed and leukocytosis trending down 12.5 to 11.3. Sacral wound culture and sensitivity CVT and sensitivity sent on 01/19/2025 shows preliminary result Gram-negative rods and few yeast. Pending sensitivity. Objective vital signs Vital Sign Date Time Temp Pulse Resp B/P (MAP) Pulse Ox O2 Delivery O2 Flow Rate FiO2 01/20/25 20:00 17 Room Air* 0 21 01/20/25 11:18 100/44 01/20/25 10:00 96 01/20/25 08:00 92 01/20/25 05:00 98.0 98.0 Total Intake and Output 01/20/25 01/20/25 01/21/25 15:00 23:00 07:00 Intake Total 1273 ml 930 ml 290 ml Output Total 100 ml 2 ml Balance 1273 ml 830 ml 288 ml medications Current Medications Medications Dose Ordered Sig/Taran Route Start Time Stop Time Status Last Admin Dose Admin Vancomycin HCl 0 ml @ 0 mls/hr UD IV 01/16/25 01:30 Carbidopa/Levodopa 2 tab HS PO 01/16/25 22:00 01/20/25 21:31 2 TAB Tramadol HCl 50 mg QID PRN PO 01/16/25 01:45 01/20/25 20:17 50 MG Meropenem 50 ml @ 17 mls/hr Q8H IV 01/17/25 06:00 01/21/25 14:18 17 MLS/HR Sotalol HCl 40 mg DAILY PO 01/17/25 11:58 Hold Pantoprazole Sodium 40 mg DAILY@0600 PO 01/20/25 06:00 01/21/25 05:17 40 MG Levothyroxine Sodium 50 mcg QAM@0600 PO 01/20/25 06:00 01/21/25 05:17 50 MCG Metoclopramide HCl 5 mg Q8HR IV 01/20/25 22:00 01/21/25 14:17 5 MG Examination General Appearance: Alert, Oriented X3, Cooperative, obese, lying on bed HEENT: Atraumatic, Mucous membranes moist/pink Respiratory: Clear to auscultation, Normal air movement, No added sounds Cardiovascular: Regular rate, Normal S1, Normal S2, No murmurs Abdominal/ : Active bowel sounds, Soft, no distention, no tenderness Extremities: No edema, Normal pulses, No tenderness/swelling Skin: No Significant rash, except past surgical scars, sacral ulcers measuring 7x6 cm over right buttock, surrounded by erythematous rashes Neuro: Normal speech, sensorimotor deficits none Psych/Mental Status: Mental status NL, Mood NL Nurse was there as circuit designer during examination laboratory and microbiology Laboratory Tests 01/21/25 05:44 Test 01/21/25 05:44 Range/Units Serum Glucose 90 74-106 mg/dL Microbiology Date/Time Source Procedure Growth Status 01/19/25 16:03 Blood Blood Culture - Preliminary NO GROWTH AFTER 24 HOURS OF INCUBATION. Resulted 01/17/25 04:45 Sacrum Gram Stain Pending Resulted 01/17/25 04:45 Sacrum Wound Culture - Preliminary Resulted 01/16/25 12:16 Voided Urine Urine Culture - Final Presumptive Leidy albicans Complete Problem List/Assessment/Plan Problem List/Assessment/Plan Assessment and plan: #Syncope, possible due to electrolyte derangement/arrhythmic? #Severe Hypokalemia #Hypomagnesemia #Pfcg-gh-ezpacmhm chronic microvascular ischemic changes. #Mild global cerebral volume loss #Stroke ruled out #Atrial fibrillation Normal carotid doppler Head CT:No intracranial hemorrhage or mass effect. Kdly-xb-moooswma chronic microvascular ischemic changes.Mild global cerebral volume loss. Cardiac diet Continue telemetry Aggressive K+ replacement: 60 mEq done. Today potassium level 4.1 DC furosemide due to hypokalemia #Chronic heart failure with diastolic dysfunction, stable #H/o hypothyroidism #Euthyroid sick syndrome #atrial fibrillation Sotalol for AFib was started, discontinued due to hypotension. Levothyroxin 50 mcg TSH 0.22, Free T4 2.37, Free T3 1.82 Outpatient follow up. #Sepsis due to possible complicated UTI / sacral ulcers #Rule out bacteremia #H/o UTI : Pseudomona MDR #H/o multiple episodes of bacteremia due to staph WBC 12.5 to 11.3 Meropenem 1g q8h: pending new cultures (blood, urine and wound) Vancomycin per pharmacy Enoxaparin 100 mg BID Port-A-Cath management discussed with Dr. Cifuentes. He advised to do blood cultures and to keep it in place. Blood culture from Port-A-Cath sent, pending results. IV antibiotic (Vancomycin) lock via Port-A-Cath catheter done. Nasal swab on 08/18/2019 negative for MRSA Urine culture presumed deep candidiasis on 01/19/2025 Blood cultures 8 02/10/2025-no growth x 2 #Iron deficiency anemia Current hemoglobin 7.9 and HCT 23.7 No signs symptoms of active bleeding #Sacral ulcers bleeding Sacral ulcer was bleeding, controlled. Wound consult. Blood transfusion if Hemoglobin below 7 # QT prolongation on EKG Avoid ondansetron, azithromycin and other QT prolonging drugs #Parkinsonism Levodopa/ Carbidopa 2 tab hs GI prophylaxis: protonix 40 mg p.o. daily DVT prophylaxis: SCDs Diet: Diabetic Goals of care discussed with the patient for more than 23 minutes: Full code status. Case discussed with . Plan discussed with: Patient, Other (Nurse) Dietary Evaluation Review Comments: Check A1C Monitor PO intakes, offer Devin BID Iron supplementation Encourage PT and promoting physical activties Expected Outcomes/Goals: gradual wt loss and healed wound Date of Service: Jan 21, 2025 Billing Provider: SHERRILL PACHECO MD Common Visit Codes: [id number] INP/OBS CARE(HIGH) SOPHY EVANS RESIDENT Jan 21, 2025 16:59 SHERRILL PACHECO MD Jan 26, 2025 22:07
[2025-01-21 20:00] VITALS: RESP 17
[2025-01-21 21:00] VITALS: TEMP 97.8
[2025-01-22] VITALS (7 sets, daily range): BP systolic 107; BP diastolic 60; PULSE 58–101; RESP 18–20; TEMP 97.4–97.7; O2SAT 95–98
[2025-01-22 06:26] LABS: Anion Gap 9 (5-15); Carbon Dioxide 29 mmol/L (20-31); Potassium 3.5 mmol/L (3.5-5.1)
[2025-01-22 06:28] LABS: Calcium 8.5 mg/dL (8.7-10.4); Chloride 95 mmol/L (98-107); Sodium 133 mmol/L (136-145)
[2025-01-22 06:32] LABS: BUN/Creatinine Ratio 45.0 (10.0-20.0); Glucose 89 mg/dL (74-106)
[2025-01-22 06:33] LABS: Magnesium 2.2 mg/dL (1.6-2.6)
[2025-01-22 06:36] LABS: Blood Urea Nitrogen 36 mg/dL (9-23)
[2025-01-22 06:52] LABS: Hematocrit 25.8 % (36.0-46.0); Hemoglobin 8.6 g/dL (12.2-16.2); Mean Corpuscular Hemoglobin 27.9 pg (28.0-32.0); Mean Corpuscular Volume 83.9 fL (80.0-100.0)
[2025-01-22 09:24] LABS: Smudge Cells 3 /100 WBC; Total Cells Counted 100.0 (100)
--- NOTE | 2025-01-22 16:14 | DVHPNRES ---
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 No acute overnight events. Complains of sleeping disturbance, which is usual for her. She denies any chest pain, shortness of breath, fever, pain at the ulcer site, abdominal pain, nausea, vomiting, constipation or any other complaints today. Patient is willing to go home. However microbiology lab called to report a multidrug resistant Pseudomonas growing from her sacral ulcer culture. Waiting for susceptibility results. Objective vital signs Vital Sign Date Time Temp Pulse Resp B/P (MAP) Pulse Ox O2 Delivery O2 Flow Rate FiO2 01/22/25 13:00 97.6 101 18 95 97.6 01/22/25 10:14 Nasal Cannula 2.0 01/22/25 10:14 28 Total Intake and Output 01/21/25 01/21/25 01/22/25 15:00 23:00 07:00 Intake Total 600 ml 50 ml 250 ml Balance 600 ml 50 ml 250 ml medications Current Medications Medications Dose Ordered Sig/Taran Route Start Time Stop Time Status Last Admin Dose Admin Vancomycin HCl 0 ml @ 0 mls/hr UD IV 01/16/25 01:30 Carbidopa/Levodopa 2 tab HS PO 01/16/25 22:00 01/21/25 22:14 2 TAB Tramadol HCl 50 mg QID PRN PO 01/16/25 01:45 01/22/25 12:24 50 MG Meropenem 50 ml @ 17 mls/hr Q8H IV 01/17/25 06:00 01/22/25 15:22 17 MLS/HR Sotalol HCl 40 mg DAILY PO 01/17/25 11:58 Hold Pantoprazole Sodium 40 mg DAILY@0600 PO 01/20/25 06:00 01/22/25 06:08 40 MG Levothyroxine Sodium 50 mcg QAM@0600 PO 01/20/25 06:00 01/22/25 06:08 50 MCG Metoclopramide HCl 5 mg Q8HR IV 01/20/25 22:00 01/22/25 06:08 5 MG Ertapenem 1 gm/ Sodium Chloride 50 ml @ 100 mls/hr DAILY IV 01/23/25 10:00 Future Hold Examination General Appearance: Alert, Oriented X3, Cooperative, obese, lying on bed HEENT: Atraumatic, Mucous membranes moist/pink Respiratory: Clear to auscultation, Normal air movement, No added sounds Cardiovascular: Regular rate, Normal S1, Normal S2, No murmurs Abdominal/ : Active bowel sounds, Soft, no distention, no tenderness Extremities: No edema, Normal pulses, No tenderness/swelling Skin: No Significant rash, except past surgical scars, sacral ulcer measuring 7x6 cm over right buttock, surrounded by erythematous rashes Neuro: Normal speech, sensorimotor deficits none Psych/Mental Status: Mental status NL, Mood NL Nurse was there as associate professor computer science during examination laboratory and microbiology Laboratory Tests 01/22/25 05:10 Test 01/22/25 05:10 Range/Units Serum Glucose 89 74-106 mg/dL Microbiology Date/Time Source Procedure Growth Status 01/19/25 16:03 Blood Blood Culture - Preliminary NO GROWTH AFTER 48 HOURS OF INCUBATION. Resulted 01/17/25 04:45 Sacrum Gram Stain - Final Resulted 01/17/25 04:45 Sacrum Wound Culture - Preliminary Resulted 01/16/25 12:16 Voided Urine Urine Culture - Final Presumptive Amaris albicans Complete Labs and/or images reviewed: Labs reviewed by me, Image(s) reviewed by me Problem List/Assessment/Plan Problem List/Assessment/Plan #Syncope, possible due to electrolyte derangement/arrhythmic? #Wjsl-ky-xwepnrsl chronic brain microvascular ischemic changes #Mild global cerebral volume loss #Stroke ruled out Normal carotid Doppler Head CT:No intracranial hemorrhage or mass effect. Hblm-gr-mfigjyeq chronic microvascular ischemic changes.Mild global cerebral volume loss. #Chronic heart failure with diastolic dysfunction, stable #Permanent atrial fibrillation (CHADS-VASc 5)-secondary hypercoagulability state Sotalol for AFib was initially started then discontinued due to hypotension. Patient's apixaban and enoxaparin was discontinued due to bleeding and anemia with transfusion needed Currently patient is with no anticoagulation medication., resume it per PCP, Dr Cifuentes recommendation #Severe Hypokalemia; resolved #Hypomagnesemia Cardiac diet Continue telemetry Aggressive K+ replacement Mg+ replacement #Sepsis due to possible complicated UTI / sacral ulcers # multidrug resistant Pseudomonas growing from sacral ulcers #Rule out bacteremia #H/o UTI : Pseudomonas MDR #H/o multiple episodes of bacteremia due to staph WBC downtrending Ertapenem 1gr IV daily Vancomycin per pharmacy Sacral ulcer, wound culture growing multidrug resistant Pseudomonas, awaiting antibiotic susceptibility results for HH IV AB Levodopa/ Carbidopa 2 tab hs Port-A-Cath management discussed with Dr. Cifuentes. He advised to do blood cultures and to keep it in place. Blood culture from Port-A-Cath sent, pending results. prelim neg IV antibiotic (Vancomycin) lock via Port-A-Cath catheter given, once cultures: blood prelim neg, urine: amaris, sacral wound described above #Iron deficiency anemia #Decubitus sacral ulcers - Present on admission, complicated by bleeding #Severe anemia due to bleeding , need of transfusion, resolving Sacral ulcer was bleeding, controlled. Discontinued enoxaparin Wound consult. Wound culture shows MDRO Pseudomonas. Pending antibiogram Blood transfusion if Hemoglobin below 7 No iron for now due to acute infection Pt required 1 urbc # QT prolongation on EKG Avoid ondansetron, azithromycin and other QT prolonging drugs #Chronic Hypothyroidism #Iatrogenic hyperthyroidism Patient's TSH 0.22, Free T4 2.37, Free T3 1.82. Interpret as iatrogenic hyperthyroidism. Reduced home dose from 75 mcg p.o. daily to levothyroxine 50 mcg p.o. daily Follow up with PCP GI prophylaxis: protonix DVT prophylaxis: SCDs Diet: Diabetic Goals of care discussed with the patient and her daughter for 20 minutes: Full code status Case discussed with Dr. Aranda, patient and RN Plan discussed with: Patient, Daughter (RN), Other (RN) My Orders My Orders Orders - MARCELINA CHILDS RESIDENT Procedure Category Date Status Time * Rotoformer Backtender CONS 01/22/25 Transmitted Consult 14:39 Ertapenem Sod Inj PHA 01/23/25 In Process (Invanz) 10:00 Dietary Evaluation Review Comments: Check A1C Monitor PO intakes, offer Devin BID Iron supplementation Encourage PT and promoting physical activties Expected Outcomes/Goals: gradual wt loss and healed wound Addendum Addendum Addendum I was physically present for the canas portions of the service provided to patient by THE RESIDENT. I have reviewed the documentation, discussed the case with resident and agree with the resident's documentation except as noted. Also the patient's clinical case was discussed with the patient's nurse. This medical document was created using an electronic medical record system with computerized dictation system. Although this document has been carefully reviewed, there might still be some phonetic and typographical errors. These areas are purely typographical due to imperfections of the software programs, and do not reflect any compromise in the patient's medical care. Late signature. Date of Service: Jan 22, 2025 Billing Provider: STEPAN ARANDA MD Common Visit Codes: [id number] INP/OBS CARE(HIGH) Secondary Visit Codes: [id number] CARE PLAN 30 MINUTES (20 minutes) MARCELINA CHILDS RESIDENT Jan 22, 2025 16:14 MARÍA SKY RESIDENT Jan 22, 2025 19:41 MARCELINA FLORES RESIDENT Jan 22, 2025 21:20 STEPAN ARANDA MD Jan 23, 2025 06:16
[2025-01-22] MEDS: ERTAPENEM SOD INJ 1 GM in SODIUM CHL 0.9% 50 ML IV ONE (20:54)
[2025-01-23] VITALS (12 sets, daily range): BP systolic 91–157; BP diastolic 56–78; PULSE 55–102; RESP 14–20; TEMP 94.7–97.8; O2SAT 94–99
[2025-01-23 05:44] LABS: Anion Gap 9 (5-15); Carbon Dioxide 23 mmol/L (20-31); Chloride 105 mmol/L (98-107); Sodium 137 mmol/L (136-145)
[2025-01-23 05:46] LABS: Hematocrit 19.6 % (36.0-46.0); Mean Corpuscular Hemoglobin 28.9 pg (28.0-32.0); Mean Corpuscular Volume 83.9 fL (80.0-100.0); Nucleated Red Blood Cells % 0.2 %
[2025-01-23 05:48] LABS: Calcium 6.6 mg/dL (8.7-10.4); Potassium 2.7 mmol/L (3.5-5.1)
[2025-01-23 05:50] LABS: Glucose 83 mg/dL (74-106)
[2025-01-23 05:51] LABS: BUN/Creatinine Ratio 36.5 (10.0-20.0)
[2025-01-23 05:57] LABS: Blood Urea Nitrogen 23 mg/dL (9-23)
[2025-01-23 06:09] LABS: Hemoglobin 6.8 g/dL (12.2-16.2)
[2025-01-23] MEDS: POTASSIUM CHL 20 Meq TABLET PO ONE (07:34)
[2025-01-23] MEDS ORDERED: POTASSIUM CHL 20MEQ/100ML 100 ML IV SCH (08:45)
--- NOTE | 2025-01-23 08:46 | DVHPN2 ---
Progress Note - Dictate Date Seen: Jan 21, 2025 Medical Necessity Reason Pt with a Central, PICC or Fol: No Subjective PT WAS BEING SEEN IN HOSPITAL WHEN SHE BECAME UNRESPONSIVE BLOOD SUGAR 166 SHE WAS MILDLY HYPOTENSIVE HAD LEFT SIGHT ARM MOVEMENT LASTED ABOUT 10 MINUTES TOTAL/ NO CLEAR POST ICTAL PERIOD PRESENTATION CONSISTENT WITH METABOLIC SYNDROME/ INFECTION ESPECIALLY WITH HER RECENT ADMISSION FOR SEPSIS/ BACTEREMIA RECENT HX OF HYPOTENSION POSITIVE BLOOD CX STAPH PRODUCTIVE COUGH HYPOXIA SEVERE ANEMIA HX OF BLEEDING DIATHESIS NOW BEING TRANSFUSE PMH; HEMATURIA HX OF ORGANIC HD S/P TAVR HX OF AV STENOSIS HTN HFpEF DIASTOLIC DYSFUNCTION AFIB ON SOTALOL HYPERCOAGULABLE STATE HX OF DVT MORBID OBESITY 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 ANEMIA HYPONATREMIA ABX VANCO MEROPENAM DC PICC LINE POSSIBLE SOURCE OF INFECTION NEW ERNESTINA CATH ONCE BLOOD CX NEGATIVE AND FEVER RESOLVED ANF LEUKOCYTOSIS RESOLVES START PT CURRENT GETTING A ERNESTINA CATH may dc home HOME IV ABX FOLLOWUP IN 1 WEEK vital signs Vital Sign Date Time Temp Pulse Resp B/P (MAP) Pulse Ox O2 Delivery O2 Flow Rate FiO2 01/23/25 05:00 97.5 68 20 96/72 (80) 98 97.5 01/22/25 20:10 Room Air* 0 21 Total Intake and Output 01/22/25 01/22/25 01/23/25 15:00 23:00 07:00 Intake Total 480 ml 1100 ml 500 ml Balance 480 ml 1100 ml 500 ml medications Current Medications Medications Dose Ordered Sig/Taran Route Start Time Stop Time Status Last Admin Dose Admin Vancomycin HCl 0 ml @ 0 mls/hr UD IV 01/16/25 01:30 Carbidopa/Levodopa 2 tab HS PO 01/16/25 22:00 01/22/25 22:24 2 TAB Tramadol HCl 50 mg QID PRN PO 01/16/25 01:45 01/23/25 04:31 50 MG Sotalol HCl 40 mg DAILY PO 01/17/25 11:58 Hold Pantoprazole Sodium 40 mg DAILY@0600 PO 01/20/25 06:00 01/23/25 05:53 40 MG Levothyroxine Sodium 50 mcg QAM@0600 PO 01/20/25 06:00 01/23/25 05:53 50 MCG Metoclopramide HCl 5 mg Q8HR IV 01/20/25 22:00 01/23/25 05:53 5 MG Ertapenem 1 gm/ Sodium Chloride 50 ml @ 100 mls/hr DAILY IV 01/23/25 10:00 Future hold laboratory and microbiology Laboratory Tests 01/23/25 04:48 Test 01/23/25 04:48 Range/Units Serum Glucose 83 74-106 mg/dL Problem List PT WAS BEING SEEN IN HOSPITAL WHEN SHE BECAME UNRESPONSIVE BLOOD SUGAR 166 SHE WAS MILDLY HYPOTENSIVE HAD LEFT SIGHT ARM MOVEMENT LASTED ABOUT 10 MINUTES TOTAL/ NO CLEAR POST ICTAL PERIOD PRESENTATION CONSISTENT WITH METABOLIC SYNDROME/ INFECTION ESPECIALLY WITH HER RECENT ADMISSION FOR SEPSIS/ BACTEREMIA RECENT HX OF HYPOTENSION POSITIVE BLOOD CX STAPH PRODUCTIVE COUGH HYPOXIA SEVERE ANEMIA HX OF BLEEDING DIATHESIS NOW BEING TRANSFUSE PMH; HEMATURIA HX OF ORGANIC HD S/P TAVR HX OF AV STENOSIS HTN HFpEF DIASTOLIC DYSFUNCTION AFIB ON SOTALOL HYPERCOAGULABLE STATE HX OF DVT MORBID OBESITY 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 ANEMIA HYPONATREMIA HYPOKALEMIA LEUKOCYTOSIS Assessment/Plan ABX VANCO MEROPENAM NEW ERNESTINA CATH ONCE BLOOD CX NEGATIVE AND FEVER RESOLVED ANF LEUKOCYTOSIS RESOLVES START PT BLOOD CX UCX TRANSFUSE 2 UNITS S/P TRANSFUSION HGH IS >8mg/dl HOLD OFF ON DISCONTINUING ERNESTINA CATH ABX PT Dietary Evaluation Review Comments: Check A1C Monitor PO intakes, offer Devin BID Iron supplementation Encourage PT and promoting physical activties Expected Outcomes/Goals: gradual wt loss and healed wound Plan discussed with: Patient, Other MONTRELL RANKIN MD Jan 23, 2025 08:46
--- NOTE | 2025-01-23 08:47 | DVHPN2 ---
Progress Note - Dictate Date Seen: Jan 23, 2025 Medical Necessity Reason Pt with a Central, PICC or Fol: No Subjective PT WAS BEING SEEN IN HOSPITAL WHEN SHE BECAME UNRESPONSIVE BLOOD SUGAR 166 SHE WAS MILDLY HYPOTENSIVE HAD LEFT SIGHT ARM MOVEMENT LASTED ABOUT 10 MINUTES TOTAL/ NO CLEAR POST ICTAL PERIOD PRESENTATION CONSISTENT WITH METABOLIC SYNDROME/ INFECTION ESPECIALLY WITH HER RECENT ADMISSION FOR SEPSIS/ BACTEREMIA RECENT HX OF HYPOTENSION POSITIVE BLOOD CX STAPH PRODUCTIVE COUGH HYPOXIA SEVERE ANEMIA HX OF BLEEDING DIATHESIS NOW BEING TRANSFUSE PMH; HEMATURIA HX OF ORGANIC HD S/P TAVR HX OF AV STENOSIS HTN HFpEF DIASTOLIC DYSFUNCTION AFIB ON SOTALOL HYPERCOAGULABLE STATE HX OF DVT MORBID OBESITY 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 ANEMIA HYPONATREMIA ABX VANCO MEROPENAM DC PICC LINE POSSIBLE SOURCE OF INFECTION NEW ERNESTINA CATH ONCE BLOOD CX NEGATIVE AND FEVER RESOLVED ANF LEUKOCYTOSIS RESOLVES START PT CURRENT GETTING A ERNESTINA CATH may dc home HOME IV ABX FOLLOWUP IN 1 WEEK vital signs Vital Sign Date Time Temp Pulse Resp B/P (MAP) Pulse Ox O2 Delivery O2 Flow Rate FiO2 01/23/25 05:00 97.5 68 20 96/72 (80) 98 97.5 01/22/25 20:10 Room Air* 0 21 Total Intake and Output 01/22/25 01/22/25 01/23/25 15:00 23:00 07:00 Intake Total 480 ml 1100 ml 500 ml Balance 480 ml 1100 ml 500 ml medications Current Medications Medications Dose Ordered Sig/Taran Route Start Time Stop Time Status Last Admin Dose Admin Vancomycin HCl 0 ml @ 0 mls/hr UD IV 01/16/25 01:30 Carbidopa/Levodopa 2 tab HS PO 01/16/25 22:00 01/22/25 22:24 2 TAB Tramadol HCl 50 mg QID PRN PO 01/16/25 01:45 01/23/25 04:31 50 MG Sotalol HCl 40 mg DAILY PO 01/17/25 11:58 Hold Pantoprazole Sodium 40 mg DAILY@0600 PO 01/20/25 06:00 01/23/25 05:53 40 MG Levothyroxine Sodium 50 mcg QAM@0600 PO 01/20/25 06:00 01/23/25 05:53 50 MCG Metoclopramide HCl 5 mg Q8HR IV 01/20/25 22:00 01/23/25 05:53 5 MG Ertapenem 1 gm/ Sodium Chloride 50 ml @ 100 mls/hr DAILY IV 01/23/25 10:00 Future hold laboratory and microbiology Laboratory Tests 01/23/25 04:48 Test 01/23/25 04:48 Range/Units Serum Glucose 83 74-106 mg/dL Problem List PT WAS BEING SEEN IN HOSPITAL WHEN SHE BECAME UNRESPONSIVE BLOOD SUGAR 166 SHE WAS MILDLY HYPOTENSIVE HAD LEFT SIGHT ARM MOVEMENT LASTED ABOUT 10 MINUTES TOTAL/ NO CLEAR POST ICTAL PERIOD PRESENTATION CONSISTENT WITH METABOLIC SYNDROME/ INFECTION ESPECIALLY WITH HER RECENT ADMISSION FOR SEPSIS/ BACTEREMIA RECENT HX OF HYPOTENSION POSITIVE BLOOD CX STAPH PRODUCTIVE COUGH HYPOXIA SEVERE ANEMIA HX OF BLEEDING DIATHESIS NOW BEING TRANSFUSE PMH; HEMATURIA HX OF ORGANIC HD S/P TAVR HX OF AV STENOSIS HTN HFpEF DIASTOLIC DYSFUNCTION AFIB ON SOTALOL HYPERCOAGULABLE STATE HX OF DVT MORBID OBESITY 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 ANEMIA HYPONATREMIA HYPOKALEMIA LEUKOCYTOSIS Assessment/Plan ABX VANCO MEROPENAM NEW ERNESTINA CATH ONCE BLOOD CX NEGATIVE AND FEVER RESOLVED ANF LEUKOCYTOSIS RESOLVES START PT BLOOD CX UCX TRANSFUSE 2 UNITS S/P TRANSFUSION HGH IS >8mg/dl HOLD OFF ON DISCONTINUING ERNESTINA CATH ABX PT TRANSFUSE 2 UNITS CORRECT K+ WITH 80 meq OF K Dietary Evaluation Review Comments: Check A1C Monitor PO intakes, offer Devin BID Iron supplementation Encourage PT and promoting physical activties Expected Outcomes/Goals: gradual wt loss and healed wound Plan discussed with: Patient Critical Care Time(min): 35 MONTRELL RANKIN MD Jan 23, 2025 08:47
--- NOTE | 2025-01-23 10:22 | DVHPNRES ---
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 No acute overnight events. She denies any chest pain, shortness of breath, fever, pain at the ulcer site, abdominal pain, nausea, vomiting, constipation or any other complaints today. Objective vital signs Vital Sign Date Time Temp Pulse Resp B/P (MAP) Pulse Ox O2 Delivery O2 Flow Rate FiO2 01/23/25 08:10 Room Air* 0 21 01/23/25 05:00 97.5 68 20 96/72 (80) 98 97.5 Total Intake and Output 01/22/25 01/22/25 01/23/25 15:00 23:00 07:00 Intake Total 480 ml 1100 ml 500 ml Balance 480 ml 1100 ml 500 ml medications Current Medications Medications Dose Ordered Sig/Taran Route Start Time Stop Time Status Last Admin Dose Admin Vancomycin HCl 0 ml @ 0 mls/hr UD IV 01/16/25 01:30 Carbidopa/Levodopa 2 tab HS PO 01/16/25 22:00 01/22/25 22:24 2 TAB Tramadol HCl 50 mg QID PRN PO 01/16/25 01:45 01/23/25 04:31 50 MG Sotalol HCl 40 mg DAILY PO 01/17/25 11:58 Hold Pantoprazole Sodium 40 mg DAILY@0600 PO 01/20/25 06:00 01/23/25 05:53 40 MG Levothyroxine Sodium 50 mcg QAM@0600 PO 01/20/25 06:00 01/23/25 05:53 50 MCG Metoclopramide HCl 5 mg Q8HR IV 01/20/25 22:00 01/23/25 05:53 5 MG Ertapenem 1 gm/ Sodium Chloride 50 ml @ 100 mls/hr DAILY IV 01/23/25 10:00 Potassium Chloride 100 ml @ 50 mls/hr Q2H IV 01/23/25 08:45 Hold Examination General Appearance: Alert, Oriented X3, Cooperative, obese, lying on bed HEENT: Atraumatic, Mucous membranes moist/pink Respiratory: Clear to auscultation, Normal air movement, No added sounds Cardiovascular: Regular rate, Normal S1, Normal S2, No murmurs Abdominal/ : Active bowel sounds, Soft, no distention, no tenderness Extremities: No edema, Normal pulses, No tenderness/swelling Skin: No Significant rash, except past surgical scars, sacral ulcer measuring 7x6 cm over right buttock, surrounded by erythematous rashes Neuro: Normal speech, sensorimotor deficits none Psych/Mental Status: Mental status NL, Mood NL Nurse was there as explosives operator during examination laboratory and microbiology Laboratory Tests 01/23/25 04:48 Test 01/23/25 04:48 Range/Units Serum Glucose 83 74-106 mg/dL Microbiology Date/Time Source Procedure Growth Status 01/19/25 16:03 Blood Blood Culture - Preliminary NO GROWTH AFTER 72 HOURS OF INCUBATION. Resulted 01/17/25 04:45 Sacrum Gram Stain - Final Resulted 01/17/25 04:45 Sacrum Wound Culture - Preliminary Resulted 01/16/25 12:16 Voided Urine Urine Culture - Final Presumptive Amaris albicans Complete Labs and/or images reviewed: Labs reviewed by me, Image(s) reviewed by me Problem List/Assessment/Plan Problem List/Assessment/Plan #Metabolic encephalopathy secondary to sepsis #Oklz-ld-ysgruuwq chronic brain microvascular ischemic changes #Mild global cerebral volume loss #Stroke ruled out #Ruled out cardiogenic syncope #History of parkinsonism Completed Head CT: No intracranial hemorrhage or mass effect. Tegk-zw-sdpzakke chronic microvascular ischemic changes.Mild global cerebral volume loss. Normal carotid Doppler Patient required telemetry initially during admission, no arrhythmias evidenced. Discontinued telemetry currently Continued Levodopa/ Carbidopa 2 tab hs #Sepsis due to possible complicated UTI / sacral ulcers #Decubitus sacral ulcer due with MDRO Pseudomonas - Present on admission #Rule out bacteremia #H/o UTI : Pseudomonas MDR #H/o multiple episodes of bacteremia due to staph Currently on adjusted IV antibiotic (Avycaz, previously on Ertapenem and vancomycin) Port-A-Cath management discussed with Dr. Cifuentes. He advised to do blood cultures and to keep it in place. Blood culture from Port-A-Cath sent, pending results. prelim neg IV antibiotic (Vancomycin) lock via Port-A-Cath catheter given, once Completed cultures: Peripheral Blood: Negative. Port-a-cath blood: preliminary neg. Urine: amaris. Sacral: MDRO Pseudomonas #Chronic heart failure with diastolic dysfunction, stable #Permanent atrial fibrillation (CHADS-VASc 5) - secondary hypercoagulability state #History of aortic stenosis - s/p TAVR Last echocardiogram completed on 12/31/2024: LVEF >55%, left and right atrial enlargement, mild TR and MR Sotalol discontinued due to hypotension. Discontinued apixaban and enoxaparin due to bleeding and anemia with transfusion needed. High risk of stroke #Severe Hypokalemia; resolved #Hypomagnesemia #QT prolongation on EKG - resolved #Hyponatremia Patient required telemetry initially during admission, no arrhythmias evidence. Discontinued telemetry currently Replenish electrolytes Avoid ondansetron, azithromycin and other QT prolonging drugs #Iron deficiency anemia #Bleeding decubitus sacral ulcers - Present on admission #Severe anemia due to bleeding - s/p multiple RBCs transfusion #Rule out GI bleed Required multiple RBC, total 3 units until 01/23/2025 Sacral ulcer was bleeding, controlled. Discontinued anticoagulation Blood transfusion if Hemoglobin below 7 PO iron #Chronic Hypothyroidism #Iatrogenic hyperthyroidism Patient's TSH 0.22, Free T4 2.37, Free T3 1.82. Interpret as iatrogenic hyperthyroidism. Reduced home dose from 75 mcg p.o. daily to levothyroxine 50 mcg p.o. daily Follow up with PCP GI prophylaxis: protonix DVT prophylaxis: SCDs Diet: Diabetic Goals of care discussed with the patient for more than 27 minutes: Full code status Case discussed with Dr. Alicia , patient and RN Plan discussed with: Patient, Other My Orders My Orders Orders - MARCELINA CHILDS RESIDENT Procedure Category Date Status Time * Band Master CONS 01/22/25 Transmitted Consult 14:39 Ertapenem Sod Inj PHA 01/23/25 In Process (Invanz) 10:00 Type And Screen BBK 01/23/25 In Process 06:43 Dietary Evaluation Review Comments: Check A1C Monitor PO intakes, offer Devin BID Iron supplementation Encourage PT and promoting physical activties Expected Outcomes/Goals: gradual wt loss and healed wound Date of Service: Jan 23, 2025 Billing Provider: SHERRILL ALICIA MD Common Visit Codes: [id number] INP/OBS CARE(HIGH) MARCELINA CHILDS RESIDENT Jan 23, 2025 10:21 MARÍA SKY RESIDENT Jan 25, 2025 07:00 SHERRILL ALICIA MD Jan 26, 2025 22:15
[2025-01-23] MEDS: ERTAPENEM SOD INJ 1 GM in SODIUM CHL 0.9% 50 ML IV SCH (10:36)
--- NOTE | 2025-01-23 14:42 | MEDREC ---
[facility] ASP Intervention Section I [facility] ASP Intervention: Review courses of therapy (SACRUM WOUND POSITIVE FOR PSEUDOMONAS AERUGINOSA MDRO CARBAPENEM RESISTANT - PLEASE CONSIDER ID CONSULT ) IGLESIA BAER PHARMACIST Jan 23, 2025 14:42
[2025-01-23] MEDS: CEFTAZIDIME-AVIBACTAM 2.5gm in D5W 100 ML IV SCH (18:46)
[2025-01-23] MEDS ORDERED: LORazepam 2MG/ML-1ML VIAL IV ONE (19:45)
[2025-01-23] MEDS ORDERED: LORazepam 2MG/ML-1ML VIAL IV PRN (19:45)
[2025-01-23] MEDS: CLOTRIMAZOLE 1 % CREAM 15GM TOP SCH (21:33)
[2025-01-23] MEDS ORDERED: cefTAZidime 1 GM in SODIUM CHL 0.9% 50 ML IV SCH (22:00)
[2025-01-24] VITALS (9 sets, daily range): BP systolic 78–136; BP diastolic 43–77; PULSE 64–109; RESP 15–20; TEMP 97.3–98.6; O2SAT 92–100
[2025-01-24 05:52] LABS: Hematocrit 32.3 % (36.0-46.0); Hemoglobin 10.9 g/dL (12.2-16.2); Mean Corpuscular Hemoglobin 28.5 pg (28.0-32.0); Mean Corpuscular Volume 84.1 fL (80.0-100.0)
[2025-01-24 05:54] LABS: Chloride 103 mmol/L (98-107); Potassium 4.1 mmol/L (3.5-5.1)
[2025-01-24 05:55] LABS: Anion Gap 7 (5-15); Carbon Dioxide 25 mmol/L (20-31)
[2025-01-24 06:00] LABS: BUN/Creatinine Ratio 37.0 (10.0-20.0); Blood Urea Nitrogen 27 mg/dL (9-23); Calcium 7.1 mg/dL (8.7-10.4); Glucose 89 mg/dL (74-106); Sodium 135 mmol/L (136-145)
[2025-01-24 07:02] LABS: Total Cells Counted 100.0 (100)
--- NOTE | 2025-01-24 12:52 | DVHPN2 ---
Progress Note - Dictate Date Seen: Jan 24, 2025 Medical Necessity Reason Pt with a Central, PICC or Fol: No Subjective PT WAS BEING SEEN IN HOSPITAL WHEN SHE BECAME UNRESPONSIVE BLOOD SUGAR 166 SHE WAS MILDLY HYPOTENSIVE HAD LEFT SIGHT ARM MOVEMENT LASTED ABOUT 10 MINUTES TOTAL/ NO CLEAR POST ICTAL PERIOD PRESENTATION CONSISTENT WITH METABOLIC SYNDROME/ INFECTION ESPECIALLY WITH HER RECENT ADMISSION FOR SEPSIS/ BACTEREMIA RECENT HX OF HYPOTENSION POSITIVE BLOOD CX STAPH PRODUCTIVE COUGH HYPOXIA SEVERE ANEMIA HX OF BLEEDING DIATHESIS NOW BEING TRANSFUSE PMH; HEMATURIA HX OF ORGANIC HD S/P TAVR HX OF AV STENOSIS HTN HFpEF DIASTOLIC DYSFUNCTION AFIB ON SOTALOL HYPERCOAGULABLE STATE HX OF DVT MORBID OBESITY 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 ANEMIA HYPONATREMIA ABX VANCO MEROPENAM DC PICC LINE POSSIBLE SOURCE OF INFECTION NEW ERNESTINA CATH ONCE BLOOD CX NEGATIVE AND FEVER RESOLVED ANF LEUKOCYTOSIS RESOLVES START PT CURRENT GETTING A ERNESTINA CATH may dc home HOME IV ABX FOLLOWUP IN 1 WEEK vital signs Vital Sign Date Time Temp Pulse Resp B/P (MAP) Pulse Ox O2 Delivery O2 Flow Rate FiO2 01/24/25 08:00 81 20 Room Air* 0 21 01/24/25 07:25 97.6 130/77 (94) 92 97.6 Total Intake and Output 01/23/25 01/23/25 01/24/25 15:00 23:00 07:00 Intake Total 50 ml 860 ml 950 ml Output Total 675 ml Balance 50 ml 185 ml 950 ml medications Current Medications Medications Dose Ordered Sig/Taran Route Start Time Stop Time Status Last Admin Dose Admin Carbidopa/Levodopa 2 tab HS PO 01/16/25 22:00 01/23/25 21:32 2 TAB Tramadol HCl 50 mg QID PRN PO 01/16/25 01:45 01/23/25 21:50 50 MG Sotalol HCl 40 mg DAILY PO 01/17/25 11:58 Hold Pantoprazole Sodium 40 mg DAILY@0600 PO 01/20/25 06:00 01/24/25 05:18 40 MG Levothyroxine Sodium 50 mcg QAM@0600 PO 01/20/25 06:00 01/24/25 05:18 50 MCG Metoclopramide HCl 5 mg Q8HR IV 01/20/25 22:00 01/24/25 05:18 5 MG Ceftazidime Sodium 2.5 gm/ Dextrose 100 ml @ 50 mls/hr Q8H IV 01/23/25 18:00 01/24/25 09:34 50 MLS/HR Clotrimazole 1 applic Q12HR TOP 01/23/25 22:00 01/23/25 21:33 1 APPLIC Lorazepam 0.5 mg Q8HP PRN IV 01/23/25 19:45 UNV laboratory and microbiology Laboratory Tests 01/24/25 05:10 Test 01/24/25 05:10 Range/Units Serum Glucose 89 74-106 mg/dL Problem List PT WAS BEING SEEN IN HOSPITAL WHEN SHE BECAME UNRESPONSIVE BLOOD SUGAR 166 SHE WAS MILDLY HYPOTENSIVE HAD LEFT SIGHT ARM MOVEMENT LASTED ABOUT 10 MINUTES TOTAL/ NO CLEAR POST ICTAL PERIOD PRESENTATION CONSISTENT WITH METABOLIC SYNDROME/ INFECTION ESPECIALLY WITH HER RECENT ADMISSION FOR SEPSIS/ BACTEREMIA RECENT HX OF HYPOTENSION POSITIVE BLOOD CX STAPH PRODUCTIVE COUGH HYPOXIA SEVERE ANEMIA HX OF BLEEDING DIATHESIS NOW BEING TRANSFUSE PMH; HEMATURIA HX OF ORGANIC HD S/P TAVR HX OF AV STENOSIS HTN HFpEF DIASTOLIC DYSFUNCTION AFIB ON SOTALOL HYPERCOAGULABLE STATE HX OF DVT MORBID OBESITY 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 ANEMIA HYPONATREMIA HYPOKALEMIA LEUKOCYTOSIS Assessment/Plan ABX VANCO MEROPENAM NEW ERNESTINA CATH ONCE BLOOD CX NEGATIVE AND FEVER RESOLVED ANF LEUKOCYTOSIS RESOLVES START PT BLOOD CX UCX TRANSFUSE 2 UNITS S/P TRANSFUSION HGH IS >8mg/dl HOLD OFF ON DISCONTINUING ERNESTINA CATH ABX PT TRANSFUSE 2 UNITS CORRECT K+ WITH 80 meq OF K DC HOME K CORRECTED S/P 2 UNITS PRBC Dietary Evaluation Review Comments: Check A1C Monitor PO intakes, offer Devin BID Iron supplementation Encourage PT and promoting physical activties Expected Outcomes/Goals: gradual wt loss and healed wound Plan discussed with: Patient, Daughter, Son MONTRELL RANKIN MD Jan 24, 2025 12:52
--- NOTE | 2025-01-24 14:30 | DVHPNRES ---
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 No acute overnight events. She denies any chest pain, shortness of breath, fever, pain at the ulcer site, abdominal pain, nausea, vomiting, constipation or any other complaints today. Objective vital signs Vital Sign Date Time Temp Pulse Resp B/P (MAP) Pulse Ox O2 Delivery O2 Flow Rate FiO2 01/24/25 13:00 98.6 109 19 121/43 (69) 100 98.6 01/24/25 10:00 Room Air* 0 21 Total Intake and Output 01/23/25 01/23/25 01/24/25 15:00 23:00 07:00 Intake Total 50 ml 860 ml 950 ml Output Total 675 ml Balance 50 ml 185 ml 950 ml medications Current Medications Medications Dose Ordered Sig/Taran Route Start Time Stop Time Status Last Admin Dose Admin Carbidopa/Levodopa 2 tab HS PO 01/16/25 22:00 01/23/25 21:32 2 TAB Tramadol HCl 50 mg QID PRN PO 01/16/25 01:45 01/23/25 21:50 50 MG Sotalol HCl 40 mg DAILY PO 01/17/25 11:58 Hold Pantoprazole Sodium 40 mg DAILY@0600 PO 01/20/25 06:00 01/24/25 05:18 40 MG Levothyroxine Sodium 50 mcg QAM@0600 PO 01/20/25 06:00 01/24/25 05:18 50 MCG Metoclopramide HCl 5 mg Q8HR IV 01/20/25 22:00 01/24/25 05:18 5 MG Ceftazidime Sodium 2.5 gm/ Dextrose 100 ml @ 50 mls/hr Q8H IV 01/23/25 18:00 01/24/25 09:34 50 MLS/HR Clotrimazole 1 applic Q12HR TOP 01/23/25 22:00 01/23/25 21:33 1 APPLIC Lorazepam 0.5 mg Q8HP PRN IV 01/23/25 19:45 UNV Examination General Appearance: Alert, Oriented X3, Cooperative, obese, lying on bed HEENT: Atraumatic, Mucous membranes moist/pink Respiratory: Clear to auscultation, Normal air movement, No added sounds Cardiovascular: Regular rate, Normal S1, Normal S2, No murmurs Abdominal/ : Active bowel sounds, Soft, no distention, no tenderness Digital rectal exam: No active bleeding, no hemorrhoid, stool sent for FOBT Extremities: No edema, Normal pulses, No tenderness/swelling Skin: No Significant rash, except past surgical scars, sacral ulcer measuring 7x6 cm over right buttock, surrounded by erythematous rashes. Right-sided back of the thigh has 4x4 cm ulcers and surrounding area is erythematous. Neuro: Normal speech, sensorimotor deficits none Psych/Mental Status: Mental status NL, Mood NL Nurse was there as land manager during examination laboratory and microbiology Laboratory Tests 01/24/25 05:10 Test 01/24/25 05:10 Range/Units Serum Glucose 89 74-106 mg/dL Microbiology Date/Time Source Procedure Growth Status 01/19/25 16:03 Blood Blood Culture - Preliminary NO GROWTH AFTER 72 HOURS OF INCUBATION. Resulted 01/17/25 04:45 Sacrum Gram Stain - Final Resulted 01/17/25 04:45 Wound Culture - Preliminary Pseudomonas aeruginosa - MDRO Pseudomonas aeruginosa Presumptive Amaris albicans Resulted 01/16/25 12:16 Voided Urine Urine Culture - Final Presumptive Amaris albicans Complete Labs and/or images reviewed: Labs reviewed by me, Image(s) reviewed by me Problem List/Assessment/Plan Problem List/Assessment/Plan #Metabolic encephalopathy secondary to sepsis #Moxa-nd-rdlamahn chronic brain microvascular ischemic changes #Mild global cerebral volume loss #Stroke ruled out #Ruled out cardiogenic syncope #History of parkinsonism Completed Head CT: No intracranial hemorrhage or mass effect. Aksr-bv-bqqndoyn chronic microvascular ischemic changes.Mild global cerebral volume loss. Normal carotid Doppler Patient required telemetry initially during admission, no arrhythmias evidenced. Discontinued telemetry currently Continued Levodopa/ Carbidopa 2 tab hs #Sepsis due to possible complicated UTI / sacral ulcers #Decubitus sacral ulcer due with MDRO Pseudomonas - Present on admission #Rule out bacteremia #H/o UTI : Pseudomonas MDR #H/o multiple episodes of bacteremia due to staph Currently on adjusted IV antibiotic (Avycaz, previously on Ertapenem and vancomycin) Port-A-Cath management discussed with Dr. Cifuentes. He advised to do blood cultures and to keep it in place. Blood culture from Port-A-Cath sent, pending results. prelim neg IV antibiotic (Vancomycin) lock via Port-A-Cath catheter given, once Completed cultures: Peripheral Blood: Negative. Port-a-cath blood: preliminary neg. Urine: amaris. Sacral: MDRO Pseudomonas Consulted surgical services asst to evaluate sacral wound #Chronic heart failure with diastolic dysfunction, stable #Permanent atrial fibrillation (CHADS-VASc 5) - secondary hypercoagulability state #History of aortic stenosis - s/p TAVR Last echocardiogram completed on 12/31/2024: LVEF >55%, left and right atrial enlargement, mild TR and MR Sotalol discontinued due to hypotension. Discontinued apixaban and enoxaparin due to bleeding and anemia with transfusion needed. High risk of stroke #Severe Hypokalemia; resolved #Hypomagnesemia #QT prolongation on EKG - resolved #Hyponatremia Patient required telemetry initially during admission, no arrhythmias evidence. Discontinued telemetry currently Replenish electrolytes Avoid ondansetron, azithromycin and other QT prolonging drugs #Iron deficiency anemia #Bleeding decubitus sacral ulcers - Present on admission #Severe anemia due to bleeding - s/p multiple RBCs transfusion #Probable GI bleed Required multiple RBC, total 3 units until 01/23/2025 Sacral ulcer was bleeding, controlled. Discontinued anticoagulation Blood transfusion if Hemoglobin below 7 PO iron Completed rectal exam which showed positive stool occult blood Consulted GI specialist due to severe anemia with requirement of multiple RBC transfusions and positive stool occult blood #Chronic Hypothyroidism #Iatrogenic hyperthyroidism Patient's TSH 0.22, Free T4 2.37, Free T3 1.82. Interpret as iatrogenic hyperthyroidism. Reduced home dose from 75 mcg p.o. daily to levothyroxine 50 mcg p.o. daily Follow up with PCP GI prophylaxis: protonix DVT prophylaxis: SCDs Diet: Diabetic Goals of care discussed with the patient for more than 27 minutes: Full code status Case discussed with Dr. Alicia , patient and RN Plan discussed with: Patient, Other (RN) My Orders My Orders Orders - MARCELINA CHILDS RESIDENT Procedure Category Date Status Time Ceftazidime-Avibactam PHA 01/23/25 In Process 2.5gm (Avycaz 2.5g 18:00 Clotrimazole 1% PHA 01/23/25 In Process Topical Cream 22:00 * Surgical Consult CONS 01/24/25 Transmitted Dietary Evaluation Review Comments: Check A1C Monitor PO intakes, offer Devin BID Iron supplementation Encourage PT and promoting physical activties Expected Outcomes/Goals: gradual wt loss and healed wound Date of Service: Jan 24, 2025 Billing Provider: SEHRRILL ALICIA MD Common Visit Codes: [id number] INP/OBS CARE(HIGH) MARCELINA CHILDS RESIDENT Jan 24, 2025 14:30 MARÍA SKY RESIDENT Jan 25, 2025 07:04 SHERRILL ALICIA MD Jan 26, 2025 22:32
--- NOTE | 2025-01-24 16:58 | DVHINCON2 ---
Consultation - Surgical Date Seen: Jan 24, 2025 Referring Physician Reason for Consultation Decubitus ulcer History of Present Illness History of Present Illness Mrs. Reyes is a 79-year-old female who was admitted to the hospital on January 16. Patient was at her obstetrics technician when she had a syncopal episode and was brought to the ED. Admission diagnosis is sepsis due to UTI. To day surgery was consulted due to decubitus ulcer. Wound culture from 01/16, grew Pseudomonas MDRO, patient is currently on Avicaz. Patient has been receiving local wound care by wound nurse, although patient is not very cooperative with treatment. Patient currently has no complaints. Denies fevers, chills, changes in urinary or stooling habits. Past Medical/Surgical History Past Medical/Surgical History PMHx:iron-deficiency anemia, recurrent renal stone, sacral ulcer, ESBL UTI, hiatal hernia, horseshoe kidney, ovarian cyst, atrial fibrillation, heart failure with preserved ejection fraction, parkinsonism PSHx: Right knee surgery for ligament tear, portacath Family history: Prostatic cancer in brother, brain cancer in sister Social history: Denies smoking alcohol or illicit drugs Home medication: Sotalol, levothyroxine, Eliquis, Bumex, aspirin , metolazone, betamethasone cream Allergic history: Morphine, penicillin, TMP SMX, ceftriaxone Allergies and medications Allergies: Coded Allergies: Penicillins (Unverified Allergy, Severe, 03/16/15) Sulfa Antibiotics (Unverified Allergy, Severe, 03/16/15) Morphine (Verified Allergy, Intermediate, ALTERED, 01/31/18) PER PATIENT AND HER DAUGHTER SHE CAN NOT HAVE Ceftriaxone (Verified Allergy, Unknown, 01/31/18) COUGH AND CHILLS Home Meds Reported Medications Clotrimazole W/ Betamethasone (Clotrimazole/Betamethason 1-0.05 %) 1 Cre Cre, 1 CRE EX BID for 120 Days, #60 01/03/25 Metolazone (Metolazone) 5 Mg Tab, 3 TAB PO QWEEKLY for 84 Days, #36 01/03/25 Linaclotide Base (LINZESS) 290 Mcg Cap, 1 CAP PO DAILY for 30 Days, #30 01/03/25 Bumetanide (Bumex) 2 Mg Tab, 1 TAB PO DAILY for 90 Days, #90 12/31/24 Clobetasol Propionate (Clobetasol Propionate) 0.05 % Deepika, TOP 04/25/24 Ondansetron HCl (Ondansetron Hydrochloride) 4 Mg Tab, 1 TAB PO Q8HPRN 04/25/24 Sotalol Hcl (Sotalol Hcl) 80 Mg Tab, 0.5 TAB PO BID for 90 Days, #90 04/25/24 Apixaban Base (ELIQUIS) 2.5 Mg Tab, 2.5 MG PO BID, TAB 11/17/23 Esomeprazole Magnesium (Esomeprazole Magnesium Dr) 40 Mg Cap, 40 MG PO DAILY, CAP 11/03/23 Acetaminophen (8 Hour Arthritis Pain Rel) 650 Mg Tab, 650 MG PO TID for ARTHR ITIS 01/23/22 Betamethasone Dipropionate (Betamethasone Dipropionat) 0.05 % Cre, 1 APPLIC TOP DIRECTED PRN for ECZEMA RASH for 30 Days, #30 01/23/22 Levodopa W/Carbidopa (Sinemet) 10 /100 Tab, 2 TAB PO HS for TREMORS 01/23/22 Albuterol Sulfate (Albuterol Sulfate) 0.083 % Neb, 1 VIAL NEB Q6HR PRN for SHORTNESS OF BREATH 02/05/20 Fluticasone Propionate (Nasal) (Flonase Allergy Relief) 50 Mcg/Act Spr, 1 SPR NA BID PRN for ALLERGIES 02/05/20 Aspirin (ASPIRIN 81) 81 Mg Tab, 1 TAB PO DAILY for HEART ATTACK PREVENTION 02/05/20 Potassium Chloride (Potassium Chloride ER) 20 Meq Tab, 1 TAB PO BID for SUPPLEMENT for 90 Days, #180 02/05/20 Apremilast Base (Otezla) 30 Mg Tab, 1 TAB PO BID for ARTHRITIS 03/28/19 Tramadol HCl (Tramadol Hydrochloride) 50 Mg Tab, 1 TAB PO QID PRN for MODERATE PAIN (4-6 PAIN SCALE) 10/30/18 Albuterol Sulfate (VENTOLIN MDI) 90 Mcg Ih, 2 PUFF IN Q6HR PRN for SHORTNESS OF BREATH 04/21/18 Levothyroxine Sodium (Levothyroxine Sodium) 75 Mcg Tab, 1 TAB PO DAILY for HYPOTHYROIDISM, 5 Refills 03/17/15 Ropinirole Hydrochloride (Requip) 1 Mg Tab, 1 TAB PO HS for RESTLESS LEGS for 90 Days, #90 03/17/15 Review of systems Review of Systems: Not Done (See HPI) Examination Vital signs Vital Signs Date Time Temp Pulse Resp B/P (MAP) Pulse Ox O2 Delivery O2 Flow Rate FiO2 01/24/25 13:00 98.6 109 19 121/43 (69) 100 98.6 01/24/25 10:00 Room Air* 0 21 Medications Current Medications Medications (Trade) Dose Ordered Sig/Taran Route PRN Reason Start Time Stop Time Status Last Admin Ceftazidime/ Dextrose 1 gm/ Sodium Chloride 50 ml @ 16.667 mls/ hr Q8HR IV 01/23/25 22:00 01/23/25 15:41 DC Ceftazidime Sodium 2.5 gm/ Dextrose 100 ml @ 50 mls/hr Q8H IV 01/23/25 18:00 01/24/25 09:34 Clotrimazole (Lotrimin 1% Cream) 1 applic Q12HR TOP 01/23/25 22:00 01/23/25 21:33 Lorazepam (Ativan Inj) 0.5 mg Q8HP PRN IV ANXIETY 01/23/25 19:45 UNV Laboratory Labs Test 01/24/25 10:00 01/24/25 05:10 01/23/25 04:48 01/22/25 05:10 Range/Units Stool Occult Blood Positive Negative Stool Occult Blood Sample #3 Negative White Blood Count 12.0 H 4.4-10.8 10^3/uL Red Blood Count 3.84 L 4.0-5.20 10^6/uL Hemoglobin 10.9 #L 12.2-16.2 g/dL Hematocrit 32.3 #L 36.0-46.0 % Mean Corpuscular Volume 84.1 80.0-100.0 fL Mean Corpuscular Hemoglobin 28.5 28.0-32.0 pg Mean Corpuscular Hemoglobin Concent 33.9 32.0-36.0 g/dL Red Cell Distribution Width 17.1 H 11.8-14.3 % Platelet Count 218 140-450 10^3/uL Mean Platelet Volume 6.9 6.9-10.8 fL Neutrophils (%) (Auto) 37.0-80.0 % Lymphocytes (%) (Auto) 10.0-50.0 % Monocytes (%) (Auto) 0.0-12.0 % Basophils (%) (Auto) 0.0-2.0 % Neutrophils # (Auto) 1.6-8.6 10 ^3/uL Lymphocytes # (Auto) 0.4-5.4 10 ^3/uL Monocytes # (Auto) 0-1.3 10 ^3/uL Differential Total Cells Counted 100.0 100 Neutrophils % (Manual) 81 H 37.0-80.0 Band Neutrophils % (Manual) 1 Lymphocytes % (Manual) 10 10.0-50.0 Monocytes % (Manual) 5 0-12 Eosinophils % (Manual) 3 0-7 Basophils % (Manual) 0 0.0-2.0 Metamyelocytes % (manual) 0 Myelocytes % (Manual) 0 Promyelocytes % (Manual) 0 Blast Cells % (Manual) 0 Reactive Lymphocytes 0 Platelet Estimate Adequate Sodium Level 135 L 136-145 mmol/L Potassium Level 4.1 3.5-5.1 mmol/L Chloride Level 103 98-107 mmol/L Carbon Dioxide Level 25 20-31 mmol/L Anion Gap 7 5-15 Blood Urea Nitrogen 27 H 9-23 mg/dL Creatinine 0.73 0.550-1.02 mg/dL Glomerular Filtration Rate Calc 83 >90 mL/min BUN/Creatinine Ratio 37.0 H 10.0-20.0 Serum Glucose 89 74-106 mg/dL Calcium Level 7.1 L 8.7-10.4 mg/dL Random Vancomycin Level 20.4 H 5-10 ug/mL Eosinophils (%) (Auto) 4.2 0.0-7.0 % Eosinophils # (Auto) 0.4 0-0.8 10 ^3/uL Basophils # (Auto) 0 0-0.2 10 ^3/uL Nucleated Red Blood Cells 0.2 % Smudge Cells 3 /100 WBC Magnesium Level 2.2 1.6-2.6 mg/dL Test 01/21/25 05:44 01/18/25 11:05 01/18/25 09:50 01/16/25 12:16 Range/Units Polychromasia Slight Anisocytosis (manual) Slight Vancomycin Level Trough 45.8 *H 5-10 ug/mL Prothrombin Time 10.5 9.3-11.8 sec Prothrombin Time INR 0.99 0.9-1.15 Activated Partial Thromboplast Time 31.3 24.5-34.5 SEC Total Bilirubin 0.3 0.2-1.0 mg/dL Aspartate Amino Transferase (AST) 12 L 13-40 U/L Alanine Aminotransferase (ALT) < 9 7-40 U/L Alkaline Phosphatase 64 46-116 U/L Total Protein 4.7 L 5.7-8.2 g/dL Albumin 2.9 L 3.2-4.8 g/dL Urine Color Light-yellow Yellow Urine Clarity Clear Clear Urine pH 6.5 5.0-9.0 Urine Specific Pyatt 1.012 1.001-1.035 Urine Protein Negative Negative Urine Ketones Negative Negative Urine Blood Negative Negative /uL Urine Nitrite Negative Negative Urine Bilirubin Negative Negative Urine Urobilinogen Normal Negative mg/dL Urine Leukocyte Esterase 1+ Negative /uL Urine RBC <1 0 - 4 /hpf Urine Microscopic WBC 5 0-5 /HPF Urine Squamous Epithelial Cells Few <5 /hpf Urine Bacteria None seen None Seen /hpf Urine Glucose Normal Normal mg/dL Test 01/16/25 10:44 01/15/25 21:04 01/15/25 17:10 Range/Units Free Thyroxine (T4) Calculated 2.37 H 0.89-1.76 ng/dL Free Triiodothyronine (T3) pg/mL 1.82 L 2.3-4.2 pg/mL D-Dimer, Quantitative 0.48 0.0-0.49 mg/L FEU Iron Level 15 L 50-170 ug/dL Total Iron Binding Capacity 318 250-425 ug/dL Percent Iron Saturation 4.7 L 15-50 % Ferritin 18.4 10-291 ng/mL Troponin I High Sensitivity 14 </=34 ng/L B-Type Natriuretic Peptide 116.65 0-100 pg/mL Thyroid Stimulating Hormone (TSH) 0.22 L 0.55-4.78 uIU/mL Lactic Acid Level 0.8 0.4-2.0 mmol/L Microbiology Date/Time Source Procedure Growth Status 01/19/25 16:03 Blood Blood Culture - Preliminary NO GROWTH AFTER 72 HOURS OF INCUBATION. Resulted 01/17/25 04:45 Sacrum Gram Stain - Final Resulted 01/17/25 04:45 Wound Culture - Preliminary Pseudomonas aeruginosa - MDRO Pseudomonas aeruginosa Presumptive Leidy albicans Resulted 01/16/25 12:16 Voided Urine Urine Culture - Final Presumptive Leidy albicans Complete Examination: GENERAL:Normal, SKIN:Abnormal (Patchy areas of erythema and ecchymosis on bilateral forearms. Erythema on intertriginous areas throughout body. Right buttock/lower back/hip area with large patch of erythema, two areas of ulceration 2nd degree on the right buttock/hip area. No pus, no drainage, no necrosis, no crepitus. The 2 ulcerated areas are proximally 3 x 2 cm in diameter, and both are stage II) Problem List/Assessment/Plan Problems: (1) Stage II pressure ulcer of buttock Assessment and Plan Mrs. Paz is a 79-year-old female who has been admitted in the hospital since 01/16 due to sepsis from Pseudomonas UTI. Surgery consulted for stage II ulcers on the right buttock/hip area. Both ulcers are clean without signs of infection, drainage or pus. Ulcerated areas are surrounded by large patch of erythema. No surgery or debridement indicated at this time. Patient will continue to benefit from local wound care by Wound R.N.. Recommendations 1. Keep area clean and dry 2. Erythematous areas may benefit from zinc oxide cream 3. Consider Medi honey for ulcerated areas 4. Frequent off loading 5. We will sign off, please call with any questions or concerns Plan discussed with Plan discussed with: Patient Visit Coding Surgery Date of Service if different f: Jan 24, 2025 Billing Provider: MARIO BOLANOS MD Surgery Visit Codes: 31027 - INP CONSULT <80 MIN MARIO BOLANOS MD Jan 24, 2025 16:58
[2025-01-25] VITALS (8 sets, daily range): BP systolic 98–130; BP diastolic 48–92; PULSE 64–101; RESP 16–18; TEMP 97.4–97.9; O2SAT 93–99
[2025-01-25 05:54] LABS: Hematocrit 38.5 % (36.0-46.0); Hemoglobin 12.8 g/dL (12.2-16.2); Mean Corpuscular Hemoglobin 28.2 pg (28.0-32.0); Mean Corpuscular Volume 84.8 fL (80.0-100.0)
[2025-01-25 05:56] LABS: Potassium 4.4 mmol/L (3.5-5.1)
[2025-01-25 05:57] LABS: Anion Gap 8 (5-15); Carbon Dioxide 25 mmol/L (20-31)
[2025-01-25 06:02] LABS: BUN/Creatinine Ratio 25.5 (10.0-20.0)
[2025-01-25 06:07] LABS: Blood Urea Nitrogen 24 mg/dL (9-23); Chloride 95 mmol/L (98-107); Glucose 120 mg/dL (74-106); Sodium 128 mmol/L (136-145)
[2025-01-25 06:16] LABS: Calcium 8.9 mg/dL (8.7-10.4)
[2025-01-25 06:37] LABS: Total Cells Counted 100.0 (100)
[2025-01-25] MEDS: ZINC OXIDE 20 % OINT 30GM TOP ONE (08:00)
[2025-01-25 09:38] LABS: Alkaline Phosphatase 103 U/L (46-116)
[2025-01-25 09:39] LABS: Anion Gap 10 (5-15); BUN/Creatinine Ratio 25.3 (10.0-20.0); Bilirubin, Total 0.4 mg/dL (0.2-1.0); Blood Urea Nitrogen 23 mg/dL (9-23); Calcium 9.0 mg/dL (8.7-10.4); Carbon Dioxide 23 mmol/L (20-31); Potassium 4.4 mmol/L (3.5-5.1)
[2025-01-25 09:42] LABS: Chloride 96 mmol/L (98-107); Glucose 122 mg/dL (74-106); Sodium 129 mmol/L (136-145)
[2025-01-25 09:43] LABS: Alanine Aminotransferase < 9 U/L (7-40); Albumin 3.1 g/dL (3.2-4.8); Total Protein 5.5 g/dL (5.7-8.2)
--- NOTE | 2025-01-25 10:03 | DVHPN2 ---
Progress Note - Dictate Date Seen: Jan 25, 2025 Medical Necessity Reason Pt with a Central, PICC or Fol: No Subjective PT WAS BEING SEEN IN HOSPITAL WHEN SHE BECAME UNRESPONSIVE BLOOD SUGAR 166 SHE WAS MILDLY HYPOTENSIVE HAD LEFT SIGHT ARM MOVEMENT LASTED ABOUT 10 MINUTES TOTAL/ NO CLEAR POST ICTAL PERIOD PRESENTATION CONSISTENT WITH METABOLIC SYNDROME/ INFECTION ESPECIALLY WITH HER RECENT ADMISSION FOR SEPSIS/ BACTEREMIA RECENT HX OF HYPOTENSION POSITIVE BLOOD CX STAPH PRODUCTIVE COUGH HYPOXIA SEVERE ANEMIA HX OF BLEEDING DIATHESIS NOW BEING TRANSFUSE PMH; HEMATURIA HX OF ORGANIC HD S/P TAVR HX OF AV STENOSIS HTN HFpEF DIASTOLIC DYSFUNCTION AFIB ON SOTALOL HYPERCOAGULABLE STATE HX OF DVT MORBID OBESITY 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 ANEMIA HYPONATREMIA ABX VANCO MEROPENAM DC PICC LINE POSSIBLE SOURCE OF INFECTION NEW ERNESTINA CATH ONCE BLOOD CX NEGATIVE AND FEVER RESOLVED ANF LEUKOCYTOSIS RESOLVES START PT CURRENT GETTING A ERNESTINA CATH may dc home HOME IV ABX FOLLOWUP IN 1 WEEK vital signs Vital Sign Date Time Temp Pulse Resp B/P (MAP) Pulse Ox O2 Delivery O2 Flow Rate FiO2 01/25/25 09:00 97.9 64 18 130/72 (91) 97 97.9 01/24/25 20:00 Room Air* 0 21 Total Intake and Output 01/24/25 01/24/25 01/25/25 15:00 23:00 07:00 Intake Total 240 ml 240 ml Balance 240 ml 240 ml medications Current Medications Medications Dose Ordered Sig/Taran Route Start Time Stop Time Status Last Admin Dose Admin Carbidopa/Levodopa 2 tab HS PO 01/16/25 22:00 01/24/25 21:01 2 TAB Tramadol HCl 50 mg QID PRN PO 01/16/25 01:45 01/25/25 05:01 50 MG Sotalol HCl 40 mg DAILY PO 01/17/25 11:58 Hold Levothyroxine Sodium 50 mcg QAM@0600 PO 01/20/25 06:00 01/25/25 05:01 50 MCG Metoclopramide HCl 5 mg Q8HR IV 01/20/25 22:00 01/25/25 05:01 5 MG Ceftazidime Sodium 2.5 gm/ Dextrose 100 ml @ 50 mls/hr Q8H IV 01/23/25 18:00 01/25/25 00:33 50 MLS/HR Clotrimazole 1 applic Q12HR TOP 01/23/25 22:00 01/24/25 21:08 1 APPLIC Lorazepam 0.5 mg Q8HP PRN IV 01/23/25 19:45 UNV Ferrous Sulfate 325 mg DAILY PO 01/25/25 10:00 Pantoprazole Sodium 40 mg BID@0600,1700 PO 01/25/25 17:00 Multi-Ingred Cream/Lotion/Oil/ Oint 1 applic Q6HR TOP 01/25/25 12:00 laboratory and microbiology Laboratory Tests 01/25/25 04:51 Test 01/25/25 04:51 Range/Units Serum Glucose 122 H 74-106 mg/dL Problem List PT WAS BEING SEEN IN HOSPITAL WHEN SHE BECAME UNRESPONSIVE BLOOD SUGAR 166 SHE WAS MILDLY HYPOTENSIVE HAD LEFT SIGHT ARM MOVEMENT LASTED ABOUT 10 MINUTES TOTAL/ NO CLEAR POST ICTAL PERIOD PRESENTATION CONSISTENT WITH METABOLIC SYNDROME/ INFECTION ESPECIALLY WITH HER RECENT ADMISSION FOR SEPSIS/ BACTEREMIA RECENT HX OF HYPOTENSION POSITIVE BLOOD CX STAPH PRODUCTIVE COUGH HYPOXIA SEVERE ANEMIA HX OF BLEEDING DIATHESIS NOW BEING TRANSFUSE PMH; HEMATURIA HX OF ORGANIC HD S/P TAVR HX OF AV STENOSIS HTN HFpEF DIASTOLIC DYSFUNCTION AFIB ON SOTALOL HYPERCOAGULABLE STATE HX OF DVT MORBID OBESITY 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 ANEMIA HYPONATREMIA HYPOKALEMIA LEUKOCYTOSIS Assessment/Plan ABX VANCO MEROPENAM NEW ERNESTINA CATH ONCE BLOOD CX NEGATIVE AND FEVER RESOLVED ANF LEUKOCYTOSIS RESOLVES START PT BLOOD CX UCX TRANSFUSE 2 UNITS S/P TRANSFUSION HGH IS >8mg/dl HOLD OFF ON DISCONTINUING ERNESTINA CATH ABX PT TRANSFUSE 2 UNITS CORRECT K+ WITH 80 meq OF K DC HOME K CORRECTED S/P 2 UNITS PRBC check ua MONITOR HYPONATREMIA FLUID RESTRICTION Dietary Evaluation Review Comments: Check A1C Monitor PO intakes, offer Devin BID Iron supplementation Encourage PT and promoting physical activties Expected Outcomes/Goals: gradual wt loss and healed wound Plan discussed with: Patient MONTRELL RANKIN MD Jan 25, 2025 10:02
[2025-01-25] MEDS: FERROUS SULFATE 325mg EC TAB PO SCH (10:24)
[2025-01-25] MEDS: ACETAMINOPHEN 325 MG TAB PO PRN (11:38)
[2025-01-25] MEDS: ZINC OXIDE 20 % OINT 30GM TOP SCH (12:51)
--- NOTE | 2025-01-25 12:51 | DVHPNRES ---
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 No acute overnight events. She denies any chest pain, shortness of breath, fever, pain at the ulcer site, abdominal pain, nausea, vomiting, constipation or any other complaints today. Objective vital signs Vital Sign Date Time Temp Pulse Resp B/P (MAP) Pulse Ox O2 Delivery O2 Flow Rate FiO2 01/25/25 09:00 97.9 64 18 130/72 (91) 97 97.9 01/24/25 20:00 Room Air* 0 21 Total Intake and Output 01/24/25 01/24/25 01/25/25 14:59 22:59 06:59 Intake Total 240 ml 240 ml Balance 240 ml 240 ml medications Current Medications Medications Dose Ordered Sig/Taran Route Start Time Stop Time Status Last Admin Dose Admin Carbidopa/Levodopa 2 tab HS PO 01/16/25 22:00 01/24/25 21:01 2 TAB Tramadol HCl 50 mg QID PRN PO 01/16/25 01:45 01/25/25 05:01 50 MG Sotalol HCl 40 mg DAILY PO 01/17/25 11:58 Hold Levothyroxine Sodium 50 mcg QAM@0600 PO 01/20/25 06:00 01/25/25 05:01 50 MCG Metoclopramide HCl 5 mg Q8HR IV 01/20/25 22:00 01/25/25 05:01 5 MG Ceftazidime Sodium 2.5 gm/ Dextrose 100 ml @ 50 mls/hr Q8H IV 01/23/25 18:00 01/25/25 10:24 50 MLS/HR Clotrimazole 1 applic Q12HR TOP 01/23/25 22:00 01/24/25 21:08 1 APPLIC Lorazepam 0.5 mg Q8HP PRN IV 01/23/25 19:45 UNV Ferrous Sulfate 325 mg DAILY PO 01/25/25 10:00 01/25/25 10:24 325 MG Pantoprazole Sodium 40 mg BID@0600,1700 PO 01/25/25 17:00 Multi-Ingred Cream/Lotion/Oil/ Oint 1 applic Q6HR TOP 01/25/25 12:00 Acetaminophen 650 mg Q4HP PRN PO 01/25/25 10:45 01/25/25 11:38 650 MG Examination General Appearance: Alert, Oriented X3, Cooperative, obese, lying on bed HEENT: Atraumatic, Mucous membranes moist/pink Respiratory: Clear to auscultation, Normal air movement, No added sounds Cardiovascular: Regular rate, Normal S1, Normal S2, No murmurs Abdominal/ : Active bowel sounds, Soft, no distention, no tenderness Digital rectal exam: No active bleeding, no hemorrhoid, stool sent for FOBT Extremities: No edema, Normal pulses, No tenderness/swelling Skin: No Significant rash, except past surgical scars, sacral ulcer measuring 7x6 cm over right buttock, surrounded by erythematous rashes. Right-sided back of the thigh has 4x4 cm ulcers and surrounding area is erythematous. Neuro: Normal speech, sensorimotor deficits none Psych/Mental Status: Mental status NL, Mood NL Nurse was there as steam and power supervisor during examination laboratory and microbiology Laboratory Tests 01/25/25 04:51 Test 01/25/25 04:51 Range/Units Serum Glucose 122 H 74-106 mg/dL Microbiology Date/Time Source Procedure Growth Status 01/19/25 16:03 Blood Blood Culture - Final NO GROWTH AFTER 5 DAYS OF INCUBATION. Complete 01/17/25 04:45 Sacrum Gram Stain - Final Resulted 01/17/25 04:45 Wound Culture - Preliminary Pseudomonas aeruginosa - MDRO Pseudomonas aeruginosa Presumptive Amaris albicans Resulted 01/16/25 12:16 Voided Urine Urine Culture - Final Presumptive Amaris albicans Complete Problem List/Assessment/Plan Problem List/Assessment/Plan #Metabolic encephalopathy secondary to sepsis #[id number] chronic brain microvascular ischemic changes #Mild global cerebral volume loss #Stroke ruled out #Ruled out cardiogenic syncope #History of parkinsonism Completed Head CT: No intracranial hemorrhage or mass effect. [id number] chronic microvascular ischemic changes.Mild global cerebral volume loss. Normal carotid Doppler Patient required telemetry initially during admission, no arrhythmias evidenced. Discontinued telemetry currently Continued Levodopa/ Carbidopa 2 tab hs #Sepsis due to possible complicated UTI / sacral ulcers #Decubitus sacral ulcer due with MDRO Pseudomonas - Present on admission #Rule out bacteremia #H/o UTI : Pseudomonas MDR #H/o multiple episodes of bacteremia due to staph Currently on adjusted IV antibiotic (Avycaz, previously on Ertapenem and vancomycin) Port-A-Cath management discussed with Dr. Cifuentes. He advised to do blood cultures and to keep it in place. Blood culture from Port-A-Cath sent, pending results. prelim neg Antibiotic (Vancomycin) lock via Port-A-Cath catheter given, once Completed cultures: Peripheral Blood: Negative. Port-a-cath blood: preliminary neg. Urine: amaris. Sacral: MDRO Pseudomonas Consulted surgical scrub technician to evaluate sacral wound, no surgical debridement of the wound not indicated now. Conservative management (keep area clean and dry, Zinc oxide cream on erythematous areas, Medi honey was recommended for the ulcer, however, patient refused). hospitality services manager consulted, arranging home health to continue IV antibiotics for two weeks. #Chronic heart failure with diastolic dysfunction, stable #Permanent atrial fibrillation (CHADS-VASc 5) - secondary hypercoagulability state #History of aortic stenosis - s/p TAVR Last echocardiogram completed on 12/31/2024: LVEF >55%, left and right atrial enlargement, mild TR and MR Sotalol discontinued due to hypotension. Discontinued apixaban and enoxaparin due to bleeding and anemia with transfusion needed. High risk of stroke #Severe Hypokalemia; resolved #Hypomagnesemia #QT prolongation on EKG - resolved #Hyponatremia Patient required telemetry initially during admission, no arrhythmias evidence. Discontinued telemetry currently Replenish electrolytes Avoid ondansetron, azithromycin and other QT prolonging drugs #Iron deficiency anemia #Bleeding decubitus sacral ulcers - Present on admission #Severe anemia due to bleeding - s/p multiple RBCs transfusion #Probable GI bleed Required multiple RBC, total 3 units until 01/23/2025 Sacral ulcer was bleeding, controlled. Discontinued anticoagulation Blood transfusion if Hemoglobin below 7 PO iron Completed rectal exam which showed positive stool occult blood Consulted GI specialist due to severe anemia with requirement of multiple RBC transfusions and positive stool occult blood #Chronic Hypothyroidism #Iatrogenic hyperthyroidism Patient's TSH 0.22, Free T4 2.37, Free T3 1.82. Interpret as iatrogenic hyperthyroidism. Reduced home dose from 75 mcg p.o. daily to levothyroxine 50 mcg p.o. daily Follow up with PCP GI prophylaxis: protonix DVT prophylaxis: SCDs Diet: Diabetic Goals of care discussed with the patient for more than 27 minutes: Full code status Case discussed with Dr. Alicia , patient and RN: Sepsis secondary to decubitus ulcer present on admission with Acinetobacter MDRO under adjusted IV antibiotics (Avycaz), discharge planning underway with home health with this IV antibiotic for at least two weeks. Patient required multiple RBC transfusion probably secondary to decubitus ulcer bleeding and also presents positive fecal occult blood, consulted GI to evaluate endoscopies as inpatient outpatient. Patient has poor prognosis Plan discussed with: Patient, Other (RN) My Orders My Orders Orders - MARCELINA CHILDS RESIDENT Procedure Category Date Status Time * Surgical Consult CONS 01/24/25 Transmitted * Gi Dvh Wash Helper CONS 01/24/25 Transmitted 18:33 Zinc Oxide 20% PHA 01/25/25 In Process 12:00 Dietary Evaluation Review Comments: Check A1C Monitor PO intakes, offer Devin BID Iron supplementation Encourage PT and promoting physical activties Expected Outcomes/Goals: gradual wt loss and healed wound MARCELINA CHILDS RESIDENT Jan 25, 2025 12:51 MARÍA SKY RESIDENT Jan 25, 2025 22:14
[2025-01-25] MEDS: PANTOPRAZOLE 40 MG TAB PO SCH (17:18)
[2025-01-26] VITALS (7 sets, daily range): BP systolic 83–116; BP diastolic 37–68; PULSE 40–78; RESP 16; TEMP 96.5–98.3; O2SAT 91–99
[2025-01-26] MEDS: VANCOMYCIN HCL 1000 MG VL IR ONE (08:47)
--- NOTE | 2025-01-26 08:55 | DVHPN2 ---
Progress Note - Dictate Date Seen: Jan 26, 2025 Medical Necessity Reason Pt with a Central, PICC or Fol: No Subjective PT WAS BEING SEEN IN HOSPITAL WHEN SHE BECAME UNRESPONSIVE BLOOD SUGAR 166 SHE WAS MILDLY HYPOTENSIVE HAD LEFT SIGHT ARM MOVEMENT LASTED ABOUT 10 MINUTES TOTAL/ NO CLEAR POST ICTAL PERIOD PRESENTATION CONSISTENT WITH METABOLIC SYNDROME/ INFECTION ESPECIALLY WITH HER RECENT ADMISSION FOR SEPSIS/ BACTEREMIA RECENT HX OF HYPOTENSION POSITIVE BLOOD CX STAPH PRODUCTIVE COUGH HYPOXIA SEVERE ANEMIA HX OF BLEEDING DIATHESIS NOW BEING TRANSFUSE PMH; HEMATURIA HX OF ORGANIC HD S/P TAVR HX OF AV STENOSIS HTN HFpEF DIASTOLIC DYSFUNCTION AFIB ON SOTALOL HYPERCOAGULABLE STATE HX OF DVT MORBID OBESITY 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 ANEMIA HYPONATREMIA ABX VANCO MEROPENAM DC PICC LINE POSSIBLE SOURCE OF INFECTION NEW ERNESTINA CATH ONCE BLOOD CX NEGATIVE AND FEVER RESOLVED ANF LEUKOCYTOSIS RESOLVES START PT CURRENT GETTING A ERNESTINA CATH may dc home HOME IV ABX FOLLOWUP IN 1 WEEK vital signs Vital Sign Date Time Temp Pulse Resp B/P (MAP) Pulse Ox O2 Delivery O2 Flow Rate FiO2 01/26/25 05:00 98.3 68 16 97/41 (59) 94 98.3 01/25/25 20:00 Room Air* 0 21 Total Intake and Output 01/25/25 01/25/25 01/26/25 15:00 23:00 07:00 Intake Total 100 ml 370 ml 480 ml Balance 100 ml 370 ml 480 ml medications Current Medications Medications Dose Ordered Sig/Taran Route Start Time Stop Time Status Last Admin Dose Admin Carbidopa/Levodopa 2 tab HS PO 01/16/25 22:00 01/25/25 22:44 2 TAB Sotalol HCl 40 mg DAILY PO 01/17/25 11:58 Hold Levothyroxine Sodium 50 mcg QAM@0600 PO 01/20/25 06:00 01/26/25 06:46 50 MCG Metoclopramide HCl 5 mg Q8HR IV 01/20/25 22:00 01/26/25 06:47 5 MG Ceftazidime Sodium 2.5 gm/ Dextrose 100 ml @ 50 mls/hr Q8H IV 01/23/25 18:00 01/26/25 03:23 50 MLS/HR Clotrimazole 1 applic Q12HR TOP 01/23/25 22:00 01/25/25 22:45 1 APPLIC Lorazepam 0.5 mg Q8HP PRN IV 01/23/25 19:45 UNV Ferrous Sulfate 325 mg DAILY PO 01/25/25 10:00 01/25/25 10:24 325 MG Pantoprazole Sodium 40 mg BID@0600,1700 PO 01/25/25 17:00 01/26/25 06:46 40 MG Multi-Ingred Cream/Lotion/Oil/ Oint 1 applic Q6HR TOP 01/25/25 12:00 01/25/25 12:51 1 APPLIC Acetaminophen 650 mg Q4HP PRN PO 01/25/25 10:45 01/26/25 03:32 650 MG laboratory and microbiology Laboratory Tests 01/25/25 04:51 Test 01/25/25 04:51 Range/Units Serum Glucose 122 H 74-106 mg/dL Problem List PT WAS BEING SEEN IN HOSPITAL WHEN SHE BECAME UNRESPONSIVE BLOOD SUGAR 166 SHE WAS MILDLY HYPOTENSIVE HAD LEFT SIGHT ARM MOVEMENT LASTED ABOUT 10 MINUTES TOTAL/ NO CLEAR POST ICTAL PERIOD PRESENTATION CONSISTENT WITH METABOLIC SYNDROME/ INFECTION ESPECIALLY WITH HER RECENT ADMISSION FOR SEPSIS/ BACTEREMIA RECENT HX OF HYPOTENSION POSITIVE BLOOD CX STAPH PRODUCTIVE COUGH HYPOXIA SEVERE ANEMIA HX OF BLEEDING DIATHESIS NOW BEING TRANSFUSE PMH; HEMATURIA HX OF ORGANIC HD S/P TAVR HX OF AV STENOSIS HTN HFpEF DIASTOLIC DYSFUNCTION AFIB ON SOTALOL HYPERCOAGULABLE STATE HX OF DVT MORBID OBESITY 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 ANEMIA HYPONATREMIA HYPOKALEMIA LEUKOCYTOSIS Assessment/Plan ABX VANCO MEROPENEM NEW ERNESTINA CATH ONCE BLOOD CX NEGATIVE AND FEVER RESOLVED AND LEUKOCYTOSIS RESOLVES START PT BLOOD CX UCX TRANSFUSE 2 UNITS S/P TRANSFUSION HGH IS >8mg/dl HOLD OFF ON DISCONTINUING ERNESTINA CATH ABX PT TRANSFUSE 2 UNITS CORRECT K+ WITH 80 meq OF K DC HOME K CORRECTED S/P 2 UNITS PRBC check ua MONITOR HYPONATREMIA FLUID RESTRICTION SKIN TEAR RIGHT FOREARM PT PT CONTINUE TO BE IN HOSPITAL SHE WILL CONTINUE TO DEVELOP ISSUES DISCHARGE TO HOME WITH HOME HEALTH AND PT WITH IV ABX BLOOD CX NEGATIVE BUT UPWARD TREND OF WBC BECAUSE OF IATROGENIC SKIN TRAUMA Dietary Evaluation Review Comments: Check A1C Monitor PO intakes, offer Devin BID Iron supplementation Encourage PT and promoting physical activties Expected Outcomes/Goals: gradual wt loss and healed wound Plan discussed with: Patient, Daughter, Son MONTRELL RANKIN MD Jan 26, 2025 08:55
[2025-01-26] MEDS ORDERED: LEVO50TA7 PO (11:22)
[2025-01-26 11:42] LABS: Hematocrit 36.9 % (36.0-46.0); Hemoglobin 12.3 g/dL (12.2-16.2); Mean Corpuscular Hemoglobin 28.3 pg (28.0-32.0); Mean Corpuscular Volume 84.7 fL (80.0-100.0); Nucleated Red Blood Cells % 0.2 %
[2025-01-26 11:48] LABS: Potassium 4.7 mmol/L (3.5-5.1)
[2025-01-26 11:49] LABS: Anion Gap 6 (5-15); Calcium 8.7 mg/dL (8.7-10.4); Carbon Dioxide 27 mmol/L (20-31)
[2025-01-26 11:54] LABS: BUN/Creatinine Ratio 27.0 (10.0-20.0); Glucose 95 mg/dL (74-106)
[2025-01-26 12:15] LABS: Blood Urea Nitrogen 24 mg/dL (9-23); Chloride 93 mmol/L (98-107); Sodium 126 mmol/L (136-145)
--- NOTE | 2025-01-26 12:37 | DVHINCON2 ---
GI Consult Consult Note GI consult note Date of Consultation: 01/26/2025 Chief Complaint: FOBT positive with microcytic anemia blood transfusions Referring Physician: Dr. 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 Patient is alert and awake and answering all questions at this time. Denies abdominal pain. No nausea vomiting. Last bowel movement three days ago denies melena or red blood in stool. Patient usually has a bowel movement every five days and has history of constipation. Patient has had EGD and colonoscopy in the past but unsure how long ago that was and what the results were. Patient on Eliquis and aspirin Past Medical History: karen-deficiency anemia, recurrent renal stone, sacral ulcer, ESBL UTI, hiatal hernia, horseshoe kidney, ovarian cyst, atrial fibrillation, heart failure with preserved ejection fraction, parkinsonism Past Surgical History: Right knee surgery for ligament tear Social History: NO smoking, drinking ETOH and use of illegal drugs. Family History: Noncontributory Review of Systems: Constitutional: no fever, chill, weight loss HEENT: Headache Heart: no chest pain, no chest pressure Lung: no cough, no dyspnea with exertion Abdomen: see HPI Physical exam: General: NAD, AAOX3 Chest: lung cespedes clear to auscultation Heart: RRR, no murmur Abdomen: non-distended, no tenderness to palpation, +BS Labs: Test 01/25/25 04:51 Range/Units Serum Glucose 122 H 74-106 mg/dL Imaging: Assessment: Severe anemia + stool occult blood History of DVT on Eliquis Plan: will discuss with Dr. Glover Monitor labs and transfuse if hemoglobin less than seven Discussed extensively possible GI procedures including discussion about risks, benefits and alternatives of procedure, patient at this time is refusing to have any GI procedures. And would like to be discharged home. Outpatient GI follow-up recommended for cheek endoscopy when patient cleared by Cardiology Plan discussed with patient and RN Thank you for this consult Date of Service: Jan 26, 2025 Billing Provider: FERNANDO LEWIS Common Visit Codes: CONSULT ONLY Consultation Codes: [id number] CONSULT <60MIN FERNANDO LEWIS Jan 26, 2025 12:37
--- NOTE | 2025-01-26 20:01 | DVHPNRES ---
Progress Note Date Seen: Jan 26, 2025 Resident Creating Document: MARCELINA CHILDS RESIDENT Medical Necessity Reason Pt with a Central, PICC or Fol: No Subjective Review of Systems The patient was seen and examined at bedside. No acute overnight events. She denies any chest pain, shortness of breath, fever, pain at the ulcer site, abdominal pain, nausea, vomiting, constipation or any other complaints today. Objective vital signs Vital Sign Date Time Temp Pulse Resp B/P (MAP) Pulse Ox O2 Delivery O2 Flow Rate FiO2 01/26/25 16:51 97.5 67 16 83/37 (52) 91 97.5 01/26/25 10:00 Room Air* 0 21 Total Intake and Output 01/25/25 01/25/25 01/26/25 15:00 23:00 07:00 Intake Total 100 ml 370 ml 480 ml Balance 100 ml 370 ml 480 ml medications Current Medications Medications Dose Ordered Sig/Taran Route Start Time Stop Time Status Last Admin Dose Admin Carbidopa/Levodopa 2 tab HS PO 01/16/25 22:00 01/25/25 22:44 2 TAB Sotalol HCl 40 mg DAILY PO 01/17/25 11:58 Hold Levothyroxine Sodium 50 mcg QAM@0600 PO 01/20/25 06:00 01/26/25 06:46 50 MCG Metoclopramide HCl 5 mg Q8HR IV 01/20/25 22:00 01/26/25 14:49 5 MG Ceftazidime Sodium 2.5 gm/ Dextrose 100 ml @ 50 mls/hr Q8H IV 01/23/25 18:00 01/26/25 17:18 50 MLS/HR Clotrimazole 1 applic Q12HR TOP 01/23/25 22:00 01/26/25 10:00 1 APPLIC Lorazepam 0.5 mg Q8HP PRN IV 01/23/25 19:45 UNV Ferrous Sulfate 325 mg DAILY PO 01/25/25 10:00 01/26/25 09:36 325 MG Pantoprazole Sodium 40 mg BID@0600,1700 PO 01/25/25 17:00 01/26/25 17:18 40 MG Multi-Ingred Cream/Lotion/Oil/ Oint 1 applic Q6HR TOP 01/25/25 12:00 01/26/25 17:50 1 APPLIC Acetaminophen 650 mg Q4HP PRN PO 01/25/25 10:45 01/26/25 17:28 650 MG Enteral Nutritional Formula 27.5 gm BID PO 01/26/25 22:00 Examination General Appearance: Alert, Oriented X3, Cooperative, obese, lying on bed HEENT: Atraumatic, Mucous membranes moist/pink Respiratory: Clear to auscultation, Normal air movement, No added sounds Cardiovascular: Regular rate, Normal S1, Normal S2, No murmurs Abdominal/ : Active bowel sounds, Soft, no distention, no tenderness Digital rectal exam: No active bleeding, no hemorrhoid, stool sent for FOBT Extremities: No edema, Normal pulses, No tenderness/swelling Skin: No Significant rash, except past surgical scars, sacral ulcer measuring 7x6 cm over right buttock, surrounded by erythematous rashes. Right-sided back of the thigh has 4x4 cm ulcers and surrounding area is erythematous. Neuro: Normal speech, sensorimotor deficits none Psych/Mental Status: Mental status NL, Mood NL Nurse was there as wafer fab operator during examination laboratory and microbiology Laboratory Tests 01/26/25 11:11 Test 01/26/25 11:11 Range/Units Serum Glucose 95 74-106 mg/dL Microbiology Date/Time Source Procedure Growth Status 01/19/25 16:03 Blood Blood Culture - Final NO GROWTH AFTER 5 DAYS OF INCUBATION. Complete 01/17/25 04:45 Sacrum Gram Stain - Final Complete 01/17/25 04:45 Wound Culture - Final Pseudomonas aeruginosa - MDRO Pseudomonas aeruginosa Presumptive Amaris albicans Complete 01/16/25 12:16 Voided Urine Urine Culture - Final Presumptive Amaris albicans Complete Problem List/Assessment/Plan Problem List/Assessment/Plan #Metabolic encephalopathy secondary to sepsis #Nymj-qe-zzgkrvnj chronic brain microvascular ischemic changes #Mild global cerebral volume loss #Stroke ruled out #Ruled out cardiogenic syncope #History of parkinsonism Completed Head CT: No intracranial hemorrhage or mass effect. Ejsv-yi-[id number] chronic microvascular ischemic changes.Mild global cerebral volume loss. Normal carotid Doppler Patient required telemetry initially during admission, no arrhythmias evidenced. Discontinued telemetry currently Continued Levodopa/ Carbidopa 2 tab hs #Sepsis due to possible complicated UTI / sacral ulcers #Decubitus sacral ulcer due with MDRO Pseudomonas - Present on admission #Rule out bacteremia #H/o UTI : Pseudomonas MDR #H/o multiple episodes of bacteremia due to staph Currently on adjusted IV antibiotic (Avycaz, previously on Ertapenem and vancomycin) Port-A-Cath management discussed with Dr. Cifuentes. He advised to do blood cultures and to keep it in place. Blood culture from Port-A-Cath sent, pending results. prelim neg Antibiotic (Vancomycin) lock via Port-A-Cath catheter given, once Completed cultures: Peripheral Blood: Negative. Port-a-cath blood: preliminary neg. Urine: amaris. Sacral: MDRO Pseudomonas Consulted surgical brace maker to evaluate sacral wound, no surgical debridement of the wound not indicated now. Conservative management (keep area clean and dry, Zinc oxide cream on erythematous areas, Medi honey was recommended for the ulcer, however, patient refused). financial services director consulted, arranging home health to continue IV antibiotics for two weeks. #Chronic heart failure with diastolic dysfunction, stable #Permanent atrial fibrillation (CHADS-VASc 5) - secondary hypercoagulability state #History of aortic stenosis - s/p TAVR Last echocardiogram completed on 12/31/2024: LVEF >55%, left and right atrial enlargement, mild TR and MR Sotalol discontinued due to hypotension. Discontinued apixaban and enoxaparin due to bleeding and anemia with transfusion needed. High risk of stroke #Severe Hypokalemia; resolved #Hypomagnesemia #QT prolongation on EKG - resolved #Hyponatremia Patient required telemetry initially during admission, no arrhythmias evidence. Discontinued telemetry currently Replenish electrolytes Avoid ondansetron, azithromycin and other QT prolonging drugs #Iron deficiency anemia #Bleeding decubitus sacral ulcers - Present on admission #Severe anemia due to bleeding - s/p multiple RBCs transfusion #Probable GI bleed Required multiple RBC, total 3 units until 01/23/2025 Sacral ulcer was bleeding, controlled. Discontinued anticoagulation Blood transfusion if Hemoglobin below 7 PO iron Completed rectal exam which showed positive stool occult blood Consulted GI specialist due to severe anemia with requirement of multiple RBC transfusions and positive stool occult blood GI recommended outpatient panendoscopy, following cardiology clearance. #Chronic Hypothyroidism #Iatrogenic hyperthyroidism Patient's TSH 0.22, Free T4 2.37, Free T3 1.82. Interpret as iatrogenic hyperthyroidism. Reduced home dose from 75 mcg p.o. daily to levothyroxine 50 mcg p.o. daily Follow up with PCP GI prophylaxis: protonix DVT prophylaxis: SCDs Diet: Diabetic Goals of care discussed with the patient for more than 27 minutes: Full code status Case discussed with Dr. Alicia , patient and RN: Sepsis secondary to decubitus ulcer present on admission with Acinetobacter MDRO under adjusted IV antibiotics (Avycaz), discharge planning underway with home health with this IV antibiotic for at least two weeks. Patient required multiple RBC transfusion probably secondary to decubitus ulcer bleeding and also presents positive fecal occult blood, consulted GI to evaluate endoscopies as inpatient outpatient. Patient has poor prognosis Plan discussed with: Patient, Other (RN) My Orders My Orders Orders - MARCELINA CHILDS RESIDENT Procedure Category Date Status Time * Gi Dvh Photo Technologist CONS 01/25/25 Transmitted 22:34 * Life Guard CONS 01/26/25 Transmitted Consult 10:51 Cardiac DIET 01/26/25 Transmitted Diet-2gna,Lofat,Lochol Lunch Nutritional PHA 01/26/25 In Process Supplements (Devin 22:00 Dietary Evaluation Review Comments: Check A1C Monitor PO intakes, offer Devin BID Iron supplementation Encourage PT and promoting physical activties Expected Outcomes/Goals: gradual wt loss and healed wound Date of Service: Jan 26, 2025 Billing Provider: SHERRILL ALICIA MD Common Visit Codes: [id number] INP/OBS CARE(HIGH) MARCELINA CHILDS RESIDENT Jan 26, 2025 20:01 SHERRILL ALICIA MD Jan 26, 2025 21:51
[2025-01-26] MEDS: Juven Orange Powder PACKET 27.5gm PO SCH (23:27)
[2025-01-27] VITALS (8 sets, daily range): BP systolic 97–123; BP diastolic 51–71; PULSE 62–83; RESP 14–18; TEMP 97.2–98; O2SAT 65–98
[2025-01-27] MEDS: HYDROcodone-ACET 5/325MG TAB PO ONE (12:14)
[2025-01-27] MEDS ORDERED: LIDOCAINE 2% TOPICAL JELLY 5 ML URJT TOP PRN (12:45)
[2025-01-27 14:06] LABS: Hematocrit 34.1 % (36.0-46.0); Hemoglobin 11.3 g/dL (12.2-16.2); Mean Corpuscular Hemoglobin 27.8 pg (28.0-32.0); Mean Corpuscular Volume 83.8 fL (80.0-100.0)
[2025-01-27 14:12] LABS: Potassium 4.4 mmol/L (3.5-5.1)
[2025-01-27 14:13] LABS: Anion Gap 7 (5-15); Carbon Dioxide 27 mmol/L (20-31)
[2025-01-27 14:19] LABS: BUN/Creatinine Ratio 45.6 (10.0-20.0); Glucose 104 mg/dL (74-106)
[2025-01-27 14:28] LABS: Blood Urea Nitrogen 41 mg/dL (9-23); Calcium 8.4 mg/dL (8.7-10.4); Chloride 94 mmol/L (98-107); Sodium 128 mmol/L (136-145)
[2025-01-27] MEDS ORDERED: HYDROcodone-ACET 5/325MG TAB PO PRN (16:00)
[2025-01-27 16:54] LABS: Anisocytosis Slight; Macrocytosis Slight; Total Cells Counted 100.0 (100)
[2025-01-27 16:55] LABS: Nucleated Red Blood Cells % 0.0 %
--- NOTE | 2025-01-27 21:22 | DVHPNRES ---
Progress Note Date Seen: Jan 27, 2025 Resident Creating Document: MARCELINA CHILDS Medical Necessity Reason Pt with a Central, PICC or Fol: No Subjective Review of Systems Patient was seen and examined at bedside. Overnight events were reviewed. She reports complaining of pain at the sacral ulcer site. Wound care was provided which exacerbates the pain. She was started on viscous lidocaine topical and tramadol 50 mg p.r.n. for pain. She denies any chest pain, shortness of breath, fever or any other complaints today. Objective vital signs Vital Sign Date Time Temp Pulse Resp B/P (MAP) Pulse Ox O2 Delivery O2 Flow Rate FiO2 01/27/25 17:30 97.2 83 18 123/71 (88) 94 97.2 01/27/25 10:10 Room Air 0.0 01/27/25 10:10 21 Total Intake and Output 01/26/25 01/26/25 01/27/25 15:00 23:00 07:00 Intake Total 100 ml 720 ml 580 ml Balance 100 ml 720 ml 580 ml medications Current Medications Medications Dose Ordered Sig/Taran Route Start Time Stop Time Status Last Admin Dose Admin Carbidopa/Levodopa 2 tab HS PO 01/16/25 22:00 01/26/25 23:26 2 TAB Sotalol HCl 40 mg DAILY PO 01/17/25 11:58 Hold Levothyroxine Sodium 50 mcg QAM@0600 PO 01/20/25 06:00 01/27/25 06:15 50 MCG Metoclopramide HCl 5 mg Q8HR IV 01/20/25 22:00 01/27/25 14:22 5 MG Ceftazidime Sodium 2.5 gm/ Dextrose 100 ml @ 50 mls/hr Q8H IV 01/23/25 18:00 01/27/25 17:10 50 MLS/HR Clotrimazole 1 applic Q12HR TOP 01/23/25 22:00 01/27/25 09:41 1 APPLIC Lorazepam 0.5 mg Q8HP PRN IV 01/23/25 19:45 UNV Ferrous Sulfate 325 mg DAILY PO 01/25/25 10:00 01/27/25 09:21 325 MG Pantoprazole Sodium 40 mg BID@0600,1700 PO 01/25/25 17:00 01/27/25 17:10 40 MG Multi-Ingred Cream/Lotion/Oil/ Oint 1 applic Q6HR TOP 01/25/25 12:00 01/27/25 18:11 1 APPLIC Acetaminophen 650 mg Q4HP PRN PO 01/25/25 10:45 01/27/25 20:08 650 MG Enteral Nutritional Formula 27.5 gm BID PO 01/26/25 22:00 01/27/25 09:41 27.5 GM Heparin Sodium (Porcine) 500 units PRN PRN IV 01/27/25 06:45 Acetaminophen/ Hydrocodone Bitart 1 tab Q4HPRN PRN PO 01/27/25 16:00 Lidocaine HCl 5 ml BID PRN TOP 01/27/25 12:45 Tramadol HCl 50 mg Q4HP PRN PO 01/27/25 19:15 Examination General Appearance: Alert, Oriented X3, Cooperative, obese, lying on bed HEENT: Atraumatic, Mucous membranes moist/pink Respiratory: Clear to auscultation, Normal air movement, No added sounds Cardiovascular: Regular rate, Normal S1, Normal S2, No murmurs Abdominal/ : Active bowel sounds, Soft, no distention, no tenderness Digital rectal exam: No active bleeding, no hemorrhoid, stool sent for FOBT Extremities: No edema, Normal pulses, No tenderness/swelling Skin: No Significant rash, except past surgical scars, sacral ulcer measuring 7x6 cm over right buttock, surrounded by erythematous rashes. Right-sided back of the thigh has 4x4 cm ulcers and surrounding area is erythematous. Neuro: Normal speech, sensorimotor deficits none Psych/Mental Status: Mental status NL, Mood NL Nurse was there as role player during examination laboratory and microbiology Laboratory Tests 01/27/25 13:20 Test 01/27/25 13:20 Range/Units Serum Glucose 104 74-106 mg/dL Microbiology Date/Time Source Procedure Growth Status 01/19/25 16:03 Blood Blood Culture - Final NO GROWTH AFTER 5 DAYS OF INCUBATION. Complete 01/17/25 04:45 Sacrum Gram Stain - Final Complete 01/17/25 04:45 Wound Culture - Final Pseudomonas aeruginosa - MDRO Pseudomonas aeruginosa Presumptive Amaris albicans Complete 01/16/25 12:16 Voided Urine Urine Culture - Final Presumptive Amaris albicans Complete Problem List/Assessment/Plan Problem List/Assessment/Plan #Metabolic encephalopathy secondary to sepsis #Ymtn-[id number] chronic brain microvascular ischemic changes #Mild global cerebral volume loss #Stroke ruled out #Ruled out cardiogenic syncope #History of parkinsonism Completed Head CT: No intracranial hemorrhage or mass effect. Itzv-eq-ssbgroiz chronic microvascular ischemic changes.Mild global cerebral volume loss. Normal carotid Doppler Patient required telemetry initially during admission, no arrhythmias evidenced. Discontinued telemetry currently Continued Levodopa/ Carbidopa 2 tab hs #Sepsis due to possible complicated UTI / sacral ulcers #Decubitus sacral ulcer due with MDRO Pseudomonas - Present on admission #Rule out bacteremia #H/o UTI : Pseudomonas MDR #H/o multiple episodes of bacteremia due to staph Currently on adjusted IV antibiotic (Avycaz, previously on Ertapenem and vancomycin) Port-A-Cath management discussed with Dr. Cifuentes. He advised to do blood cultures and to keep it in place. Blood culture from Port-A-Cath sent, pending results. prelim neg Antibiotic (Vancomycin) lock via Port-A-Cath catheter given, once Completed cultures: Peripheral Blood: Negative. Port-a-cath blood: preliminary neg. Urine: amaris. Sacral: MDRO Pseudomonas Consulted hand frame surgical elastic knitter to evaluate sacral wound, no surgical debridement of the wound not indicated now. Conservative management (keep area clean and dry, Zinc oxide cream on erythematous areas, Medi honey was recommended for the ulcer, however, patient refused). central services tech consulted, arranging home health to continue IV antibiotics for two weeks. Viscous lidocaine given topically over the wounds. #Chronic heart failure with diastolic dysfunction, stable #Permanent atrial fibrillation (CHADS-VASc 5) - secondary hypercoagulability state #History of aortic stenosis - s/p TAVR Last echocardiogram completed on 12/31/2024: LVEF >55%, left and right atrial enlargement, mild TR and MR Sotalol on hold due to hypotension. Discontinued apixaban and enoxaparin due to bleeding and anemia with transfusion needed. High risk of stroke #Severe Hypokalemia - resolved #Hypomagnesemia #QT prolongation on EKG - resolved #Hyponatremia Patient required telemetry initially during admission, no arrhythmias evidence. Discontinued telemetry currently Replenish electrolytes Avoid ondansetron, azithromycin and other QT prolonging drugs #Iron deficiency anemia #Bleeding decubitus sacral ulcers - Present on admission #Severe anemia due to bleeding - s/p multiple RBCs transfusion #Probable GI bleed Required multiple RBC, total 3 units until 01/23/2025 Sacral ulcer was bleeding, controlled. Discontinued anticoagulation Blood transfusion if Hemoglobin below 7 PO iron Completed rectal exam which showed positive stool occult blood Consulted GI specialist due to severe anemia with requirement of multiple RBC transfusions and positive stool occult blood GI recommended outpatient panendoscopy, following cardiology clearance. Patient's wishes are to go home, she does not want any endoscopy during this admission, and evaluation by her PCP as outpatient before making any decisions regarding endoscopies. #Chronic Hypothyroidism #Iatrogenic hyperthyroidism Patient's TSH 0.22, Free T4 2.37, Free T3 1.82. Interpret as iatrogenic hyperthyroidism. Reduced home dose from 75 mcg p.o. daily to levothyroxine 50 mcg p.o. daily Follow up with PCP GI prophylaxis: protonix DVT prophylaxis: SCDs Diet: Diabetic Goals of care discussed with the patient for more than 27 minutes: Full code status Case discussed with Dr. Alicia , patient and RN: Sepsis secondary to decubitus ulcer present on admission with Pseudomonas MDRO under adjusted IV antibiotics (Avycaz), discharge planning underway with home health with this IV antibiotic for at least two weeks, trying to obtain IV antibiotics. Patient required multiple RBC transfusion probably secondary to decubitus ulcer bleeding and also presents positive fecal occult blood, consulted GI specialist recommends outpatient follow up, abiding by patients wishes. Patient has poor prognosis Plan discussed with: Patient, Other (RN) Plan discussed with: Patient, Other (RN) My Orders My Orders Orders - MARCELINA CHILDS RESIDENT Procedure Category Date Status Time Hydrocodone-Acet PHA 01/27/25 In Process 5/325mg Tab ([place] 16:00 Pt Request For Service PT 01/27/25 Logged 13:58 Tramadol Hcl (Ultram) PHA 01/27/25 In Process 19:15 Dietary Evaluation Review Comments: Check A1C Monitor PO intakes, offer Devin BID Iron supplementation Encourage PT and promoting physical activties Expected Outcomes/Goals: gradual wt loss and healed wound MRACELINA CHILDS RESIDENT Jan 27, 2025 21:22 MARÍA SKY RESIDENT Jan 28, 2025 14:04
[2025-01-28] VITALS (9 sets, daily range): BP systolic 97–130; BP diastolic 59–110; PULSE 43–110; RESP 14–17; TEMP 96.8–97.8; O2SAT 90–100
[2025-01-28 10:39] LABS: Hematocrit 34.5 % (36.0-46.0); Hemoglobin 11.5 g/dL (12.2-16.2); Mean Corpuscular Hemoglobin 28.1 pg (28.0-32.0); Mean Corpuscular Volume 84.7 fL (80.0-100.0)
[2025-01-28 10:45] LABS: Chloride 95 mmol/L (98-107); Potassium 4.6 mmol/L (3.5-5.1); Sodium 128 mmol/L (136-145)
[2025-01-28 10:51] LABS: BUN/Creatinine Ratio 54.5 (10.0-20.0)
[2025-01-28 10:55] LABS: Blood Urea Nitrogen 48 mg/dL (9-23); Calcium 8.5 mg/dL (8.7-10.4); Glucose 72 mg/dL (74-106)
[2025-01-28 11:43] LABS: Anion Gap 7 (5-15); Carbon Dioxide 26 mmol/L (20-31)
[2025-01-28 12:45] LABS: Total Cells Counted 100.0 (100)
[2025-01-28 12:46] LABS: Anisocytosis Slight
--- NOTE | 2025-01-28 19:24 | DVHPNRES ---
Progress Note Date Seen: Jan 28, 2025 Resident Creating Document: SOPHY EVANS RESIDENT Medical Necessity Reason Pt with a Central, PICC or Fol: No Subjective Review of Systems A 79 y old PMHx afib, HFpEF, parkinsonism, anemia, psoriasis, history of multiple staphylococcus bacteremia, s/p port cath, ESBL UTI, sp TAVR, horseshoe kidney who came to ED due to syncope . PMHx:iron-deficiency anemia, recurrent renal stone, sacral ulcer, MDR Pseudomona UTI, hiatal hernia, horseshoe kidney, ovarian cyst, atrial fibrillation, heart failure with preserved ejection fraction, parkinsonism PSHx: Right knee surgery for ligament tear Family history: Prostatic cancer in brother, brain cancer in sister Social history: Denies smoking alcohol or illicit drugs Home medication: Sotalol, levothyroxine, Eliquis, Bumex, aspirin , metolazone, betamethasone cream Allergic history: Morphine, penicillin, TMP SMX, ceftriaxone And seen and evaluated in bedside. Patient denies acute symptoms like fever, cough, chest pain, abdominal pain, dysuria. Patient currently lying on bed without any discomfort. No acute event overnight. Labs reviewed shows hyponatremia and hemoglobin level stable today hemoglobin 11.5. No Signs symptoms of active bleeding. Objective vital signs Vital Sign Date Time Temp Pulse Resp B/P (MAP) Pulse Ox O2 Delivery O2 Flow Rate FiO2 01/28/25 17:19 96.9 43 14 107/69 (82) 90 96.9 01/28/25 10:00 Room Air* 0 21 Total Intake and Output 01/27/25 01/27/25 01/28/25 15:00 23:00 07:00 Intake Total 100 ml 100 ml 450 ml Balance 100 ml 100 ml 450 ml medications Current Medications Medications Dose Ordered Sig/Taran Route Start Time Stop Time Status Last Admin Dose Admin Carbidopa/Levodopa 2 tab HS PO 01/16/25 22:00 01/27/25 22:47 2 TAB Sotalol HCl 40 mg DAILY PO 01/17/25 11:58 Hold Levothyroxine Sodium 50 mcg QAM@0600 PO 01/20/25 06:00 01/28/25 05:20 50 MCG Metoclopramide HCl 5 mg Q8HR IV 01/20/25 22:00 01/28/25 15:52 5 MG Ceftazidime Sodium 2.5 gm/ Dextrose 100 ml @ 50 mls/hr Q8H IV 01/23/25 18:00 01/28/25 17:37 50 MLS/HR Clotrimazole 1 applic Q12HR TOP 01/23/25 22:00 01/28/25 09:43 1 APPLIC Lorazepam 0.5 mg Q8HP PRN IV 01/23/25 19:45 UNV Ferrous Sulfate 325 mg DAILY PO 01/25/25 10:00 01/28/25 09:30 325 MG Pantoprazole Sodium 40 mg BID@0600,1700 PO 01/25/25 17:00 01/28/25 17:36 40 MG Multi-Ingred Cream/Lotion/Oil/ Oint 1 applic Q6HR TOP 01/25/25 12:00 01/28/25 17:50 1 APPLIC Acetaminophen 650 mg Q4HP PRN PO 01/25/25 10:45 01/28/25 17:44 650 MG Enteral Nutritional Formula 27.5 gm BID PO 01/26/25 22:00 01/28/25 09:43 27.5 GM Heparin Sodium (Porcine) 500 units PRN PRN IV 01/27/25 06:45 01/28/25 05:25 500 UNITS Acetaminophen/ Hydrocodone Bitart 1 tab Q4HPRN PRN PO 01/27/25 16:00 Lidocaine HCl 5 ml BID PRN TOP 01/27/25 12:45 Tramadol HCl 50 mg Q4HP PRN PO 01/27/25 19:15 01/28/25 13:40 50 MG Examination General Appearance: Alert, Oriented X3, Cooperative, obese, lying on bed, obese HEENT: Atraumatic, Mucous membranes moist/pink Respiratory: Clear to auscultation, Normal air movement, No added sounds Cardiovascular: Regular rate, Normal S1, Normal S2, No murmurs Abdominal/ : Active bowel sounds, Soft, no distention, no tenderness Extremities: No edema, Normal pulses, No tenderness/swelling Skin: No Significant rash, except past surgical scars, sacral ulcer measuring 7x6 cm over right buttock, surrounded by erythematous rashes. Right-sided back of the thigh has 4x4 cm ulcers and surrounding area is erythematous. Neuro: Normal speech, sensorimotor deficits none Psych/Mental Status: Mental status NL, Mood NL Nurse was there as cider maker during examination laboratory and microbiology Laboratory Tests 01/28/25 10:15 01/28/25 10:00 Test 01/28/25 10:00 Range/Units Serum Glucose 72 L 74-106 mg/dL Microbiology Date/Time Source Procedure Growth Status 01/19/25 16:03 Blood Blood Culture - Final NO GROWTH AFTER 5 DAYS OF INCUBATION. Complete 01/17/25 04:45 Sacrum Gram Stain - Final Complete 01/17/25 04:45 Wound Culture - Final Pseudomonas aeruginosa - MDRO Pseudomonas aeruginosa Presumptive Leidy albicans Complete 01/16/25 12:16 Voided Urine Urine Culture - Final Presumptive Leidy albicans Complete Problem List/Assessment/Plan Problem List/Assessment/Plan #Syncope, possible due to electrolyte derangement/arrhythmic? #Severe Hypokalemia #Hypomagnesemia #[id number] chronic microvascular ischemic changes. #Mild global cerebral volume loss #Stroke ruled out #Atrial fibrillation Normal carotid doppler Head CT:No intracranial hemorrhage or mass effect. [id number] chronic microvascular ischemic changes.Mild global cerebral volume loss. Cardiac diet Continue telemetry Today potassium level 4.6 DC furosemide due to hypokalemia # Hyponatremia Sodium level 128 Follow BMP #Chronic heart failure with diastolic dysfunction, stable #H/o hypothyroidism #Euthyroid sick syndrome #atrial fibrillation Sotalol for AFib was started, discontinued due to hypotension. Levothyroxin 50 mcg TSH 0.22, Free T4 2.37, Free T3 1.82 Outpatient follow up. #Sepsis due to possible complicated UTI / sacral ulcers #Rule out bacteremia #H/o UTI : Pseudomona MDR #H/o multiple episodes of bacteremia due to staph WBC trending down 11.2 to 9.2 Patient currently on ceftazidime-avibactam Port-A-Cath management discussed with Dr. Cifuentes. He advised to do blood cultures and to keep it in place. Blood culture from Port-A-Cath sent, pending results. IV antibiotic (Vancomycin) lock via Port-A-Cath catheter done. Nasal swab on 11/10/2024 negative for MRSA Wound culture growth MDRO on 01/17/2025 Blood cultures 01/19/2025-no growth x 2 #Iron deficiency anemia Current hemoglobin 11.5 AND HCT 34.5 No signs symptoms of active bleeding #Sacral ulcers bleeding Sacral ulcer was bleeding, controlled. Wound consult. Blood transfusion if Hemoglobin below 7 # QT prolongation on EKG Avoid ondansetron, azithromycin and other QT prolonging drugs #Parkinsonism Levodopa/ Carbidopa 2 tab hs GI prophylaxis: protonix 40 mg p.o. daily DVT prophylaxis: SCDs Diet: Diabetic Goals of care discussed with the patient for more than 21 minutes: Full code status. Case discussed with . Plan discussed with: Patient, Other (Nurse) Dietary Evaluation Review Comments: Check A1C Monitor PO intakes, offer Devin BID Iron supplementation Encourage PT and promoting physical activties Expected Outcomes/Goals: gradual wt loss and healed wound SOPHY EVANS RESIDENT Jan 28, 2025 19:24
[2025-01-29] VITALS (11 sets, daily range): BP systolic 97–146; BP diastolic 46–72; PULSE 69–90; RESP 16–18; TEMP 36.8; O2SAT 90–100
[2025-01-29 10:10] LABS: Alkaline Phosphatase 113 U/L (46-116); Anion Gap 7 (5-15); BUN/Creatinine Ratio 35.6 (10.0-20.0); Calcium 8.8 mg/dL (8.7-10.4); Carbon Dioxide 26 mmol/L (20-31); Potassium 4.0 mmol/L (3.5-5.1)
[2025-01-29 10:11] LABS: Alanine Aminotransferase < 9 U/L (7-40); Albumin 2.6 g/dL (3.2-4.8); Bilirubin, Total 0.3 mg/dL (0.2-1.0); Blood Urea Nitrogen 37 mg/dL (9-23); Chloride 95 mmol/L (98-107); Glucose 114 mg/dL (74-106); Sodium 128 mmol/L (136-145); Total Protein 4.8 g/dL (5.7-8.2)
--- NOTE | 2025-01-29 13:22 | DVHPN2 ---
Progress Note - Dictate Date Seen: Jan 28, 2025 Medical Necessity Reason Pt with a Central, PICC or Fol: No Subjective PT WAS BEING SEEN IN HOSPITAL WHEN SHE BECAME UNRESPONSIVE BLOOD SUGAR 166 SHE WAS MILDLY HYPOTENSIVE HAD LEFT SIGHT ARM MOVEMENT LASTED ABOUT 10 MINUTES TOTAL/ NO CLEAR POST ICTAL PERIOD PRESENTATION CONSISTENT WITH METABOLIC SYNDROME/ INFECTION ESPECIALLY WITH HER RECENT ADMISSION FOR SEPSIS/ BACTEREMIA RECENT HX OF HYPOTENSION POSITIVE BLOOD CX STAPH PRODUCTIVE COUGH HYPOXIA SEVERE ANEMIA HX OF BLEEDING DIATHESIS NOW BEING TRANSFUSE PMH; HEMATURIA HX OF ORGANIC HD S/P TAVR HX OF AV STENOSIS HTN HFpEF DIASTOLIC DYSFUNCTION AFIB ON SOTALOL HYPERCOAGULABLE STATE HX OF DVT MORBID OBESITY 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 ANEMIA HYPONATREMIA ABX VANCO MEROPENAM DC PICC LINE POSSIBLE SOURCE OF INFECTION NEW ERNESTINA CATH ONCE BLOOD CX NEGATIVE AND FEVER RESOLVED ANF LEUKOCYTOSIS RESOLVES START PT CURRENT GETTING A ERNESTINA CATH may dc home HOME IV ABX FOLLOWUP IN 1 WEEK vital signs Vital Sign Date Time Temp Pulse Resp B/P (MAP) Pulse Ox O2 Delivery O2 Flow Rate FiO2 01/29/25 13:00 98.2 76 18 123/46 (71) 100 98.2 01/29/25 10:00 Nasal Cannula 2.0 01/29/25 10:00 28 Total Intake and Output 01/28/25 01/28/25 01/29/25 15:00 23:00 07:00 Intake Total 100 ml 100 ml 550 ml Balance 100 ml 100 ml 550 ml medications Current Medications Medications Dose Ordered Sig/Taran Route Start Time Stop Time Status Last Admin Dose Admin Carbidopa/Levodopa 2 tab HS PO 01/16/25 22:00 01/28/25 22:19 2 TAB Sotalol HCl 40 mg DAILY PO 01/17/25 11:58 Hold Levothyroxine Sodium 50 mcg QAM@0600 PO 01/20/25 06:00 01/29/25 06:04 50 MCG Metoclopramide HCl 5 mg Q8HR IV 01/20/25 22:00 01/29/25 06:04 5 MG Ceftazidime Sodium 2.5 gm/ Dextrose 100 ml @ 50 mls/hr Q8H IV 01/23/25 18:00 01/29/25 09:48 50 MLS/HR Clotrimazole 1 applic Q12HR TOP 01/23/25 22:00 01/28/25 22:19 1 APPLIC Lorazepam 0.5 mg Q8HP PRN IV 01/23/25 19:45 UNV Ferrous Sulfate 325 mg DAILY PO 01/25/25 10:00 01/29/25 09:47 325 MG Pantoprazole Sodium 40 mg BID@0600,1700 PO 01/25/25 17:00 01/29/25 06:04 40 MG Multi-Ingred Cream/Lotion/Oil/ Oint 1 applic Q6HR TOP 01/25/25 12:00 01/28/25 17:50 1 APPLIC Acetaminophen 650 mg Q4HP PRN PO 01/25/25 10:45 01/29/25 09:48 650 MG Enteral Nutritional Formula 27.5 gm BID PO 01/26/25 22:00 01/29/25 09:14 27.5 GM Heparin Sodium (Porcine) 500 units PRN PRN IV 01/27/25 06:45 01/28/25 05:25 500 UNITS Acetaminophen/ Hydrocodone Bitart 1 tab Q4HPRN PRN PO 01/27/25 16:00 Lidocaine HCl 5 ml BID PRN TOP 01/27/25 12:45 Tramadol HCl 50 mg Q4HP PRN PO 01/27/25 19:15 01/29/25 12:30 50 MG laboratory and microbiology Laboratory Tests 01/29/25 09:10 01/28/25 10:15 Test 01/29/25 09:10 Range/Units Serum Glucose 114 H 74-106 mg/dL Problem List PT WAS BEING SEEN IN HOSPITAL WHEN SHE BECAME UNRESPONSIVE BLOOD SUGAR 166 SHE WAS MILDLY HYPOTENSIVE HAD LEFT SIGHT ARM MOVEMENT LASTED ABOUT 10 MINUTES TOTAL/ NO CLEAR POST ICTAL PERIOD PRESENTATION CONSISTENT WITH METABOLIC SYNDROME/ INFECTION ESPECIALLY WITH HER RECENT ADMISSION FOR SEPSIS/ BACTEREMIA RECENT HX OF HYPOTENSION POSITIVE BLOOD CX STAPH PRODUCTIVE COUGH HYPOXIA SEVERE ANEMIA HX OF BLEEDING DIATHESIS NOW BEING TRANSFUSE PMH; HEMATURIA HX OF ORGANIC HD S/P TAVR HX OF AV STENOSIS HTN HFpEF DIASTOLIC DYSFUNCTION AFIB ON SOTALOL HYPERCOAGULABLE STATE HX OF DVT MORBID OBESITY 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 ANEMIA HYPONATREMIA HYPOKALEMIA LEUKOCYTOSIS Assessment/Plan ABX VANCO MEROPENEM NEW ERNESTINA CATH ONCE BLOOD CX NEGATIVE AND FEVER RESOLVED AND LEUKOCYTOSIS RESOLVES START PT BLOOD CX UCX TRANSFUSE 2 UNITS S/P TRANSFUSION HGH IS >8mg/dl HOLD OFF ON DISCONTINUING ERNESTINA CATH ABX PT TRANSFUSE 2 UNITS CORRECT K+ WITH 80 meq OF K DC HOME K CORRECTED S/P 2 UNITS PRBC check ua MONITOR HYPONATREMIA FLUID RESTRICTION SKIN TEAR RIGHT FOREARM PT PT CONTINUE TO BE IN HOSPITAL SHE WILL CONTINUE TO DEVELOP ISSUES DISCHARGE TO HOME WITH HOME HEALTH AND PT WITH IV ABX BLOOD CX NEGATIVE BUT UPWARD TREND OF WBC BECAUSE OF IATROGENIC SKIN TRAUMA Dietary Evaluation Review Comments: Check A1C Monitor PO intakes, offer Devin BID Iron supplementation Encourage PT and promoting physical activties Expected Outcomes/Goals: gradual wt loss and healed wound Plan discussed with: Patient, Daughter MONTRELL RANKIN MD Jan 29, 2025 13:22
--- NOTE | 2025-01-29 13:28 | DVHDS2 ---
Discharge Summary Date of Admission Jan 15, 2025 at 21:49 Date of Discharge: Jan 29, 2025 Admitting Diagnosis seizure hypoglucemia sepsis Wounds: ARM SKIN BREAKDOWN DECUB STAGE III Labs/Diagnostic Data: Laboratory Results Test 01/29/25 09:10 01/28/25 10:15 01/27/25 13:20 01/24/25 10:00 Sodium Level 128 mmol/L (136-145) Potassium Level 4.0 mmol/L (3.5-5.1) Chloride Level 95 mmol/L (98-107) Carbon Dioxide Level 26 mmol/L (20-31) Anion Gap 7 (5-15) Blood Urea Nitrogen 37 mg/dL (9-23) Creatinine 1.04 mg/dL (0.550-1.02) Glomerular Filtration Rate Calc 54 mL/min (>90) BUN/Creatinine Ratio 35.6 (10.0-20.0) Serum Glucose 114 mg/dL (74-106) Calcium Level 8.8 mg/dL (8.7-10.4) Total Bilirubin 0.3 mg/dL (0.2-1.0) Aspartate Amino Transferase (AST) 17 U/L (13-40) Alanine Aminotransferase (ALT) < 9 U/L (7-40) Alkaline Phosphatase 113 U/L (46-116) Total Protein 4.8 g/dL (5.7-8.2) Albumin 2.6 g/dL (3.2-4.8) White Blood Count 9.2 10^3/uL (4.4-10.8) Red Blood Count 4.08 10^6/uL (4.0-5.20) Hemoglobin 11.5 g/dL (12.2-16.2) Hematocrit 34.5 % (36.0-46.0) Mean Corpuscular Volume 84.7 fL (80.0-100.0) Mean Corpuscular Hemoglobin 28.1 pg (28.0-32.0) Mean Corpuscular Hemoglobin Concent 33.2 g/dL (32.0-36.0) Red Cell Distribution Width 17.8 % (11.8-14.3) Platelet Count 187 10^3/uL (140-450) Mean Platelet Volume 7.2 fL (6.9-10.8) Neutrophils (%) (Auto) % (37.0-80.0) Lymphocytes (%) (Auto) % (10.0-50.0) Monocytes (%) (Auto) % (0.0-12.0) Basophils (%) (Auto) % (0.0-2.0) Neutrophils # (Auto) 10 ^3/uL (1.6-8.6) Lymphocytes # (Auto) 10 ^3/uL (0.4-5.4) Monocytes # (Auto) 10 ^3/uL (0-1.3) Differential Total Cells Counted 100.0 (100) Neutrophils % (Manual) 66 (37.0-80.0) Band Neutrophils % (Manual) 2 Lymphocytes % (Manual) 18 (10.0-50.0) Monocytes % (Manual) 9 (0-12) Eosinophils % (Manual) 5 (0-7) Basophils % (Manual) 0 (0.0-2.0) Metamyelocytes % (manual) 0 Myelocytes % (Manual) 0 Promyelocytes % (Manual) 0 Blast Cells % (Manual) 0 Reactive Lymphocytes 0 Platelet Estimate Adequate Anisocytosis (manual) Slight Eosinophils (%) (Auto) 3.3 % (0.0-7.0) Eosinophils # (Auto) 0.4 10 ^3/uL (0-0.8) Basophils # (Auto) 0.1 10 ^3/uL (0-0.2) Nucleated Red Blood Cells 0.0 % Microcytosis Slight Macrocytosis Slight Stool Occult Blood Positive (Negative) Stool Occult Blood Sample #3 (Negative) Test 01/24/25 05:10 01/22/25 05:10 01/21/25 05:44 01/18/25 11:05 Random Vancomycin Level 20.4 ug/mL (5-10) Smudge Cells 3 /100 WBC Magnesium Level 2.2 mg/dL (1.6-2.6) Polychromasia Slight Vancomycin Level Trough 45.8 ug/mL (5-10) Test 01/18/25 09:50 01/16/25 12:16 01/16/25 10:44 01/15/25 21:04 Prothrombin Time 10.5 sec (9.3-11.8) Prothrombin Time INR 0.99 (0.9-1.15) Activated Partial Thromboplast Time 31.3 SEC (24.5-34.5) Urine Color Light-yellow (Yellow) Urine Clarity Clear (Clear) Urine pH 6.5 (5.0-9.0) Urine Specific [place] 1.012 (1.001-1.035) Urine Protein Negative (Negative) Urine Ketones Negative (Negative) Urine Blood Negative /uL (Negative) Urine Nitrite Negative (Negative) Urine Bilirubin Negative (Negative) Urine Urobilinogen Normal mg/dL (Negative) Urine Leukocyte Esterase 1+ /uL (Negative) Urine RBC <1 /hpf (0 - 4) Urine Microscopic WBC 5 /HPF (0-5) Urine Squamous Epithelial Cells Few /hpf (<5) Urine Bacteria None seen /hpf (None Seen) Urine Glucose Normal mg/dL (Normal) Free Thyroxine (T4) Calculated 2.37 ng/dL (0.89-1.76) Free Triiodothyronine (T3) pg/mL 1.82 pg/mL (2.3-4.2) D-Dimer, Quantitative 0.48 mg/L FEU (0.0-0.49) Iron Level 15 ug/dL (50-170) Total Iron Binding Capacity 318 ug/dL (250-425) Percent Iron Saturation 4.7 % (15-50) Ferritin 18.4 ng/mL (10-291) Troponin I High Sensitivity 14 ng/L (</=34) B-Type Natriuretic Peptide 116.65 pg/mL (0-100) Thyroid Stimulating Hormone (TSH) 0.22 uIU/mL (0.55-4.78) Test 01/15/25 17:10 Lactic Acid Level 0.8 mmol/L (0.4-2.0) Other Laboratory Tests 01/29/25 09:10 01/28/25 10:15 Brief Hx & Hospital Course: SEEN IN HOSPITAL WHEN SHE BECAME UNRESPONSIVE BLOOD SUGAR 166 SHE WAS MILDLY HYPOTENSIVE HAD LEFT SIGHT ARM MOVEMENT LASTED ABOUT 10 MINUTES TOTAL/ NO CLEAR POST ICTAL PERIOD PRESENTATION CONSISTENT WITH METABOLIC SYNDROME/ INFECTION ESPECIALLY WITH HER RECENT ADMISSION FOR SEPSIS/ BACTEREMIA RECENT HX OF HYPOTENSION POSITIVE BLOOD CX STAPH PRODUCTIVE COUGH HYPOXIA SEVERE ANEMIA HX OF BLEEDING DIATHESIS NOW BEING TRANSFUSE PMH; HEMATURIA HX OF ORGANIC HD S/P TAVR HX OF AV STENOSIS HTN HFpEF DIASTOLIC DYSFUNCTION AFIB ON SOTALOL HYPERCOAGULABLE STATE HX OF DVT MORBID OBESITY 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 ANEMIA HYPONATREMIA STABLE LEUKOCYTOSIS RESOLVED Assessment/Plan ABX VANCO MEROPENEM NEW ERNESTINA CATH ONCE BLOOD CX NEGATIVE AND FEVER RESOLVED AND LEUKOCYTOSIS RESOLVES START PT BLOOD CX UCX TRANSFUSE 2 UNITS S/P TRANSFUSION HGH IS >8mg/dl HOLD OFF ON DISCONTINUING ERNESTINA CATH ABX PT TRANSFUSE 2 UNITS CORRECT K+ WITH 80 meq OF K DC HOME K CORRECTED S/P 2 UNITS PRBC check ua MONITOR HYPONATREMIA FLUID RESTRICTION SKIN TEAR RIGHT FOREARM PT PT CONTINUE TO BE IN HOSPITAL SHE WILL CONTINUE TO DEVELOP ISSUES DISCHARGE TO HOME WITH HOME HEALTH AND PT WITH IV ABX BLOOD CX NEGATIVE BUT UPWARD TREND OF WBC BECAUSE OF IATROGENIC SKIN TRAUMA Condition at Discharge: Guarded Final Diagnosis/Problems List HOSPITAL WHEN SHE BECAME UNRESPONSIVE BLOOD SUGAR 166 SHE WAS MILDLY HYPOTENSIVE HAD LEFT SIGHT ARM MOVEMENT LASTED ABOUT 10 MINUTES TOTAL/ NO CLEAR POST ICTAL PERIOD PRESENTATION CONSISTENT WITH METABOLIC SYNDROME/ INFECTION ESPECIALLY WITH HER RECENT ADMISSION FOR SEPSIS/ BACTEREMIA RECENT HX OF HYPOTENSION POSITIVE BLOOD CX STAPH PRODUCTIVE COUGH HYPOXIA SEVERE ANEMIA HX OF BLEEDING DIATHESIS NOW BEING TRANSFUSE PMH; HEMATURIA HX OF ORGANIC HD S/P TAVR HX OF AV STENOSIS HTN HFpEF DIASTOLIC DYSFUNCTION AFIB ON SOTALOL HYPERCOAGULABLE STATE HX OF DVT MORBID OBESITY 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 ANEMIA HYPONATREMIA STABLE LEUKOCYTOSIS RESOLVED Discharge Disposition: Home Discharge Instruct/Medications Diet: Cardiac 2g Na,low cholest Activity: Light activity Follow Up/Referral: 2 WEEKS Medications: CONT HOME MEDS Scheduled Acetaminophen (8 Hour Arthritis Pain Rel), 650 MG PO TID, (Reported) Apixaban Base (Eliquis), 2.5 MG PO BID, (Reported) Apremilast Base (Otezla), 1 TAB PO BID, (Reported) Aspirin (Aspirin 81), 1 TAB PO DAILY, (Reported) Bumetanide (Bumex), 1 TAB PO DAILY, (Reported) Clotrimazole W/ Betamethasone (Clotrimazole/Betamethason 1-0.05 %), 1 CRE EX BID, (Reported) Esomeprazole Magnesium (Esomeprazole Magnesium Dr), 40 MG PO DAILY, (Reported) Levodopa W/Carbidopa (Sinemet), 2 TAB PO HS, (Reported) Levothyroxine Sodium (Levothyroxine Sodium), 1 TAB PO DAILY, (Reported) Levothyroxine Sodium (Levothyroxine Sodium), 50 MCG PO QAM@0600 Linaclotide Base (Linzess), 1 CAP PO DAILY, (Reported) Metolazone (Metolazone), 3 TAB PO QWEEKLY, (Reported) Ondansetron HCl (Ondansetron Hydrochloride), 1 TAB PO Q8HPRN, (Reported) Potassium Chloride (Potassium Chloride ER), 1 TAB PO BID, (Reported) Ropinirole Hydrochloride (Requip), 1 TAB PO HS, (Reported) Sotalol Hcl (Sotalol Hcl), 0.5 TAB PO BID, (Reported) Scheduled PRN Albuterol Sulfate (Ventolin Mdi), 2 PUFF IN Q6HR PRN for SHORTNESS OF BREATH, (Reported) Albuterol Sulfate (Albuterol Sulfate), 1 VIAL NEB Q6HR PRN for SHORTNESS OF BREATH, (Reported) Betamethasone Dipropionate (Betamethasone Dipropionat), 1 APPLIC TOP DIRECTED PRN for ECZEMA RASH, (Reported) Fluticasone Propionate (Nasal) (Flonase Allergy Relief), 1 SPR NA BID PRN for ALLERGIES, (Reported) Tramadol HCl (Tramadol Hydrochloride), 1 TAB PO QID PRN for MODERATE PAIN (4-6 PAIN SCALE), (Reported) Miscellaneous Medications Clobetasol Propionate (Clobetasol Propionate), TOP, (Reported) Discharge Statement: "Patient was advised to return to the ER or call 911 if any headaches, dizziness, shortness of breath, chest pain, abdominal pain, bleeding, fevers, or worsening of medical condition. Patient was counseled about treatment plan, medications, possible side effects, patientverbalized understanding. All questions were answered to the best of my ability. This discharge took greater then 30 minutes in planning, reviewing documentation, counseling the patient, and discussing with other team members." ASSESSMENT ASSESSMENT Assessment MONTRELL RANKIN MD Jan 29, 2025 13:28
== END 2025-01-29 22:10 | disposition home health service (06) | DRG 871 ==
LOC: EDBD 13:28 → ER 13:28 → OVERFLOW 21:49 → CENTRAL 01-16 04:11 → TELE-CENTR 01-16 21:49 → CENTRAL 01-19 21:23
PROVIDERS: ADMIT Student in an Organized Health Care Education/Training Program; ATTEND Student in an Organized Health Care Education/Training Program
PROC: 30233N1 Transfusion of Nonautologous Red Blood Cells into Peripheral Vein, Percutaneous Approach (ICD-10-PCS; principal; 2025-01-18)
DX: A41.52 Sepsis due to Pseudomonas (principal); G93.41 Metabolic encephalopathy; D68.59 Other primary thrombophilia; I50.32 Chronic diastolic (congestive) heart failure; E87.1 Hypo-osmolality and hyponatremia; I48.21 Permanent atrial fibrillation; N13.6 Pyonephrosis; I13.0 Hypertensive heart and chronic kidney disease with heart failure and stage 1 through stage 4 chronic kidney disease, or unspecified chronic kidney disease; E87.6 Hypokalemia; E83.42 Hypomagnesemia; E88.810 Metabolic syndrome; E66.01 Morbid (severe) obesity due to excess calories; Q63.1 Lobulated, fused and horseshoe kidney; D50.9 Iron deficiency anemia, unspecified; L89.302 Pressure ulcer of unspecified buttock, stage 2; E03.9 Hypothyroidism, unspecified; E05.90 Thyrotoxicosis, unspecified without thyrotoxic crisis or storm; G20.C Parkinsonism, unspecified; E07.81 Sick-euthyroid syndrome; R56.9 Unspecified convulsions; S51.811A Laceration without foreign body of right forearm, initial encounter; L89.152 Pressure ulcer of sacral region, stage 2; E11.22 Type 2 diabetes mellitus with diabetic chronic kidney disease; E66.812 Obesity, class 2; N18.9 Chronic kidney disease, unspecified; Z95.2 Presence of prosthetic heart valve; Z88.0 Allergy status to penicillin; Z88.2 Allergy status to sulfonamides; Z88.5 Allergy status to narcotic agent; Z88.1 Allergy status to other antibiotic agents; Z79.01 Long term (current) use of anticoagulants; Z79.899 Other long term (current) drug therapy; Z87.442 Personal history of urinary calculi; Z80.8 Family history of malignant neoplasm of other organs or systems; Z86.718 Personal history of other venous thrombosis and embolism; X58.XXXA Exposure to other specified factors, initial encounter; Y93.89 Activity, other specified; Y92.89 Other specified places as the place of occurrence of the external cause; Y99.8 Other external cause status; Z79.82 Long term (current) use of aspirin
CPT/HCPCS: 36415; 70450; 71045; 80048; 80053; 80202; 81001; 82270; 82565; 82728; 83540; 83550; 83605; 83735; 83880; 84439; 84443; 84481; 84484; 85007; 85014; 85018; 85025; 85027; 85379; 85610; 85730; 86850; 86900; 86901; 86920; 87040; 87077; 87081; 87086; 87088; 87186; 93005; 93886; 93970; 97110; 97116; 97163; 97530; G0378; G0463; J0714; J1335; J1642; J2185; J2405; J2470; J3480; J7060

== ENCOUNTER 2025-01-31 10:30 | Inpatient (IN) | payer MEDICARE, OTHER, MEDICAID ==
[~2025-01-31] VITALS: Ht 165.1 cm; Wt 117.0 kg
[~2025-01-31 10:30] MED LIST changes: -ALBUAER3 IN; +ASPI-325 PO; -ASPI-498 PO; +BUME2TAB5 PO; -BUMEX2MG PO; -CLOB0.059 TOP; +CLOTCRE3 TOP; -DIP005TP TOP; +LEVO50TA7 PO; -ONDA-144 PO; +ROPI1TAB78 PO; -TRAM50TA2 PO
--- NOTE | 2025-01-31 10:49 | ED.PDOC ---
Altered Mental Status HPI Comments 79y F who presents to the ED via EMS for chief complaint of ALOC. EMS states pt was at [facility] and discarged yesterday to home with family. Pt family states pt was alert and oriented upon arrival to private residence and states earlier this AM, was acting altered and unable to answer any questions and EMS was called. EMS arrived on scene and noted pt is altered and was ax0x0 but family states pt baseline is ax0x4 and was brought to the ED for further evaluation. Pt was discharged on 01/29 from after being treated for metabolic syndrome and sepsis and discharged on antibiotics. Pt has extensive medical history including iron- deficiency anemia, , sacral ulcer, ESBL UTI, horseshoe kidney, atrial fibrillation, heart failure with preserved ejection fraction, and parkinsonism Time Seen by MD: 10:48 Primary Care Provider: UNKNOWN Reviewed Notes: Medications, Allergies Allergies: Coded Allergies: Penicillins (Unverified Allergy, Severe, 03/16/15) Sulfa Antibiotics (Unverified Allergy, Severe, 03/16/15) Morphine (Verified Allergy, Intermediate, ALTERED, 01/31/18) PER PATIENT AND HER DAUGHTER SHE CAN NOT HAVE Ceftriaxone (Verified Allergy, Unknown, 01/31/18) COUGH AND CHILLS Home Meds Active Scripts Levothyroxine Sodium (Levothyroxine Sodium) 50 Mcg Tab, 50 MCG PO QAM@0600 for 30 Days, #30 TAB Prov:MARÍA SKY RESIDENT 01/26/25 Reported Medications Clotrimazole W/ Betamethasone (Clotrimazole/Betamethason 1-0.05 %) 1 Cre Cre, 1 CRE EX BID for 120 Days, #60 01/03/25 Linaclotide Base (LINZESS) 290 Mcg Cap, 1 CAP PO DAILY for 30 Days, #30 01/03/25 Ondansetron HCl (Ondansetron Hydrochloride) 4 Mg Tab, 1 TAB PO Q8HPRN 04/25/24 Esomeprazole Magnesium (Esomeprazole Magnesium Dr) 40 Mg Cap, 40 MG PO DAILY, CAP 11/03/23 Acetaminophen (8 Hour Arthritis Pain Rel) 650 Mg Tab, 650 MG PO TID for ARTHRITIS 01/23/22 Levodopa W/Carbidopa (Sinemet) 10 /100 Tab, 2 TAB PO HS for TREMORS 01/23/22 Albuterol Sulfate (Albuterol Sulfate) 0.083 % Neb, 1 VIAL NEB Q6HR PRN for SHORTNESS OF BREATH 02/05/20 Fluticasone Propionate (Nasal) (Flonase Allergy Relief) 50 Mcg/Act Spr, 1 SPR NA BID PRN for ALLERGIES 02/05/20 Apremilast Base (Otezla) 30 Mg Tab, 1 TAB PO BID for ARTHRITIS 03/28/19 Tramadol HCl (Tramadol Hydrochloride) 50 Mg Tab, 1 TAB PO QID PRN for MODERATE PAIN (4-6 PAIN SCALE) 10/30/18 Ropinirole Hydrochloride (Requip) 1 Mg Tab, 1 TAB PO HS for RESTLESS LEGS for 90 Days, #90 03/17/15 Discontinued Reported Medications Metolazone (Metolazone) 5 Mg Tab, 3 TAB PO QWEEKLY for 84 Days, #36 01/03/25 Bumetanide (Bumex) 2 Mg Tab, 1 TAB PO DAILY for 90 Days, #90 12/31/24 Clobetasol Propionate (Clobetasol Propionate) 0.05 % Deepika, TOP 04/25/24 Sotalol Hcl (Sotalol Hcl) 80 Mg Tab, 0.5 TAB PO BID for 90 Days, #90 04/25/24 Apixaban Base (ELIQUIS) 2.5 Mg Tab, 2.5 MG PO BID, TAB 11/17/23 Betamethasone Dipropionate (Betamethasone Dipropionat) 0.05 % Cre, 1 APPLIC TOP DIRECTED PRN for ECZEMA RASH for 30 Days, #30 01/23/22 Aspirin (ASPIRIN 81) 81 Mg Tab, 1 TAB PO DAILY for HEART ATTACK PREVENTION 02/05/20 Potassium Chloride (Potassium Chloride ER) 20 Meq Tab, 1 TAB PO BID for SUPPLEMENT for 90 Days, #180 02/05/20 Albuterol Sulfate (VENTOLIN MDI) 90 Mcg Ih, 2 PUFF IN Q6HR PRN for SHORTNESS OF BREATH 04/21/18 Levothyroxine Sodium (Levothyroxine Sodium) 75 Mcg Tab, 1 TAB PO DAILY for HYPOTHYROIDISM, 5 Refills 03/17/15 Information Source: Patient Mode of Arrival: Ambulatory Past Medical History PAST MEDICAL HISTORY: AFIB, Anemia, Arthritis, CHF, CKF, DM, HTN, Kidney Stones , Thyroid Surgical History: Tonsillectomy TEACHING FELLOW History: No Pertinent TEACHING FELLOW History Family History Family History: Reviewed,noncontributory to illness, No family hx of Cancer, No family hx of DM, No family hx of HTN, No family hx ofKidney christine, No family hx of Liver christine, No family hx of Lung christine, No family hx of Stroke, Family hx of heart christine Social History Smoker: Non-Smoker Alcohol: Denies ETOH Use Drugs: Denies Drug Use Lives In: Home, [facility] All Other Systems: Reviewed and Negative (see HPI) Physical Exam General Appearance: Moderate Distress, Obese HEENT: Normal ENT Inspection, PERRL/EOMI Neck: Full Range of Motion, Non-Tender, Normal, Normal Inspection Respiratory: Chest Non-Tender, Lungs Clear, No Accessory Muscle Use, No Respiratory Distress, Normal Breath Sounds Cardiovascular: No Edema, No JVD, No Murmur, No Gallop, Normal Peripheral Pulses, Regular Rate/Rhythm Breast Exam: Deferred Gastrointestinal: No Organomegaly, Non Tender, No Pulsatile Mass, Normal Bowel Sounds, Soft, Other (Morbid obesity ) Genitalia: Deferred Pelvic: Deferred Rectal: Deferred Extremities: Decreased range of motion, Leg edema, Swelling, Tender, Other (Patient with a severe obesity including the legs and restricted to bed) Neurologic: Disoriented, Motor Weakness, Speech Problem Cerebellar Function: NOT DONE Reflexes: NOT DONE Skin: Wounds, Other (Multiple wounds throughout her body multiple pressure ulcers at different levels) Lymphatic: No Adenopathy Was a procedure done? Was a procedure done?: No Differential Diagnosis (ALOC) Differential Diagnosis: Dehydration, Hypoglycemia, Encephalopathy, Sepsis, Hypoxemia, CVA, Heart Failure, Renal Failure X-Ray, Labs, Meds, VS Vital Signs Date Time Temp Pulse Resp B/P (MAP) Pulse Ox O2 Delivery O2 Flow Rate FiO2 01/31/25 18:49 73/51 01/31/25 17:38 100 01/31/25 12:01 108 76 120/72 (88) 01/31/25 11:15 103 16 98 Room Air* 0 21 01/31/25 11:00 97.9 103 76 96/75 (82) 98 97.9 01/31/25 10:44 97.6 110 18 111/73 97 97.6 Lab Test 01/31/25 16:30 01/31/25 13:09 01/31/25 11:10 01/31/25 11:02 Range/Units Urine Color Colorless Yellow Urine Clarity Turbid H Clear Urine pH 6.0 5.0-9.0 Urine Specific [place] 1.015 1.001-1.035 Urine Protein 1+ H Negative Urine Ketones Trace Negative Urine Blood 1+ H Negative /uL Urine Nitrite Negative Negative Urine Bilirubin Negative Negative Urine Urobilinogen Normal Negative mg/dL Urine Leukocyte Esterase 3+ Negative /uL Urine RBC 9 0 - 4 /hpf Urine WBC Clumps Present None Seen /hpf Urine Microscopic WBC 416 H 0-5 /HPF Urine Squamous Epithelial Cells Few <5 /hpf Urine Bacteria Few H None Seen /hpf Urine Hyaline Casts Few 0 - 2 /lpf Urine Mucus Few None Seen Urine Yeast (Budding) Moderate None Seen /hpf Urine Glucose Normal Normal mg/dL POC Glucose 96 69 L 70-106 mg/dl White Blood Count 13.3 #H 4.4-10.8 10^3/uL Red Blood Count 4.31 4.0-5.20 10^6/uL Hemoglobin 12.2 12.2-16.2 g/dL Hematocrit 36.5 36.0-46.0 % Mean Corpuscular Volume 84.6 80.0-100.0 fL Mean Corpuscular Hemoglobin 28.2 28.0-32.0 pg Mean Corpuscular Hemoglobin Concent 33.3 32.0-36.0 g/dL Red Cell Distribution Width 18.3 H 11.8-14.3 % Platelet Count 187 140-450 10^3/uL Mean Platelet Volume 8.2 6.9-10.8 fL Neutrophils (%) (Auto) 86.2 H 37.0-80.0 % Lymphocytes (%) (Auto) 5.7 L 10.0-50.0 % Monocytes (%) (Auto) 7.4 0.0-12.0 % Eosinophils (%) (Auto) 0.3 0.0-7.0 % Basophils (%) (Auto) 0.4 0.0-2.0 % Neutrophils # (Auto) 11.5 H 1.6-8.6 10 ^3/uL Lymphocytes # (Auto) 0.8 0.4-5.4 10 ^3/uL Monocytes # (Auto) 1.0 0-1.3 10 ^3/uL Eosinophils # (Auto) 0 0-0.8 10 ^3/uL Basophils # (Auto) 0.1 0-0.2 10 ^3/uL Nucleated Red Blood Cells 0.1 % Prothrombin Time 12.0 H 9.3-11.8 sec Prothrombin Time INR 1.15 0.9-1.15 Activated Partial Thromboplast Time 41.8 H 24.5-34.5 SEC Sodium Level 128 L 136-145 mmol/L Potassium Level 4.2 3.5-5.1 mmol/L Chloride Level 94 L 98-107 mmol/L Carbon Dioxide Level 25 20-31 mmol/L Anion Gap 9 5-15 Blood Urea Nitrogen 69 H 9-23 mg/dL Creatinine 1.11 H 0.550-1.02 mg/dL Glomerular Filtration Rate Calc 50 >90 mL/min BUN/Creatinine Ratio 62.2 H 10.0-20.0 Serum Glucose 72 L 74-106 mg/dL Lactic Acid Level 0.7 0.4-2.0 mmol/L Calcium Level 8.8 8.7-10.4 mg/dL Magnesium Level 1.8 1.6-2.6 mg/dL Total Bilirubin 0.3 0.2-1.0 mg/dL Aspartate Amino Transferase (AST) 22 13-40 U/L Alanine Aminotransferase (ALT) < 9 7-40 U/L Alkaline Phosphatase 121 H 46-116 U/L Troponin I High Sensitivity 7 </=34 ng/L Total Protein 4.5 L 5.7-8.2 g/dL Albumin 2.5 L 3.2-4.8 g/dL Current Medications Medications (Trade) Dose Ordered Sig/Taran Route Start Time Stop Time Status Last Admin Sodium Chloride 1,000 ml @ 75 mls/hr [id number] ONCE IV 01/31/25 15:30 02/01/25 04:49 01/31/25 16:23 Dopamine HCl/ Dextrose 250 ml @ 23.813 mls/ hr [id number] IV 01/31/25 18:15 01/31/25 18:[address] [address] Ph: [phone] DIAGNOSTIC IMAGING Diagnostic Imaging Report : [id number] Signed PATIENT: TANESHA FONSECA ACCT: [id number] UNIT: [id number] : 1945 LOC: ER ROOM / BED: / AGE / SEX: 79 / F ADM STATUS: REG ER SERVICE 1046 ORDERING PHYSICIAN: PARTH KING MD PROCEDURE(s): CXRP - CHEST PORTABLE REASON: aloc ORDER NUMBER(s): [id number], ACCESSION NUMBER(s): [id number] CHEST RADIOGRAPH Indication: aloc Technique: XY CHEST PORTABLE COMPARISON: None FINDINGS: Left subclavian mirna catheter tip projecting over the SVC. The cardiac silhouette is enlarged. The lungs demonstrate left lower lobe airspace opacity The pulmonary vasculature is prominent. Small to moderate left pleural effusion. Aortic valvular prosthesis. There is no pneumothorax. IMPRESSION: As above ATED BY: SIGRID LYNN MD DICTATED DATE/TIME: 01/31/25 1130 SIGNED BY: SIGRID LYNN MD SIGNED DATE/TIME: 01/31/25 1130 CC: X-Ray, Labs, Meds, VS Comment Course in the emergency department eventful patient came in because of disorientation altered level of consciousness patient is bedridden She has a history of Parkinson's disease arthritis thyroid and GERD CBC [id number] with 86% neutrophils and normal H&H INR 1.15 CMP sodium is 128 with a GFR of 50 Lactic acid 0.7 Magnesium 1.8 Troponin seven Albumin 2.7 Urine shows bacteria +3+ leukocyte esterase 1+ protein 1+ blood and multiple we CBC count EKG fibrillation Patient will be admitted for further care Time of 1ST Reevaluation: 10:50 Reevaluation 1ST: Unchanged Time of 2ND Reevaluation: 17:11 Reevaluation 2ND: Unchanged Patient Education/Counseling: Diagnosis, Treatment, Prognosis, Need For Follow Up, Other (pt currently altered) Family Education/Counseling: Diagnosis, Treatment, Prognosis, Need For Follow Up, No Family Present SEPSIS Sepsis Screen Physician Orders Chest Portable (01/31/25 10:46) Hook Catheters (01/31/25 10:46) Receiving Barn Custodian (01/31/25 10:46) Pulse Oximetry (01/31/25 10:46) Blood Pressure (01/31/25 10:46) Heplock Iv (01/31/25 10:46) Accucheck (01/31/25 10:46) Blood Culture (01/31/25 10:46) Sodium Chloride 0.9% (01/31/25 15:30) Vancomycin 1gm/250ml Kit (01/31/25 18:15) Dopamine 1600mcg/Ml D5w (01/31/25 18:15) Vital Signs Date Time Temp Pulse Resp B/P (MAP) Pulse Ox O2 Delivery O2 Flow Rate FiO2 01/31/25 18:49 73/51 01/31/25 17:38 100 01/31/25 12:01 108 76 120/72 (88) 01/31/25 11:15 103 16 98 Room Air* 0 21 01/31/25 11:00 97.9 103 76 96/75 (82) 98 97.9 01/31/25 10:44 97.6 110 18 111/73 97 97.6 Laboratory Tests Test 01/31/25 11:10 Lactic Acid Level 0.7 mmol/L (0.4-2.0) White Blood Count 13.3 10^3/uL (4.4-10.8) #H Medications Medications Dose Ordered Sig/Taran Route Start Time Stop Time Status Last Admin Dose Admin Dopamine HCl/ Dextrose 250 ml @ 23.813 mls/ hr [id number] IV 01/31/25 18:15 01/31/25 18:49 Sodium Chloride 1,000 ml @ 75 mls/hr [id number] ONCE IV 01/31/25 15:30 02/01/25 04:49 01/31/25 16:23 Departure 1 Departure Time of Disposition: 17:11 Impression: Primary Impression: Altered mental status Additional Impressions: Generalized weakness Morbid obesity due to excess calories UTI (urinary tract infection) Qualified Codes: N30.01 - Acute cystitis with hematuria Sepsis due to urinary tract infection Disposition: 09 ADMITTED INPATIENT Admit to: Tele Condition: Serious Critical Care Note Critical Care Time?: No Stability Stability form required: Yes Unstable for transfer: Telemetry monitoring (Telemetry monitoring required), Requires medication (Requires Med for stabilization) Heart Score Heart Score: Heart Score Response (Comments) Value History Slightly Suspicious 0 EKG Repolarization Disturb 1 Age >65 2 Risk Factors >3 or Hx ASHD 2 Troponin Normal limit 0 Total 5 I personally scribed for PARTH KING MD ([email or web address]) on 01/31/25 at 10:49. Electronically submitted by Jose Vora ([facility]). I personally scribed for PARTH KING MD ([email or web address]) on 01/31/25 at 11:32. Electronically submitted by Jose Vora ([facility] [place]). PARTH KING MD Jan 31, 2025 10:49
[2025-01-31 11:15] VITALS: PULSE 103; RESP 16; O2SAT 98
--- NOTE | 2025-01-31 11:29 | DVH ---
CHEST RADIOGRAPH Indication: aloc Technique: XY CHEST PORTABLE COMPARISON: None FINDINGS: Left subclavian mirna catheter tip projecting over the SVC. The cardiac silhouette is enlarged. The lungs demonstrate left lower lobe airspace opacity The pulmon toro vasculature is prominent. Small to moderate left pleural effusion. Aortic valvular prosthesis. T here is no pneumothorax. IMPRESSION: As above
[2025-01-31 11:39] LABS: Hematocrit 36.5 % (36.0-46.0); Hemoglobin 12.2 g/dL (12.2-16.2); Mean Corpuscular Hemoglobin 28.2 pg (28.0-32.0); Mean Corpuscular Volume 84.6 fL (80.0-100.0); Nucleated Red Blood Cells % 0.1 %
[2025-01-31 11:54] LABS: INR 1.15 (0.9-1.15); Partial Thromboplastin Time 41.8 SEC (24.5-34.5); Prothrombin Time 12.0 sec (9.3-11.8)
[2025-01-31 11:57] LABS: Alanine Aminotransferase < 9 U/L (7-40); Albumin 2.5 g/dL (3.2-4.8); Alkaline Phosphatase 121 U/L (46-116); Anion Gap 9 (5-15); BUN/Creatinine Ratio 62.2 (10.0-20.0); Blood Urea Nitrogen 69 mg/dL (9-23); Calcium 8.8 mg/dL (8.7-10.4); Carbon Dioxide 25 mmol/L (20-31); Chloride 94 mmol/L (98-107); Glucose 72 mg/dL (74-106); Magnesium 1.8 mg/dL (1.6-2.6); Potassium 4.2 mmol/L (3.5-5.1); Sodium 128 mmol/L (136-145); Total Protein 4.5 g/dL (5.7-8.2)
[2025-01-31 11:58] LABS: Bilirubin, Total 0.3 mg/dL (0.2-1.0)
[2025-01-31] MEDS: SODIUM CHLORIDE 0.9% 1,000 ML IV ONE ×2 (12:56→16:23)
[2025-01-31] MEDS: ACETAMINOPHEN 325 MG TAB PO ONE (15:00)
[2025-01-31 18:01] LABS: Urine Budding Yeast MODERATE /hpf (None Seen); Urine Protein, UAD 1+ (Negative); Urine WBC Clumps PRESENT /hpf (None Seen)
--- NOTE | 2025-01-31 18:03 | ECG ---
[facility] Test Date: 2025-01-31 Test Time: 17:38:31 Pat Name: TANESHA FONSECA Department: Room: 0262 Gender: F Occupational Therapy Instructor: JACQUES : 1945 Requested By: PARTH KING Order Number: [id number] Reading MD: Jamal Overton Measurements Intervals [place] Rate: 100 P: 0 IA: 0 QRS: -29 QRSD: 100 T: 96 QT: 404 QTc: 522 Interpretive Statements Atrial fibrillation Borderline left axis deviation Low voltage, precordial leads Borderline repolarization abnormality Prolonged QT interval Artifact in lead(s) I,II,III,aVR,aVL,aVF Electronically Signed On 02-06-2025 19:12:21 PDT by Jamal Overton Please click the below link to view image of tracing.
[2025-01-31] MEDS ORDERED: VANCOMYCIN 1GM/250ML KIT 250 ML IV ONE (18:15)
[2025-01-31] MEDS: DOPamine 1600MCG/ML D5W 250 ML IV SCH (18:49)
[2025-01-31] MEDS: NOREPINEPHRINE 8 MG/250ML KIT 250 ML IV SCH (19:00)
[2025-01-31] MEDS ORDERED: MORPHINE SULFATE INJ 2 MG/ml SYRG IV PRN (19:30)
[2025-01-31] MEDS: SODIUM CHLORIDE 0.9% 500 ML IV ONE ×2 (19:30→20:15)
[2025-01-31] MEDS ORDERED: NITROGLYCERIN 0.4 MG SL TAB SL PRN (19:30)
[2025-01-31] MEDS: VANCOMYCIN 500mg/100mL 100 ML IV ONE (19:30)
[2025-01-31 20:00] VITALS: PULSE 101; RESP 12; O2SAT 100
--- NOTE | 2025-01-31 20:19 | DVH ---
CLINICAL HISTORY: HEADACHE TECHNIQUE: Helical imaging carried out from skull base to vertex without intravenous contrast. This e xam was performed according to our departmental dose optimization program. Up-to-date CT equipment an d radiation dose reduction techniques are utilized as appropriate. 56.83 CTDIVol: 56.83 mGy DLP: 1024.64 mGy-cm WID: COMPARISON: CT HEAD WITHOUT CONTRAST on DOS: 01/15/25 FINDINGS: Generalized cerebral volume loss with concordant prominence of the subarachnoid spaces and ventricles . Mild patchy low attenuation in the cerebral white matter consistent with nonspecific white matter d isease. There is no midline shift or mass effect. The barkley white matter interfaces are maintained. The basal cisterns are patent. There is no evidence of acute intracranial hemorrhage or extra-axial fluid colle ction. The mastoid air cells and visualized paranasal sinuses are well-aerated. Prior right ocular le ns replacement. multiple dental caries and periapical lucencies in the remaining teeth. IMPRESSION: 1. No acute intracranial abnormality. 2. Generalized cerebral volume loss and mild chronic microvascular ischemic change. 3. Dental caries and periapical lucencies in multiple remaining maxillary and mandibular teeth.
[2025-01-31] MEDS: CARBIDOPA W LEVODOPA 10/100mg TABLET PO SCH (22:00)
[2025-01-31 22:37] VITALS: BP 82/55; PULSE 19; RESP 12; O2SAT 98
[2025-02-01] VITALS (16 sets, daily range): PULSE 76–102; RESP 10–17; O2SAT 98–100
--- NOTE | 2025-02-01 05:16 | DVHHP2 ---
History of Present Illness Reason for Visit: Altered mental status History of Present Illness 79-year-old female presents for evaluation of altered mental status. Patient was recently discharged after being treated for sepsis. Yesterday patient was acting lethargic and altered therefore family brought her in for further evalu ation. Patient is lethargic oriented times two. No unilateral weakness noted or slurred speech. No cardiac or respiratory symptoms Past Medical History CHF, chronic kidney disease, diabetes mellitus, hypertension, thyroid, anemia, A Fib Past Surgical History Tonsillectomy Family History Noncontributory Smoke: No ALCOHOL: none Drugs: None Lives: with Family Review of Systems Review of Systems Review of systems are limited due to the patient's altered mental status. Allergies: Coded Allergies: Penicillins (Unverified Allergy, Severe, 03/16/15) Sulfa Antibiotics (Unverified Allergy, Severe, 03/16/15) Morphine (Verified Allergy, Intermediate, ALTERED, 01/31/18) PER PATIENT AND HER DAUGHTER SHE CAN NOT HAVE Ceftriaxone (Verified Allergy, Unknown, 01/31/18) COUGH AND CHILLS Medications Current Medications Medications Dose Ordered Sig/Taran Route Start Time Stop Time Status Last Admin Dose Admin Norepinephrine Bitartrate 250 ml @ 3.75 mls/hr Q24H IV 01/31/25 19:00 02/01/25 00:30 3.75 MLS/HR Levofloxacin/ Dextrose 100 ml @ 100 mls/hr DAILY IV 02/01/25 10:00 Ondansetron HCl 4 mg Q4HP PRN IV 01/31/25 19:30 Enoxaparin Sodium 40 mg DAILY SC 02/01/25 10:00 Acetaminophen 650 mg Q6HP PRN PO 01/31/25 19:30 Nitroglycerin 0.4 mg Q5MINP PRN SL 01/31/25 19:30 Carbidopa/Levodopa 2 tab HS PO 01/31/25 22:00 Levothyroxine Sodium 50 mcg QAM@0600 PO 02/01/25 06:00 Albuterol 2.5 mg Q6HPRN PRN NEB 01/31/25 19:30 Acetaminophen/ Hydrocodone Bitart 1 tab Q6HPRN PRN PO 02/01/25 03:45 Exam Vital Signs Vital Signs Date Time Temp Pulse Resp B/P (MAP) Pulse Ox O2 Delivery O2 Flow Rate FiO2 02/01/25 03:45 115 14 113/83 (93) 100 01/31/25 20:00 98.0 98.0 01/31/25 20:00 Room Air* 0 21 Exam Gen: 79-year-old female in mild distress, morbidly obese Skin: Warm, dry, normal color and texture, no rash. HEENT: Normocephalic atraumatic, mucous membranes moist and pink. Neck: Cervical and supraclavicular nodes normal without enlargement, trachea is midline, thyroid gland is normal without masses. Pulmonary: Clear to auscultation and percussion bilaterally. Cardiac: Regular rate and rhythm. No murmur Abdomen: Soft, nontender, nondistended, bowel sounds present all 4 quadrants, no guarding, no rigidity, no organomegaly. Extremities: No cyanosis, clubbing, no edema Neuro: Cranial nerves II through XII grossly intact, normal affect and speech, no focal motor deficits. Labs/Xrays ORDERING PHYSICIAN: PARTH KING MD PROCEDURE(s): CXRP - CHEST PORTABLE REASON: aloc ORDER NUMBER(s): [id number], ACCESSION NUMBER(s): [id number] CHEST RADIOGRAPH Indication: aloc Technique: XY CHEST PORTABLE COMPARISON: None FINDINGS: Left subclavian mirna catheter tip projecting over the SVC. The cardiac silhouette is enlarged. The lungs demonstrate left lower lobe airspace opacity The pulmonary vasculature is prominent. Small to moderate left pleural effusion. Aortic valvular prosthesis. There is no pneumothorax. IMPRESSION: As above RING PHYSICIAN: PARTH KING MD PROCEDURE(s): HWOCT - HEAD WITHOUT CONTRAST REASON: HEADACHE ORDER NUMBER(s): [id number], ACCESSION NUMBER(s): [id number] CLINICAL HISTORY: HEADACHE TECHNIQUE: Helical imaging carried out from skull base to vertex without intravenous contrast. This exam was performed according to our departmental dose optimization program. Up-to-date CT equipment and radiation dose reduction techniques are utilized as appropriate. 56.83 CTDIVol: 56.83 mGy DLP: 1024.64 mGy-cm WID: COMPARISON: CT HEAD WITHOUT CONTRAST on DOS: 01/15/25 FINDINGS: Generalized cerebral volume loss with concordant prominence of the subarachnoid spaces and ventricles. Mild patchy low attenuation in the cerebral white matter consistent with nonspecific white matter disease. There is no midline shift or mass effect. The barkley white matter interfaces are maintained. The basal cisterns are patent. There is no evidence of acute intracranial hemorrhage or extra-axial fluid collection. The mastoid air cells and visualized paranasal sinuses are well-aerated. Prior right ocular lens replacement. multiple dental caries and periapical lucencies in the remaining teeth. IMPRESSION: 1. No acute intracranial abnormality. 2. Generalized cerebral volume loss and mild chronic microvascular ischemic change. 3. Dental caries and periapical lucencies in multiple remaining maxillary and mandibular teeth. Labs Test 01/31/25 16:30 01/31/25 13:09 01/31/25 11:10 Range/Units Urine Color Colorless Yellow Urine Clarity Turbid H Clear Urine pH 6.0 5.0-9.0 Urine Specific [place] 1.015 1.001-1.035 Urine Protein 1+ H Negative Urine Ketones Trace Negative Urine Blood 1+ H Negative /uL Urine Nitrite Negative Negative Urine Bilirubin Negative Negative Urine Urobilinogen Normal Negative mg/dL Urine Leukocyte Esterase 3+ Negative /uL Urine RBC 9 0 - 4 /hpf Urine WBC Clumps Present None Seen /hpf Urine Microscopic WBC 416 H 0-5 /HPF Urine Squamous Epithelial Cells Few <5 /hpf Urine Bacteria Few H None Seen /hpf Urine Hyaline Casts Few 0 - 2 /lpf Urine Mucus Few None Seen Urine Yeast (Budding) Moderate None Seen /hpf Urine Glucose Normal Normal mg/dL POC Glucose 96 70-106 mg/dl White Blood Count 13.3 #H 4.4-10.8 10^3/uL Red Blood Count 4.31 4.0-5.20 10^6/uL Hemoglobin 12.2 12.2-16.2 g/dL Hematocrit 36.5 36.0-46.0 % Mean Corpuscular Volume 84.6 80.0-100.0 fL Mean Corpuscular Hemoglobin 28.2 28.0-32.0 pg Mean Corpuscular Hemoglobin Concent 33.3 32.0-36.0 g/dL Red Cell Distribution Width 18.3 H 11.8-14.3 % Platelet Count 187 140-450 10^3/uL Mean Platelet Volume 8.2 6.9-10.8 fL Neutrophils (%) (Auto) 86.2 H 37.0-80.0 % Lymphocytes (%) (Auto) 5.7 L 10.0-50.0 % Monocytes (%) (Auto) 7.4 0.0-12.0 % Eosinophils (%) (Auto) 0.3 0.0-7.0 % Basophils (%) (Auto) 0.4 0.0-2.0 % Neutrophils # (Auto) 11.5 H 1.6-8.6 10 ^3/uL Lymphocytes # (Auto) 0.8 0.4-5.4 10 ^3/uL Monocytes # (Auto) 1.0 0-1.3 10 ^3/uL Eosinophils # (Auto) 0 0-0.8 10 ^3/uL Basophils # (Auto) 0.1 0-0.2 10 ^3/uL Nucleated Red Blood Cells 0.1 % Prothrombin Time 12.0 H 9.3-11.8 sec Prothrombin Time INR 1.15 0.9-1.15 Activated Partial Thromboplast Time 41.8 H 24.5-34.5 SEC Sodium Level 128 L 136-145 mmol/L Potassium Level 4.2 3.5-5.1 mmol/L Chloride Level 94 L 98-107 mmol/L Carbon Dioxide Level 25 20-31 mmol/L Anion Gap 9 5-15 Blood Urea Nitrogen 69 H 9-23 mg/dL Creatinine 1.11 H 0.550-1.02 mg/dL Glomerular Filtration Rate Calc 50 >90 mL/min BUN/Creatinine Ratio 62.2 H 10.0-20.0 Serum Glucose 72 L 74-106 mg/dL Lactic Acid Level 0.7 0.4-2.0 mmol/L Calcium Level 8.8 8.7-10.4 mg/dL Magnesium Level 1.8 1.6-2.6 mg/dL Total Bilirubin 0.3 0.2-1.0 mg/dL Aspartate Amino Transferase (AST) 22 13-40 U/L Alanine Aminotransferase (ALT) < 9 7-40 U/L Alkaline Phosphatase 121 H 46-116 U/L Troponin I High Sensitivity 7 </=34 ng/L Total Protein 4.5 L 5.7-8.2 g/dL Albumin 2.5 L 3.2-4.8 g/dL SEPSIS Sepsis Screen Date sepsis recognized/suspect: Jan 31, 2025 Time Sepsis recognized/suspect: 2028 Recent Procedure: No On Antibiotic Therapy: Yes Respiratory Rate >20: No Heart Rate >90: Yes Temp<36 C (96.8 F) or >38.3 C: No SBP <90 or MAP <65 mmHG: No New Acute Mental Status Change: No Is the patient on CPAP, BIPAP,: No Physician Orders Order Specialty [place] (02/01/25 02:38) Hydrocodone-Acet 5/325mg Tab ([place] 5/32 (02/01/25 03:45) Vital Signs Date Time Temp Pulse Resp B/P (MAP) Pulse Ox O2 Delivery O2 Flow Rate FiO2 02/01/25 03:45 115 14 113/83 (93) 100 02/01/25 03:30 97/77 02/01/25 03:30 108 14 97/77 (84) 100 02/01/25 03:15 99 17 116/77 (90) 95 02/01/25 03:00 121 13 100/67 (78) 92 02/01/25 02:45 103 15 96/66 (76) 91 02/01/25 02:30 117 18 105/76 (86) 91 02/01/25 02:30 105/76 02/01/25 02:15 102 13 117/83 (94) 96 02/01/25 02:00 108 15 106/63 (77) 97 02/01/25 01:45 102 14 98/68 (78) 95 02/01/25 01:30 103/81 02/01/25 01:30 111 15 103/81 (88) 100 02/01/25 01:15 109 13 116/44 (68) 100 02/01/25 01:00 109 17 110/45 (66) 100 02/01/25 00:45 96 15 110/51 (70) 100 02/01/25 00:30 88/40 02/01/25 00:30 97 14 88/40 (56) 100 02/01/25 00:27 111 16 75/59 (64) 100 02/01/25 00:23 104 12 65/47 (53) 100 02/01/25 00:00 103 13 96/51 (66) 100 01/31/25 23:30 97 13 104/61 (75) 97 01/31/25 23:15 104 14 103/81 (88) 97 01/31/25 23:00 104 12 101/66 (78) 97 01/31/25 22:37 19 12 82/55 98 01/31/25 22:30 83 15 112/68 (83) 97 01/31/25 22:15 96 12 105/64 (78) 98 01/31/25 22:00 101 11 101/47 (65) 96 01/31/25 21:54 101 11 105/32 (56) 96 01/31/25 21:50 99 12 87/47 (60) 97 01/31/25 21:45 99 12 63/40 (48) 96 01/31/25 21:15 102 11 123/101 (108) 99 Medications Medications Dose Ordered Sig/Taran Route Start Time Stop Time Status Last Admin Dose Admin Dopamine HCl/ Dextrose 250 ml @ 23.813 mls/ hr [id number] IV 01/31/25 18:15 01/31/25 19:03 DC 01/31/25 18:49 23.813 MLS/HR Levofloxacin/ Dextrose 100 ml @ 100 mls/hr ONCE ONCE IV 01/31/25 19:30 01/31/25 20:40 DC 01/31/25 22:30 100 MLS/HR Norepinephrine Bitartrate 250 ml @ 3.75 mls/hr Q24H IV 01/31/25 19:00 02/01/25 00:30 3.75 MLS/HR Sodium Chloride 500 ml @ 500 mls/hr Q1H ONCE IV 01/31/25 20:15 01/31/25 21:14 DC 01/31/25 20:15 500 MLS/HR Vancomycin HCl 100 ml @ 200 mls/hr ONCE ONCE IV 01/31/25 19:30 01/31/25 19:59 DC 01/31/25 19:30 200 MLS/HR Assessment/Plan Assessment/Plan Assessment Metabolic encephalopathy Urinary tract infection Morbid obesity Diabetes mellitus ? Dementia Acute kidney injury Plan Admit the patient to [facility] [place] to the hospitalist Real Urine bacterial culture pending Resume home medications Continue treatment per orders. Plan discussed with: Patient My Orders Orders - SELMA DAVIDCNP Procedure Category Date Status Time Levofloxacin 500mg PHA 02/01/25 In Process (Levaquin 500mg/ 100m 10:00 Urine Bacterial LIA 01/31/25 In Process Culture 19:16 Admit ADMIT 01/31/25 Transmitted 19:16 Ondansetron Hcl PHA 01/31/25 In Process (Zofran) 19:30 Complete Blood Count LAB 02/01/25 Logged 04:00 Comprehensive LAB 02/01/25 Logged Metabolic Panel 04:00 Cardiac DIET 02/01/25 Transmitted Diet-2gna,Lofat,Lochol Breakfast Condition: Unstable [place] 01/31/25 In Process 19:16 Acetaminophen Tablet PHA 01/31/25 In Process (Tylenol Tablet) 19:30 Maintain Bed Rest [place] 01/31/25 In Process 19:16 Sequential [place] 01/31/25 In Process Compression Device Nitroglycerin PHA 01/31/25 In Process Sublingual (Ntrostat 19:30 Stat Ekg For Chest [place] 01/31/25 In Process Pain 19:16 Notify Md Of Changes [facility] 01/31/25 In Process From Base 19:16 Clinical Specialist For [facility] 01/31/25 In Process 24 Hours 19:16 Emergency Dysrhythmia [facility] 01/31/25 In Process Protocol 19:16 Rhythm Strips Once [facility] 01/31/25 In Process Every Shift 19:16 Oxygen By Nasal RT 01/31/25 Transmitted Cannula 19:16 Carbidopa W Levodopa PHA 01/31/25 In Process 10/100mg (Sinemet 1 22:00 Levothyroxine Tablet PHA 02/01/25 In Process (Synthroid Tablet) 06:00 Albuterol Medneb PHA 01/31/25 In Process (Ventolin Medneb) 19:30 Enoxaparin Sodium PHA 02/01/25 In Process (Lovenox) 10:00 Order Specialty [place] 02/01/25 In Process [place] 02:38 Hydrocodone-Acet PHA 02/01/25 In Process 5/325mg Tab ([place] 03:45 Date of Service: Jan 31, 2025 Billing Provider: SELMA DAVID Common Visit Codes: [id number] INP/OBS CARE (HIGH) SELMA DAVID Feb 01, 2025 05:15
[2025-02-01] MEDS: LEVOTHYROXINE SODIUM 50 MCG TAB PO SCH (06:01)
[2025-02-01 08:45] LABS: Hematocrit 39.7 % (36.0-46.0); Hemoglobin 13.1 g/dL (12.2-16.2); Mean Corpuscular Hemoglobin 28.4 pg (28.0-32.0); Mean Corpuscular Volume 86.1 fL (80.0-100.0); Nucleated Red Blood Cells % 0.2 %
[2025-02-01 09:00] LABS: Alkaline Phosphatase 114 U/L (46-116); Anion Gap 11 (5-15); BUN/Creatinine Ratio 63.1 (10.0-20.0); Calcium 8.7 mg/dL (8.7-10.4); Carbon Dioxide 22 mmol/L (20-31); Potassium 4.0 mmol/L (3.5-5.1)
[2025-02-01 09:03] LABS: Alanine Aminotransferase 9 U/L (7-40); Albumin 2.5 g/dL (3.2-4.8); Bilirubin, Total 0.3 mg/dL (0.2-1.0); Blood Urea Nitrogen 65 mg/dL (9-23); Chloride 96 mmol/L (98-107); Glucose 68 mg/dL (74-106); Sodium 129 mmol/L (136-145); Total Protein 4.6 g/dL (5.7-8.2)
[2025-02-01] MEDS: ENOXAPARIN SOD 40 MG/0.4 ML SYRINGE SC SCH (09:52)
--- NOTE | 2025-02-01 11:05 | DVHPN2 ---
Progress Note - Dictate Date Seen: Jan 31, 2025 Medical Necessity Reason Pt with a Central, PICC or Fol: Yes The following are medically ne: Hook Catheter Subjective BEING SEEN IN HOSPITAL WHEN SHE BECAME UNRESPONSIVE BLOOD SUGAR 166 SHE WAS MILDLY HYPOTENSIVE HAD LEFT SIGHT ARM MOVEMENT LASTED ABOUT 10 MINUTES TOTAL/ NO CLEAR POST ICTAL PERIOD PRESENTATION CONSISTENT WITH METABOLIC SYNDROME/ INFECTION ESPECIALLY WITH HER RECENT ADMISSION FOR SEPSIS/ BACTEREMIA RECENT HX OF HYPOTENSION POSITIVE BLOOD CX STAPH PRODUCTIVE COUGH HYPOXIA SEVERE ANEMIA HX OF BLEEDING DIATHESIS NOW BEING TRANSFUSE PMH; HEMATURIA HX OF ORGANIC HD S/P TAVR HX OF AV STENOSIS HTN HFpEF DIASTOLIC DYSFUNCTION AFIB ON SOTALOL HYPERCOAGULABLE STATE HX OF DVT MORBID OBESITY 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 ANEMIA HYPONATREMIA DECUB STAGE II MULTIPLE ORGANISM PSEUDOMONAS vital signs Vital Sign Date Time Temp Pulse Resp B/P (MAP) Pulse Ox O2 Delivery O2 Flow Rate FiO2 02/01/25 09:30 113/72 02/01/25 07:27 95 12 100 Nasal Cannula* 1 24 01/31/25 20:00 98.0 98.0 Total Intake and Output 01/31/25 01/31/25 02/01/25 15:00 23:00 07:00 Intake Total 900 ml 700 ml Balance 900 ml 700 ml medications Current Medications Medications Dose Ordered Sig/Taran Route Start Time Stop Time Status Last Admin Dose Admin Norepinephrine Bitartrate 250 ml @ 3.75 mls/hr Q24H IV 01/31/25 19:00 02/01/25 00:30 3.75 MLS/HR Levofloxacin/ Dextrose 100 ml @ 100 mls/hr DAILY IV 02/01/25 10:00 Ondansetron HCl 4 mg Q4HP PRN IV 01/31/25 19:30 Enoxaparin Sodium 40 mg DAILY SC 02/01/25 10:00 02/01/25 09:52 40 MG Acetaminophen 650 mg Q6HP PRN PO 01/31/25 19:30 Nitroglycerin 0.4 mg Q5MINP PRN SL 01/31/25 19:30 Carbidopa/Levodopa 2 tab HS PO 01/31/25 22:00 Levothyroxine Sodium 50 mcg QAM@0600 PO 02/01/25 06:00 02/01/25 06:01 50 MCG Albuterol 2.5 mg Q6HPRN PRN NEB 01/31/25 19:30 Acetaminophen/ Hydrocodone Bitart 1 tab Q6HPRN PRN PO 02/01/25 03:45 laboratory and microbiology Laboratory Tests 02/01/25 08:19 Test 02/01/25 08:19 Range/Units Serum Glucose 68 L 74-106 mg/dL Problem List BEING SEEN IN HOSPITAL WHEN SHE BECAME UNRESPONSIVE BLOOD SUGAR 166 SHE WAS MILDLY HYPOTENSIVE HAD LEFT SIGHT ARM MOVEMENT LASTED ABOUT 10 MINUTES TOTAL/ NO CLEAR POST ICTAL PERIOD PRESENTATION CONSISTENT WITH METABOLIC SYNDROME/ INFECTION ESPECIALLY WITH HER RECENT ADMISSION FOR SEPSIS/ BACTEREMIA RECENT HX OF HYPOTENSION POSITIVE BLOOD CX STAPH PRODUCTIVE COUGH HYPOXIA SEVERE ANEMIA HX OF BLEEDING DIATHESIS NOW BEING TRANSFUSE PMH; HEMATURIA HX OF ORGANIC HD S/P TAVR HX OF AV STENOSIS HTN HFpEF DIASTOLIC DYSFUNCTION AFIB ON SOTALOL HYPERCOAGULABLE STATE HX OF DVT MORBID OBESITY 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 ANEMIA HYPONATREMIA PSEUDOMONAS INFECTION Assessment/Plan ABX PRESSORS WOUND CARE Plan discussed with: Patient Critical Care Time(min): 35 MONTRELL RANKIN MD Feb 01, 2025 11:05
--- NOTE | 2025-02-01 11:06 | DVHPN2 ---
Progress Note - Dictate Date Seen: Feb 01, 2025 Medical Necessity Reason Pt with a Central, PICC or Fol: Yes The following are medically ne: Hook Catheter Subjective SHE BECAME UNRESPONSIVE BLOOD SUGAR 166 SHE WAS MILDLY HYPOTENSIVE HAD LEFT SIGHT ARM MOVEMENT LASTED ABOUT 10 MINUTES TOTAL/ NO CLEAR POST ICTAL PERIOD PRESENTATION CONSISTENT WITH METABOLIC SYNDROME/ INFECTION ESPECIALLY WITH HER RECENT ADMISSION FOR SEPSIS/ BACTEREMIA RECENT HX OF HYPOTENSION POSITIVE BLOOD CX STAPH PRODUCTIVE COUGH HYPOXIA SEVERE ANEMIA HX OF BLEEDING DIATHESIS NOW BEING TRANSFUSE PMH; HEMATURIA HX OF ORGANIC HD S/P TAVR HX OF AV STENOSIS HTN HFpEF DIASTOLIC DYSFUNCTION AFIB ON SOTALOL HYPERCOAGULABLE STATE HX OF DVT MORBID OBESITY 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 ANEMIA HYPONATREMIA DECUB STAGE II MULTIPLE ORGANISM PSEUDOMONAS vital signs Vital Sign Date Time Temp Pulse Resp B/P (MAP) Pulse Ox O2 Delivery O2 Flow Rate FiO2 02/01/25 09:30 113/72 02/01/25 07:27 95 12 100 Nasal Cannula* 1 24 01/31/25 20:00 98.0 98.0 Total Intake and Output 01/31/25 01/31/25 02/01/25 15:00 23:00 07:00 Intake Total 900 ml 700 ml Balance 900 ml 700 ml medications Current Medications Medications Dose Ordered Sig/Taran Route Start Time Stop Time Status Last Admin Dose Admin Norepinephrine Bitartrate 250 ml @ 3.75 mls/hr Q24H IV 01/31/25 19:00 02/01/25 00:30 3.75 MLS/HR Levofloxacin/ Dextrose 100 ml @ 100 mls/hr DAILY IV 02/01/25 10:00 Ondansetron HCl 4 mg Q4HP PRN IV 01/31/25 19:30 Enoxaparin Sodium 40 mg DAILY SC 02/01/25 10:00 02/01/25 09:52 40 MG Acetaminophen 650 mg Q6HP PRN PO 01/31/25 19:30 Nitroglycerin 0.4 mg Q5MINP PRN SL 01/31/25 19:30 Carbidopa/Levodopa 2 tab HS PO 01/31/25 22:00 Levothyroxine Sodium 50 mcg QAM@0600 PO 02/01/25 06:00 02/01/25 06:01 50 MCG Albuterol 2.5 mg Q6HPRN PRN NEB 01/31/25 19:30 Acetaminophen/ Hydrocodone Bitart 1 tab Q6HPRN PRN PO 02/01/25 03:45 laboratory and microbiology Laboratory Tests 02/01/25 08:19 Test 02/01/25 08:19 Range/Units Serum Glucose 68 L 74-106 mg/dL Problem List SHE BECAME UNRESPONSIVE BLOOD SUGAR 166 HYPOTENSIVE HAD LEFT SIGHT ARM MOVEMENT LASTED ABOUT 10 MINUTES TOTAL/ NO CLEAR POST ICTAL PERIOD PRESENTATION CONSISTENT WITH METABOLIC SYNDROME/ INFECTION ESPECIALLY WITH HER RECENT ADMISSION FOR SEPSIS/ BACTEREMIA RECENT HX OF HYPOTENSION POSITIVE BLOOD CX STAPH PRODUCTIVE COUGH HYPOXIA SEVERE ANEMIA HX OF BLEEDING DIATHESIS NOW BEING TRANSFUSE PMH; HEMATURIA HX OF ORGANIC HD S/P TAVR HX OF AV STENOSIS HTN HFpEF DIASTOLIC DYSFUNCTION AFIB ON SOTALOL HYPERCOAGULABLE STATE HX OF DVT MORBID OBESITY 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 ANEMIA HYPONATREMIA PSEUDOMONAS INFECTION Assessment/Plan ABX PRESSORS WOUND CARE Plan discussed with: Patient, Spouse Critical Care Time(min): 35 MONTRELL RANKIN MD Feb 01, 2025 11:06
[2025-02-01 12:24] LABS: Base Excess -3.4 mmol/L (-2.0-3.0)
--- NOTE | 2025-02-01 15:15 | DVHPN2 ---
Subjective 79-year-old female who was just discharged from this hospital 3 days ago after she was here for sepsis comes back with altered level of consciousness and low blood pressure According to her daughter, the patient is bed-bound at home, she became confused again, Changes from previous H/P or p: Changes Objective Vitals Vital Signs Date Time Temp Pulse Resp B/P (MAP) Pulse Ox O2 Delivery O2 Flow Rate FiO2 02/01/25 12:45 110/22 02/01/25 10:00 93 02/01/25 10:00 100 1.0 02/01/25 10:00 Nasal Cannula* 24 02/01/25 09:27 10 01/31/25 20:00 98.0 98.0 Intake/Output Intake and Output 02/01/25 07:00 Intake Total 1607.5 ml Balance 1607.5 ml Intake IV Total 1607.5 ml General Appearance: Alert, Other (Disoriented) Lungs: Other (Bilateral crackles) Cardiovascular: Regular rate, Normal S1, Normal S2 Abdomen: Normal bowel sounds, Soft, No tenderness Extremities: Other (2+ edema bilaterally in the lower extremities) Medications Current Medications Medications Dose Ordered Sig/Taran Route Start Time Stop Time Status Last Admin Dose Admin Norepinephrine Bitartrate 250 ml @ 3.75 mls/hr Q24H IV 01/31/25 19:00 02/01/25 00:30 3.75 MLS/HR Levofloxacin/ Dextrose 100 ml @ 100 mls/hr DAILY IV 02/01/25 10:00 Ondansetron HCl 4 mg Q4HP PRN IV 01/31/25 19:30 Enoxaparin Sodium 40 mg DAILY SC 02/01/25 10:00 02/01/25 09:52 40 MG Acetaminophen 650 mg Q6HP PRN PO 01/31/25 19:30 Nitroglycerin 0.4 mg Q5MINP PRN SL 01/31/25 19:30 Carbidopa/Levodopa 2 tab HS PO 01/31/25 22:00 Levothyroxine Sodium 50 mcg QAM@0600 PO 02/01/25 06:00 02/01/25 06:01 50 MCG Albuterol 2.5 mg Q6HPRN PRN NEB 01/31/25 19:30 Acetaminophen/ Hydrocodone Bitart 1 tab Q6HPRN PRN PO 02/01/25 03:45 Patient Own Medication 160 mg DAILY IV 02/02/25 10:00 UNV Furosemide 100 mg/ Sodium Chloride 110 ml @ 11 mls/hr Q10H IV 02/01/25 12:15 Digoxin 125 mcg DAILY IV 02/02/25 10:00 Laboratory Results Laboratory Tests 02/01/25 08:19 Chemistry Test 02/01/25 08:19 Albumin 2.5 g/dL (3.2-4.8) L Calcium Level 8.7 mg/dL (8.7-10.4) Total Protein 4.6 g/dL (5.7-8.2) L LFT Test 02/01/25 08:19 Alanine Aminotransferase (ALT) 9 U/L (7-40) Alkaline Phosphatase 114 U/L (46-116) Aspartate Amino Transferase (AST) 27 U/L (13-40) Total Bilirubin 0.3 mg/dL (0.2-1.0) Urinalysis Test 01/31/25 16:30 Urine Color Colorless (Yellow) Urine Clarity Turbid (Clear) H Urine pH 6.0 (5.0-9.0) Urine Specific [place] 1.015 (1.001-1.035) Urine Protein 1+ (Negative) H Urine Ketones Trace (Negative) Urine Blood 1+ /uL (Negative) H Urine Nitrite Negative (Negative) Urine Bilirubin Negative (Negative) Urine Urobilinogen Normal mg/dL (Negative) Urine Leukocyte Esterase 3+ /uL (Negative) Urine RBC 9 /hpf (0 - 4) Urine WBC Clumps Present /hpf (None Seen) Urine Microscopic WBC 416 /HPF (0-5) H Urine Squamous Epithelial Cells Few /hpf (<5) Urine Bacteria Few /hpf (None Seen) H Urine Hyaline Casts Few /lpf (0 - 2) Urine Mucus Few (None Seen) Urine Yeast (Budding) Moderate /hpf (None Seen) Urine Glucose Normal mg/dL (Normal) Blood Gas Results Test 02/01/25 12:13 Arterial Blood pH 7.403 (7.350-7.450) FiO2 % 21.0 Microbiology Microbiology Date/Time Source Procedure Growth Status 01/31/25 16:30 Voided Urine Urine Culture - Preliminary Resulted 01/31/25 11:10 Blood Blood Culture - Preliminary NO GROWTH AFTER 24 HOURS OF INCUBATION. Resulted Assessment/Plan Assessment/Plan Acute metabolic encephalopathy Septic shock due to UTI UTI Recent sepsis with a wound infection due to Pseudomonas aeruginosa MDRO Morbid obesity Bed-bound Type 2 diabetes Acute kidney injury Left hydronephrosis [place] kidney Status post ureteral stent Chronic anemia Hyponatremia Atrial fibrillation Heart failure with preserved ejection fraction Plan Broad-spectrum antibiotics: Levofloxacin and gentamicin Vasopressors as needed, norepinephrine drip Cardiology consult Lasix drip per Dr. Cifuentes Full code Discussed with the daughter at the bedside Advance directives discussed for 20 minute Plan discussed with: Daughter Date of Service: Feb 01, 2025 Billing Provider: FALGUNI CM MD Common Visit Codes: [id number] CARE 30-74 MIN Secondary Visit Codes: [id number] CARE PLAN 30 MINUTES FALGUNI CM MD Feb 01, 2025 15:15
[2025-02-02] VITALS (7 sets, daily range): PULSE 96–110; RESP 13–18; O2SAT 97–100
[2025-02-02 04:00] LABS: Hematocrit 35.9 % (36.0-46.0); Hemoglobin 12.0 g/dL (12.2-16.2); Mean Corpuscular Hemoglobin 28.6 pg (28.0-32.0); Mean Corpuscular Volume 85.9 fL (80.0-100.0); Nucleated Red Blood Cells % 0.2 %
[2025-02-02 04:10] LABS: INR 1.06 (0.9-1.15); Partial Thromboplastin Time 35.2 SEC (24.5-34.5); Prothrombin Time 11.2 sec (9.3-11.8)
[2025-02-02 04:17] LABS: Alkaline Phosphatase 104 U/L (46-116); Anion Gap 14 (5-15); BUN/Creatinine Ratio 38.5 (10.0-20.0); Calcium 8.8 mg/dL (8.7-10.4); Magnesium 1.8 mg/dL (1.6-2.6); Potassium 3.7 mmol/L (3.5-5.1)
[2025-02-02 04:19] LABS: Alanine Aminotransferase < 9 U/L (7-40); Bilirubin, Total 0.2 mg/dL (0.2-1.0); Blood Urea Nitrogen 40 mg/dL (9-23); Carbon Dioxide 18 mmol/L (20-31); Chloride 98 mmol/L (98-107); Glucose 63 mg/dL (74-106); Sodium 130 mmol/L (136-145)
[2025-02-02 04:20] LABS: Albumin 2.6 g/dL (3.2-4.8); Total Protein 4.8 g/dL (5.7-8.2)
[2025-02-02] MEDS: FUROSEMIDE INJECTION 100 MG in SODIUM CHL 0.9% 100 ML IV SCH (08:15)
[2025-02-02] MEDS ORDERED: GENTAMICIN PER PHARMACY 0 ML IV SCH (09:30)
[2025-02-02] MEDS ORDERED: PATIENTS OWN MEDICATION (GENTAMICIN 160 MG) IV SCH (10:00)
[2025-02-02] MEDS: DIGOXIN (250MCG/ML) 2 ML AMPULE IV SCH (10:00)
[2025-02-02] MEDS: LORazepam 2MG/ML-1ML VIAL IV ONE (10:17)
--- NOTE | 2025-02-02 12:26 | DVHPN2 ---
Reviewed: Care Plan, H&P, Labs, Medications, Previous Orders, Radiology Changes from previous H/P or p: No Changes Objective Vitals Vital Signs Date Time Temp Pulse Resp B/P (MAP) Pulse Ox O2 Delivery O2 Flow Rate FiO2 02/02/25 11:30 91/57 02/02/25 10:30 98.8 75 10 100 98.8 02/02/25 08:26 Room Air* 0 21 Intake/Output Intake and Output 02/02/25 07:00 Intake Total 228.75 ml Output Total 1050 ml Balance -821.25 ml Intake Oral 120 ml IV Total 108.75 ml Output Urine Total 1050 ml # Bowel Movements 2 General Appearance: Alert, Other (Disoriented) Lungs: Other (Bilateral crackles) Cardiovascular: Regular rate, Normal S1, Normal S2 Abdomen: Normal bowel sounds, Soft, No tenderness Extremities: Other (2+ edema bilaterally in the lower extremities) Medications Current Medications Medications Dose Ordered Sig/Taran Route Start Time Stop Time Status Last Admin Dose Admin Norepinephrine Bitartrate 250 ml @ 3.75 mls/hr Q24H IV 01/31/25 19:00 02/01/25 00:30 3.75 MLS/HR Levofloxacin/ Dextrose 100 ml @ 100 mls/hr DAILY IV 02/01/25 10:00 Ondansetron HCl 4 mg Q4HP PRN IV 01/31/25 19:30 Enoxaparin Sodium 40 mg DAILY SC 02/01/25 10:00 02/02/25 10:16 40 MG Acetaminophen 650 mg Q6HP PRN PO 01/31/25 19:30 Nitroglycerin 0.4 mg Q5MINP PRN SL 01/31/25 19:30 Carbidopa/Levodopa 2 tab HS PO 01/31/25 22:00 Levothyroxine Sodium 50 mcg QAM@0600 PO 02/01/25 06:00 02/01/25 06:01 50 MCG Albuterol 2.5 mg Q6HPRN PRN NEB 01/31/25 19:30 Acetaminophen/ Hydrocodone Bitart 1 tab Q6HPRN PRN PO 02/01/25 03:45 Furosemide 100 mg/ Sodium Chloride 110 ml @ 11 mls/hr Q10H IV 02/01/25 12:15 Digoxin 125 mcg DAILY IV 02/02/25 10:00 Gentamicin Sulfate 0 ml @ 0 mls/hr PER PHARMACY IV 02/02/25 09:30 Laboratory Results Laboratory Tests 02/02/25 03:45 Chemistry Test 02/02/25 03:45 Albumin 2.6 g/dL (3.2-4.8) L Calcium Level 8.8 mg/dL (8.7-10.4) Magnesium Level 1.8 mg/dL (1.6-2.6) Total Protein 4.8 g/dL (5.7-8.2) L Coagulation Test 02/02/25 03:45 Prothrombin Time 11.2 sec (9.3-11.8) Prothrombin Time INR 1.06 (0.9-1.15) Activated Partial Thromboplast Time 35.2 SEC (24.5-34.5) H LFT Test 02/02/25 03:45 Alanine Aminotransferase (ALT) < 9 U/L (7-40) Alkaline Phosphatase 104 U/L (46-116) Aspartate Amino Transferase (AST) 20 U/L (13-40) Total Bilirubin 0.2 mg/dL (0.2-1.0) Urinalysis Test 01/31/25 16:30 Urine Color Colorless (Yellow) Urine Clarity Turbid (Clear) H Urine pH 6.0 (5.0-9.0) Urine Specific [place] 1.015 (1.001-1.035) Urine Protein 1+ (Negative) H Urine Ketones Trace (Negative) Urine Blood 1+ /uL (Negative) H Urine Nitrite Negative (Negative) Urine Bilirubin Negative (Negative) Urine Urobilinogen Normal mg/dL (Negative) Urine Leukocyte Esterase 3+ /uL (Negative) Urine RBC 9 /hpf (0 - 4) Urine WBC Clumps Present /hpf (None Seen) Urine Microscopic WBC 416 /HPF (0-5) H Urine Squamous Epithelial Cells Few /hpf (<5) Urine Bacteria Few /hpf (None Seen) H Urine Hyaline Casts Few /lpf (0 - 2) Urine Mucus Few (None Seen) Urine Yeast (Budding) Moderate /hpf (None Seen) Urine Glucose Normal mg/dL (Normal) Microbiology Microbiology Date/Time Source Procedure Growth Status 01/31/25 16:30 Voided Urine Urine Culture - Preliminary Resulted 01/31/25 11:10 Blood Blood Culture - Preliminary NO GROWTH AFTER 48 HOURS OF INCUBATION. Resulted Labs and/or images reviewed: Labs reviewed by me, Image(s) reviewed by me Assessment/Plan Assessment/Plan Acute metabolic encephalopathy Septic shock due to UTI blood cultures negative, urine cultures pending continue Levaquin and gentamicin UTI Recent sepsis with wound infection due to Pseudomonas aeruginosa MDRO Morbid obesity Bed-bound Type 2 diabetes Acute kidney injury Left hydronephrosis Horseshoe kidney Status post ureteral stent Chronic anemia Hyponatremia Atrial fibrillation Heart failure with preserved ejection fraction consult by Dr. Cifuentes appreciated: Continue Lasix Time spent 70 minutes Advanced care planning time 20 minutes Patient is full code Plan discussed with: Patient Date of Service: Feb 02, 2025 Billing Provider: HOWARD LEWIS MD Common Visit Codes: [id number] CARE 30-74 MIN HOWARD LEWIS MD Feb 02, 2025 12:26
--- NOTE | 2025-02-02 15:16 | DVHPN2 ---
Progress Note - Dictate Date Seen: Feb 02, 2025 Medical Necessity Reason Pt with a Central, PICC or Fol: Yes The following are medically ne: Hook Catheter Subjective SHE BECAME UNRESPONSIVE BLOOD SUGAR 166 SHE WAS MILDLY HYPOTENSIVE HAD LEFT SIGHT ARM MOVEMENT LASTED ABOUT 10 MINUTES TOTAL/ NO CLEAR POST ICTAL PERIOD PRESENTATION CONSISTENT WITH METABOLIC SYNDROME/ INFECTION ESPECIALLY WITH HER RECENT ADMISSION FOR SEPSIS/ BACTEREMIA RECENT HX OF HYPOTENSION POSITIVE BLOOD CX STAPH PRODUCTIVE COUGH HYPOXIA SEVERE ANEMIA HX OF BLEEDING DIATHESIS NOW BEING TRANSFUSE PMH; HEMATURIA HX OF ORGANIC HD S/P TAVR HX OF AV STENOSIS HTN HFpEF DIASTOLIC DYSFUNCTION AFIB ON SOTALOL HYPERCOAGULABLE STATE HX OF DVT MORBID OBESITY 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 ANEMIA HYPONATREMIA DECUB STAGE II MULTIPLE ORGANISM PSEUDOMONAS vital signs Vital Sign Date Time Temp Pulse Resp B/P (MAP) Pulse Ox O2 Delivery O2 Flow Rate FiO2 02/02/25 13:30 114/44 02/02/25 13:00 103 15 100 02/02/25 12:30 98.2 98.2 02/02/25 08:26 Room Air* 0 21 Total Intake and Output 02/01/25 02/01/25 02/02/25 15:00 23:00 07:00 Intake Total 63.75 ml 138.75 ml 26.25 ml Output Total 800 ml 250 ml Balance 63.75 ml -661.25 ml -223.75 ml medications Current Medications Medications Dose Ordered Sig/Taran Route Start Time Stop Time Status Last Admin Dose Admin Norepinephrine Bitartrate 250 ml @ 3.75 mls/hr Q24H IV 01/31/25 19:00 02/01/25 00:30 3.75 MLS/HR Levofloxacin/ Dextrose 100 ml @ 100 mls/hr DAILY IV 02/01/25 10:00 Ondansetron HCl 4 mg Q4HP PRN IV 01/31/25 19:30 Enoxaparin Sodium 40 mg DAILY SC 02/01/25 10:00 02/02/25 10:16 40 MG Acetaminophen 650 mg Q6HP PRN PO 01/31/25 19:30 Nitroglycerin 0.4 mg Q5MINP PRN SL 01/31/25 19:30 Carbidopa/Levodopa 2 tab HS PO 01/31/25 22:00 Levothyroxine Sodium 50 mcg QAM@0600 PO 02/01/25 06:00 02/01/25 06:01 50 MCG Albuterol 2.5 mg Q6HPRN PRN NEB 01/31/25 19:30 Acetaminophen/ Hydrocodone Bitart 1 tab Q6HPRN PRN PO 02/01/25 03:45 Furosemide 100 mg/ Sodium Chloride 110 ml @ 11 mls/hr Q10H IV 02/01/25 12:15 Digoxin 125 mcg DAILY IV 02/02/25 10:00 Gentamicin Sulfate 0 ml @ 0 mls/hr PER PHARMACY IV 02/02/25 09:30 laboratory and microbiology Laboratory Tests 02/02/25 03:45 Test 02/02/25 03:45 Range/Units Serum Glucose 63 L 74-106 mg/dL Problem List SHE BECAME UNRESPONSIVE BLOOD SUGAR 166 HYPOTENSIVE HAD LEFT SIGHT ARM MOVEMENT LASTED ABOUT 10 MINUTES TOTAL/ NO CLEAR POST ICTAL PERIOD PRESENTATION CONSISTENT WITH METABOLIC SYNDROME/ INFECTION ESPECIALLY WITH HER RECENT ADMISSION FOR SEPSIS/ BACTEREMIA RECENT HX OF HYPOTENSION POSITIVE BLOOD CX STAPH PRODUCTIVE COUGH HYPOXIA SEVERE ANEMIA HX OF BLEEDING DIATHESIS NOW BEING TRANSFUSE PMH; HEMATURIA HX OF ORGANIC HD S/P TAVR HX OF AV STENOSIS HTN HFpEF DIASTOLIC DYSFUNCTION AFIB ON SOTALOL HYPERCOAGULABLE STATE HX OF DVT MORBID OBESITY 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 ANEMIA HYPONATREMIA PSEUDOMONAS INFECTION Assessment/Plan ABX PRESSORS WOUND CARE TRIPLE LUMEN INSERTION Dietary Evaluation Review Comments: 1. CCHO-60 2 gNa diet w 45g proein restriction 2. Try Devin for wound healing 3. Wt management 4. F/U with nephrology and updated lab values Expected Outcomes/Goals: Less uremic syndrome, controlled DM Plan discussed with: Patient Critical Care Time(min): 35 MONTRELL RANKIN MD Feb 02, 2025 15:16
[2025-02-02] MEDS: GENTAMICIN SULFATE IV ONE (22:26)
[2025-02-02] MEDS: D5W 5% IV ONE (22:26)
[2025-02-02] MEDS: GENTAMICIN SULFATE 160 MG in D5W 5% 100 ML IV ONE (22:26)
[2025-02-02] MEDS: GENTAMICIN SULFATE IV SCH (22:31)
[2025-02-02] MEDS: D5W 5% IV SCH (22:31)
[2025-02-02] MEDS: FUROSEMIDE INJECTION 10 ML ONE (23:31)
[2025-02-03] VITALS (98 sets, daily range): BP systolic 63–190; BP diastolic 23–148; PULSE 72–139; RESP 8–35; TEMP 97.2–97.8; O2SAT 93–100
[2025-02-03 05:28] LABS: Hematocrit 35.3 % (36.0-46.0); Hemoglobin 11.7 g/dL (12.2-16.2); Mean Corpuscular Hemoglobin 27.7 pg (28.0-32.0); Mean Corpuscular Volume 83.6 fL (80.0-100.0); Nucleated Red Blood Cells % 0.2 %
[2025-02-03 05:42] LABS: Alkaline Phosphatase 102 U/L (46-116); Anion Gap 11 (5-15); BUN/Creatinine Ratio 39.0 (10.0-20.0); Carbon Dioxide 21 mmol/L (20-31); Glucose 98 mg/dL (74-106); Magnesium 1.8 mg/dL (1.6-2.6); Potassium 3.9 mmol/L (3.5-5.1)
[2025-02-03 05:43] LABS: Alanine Aminotransferase 9 U/L (7-40); Blood Urea Nitrogen 41 mg/dL (9-23); Chloride 96 mmol/L (98-107); Sodium 128 mmol/L (136-145)
[2025-02-03 05:44] LABS: Albumin 2.4 g/dL (3.2-4.8); Bilirubin, Total 0.3 mg/dL (0.2-1.0); Calcium 8.5 mg/dL (8.7-10.4); Total Protein 4.7 g/dL (5.7-8.2)
--- NOTE | 2025-02-03 10:25 | DVHNC2 ---
Central Line Recorder of insertion practice: Skein Winding Operator Occupation of compliance associate: Attending Physician Indication: Hypotension, CVP monitoring Room prepared for procedure: Yes Skein Winding Operator performed hand hygien: Yes Maximal sterile barrier precau: Mask/Eye shield, Sterile gown Skin Preparation: Chlorhexidine gluconate, Providine iodine Skin preparation completely dr: Yes Insertion site: Right, Femoral Central line catheter type: [id number] dialysis Number of lumens: 3 Antiseptic ointment applied to: Yes Date of Service: Feb 03, 2025 Billing Provider: DAVID ARREDONDO MD Common Visit Codes: [id number] INP/OBS CARE (HIGH) Secondary Visit Codes: [id number] STANDBY SERVICE Consultation Codes: [id number] CONSULT <45MIN Procedure Codes: [id number] NON-TUNNEL CV CATH DAVID ARREDONDO MD Feb 03, 2025 10:25
--- NOTE | 2025-02-03 10:52 | DVHPN2 ---
Subjective More alert Still septic on Levophed Reviewed: Care Plan, H&P, Labs, Medications, Previous Orders, Radiology Changes from previous H/P or p: Changes Objective Vitals Vital Signs Date Time Temp Pulse Resp B/P (MAP) Pulse Ox O2 Delivery O2 Flow Rate FiO2 02/03/25 09:30 100 Room Air* 0 21 02/03/25 09:30 87 02/03/25 09:30 11 02/03/25 09:00 97.6 117/67 (84) 97.6 Intake/Output Intake and Output 02/03/25 07:00 Intake Total 285.125 ml Output Total 2300 ml Balance -2014.875 ml Intake Oral 0 ml IV Total 285.125 ml Output Urine Total 2300 ml General Appearance: Alert, Other (Disoriented) Lungs: Other (Bilateral crackles) Cardiovascular: Regular rate, Normal S1, Normal S2 Abdomen: Normal bowel sounds, Soft, No tenderness Extremities: Other (2+ edema bilaterally in the lower extremities) Medications Current Medications Medications Dose Ordered Sig/Taran Route Start Time Stop Time Status Last Admin Dose Admin Norepinephrine Bitartrate 250 ml @ 3.75 mls/hr Q24H IV 01/31/25 19:00 02/02/25 16:28 15 MLS/HR Ondansetron HCl 4 mg Q4HP PRN IV 01/31/25 19:30 Enoxaparin Sodium 40 mg DAILY SC 02/01/25 10:00 02/03/25 08:26 40 MG Acetaminophen 650 mg Q6HP PRN PO 01/31/25 19:30 Nitroglycerin 0.4 mg Q5MINP PRN SL 01/31/25 19:30 Carbidopa/Levodopa 2 tab HS PO 01/31/25 22:00 Levothyroxine Sodium 50 mcg QAM@0600 PO 02/01/25 06:00 02/01/25 06:01 50 MCG Albuterol 2.5 mg Q6HPRN PRN NEB 01/31/25 19:30 Acetaminophen/ Hydrocodone Bitart 1 tab Q6HPRN PRN PO 02/01/25 03:45 Furosemide 100 mg/ Sodium Chloride 110 ml @ 11 mls/hr Q10H IV 02/01/25 12:15 02/03/25 08:26 11 MLS/HR Digoxin 125 mcg DAILY IV 02/02/25 10:00 Gentamicin Sulfate 0 ml @ 0 mls/hr PER PHARMACY IV 02/02/25 09:30 Levofloxacin/ Dextrose 100 ml @ 100 mls/hr DAILY@1999 IV 02/02/25 20:17 Gentamicin Sulfate 145 mg/ Dextrose 103.625 ml @ 99.639 mls/hr Q12H IV 02/02/25 22:00 02/02/25 22:31 99.639 MLS/HR Laboratory Results Laboratory Tests 02/03/25 05:03 02/03/25 05:43 Chemistry Test 02/03/25 05:03 Albumin 2.4 g/dL (3.2-4.8) L Calcium Level 8.5 mg/dL (8.7-10.4) L Magnesium Level 1.8 mg/dL (1.6-2.6) Total Protein 4.7 g/dL (5.7-8.2) L LFT Test 02/03/25 05:03 Alanine Aminotransferase (ALT) 9 U/L (7-40) Alkaline Phosphatase 102 U/L (46-116) Aspartate Amino Transferase (AST) 19 U/L (13-40) Total Bilirubin 0.3 mg/dL (0.2-1.0) Urinalysis Test 01/31/25 16:30 Urine Color Colorless (Yellow) Urine Clarity Turbid (Clear) H Urine pH 6.0 (5.0-9.0) Urine Specific [place] 1.015 (1.001-1.035) Urine Protein 1+ (Negative) H Urine Ketones Trace (Negative) Urine Blood 1+ /uL (Negative) H Urine Nitrite Negative (Negative) Urine Bilirubin Negative (Negative) Urine Urobilinogen Normal mg/dL (Negative) Urine Leukocyte Esterase 3+ /uL (Negative) Urine RBC 9 /hpf (0 - 4) Urine WBC Clumps Present /hpf (None Seen) Urine Microscopic WBC 416 /HPF (0-5) H Urine Squamous Epithelial Cells Few /hpf (<5) Urine Bacteria Few /hpf (None Seen) H Urine Hyaline Casts Few /lpf (0 - 2) Urine Mucus Few (None Seen) Urine Yeast (Budding) Moderate /hpf (None Seen) Urine Glucose Normal mg/dL (Normal) Microbiology Microbiology Date/Time Source Procedure Growth Status 01/31/25 16:30 Voided Urine Urine Culture - Preliminary Resulted 01/31/25 11:10 Blood Blood Culture - Preliminary NO GROWTH AFTER 48 HOURS OF INCUBATION. Resulted Assessment/Plan Assessment/Plan Acute metabolic encephalopathy Septic shock due to UTI UTI Recent sepsis with a wound infection due to Pseudomonas aeruginosa MDRO Morbid obesity Bed-bound Type 2 diabetes Acute kidney injury Left hydronephrosis Horseshoe kidney Status post ureteral stent Chronic anemia Hyponatremia Atrial fibrillation Heart failure with preserved ejection fraction Plan Broad-spectrum antibiotics: Levofloxacin and gentamicin Vasopressors as needed, norepinephrine drip Cardiology consult Lasix drip per Dr. Cifuentes Full code Discussed with the daughter at the bedside Advance directives discussed for 20 minute 02/03/2025: Continue IV antibiotics Vasopressors Lasix Central line to be done by emergency room physician Cardiology consultation Dr. Cifuentes Monitor closely Plan discussed with: Patient, Son My Orders Orders - FALGUNI CM MD Procedure Category Date Status Time Gentamicin Sulfate PHA 02/02/25 In Process (Garamycin) 22:00 Pharmacy [facility] 02/02/25 In Process Clarification: 20:34 Gentamycin, [facility] 02/03/25 Logged 21:00 Date of Service: Feb 03, 2025 Billing Provider: FALGUNI CM MD Common Visit Codes: [id number] CARE 30-74 MIN FALGUNI CM MD Feb 03, 2025 10:52
[2025-02-03] MEDS: ACCU-CHEK COMFORT CURVE STRIP VI SCH (16:58)
[2025-02-03] MEDS: InsuLIN REG 1unit/0.01ml Soln (100units/ml) SC SCH (17:00)
[2025-02-04] VITALS (101 sets, daily range): BP systolic 64–186; BP diastolic 15–149; PULSE 65–122; RESP 9–31; TEMP 94.8–98.1; O2SAT 97–100
[2025-02-04 05:04] LABS: Hematocrit 31.3 % (36.0-46.0); Hemoglobin 10.4 g/dL (12.2-16.2); Mean Corpuscular Hemoglobin 27.7 pg (28.0-32.0); Mean Corpuscular Volume 83.5 fL (80.0-100.0); Nucleated Red Blood Cells % 0.3 %
[2025-02-04 05:19] LABS: Alkaline Phosphatase 107 U/L (46-116); Anion Gap 10 (5-15); BUN/Creatinine Ratio 43.9 (10.0-20.0); Carbon Dioxide 23 mmol/L (20-31); Glucose 92 mg/dL (74-106)
[2025-02-04 05:20] LABS: Alanine Aminotransferase 9 U/L (7-40); Albumin 2.3 g/dL (3.2-4.8); Bilirubin, Total 0.3 mg/dL (0.2-1.0); Blood Urea Nitrogen 47 mg/dL (9-23); Calcium 8.2 mg/dL (8.7-10.4); Chloride 94 mmol/L (98-107); Magnesium 1.6 mg/dL (1.6-2.6); Potassium 3.0 mmol/L (3.5-5.1); Sodium 127 mmol/L (136-145); Total Protein 4.3 g/dL (5.7-8.2)
[2025-02-04] MEDS: ALBUMIN 25% 50 ML IV ONE ×2 (06:30→08:05)
[2025-02-04] MEDS: POTASSIUM CHL 20MEQ/100ML 200 ML IV ONE (08:02)
[2025-02-04] MEDS: POTASSIUM CHL 20MEQ/100ML 100 ML IV SCH (08:12)
[2025-02-04] MEDS: MAGNESIUM SULFATE 1GM/100ML 100 ML IV ONE ×4 (08:13→10:43)
[2025-02-04] MEDS: CALCIUM GLUC 1,000mg/50ml-NS 50 ML IV ONE ×3 (08:13→08:15)
[2025-02-04] MEDS ORDERED: ALBUMIN 25% 50 ML IV ONE (08:15)
[2025-02-04] MEDS: ACETAMINOPHEN 325 MG TAB PO PRN (08:36)
[2025-02-04] MEDS: SODIUM CHLORIDE 1 GM TAB PO ONE (08:44)
--- NOTE | 2025-02-04 11:32 | DVHPN2 ---
Subjective More alert Still septic on Levophed Hyponatremic and hypokalemic and hypomagnesemic Reviewed: Care Plan, H&P, Labs, Medications, Previous Orders, Radiology Changes from previous H/P or p: Changes Objective Vitals Vital Signs Date Time Temp Pulse Resp B/P (MAP) Pulse Ox O2 Delivery O2 Flow Rate FiO2 02/04/25 10:43 100/40 02/04/25 10:00 77 02/04/25 10:00 12 100 Room Air* 0 21 02/04/25 08:01 96.3 96.3 Intake/Output Intake and Output 02/04/25 07:00 Intake Total 2916.014 ml Output Total 1100 ml Balance 1816.014 ml Intake Oral 2100 ml IV Total 816.014 ml Output Urine Total 1100 ml # Bowel Movements 2 General Appearance: Alert, Other (Disoriented) Lungs: Other (Bilateral crackles) Cardiovascular: Regular rate, Normal S1, Normal S2 Abdomen: Normal bowel sounds, Soft, No tenderness Extremities: Other (2+ edema bilaterally in the lower extremities) Medications Current Medications Medications Dose Ordered Sig/Taran Route Start Time Stop Time Status Last Admin Dose Admin Norepinephrine Bitartrate 250 ml @ 3.75 mls/hr Q24H IV 01/31/25 19:00 02/04/25 08:12 7.5 MLS/HR Ondansetron HCl 4 mg Q4HP PRN IV 01/31/25 19:30 Enoxaparin Sodium 40 mg DAILY SC 02/01/25 10:00 02/03/25 08:26 40 MG Acetaminophen 650 mg Q6HP PRN PO 01/31/25 19:30 02/04/25 08:36 650 MG Nitroglycerin 0.4 mg Q5MINP PRN SL 01/31/25 19:30 Carbidopa/Levodopa 2 tab HS PO 01/31/25 22:00 Levothyroxine Sodium 50 mcg QAM@0600 PO 02/01/25 06:00 02/04/25 06:31 50 MCG Albuterol 2.5 mg Q6HPRN PRN NEB 01/31/25 19:30 Acetaminophen/ Hydrocodone Bitart 1 tab Q6HPRN PRN PO 02/01/25 03:45 Furosemide 100 mg/ Sodium Chloride 110 ml @ 11 mls/hr Q10H IV 02/01/25 12:15 02/04/25 10:43 11 MLS/HR Digoxin 125 mcg DAILY IV 02/02/25 10:00 02/04/25 08:35 125 MCG Gentamicin Sulfate 0 ml @ 0 mls/hr PER PHARMACY IV 02/02/25 09:30 Levofloxacin/ Dextrose 100 ml @ 100 mls/hr DAILY@1700 IV 02/03/25 17:00 02/03/25 16:57 100 MLS/HR Diagnostic Test (Pha) 1 strip ACHS 02/03/25 17:00 02/04/25 06:53 1 STRIP Insulin Human Regular ACHS SC 02/03/25 17:00 Dextrose 50 ml UD PRN IV 02/03/25 16:45 Laboratory Results Laboratory Tests 02/04/25 04:42 Chemistry Test 02/04/25 04:42 Albumin 2.3 g/dL (3.2-4.8) L Calcium Level 8.2 mg/dL (8.7-10.4) L Magnesium Level 1.6 mg/dL (1.6-2.6) Total Protein 4.3 g/dL (5.7-8.2) L LFT Test 02/04/25 04:42 Alanine Aminotransferase (ALT) 9 U/L (7-40) Alkaline Phosphatase 107 U/L (46-116) Aspartate Amino Transferase (AST) 16 U/L (13-40) Total Bilirubin 0.3 mg/dL (0.2-1.0) Urinalysis Test 01/31/25 16:30 Urine Color Colorless (Yellow) Urine Clarity Turbid (Clear) H Urine pH 6.0 (5.0-9.0) Urine Specific [place] 1.015 (1.001-1.035) Urine Protein 1+ (Negative) H Urine Ketones Trace (Negative) Urine Blood 1+ /uL (Negative) H Urine Nitrite Negative (Negative) Urine Bilirubin Negative (Negative) Urine Urobilinogen Normal mg/dL (Negative) Urine Leukocyte Esterase 3+ /uL (Negative) Urine RBC 9 /hpf (0 - 4) Urine WBC Clumps Present /hpf (None Seen) Urine Microscopic WBC 416 /HPF (0-5) H Urine Squamous Epithelial Cells Few /hpf (<5) Urine Bacteria Few /hpf (None Seen) H Urine Hyaline Casts Few /lpf (0 - 2) Urine Mucus Few (None Seen) Urine Yeast (Budding) Moderate /hpf (None Seen) Urine Glucose Normal mg/dL (Normal) Microbiology Microbiology Date/Time Source Procedure Growth Status 02/03/25 00:50 Nose MRSA Screen - Final Complete 01/31/25 16:30 Voided Urine Urine Culture - Preliminary Enterococcus faecium - VRE Presumptive Leidy albicans Resulted 01/31/25 11:10 Blood Blood Culture - Preliminary NO GROWTH AFTER 72 HOURS OF INCUBATION. Resulted Assessment/Plan Assessment/Plan Acute metabolic encephalopathy Septic shock due to UTI UTI Recent sepsis with a wound infection due to Pseudomonas aeruginosa MDRO Morbid obesity Bed-bound Type 2 diabetes Acute kidney injury Left hydronephrosis Horseshoe kidney Status post ureteral stent Chronic anemia Hyponatremia Atrial fibrillation Heart failure with preserved ejection fraction Plan Broad-spectrum antibiotics: Levofloxacin and gentamicin Vasopressors as needed, norepinephrine drip Cardiology consult Lasix drip per Dr. Cifuentes Full code Discussed with the daughter at the bedside Advance directives discussed for 20 minute 02/03/2025: Continue IV antibiotics Vasopressors Lasix Central line to be done by emergency room physician Cardiology consultation Dr. Cifuentes Monitor closely 02/04/2025: Replace magnesium and potassium Continue IV antibiotics Infectious Disease consultation Vasopressors as needed Lasix drip Monitor closely The rest of the management will depend on the hospital course Plan discussed with: Patient, Spouse My Orders Orders - FALGUNI CM MD Procedure Category Date Status Time Glucose Blood PHA 02/03/25 In Process (Accu-Chek Comfort 17:00 Insulin R (Human) PHA 02/03/25 In Process (Insulin R) 17:00 Dextrose 50% Syringe PHA 02/03/25 In Process 16:45 * Infectious [place]- CONS 02/04/25 Transmitted Otilia Adler 09:18 Comprehensive LAB 02/04/25 Logged Metabolic Panel 16:00 Magnesium LAB 02/04/25 Logged 16:00 Gentamycin, Random LAB 02/05/25 Verified 05:00 Date of Service: Feb 04, 2025 Billing Provider: FALGUNI CM MD Common Visit Codes: [id number] INP/OBS CARE(HIGH) FALGUNI CM MD Feb 04, 2025 11:32
[2025-02-04 16:47] LABS: Alanine Aminotransferase 11 U/L (7-40); Alkaline Phosphatase 94 U/L (46-116); Anion Gap 8 (5-15); BUN/Creatinine Ratio 32.7 (10.0-20.0); Carbon Dioxide 22 mmol/L (20-31); Magnesium 2.0 mg/dL (1.6-2.6)
[2025-02-04 16:51] LABS: Albumin 2.6 g/dL (3.2-4.8); Bilirubin, Total 0.3 mg/dL (0.2-1.0); Blood Urea Nitrogen 36 mg/dL (9-23); Calcium 8.3 mg/dL (8.7-10.4); Chloride 96 mmol/L (98-107); Glucose 110 mg/dL (74-106); Potassium 3.2 mmol/L (3.5-5.1); Sodium 126 mmol/L (136-145); Total Protein 4.4 g/dL (5.7-8.2)
--- NOTE | 2025-02-04 21:55 | DVHINCON2 ---
Date of service: Feb 04, 2025 Family History: Cancer G8 MOTHER G8 SISTER Chronic obstructive lung disease (situation) G8 FATHER Family history: Cardiovascular disease G8 MOTHER G8 FATHER Family history: Hypertension G8 MOTHER G8 FATHER Suicide G8 FATHER Allergies: Coded Allergies: Penicillins (Unverified Allergy, Severe, 03/16/15) Sulfa Antibiotics (Unverified Allergy, Severe, 03/16/15) Morphine (Verified Allergy, Intermediate, ALTERED, 01/31/18) PER PATIENT AND HER DAUGHTER SHE CAN NOT HAVE Ceftriaxone (Verified Allergy, Unknown, 01/31/18) COUGH AND CHILLS Home Meds Active Scripts Levothyroxine Sodium (Levothyroxine Sodium) 50 Mcg Tab, 50 MCG PO QAM@0600 for 30 Days, #30 TAB Prov:MARÍA SKY RESIDENT 01/26/25 Reported Medications Clotrimazole W/ Betamethasone (Clotrimazole/Betamethason 1-0.05 %) 1 Cre Cre, 1 CRE EX BID for 120 Days, #60 01/03/25 Linaclotide Base (LINZESS) 290 Mcg Cap, 1 CAP PO DAILY for 30 Days, #30 01/03/25 Ondansetron HCl (Ondansetron Hydrochloride) 4 Mg Tab, 1 TAB PO Q8HPRN 04/25/24 Esomeprazole Magnesium (Esomeprazole Magnesium Dr) 40 Mg Cap, 40 MG PO DAILY, CAP 11/03/23 Acetaminophen (8 Hour Arthritis Pain Rel) 650 Mg Tab, 650 MG PO TID for ARTHRITIS 01/23/22 Levodopa W/Carbidopa (Sinemet) 10 /100 Tab, 2 TAB PO HS for TREMORS 01/23/22 Albuterol Sulfate (Albuterol Sulfate) 0.083 % Neb, 1 VIAL NEB Q6HR PRN for SHORTNESS OF BREATH 02/05/20 Fluticasone Propionate (Nasal) (Flonase Allergy Relief) 50 Mcg/Act Spr, 1 SPR NA BID PRN for ALLERGIES 02/05/20 Apremilast Base (Otezla) 30 Mg Tab, 1 TAB PO BID for ARTHRITIS 03/28/19 Tramadol HCl (Tramadol Hydrochloride) 50 Mg Tab, 1 TAB PO QID PRN for MODERATE PAIN (4-6 PAIN SCALE) 10/30/18 Ropinirole Hydrochloride (Requip) 1 Mg Tab, 1 TAB PO HS for RESTLESS LEGS for 90 Days, #90 03/17/15 Current Medications Current Medications Medications (Trade) Dose Ordered Sig/Taran Route PRN Reason Start Time Stop Time Status Last Admin Potassium Chloride 100 ml @ 50 mls/hr Q2H IV 02/04/25 06:30 02/04/25 10:29 DC 02/04/25 08:30 Vital Signs Vital Signs Date Time Temp Pulse Resp B/P (MAP) Pulse Ox O2 Delivery O2 Flow Rate FiO2 02/04/25 20:50 111/24 02/04/25 18:45 95.2 76 16 99 203.4 02/04/25 18:00 Room Air* 0 21 Labs/Diagnostic Data Labs Test 02/04/25 17:04 02/04/25 15:41 02/04/25 04:42 02/03/25 21:00 Range/Units POC Glucose 120 H 70-106 mg/dl Sodium Level 126 L 136-145 mmol/L Potassium Level 3.2 L 3.5-5.1 mmol/L Chloride Level 96 L 98-107 mmol/L Carbon Dioxide Level 22 20-31 mmol/L Anion Gap 8 5-15 Blood Urea Nitrogen 36 #H 9-23 mg/dL Creatinine 1.10 H 0.550-1.02 mg/dL Glomerular Filtration Rate Calc 50 >90 mL/min BUN/Creatinine Ratio 32.7 H 10.0-20.0 Serum Glucose 110 H 74-106 mg/dL Calcium Level 8.3 L 8.7-10.4 mg/dL Magnesium Level 2.0 1.6-2.6 mg/dL Total Bilirubin 0.3 0.2-1.0 mg/dL Aspartate Amino Transferase (AST) 19 13-40 U/L Alanine Aminotransferase (ALT) 11 7-40 U/L Alkaline Phosphatase 94 46-116 U/L Total Protein 4.4 L 5.7-8.2 g/dL Albumin 2.6 L 3.2-4.8 g/dL White Blood Count 10.0 # 4.4-10.8 10^3/uL Red Blood Count 3.75 L 4.0-5.20 10^6/uL Hemoglobin 10.4 L 12.2-16.2 g/dL Hematocrit 31.3 #L 36.0-46.0 % Mean Corpuscular Volume 83.5 80.0-100.0 fL Mean Corpuscular Hemoglobin 27.7 L 28.0-32.0 pg Mean Corpuscular Hemoglobin Concent 33.3 32.0-36.0 g/dL Red Cell Distribution Width 18.3 H 11.8-14.3 % Platelet Count 106 L 140-450 10^3/uL Mean Platelet Volume 8.0 6.9-10.8 fL Neutrophils (%) (Auto) 75.6 37.0-80.0 % Lymphocytes (%) (Auto) 12.5 10.0-50.0 % Monocytes (%) (Auto) 10.9 0.0-12.0 % Eosinophils (%) (Auto) 0.7 0.0-7.0 % Basophils (%) (Auto) 0.3 0.0-2.0 % Neutrophils # (Auto) 7.6 1.6-8.6 10 ^3/uL Lymphocytes # (Auto) 1.3 0.4-5.4 10 ^3/uL Monocytes # (Auto) 1.1 0-1.3 10 ^3/uL Eosinophils # (Auto) 0.1 0-0.8 10 ^3/uL Basophils # (Auto) 0 0-0.2 10 ^3/uL Nucleated Red Blood Cells 0.3 % Gentamicin Level Trough 7.5 *H 0.5-1.5 ug/mL Test 02/02/25 03:45 02/01/25 12:13 01/31/25 16:30 01/31/25 11:10 Range/Units Prothrombin Time 11.2 9.3-11.8 sec Prothrombin Time INR 1.06 0.9-1.15 Activated Partial Thromboplast Time 35.2 H 24.5-34.5 SEC Blood Gas Specimen Type Arterial Blood Gas Sample Site Left radial Blood Gas Patient Temperature 37.0 Arterial Blood Date Drawn [id number] Arterial Blood pH 7.403 7.350-7.450 Arterial Blood Partial Pressure CO2 33.8 32.0-45.0 mmHg Arterial Blood Partial Pressure O2 86.9 83.0-108.0 mmHg Arterial Blood HCO3 20.6 L 21.0-28.0 mmol/L Arterial Blood Oxygen Saturation 96.9 94.0-98.0 % Arterial Blood Base Excess -3.4 L -2.0-3.0 mmol/L Arterial Blood Oxyhemoglobin 95.4 94.0-98.0 % Arterial Blood Carboxyhemoglobin 1.0 0.5-1.5 % Arterial Blood Methemoglobin 0.5 0.0-1.5 % [place] Test Yes Blood Gas Total Hemoglobin 12.70 12.0-16.0 g/dL Blood Gas Modality Room air FiO2 % 21.0 Urine Color Colorless Yellow Urine Clarity Turbid H Clear Urine pH 6.0 5.0-9.0 Urine Specific [place] 1.015 1.001-1.035 Urine Protein 1+ H Negative Urine Ketones Trace Negative Urine Blood 1+ H Negative /uL Urine Nitrite Negative Negative Urine Bilirubin Negative Negative Urine Urobilinogen Normal Negative mg/dL Urine Leukocyte Esterase 3+ Negative /uL Urine RBC 9 0 - 4 /hpf Urine WBC Clumps Present None Seen /hpf Urine Microscopic WBC 416 H 0-5 /HPF Urine Squamous Epithelial Cells Few <5 /hpf Urine Bacteria Few H None Seen /hpf Urine Hyaline Casts Few 0 - 2 /lpf Urine Mucus Few None Seen Urine Yeast (Budding) Moderate None Seen /hpf Urine Glucose Normal Normal mg/dL Lactic Acid Level 0.7 0.4-2.0 mmol/L Troponin I High Sensitivity 7 </=34 ng/L Microbiology Date/Time Source Procedure Growth Status 02/03/25 00:50 Nose MRSA Screen - Final Complete 01/31/25 16:30 Voided Urine Urine Culture - Final Enterococcus faecium - VRE Presumptive Leidy albicans Complete 01/31/25 11:10 Blood Blood Culture - Preliminary NO GROWTH AFTER 72 HOURS OF INCUBATION. Resulted Plan/Recommendation ASSESSMENT AND PLAN: ID Problem List: \-- Altered mental status \-- Congestive heart failure (CHF) \-- Chronic kidney disease (CKD) \-- Diabetes mellitus \-- Hypertension \-- Hypothyroidism \-- Anemia \-- Atrial fibrillation \-- Recent sepsis -- possible septic shock \-- Sacral and buttock ulcers, including possible psoriatic involvement \-- MDR Pseudomonas history Assessment Ms. Pauline Paz is an 79-year-old female with a significant past medical history including congestive heart failure, chronic kidney disease, diabetes mellitus, hypertension, hypothyroidism, anemia, and atrial fibrillation. She presents today with altered mental status and recent lethargy following a recent hospitalization for sepsis in December. On initial evaluation, patient was noted to be alert and oriented times two. Required Levophed infusion in the emergency department for hypotension and was started on levofloxacin due to allergies to penicillin and ceftriaxone. No fever was noted. Laboratory studies reveal mild lactic acid elevation (0.7), urinalysis with significant pyuria, and VRE with presumptive Leidy albicans in the urine. Recent imaging includes a chest X-ray significant for large cardiac silhouette, left lower lobe opacity, and prominent pulmonary vasculature. Head CT demonstrated generalized cerebral volume loss. 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 At present, sacral and buttock ulcers are noted to have serous oozing and signs suggestive of both pressure injury and psoriatic flare. Additional findings include scattered ecchymosis and blistering on bilateral upper extremities, and stage 12 ulcers on the posterior thighs. Plan: \-- Switch antimicrobial regimen to gentamicin and levofloxacin 500 mg daily to cover historical MDR Pseudomonas, considering allergies. \-- Continue Levophed drip as indicated for blood pressure support, monitoring for intravascular volume depletion. \-- Continue Lasix as indicated for volume overload, but use caution given patients hemodynamics and possible risk of over-diuresis. \-- Monitor urine output; currently adequate at 2.4 L. \-- Avoid overtreatment of urine culture organisms; current findings likely represent colonization. \-- Suspected wound organisms likely not contributing to altered mentation; altered mental status thought secondary to hypotension and overall hemodynamic instability. \-- Check nutritional markers: protein, albumin. \-- Further wound assessment and management for sacral and posterior thigh ulcers, including wound care consult and assessment for concomitant psoriatic component. \-- Continue close monitoring of vital signs, renal function, and mental status. \-- Update plan as additional diagnostic data becomes available. Isolation Precautions: Standard \*Assessment and plan was discussed with the patient as written above. \*Plan is subject to change pending incorporation of new incoming informatio n/diagnostics. Updates may be added as addendum at the bottom (OR TOP) of this note. Thank you for the consult. Will continue to follow. Please contact for any questions or concerns. Miriam Adler M.D. [facility] Ph: ? Teams text: [email or web address] \ History: The patient's chart and medications were reviewed in detail and the patient was seen and examined. History obtained from: family and medical record Ms. Pauline Paz is an 79-year-old female with a history as noted above who presents with altered mentation and lethargy following recent hospitalization for sepsis. Has had recurrent episodes of hypotension and altered mentation. Significant recent clinical history includes MDR Pseudomonas sacral wound and colonization with VRE and Leidy albicans. Review of Systems: A complete 10-system review of systems was completed and negative except as noted in the HPI or here. ROS: -CONSTITUTIONAL: Denies fevers and chills. -HEENT: Not discussed. -RESPIRATORY: No current shortness of breath; lungs clear. -CV: No chest pain. History of atrial fibrillation. -GI: Not discussed. -: No dysuria or urinary frequency reported. -MSK: No complaints of myalgias or joint pain. -SKIN: Noted to have pressure and psoriatic ulcers, scattered ecchymosis, and blistering as described above. -NEUROLOGICAL: Altered mental status, otherwise no headache or syncope. -PSYCHIATRIC: Not discussed. Past Medical History: Diagnosis Date Congestive heart failure Chronic kidney disease Diabetes mellitus Hypertension Hypothyroidism Anemia Atrial fibrillation Recent sepsis History of MDR Pseudomonas and VRE colonization Past Surgical History: Not discussed. Home Medications: Not provided in transcript. Allergies: Allergies to penicillin and ceftriaxone. Family History: Not discussed. Social History: Not discussed. Objective: Vital Signs on Arrival: Temp: 98 F BP: 113/83 Pulse: 115 Resp: 14 SpO2: 100% on room air Most Recent Vital Signs: Not provided in transcript. Admission Weight: Not provided in transcript. Physical Exam: General: NAD Neck: Supple. No masses. HEENT: PERRL. Normal lids and conjunctiva. Moist mucous membranes. Oropharynx without lesions, exudates or excessive erythema. Normal appearance of the external aspects of the nose and ears. Heart: Regular rhythm, normal rate. No murmur. No lower extremity edema. Lungs: Normal respiratory effort. Clear to auscultation bilaterally. No wheezes. No crackles. Abdomen: Soft. Non-tender. Non-distended. No masses or abdominal hernia. Msk: No digital cyanosis. Normal strength and tone in all 4 limbs. Skin: Warm and dry, no rashes. Notable for serous oozing from sacral and buttock ulcers with some psoriatic component, scattered ecchymosis and blister on right upper arm, bilateral upper extremity ulcers, stage 12 ulcers on posterior thighs. Neuro: Alertness fluctuates; currently A\&O x2, no focal findings otherwise. Psych: Appropriate mood. Full affect. Oriented to person and place. Lines: Active Lines -Peripheral IV Line, details not specified Diagnostic Studies: Available diagnostic studies were reviewed personally. Significant relevant results and findings are outlined below or addressed in the Assessment and Plan above. Pertinent Imaging: Chest X-ray: -Large cardiac silhouette -Left lower lobe opacity -Prominent pulmonary vasculature Head CT (no contrast): -Dental caries, periapical lucencies -Generalized cerebral volume loss Laboratory: -AST: 22 -ALT: <9 -Lactic acid: 0.7 -Urinalysis: significant pyuria (4-16), few squamous cells -VRE and Leidy albicans in urine Wound cultures: -History of MDR Pseudomonas (see details in Assessment) Additional Diagnostic Notes: See assessment for microbiology findings and relevant historical sensitivities. Plan discussed with: Patient MIRIAM ADLER MD Feb 04, 2025 21:55
[2025-02-05] VITALS (102 sets, daily range): BP systolic 66–146; BP diastolic 22–123; PULSE 67–123; RESP 11–26; TEMP 96.1–98.1; O2SAT 95–100
[2025-02-05] MEDS: POTASSIUM CHL 20MEQ/100ML 200 ML IV ONE (03:21)
[2025-02-05] MEDS: POTASSIUM CHL 20MEQ/100ML 100 ML IV SCH ×2 (03:45→22:08)
[2025-02-05 05:45] LABS: Hematocrit 31.0 % (36.0-46.0); Hemoglobin 10.6 g/dL (12.2-16.2); Mean Corpuscular Hemoglobin 28.1 pg (28.0-32.0); Mean Corpuscular Volume 82.2 fL (80.0-100.0); Nucleated Red Blood Cells % 0.4 %
[2025-02-05 05:53] LABS: Anion Gap 11 (5-15); Carbon Dioxide 24 mmol/L (20-31)
[2025-02-05 05:58] LABS: Glucose 90 mg/dL (74-106)
[2025-02-05 05:59] LABS: BUN/Creatinine Ratio 62.3 (10.0-20.0); Magnesium 1.7 mg/dL (1.6-2.6)
[2025-02-05 06:11] LABS: Blood Urea Nitrogen 66 mg/dL (9-23); Calcium 8.7 mg/dL (8.7-10.4); Chloride 94 mmol/L (98-107); Potassium 3.2 mmol/L (3.5-5.1); Sodium 129 mmol/L (136-145)
--- NOTE | 2025-02-05 13:03 | DVHPN2 ---
Consult Progress Note Date Seen: Feb 05, 2025 Subjective Patient reports: No new complaints Other Systems: Saw the patient at bedside, discussed with the primary team, primary RN and reviewed the chart. Objective vital signs Vital Sign Date Time Temp Pulse Resp B/P (MAP) Pulse Ox O2 Delivery O2 Flow Rate FiO2 02/05/25 11:20 98 Room Air 0.0 02/05/25 11:20 21 21 02/05/25 11:16 96.4 76 15 109/22 (51) 205.5 Total Intake and Output 02/04/25 02/04/25 02/05/25 15:00 23:00 07:00 Intake Total 1683.25 ml 1709.25 ml 1148.00 ml Output Total 625 ml 1800 ml Balance 1683.25 ml 1084.25 ml -652.00 ml medications Current Medications Medications Dose Ordered Sig/Taran Route Start Time Stop Time Status Last Admin Dose Admin Norepinephrine Bitartrate 250 ml @ 3.75 mls/hr Q24H IV 01/31/25 19:00 02/05/25 05:44 18.75 MLS/HR Ondansetron HCl 4 mg Q4HP PRN IV 01/31/25 19:30 Enoxaparin Sodium 40 mg DAILY SC 02/01/25 10:00 02/05/25 12:44 40 MG Acetaminophen 650 mg Q6HP PRN PO 01/31/25 19:30 02/04/25 08:36 650 MG Nitroglycerin 0.4 mg Q5MINP PRN SL 01/31/25 19:30 Carbidopa/Levodopa 2 tab HS PO 01/31/25 22:00 Levothyroxine Sodium 50 mcg QAM@0600 PO 02/01/25 06:00 02/05/25 06:48 50 MCG Albuterol 2.5 mg Q6HPRN PRN NEB 01/31/25 19:30 Acetaminophen/ Hydrocodone Bitart 1 tab Q6HPRN PRN PO 02/01/25 03:45 Furosemide 100 mg/ Sodium Chloride 110 ml @ 11 mls/hr Q10H IV 02/01/25 12:15 02/05/25 06:47 11 MLS/HR Digoxin 125 mcg DAILY IV 02/02/25 10:00 02/04/25 08:35 125 MCG Gentamicin Sulfate 0 ml @ 0 mls/hr PER PHARMACY IV 02/02/25 09:30 Levofloxacin/ Dextrose 100 ml @ 100 mls/hr DAILY@1700 IV 02/03/25 17:00 02/04/25 17:53 100 MLS/HR Diagnostic Test (Pha) 1 strip ACHS 02/03/25 17:00 02/05/25 12:45 1 STRIP Insulin Human Regular ACHS SC 02/03/25 17:00 Dextrose 50 ml UD PRN IV 02/03/25 16:45 laboratory and microbiology Laboratory Tests 02/05/25 04:51 Test 02/05/25 04:51 Range/Units Serum Glucose 90 74-106 mg/dL Gen: 79-year-old female in mild distress, morbidly obese Skin: Warm, dry, normal color and texture, no rash. HEENT: Normocephalic atraumatic, mucous membranes moist and pink. Neck: Cervical and supraclavicular nodes normal without enlargement, trachea is midline, thyroid gland is normal without masses. Pulmonary: Clear to auscultation and percussion bilaterally. Cardiac: Regular rate and rhythm. No murmur Abdomen: Soft, nontender, nondistended, bowel sounds present all 4 quadrants, no guarding, no rigidity, no organomegaly. Warm and dry, no rashes. Notable for serous oozing from sacral and buttock ulcers with some psoriatic component, scattered ecchymosis and blister on right upper arm, bilateral upper extremity ulcers, stage 12 ulcers on posterior thighs. Extremities: No cyanosis, clubbing, no edema Neuro: Cranial nerves II through XII grossly intact, normal affect and speech, no focal motor deficits. Problem List/Assessment/Plan Problem List/Assessment/Plan TANESHA Marie 79-year-old female with past medical history includes congestive heart failure, chronic kidney disease, diabetes mellitus, hypertension, hypothyroidism, anemia, atrial fibrillation and tonsillectomy presents with altered mental status following a recent onet progressive lethargy following a recent hospitalization for sepsis. 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 Presently, she has sacral and buttock ulcers with serous drainage, suggestive of pressure injury and psoriatic flare, along with stage 12 ulcers on her posterior thighs and ecchymosis with blistering on both upper extremities. She required Levophed for hypotension in the ED and was started on levofloxacin due to allergies to penicillin and ceftriaxone. Labs show mild lactic acidosis, significant pyuria, and VRE with presumptive *Leidy albicans* in the urine. Imaging reveals cerebral volume loss on head CT and a chest X-ray showing cardiomegaly, left lower lobe opacity, and prominent pulmonary vasculature. She lives with family, who deny any substance abuse. Assessment: #Acute complicated urinary tract infection, with Enterococcus faecium VRE and presumptive Leidy albicans on gentamicin #Sacral and buttock ulcers, including possible psoriatic involvement , negative blood culture from 01/31/2025 #Infected sacral ulcer #Septic shock, possibly due to more than one source of infection #Poor oral hygiene with dental caries, aspiration risk #Thrombocytopenia mild, limiting the use of linezolid #History of MDR Pseudomonas aeruginosa and ESBL E coli UTI history #Known allergy to ceftriaxone, morphine, penicillins and sulfa antibiotics #Recent sepsis related hospitalization in December 2024 #Past Surgical History of Tonsillectomy, negative for nasal MRSA colonization #Previous history of MRSA nasal colonization, status post decolonized #History of recurrent ESBL UTI #H/o Staphylococcus hominis, Staphylococcus auricularis, Staphylococcus epidermidis and ESBL E coli bacteremia in 2021 and 2019 respectively #intertrigo on topical nystatin antifungal powder - #Toxic versus metabolic encephalopathy secondary to sepsis #Diabetes mellitus # psoriasis #Hypovolemic hyponatremia #Yet to rule out digoxin toxicity #Anemia of chronic disease mixed with iron-deficiency anemia #[id number] protein energy malnutrition #Grade 3 obesity, chronically bed-bound #Congenital, horseshoe shaped kidney #Left hydronephrosis status post urethral stent #Heart failure with preserved ejection fraction #Acute kidney injury secondary to VMN #Chronic kidney disease (CKD) #H/o essential Hypertension #Hypothyroidism on levothyroxine #Hypovitaminosis D #Atrial fibrillation on Eliquis #Secondary hypercoagulable state #History of slow GI bleed #Parkinsonism #Restless leg syndrome #Osteoarthritis with or without component of psoriatic arthritis Plan: # The patient seems intravascularly dry with 3rd spacing, high protein diet with increasing albumin with replenishing the intravascular volume might help. Please reevaluate and discuss the need of IV Lasix drip cautiously. # Broad-spectrum antibiotics to continue with Levofloxacin and gentamicin to continue with close follow up of cultures. # Avoid overtreatment of urine culture organisms; current findings likely represent colonization. # Dietary/ nutrition consult with nutritional supplement with high-protein diet. # Further wound assessment and management for sacral and posterior thigh ulcers, including wound care consult and assessment for concomitant psoriatic component. # This geriatric patient exhibits multiple components of frailty and is being managed with supportive care, including maintaining a mean arterial pressure (MAP) above 65 mmHg with as-needed Levophed infusion, treatment for hypothermia, intensive care-level monitoring, and close tracking of intake and output with correction of electrolyte imbalances. Discussed with Dr. Adler. Infectious Disease we will continue to follow up the patient. Plan discussed with: Patient, Other (Primary team, family.) Dietary Evaluation Review Comments: 1. CCHO-60 2 gNa diet w 45g proein restriction 2. Try Devin for wound healing 3. Wt management 4. F/U with nephrology and updated lab values Expected Outcomes/Goals: Less uremic syndrome, controlled DM ION ROMERO RESIDENT Feb 05, 2025 13:03
--- NOTE | 2025-02-05 13:12 | DVHPN2 ---
Subjective More alert Still on Levophed Reviewed: Care Plan, H&P, Labs, Medications, Previous Orders, Radiology Changes from previous H/P or p: Changes Objective Vitals Vital Signs Date Time Temp Pulse Resp B/P (MAP) Pulse Ox O2 Delivery O2 Flow Rate FiO2 02/05/25 11:20 98 Room Air 0.0 02/05/25 11:20 21 21 02/05/25 11:16 96.4 76 15 109/22 (51) 205.5 Intake/Output Intake and Output 02/05/25 07:00 Intake Total 4540.50 ml Output Total 2425 ml Balance 2115.50 ml Intake Oral 3470 ml IV Total 1070.50 ml Output Urine Total 2425 ml # Bowel Movements 1 General Appearance: Alert, Other (Disoriented) Lungs: Other (Bilateral crackles) Cardiovascular: Regular rate, Normal S1, Normal S2 Abdomen: Normal bowel sounds, Soft, No tenderness Extremities: Other (2+ edema bilaterally in the lower extremities) Medications Current Medications Medications Dose Ordered Sig/Taran Route Start Time Stop Time Status Last Admin Dose Admin Norepinephrine Bitartrate 250 ml @ 3.75 mls/hr Q24H IV 01/31/25 19:00 02/05/25 05:44 18.75 MLS/HR Ondansetron HCl 4 mg Q4HP PRN IV 01/31/25 19:30 Enoxaparin Sodium 40 mg DAILY SC 02/01/25 10:00 02/05/25 12:44 40 MG Acetaminophen 650 mg Q6HP PRN PO 01/31/25 19:30 02/04/25 08:36 650 MG Nitroglycerin 0.4 mg Q5MINP PRN SL 01/31/25 19:30 Carbidopa/Levodopa 2 tab HS PO 01/31/25 22:00 Levothyroxine Sodium 50 mcg QAM@0600 PO 02/01/25 06:00 02/05/25 06:48 50 MCG Albuterol 2.5 mg Q6HPRN PRN NEB 01/31/25 19:30 Acetaminophen/ Hydrocodone Bitart 1 tab Q6HPRN PRN PO 02/01/25 03:45 Furosemide 100 mg/ Sodium Chloride 110 ml @ 11 mls/hr Q10H IV 02/01/25 12:15 02/05/25 06:47 11 MLS/HR Digoxin 125 mcg DAILY IV 02/02/25 10:00 02/04/25 08:35 125 MCG Gentamicin Sulfate 0 ml @ 0 mls/hr PER PHARMACY IV 02/02/25 09:30 Levofloxacin/ Dextrose 100 ml @ 100 mls/hr DAILY@1700 IV 02/03/25 17:00 02/04/25 17:53 100 MLS/HR Diagnostic Test (Pha) 1 strip ACHS 02/03/25 17:00 02/05/25 12:45 1 STRIP Insulin Human Regular ACHS SC 02/03/25 17:00 Dextrose 50 ml UD PRN IV 02/03/25 16:45 Laboratory Results Laboratory Tests 02/05/25 04:51 Chemistry Test 02/04/25 15:41 02/05/25 04:51 Albumin 2.6 g/dL (3.2-4.8) L Calcium Level 8.3 mg/dL (8.7-10.4) L 8.7 mg/dL (8.7-10.4) Magnesium Level 2.0 mg/dL (1.6-2.6) 1.7 mg/dL (1.6-2.6) Total Protein 4.4 g/dL (5.7-8.2) L LFT Test 02/04/25 15:41 Alanine Aminotransferase (ALT) 11 U/L (7-40) Alkaline Phosphatase 94 U/L (46-116) Aspartate Amino Transferase (AST) 19 U/L (13-40) Total Bilirubin 0.3 mg/dL (0.2-1.0) Urinalysis Test 01/31/25 16:30 Urine Color Colorless (Yellow) Urine Clarity Turbid (Clear) H Urine pH 6.0 (5.0-9.0) Urine Specific [place] 1.015 (1.001-1.035) Urine Protein 1+ (Negative) H Urine Ketones Trace (Negative) Urine Blood 1+ /uL (Negative) H Urine Nitrite Negative (Negative) Urine Bilirubin Negative (Negative) Urine Urobilinogen Normal mg/dL (Negative) Urine Leukocyte Esterase 3+ /uL (Negative) Urine RBC 9 /hpf (0 - 4) Urine WBC Clumps Present /hpf (None Seen) Urine Microscopic WBC 416 /HPF (0-5) H Urine Squamous Epithelial Cells Few /hpf (<5) Urine Bacteria Few /hpf (None Seen) H Urine Hyaline Casts Few /lpf (0 - 2) Urine Mucus Few (None Seen) Urine Yeast (Budding) Moderate /hpf (None Seen) Urine Glucose Normal mg/dL (Normal) Microbiology Microbiology Date/Time Source Procedure Growth Status 02/03/25 00:50 Nose MRSA Screen - Final Complete 01/31/25 16:30 Voided Urine Urine Culture - Final Enterococcus faecium - VRE Presumptive Leidy albicans Complete 01/31/25 11:10 Blood Blood Culture - Final NO GROWTH AFTER 5 DAYS OF INCUBATION. Complete Assessment/Plan Assessment/Plan Acute metabolic encephalopathy Septic shock due to UTI UTI Recent sepsis with a wound infection due to Pseudomonas aeruginosa MDRO Morbid obesity Bed-bound Type 2 diabetes Acute kidney injury Left hydronephrosis Horseshoe kidney Status post ureteral stent Chronic anemia Hyponatremia Atrial fibrillation Heart failure with preserved ejection fraction Plan Broad-spectrum antibiotics: Levofloxacin and gentamicin Vasopressors as needed, norepinephrine drip Cardiology consult Lasix drip per Dr. Cifuentes Full code Discussed with the daughter at the bedside Advance directives discussed for 20 minute 02/03/2025: Continue IV antibiotics Vasopressors Lasix Central line to be done by emergency room physician Cardiology consultation Dr. Cifuentes Monitor closely 02/04/2025: Replace magnesium and potassium Continue IV antibiotics Infectious Disease consultation Vasopressors as needed Lasix drip Monitor closely The rest of the management will depend on the hospital course 02/05/25: IV antibiotics: Gentamicin and levofloxacin Taper Levophed off as tolerated Lasix Replace K+ and Mg Plan discussed with: Patient, Daughter, Son Date of Service: Feb 05, 2025 Billing Provider: FALUGNI CM MD Common Visit Codes: [id number] INP/OBS CARE(HIGH) FALGUNI CM MD Feb 05, 2025 13:12
--- NOTE | 2025-02-05 13:52 | DVHPN2 ---
Progress Note - Dictate Date Seen: Feb 03, 2025 Medical Necessity Reason Pt with a Central, PICC or Fol: Yes The following are medically ne: Hook Catheter Subjective SHE BECAME UNRESPONSIVE BLOOD SUGAR 166 SHE WAS MILDLY HYPOTENSIVE HAD LEFT SIGHT ARM MOVEMENT LASTED ABOUT 10 MINUTES TOTAL/ NO CLEAR POST ICTAL PERIOD PRESENTATION CONSISTENT WITH METABOLIC SYNDROME/ INFECTION ESPECIALLY WITH HER RECENT ADMISSION FOR SEPSIS/ BACTEREMIA RECENT HX OF HYPOTENSION POSITIVE BLOOD CX STAPH PRODUCTIVE COUGH HYPOXIA SEVERE ANEMIA HX OF BLEEDING DIATHESIS NOW BEING TRANSFUSE PMH; HEMATURIA HX OF ORGANIC HD S/P TAVR HX OF AV STENOSIS HTN HFpEF DIASTOLIC DYSFUNCTION AFIB ON SOTALOL HYPERCOAGULABLE STATE HX OF DVT MORBID OBESITY 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 ANEMIA HYPONATREMIA DECUB STAGE II MULTIPLE ORGANISM PSEUDOMONAS vital signs Vital Sign Date Time Temp Pulse Resp B/P (MAP) Pulse Ox O2 Delivery O2 Flow Rate FiO2 02/05/25 13:11 84 02/05/25 12:00 19 99 Room Air* 0 21 02/05/25 11:16 96.4 109/22 (51) 205.5 Total Intake and Output 02/04/25 02/04/25 02/05/25 15:00 23:00 07:00 Intake Total 1683.25 ml 1709.25 ml 1148.00 ml Output Total 625 ml 1800 ml Balance 1683.25 ml 1084.25 ml -652.00 ml medications Current Medications Medications Dose Ordered Sig/Taran Route Start Time Stop Time Status Last Admin Dose Admin Norepinephrine Bitartrate 250 ml @ 3.75 mls/hr Q24H IV 01/31/25 19:00 02/05/25 05:44 18.75 MLS/HR Ondansetron HCl 4 mg Q4HP PRN IV 01/31/25 19:30 Enoxaparin Sodium 40 mg DAILY SC 02/01/25 10:00 02/05/25 12:44 40 MG Acetaminophen 650 mg Q6HP PRN PO 01/31/25 19:30 02/04/25 08:36 650 MG Nitroglycerin 0.4 mg Q5MINP PRN SL 01/31/25 19:30 Carbidopa/Levodopa 2 tab HS PO 01/31/25 22:00 Levothyroxine Sodium 50 mcg QAM@0600 PO 02/01/25 06:00 02/05/25 06:48 50 MCG Albuterol 2.5 mg Q6HPRN PRN NEB 01/31/25 19:30 Acetaminophen/ Hydrocodone Bitart 1 tab Q6HPRN PRN PO 02/01/25 03:45 Furosemide 100 mg/ Sodium Chloride 110 ml @ 11 mls/hr Q10H IV 02/01/25 12:15 02/05/25 06:47 11 MLS/HR Digoxin 125 mcg DAILY IV 02/02/25 10:00 02/05/25 13:11 125 MCG Gentamicin Sulfate 0 ml @ 0 mls/hr PER PHARMACY IV 02/02/25 09:30 Levofloxacin/ Dextrose 100 ml @ 100 mls/hr DAILY@1700 IV 02/03/25 17:00 02/04/25 17:53 100 MLS/HR Diagnostic Test (Pha) 1 strip ACHS 02/03/25 17:00 02/05/25 12:45 1 STRIP Insulin Human Regular ACHS SC 02/03/25 17:00 Dextrose 50 ml UD PRN IV 02/03/25 16:45 Magnesium Sulfate/ Dextrose 100 ml @ 100 mls/hr Q1HR IV 02/05/25 14:00 02/05/25 15:59 laboratory and microbiology Laboratory Tests 02/05/25 04:51 Test 02/05/25 04:51 Range/Units Serum Glucose 90 74-106 mg/dL Problem List SHE BECAME UNRESPONSIVE BLOOD SUGAR 166 HYPOTENSIVE HAD LEFT SIGHT ARM MOVEMENT LASTED ABOUT 10 MINUTES TOTAL/ NO CLEAR POST ICTAL PERIOD PRESENTATION CONSISTENT WITH METABOLIC SYNDROME/ INFECTION ESPECIALLY WITH HER RECENT ADMISSION FOR SEPSIS/ BACTEREMIA RECENT HX OF HYPOTENSION POSITIVE BLOOD CX STAPH PRODUCTIVE COUGH HYPOXIA SEVERE ANEMIA HX OF BLEEDING DIATHESIS NOW BEING TRANSFUSE PMH; HEMATURIA HX OF ORGANIC HD S/P TAVR HX OF AV STENOSIS HTN HFpEF DIASTOLIC DYSFUNCTION AFIB ON SOTALOL HYPERCOAGULABLE STATE HX OF DVT MORBID OBESITY 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 ANEMIA HYPONATREMIA PSEUDOMONAS INFECTION Assessment/Plan ABX PRESSORS WOUND CARE TRIPLE LUMEN INSERTION Dietary Evaluation Review Comments: 1. CCHO-60 2 gNa diet w 45g proein restriction 2. Try Devin for wound healing 3. Wt management 4. F/U with nephrology and updated lab values Expected Outcomes/Goals: Less uremic syndrome, controlled DM Plan discussed with: Patient Critical Care Time(min): 35 ARUNASALAM,MONTRELL MD Feb 05, 2025 13:52
[2025-02-05] MEDS: MAGNESIUM SULFATE 1GM/100ML 100 ML IV ONE ×2 (14:28→16:23)
[2025-02-05] MEDS: MAGNESIUM SULFATE 1GM/100ML 100 ML IV SCH (14:31)
[2025-02-05] MEDS: FUROSEMIDE INJECTION 100 MG in SODIUM CHL 0.9% 100 ML IV SCH (16:19)
[2025-02-05] MEDS: Glucerna Carbsteady SHAKE Vanilla 8oz PO SCH (18:30)
[2025-02-05 21:33] LABS: Potassium 2.8 mmol/L (3.5-5.1)
[2025-02-05 21:37] LABS: Magnesium 2.0 mg/dL (1.6-2.6)
[2025-02-06] VITALS (107 sets, daily range): BP systolic 69–150; BP diastolic 19–102; PULSE 73–111; RESP 10–23; TEMP 96.1–97.5; O2SAT 91–100
[2025-02-06 05:24] LABS: Hematocrit 30.1 % (36.0-46.0); Hemoglobin 10.1 g/dL (12.2-16.2); Mean Corpuscular Hemoglobin 27.7 pg (28.0-32.0); Mean Corpuscular Volume 82.6 fL (80.0-100.0); Nucleated Red Blood Cells % 0.2 %
[2025-02-06 05:34] LABS: Alanine Aminotransferase 10 U/L (7-40); Alkaline Phosphatase 91 U/L (46-116); Anion Gap 10 (5-15); BUN/Creatinine Ratio 65.1 (10.0-20.0); Carbon Dioxide 23 mmol/L (20-31); Glucose 92 mg/dL (74-106); Magnesium 1.9 mg/dL (1.6-2.6); Potassium 3.5 mmol/L (3.5-5.1)
[2025-02-06 05:35] LABS: Bilirubin, Total 0.3 mg/dL (0.2-1.0)
[2025-02-06 05:47] LABS: Albumin 2.6 g/dL (3.2-4.8); Blood Urea Nitrogen 69 mg/dL (9-23); Calcium 8.4 mg/dL (8.7-10.4); Chloride 95 mmol/L (98-107); Sodium 128 mmol/L (136-145); Total Protein 4.3 g/dL (5.7-8.2)
--- NOTE | 2025-02-06 09:06 | DVHPN2 ---
Consult Progress Note Date Seen: Feb 06, 2025 Subjective Patient reports: No new complaints Other Systems: Saw the patient at bedside, discussed with the primary team, primary RN and reviewed the chart. Beverly is dehydrated with 3rd spacing still on lasix drip will consider slowing down in diuresis 1500 cc urine output in last 24 hours now progressed to tachycardia and low BP as hypovolumia continues. Back to baseline in terms of mental state, more alert and awake. 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 Skin: Warm, dry, normal color and texture, no rash. HEENT: Normocephalic atraumatic, mucous membranes moist and pink. Neck: Cervical and supraclavicular nodes normal without enlargement, trachea is midline, thyroid gland is normal without masses. Pulmonary: Clear to auscultation and percussion bilaterally. Cardiac: Regular rate and rhythm. No murmur Abdomen: Soft, nontender, nondistended, bowel sounds present all 4 quadrants, no guarding, no rigidity, no organomegaly. Warm and dry, no rashes. Notable for serous oozing from sacral and buttock ulcers with some psoriatic component, scattered ecchymosis and blister on right upper arm, bilateral upper extremity ulcers, stage 12 ulcers on posterior thighs. Extremities: No cyanosis, clubbing, no edema Neuro: Cranial nerves II through XII grossly intact, normal affect and speech, no focal motor deficits. medications Current Medications Medications Dose Ordered Sig/Taran Route Start Time Stop Time Status Last Admin Dose Admin Norepinephrine Bitartrate 250 ml @ 3.75 mls/hr Q24H IV 01/31/25 19:00 02/05/25 17:40 15 MLS/HR Ondansetron HCl 4 mg Q4HP PRN IV 01/31/25 19:30 Enoxaparin Sodium 40 mg DAILY SC 02/01/25 10:00 02/05/25 12:44 40 MG Acetaminophen 650 mg Q6HP PRN PO 01/31/25 19:30 02/04/25 08:36 650 MG Nitroglycerin 0.4 mg Q5MINP PRN SL 01/31/25 19:30 Carbidopa/Levodopa 2 tab HS PO 01/31/25 22:00 Levothyroxine Sodium 50 mcg QAM@0600 PO 02/01/25 06:00 02/06/25 06:42 50 MCG Albuterol 2.5 mg Q6HPRN PRN NEB 01/31/25 19:30 Acetaminophen/ Hydrocodone Bitart 1 tab Q6HPRN PRN PO 02/01/25 03:45 Digoxin 125 mcg DAILY IV 02/02/25 10:00 02/05/25 13:11 125 MCG Gentamicin Sulfate 0 ml @ 0 mls/hr PER PHARMACY IV 02/02/25 09:30 Levofloxacin/ Dextrose 100 ml @ 100 mls/hr DAILY@1700 IV 02/03/25 17:00 02/05/25 17:39 100 MLS/HR Diagnostic Test (Pha) 1 strip ACHS 02/03/25 17:00 02/06/25 06:42 1 STRIP Insulin Human Regular ACHS SC 02/03/25 17:00 Dextrose 50 ml UD PRN IV 02/03/25 16:45 Furosemide 100 mg/ Sodium Chloride 110 ml @ 22 mls/hr Q5H IV 02/05/25 14:15 02/06/25 05:39 22 MLS/HR Enteral Nutritional Formula 240 ml TIDWM PO 02/05/25 18:30 laboratory and microbiology Laboratory Tests 02/06/25 04:59 Test 02/06/25 04:59 Range/Units Serum Glucose 92 74-106 mg/dL Problem List/Assessment/Plan Problem List/Assessment/Plan TANESHA Marie 79-year-old female with past medical history includes congestive heart failure, chronic kidney disease, diabetes mellitus, hypertension, hypothyroidism, anemia, atrial fibrillation and tonsillectomy presents with altered mental status following a recent onet progressive lethargy following a recent hospitalization for sepsis. 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 Presently, she has sacral and buttock ulcers with serous drainage, suggestive of pressure injury and psoriatic flare, along with stage 12 ulcers on her posterior thighs and ecchymosis with blistering on both upper extremities. She required Levophed for hypotension in the ED and was started on levofloxacin due to allergies to penicillin and ceftriaxone. Labs show mild lactic acidosis, significant pyuria, and VRE with presumptive *Leidy albicans* in the urine. Imaging reveals cerebral volume loss on head CT and a chest X-ray showing cardiomegaly, left lower lobe opacity, and prominent pulmonary vasculature. She lives with family, who deny any substance abuse. Assessment: #Acute complicated urinary tract infection, with Enterococcus faecium VRE and presumptive Leidy albicans on gentamicin #Sacral and buttock ulcers, including possible psoriatic involvement , negative blood culture from 01/31/2025 #Infected sacral ulcer #Septic shock, possibly due to more than one source of infection #Poor oral hygiene with dental caries, aspiration risk #Thrombocytopenia mild, limiting the use of linezolid #History of MDR Pseudomonas aeruginosa and ESBL E coli UTI history #Known allergy to ceftriaxone, morphine, penicillins and sulfa antibiotics #Recent sepsis related hospitalization in December 2024 #Past Surgical History of Tonsillectomy, negative for nasal MRSA colonization #Previous history of MRSA nasal colonization, status post decolonized #History of recurrent ESBL UTI #H/o Staphylococcus hominis, Staphylococcus auricularis, Staphylococcus epidermidis and ESBL E coli bacteremia in 2021 and 2018 respectively #intertrigo on topical nystatin antifungal powder - #Toxic versus metabolic encephalopathy secondary to sepsis #Diabetes mellitus # psoriasis #Hypovolemic hyponatremia #Yet to rule out digoxin toxicity #Anemia of chronic disease mixed with iron-deficiency anemia #[id number] protein energy malnutrition #Grade 3 obesity, chronically bed-bound #Congenital, horseshoe shaped kidney #Left hydronephrosis status post urethral stent #Heart failure with preserved ejection fraction #Acute kidney injury secondary to VMN #Chronic kidney disease (CKD) #H/o essential Hypertension #Hypothyroidism on levothyroxine #Hypovitaminosis D #Atrial fibrillation on Eliquis #Secondary hypercoagulable state #History of slow GI bleed #Parkinsonism #Restless leg syndrome #Osteoarthritis with or without component of psoriatic arthritis Plan: # S/p 5 days of Levofloxacin and gentamicin. Will discontinue and look for further signs of infection. # The patient seems intravascularly dry with 3rd spacing, high protein diet with increasing albumin with replenishing the intravascular volume might help. Please reevaluate and discuss the need of IV Lasix drip cautiously. # Avoid overtreatment of urine culture organisms; current findings likely represent colonization. # Dietary/ nutrition consult with nutritional supplement with high-protein diet. # Further wound assessment and management for sacral and posterior thigh ulcers, including wound care consult and assessment for concomitant psoriatic component. # This geriatric patient exhibits multiple components of frailty and is being managed with supportive care, including maintaining a mean arterial pressure (MAP) above 65 mmHg with as-needed Levophed infusion, treatment for hypothermia, intensive care-level monitoring, and close tracking of intake and output with correction of electrolyte imbalances. Discussed with Dr. Adler. Infectious Disease we will continue to follow up the patient. Plan discussed with: Patient, Son, Other (primary team. ) Dietary Evaluation Review Comments: 1. CCHO-60 2 gNa diet w 45g proein restriction 2. Try Devin for wound healing 3. Wt management 4. F/U with nephrology and updated lab values Expected Outcomes/Goals: Less uremic syndrome, controlled DM ION ROMERO RESIDENT Feb 06, 2025 09:06
--- NOTE | 2025-02-06 10:03 | DVHPN2 ---
Subjective More alert Still on Levophed Reviewed: Care Plan, H&P, Labs, Medications, Previous Orders, Radiology Changes from previous H/P or p: Changes Objective Vitals Vital Signs Date Time Temp Pulse Resp B/P (MAP) Pulse Ox O2 Delivery O2 Flow Rate FiO2 02/06/25 10:00 107 02/06/25 08:00 14 100 Room Air* 0 21 02/06/25 06:45 96.3 114/85 (95) 205.3 Intake/Output Intake and Output 02/06/25 07:00 Intake Total 2311.50 ml Output Total 2500 ml Balance -188.50 ml Intake Oral 900 ml IV Total 1411.50 ml Output Urine Total 2500 ml # Bowel Movements 2 General Appearance: Alert, Other (Disoriented) Lungs: Other (Bilateral crackles) Cardiovascular: Regular rate, Normal S1, Normal S2 Abdomen: Normal bowel sounds, Soft, No tenderness Extremities: Other (2+ edema bilaterally in the lower extremities) Medications Current Medications Medications Dose Ordered Sig/Taran Route Start Time Stop Time Status Last Admin Dose Admin Norepinephrine Bitartrate 250 ml @ 3.75 mls/hr Q24H IV 01/31/25 19:00 02/05/25 17:40 15 MLS/HR Ondansetron HCl 4 mg Q4HP PRN IV 01/31/25 19:30 Enoxaparin Sodium 40 mg DAILY SC 02/01/25 10:00 02/06/25 10:01 40 MG Acetaminophen 650 mg Q6HP PRN PO 01/31/25 19:30 02/04/25 08:36 650 MG Nitroglycerin 0.4 mg Q5MINP PRN SL 01/31/25 19:30 Carbidopa/Levodopa 2 tab HS PO 01/31/25 22:00 Levothyroxine Sodium 50 mcg QAM@0600 PO 02/01/25 06:00 02/06/25 06:42 50 MCG Albuterol 2.5 mg Q6HPRN PRN NEB 01/31/25 19:30 Acetaminophen/ Hydrocodone Bitart 1 tab Q6HPRN PRN PO 02/01/25 03:45 Digoxin 125 mcg DAILY IV 02/02/25 10:00 02/06/25 10:00 125 MCG Gentamicin Sulfate 0 ml @ 0 mls/hr PER PHARMACY IV 02/02/25 09:30 Levofloxacin/ Dextrose 100 ml @ 100 mls/hr DAILY@1700 IV 02/03/25 17:00 02/05/25 17:39 100 MLS/HR Diagnostic Test (Pha) 1 strip ACHS 02/03/25 17:00 02/06/25 06:42 1 STRIP Insulin Human Regular ACHS SC 02/03/25 17:00 Dextrose 50 ml UD PRN IV 02/03/25 16:45 Furosemide 100 mg/ Sodium Chloride 110 ml @ 22 mls/hr Q5H IV 02/05/25 14:15 02/06/25 05:39 22 MLS/HR Enteral Nutritional Formula 240 ml TIDWM PO 02/05/25 18:30 Laboratory Results Laboratory Tests 02/06/25 04:59 Chemistry Test 02/05/25 21:06 02/06/25 04:59 Magnesium Level 2.0 mg/dL (1.6-2.6) 1.9 mg/dL (1.6-2.6) Albumin 2.6 g/dL (3.2-4.8) L Calcium Level 8.4 mg/dL (8.7-10.4) L Total Protein 4.3 g/dL (5.7-8.2) L LFT Test 02/06/25 04:59 Alanine Aminotransferase (ALT) 10 U/L (7-40) Alkaline Phosphatase 91 U/L (46-116) Aspartate Amino Transferase (AST) 18 U/L (13-40) Total Bilirubin 0.3 mg/dL (0.2-1.0) Urinalysis Test 01/31/25 16:30 Urine Color Colorless (Yellow) Urine Clarity Turbid (Clear) H Urine pH 6.0 (5.0-9.0) Urine Specific [place] 1.015 (1.001-1.035) Urine Protein 1+ (Negative) H Urine Ketones Trace (Negative) Urine Blood 1+ /uL (Negative) H Urine Nitrite Negative (Negative) Urine Bilirubin Negative (Negative) Urine Urobilinogen Normal mg/dL (Negative) Urine Leukocyte Esterase 3+ /uL (Negative) Urine RBC 9 /hpf (0 - 4) Urine WBC Clumps Present /hpf (None Seen) Urine Microscopic WBC 416 /HPF (0-5) H Urine Squamous Epithelial Cells Few /hpf (<5) Urine Bacteria Few /hpf (None Seen) H Urine Hyaline Casts Few /lpf (0 - 2) Urine Mucus Few (None Seen) Urine Yeast (Budding) Moderate /hpf (None Seen) Urine Glucose Normal mg/dL (Normal) Microbiology Microbiology Date/Time Source Procedure Growth Status 02/03/25 00:50 Nose MRSA Screen - Final Complete 01/31/25 16:30 Voided Urine Urine Culture - Final Enterococcus faecium - VRE Presumptive Leidy albicans Complete 01/31/25 11:10 Blood Blood Culture - Final NO GROWTH AFTER 5 DAYS OF INCUBATION. Complete Assessment/Plan Assessment/Plan Acute metabolic encephalopathy Septic shock due to UTI UTI Recent sepsis with a wound infection due to Pseudomonas aeruginosa MDRO Morbid obesity Bed-bound Type 2 diabetes Acute kidney injury Left hydronephrosis Horseshoe kidney Status post ureteral stent Chronic anemia Hyponatremia Atrial fibrillation Heart failure with preserved ejection fraction Plan Broad-spectrum antibiotics: Levofloxacin and gentamicin Vasopressors as needed, norepinephrine drip Cardiology consult Lasix drip per Dr. Cifuentes Full code Discussed with the daughter at the bedside Advance directives discussed for 20 minute 02/03/2025: Continue IV antibiotics Vasopressors Lasix Central line to be done by emergency room physician Cardiology consultation Dr. Cifuentes Monitor closely 02/04/2025: Replace magnesium and potassium Continue IV antibiotics Infectious Disease consultation Vasopressors as needed Lasix drip Monitor closely The rest of the management will depend on the hospital course 02/05/25: IV antibiotics: Gentamicin and levofloxacin Taper Levophed off as tolerated Lasix Replace K+ and Mg 02/06/2025: Continue the current management Tapered off the Levophed as tolerated Continue Lasix Replace potassium magnesium as needed Plan discussed with: Patient My Orders Orders - FALGUNI CM MD Procedure Category Date Status Time Gentamycin, Random LAB 02/07/25 Verified 04:00 Creatinine LAB 02/07/25 Verified 04:00 Date of Service: Feb 06, 2025 Billing Provider: FALGUNI CM MD Common Visit Codes: [id number] INP/OBS CARE(HIGH) FALGUNI CM MD Feb 06, 2025 10:03
--- NOTE | 2025-02-06 13:48 | DVHPN2 ---
Progress Note - Dictate Date Seen: Feb 05, 2025 Medical Necessity Reason Pt with a Central, PICC or Fol: Yes The following are medically ne: Hook Catheter Subjective SHE BECAME UNRESPONSIVE BLOOD SUGAR 166 SHE WAS MILDLY HYPOTENSIVE HAD LEFT SIGHT ARM MOVEMENT LASTED ABOUT 10 MINUTES TOTAL/ NO CLEAR POST ICTAL PERIOD PRESENTATION CONSISTENT WITH METABOLIC SYNDROME/ INFECTION ESPECIALLY WITH HER RECENT ADMISSION FOR SEPSIS/ BACTEREMIA RECENT HX OF HYPOTENSION POSITIVE BLOOD CX STAPH PRODUCTIVE COUGH HYPOXIA SEVERE ANEMIA HX OF BLEEDING DIATHESIS NOW BEING TRANSFUSE PMH; HEMATURIA HX OF ORGANIC HD S/P TAVR HX OF AV STENOSIS HTN HFpEF DIASTOLIC DYSFUNCTION AFIB ON SOTALOL HYPERCOAGULABLE STATE HX OF DVT MORBID OBESITY 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 ANEMIA HYPONATREMIA DECUB STAGE II MULTIPLE ORGANISM PSEUDOMONAS vital signs Vital Sign Date Time Temp Pulse Resp B/P (MAP) Pulse Ox O2 Delivery O2 Flow Rate FiO2 02/06/25 11:36 94/47 02/06/25 10:00 107 02/06/25 08:00 14 100 Room Air* 0 21 02/06/25 06:45 96.3 205.3 Total Intake and Output 02/05/25 02/05/25 02/06/25 15:00 23:00 07:00 Intake Total 252.75 ml 1349.75 ml 709 ml Output Total 1000 ml 1500 ml Balance 252.75 ml 349.75 ml -791 ml medications Current Medications Medications Dose Ordered Sig/Taran Route Start Time Stop Time Status Last Admin Dose Admin Norepinephrine Bitartrate 250 ml @ 3.75 mls/hr Q24H IV 01/31/25 19:00 02/05/25 17:40 15 MLS/HR Ondansetron HCl 4 mg Q4HP PRN IV 01/31/25 19:30 Enoxaparin Sodium 40 mg DAILY SC 02/01/25 10:00 02/06/25 10:01 40 MG Acetaminophen 650 mg Q6HP PRN PO 01/31/25 19:30 02/04/25 08:36 650 MG Nitroglycerin 0.4 mg Q5MINP PRN SL 01/31/25 19:30 Carbidopa/Levodopa 2 tab HS PO 01/31/25 22:00 Levothyroxine Sodium 50 mcg QAM@0600 PO 02/01/25 06:00 02/06/25 06:42 50 MCG Albuterol 2.5 mg Q6HPRN PRN NEB 01/31/25 19:30 Acetaminophen/ Hydrocodone Bitart 1 tab Q6HPRN PRN PO 02/01/25 03:45 Digoxin 125 mcg DAILY IV 02/02/25 10:00 02/06/25 10:00 125 MCG Gentamicin Sulfate 0 ml @ 0 mls/hr PER PHARMACY IV 02/02/25 09:30 Levofloxacin/ Dextrose 100 ml @ 100 mls/hr DAILY@1700 IV 02/03/25 17:00 02/05/25 17:39 100 MLS/HR Diagnostic Test (Pha) 1 strip ACHS 02/03/25 17:00 02/06/25 11:36 1 STRIP Insulin Human Regular ACHS SC 02/03/25 17:00 Dextrose 50 ml UD PRN IV 02/03/25 16:45 Furosemide 100 mg/ Sodium Chloride 110 ml @ 22 mls/hr Q5H IV 02/05/25 14:15 02/06/25 11:36 22 MLS/HR Enteral Nutritional Formula 240 ml TIDWM PO 02/05/25 18:30 02/06/25 11:38 240 ML laboratory and microbiology Laboratory Tests 02/06/25 04:59 Test 02/06/25 04:59 Range/Units Serum Glucose 92 74-106 mg/dL Problem List SHE BECAME UNRESPONSIVE BLOOD SUGAR 166 HYPOTENSIVE HAD LEFT SIGHT ARM MOVEMENT LASTED ABOUT 10 MINUTES TOTAL/ NO CLEAR POST ICTAL PERIOD PRESENTATION CONSISTENT WITH METABOLIC SYNDROME/ INFECTION ESPECIALLY WITH HER RECENT ADMISSION FOR SEPSIS/ BACTEREMIA RECENT HX OF HYPOTENSION POSITIVE BLOOD CX STAPH PRODUCTIVE COUGH HYPOXIA SEVERE ANEMIA HX OF BLEEDING DIATHESIS NOW BEING TRANSFUSE PMH; HEMATURIA HX OF ORGANIC HD S/P TAVR HX OF AV STENOSIS HTN HFpEF DIASTOLIC DYSFUNCTION AFIB ON SOTALOL HYPERCOAGULABLE STATE HX OF DVT MORBID OBESITY 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 ANEMIA HYPONATREMIA PSEUDOMONAS INFECTION Assessment/Plan ABX PRESSORS WOUND CARE TRIPLE LUMEN INSERTION Dietary Evaluation Review Comments: 1. CCHO-60 2 gNa diet w 45g proein restriction 2. Try Devin for wound healing 3. Wt management 4. F/U with nephrology and updated lab values Expected Outcomes/Goals: Less uremic syndrome, controlled DM Plan discussed with: Patient Critical Care Time(min): 35 MONTRELL RANKIN MD Feb 06, 2025 13:48
--- NOTE | 2025-02-06 13:51 | DVHPN2 ---
Progress Note - Dictate Date Seen: Feb 06, 2025 Medical Necessity Reason Pt with a Central, PICC or Fol: Yes The following are medically ne: Hook Catheter Subjective SHE BECAME UNRESPONSIVE BLOOD SUGAR 166 SHE WAS MILDLY HYPOTENSIVE HAD LEFT SIGHT ARM MOVEMENT LASTED ABOUT 10 MINUTES TOTAL/ NO CLEAR POST ICTAL PERIOD PRESENTATION CONSISTENT WITH METABOLIC SYNDROME/ INFECTION ESPECIALLY WITH HER RECENT ADMISSION FOR SEPSIS/ BACTEREMIA RECENT HX OF HYPOTENSION POSITIVE BLOOD CX STAPH PRODUCTIVE COUGH HYPOXIA SEVERE ANEMIA HX OF BLEEDING DIATHESIS NOW BEING TRANSFUSE PMH; HEMATURIA HX OF ORGANIC HD S/P TAVR HX OF AV STENOSIS HTN HFpEF DIASTOLIC DYSFUNCTION AFIB ON SOTALOL HYPERCOAGULABLE STATE HX OF DVT MORBID OBESITY 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 ANEMIA HYPONATREMIA DECUB STAGE II MULTIPLE ORGANISM PSEUDOMONAS vital signs Vital Sign Date Time Temp Pulse Resp B/P (MAP) Pulse Ox O2 Delivery O2 Flow Rate FiO2 02/06/25 11:36 94/47 02/06/25 10:00 107 02/06/25 08:00 14 100 Room Air* 0 21 02/06/25 06:45 96.3 205.3 Total Intake and Output 02/05/25 02/05/25 02/06/25 15:00 23:00 07:00 Intake Total 252.75 ml 1349.75 ml 709 ml Output Total 1000 ml 1500 ml Balance 252.75 ml 349.75 ml -791 ml medications Current Medications Medications Dose Ordered Sig/Taran Route Start Time Stop Time Status Last Admin Dose Admin Norepinephrine Bitartrate 250 ml @ 3.75 mls/hr Q24H IV 01/31/25 19:00 02/05/25 17:40 15 MLS/HR Ondansetron HCl 4 mg Q4HP PRN IV 01/31/25 19:30 Enoxaparin Sodium 40 mg DAILY SC 02/01/25 10:00 02/06/25 10:01 40 MG Acetaminophen 650 mg Q6HP PRN PO 01/31/25 19:30 02/04/25 08:36 650 MG Nitroglycerin 0.4 mg Q5MINP PRN SL 01/31/25 19:30 Carbidopa/Levodopa 2 tab HS PO 01/31/25 22:00 Levothyroxine Sodium 50 mcg QAM@0600 PO 02/01/25 06:00 02/06/25 06:42 50 MCG Albuterol 2.5 mg Q6HPRN PRN NEB 01/31/25 19:30 Acetaminophen/ Hydrocodone Bitart 1 tab Q6HPRN PRN PO 02/01/25 03:45 Digoxin 125 mcg DAILY IV 02/02/25 10:00 02/06/25 10:00 125 MCG Gentamicin Sulfate 0 ml @ 0 mls/hr PER PHARMACY IV 02/02/25 09:30 Levofloxacin/ Dextrose 100 ml @ 100 mls/hr DAILY@1700 IV 02/03/25 17:00 02/05/25 17:39 100 MLS/HR Diagnostic Test (Pha) 1 strip ACHS 02/03/25 17:00 02/06/25 11:36 1 STRIP Insulin Human Regular ACHS SC 02/03/25 17:00 Dextrose 50 ml UD PRN IV 02/03/25 16:45 Furosemide 100 mg/ Sodium Chloride 110 ml @ 22 mls/hr Q5H IV 02/05/25 14:15 02/06/25 11:36 22 MLS/HR Enteral Nutritional Formula 240 ml TIDWM PO 02/05/25 18:30 02/06/25 11:38 240 ML laboratory and microbiology Laboratory Tests 02/06/25 04:59 Test 02/06/25 04:59 Range/Units Serum Glucose 92 74-106 mg/dL Problem List SHE BECAME UNRESPONSIVE BLOOD SUGAR 166 HYPOTENSIVE HAD LEFT SIGHT ARM MOVEMENT LASTED ABOUT 10 MINUTES TOTAL/ NO CLEAR POST ICTAL PERIOD PRESENTATION CONSISTENT WITH METABOLIC SYNDROME/ INFECTION ESPECIALLY WITH HER RECENT ADMISSION FOR SEPSIS/ BACTEREMIA RECENT HX OF HYPOTENSION POSITIVE BLOOD CX STAPH PRODUCTIVE COUGH HYPOXIA SEVERE ANEMIA HX OF BLEEDING DIATHESIS NOW BEING TRANSFUSE PMH; HEMATURIA HX OF ORGANIC HD S/P TAVR HX OF AV STENOSIS HTN HFpEF DIASTOLIC DYSFUNCTION AFIB ON SOTALOL HYPERCOAGULABLE STATE HX OF DVT MORBID OBESITY 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 ANEMIA HYPONATREMIA PSEUDOMONAS INFECTION Assessment/Plan ABX PRESSORS WOUND CARE TRIPLE LUMEN INSERTION DC [facility] Dietary Evaluation Review Comments: 1. CCHO-60 2 gNa diet w 45g proein restriction 2. Try Devin for wound healing 3. Wt management 4. F/U with nephrology and updated lab values Expected Outcomes/Goals: Less uremic syndrome, controlled DM Plan discussed with: Patient MONTRELL RANKIN MD Feb 06, 2025 13:51
[2025-02-07] VITALS (94 sets, daily range): BP systolic 72–152; BP diastolic 16–102; PULSE 71–122; RESP 9–27; TEMP 95.8–97.7; O2SAT 89–100
[2025-02-07] MEDS: HYDROcodone-ACET 5/325MG TAB PO PRN (01:22)
[2025-02-07 05:36] LABS: Hematocrit 28.5 % (36.0-46.0); Hemoglobin 9.9 g/dL (12.2-16.2); Mean Corpuscular Hemoglobin 28.5 pg (28.0-32.0); Mean Corpuscular Volume 82.4 fL (80.0-100.0); Nucleated Red Blood Cells % 0.1 %
[2025-02-07 05:38] LABS: Anion Gap 11 (5-15); Carbon Dioxide 24 mmol/L (20-31)
[2025-02-07 05:44] LABS: Glucose 89 mg/dL (74-106)
[2025-02-07 05:45] LABS: BUN/Creatinine Ratio 71.2 (10.0-20.0); Magnesium 1.8 mg/dL (1.6-2.6)
[2025-02-07 05:55] LABS: Blood Urea Nitrogen 74 mg/dL (9-23); Calcium 8.6 mg/dL (8.7-10.4); Chloride 93 mmol/L (98-107); Potassium 3.1 mmol/L (3.5-5.1); Sodium 128 mmol/L (136-145)
[2025-02-07] MEDS ORDERED: POTASSIUM EFFERVESENT TAB 25 MEQ GT ONE (07:10)
--- NOTE | 2025-02-07 08:24 | DVHPN2 ---
Subjective He is alert and oriented now She is still on Levophed drip She is off Lasix drip Reviewed: Care Plan, H&P, Labs, Medications, Previous Orders, Radiology Changes from previous H/P or p: Changes Objective Vitals Vital Signs Date Time Temp Pulse Resp B/P (MAP) Pulse Ox O2 Delivery O2 Flow Rate FiO2 02/07/25 06:45 79 17 92/58 (69) 99 02/07/25 06:00 Room Air* 0 21 02/07/25 04:01 97.7 97.7 Intake/Output Intake and Output 02/07/25 07:00 Intake Total 868.50 ml Output Total 1300 ml Balance -431.50 ml Intake Oral 650 ml IV Total 218.50 ml Output Urine Total 1300 ml # Bowel Movements 1 General Appearance: Alert, Other (Disoriented) Lungs: Other (Bilateral crackles) Cardiovascular: Regular rate, Normal S1, Normal S2 Abdomen: Normal bowel sounds, Soft, No tenderness Extremities: Other (2+ edema bilaterally in the lower extremities) Medications Current Medications Medications Dose Ordered Sig/Taran Route Start Time Stop Time Status Last Admin Dose Admin Norepinephrine Bitartrate 250 ml @ 3.75 mls/hr Q24H IV 01/31/25 19:00 02/06/25 15:54 7.5 MLS/HR Ondansetron HCl 4 mg Q4HP PRN IV 01/31/25 19:30 Enoxaparin Sodium 40 mg DAILY SC 02/01/25 10:00 02/06/25 10:01 40 MG Acetaminophen 650 mg Q6HP PRN PO 01/31/25 19:30 02/04/25 08:36 650 MG Nitroglycerin 0.4 mg Q5MINP PRN SL 01/31/25 19:30 Carbidopa/Levodopa 2 tab HS PO 01/31/25 22:00 Albuterol 2.5 mg Q6HPRN PRN NEB 01/31/25 19:30 Acetaminophen/ Hydrocodone Bitart 1 tab Q6HPRN PRN PO 02/01/25 03:45 02/07/25 01:22 1 TAB Digoxin 125 mcg DAILY IV 02/02/25 10:00 02/06/25 10:00 125 MCG Diagnostic Test (Pha) 1 strip ACHS 02/03/25 17:00 02/06/25 21:45 1 STRIP Insulin Human Regular ACHS SC 02/03/25 17:00 Dextrose 50 ml UD PRN IV 02/03/25 16:45 Enteral Nutritional Formula 240 ml TIDWM PO 02/05/25 18:30 02/06/25 18:00 240 ML Levothyroxine Sodium 100 mcg QAM@0600 PO 02/08/25 06:00 UNV Magnesium Sulfate/ Dextrose 100 ml @ 100 mls/hr Q1HR IV 02/07/25 09:00 02/07/25 10:59 UNV Laboratory Results Laboratory Tests 02/07/25 04:20 Chemistry Test 02/07/25 04:20 Calcium Level 8.6 mg/dL (8.7-10.4) L Magnesium Level 1.8 mg/dL (1.6-2.6) Urinalysis Test 01/31/25 16:30 Urine Color Colorless (Yellow) Urine Clarity Turbid (Clear) H Urine pH 6.0 (5.0-9.0) Urine Specific [place] 1.015 (1.001-1.035) Urine Protein 1+ (Negative) H Urine Ketones Trace (Negative) Urine Blood 1+ /uL (Negative) H Urine Nitrite Negative (Negative) Urine Bilirubin Negative (Negative) Urine Urobilinogen Normal mg/dL (Negative) Urine Leukocyte Esterase 3+ /uL (Negative) Urine RBC 9 /hpf (0 - 4) Urine WBC Clumps Present /hpf (None Seen) Urine Microscopic WBC 416 /HPF (0-5) H Urine Squamous Epithelial Cells Few /hpf (<5) Urine Bacteria Few /hpf (None Seen) H Urine Hyaline Casts Few /lpf (0 - 2) Urine Mucus Few (None Seen) Urine Yeast (Budding) Moderate /hpf (None Seen) Urine Glucose Normal mg/dL (Normal) Microbiology Microbiology Date/Time Source Procedure Growth Status 02/03/25 00:50 Nose MRSA Screen - Final Complete 01/31/25 16:30 Voided Urine Urine Culture - Final Enterococcus faecium - VRE Presumptive Leidy albicans Complete 01/31/25 11:10 Blood Blood Culture - Final NO GROWTH AFTER 5 DAYS OF INCUBATION. Complete Assessment/Plan Assessment/Plan Acute metabolic encephalopathy Septic shock due to UTI UTI Recent sepsis with a wound infection due to Pseudomonas aeruginosa MDRO Morbid obesity Bed-bound Type 2 diabetes Acute kidney injury Left hydronephrosis Horseshoe kidney Status post ureteral stent Chronic anemia Hyponatremia Atrial fibrillation Heart failure with preserved ejection fraction Plan Broad-spectrum antibiotics: Levofloxacin and gentamicin Vasopressors as needed, norepinephrine drip Cardiology consult Lasix drip per Dr. Cifuentes Full code Discussed with the daughter at the bedside Advance directives discussed for 20 minute 02/03/2025: Continue IV antibiotics Vasopressors Lasix Central line to be done by emergency room physician Cardiology consultation Dr. Cifuentes Monitor closely 02/04/2025: Replace magnesium and potassium Continue IV antibiotics Infectious Disease consultation Vasopressors as needed Lasix drip Monitor closely The rest of the management will depend on the hospital course 02/05/25: IV antibiotics: Gentamicin and levofloxacin Taper Levophed off as tolerated Lasix Replace K+ and Mg 02/06/2025: Continue the current management Tapered off the Levophed as tolerated Continue Lasix Replace potassium magnesium as needed 02/07/2025: Taper off the Levophed drip as tolerated Downgrade to telemetry once she is off the Levophed Discontinue the gentamicin Replace magnesium and potassium as needed Discharge planning once she is off the Levophed drip Plan discussed with: Patient My Orders Orders - FALGUNI CM MD Procedure Category Date Status Time Magnesium Sulfate PHA 02/07/25 Logged 1gm/100ml 09:00 Potassium Effervesent PHA 02/07/25 Logged Tab (Klor-Con/Ef) 08:15 Date of Service: Feb 07, 2025 Billing Provider: FALGUNI CM MD Common Visit Codes: [id number] INP/OBS CARE(HIGH) FALGUNI CM MD Feb 07, 2025 08:24
[2025-02-07] MEDS: POTASSIUM EFFERVESENT TAB 25 MEQ PO ONE ×2 (10:43→11:02)
[2025-02-07] MEDS: MAGNESIUM SULFATE 1GM/100ML 100 ML IV SCH (10:44)
--- NOTE | 2025-02-07 13:46 | DVHPN2 ---
Consult Progress Note Date Seen: Feb 07, 2025 Subjective Patient reports: No new complaints Other Systems: Saw the patient at bedside, discussed with the primary team, primary RN and reviewed the chart. Patient is dehydrated with 3rd spacing still on lasix drip will consider slowing down in diuresis 1500 cc urine output in last 24 hours now progressed to tachycardia and low BP as hypovolemia continues. Back to baseline in terms of mental state, more alert and awake. Objective vital signs Vital Sign Date Time Temp Pulse Resp B/P (MAP) Pulse Ox O2 Delivery O2 Flow Rate FiO2 02/07/25 10:43 100 02/07/25 06:45 17 92/58 (69) 99 02/07/25 06:00 Room Air* 0 21 02/07/25 04:01 97.7 97.7 Total Intake and Output 02/06/25 02/06/25 02/07/25 15:00 23:00 07:00 Intake Total 83.25 ml 360.50 ml 424.75 ml Output Total 650 ml 650 ml Balance 83.25 ml -289.50 ml -225.25 ml Gen: 79-year-old female in mild distress, morbidly obese, overall 3rd spacing with anasarca and intravascularly pearl glue drier. Skin: Warm, dry, normal color and texture, no rash. HEENT: Normocephalic atraumatic, mucous membranes moist and pink. Neck: Cervical and supraclavicular nodes normal without enlargement, trachea is midline, thyroid gland is normal without masses. Pulmonary: Clear to auscultation and percussion bilaterally. Cardiac: Regular rate and rhythm. No murmur Abdomen: Soft, nontender, nondistended, bowel sounds present all 4 quadrants, no guarding, no rigidity, no organomegaly. Warm and dry, no rashes. Notable for serous oozing from sacral and buttock ulcers with some psoriatic component, scattered ecchymosis and blister on right upper arm, bilateral upper extremity ulcers, stage 12 ulcers on posterior thighs. Extremities: No cyanosis, clubbing, no edema Neuro: Cranial nerves II through XII grossly intact, normal affect and speech, no focal motor deficits. medications Current Medications Medications Dose Ordered Sig/Taran Route Start Time Stop Time Status Last Admin Dose Admin Norepinephrine Bitartrate 250 ml @ 3.75 mls/hr Q24H IV 01/31/25 19:00 02/06/25 15:54 7.5 MLS/HR Ondansetron HCl 4 mg Q4HP PRN IV 01/31/25 19:30 Enoxaparin Sodium 40 mg DAILY SC 02/01/25 10:00 02/07/25 10:42 40 MG Acetaminophen 650 mg Q6HP PRN PO 01/31/25 19:30 02/07/25 10:56 650 MG Nitroglycerin 0.4 mg Q5MINP PRN SL 01/31/25 19:30 Carbidopa/Levodopa 2 tab HS PO 01/31/25 22:00 Albuterol 2.5 mg Q6HPRN PRN NEB 01/31/25 19:30 Acetaminophen/ Hydrocodone Bitart 1 tab Q6HPRN PRN PO 02/01/25 03:45 02/07/25 01:22 1 TAB Digoxin 125 mcg DAILY IV 02/02/25 10:00 02/07/25 10:43 125 MCG Diagnostic Test (Pha) 1 strip ACHS 02/03/25 17:00 02/07/25 11:07 1 STRIP Insulin Human Regular ACHS SC 02/03/25 17:00 Dextrose 50 ml UD PRN IV 02/03/25 16:45 Enteral Nutritional Formula 240 ml TIDWM PO 02/05/25 18:30 02/06/25 18:00 240 ML Levothyroxine Sodium 100 mcg QAM@0600 PO 02/08/25 06:00 laboratory and microbiology Laboratory Tests 02/07/25 04:20 Test 02/07/25 04:20 Range/Units Serum Glucose 89 74-106 mg/dL Problem List/Assessment/Plan Problem List/Assessment/Plan TANESHA Marie 79-year-old female with past medical history includes congestive heart failure, chronic kidney disease, diabetes mellitus, hypertension, hypothyroidism, anemia, atrial fibrillation and tonsillectomy presents with altered mental status following a recent onet progressive lethargy following a recent hospitalization for sepsis. 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 Presently, she has sacral and buttock ulcers with serous drainage, suggestive of pressure injury and psoriatic flare, along with stage 12 ulcers on her posterior thighs and ecchymosis with blistering on both upper extremities. She required Levophed for hypotension in the ED and was started on levofloxacin due to allergies to penicillin and ceftriaxone. Labs show mild lactic acidosis, significant pyuria, and VRE with presumptive *Leidy albicans* in the urine. Imaging reveals cerebral volume loss on head CT and a chest X-ray showing cardiomegaly, left lower lobe opacity, and prominent pulmonary vasculature. She lives with family, who deny any substance abuse. Assessment: #Acute complicated urinary tract infection, with Enterococcus faecium VRE and presumptive Leidy albicans on gentamicin #Sacral and buttock ulcers, including possible psoriatic involvement , negative blood culture from 01/31/2025 #Infected sacral ulcer #Septic shock, possibly due to more than one source of infection #Poor oral hygiene with dental caries, aspiration risk #Thrombocytopenia mild, limiting the use of linezolid #History of MDR Pseudomonas aeruginosa and ESBL E coli UTI history #Known allergy to ceftriaxone, morphine, penicillins and sulfa antibiotics #Recent sepsis related hospitalization in December 2024 #Past Surgical History of Tonsillectomy, negative for nasal MRSA colonization #Previous history of MRSA nasal colonization, status post decolonized #History of recurrent ESBL UTI #H/o Staphylococcus hominis, Staphylococcus auricularis, Staphylococcus epidermidis and ESBL E coli bacteremia in 2021 and 2019 respectively #intertrigo on topical nystatin antifungal powder - #Toxic versus metabolic encephalopathy secondary to sepsis #Diabetes mellitus # psoriasis #Hypovolemic hyponatremia #Yet to rule out digoxin toxicity #Anemia of chronic disease mixed with iron-deficiency anemia #Xgvt-ty-zzhtzorn protein energy malnutrition #Grade 3 obesity, chronically bed-bound #Congenital, horseshoe shaped kidney #Left hydronephrosis status post urethral stent #Heart failure with preserved ejection fraction #Acute kidney injury secondary to VMN #Chronic kidney disease (CKD) #H/o essential Hypertension #Hypothyroidism on levothyroxine #Hypovitaminosis D #Atrial fibrillation on Eliquis #Secondary hypercoagulable state #History of slow GI bleed #Parkinsonism #Restless leg syndrome #Osteoarthritis with or without component of psoriatic arthritis Plan: # Please hold further IV Lasix drip cautiously. # S/p 5 days of Levofloxacin and gentamicin. Discontinued and not noted any further signs of infection. Will closely monitor. No need of antibiotics today. # The patient seems intravascularly dry with 3rd spacing, high protein diet with increasing albumin with replenishing the intravascular volume might help. # Avoid overtreatment of urine culture organisms; current findings likely represent colonization. # Dietary/ nutrition consult with nutritional supplement with high-protein diet. # Further wound assessment and management for sacral and posterior thigh ulcers, including wound care consult and assessment for concomitant psoriatic component. # This geriatric patient exhibits multiple components of frailty and is being managed with supportive care, including maintaining a mean arterial pressure (MAP) above 65 mmHg with as-needed Levophed infusion, treatment for hypothermia, intensive care-level monitoring, and close tracking of intake and output with correction of electrolyte imbalances. Discussed with Dr. Adler. Infectious Disease we will continue to follow up the patient. Plan discussed with: Patient, Other Dietary Evaluation Review Comments: 1. CCHO-60 2 gNa diet w 45g proein restriction 2. Try Devin for wound healing 3. Wt management 4. F/U with nephrology and updated lab values Expected Outcomes/Goals: Less uremic syndrome, controlled DM WALTER ROBERTS RESIDENT Feb 07, 2025 13:46 ION ROMERO RESIDENT Feb 07, 2025 18:45
--- NOTE | 2025-02-07 13:51 | DVHPN2 ---
Progress Note - Dictate Date Seen: Feb 07, 2025 Medical Necessity Reason Pt with a Central, PICC or Fol: Yes The following are medically ne: Hook Catheter Subjective SHE BECAME UNRESPONSIVE BLOOD SUGAR 166 SHE WAS MILDLY HYPOTENSIVE HAD LEFT SIGHT ARM MOVEMENT LASTED ABOUT 10 MINUTES TOTAL/ NO CLEAR POST ICTAL PERIOD PRESENTATION CONSISTENT WITH METABOLIC SYNDROME/ INFECTION ESPECIALLY WITH HER RECENT ADMISSION FOR SEPSIS/ BACTEREMIA RECENT HX OF HYPOTENSION POSITIVE BLOOD CX STAPH PRODUCTIVE COUGH HYPOXIA SEVERE ANEMIA HX OF BLEEDING DIATHESIS NOW BEING TRANSFUSE PMH; HEMATURIA HX OF ORGANIC HD S/P TAVR HX OF AV STENOSIS HTN HFpEF DIASTOLIC DYSFUNCTION AFIB ON SOTALOL HYPERCOAGULABLE STATE HX OF DVT MORBID OBESITY 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 ANEMIA HYPONATREMIA DECUB STAGE II MULTIPLE ORGANISM PSEUDOMONAS vital signs Vital Sign Date Time Temp Pulse Resp B/P (MAP) Pulse Ox O2 Delivery O2 Flow Rate FiO2 02/07/25 10:43 100 02/07/25 06:45 17 92/58 (69) 99 02/07/25 06:00 Room Air* 0 21 02/07/25 04:01 97.7 97.7 Total Intake and Output 02/06/25 02/06/25 02/07/25 14:59 22:59 06:59 Intake Total 90.75 ml 360.50 ml 421.00 ml Output Total 650 ml 650 ml Balance 90.75 ml -289.50 ml -229.00 ml medications Current Medications Medications Dose Ordered Sig/Taran Route Start Time Stop Time Status Last Admin Dose Admin Norepinephrine Bitartrate 250 ml @ 3.75 mls/hr Q24H IV 01/31/25 19:00 02/06/25 15:54 7.5 MLS/HR Ondansetron HCl 4 mg Q4HP PRN IV 01/31/25 19:30 Enoxaparin Sodium 40 mg DAILY SC 02/01/25 10:00 02/07/25 10:42 40 MG Acetaminophen 650 mg Q6HP PRN PO 01/31/25 19:30 02/07/25 10:56 650 MG Nitroglycerin 0.4 mg Q5MINP PRN SL 01/31/25 19:30 Carbidopa/Levodopa 2 tab HS PO 01/31/25 22:00 Albuterol 2.5 mg Q6HPRN PRN NEB 01/31/25 19:30 Acetaminophen/ Hydrocodone Bitart 1 tab Q6HPRN PRN PO 02/01/25 03:45 02/07/25 01:22 1 TAB Digoxin 125 mcg DAILY IV 02/02/25 10:00 02/07/25 10:43 125 MCG Diagnostic Test (Pha) 1 strip ACHS 02/03/25 17:00 02/07/25 11:07 1 STRIP Insulin Human Regular ACHS SC 02/03/25 17:00 Dextrose 50 ml UD PRN IV 02/03/25 16:45 Enteral Nutritional Formula 240 ml TIDWM PO 02/05/25 18:30 02/06/25 18:00 240 ML Levothyroxine Sodium 100 mcg QAM@0600 PO 02/08/25 06:00 laboratory and microbiology Laboratory Tests 02/07/25 04:20 Test 02/07/25 04:20 Range/Units Serum Glucose 89 74-106 mg/dL Problem List SHE BECAME UNRESPONSIVE BLOOD SUGAR 166 HYPOTENSIVE HAD LEFT SIGHT ARM MOVEMENT LASTED ABOUT 10 MINUTES TOTAL/ NO CLEAR POST ICTAL PERIOD PRESENTATION CONSISTENT WITH METABOLIC SYNDROME/ INFECTION ESPECIALLY WITH HER RECENT ADMISSION FOR SEPSIS/ BACTEREMIA RECENT HX OF HYPOTENSION POSITIVE BLOOD CX STAPH PRODUCTIVE COUGH HYPOXIA SEVERE ANEMIA HX OF BLEEDING DIATHESIS NOW BEING TRANSFUSE PMH; HEMATURIA HX OF ORGANIC HD S/P TAVR HX OF AV STENOSIS HTN HFpEF DIASTOLIC DYSFUNCTION AFIB ON SOTALOL HYPERCOAGULABLE STATE HX OF DVT MORBID OBESITY 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 ANEMIA HYPONATREMIA PSEUDOMONAS INFECTION Assessment/Plan ABX PRESSORS WOUND CARE TRIPLE LUMEN INSERTION DC [facility] LABS START DOPAMINE RENAL PERFUSION STOOL OCCULT BLOOD SECONDARY TO HIGH BUN / CR RATIO WILL RESTART LASIX IN AM Dietary Evaluation Review Comments: 1. CCHO-60 2 gNa diet w 45g proein restriction 2. Try Devin for wound healing 3. Wt management 4. F/U with nephrology and updated lab values Expected Outcomes/Goals: Less uremic syndrome, controlled DM Plan discussed with: Patient, Daughter Critical Care Time(min): 35 MONTRELL ARNKIN MD Feb 07, 2025 13:51
[2025-02-07] MEDS: POTASSIUM CHL 20MEQ/100ML 100 ML IV SCH (18:30)
[2025-02-07] MEDS: DOPamine 1600MCG/ML D5W 250 ML IV SCH (18:38)
[2025-02-08] VITALS (104 sets, daily range): BP systolic 44–189; BP diastolic 15–159; PULSE 77–130; RESP 8–24; TEMP 97–97.9; O2SAT 93–100
[2025-02-08 05:43] LABS: Potassium 3.8 mmol/L (3.5-5.1)
[2025-02-08 05:44] LABS: Anion Gap 10 (5-15); Calcium 9.1 mg/dL (8.7-10.4); Carbon Dioxide 23 mmol/L (20-31)
[2025-02-08 05:49] LABS: BUN/Creatinine Ratio 56.1 (10.0-20.0); Hematocrit 29.3 % (36.0-46.0); Hemoglobin 9.8 g/dL (12.2-16.2); Mean Corpuscular Hemoglobin 27.6 pg (28.0-32.0); Mean Corpuscular Volume 82.0 fL (80.0-100.0)
[2025-02-08] MEDS: LEVOTHYROXINE SODIUM 50 MCG TAB PO SCH (05:50)
[2025-02-08 06:05] LABS: Blood Urea Nitrogen 60 mg/dL (9-23); Chloride 91 mmol/L (98-107); Glucose 117 mg/dL (74-106); Sodium 124 mmol/L (136-145)
[2025-02-08 06:24] LABS: Total Cells Counted 100.0 (100)
--- NOTE | 2025-02-08 12:21 | DVHPN2 ---
Progress Note - Dictate Date Seen: Feb 08, 2025 Medical Necessity Reason Pt with a Central, PICC or Fol: Yes The following are medically ne: Hook Catheter Subjective SHE BECAME UNRESPONSIVE BLOOD SUGAR 166 SHE WAS MILDLY HYPOTENSIVE HAD LEFT SIGHT ARM MOVEMENT LASTED ABOUT 10 MINUTES TOTAL/ NO CLEAR POST ICTAL PERIOD PRESENTATION CONSISTENT WITH METABOLIC SYNDROME/ INFECTION ESPECIALLY WITH HER RECENT ADMISSION FOR SEPSIS/ BACTEREMIA RECENT HX OF HYPOTENSION POSITIVE BLOOD CX STAPH PRODUCTIVE COUGH HYPOXIA SEVERE ANEMIA HX OF BLEEDING DIATHESIS NOW BEING TRANSFUSE PMH; HEMATURIA HX OF ORGANIC HD S/P TAVR HX OF AV STENOSIS HTN HFpEF DIASTOLIC DYSFUNCTION AFIB ON SOTALOL HYPERCOAGULABLE STATE HX OF DVT MORBID OBESITY 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 ANEMIA HYPONATREMIA DECUB STAGE II MULTIPLE ORGANISM PSEUDOMONAS vital signs Vital Sign Date Time Temp Pulse Resp B/P (MAP) Pulse Ox O2 Delivery O2 Flow Rate FiO2 02/08/25 11:07 95/59 02/08/25 10:15 89 12 99 02/08/25 10:00 Room Air 0.0 02/08/25 10:00 21 02/08/25 08:01 97.9 97.9 Total Intake and Output 02/07/25 02/07/25 02/08/25 15:00 23:00 07:00 Intake Total 290.00 ml 571.739 ml 493.054 ml Output Total 2500 ml 850 ml Balance 290.00 ml -1928.261 ml -356.946 ml medications Current Medications Medications Dose Ordered Sig/Taran Route Start Time Stop Time Status Last Admin Dose Admin Norepinephrine Bitartrate 250 ml @ 3.75 mls/hr Q24H IV 01/31/25 19:00 02/08/25 11:07 22.5 MLS/HR Ondansetron HCl 4 mg Q4HP PRN IV 01/31/25 19:30 Enoxaparin Sodium 40 mg DAILY SC 02/01/25 10:00 02/08/25 09:14 40 MG Acetaminophen 650 mg Q6HP PRN PO 01/31/25 19:30 02/07/25 10:56 650 MG Nitroglycerin 0.4 mg Q5MINP PRN SL 01/31/25 19:30 Carbidopa/Levodopa 2 tab HS PO 01/31/25 22:00 Albuterol 2.5 mg Q6HPRN PRN NEB 01/31/25 19:30 Acetaminophen/ Hydrocodone Bitart 1 tab Q6HPRN PRN PO 02/01/25 03:45 02/07/25 23:00 1 TAB Digoxin 125 mcg DAILY IV 02/02/25 10:00 02/08/25 09:14 125 MCG Diagnostic Test (Pha) 1 strip ACHS 02/03/25 17:00 02/08/25 11:16 1 STRIP Insulin Human Regular ACHS SC 02/03/25 17:00 Dextrose 50 ml UD PRN IV 02/03/25 16:45 Enteral Nutritional Formula 240 ml TIDWM PO 02/05/25 18:30 02/08/25 08:20 240 ML Levothyroxine Sodium 100 mcg QAM@0600 PO 02/08/25 06:00 02/08/25 05:50 100 MCG Dopamine HCl/ Dextrose 250 ml @ 8.663 mls/ hr Q24H IV 02/07/25 14:00 02/07/25 19:58 8.663 MLS/HR laboratory and microbiology Laboratory Tests 02/08/25 04:40 Test 02/08/25 04:40 Range/Units Serum Glucose 117 H 74-106 mg/dL Problem List SHE BECAME UNRESPONSIVE BLOOD SUGAR 166 HYPOTENSIVE HAD LEFT SIGHT ARM MOVEMENT LASTED ABOUT 10 MINUTES TOTAL/ NO CLEAR POST ICTAL PERIOD PRESENTATION CONSISTENT WITH METABOLIC SYNDROME/ INFECTION ESPECIALLY WITH HER RECENT ADMISSION FOR SEPSIS/ BACTEREMIA RECENT HX OF HYPOTENSION POSITIVE BLOOD CX STAPH PRODUCTIVE COUGH HYPOXIA SEVERE ANEMIA HX OF BLEEDING DIATHESIS NOW BEING TRANSFUSE PMH; HEMATURIA HX OF ORGANIC HD S/P TAVR HX OF AV STENOSIS HTN HFpEF DIASTOLIC DYSFUNCTION AFIB ON SOTALOL HYPERCOAGULABLE STATE HX OF DVT MORBID OBESITY 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 ANEMIA HYPONATREMIA PSEUDOMONAS INFECTION Assessment/Plan ABX PRESSORS WOUND CARE TRIPLE LUMEN INSERTION DC LASIX LABS START DOPAMINE RENAL PERFUSION STOOL OCCULT BLOOD SECONDARY TO HIGH BUN / CR RATIO WILL RESTART LASIX IN AM 3% saline resume gent and meropanam Dietary Evaluation Review Comments: 1. CCHO-60 2 gNa diet w 45g proein restriction 2. Try Devin for wound healing 3. Wt management 4. F/U with nephrology and updated lab values Expected Outcomes/Goals: Less uremic syndrome, controlled DM Plan discussed with: Patient, Spouse Critical Care Time(min): 35 ARUNASALAM,MONTRELL MD Feb 08, 2025 12:21
--- NOTE | 2025-02-08 12:28 | DVHPN2 ---
Subjective Alert and oriented She is on Levophed and dopamine drip White count is up to 12.7 today Hemoglobin 9.8 platelets 167 Sodium 124 Reviewed: Care Plan, H&P, Labs, Medications, Previous Orders, Radiology Changes from previous H/P or p: Changes Objective Vitals Vital Signs Date Time Temp Pulse Resp B/P (MAP) Pulse Ox O2 Delivery O2 Flow Rate FiO2 02/08/25 11:07 95/59 02/08/25 10:15 89 12 99 02/08/25 10:00 Room Air 0.0 02/08/25 10:00 21 02/08/25 08:01 97.9 97.9 Intake/Output Intake and Output 02/08/25 07:00 Intake Total 1354.793 ml Output Total 3350 ml Balance -1995.207 ml Intake Oral 780 ml IV Total 574.793 ml Output Urine Total 3350 ml # Bowel Movements 1 General Appearance: Alert, Other (Disoriented) Lungs: Other (Bilateral crackles) Cardiovascular: Regular rate, Normal S1, Normal S2 Abdomen: Normal bowel sounds, Soft, No tenderness Extremities: Other (2+ edema bilaterally in the lower extremities) Medications Current Medications Medications Dose Ordered Sig/Traan Route Start Time Stop Time Status Last Admin Dose Admin Norepinephrine Bitartrate 250 ml @ 3.75 mls/hr Q24H IV 01/31/25 19:00 02/08/25 11:07 22.5 MLS/HR Ondansetron HCl 4 mg Q4HP PRN IV 01/31/25 19:30 Enoxaparin Sodium 40 mg DAILY SC 02/01/25 10:00 02/08/25 09:14 40 MG Acetaminophen 650 mg Q6HP PRN PO 01/31/25 19:30 02/07/25 10:56 650 MG Nitroglycerin 0.4 mg Q5MINP PRN SL 01/31/25 19:30 Carbidopa/Levodopa 2 tab HS PO 01/31/25 22:00 Albuterol 2.5 mg Q6HPRN PRN NEB 01/31/25 19:30 Acetaminophen/ Hydrocodone Bitart 1 tab Q6HPRN PRN PO 02/01/25 03:45 02/07/25 23:00 1 TAB Digoxin 125 mcg DAILY IV 02/02/25 10:00 02/08/25 09:14 125 MCG Diagnostic Test (Pha) 1 strip ACHS 02/03/25 17:00 02/08/25 11:16 1 STRIP Insulin Human Regular ACHS SC 02/03/25 17:00 Dextrose 50 ml UD PRN IV 02/03/25 16:45 Enteral Nutritional Formula 240 ml TIDWM PO 02/05/25 18:30 02/08/25 08:20 240 ML Levothyroxine Sodium 100 mcg QAM@0600 PO 02/08/25 06:00 02/08/25 05:50 100 MCG Dopamine HCl/ Dextrose 250 ml @ 8.663 mls/ hr Q24H IV 02/07/25 14:00 02/07/25 19:58 8.663 MLS/HR Patient Own Medication 160 mg DAILY IV 02/09/25 10:00 UNV Patient Own Medication 1 g Q8H IV 02/08/25 12:30 UNV Laboratory Results Laboratory Tests 02/08/25 04:40 Chemistry Test 02/08/25 04:40 Calcium Level 9.1 mg/dL (8.7-10.4) Urinalysis Test 01/31/25 16:30 Urine Color Colorless (Yellow) Urine Clarity Turbid (Clear) H Urine pH 6.0 (5.0-9.0) Urine Specific [place] 1.015 (1.001-1.035) Urine Protein 1+ (Negative) H Urine Ketones Trace (Negative) Urine Blood 1+ /uL (Negative) H Urine Nitrite Negative (Negative) Urine Bilirubin Negative (Negative) Urine Urobilinogen Normal mg/dL (Negative) Urine Leukocyte Esterase 3+ /uL (Negative) Urine RBC 9 /hpf (0 - 4) Urine WBC Clumps Present /hpf (None Seen) Urine Microscopic WBC 416 /HPF (0-5) H Urine Squamous Epithelial Cells Few /hpf (<5) Urine Bacteria Few /hpf (None Seen) H Urine Hyaline Casts Few /lpf (0 - 2) Urine Mucus Few (None Seen) Urine Yeast (Budding) Moderate /hpf (None Seen) Urine Glucose Normal mg/dL (Normal) Microbiology Microbiology Date/Time Source Procedure Growth Status 02/03/25 00:50 Nose MRSA Screen - Final Complete 01/31/25 16:30 Voided Urine Urine Culture - Final Enterococcus faecium - VRE Presumptive Leidy albicans Complete 01/31/25 11:10 Blood Blood Culture - Final NO GROWTH AFTER 5 DAYS OF INCUBATION. Complete Assessment/Plan Assessment/Plan Acute metabolic encephalopathy Septic shock due to UTI UTI Recent sepsis with a wound infection due to Pseudomonas aeruginosa MDRO Morbid obesity Bed-bound Type 2 diabetes Acute kidney injury Left hydronephrosis Horseshoe kidney Status post ureteral stent Chronic anemia Hyponatremia Atrial fibrillation Heart failure with preserved ejection fraction Plan Broad-spectrum antibiotics: Levofloxacin and gentamicin Vasopressors as needed, norepinephrine drip Cardiology consult Lasix drip per Dr. Cifuentes Full code Discussed with the daughter at the bedside Advance directives discussed for 20 minute 02/03/2025: Continue IV antibiotics Vasopressors Lasix Central line to be done by emergency room physician Cardiology consultation Dr. Cifuentes Monitor closely 02/04/2025: Replace magnesium and potassium Continue IV antibiotics Infectious Disease consultation Vasopressors as needed Lasix drip Monitor closely The rest of the management will depend on the hospital course 02/05/25: IV antibiotics: Gentamicin and levofloxacin Taper Levophed off as tolerated Lasix Replace K+ and Mg 02/06/2025: Continue the current management Tapered off the Levophed as tolerated Continue Lasix Replace potassium magnesium as needed 02/07/2025: Taper off the Levophed drip as tolerated Downgrade to telemetry once she is off the Levophed Discontinue the gentamicin Replace magnesium and potassium as needed Discharge planning once she is off the Levophed drip 02/08/2025: Levophed and dopamine drip Replace potassium and magnesium as needed Restarted antibiotics per Dr. Cifuentes Monitor closely Plan discussed with: Patient, Other My Orders Orders - FALGUNI CM MD Procedure Category Date Status Time Urine Bacterial LIA 02/08/25 In Process Culture 11:40 Urinalysis LAB 02/08/25 Verified 12:25 Urine Bacterial LIA 02/08/25 Verified Culture 12:25 Date of Service: Feb 08, 2025 Billing Provider: FALGUNI CM MD Common Visit Codes: [id number] INP/OBS CARE(HIGH) FALGUNI CM MD Feb 08, 2025 12:28
[2025-02-08] MEDS ORDERED: [UNRECOGNIZED DRUG - OTHER] IV SCH (12:30)
[2025-02-08 12:45] LABS: Urine Budding Yeast LOADED /hpf (None Seen); Urine Protein, UAD 1+ (Negative); Urine WBC Clumps PRESENT /hpf (None Seen)
[2025-02-08 13:33] LABS: Alkaline Phosphatase 82 U/L (46-116); Anion Gap 9 (5-15); BUN/Creatinine Ratio 53.6 (10.0-20.0); Bilirubin, Total 0.3 mg/dL (0.2-1.0); Calcium 9.2 mg/dL (8.7-10.4); Carbon Dioxide 24 mmol/L (20-31); Potassium 4.2 mmol/L (3.5-5.1)
[2025-02-08 13:35] LABS: Alanine Aminotransferase 9 U/L (7-40); Albumin 3.2 g/dL (3.2-4.8); Blood Urea Nitrogen 59 mg/dL (9-23); Chloride 91 mmol/L (98-107); Glucose 110 mg/dL (74-106); Sodium 124 mmol/L (136-145); Total Protein 5.4 g/dL (5.7-8.2)
--- NOTE | 2025-02-08 13:35 | DVH ---
INDICATION: PNA TECHNIQUE: XY CHEST PORTABLE COMPARISON: None COMPARISON: XY CHEST PORTABLE on DOS: 01/31/25, XY CHEST XRAY 1 VIEW on DOS: 01/16/25, XY CHEST PORTABL E on DOS: 01/04/25, XY CHEST PORTABLE on DOS: 12/29/24, XY CHEST PORTABLE on DOS: 04/28/24, XY CHEST PORT ABLE on DOS: 01/31/25 FINDINGS: Left subclavian mirna catheter tip projecting over the SVC. The cardiac silhouette is enlarged. The lungs demonstrate left lower lobe airspace opacity The pulmon toro vasculature is prominent. Small to moderate left pleural effusion. Aortic valvular prosthesis. T here is no pneumothorax. IMPRESSION: As above
[2025-02-08] MEDS ORDERED: MEROPENEM 1GM IVPB 50 ML IV SCH (14:00)
[2025-02-08] MEDS: SODIUM CHL 3% 500 ML IV ONE (14:04)
[2025-02-08] MEDS: CeftoloZANE-TAZOB 3 GM in D5W 5% 100 ML IV SCH (15:38)
--- NOTE | 2025-02-08 17:22 | DVHPN2 ---
Consult Progress Note Date Seen: Feb 08, 2025 Subjective Patient reports: No new complaints Other Systems: Off of pressors and soft bp but lower suspicion of active infection. Was started gentamicin and meropenem. Workup in progress. Off of diuretics. Still seems intravascularly hypovolumic. 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 Skin: Warm, dry, normal color and texture, no rash. HEENT: Normocephalic atraumatic, mucous membranes moist and pink. Neck: Cervical and supraclavicular nodes normal without enlargement, trachea is midline, thyroid gland is normal without masses. Pulmonary: Clear to auscultation and percussion bilaterally. Cardiac: Regular rate and rhythm. No murmur Abdomen: Soft, nontender, nondistended, bowel sounds present all 4 quadrants, no guarding, no rigidity, no organomegaly. Warm and dry, no rashes. Notable for serous oozing from sacral and buttock ulcers with some psoriatic component, scattered ecchymosis and blister on right upper arm, bilateral upper extremity ulcers, stage 12 ulcers on posterior thighs. Extremities: No cyanosis, clubbing, no edema Neuro: Cranial nerves II through XII grossly intact, normal affect and speech, no focal motor deficits. No signs of active infection noted medications Current Medications Medications Dose Ordered Sig/Taran Route Start Time Stop Time Status Last Admin Dose Admin Norepinephrine Bitartrate 250 ml @ 3.75 mls/hr Q24H IV 01/31/25 19:00 02/08/25 11:07 22.5 MLS/HR Ondansetron HCl 4 mg Q4HP PRN IV 01/31/25 19:30 Enoxaparin Sodium 40 mg DAILY SC 02/01/25 10:00 02/08/25 09:14 40 MG Acetaminophen 650 mg Q6HP PRN PO 01/31/25 19:30 02/07/25 10:56 650 MG Nitroglycerin 0.4 mg Q5MINP PRN SL 01/31/25 19:30 Carbidopa/Levodopa 2 tab HS PO 01/31/25 22:00 Albuterol 2.5 mg Q6HPRN PRN NEB 01/31/25 19:30 Acetaminophen/ Hydrocodone Bitart 1 tab Q6HPRN PRN PO 02/01/25 03:45 02/07/25 23:00 1 TAB Digoxin 125 mcg DAILY IV 02/02/25 10:00 02/08/25 09:14 125 MCG Diagnostic Test (Pha) 1 strip ACHS 02/03/25 17:00 02/08/25 16:45 1 STRIP Insulin Human Regular ACHS SC 02/03/25 17:00 Dextrose 50 ml UD PRN IV 02/03/25 16:45 Enteral Nutritional Formula 240 ml TIDWM PO 02/05/25 18:30 02/08/25 12:00 240 ML Levothyroxine Sodium 100 mcg QAM@0600 PO 02/08/25 06:00 02/08/25 05:50 100 MCG Dopamine HCl/ Dextrose 250 ml @ 8.663 mls/ hr Q24H IV 02/07/25 14:00 02/07/25 19:58 8.663 MLS/HR Patient Own Medication 160 mg DAILY IV 02/09/25 10:00 UNV Patient Own Medication 1 g Q8H IV 02/08/25 12:30 UNV Ceftolozane/ Tazobactam 3 gm/ Dextrose 100 ml @ 100 mls/hr Q8HR IV 02/08/25 14:00 02/08/25 15:38 100 MLS/HR laboratory and microbiology Laboratory Tests 02/08/25 12:52 02/08/25 04:40 Test 02/08/25 12:52 Range/Units Serum Glucose 110 H 74-106 mg/dL Problem List/Assessment/Plan Problem List/Assessment/Plan Ms. FONSECATANESHA 79-year-old female with past medical history includes congestive heart failure, chronic kidney disease, diabetes mellitus, hypertension, hypothyroidism, anemia, atrial fibrillation and tonsillectomy presents with altered mental status following a recent onet progressive lethargy following a recent hospitalization for sepsis. 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 Presently, she has sacral and buttock ulcers with serous drainage, suggestive of pressure injury and psoriatic flare, along with stage 12 ulcers on her posterior thighs and ecchymosis with blistering on both upper extremities. She required Levophed for hypotension in the ED and was started on levofloxacin due to allergies to penicillin and ceftriaxone. Labs show mild lactic acidosis, significant pyuria, and VRE with presumptive *Leidy albicans* in the urine. Imaging reveals cerebral volume loss on head CT and a chest X-ray showing cardiomegaly, left lower lobe opacity, and prominent pulmonary vasculature. She lives with family, who deny any substance abuse. Assessment: #Acute complicated urinary tract infection, with Enterococcus faecium VRE and presumptive Leidy albicans on gentamicin #Sacral and buttock ulcers, including possible psoriatic involvement , negative blood culture from 01/31/2025 #Infected sacral ulcer #Septic shock, possibly due to more than one source of infection #Poor oral hygiene with dental caries, aspiration risk #Thrombocytopenia mild, limiting the use of linezolid #History of MDR Pseudomonas aeruginosa and ESBL E coli UTI history #Known allergy to ceftriaxone, morphine, penicillins and sulfa antibiotics #Recent sepsis related hospitalization in December 2024 #Past Surgical History of Tonsillectomy, negative for nasal MRSA colonization #Previous history of MRSA nasal colonization, status post decolonized #History of recurrent ESBL UTI #H/o Staphylococcus hominis, Staphylococcus auricularis, Staphylococcus epidermidis and ESBL E coli bacteremia in 2021 and 2018 respectively #intertrigo on topical nystatin antifungal powder - #Toxic versus metabolic encephalopathy secondary to sepsis #Diabetes mellitus # psoriasis #Hypovolemic hyponatremia #Yet to rule out digoxin toxicity #Anemia of chronic disease mixed with iron-deficiency anemia #[id number] protein energy malnutrition #Grade 3 obesity, chronically bed-bound #Congenital, horseshoe shaped kidney #Left hydronephrosis status post urethral stent #Heart failure with preserved ejection fraction #Acute kidney injury secondary to VMN #Chronic kidney disease (CKD) #H/o essential Hypertension #Hypothyroidism on levothyroxine #Hypovitaminosis D #Atrial fibrillation on Eliquis #Secondary hypercoagulable state #History of slow GI bleed #Parkinsonism #Restless leg syndrome #Osteoarthritis with or without component of psoriatic arthritis Plan: # Please change the Hook's catheter and get a urine midstream sample as sample from the Hook's we will most likely be colonized by now. # Please hold further IV Lasix drip cautiously, rehydrate along with high- protein diet for oncotic pressure. # No need of gentamicin and meropenem at this time, changed to Zybrexa, continue for now, blood culture, sputum culture, urine culture to continue we will highly consider a CT abdomen pelvis with and without contrast to rule out any source of infection, if all workup negative then safely can consider holding all antibiotics and monitor clinically. # Avoid overtreatment of urine culture organisms; current findings likely represent colonization. # Further wound assessment and management for sacral and posterior thigh ulcers, including wound care consult and assessment for concomitant psoriatic component. # This geriatric patient exhibits multiple components of frailty and is being managed with supportive care, including maintaining a mean arterial pressure (MAP) above 65 mmHg with as-needed Levophed infusion, treatment for hypothermia, intensive care-level monitoring, and close tracking of intake and output with correction of electrolyte imbalances. Discussed with Dr. Adler. Infectious Disease we will continue to follow up the patient. Plan discussed with: Patient, Other (primary team. ) Dietary Evaluation Review Comments: 1. CCHO-60 2 gNa diet w 45g proein restriction 2. Try Devin for wound healing 3. Wt management 4. F/U with nephrology and updated lab values Expected Outcomes/Goals: Less uremic syndrome, controlled DM ION ROMERO RESIDENT Feb 08, 2025 17:22
[2025-02-09] VITALS (118 sets, daily range): BP systolic 46–150; BP diastolic 18–122; PULSE 80–121; RESP 8–26; TEMP 96.1–97.4; O2SAT 83–100
[2025-02-09 05:40] LABS: Hematocrit 29.6 % (36.0-46.0); Hemoglobin 9.9 g/dL (12.2-16.2); Mean Corpuscular Hemoglobin 27.5 pg (28.0-32.0); Mean Corpuscular Volume 82.4 fL (80.0-100.0)
[2025-02-09 06:05] LABS: Alkaline Phosphatase 84 U/L (46-116); Anion Gap 8 (5-15); Calcium 9.1 mg/dL (8.7-10.4); Carbon Dioxide 24 mmol/L (20-31); Magnesium 2.0 mg/dL (1.6-2.6); Potassium 4.1 mmol/L (3.5-5.1)
[2025-02-09 06:07] LABS: Alanine Aminotransferase < 9 U/L (7-40); Albumin 3.1 g/dL (3.2-4.8); Bilirubin, Total 0.3 mg/dL (0.2-1.0); Chloride 96 mmol/L (98-107); Glucose 117 mg/dL (74-106); Sodium 128 mmol/L (136-145); Total Protein 5.3 g/dL (5.7-8.2)
[2025-02-09 06:19] LABS: BUN/Creatinine Ratio 66.7 (10.0-20.0)
[2025-02-09 06:21] LABS: Blood Urea Nitrogen 70 mg/dL (9-23)
[2025-02-09 06:31] LABS: Nucleated Red Blood Cells % 1.0 %; Total Cells Counted 100.0 (100)
[2025-02-09] MEDS: ALBUTEROL SULF 2.5 MG/0.5ML(0.5%) NEB SOLN NEB PRN (08:23)
[2025-02-09] MEDS ORDERED: GENTAMICIN SULFATE 160 MG in D5W 5% 100 ML IV ONE (10:00)
[2025-02-09] MEDS ORDERED: PATIENTS OWN MEDICATION (GENTAMICIN 160 MG) IV SCH (10:00)
--- NOTE | 2025-02-09 11:29 | DVHPN2 ---
Subjective No new complaints She is still on Levophed and dopamine drips Reviewed: Care Plan, H&P, Labs, Medications, Previous Orders, Radiology Changes from previous H/P or p: Changes Objective Vitals Vital Signs Date Time Temp Pulse Resp B/P (MAP) Pulse Ox O2 Delivery O2 Flow Rate FiO2 02/09/25 10:00 96 Room Air* 0 21 02/09/25 10:00 13 02/09/25 10:00 90 02/09/25 10:00 107/78 (88) 02/09/25 08:16 96.1 96.1 Intake/Output Intake and Output 02/09/25 07:00 Intake Total 2156.662 ml Output Total 450 ml Balance 1706.662 ml Intake Oral 640 ml IV Total 1516.662 ml Output Urine Total 450 ml # Bowel Movements 1 General Appearance: Alert, Other (Disoriented) Lungs: Other (Bilateral crackles) Cardiovascular: Regular rate, Normal S1, Normal S2 Abdomen: Normal bowel sounds, Soft, No tenderness Extremities: Other (2+ edema bilaterally in the lower extremities) Medications Current Medications Medications Dose Ordered Sig/Taran Route Start Time Stop Time Status Last Admin Dose Admin Norepinephrine Bitartrate 250 ml @ 3.75 mls/hr Q24H IV 01/31/25 19:00 02/09/25 05:52 30 MLS/HR Ondansetron HCl 4 mg Q4HP PRN IV 01/31/25 19:30 Enoxaparin Sodium 40 mg DAILY SC 02/01/25 10:00 02/09/25 09:06 40 MG Acetaminophen 650 mg Q6HP PRN PO 01/31/25 19:30 02/07/25 10:56 650 MG Nitroglycerin 0.4 mg Q5MINP PRN SL 01/31/25 19:30 Carbidopa/Levodopa 2 tab HS PO 01/31/25 22:00 02/08/25 21:15 2 TAB Albuterol 2.5 mg Q6HPRN PRN NEB 01/31/25 19:30 02/09/25 08:23 2.5 MG Acetaminophen/ Hydrocodone Bitart 1 tab Q6HPRN PRN PO 02/01/25 03:45 02/09/25 06:19 1 TAB Digoxin 125 mcg DAILY IV 02/02/25 10:00 02/09/25 09:07 125 MCG Diagnostic Test (Pha) 1 strip ACHS 02/03/25 17:00 02/09/25 06:19 1 STRIP Insulin Human Regular ACHS SC 02/03/25 17:00 Dextrose 50 ml UD PRN IV 02/03/25 16:45 Levothyroxine Sodium 100 mcg QAM@0600 PO 02/08/25 06:00 02/09/25 06:18 100 MCG Dopamine HCl/ Dextrose 250 ml @ 8.663 mls/ hr Q24H IV 02/07/25 14:00 02/08/25 21:35 8.663 MLS/HR Patient Own Medication 160 mg DAILY IV 02/09/25 10:00 UNV Patient Own Medication 1 g Q8H IV 02/08/25 12:30 UNV Ceftolozane/ Tazobactam 3 gm/ Dextrose 100 ml @ 100 mls/hr Q8HR IV 02/08/25 14:00 02/09/25 05:57 100 MLS/HR Enteral Nutritional Formula 240 ml TIDWM PO 02/09/25 12:00 Laboratory Results Laboratory Tests 02/09/25 05:10 02/09/25 08:40 Chemistry Test 02/08/25 12:52 02/09/25 05:10 Albumin 3.2 g/dL (3.2-4.8) 3.1 g/dL (3.2-4.8) L Calcium Level 9.2 mg/dL (8.7-10.4) 9.1 mg/dL (8.7-10.4) Total Protein 5.4 g/dL (5.7-8.2) L 5.3 g/dL (5.7-8.2) L Magnesium Level 2.0 mg/dL (1.6-2.6) LFT Test 02/08/25 12:52 02/09/25 05:10 Alanine Aminotransferase (ALT) 9 U/L (7-40) < 9 U/L (7-40) Alkaline Phosphatase 82 U/L (46-116) 84 U/L (46-116) Aspartate Amino Transferase (AST) 17 U/L (13-40) 19 U/L (13-40) Total Bilirubin 0.3 mg/dL (0.2-1.0) 0.3 mg/dL (0.2-1.0) Urinalysis Test 01/31/25 16:30 02/08/25 11:45 Urine Hyaline Casts Few /lpf (0 - 2) Urine Mucus Few (None Seen) Urine Color Yellow (Yellow) Urine Clarity Cloudy (Clear) H Urine pH 5.5 (5.0-9.0) Urine Specific [place] 1.013 (1.001-1.035) Urine Protein 1+ (Negative) H Urine Ketones Negative (Negative) Urine Blood 1+ /uL (Negative) H Urine Nitrite Negative (Negative) Urine Bilirubin Negative (Negative) Urine Urobilinogen Normal mg/dL (Negative) Urine Leukocyte Esterase 3+ /uL (Negative) Urine RBC 110 /hpf (0 - 4) Urine WBC Clumps Present /hpf (None Seen) Urine Microscopic WBC 1269 /HPF (0-5) H Urine Squamous Epithelial Cells Few /hpf (<5) Urine Bacteria Few /hpf (None Seen) H Urine Yeast (Budding) Loaded /hpf (None Seen) Urine Glucose Normal mg/dL (Normal) Microbiology Microbiology Date/Time Source Procedure Growth Status 02/08/25 11:45 Urine - Hook Port Urine Culture - Preliminary Resulted 02/03/25 00:50 Nose MRSA Screen - Final Complete 01/31/25 11:10 Blood Blood Culture - Final NO GROWTH AFTER 5 DAYS OF INCUBATION. Complete Assessment/Plan Assessment/Plan Acute metabolic encephalopathy Septic shock due to UTI UTI Recent sepsis with a wound infection due to Pseudomonas aeruginosa MDRO Morbid obesity Bed-bound Type 2 diabetes Acute kidney injury Left hydronephrosis Horseshoe kidney Status post ureteral stent Chronic anemia Hyponatremia Atrial fibrillation Heart failure with preserved ejection fraction Plan Broad-spectrum antibiotics: Levofloxacin and gentamicin Vasopressors as needed, norepinephrine drip Cardiology consult Lasix drip per Dr. Cifuentes Full code Discussed with the daughter at the bedside Advance directives discussed for 20 minute 02/03/2025: Continue IV antibiotics Vasopressors Lasix Central line to be done by emergency room physician Cardiology consultation Dr. Cifuentes Monitor closely 02/04/2025: Replace magnesium and potassium Continue IV antibiotics Infectious Disease consultation Vasopressors as needed Lasix drip Monitor closely The rest of the management will depend on the hospital course 02/05/25: IV antibiotics: Gentamicin and levofloxacin Taper Levophed off as tolerated Lasix Replace K+ and Mg 02/06/2025: Continue the current management Tapered off the Levophed as tolerated Continue Lasix Replace potassium magnesium as needed 02/07/2025: Taper off the Levophed drip as tolerated Downgrade to telemetry once she is off the Levophed Discontinue the gentamicin Replace magnesium and potassium as needed Discharge planning once she is off the Levophed drip 02/08/2025: Levophed and dopamine drip Replace potassium and magnesium as needed Restarted antibiotics per Dr. Cifuentes Monitor closely 02/09/2025: Start Lasix 40 mg IV twice a day Continue Levophed and dopamine drip as needed IV antibiotics per Infectious Disease Dr. Adler Monitor closely Plan discussed with: Patient My Orders Orders - FALGUNI CM MD Procedure Category Date Status Time Urine Bacterial LIA 02/08/25 In Process Culture 11:40 Date of Service: Feb 09, 2025 Billing Provider: FALGUNI CM MD Common Visit Codes: [id number] INP/OBS CARE(HIGH) FALGUNI CM MD Feb 09, 2025 11:29
[2025-02-09] MEDS ORDERED: FUROSEMIDE 40 MG/4 ML VIAL IV ONE (11:30)
[2025-02-09] MEDS: Glucerna Carbsteady SHAKE Vanilla 8oz PO SCH (12:00)
[2025-02-09] MEDS: NOREPINEPHRINE 8 MG/250ML KIT 250 ML IV ONE (13:58)
[2025-02-09] MEDS: NOREPINEPHRINE 8 MG/250ML KIT 250 ML IV SCH (13:58)
--- NOTE | 2025-02-09 14:15 | DVHPN2 ---
Progress Note - Dictate Date Seen: Feb 09, 2025 Medical Necessity Reason Pt with a Central, PICC or Fol: Yes The following are medically ne: Hook Catheter Subjective SHE BECAME UNRESPONSIVE BLOOD SUGAR 166 SHE WAS MILDLY HYPOTENSIVE HAD LEFT SIGHT ARM MOVEMENT LASTED ABOUT 10 MINUTES TOTAL/ NO CLEAR POST ICTAL PERIOD PRESENTATION CONSISTENT WITH METABOLIC SYNDROME/ INFECTION ESPECIALLY WITH HER RECENT ADMISSION FOR SEPSIS/ BACTEREMIA RECENT HX OF HYPOTENSION POSITIVE BLOOD CX STAPH PRODUCTIVE COUGH HYPOXIA SEVERE ANEMIA HX OF BLEEDING DIATHESIS NOW BEING TRANSFUSE PMH; HEMATURIA HX OF ORGANIC HD S/P TAVR HX OF AV STENOSIS HTN HFpEF DIASTOLIC DYSFUNCTION AFIB ON SOTALOL HYPERCOAGULABLE STATE HX OF DVT MORBID OBESITY 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 ANEMIA HYPONATREMIA DECUB STAGE II MULTIPLE ORGANISM PSEUDOMONAS vital signs Vital Sign Date Time Temp Pulse Resp B/P (MAP) Pulse Ox O2 Delivery O2 Flow Rate FiO2 02/09/25 13:58 81/27 02/09/25 12:45 89 15 99 02/09/25 10:00 Room Air* 0 21 02/09/25 08:16 96.1 96.1 Total Intake and Output 02/08/25 02/08/25 02/09/25 15:00 23:00 07:00 Intake Total 286.804 ml 1310.554 ml 559.304 ml Output Total 200 ml 250 ml Balance 286.804 ml 1110.554 ml 309.304 ml medications Current Medications Medications Dose Ordered Sig/Taran Route Start Time Stop Time Status Last Admin Dose Admin Ondansetron HCl 4 mg Q4HP PRN IV 01/31/25 19:30 Enoxaparin Sodium 40 mg DAILY SC 02/01/25 10:00 02/09/25 09:06 40 MG Acetaminophen 650 mg Q6HP PRN PO 01/31/25 19:30 02/07/25 10:56 650 MG Nitroglycerin 0.4 mg Q5MINP PRN SL 01/31/25 19:30 Carbidopa/Levodopa 2 tab HS PO 01/31/25 22:00 02/08/25 21:15 2 TAB Albuterol 2.5 mg Q6HPRN PRN NEB 01/31/25 19:30 02/09/25 08:23 2.5 MG Acetaminophen/ Hydrocodone Bitart 1 tab Q6HPRN PRN PO 02/01/25 03:45 02/09/25 06:19 1 TAB Digoxin 125 mcg DAILY IV 02/02/25 10:00 02/09/25 09:07 125 MCG Diagnostic Test (Pha) 1 strip ACHS 02/03/25 17:00 02/09/25 11:31 1 STRIP Insulin Human Regular ACHS SC 02/03/25 17:00 Dextrose 50 ml UD PRN IV 02/03/25 16:45 Levothyroxine Sodium 100 mcg QAM@0600 PO 02/08/25 06:00 02/09/25 06:18 100 MCG Dopamine HCl/ Dextrose 250 ml @ 8.663 mls/ hr Q24H IV 02/07/25 14:00 02/08/25 21:35 8.663 MLS/HR Patient Own Medication 160 mg DAILY IV 02/09/25 10:00 UNV Patient Own Medication 1 g Q8H IV 02/08/25 12:30 UNV Ceftolozane/ Tazobactam 3 gm/ Dextrose 100 ml @ 100 mls/hr Q8HR IV 02/08/25 14:00 02/09/25 05:57 100 MLS/HR Enteral Nutritional Formula 240 ml TIDWM PO 02/09/25 12:00 Furosemide 40 mg BIDD IV 02/09/25 18:00 Norepinephrine Bitartrate 250 ml @ 3.75 mls/hr Q24H IV 02/09/25 12:45 laboratory and microbiology Laboratory Tests 02/09/25 08:40 02/09/25 05:10 Test 02/09/25 05:10 Range/Units Serum Glucose 117 H 74-106 mg/dL Problem List SHE BECAME UNRESPONSIVE BLOOD SUGAR 166 HYPOTENSIVE HAD LEFT SIGHT ARM MOVEMENT LASTED ABOUT 10 MINUTES TOTAL/ NO CLEAR POST ICTAL PERIOD PRESENTATION CONSISTENT WITH METABOLIC SYNDROME/ INFECTION ESPECIALLY WITH HER RECENT ADMISSION FOR SEPSIS/ BACTEREMIA RECENT HX OF HYPOTENSION POSITIVE BLOOD CX STAPH PRODUCTIVE COUGH HYPOXIA SEVERE ANEMIA HX OF BLEEDING DIATHESIS NOW BEING TRANSFUSE PMH; HEMATURIA HX OF ORGANIC HD S/P TAVR HX OF AV STENOSIS HTN HFpEF DIASTOLIC DYSFUNCTION AFIB ON SOTALOL HYPERCOAGULABLE STATE HX OF DVT MORBID OBESITY 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 ANEMIA HYPONATREMIA PSEUDOMONAS INFECTION Assessment/Plan ABX PRESSORS WOUND CARE TRIPLE LUMEN INSERTION DC LASIX LABS START DOPAMINE RENAL PERFUSION STOOL OCCULT BLOOD SECONDARY TO HIGH BUN / CR RATIO WILL RESTART LASIX IN AM 3% saline resume gent and meropanam DC ABOVE ABX TREATMENT FOR YEAST AND VRE ENTEROCOCCUS Dietary Evaluation Review Comments: 1. CCHO-60 2 gNa diet w 45g proein restriction 2. Try Devin for wound healing 3. Wt management 4. F/U with nephrology and updated lab values Expected Outcomes/Goals: Less uremic syndrome, controlled DM Plan discussed with: Patient, Daughter Critical Care Time(min): 35 MONTRELL RANKIN MD Feb 09, 2025 14:15
[2025-02-09] MEDS: IOHEXOL 300 MG/ML 100ML BOTTLE IJ ONE (14:59)
--- NOTE | 2025-02-09 15:53 | DVHPN2 ---
Consult Progress Note Date Seen: Feb 09, 2025 Subjective Patient reports: No new complaints Other Systems: Off of pressors and soft bp but lower suspicion of active infection. Was started gentamicin and meropenem. Workup in progress. Repeat use of diuretics with dopamine. Unlikely will need it. Still seems intravascularly hypovolumic, oncotic pressure seems improving with elevating albumin. 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 Skin: Warm, dry, normal color and texture, no rash. HEENT: Normocephalic atraumatic, mucous membranes moist and pink. Neck: Cervical and supraclavicular nodes normal without enlargement, trachea is midline, thyroid gland is normal without masses. Pulmonary: Clear to auscultation and percussion bilaterally. Cardiac: Regular rate and rhythm. No murmur Abdomen: Soft, nontender, nondistended, bowel sounds present all 4 quadrants, no guarding, no rigidity, no organomegaly. Warm and dry, no rashes. Notable for serous oozing from sacral and buttock ulcers with some psoriatic component, scattered ecchymosis and blister on right upper arm, bilateral upper extremity ulcers, stage 12 ulcers on posterior thighs. Extremities: No cyanosis, clubbing, no edema Neuro: Cranial nerves II through XII grossly intact, normal affect and speech, no focal motor deficits. No signs of active infection noted, yet again. medications Current Medications Medications Dose Ordered Sig/Taran Route Start Time Stop Time Status Last Admin Dose Admin Ondansetron HCl 4 mg Q4HP PRN IV 01/31/25 19:30 Enoxaparin Sodium 40 mg DAILY SC 02/01/25 10:00 02/09/25 09:06 40 MG Acetaminophen 650 mg Q6HP PRN PO 01/31/25 19:30 02/07/25 10:56 650 MG Nitroglycerin 0.4 mg Q5MINP PRN SL 01/31/25 19:30 Carbidopa/Levodopa 2 tab HS PO 01/31/25 22:00 02/08/25 21:15 2 TAB Albuterol 2.5 mg Q6HPRN PRN NEB 01/31/25 19:30 02/09/25 08:23 2.5 MG Acetaminophen/ Hydrocodone Bitart 1 tab Q6HPRN PRN PO 02/01/25 03:45 02/09/25 06:19 1 TAB Digoxin 125 mcg DAILY IV 02/02/25 10:00 02/09/25 09:07 125 MCG Diagnostic Test (Pha) 1 strip ACHS 02/03/25 17:00 02/09/25 11:31 1 STRIP Insulin Human Regular ACHS SC 02/03/25 17:00 Dextrose 50 ml UD PRN IV 02/03/25 16:45 Levothyroxine Sodium 100 mcg QAM@0600 PO 02/08/25 06:00 02/09/25 06:18 100 MCG Patient Own Medication 160 mg DAILY IV 02/09/25 10:00 UNV Patient Own Medication 1 g Q8H IV 02/08/25 12:30 UNV Ceftolozane/ Tazobactam 3 gm/ Dextrose 100 ml @ 100 mls/hr Q8HR IV 02/08/25 14:00 02/09/25 15:32 100 MLS/HR Enteral Nutritional Formula 240 ml TIDWM PO 02/09/25 12:00 Norepinephrine Bitartrate 250 ml @ 3.75 mls/hr Q24H IV 02/09/25 12:45 Furosemide 100 mg/ Sodium Chloride 110 ml @ 11 mls/hr Q10H IV 02/09/25 14:30 UNV Dopamine HCl/ Dextrose 250 ml @ 21.694 mls/ hr [id number] IV 02/09/25 15:00 UNV laboratory and microbiology Laboratory Tests 02/09/25 08:40 02/09/25 05:10 Test 02/09/25 05:10 Range/Units Serum Glucose 117 H 74-106 mg/dL Problem List/Assessment/Plan Problem List/Assessment/Plan TANESHA Marie 79-year-old female with past medical history includes congestive heart failure, chronic kidney disease, diabetes mellitus, hypertension, hypothyroidism, anemia, atrial fibrillation and tonsillectomy presents with altered mental status following a recent onet progressive lethargy following a recent hospitalization for sepsis. 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 Presently, she has sacral and buttock ulcers with serous drainage, suggestive of pressure injury and psoriatic flare, along with stage 12 ulcers on her posterior thighs and ecchymosis with blistering on both upper extremities. She required Levophed for hypotension in the ED and was started on levofloxacin due to allergies to penicillin and ceftriaxone. Labs show mild lactic acidosis, significant pyuria, and VRE with presumptive *Leidy albicans* in the urine. Imaging reveals cerebral volume loss on head CT and a chest X-ray showing cardiomegaly, left lower lobe opacity, and prominent pulmonary vasculature. She lives with family, who deny any substance abuse. Assessment: #Acute complicated urinary tract infection, with Enterococcus faecium VRE and presumptive Leidy albicans on gentamicin #Changed Hook's catheter with repeat culture on yeast likely normal luiz. #Sacral and buttock ulcers, including possible psoriatic involvement , negative blood culture from 01/31/2025 #Infected sacral ulcer #Septic shock, possibly due to more than one source of infection #Poor oral hygiene with dental caries, aspiration risk #Thrombocytopenia mild, limiting the use of linezolid #History of MDR Pseudomonas aeruginosa and ESBL E coli UTI history #Known allergy to ceftriaxone, morphine, penicillins and sulfa antibiotics #Recent sepsis related hospitalization in December 2024 #Past Surgical History of Tonsillectomy, negative for nasal MRSA colonization #Previous history of MRSA nasal colonization, status post decolonized #History of recurrent ESBL UTI #H/o Staphylococcus hominis, Staphylococcus auricularis, Staphylococcus epidermidis and ESBL E coli bacteremia in 2021 and 2018 respectively #intertrigo on topical nystatin antifungal powder - #Toxic versus metabolic encephalopathy secondary to sepsis #Diabetes mellitus # psoriasis #Hypovolemic hyponatremia #Yet to rule out digoxin toxicity #Anemia of chronic disease mixed with iron-deficiency anemia #[id number] protein energy malnutrition #Grade 3 obesity, chronically bed-bound #Congenital, horseshoe shaped kidney #Left hydronephrosis status post urethral stent #Heart failure with preserved ejection fraction #Acute kidney injury secondary to VMN #Chronic kidney disease (CKD) #H/o essential Hypertension #Hypothyroidism on levothyroxine #Hypovitaminosis D #Atrial fibrillation on Eliquis #Secondary hypercoagulable state #History of slow GI bleed #Parkinsonism #Restless leg syndrome #Osteoarthritis with or without component of psoriatic arthritis Plan: # No need of gentamicin and/or meropenem at this time. # Low suspicion of repeat infection, Continue IV Ceftaroline monotherapy for now (Day 2), blood culture, sputum culture, urine culture to continue and CT abdomen pelvis will further guide need of antibiotics. # Please hold further IV Lasix drip cautiously, rehydrate along with high- protein diet for oncotic pressure. Will consult Nephrology for expert opinion. # Avoid overtreatment of urine culture organisms; current findings likely represent colonization. If workup negative then safely can consider holding all antibiotics and monitor clinically. # Further wound assessment and management for sacral and posterior thigh ulcers, including wound care consult and assessment for concomitant psoriatic component. Discussed with Dr. Adler. Infectious Disease we will continue to follow up the patient. Thank you. Plan discussed with: Patient, Other (primary team, RN) Dietary Evaluation Review Comments: 1. CCHO-60 2 gNa diet w 45g proein restriction 2. Try Devin for wound healing 3. Wt management 4. F/U with nephrology and updated lab values Expected Outcomes/Goals: Less uremic syndrome, controlled DM ION ROMERO RESIDENT Feb 09, 2025 15:53
[2025-02-09] MEDS: DOPamine 1600MCG/ML D5W 250 ML IV SCH (16:23)
[2025-02-09] MEDS: FUROSEMIDE INJECTION 100 MG in SODIUM CHL 0.9% 100 ML IV SCH (17:26)
[2025-02-09] MEDS ORDERED: FUROSEMIDE 40 MG/4 ML VIAL IV SCH (18:00)
--- NOTE | 2025-02-09 18:36 | DVH ---
Indication: Rule Out abscess and collection Technique: CT axial images of the abdomen and pelvis are obtained with and without intravenous contra st. Coronal and sagittal reformats were obtained. Radiation Dose Information: CTDI volume is 27.63 mGy. Dose-length product is 2709.19 mGy*cm Comparison: CT CT AB PEL WITH IV CON ONLY on DOS: 12/29/23 FINDINGS: Small bilateral pleural effusions. Aortic valvular prosthesis. Coronary artery calcification diseas e. Bibasilar atelectasis/ consolidation. Adrenal glands, spleen unremarkable in shape. Fatty infiltration of the pancreas. No CT evidence fo r cholelithiasis. No enhancing hepatic lesion. Horseshoe kidney. Parenchymal atrophy of the right renal moiety. 4 mm nonobstructing right renal calc ulus. 2 mm nonobstructing left renal moiety calculus. Moderate size hiatal hernia. Small bowel loops are normal in caliber. Moderate to large volume stool within the colon. No secondary signs for appendicitis. Abdominal aortic atherosclerotic disease. Left ovarian/adnexal cystic lesion measuring 2.[address] partially decompressed by Hook catheter. No free pelvic fluid. No inguinal lymphadenopathy. Soft tissue edema /anasarca. Right common femoral vein central venous catheter terminating in the right common iliac vein. Periumbilical hernia containing fat measuring 4.8 x 3.2 cm. Osteopenia. Moderate bilateral sacroiliac degenerative joint disease. Moderate thoracolumbar degener ative disc disease. IMPRESSION: No intraperitoneal abscess identified. Small bilateral pleural effusions. Bibasilar pulmonary atelectasis /consolidation. Horseshoe kidney. Right renal moiety atrophy. Bilateral nonobstructing calculi. Moderate to large volume stool in the colon. Hiatal hernia. Soft tissue edema /anasarca. Paraumbilical hernia measuring 4.8 cm. Left ovarian/ adnexal cystic lesion measuring 2.9 cm, similar to prior. Other findings as described.
[2025-02-10] VITALS (110 sets, daily range): BP systolic 45–154; BP diastolic 12–128; PULSE 77–122; RESP 9–25; TEMP 97.3–98; O2SAT 87–100
[2025-02-10 06:12] LABS: Anion Gap 12 (5-15); Carbon Dioxide 21 mmol/L (20-31); Potassium 3.8 mmol/L (3.5-5.1)
[2025-02-10 06:13] LABS: Calcium 9.1 mg/dL (8.7-10.4)
[2025-02-10 06:18] LABS: BUN/Creatinine Ratio 52.3 (10.0-20.0); Glucose 102 mg/dL (74-106)
[2025-02-10 06:19] LABS: Magnesium 1.9 mg/dL (1.6-2.6)
[2025-02-10 06:25] LABS: Blood Urea Nitrogen 57 mg/dL (9-23); Chloride 96 mmol/L (98-107); Sodium 129 mmol/L (136-145)
--- NOTE | 2025-02-10 17:25 | DVHPN2 ---
Subjective Still with significant edema Reviewed: Care Plan, H&P, Labs, Medications, Previous Orders, Radiology Changes from previous H/P or p: Changes Objective Vitals Vital Signs Date Time Temp Pulse Resp B/P (MAP) Pulse Ox O2 Delivery O2 Flow Rate FiO2 02/10/25 17:00 122 16 111/63 (79) 99 02/10/25 16:00 Room Air* 0 21 02/10/25 12:03 98.0 98.0 Intake/Output Intake and Output 02/10/25 07:00 Intake Total 1745.144 ml Output Total 1350 ml Balance 395.144 ml Intake Oral 345 ml IV Total 1400.144 ml Output Urine Total 1350 ml # Bowel Movements 1 General Appearance: Alert, Other (Disoriented) Lungs: Other (Bilateral crackles) Cardiovascular: Regular rate, Normal S1, Normal S2 Abdomen: Normal bowel sounds, Soft, No tenderness Extremities: Other (2+ edema bilaterally in the lower extremities) Medications Current Medications Medications Dose Ordered Sig/Taran Route Start Time Stop Time Status Last Admin Dose Admin Ondansetron HCl 4 mg Q4HP PRN IV 01/31/25 19:30 Enoxaparin Sodium 40 mg DAILY SC 02/01/25 10:00 02/10/25 09:43 40 MG Acetaminophen 650 mg Q6HP PRN PO 01/31/25 19:30 02/09/25 18:29 650 MG Nitroglycerin 0.4 mg Q5MINP PRN SL 01/31/25 19:30 Carbidopa/Levodopa 2 tab HS PO 01/31/25 22:00 02/09/25 20:52 2 TAB Albuterol 2.5 mg Q6HPRN PRN NEB 01/31/25 19:30 02/10/25 13:49 2.5 MG Acetaminophen/ Hydrocodone Bitart 1 tab Q6HPRN PRN PO 02/01/25 03:45 02/10/25 06:34 1 TAB Digoxin 125 mcg DAILY IV 02/02/25 10:00 02/10/25 09:44 125 MCG Diagnostic Test (Pha) 1 strip ACHS 02/03/25 17:00 02/10/25 17:06 1 STRIP Insulin Human Regular ACHS SC 02/03/25 17:00 Dextrose 50 ml UD PRN IV 02/03/25 16:45 Levothyroxine Sodium 100 mcg QAM@0600 PO 02/08/25 06:00 02/10/25 06:29 100 MCG Patient Own Medication 160 mg DAILY IV 02/09/25 10:00 UNV Patient Own Medication 1 g Q8H IV 02/08/25 12:30 UNV Ceftolozane/ Tazobactam 3 gm/ Dextrose 100 ml @ 100 mls/hr Q8HR IV 02/08/25 14:00 02/10/25 14:07 100 MLS/HR Enteral Nutritional Formula 240 ml TIDWM PO 02/09/25 12:00 02/10/25 12:00 240 ML Norepinephrine Bitartrate 250 ml @ 3.75 mls/hr Q24H IV 02/09/25 12:45 02/10/25 14:05 18.75 MLS/HR Furosemide 100 mg/ Sodium Chloride 110 ml @ 11 mls/hr Q10H IV 02/09/25 14:30 02/10/25 14:05 11 MLS/HR Dopamine HCl/ Dextrose 250 ml @ 21.694 mls/ hr [id number] IV 02/09/25 15:00 02/10/25 06:35 21.694 MLS/HR Laboratory Results Laboratory Tests 02/09/25 05:10 02/10/25 04:44 Chemistry Test 02/10/25 04:44 Calcium Level 9.1 mg/dL (8.7-10.4) Magnesium Level 1.9 mg/dL (1.6-2.6) Urinalysis Test 01/31/25 16:30 02/08/25 11:45 Urine Hyaline Casts Few /lpf (0 - 2) Urine Mucus Few (None Seen) Urine Color Yellow (Yellow) Urine Clarity Cloudy (Clear) H Urine pH 5.5 (5.0-9.0) Urine Specific [place] 1.013 (1.001-1.035) Urine Protein 1+ (Negative) H Urine Ketones Negative (Negative) Urine Blood 1+ /uL (Negative) H Urine Nitrite Negative (Negative) Urine Bilirubin Negative (Negative) Urine Urobilinogen Normal mg/dL (Negative) Urine Leukocyte Esterase 3+ /uL (Negative) Urine RBC 110 /hpf (0 - 4) Urine WBC Clumps Present /hpf (None Seen) Urine Microscopic WBC 1269 /HPF (0-5) H Urine Squamous Epithelial Cells Few /hpf (<5) Urine Bacteria Few /hpf (None Seen) H Urine Yeast (Budding) Loaded /hpf (None Seen) Urine Glucose Normal mg/dL (Normal) Microbiology Microbiology Date/Time Source Procedure Growth Status 02/08/25 22:15 Urine - Hook Port Urine Culture - Preliminary Resulted 02/08/25 20:11 Blood Blood Culture - Preliminary NO GROWTH AFTER 24 HOURS OF INCUBATION. Resulted 02/03/25 00:50 Nose MRSA Screen - Final Complete Assessment/Plan Assessment/Plan Acute metabolic encephalopathy Septic shock due to UTI UTI Recent sepsis with a wound infection due to Pseudomonas aeruginosa MDRO Morbid obesity Bed-bound Type 2 diabetes Acute kidney injury Left hydronephrosis Horseshoe kidney Status post ureteral stent Chronic anemia Hyponatremia Atrial fibrillation Heart failure with preserved ejection fraction Plan Broad-spectrum antibiotics: Levofloxacin and gentamicin Vasopressors as needed, norepinephrine drip Cardiology consult Lasix drip per Dr. Cifuentes Full code Discussed with the daughter at the bedside Advance directives discussed for 20 minute 02/03/2025: Continue IV antibiotics Vasopressors Lasix Central line to be done by emergency room physician Cardiology consultation Dr. Cifuentes Monitor closely 02/04/2025: Replace magnesium and potassium Continue IV antibiotics Infectious Disease consultation Vasopressors as needed Lasix drip Monitor closely The rest of the management will depend on the hospital course 02/05/25: IV antibiotics: Gentamicin and levofloxacin Taper Levophed off as tolerated Lasix Replace K+ and Mg 02/06/2025: Continue the current management Tapered off the Levophed as tolerated Continue Lasix Replace potassium magnesium as needed 02/07/2025: Taper off the Levophed drip as tolerated Downgrade to telemetry once she is off the Levophed Discontinue the gentamicin Replace magnesium and potassium as needed Discharge planning once she is off the Levophed drip 02/08/2025: Levophed and dopamine drip Replace potassium and magnesium as needed Restarted antibiotics per Dr. Cifuentes Monitor closely 02/09/2025: Start Lasix 40 mg IV twice a day Continue Levophed and dopamine drip as needed IV antibiotics per Infectious Disease Dr. Adler Monitor closely 02/10/25: Continue Lasix drip Levo Dopamine IV antibiotics Plan discussed with: Patient My Orders Orders - FALGUNI CM MD Procedure Category Date Status Time Cleanse Wound With MARICHUY 02/09/25 In Process Wound Clean 17:49 Date of Service: Feb 10, 2025 Billing Provider: FALGUNI CM MD Common Visit Codes: [id number] INP/OBS CARE(HIGH) FALGUNI CM MD Feb 10, 2025 17:25
--- NOTE | 2025-02-10 21:18 | DVHINCON2 ---
Date of service: Feb 10, 2025 Reason for Consultation CHANTAL History of Present Illness 79 years old female with past medical history of Chronic kidney disease, congestive heart failure, diabetes, hypertension, AFib, hypothyroidism presented with chief complaints of altered mental status currently she is in shock needing Levophed she is also on dopamine in the Lasix drips nephrology consulted for volume management Past Medical History As per HPI Allergies: Coded Allergies: Penicillins (Unverified Allergy, Severe, 03/16/15) Sulfa Antibiotics (Unverified Allergy, Severe, 03/16/15) Morphine (Verified Allergy, Intermediate, ALTERED, 01/31/18) PER PATIENT AND HER DAUGHTER SHE CAN NOT HAVE Ceftriaxone (Verified Allergy, Unknown, 01/31/18) COUGH AND CHILLS Home Meds Active Scripts Levothyroxine Sodium (Levothyroxine Sodium) 50 Mcg Tab, 50 MCG PO QAM@0600 for 30 Days, #30 TAB Prov:MARÍA SKY RESIDENT 01/26/25 Reported Medications Clotrimazole W/ Betamethasone (Clotrimazole/Betamethason 1-0.05 %) 1 Cre Cre, 1 CRE EX BID for 120 Days, #60 01/03/25 Linaclotide Base (LINZESS) 290 Mcg Cap, 1 CAP PO DAILY for 30 Days, #30 01/03/25 Ondansetron HCl (Ondansetron Hydrochloride) 4 Mg Tab, 1 TAB PO Q8HPRN 04/25/24 Esomeprazole Magnesium (Esomeprazole Magnesium Dr) 40 Mg Cap, 40 MG PO DAILY, CAP 11/03/23 Acetaminophen (8 Hour Arthritis Pain Rel) 650 Mg Tab, 650 MG PO TID for ARTHRITIS 01/23/22 Levodopa W/Carbidopa (Sinemet) 10 / Tab, 2 TAB PO HS for TREMORS 01/23/22 Albuterol Sulfate (Albuterol Sulfate) 0.083 % Neb, 1 VIAL NEB Q6HR PRN for SHORTNESS OF BREATH 02/05/20 Fluticasone Propionate (Nasal) (Flonase Allergy Relief) 50 Mcg/Act Spr, 1 SPR NA BID PRN for ALLERGIES 02/05/20 Apremilast Base (Otezla) 30 Mg Tab, 1 TAB PO BID for ARTHRITIS 03/28/19 Tramadol HCl (Tramadol Hydrochloride) 50 Mg Tab, 1 TAB PO QID PRN for MODERATE PAIN (4-6 PAIN SCALE) 10/30/18 Ropinirole Hydrochloride (Requip) 1 Mg Tab, 1 TAB PO HS for RESTLESS LEGS for 90 Days, #90 03/17/15 Current Medications Current Medications Medications (Trade) Dose Ordered Sig/Taran Route PRN Reason Start Time Stop Time Status Last Admin Potassium Chloride 100 ml @ 50 mls/hr Q2H IV 02/11/25 06:00 02/11/25 09:59 DC 02/11/25 08:35 Magnesium Sulfate/ Dextrose 100 ml @ 100 mls/hr Q1HR IV 02/11/25 10:00 02/11/25 11:59 DC 02/11/25 11:00 Betamethasone Dipropion Augmented (Diprosone 0.05% Cream) 1 applic DAILY TOP 02/12/25 10:00 Clotrimazole (Lotrimin 1% Cream) 1 applic DAILY TOP 02/12/25 10:00 Patient Own Medication 1 DAILY TOP 02/12/25 10:00 Dopamine HCl/ Dextrose 250 ml @ 10.847 mls/ hr Q23H3M IV 02/11/25 18:30 Bumetanide 12.5 mg/Miscellaneous 50 ml @ 2 mls/hr Q24H IV 02/11/25 18:30 UNV Family History: Cancer G8 MOTHER G8 SISTER Chronic obstructive lung disease (situation) G8 FATHER Family history: Cardiovascular disease G8 MOTHER G8 FATHER Family history: Hypertension G8 MOTHER G8 FATHER Suicide G8 FATHER Review of Systems Poor historian H&P Exam Vital Signs/I&O Vital Sign Date Time Temp Pulse Resp B/P (MAP) Pulse Ox O2 Delivery O2 Flow Rate FiO2 02/11/25 18:00 77 02/11/25 18:00 13 95 Room Air* 0 21 02/11/25 17:01 87/40 (56) 02/11/25 16:31 97.6 97.6 Intake and Output 02/10/25 02/11/25 19:00 07:00 Intake Total 1324.828 ml 1128.759 ml Output Total 500 ml 800 ml Balance 824.828 ml 328.759 ml Intake Oral 600 ml 300 ml IV Total 724.828 ml 828.759 ml Output Urine Total 500 ml 800 ml Physical Exam General-not in any distress HEENT-normocephalic, no icterus, no pallor, neck supple Respiratory-fair air entry bilateral, [id number] heard, irregular RR Abdominal-soft, nontender, nondistended Musculoskeletal-4+ pitting pedal edema, no calf tenderness Genitourinary-deferred Labs/Diagnostic Data Labs/Diagnostic Data Laboratory Tests Test 02/11/25 17:14 02/11/25 13:43 02/11/25 11:18 02/11/25 10:30 Range/Units POC Glucose 108 H 136 H 74 70-106 mg/dl Stool Occult Blood Negative Negative Stool Occult Blood Sample #3 Negative Test 02/11/25 07:20 02/11/25 06:50 02/11/25 04:33 02/10/25 21:57 Range/Units POC Glucose 210 H 54 L 76 70-106 mg/dl Sodium Level 130 L 136-145 mmol/L Potassium Level 3.3 L 3.5-5.1 mmol/L Chloride Level 96 L 98-107 mmol/L Carbon Dioxide Level 22 20-31 mmol/L Anion Gap 12 5-15 Blood Urea Nitrogen 63 H 9-23 mg/dL Creatinine 1.07 H 0.550-1.02 mg/dL Glomerular Filtration Rate Calc 52 >90 mL/min BUN/Creatinine Ratio 58.9 H 10.0-20.0 Serum Glucose 105 74-106 mg/dL Calcium Level 9.1 8.7-10.4 mg/dL Magnesium Level 1.7 1.6-2.6 mg/dL Test 02/10/25 17:09 02/10/25 11:40 02/10/25 06:20 02/10/25 04:44 Range/Units POC Glucose 126 H 119 H 79 70-106 mg/dl Sodium Level 129 L 136-145 mmol/L Potassium Level 3.8 3.5-5.1 mmol/L Chloride Level 96 L 98-107 mmol/L Carbon Dioxide Level 21 20-31 mmol/L Anion Gap 12 5-15 Blood Urea Nitrogen 57 #H 9-23 mg/dL Creatinine 1.09 H 0.550-1.02 mg/dL Glomerular Filtration Rate Calc 51 >90 mL/min BUN/Creatinine Ratio 52.3 H 10.0-20.0 Serum Glucose 102 74-106 mg/dL Calcium Level 9.1 8.7-10.4 mg/dL Magnesium Level 1.9 1.6-2.6 mg/dL Test 02/09/25 21:20 02/09/25 17:25 02/09/25 11:28 02/09/25 08:40 Range/Units POC Glucose 81 106 103 70-106 mg/dl Sodium Level 127 L 136-145 mmol/L Test 02/09/25 06:13 02/09/25 05:10 02/09/25 01:50 02/08/25 21:12 Range/Units POC Glucose 113 H 123 H 70-106 mg/dl White Blood Count 11.9 H 4.4-10.8 10^3/uL Red Blood Count 3.60 L 4.0-5.20 10^6/uL Hemoglobin 9.9 L 12.2-16.2 g/dL Hematocrit 29.6 L 36.0-46.0 % Mean Corpuscular Volume 82.4 80.0-100.0 fL Mean Corpuscular Hemoglobin 27.5 L 28.0-32.0 pg Mean Corpuscular Hemoglobin Concent 33.3 32.0-36.0 g/dL Red Cell Distribution Width 18.7 H 11.8-14.3 % Platelet Count 206 140-450 10^3/uL Mean Platelet Volume 7.3 6.9-10.8 fL Neutrophils (%) (Auto) 37.0-80.0 % Lymphocytes (%) (Auto) 10.0-50.0 % Monocytes (%) (Auto) 0.0-12.0 % Basophils (%) (Auto) 0.0-2.0 % Neutrophils # (Auto) 1.6-8.6 10 ^3/uL Lymphocytes # (Auto) 0.4-5.4 10 ^3/uL Monocytes # (Auto) 0-1.3 10 ^3/uL Differential Total Cells Counted 100.0 100 Neutrophils % (Manual) 81 H 37.0-80.0 Band Neutrophils % (Manual) 1 Lymphocytes % (Manual) 12 10.0-50.0 Monocytes % (Manual) 6 0-12 Eosinophils % (Manual) 0 0-7 Basophils % (Manual) 0 0.0-2.0 Metamyelocytes % (manual) 0 Myelocytes % (Manual) 0 Promyelocytes % (Manual) 0 Blast Cells % (Manual) 0 Nucleated Red Blood Cells 1.0 % Reactive Lymphocytes 0 Platelet Estimate Adequate Sodium Level 128 L 128 L 136-145 mmol/L Potassium Level 4.1 3.5-5.1 mmol/L Chloride Level 96 L 98-107 mmol/L Carbon Dioxide Level 24 20-31 mmol/L Anion Gap 8 5-15 Blood Urea Nitrogen 70 #H 9-23 mg/dL Creatinine 1.05 H 0.550-1.02 mg/dL Glomerular Filtration Rate Calc 53 >90 mL/min BUN/Creatinine Ratio 66.7 H 10.0-20.0 Serum Glucose 117 H 74-106 mg/dL Calcium Level 9.1 8.7-10.4 mg/dL Magnesium Level 2.0 1.6-2.6 mg/dL Total Bilirubin 0.3 0.2-1.0 mg/dL Aspartate Amino Transferase (AST) 19 13-40 U/L Alanine Aminotransferase (ALT) < 9 7-40 U/L Alkaline Phosphatase 84 46-116 U/L Total Protein 5.3 L 5.7-8.2 g/dL Albumin 3.1 L 3.2-4.8 g/dL Test 02/08/25 19:59 02/08/25 16:45 02/08/25 12:52 02/08/25 11:45 Range/Units Sodium Level 126 L 124 L 136-145 mmol/L POC Glucose 111 H 70-106 mg/dl Potassium Level 4.2 3.5-5.1 mmol/L Chloride Level 91 L 98-107 mmol/L Carbon Dioxide Level 24 20-31 mmol/L Anion Gap 9 5-15 Blood Urea Nitrogen 59 H 9-23 mg/dL Creatinine 1.10 H 0.550-1.02 mg/dL Glomerular Filtration Rate Calc 50 >90 mL/min BUN/Creatinine Ratio 53.6 H 10.0-20.0 Serum Glucose 110 H 74-106 mg/dL Calcium Level 9.2 8.7-10.4 mg/dL Total Bilirubin 0.3 0.2-1.0 mg/dL Aspartate Amino Transferase (AST) 17 13-40 U/L Alanine Aminotransferase (ALT) 9 7-40 U/L Alkaline Phosphatase 82 46-116 U/L Total Protein 5.4 L 5.7-8.2 g/dL Albumin 3.2 3.2-4.8 g/dL Urine Color Yellow Yellow Urine Clarity Cloudy H Clear Urine pH 5.5 5.0-9.0 Urine Specific [place] 1.013 1.001-1.035 Urine Protein 1+ H Negative Urine Ketones Negative Negative Urine Blood 1+ H Negative /uL Urine Nitrite Negative Negative Urine Bilirubin Negative Negative Urine Urobilinogen Normal Negative mg/dL Urine Leukocyte Esterase 3+ Negative /uL Urine RBC 110 0 - 4 /hpf Urine WBC Clumps Present None Seen /hpf Urine Microscopic WBC 1269 H 0-5 /HPF Urine Squamous Epithelial Cells Few <5 /hpf Urine Bacteria Few H None Seen /hpf Urine Yeast (Budding) Loaded None Seen /hpf Urine Glucose Normal Normal mg/dL Test 02/08/25 11:14 02/08/25 04:40 02/07/25 21:30 02/07/25 16:30 Range/Units POC Glucose 121 H 105 70-106 mg/dl White Blood Count 12.7 H 4.4-10.8 10^3/uL Red Blood Count 3.57 L 4.0-5.20 10^6/uL Hemoglobin 9.8 L 12.2-16.2 g/dL Hematocrit 29.3 L 36.0-46.0 % Mean Corpuscular Volume 82.0 80.0-100.0 fL Mean Corpuscular Hemoglobin 27.6 L 28.0-32.0 pg Mean Corpuscular Hemoglobin Concent 33.7 32.0-36.0 g/dL Red Cell Distribution Width 18.5 H 11.8-14.3 % Platelet Count 167 140-450 10^3/uL Mean Platelet Volume 7.7 6.9-10.8 fL Neutrophils (%) (Auto) 37.0-80.0 % Lymphocytes (%) (Auto) 10.0-50.0 % Monocytes (%) (Auto) 0.0-12.0 % Basophils (%) (Auto) 0.0-2.0 % Neutrophils # (Auto) 1.6-8.6 10 ^3/uL Lymphocytes # (Auto) 0.4-5.4 10 ^3/uL Monocytes # (Auto) 0-1.3 10 ^3/uL Differential Total Cells Counted 100.0 100 Neutrophils % (Manual) 74 37.0-80.0 Band Neutrophils % (Manual) 2 Lymphocytes % (Manual) 14 10.0-50.0 Monocytes % (Manual) 8 0-12 Eosinophils % (Manual) 2 0-7 Basophils % (Manual) 0 0.0-2.0 Metamyelocytes % (manual) 0 Myelocytes % (Manual) 0 Promyelocytes % (Manual) 0 Blast Cells % (Manual) 0 Reactive Lymphocytes 0 Platelet Estimate Adequate Sodium Level 124 L 136-145 mmol/L Potassium Level 3.8 4.1 3.5-5.1 mmol/L Chloride Level 91 L 98-107 mmol/L Carbon Dioxide Level 23 20-31 mmol/L Anion Gap 10 5-15 Blood Urea Nitrogen 60 #H 9-23 mg/dL Creatinine 1.07 H 0.550-1.02 mg/dL Glomerular Filtration Rate Calc 52 >90 mL/min BUN/Creatinine Ratio 56.1 H 10.0-20.0 Serum Glucose 117 H 74-106 mg/dL Calcium Level 9.1 8.7-10.4 mg/dL Test 02/07/25 16:23 02/07/25 11:10 02/07/25 04:20 02/06/25 21:23 Range/Units POC Glucose 122 H 85 109 H 70-106 mg/dl White Blood Count 10.4 4.4-10.8 10^3/uL Red Blood Count 3.46 L 4.0-5.20 10^6/uL Hemoglobin 9.9 L 12.2-16.2 g/dL Hematocrit 28.5 L 36.0-46.0 % Mean Corpuscular Volume 82.4 80.0-100.0 fL Mean Corpuscular Hemoglobin 28.5 28.0-32.0 pg Mean Corpuscular Hemoglobin Concent 34.7 32.0-36.0 g/dL Red Cell Distribution Width 18.5 H 11.8-14.3 % Platelet Count 140 140-450 10^3/uL Mean Platelet Volume 8.1 6.9-10.8 fL Neutrophils (%) (Auto) 78.3 37.0-80.0 % Lymphocytes (%) (Auto) 11.5 10.0-50.0 % Monocytes (%) (Auto) 8.8 0.0-12.0 % Eosinophils (%) (Auto) 0.9 0.0-7.0 % Basophils (%) (Auto) 0.5 0.0-2.0 % Neutrophils # (Auto) 8.2 1.6-8.6 10 ^3/uL Lymphocytes # (Auto) 1.2 0.4-5.4 10 ^3/uL Monocytes # (Auto) 0.9 0-1.3 10 ^3/uL Eosinophils # (Auto) 0.1 0-0.8 10 ^3/uL Basophils # (Auto) 0.1 0-0.2 10 ^3/uL Nucleated Red Blood Cells 0.1 % Sodium Level 128 L 136-145 mmol/L Potassium Level 3.1 L 3.5-5.1 mmol/L Chloride Level 93 L 98-107 mmol/L Carbon Dioxide Level 24 20-31 mmol/L Anion Gap 11 5-15 Blood Urea Nitrogen 74 H 9-23 mg/dL Creatinine 1.04 H 0.550-1.02 mg/dL Glomerular Filtration Rate Calc 54 >90 mL/min BUN/Creatinine Ratio 71.2 H 10.0-20.0 Serum Glucose 89 74-106 mg/dL Calcium Level 8.6 L 8.7-10.4 mg/dL Magnesium Level 1.8 1.6-2.6 mg/dL Random Gentamicin Level 5.2 H 0-5 ug/mL Test 02/06/25 17:32 02/06/25 11:37 02/06/25 06:49 02/06/25 04:59 Range/Units POC Glucose 126 H 113 H 91 70-106 mg/dl White Blood Count 10.2 4.4-10.8 10^3/uL Red Blood Count 3.65 L 4.0-5.20 10^6/uL Hemoglobin 10.1 L 12.2-16.2 g/dL Hematocrit 30.1 L 36.0-46.0 % Mean Corpuscular Volume 82.6 80.0-100.0 fL Mean Corpuscular Hemoglobin 27.7 L 28.0-32.0 pg Mean Corpuscular Hemoglobin Concent 33.5 32.0-36.0 g/dL Red Cell Distribution Width 18.2 H 11.8-14.3 % Platelet Count 123 L 140-450 10^3/uL Mean Platelet Volume 8.0 6.9-10.8 fL Neutrophils (%) (Auto) 75.6 37.0-80.0 % Lymphocytes (%) (Auto) 13.2 10.0-50.0 % Monocytes (%) (Auto) 9.9 0.0-12.0 % Eosinophils (%) (Auto) 0.8 0.0-7.0 % Basophils (%) (Auto) 0.5 0.0-2.0 % Neutrophils # (Auto) 7.7 1.6-8.6 10 ^3/uL Lymphocytes # (Auto) 1.4 0.4-5.4 10 ^3/uL Monocytes # (Auto) 1.0 0-1.3 10 ^3/uL Eosinophils # (Auto) 0.1 0-0.8 10 ^3/uL Basophils # (Auto) 0 0-0.2 10 ^3/uL Nucleated Red Blood Cells 0.2 % Sodium Level 128 L 136-145 mmol/L Potassium Level 3.5 3.5-5.1 mmol/L Chloride Level 95 L 98-107 mmol/L Carbon Dioxide Level 23 20-31 mmol/L Anion Gap 10 5-15 Blood Urea Nitrogen 69 H 9-23 mg/dL Creatinine 1.06 H 0.550-1.02 mg/dL Glomerular Filtration Rate Calc 53 >90 mL/min BUN/Creatinine Ratio 65.1 H 10.0-20.0 Serum Glucose 92 74-106 mg/dL Calcium Level 8.4 L 8.7-10.4 mg/dL Magnesium Level 1.9 1.6-2.6 mg/dL Total Bilirubin 0.3 0.2-1.0 mg/dL Aspartate Amino Transferase (AST) 18 13-40 U/L Alanine Aminotransferase (ALT) 10 7-40 U/L Alkaline Phosphatase 91 46-116 U/L Total Protein 4.3 L 5.7-8.2 g/dL Albumin 2.6 L 3.2-4.8 g/dL Random Gentamicin Level 7.3 H 0-5 ug/mL Test 02/05/25 21:37 02/05/25 21:06 02/05/25 17:47 02/05/25 12:24 Range/Units POC Glucose 132 H 117 H 127 H 70-106 mg/dl Potassium Level 2.8 L 3.5-5.1 mmol/L Magnesium Level 2.0 1.6-2.6 mg/dL Test 02/05/25 07:07 02/05/25 05:00 02/05/25 04:51 02/04/25 22:16 Range/Units POC Glucose 110 H 97 70-106 mg/dl Random Gentamicin Level 11.2 H 0-5 ug/mL White Blood Count 11.5 H 4.4-10.8 10^3/uL Red Blood Count 3.77 L 4.0-5.20 10^6/uL Hemoglobin 10.6 L 12.2-16.2 g/dL Hematocrit 31.0 L 36.0-46.0 % Mean Corpuscular Volume 82.2 80.0-100.0 fL Mean Corpuscular Hemoglobin 28.1 28.0-32.0 pg Mean Corpuscular Hemoglobin Concent 34.2 32.0-36.0 g/dL Red Cell Distribution Width 18.2 H 11.8-14.3 % Platelet Count 129 L 140-450 10^3/uL Mean Platelet Volume 8.1 6.9-10.8 fL Neutrophils (%) (Auto) 76.7 37.0-80.0 % Lymphocytes (%) (Auto) 12.6 10.0-50.0 % Monocytes (%) (Auto) 9.8 0.0-12.0 % Eosinophils (%) (Auto) 0.6 0.0-7.0 % Basophils (%) (Auto) 0.3 0.0-2.0 % Neutrophils # (Auto) 8.8 H 1.6-8.6 10 ^3/uL Lymphocytes # (Auto) 1.5 0.4-5.4 10 ^3/uL Monocytes # (Auto) 1.1 0-1.3 10 ^3/uL Eosinophils # (Auto) 0.1 0-0.8 10 ^3/uL Basophils # (Auto) 0 0-0.2 10 ^3/uL Nucleated Red Blood Cells 0.4 % Sodium Level 129 L 136-145 mmol/L Potassium Level 3.2 L 3.5-5.1 mmol/L Chloride Level 94 L 98-107 mmol/L Carbon Dioxide Level 24 20-31 mmol/L Anion Gap 11 5-15 Blood Urea Nitrogen 66 #H 9-23 mg/dL Creatinine 1.06 H 0.550-1.02 mg/dL Glomerular Filtration Rate Calc 53 >90 mL/min BUN/Creatinine Ratio 62.3 H 10.0-20.0 Serum Glucose 90 74-106 mg/dL Calcium Level 8.7 8.7-10.4 mg/dL Magnesium Level 1.7 1.6-2.6 mg/dL Digoxin Level 0.14 L 0.8-2 ng/mL Test 02/04/25 17:04 02/04/25 15:41 02/04/25 11:13 02/04/25 06:48 Range/Units POC Glucose 120 H 121 H 114 H 70-106 mg/dl Sodium Level 126 L 136-145 mmol/L Potassium Level 3.2 L 3.5-5.1 mmol/L Chloride Level 96 L 98-107 mmol/L Carbon Dioxide Level 22 20-31 mmol/L Anion Gap 8 5-15 Blood Urea Nitrogen 36 #H 9-23 mg/dL Creatinine 1.10 H 0.550-1.02 mg/dL Glomerular Filtration Rate Calc 50 >90 mL/min BUN/Creatinine Ratio 32.7 H 10.0-20.0 Serum Glucose 110 H 74-106 mg/dL Calcium Level 8.3 L 8.7-10.4 mg/dL Magnesium Level 2.0 1.6-2.6 mg/dL Total Bilirubin 0.3 0.2-1.0 mg/dL Aspartate Amino Transferase (AST) 19 13-40 U/L Alanine Aminotransferase (ALT) 11 7-40 U/L Alkaline Phosphatase 94 46-116 U/L Total Protein 4.4 L 5.7-8.2 g/dL Albumin 2.6 L 3.2-4.8 g/dL Test 02/04/25 04:42 02/03/25 22:54 02/03/25 21:00 02/03/25 17:04 Range/Units White Blood Count 10.0 # 4.4-10.8 10^3/uL Red Blood Count 3.75 L 4.0-5.20 10^6/uL Hemoglobin 10.4 L 12.2-16.2 g/dL Hematocrit 31.3 #L 36.0-46.0 % Mean Corpuscular Volume 83.5 80.0-100.0 fL Mean Corpuscular Hemoglobin 27.7 L 28.0-32.0 pg Mean Corpuscular Hemoglobin Concent 33.3 32.0-36.0 g/dL Red Cell Distribution Width 18.3 H 11.8-14.3 % Platelet Count 106 L 140-450 10^3/uL Mean Platelet Volume 8.0 6.9-10.8 fL Neutrophils (%) (Auto) 75.6 37.0-80.0 % Lymphocytes (%) (Auto) 12.5 10.0-50.0 % Monocytes (%) (Auto) 10.9 0.0-12.0 % Eosinophils (%) (Auto) 0.7 0.0-7.0 % Basophils (%) (Auto) 0.3 0.0-2.0 % Neutrophils # (Auto) 7.6 1.6-8.6 10 ^3/uL Lymphocytes # (Auto) 1.3 0.4-5.4 10 ^3/uL Monocytes # (Auto) 1.1 0-1.3 10 ^3/uL Eosinophils # (Auto) 0.1 0-0.8 10 ^3/uL Basophils # (Auto) 0 0-0.2 10 ^3/uL Nucleated Red Blood Cells 0.3 % Sodium Level 127 L 136-145 mmol/L Potassium Level 3.0 L 3.5-5.1 mmol/L Chloride Level 94 L 98-107 mmol/L Carbon Dioxide Level 23 20-31 mmol/L Anion Gap 10 5-15 Blood Urea Nitrogen 47 H 9-23 mg/dL Creatinine 1.07 H 0.550-1.02 mg/dL Glomerular Filtration Rate Calc 52 >90 mL/min BUN/Creatinine Ratio 43.9 H 10.0-20.0 Serum Glucose 92 74-106 mg/dL Calcium Level 8.2 L 8.7-10.4 mg/dL Magnesium Level 1.6 1.6-2.6 mg/dL Total Bilirubin 0.3 0.2-1.0 mg/dL Aspartate Amino Transferase (AST) 16 13-40 U/L Alanine Aminotransferase (ALT) 9 7-40 U/L Alkaline Phosphatase 107 46-116 U/L Total Protein 4.3 L 5.7-8.2 g/dL Albumin 2.3 L 3.2-4.8 g/dL POC Glucose 121 H 124 H 70-106 mg/dl Gentamicin Level Trough 7.5 *H 0.5-1.5 ug/mL Test 02/03/25 05:43 02/03/25 05:03 02/02/25 03:45 02/01/25 12:13 Range/Units White Blood Count 13.5 H 11.9 H 4.4-10.8 10^3/uL Red Blood Count 4.22 4.18 4.0-5.20 10^6/uL Hemoglobin 11.7 L 12.0 L 12.2-16.2 g/dL Hematocrit 35.3 L 35.9 L 36.0-46.0 % Mean Corpuscular Volume 83.6 85.9 80.0-100.0 fL Mean Corpuscular Hemoglobin 27.7 L 28.6 28.0-32.0 pg Mean Corpuscular Hemoglobin Concent 33.2 33.4 32.0-36.0 g/dL Red Cell Distribution Width 18.2 H 18.3 H 11.8-14.3 % Platelet Count 127 L 143 140-450 10^3/uL Mean Platelet Volume 7.9 7.8 6.9-10.8 fL Neutrophils (%) (Auto) 78.1 79.6 37.0-80.0 % Lymphocytes (%) (Auto) 9.5 L 10.4 10.0-50.0 % Monocytes (%) (Auto) 11.6 9.1 0.0-12.0 % Eosinophils (%) (Auto) 0.6 0.6 0.0-7.0 % Basophils (%) (Auto) 0.2 0.3 0.0-2.0 % Neutrophils # (Auto) 10.5 H 9.5 H 1.6-8.6 10 ^3/uL Lymphocytes # (Auto) 1.3 1.2 0.4-5.4 10 ^3/uL Monocytes # (Auto) 1.6 H 1.1 0-1.3 10 ^3/uL Eosinophils # (Auto) 0.1 0.1 0-0.8 10 ^3/uL Basophils # (Auto) 0 0 0-0.2 10 ^3/uL Nucleated Red Blood Cells 0.2 0.2 % Sodium Level 128 L 130 L 136-145 mmol/L Potassium Level 3.9 3.7 3.5-5.1 mmol/L Chloride Level 96 L 98 98-107 mmol/L Carbon Dioxide Level 21 18 L 20-31 mmol/L Anion Gap 11 14 5-15 Blood Urea Nitrogen 41 H 40 #H 9-23 mg/dL Creatinine 1.05 H 1.04 H 0.550-1.02 mg/dL Glomerular Filtration Rate Calc 53 54 >90 mL/min BUN/Creatinine Ratio 39.0 H 38.5 H 10.0-20.0 Serum Glucose 98 63 L 74-106 mg/dL Calcium Level 8.5 L 8.8 8.7-10.4 mg/dL Magnesium Level 1.8 1.8 1.6-2.6 mg/dL Total Bilirubin 0.3 0.2 0.2-1.0 mg/dL Aspartate Amino Transferase (AST) 19 20 13-40 U/L Alanine Aminotransferase (ALT) 9 < 9 7-40 U/L Alkaline Phosphatase 102 104 46-116 U/L Total Protein 4.7 L 4.8 L 5.7-8.2 g/dL Albumin 2.4 L 2.6 L 3.2-4.8 g/dL Prothrombin Time 11.2 9.3-11.8 sec Prothrombin Time INR 1.06 0.9-1.15 Activated Partial Thromboplast Time 35.2 H 24.5-34.5 SEC Blood Gas Specimen Type Arterial Blood Gas Sample Site Left radial Blood Gas Patient Temperature 37.0 Arterial Blood Date Drawn [id number] Arterial Blood pH 7.403 7.350-7.450 Arterial Blood Partial Pressure CO2 33.8 32.0-45.0 mmHg Arterial Blood Partial Pressure O2 86.9 83.0-108.0 mmHg Arterial Blood HCO3 20.6 L 21.0-28.0 mmol/L Arterial Blood Oxygen Saturation 96.9 94.0-98.0 % Arterial Blood Base Excess -3.4 L -2.0-3.0 mmol/L Arterial Blood Oxyhemoglobin 95.4 94.0-98.0 % Arterial Blood Carboxyhemoglobin 1.0 0.5-1.5 % Arterial Blood Methemoglobin 0.5 0.0-1.5 % [place] Test Yes Blood Gas Total Hemoglobin 12.70 12.0-16.0 g/dL Blood Gas Modality Room air FiO2 % 21.0 Test 02/01/25 08:19 01/31/25 16:30 01/31/25 13:09 01/31/25 11:10 Range/Units White Blood Count 14.5 H 13.3 #H 4.4-10.8 10^3/uL Red Blood Count 4.61 4.31 4.0-5.20 10^6/uL Hemoglobin 13.1 12.2 12.2-16.2 g/dL Hematocrit 39.7 36.5 36.0-46.0 % Mean Corpuscular Volume 86.1 84.6 80.0-100.0 fL Mean Corpuscular Hemoglobin 28.4 28.2 28.0-32.0 pg Mean Corpuscular Hemoglobin Concent 33.0 33.3 32.0-36.0 g/dL Red Cell Distribution Width 18.7 H 18.3 H 11.8-14.3 % Platelet Count 139 L 187 140-450 10^3/uL Mean Platelet Volume 7.7 8.2 6.9-10.8 fL Neutrophils (%) (Auto) 81.8 H 86.2 H 37.0-80.0 % Lymphocytes (%) (Auto) 8.3 L 5.7 L 10.0-50.0 % Monocytes (%) (Auto) 9.4 7.4 0.0-12.0 % Eosinophils (%) (Auto) 0.2 0.3 0.0-7.0 % Basophils (%) (Auto) 0.3 0.4 0.0-2.0 % Neutrophils # (Auto) 11.8 H 11.5 H 1.6-8.6 10 ^3/uL Lymphocytes # (Auto) 1.2 0.8 0.4-5.4 10 ^3/uL Monocytes # (Auto) 1.4 H 1.0 0-1.3 10 ^3/uL Eosinophils # (Auto) 0 0 0-0.8 10 ^3/uL Basophils # (Auto) 0 0.1 0-0.2 10 ^3/uL Nucleated Red Blood Cells 0.2 0.1 % Sodium Level 129 L 128 L 136-145 mmol/L Potassium Level 4.0 4.2 3.5-5.1 mmol/L Chloride Level 96 L 94 L 98-107 mmol/L Carbon Dioxide Level 22 25 20-31 mmol/L Anion Gap 11 9 5-15 Blood Urea Nitrogen 65 H 69 H 9-23 mg/dL Creatinine 1.03 H 1.11 H 0.550-1.02 mg/dL Glomerular Filtration Rate Calc 55 50 >90 mL/min BUN/Creatinine Ratio 63.1 H 62.2 H 10.0-20.0 Serum Glucose 68 L 72 L 74-106 mg/dL Calcium Level 8.7 8.8 8.7-10.4 mg/dL Total Bilirubin 0.3 0.3 0.2-1.0 mg/dL Aspartate Amino Transferase (AST) 27 22 13-40 U/L Alanine Aminotransferase (ALT) 9 < 9 7-40 U/L Alkaline Phosphatase 114 121 H 46-116 U/L Total Protein 4.6 L 4.5 L 5.7-8.2 g/dL Albumin 2.5 L 2.5 L 3.2-4.8 g/dL Urine Color Colorless Yellow Urine Clarity Turbid H Clear Urine pH 6.0 5.0-9.0 Urine Specific [place] 1.015 1.001-1.035 Urine Protein 1+ H Negative Urine Ketones Trace Negative Urine Blood 1+ H Negative /uL Urine Nitrite Negative Negative Urine Bilirubin Negative Negative Urine Urobilinogen Normal Negative mg/dL Urine Leukocyte Esterase 3+ Negative /uL Urine RBC 9 0 - 4 /hpf Urine WBC Clumps Present None Seen /hpf Urine Microscopic WBC 416 H 0-5 /HPF Urine Squamous Epithelial Cells Few <5 /hpf Urine Bacteria Few H None Seen /hpf Urine Hyaline Casts Few 0 - 2 /lpf Urine Mucus Few None Seen Urine Yeast (Budding) Moderate None Seen /hpf Urine Glucose Normal Normal mg/dL POC Glucose 96 70-106 mg/dl Prothrombin Time 12.0 H 9.3-11.8 sec Prothrombin Time INR 1.15 0.9-1.15 Activated Partial Thromboplast Time 41.8 H 24.5-34.5 SEC Lactic Acid Level 0.7 0.4-2.0 mmol/L Magnesium Level 1.8 1.6-2.6 mg/dL Troponin I High Sensitivity 7 </=34 ng/L Test 01/31/25 11:02 Range/Units POC Glucose 69 L 70-106 mg/dl Microbiology Date/Time Source Procedure Growth Status 02/08/25 22:15 Urine - Hook Port Urine Culture - Final Enterococcus faecalis Complete 02/03/25 00:50 Nose MRSA Screen - Final Complete Assessment Acute kidney injury hemodynamic mediated etiology Hyponatremia in the setting of anasarca Hypokalemia AFib acute diastolic heart failure Septic Shock [place] kidney history of ureteral stent Status post TAVR Hypertension History of DVT Hypokalemia Recommendations Continue Lasix drip She is currently on Levophed Significantly volume overloaded on physical exam---continue dopamine for now however in the event of arrhythmia Hold dopamine Discussed with son bedside We will follow closely Replace potassium p.r.n. Reviewed vital signs, lab work, imaging studies, medications, microbiology, other physician recommendations Total time spent 80 minutes More than 50% of the time spent providing direct [id number] care . Thank you for allowing me to participate in the care of your patient. Plan discussed with: Patient SOCRATES POZO MD Feb 10, 2025 21:18
--- NOTE | 2025-02-10 23:37 | DVHPN2 ---
[facility] DOS: 02/10/25 Patient seen and examined at bedside. Breathing comfortably on room air. Overnight events reviewed. HPI: An 79-year-old woman with PMHx of CHF, chronic kidney disease, diabetes mellitus, hypertension, AFib, thyroid disease and anemia who presented to ED on 02/01/25 for evaluation of altered mental status. Patient was recently discharged after being treated for sepsis. Patient was acting lethargic and altered on day prior to presentation, therefore family brought her in for further evaluation. Patient was lethargic, oriented times two on day of presentation. No unilateral weakness noted or slurred speech. No cardiac or respiratory symptoms. Patient was admitted for further care. Pulmonary consultation is requested for evaluation and management d/t pleural effusions. Past Medical History CHF, chronic kidney disease, diabetes mellitus, hypertension, thyroid, anemia, AFib Past Surgical History Tonsillectomy Family History Noncontributory Social History No smoking, alcohol or illicit drug use. Medications: Reviewed. Allergies: Penicillins (Unverified Allergy, Severe, 03/16/15) Sulfa Antibiotics (Unverified Allergy, Severe, 03/16/15) Morphine (Verified Allergy, Intermediate, ALTERED, 01/31/18) Ceftriaxone (Verified Allergy, Unknown, 01/31/18) Reviewed: Care Plan, H&P, Labs, Medications, Previous Orders, Radiology Changes from previous H/P or p: No Changes Objective Vitals Vital Signs Date Time Temp Pulse Resp B/P (MAP) Pulse Ox O2 Delivery O2 Flow Rate FiO2 02/10/25 22:00 77 02/10/25 22:00 12 97 Room Air* 0 21 02/10/25 18:46 149/54 (85) 02/10/25 12:03 98.0 98.0 Intake/Output Intake and Output 02/10/25 06:59 Intake Total 1632.363 ml Output Total 1350 ml Balance 282.363 ml Intake Oral 345 ml IV Total 1287.363 ml Output Urine Total 1350 ml # Bowel Movements 1 General Appearance: Alert, Other (Disoriented) HEENT: Atraumatic, PERRLA, EOMI Lungs: Other (Bilateral crackles. Decreased air movement bilaterally) Cardiovascular: Regular rate, Normal S1, Normal S2 Abdomen: Normal bowel sounds, Soft, No tenderness Musculoskeletal: Normal sensory function, Normal motor function Extremities: Other (2+ edema bilaterally in the lower extremities) Neuro: Strength at 5/5 X4 ext, Cranial nerves 3-12 NL Skin: Significant Lesion, Dry, Intact, Warm Psych/Mental Status: Mental status NL, Mood NL Medications Current Medications Medications Dose Ordered Sig/Taran Route Start Time Stop Time Status Last Admin Dose Admin Ondansetron HCl 4 mg Q4HP PRN IV 01/31/25 19:30 Enoxaparin Sodium 40 mg DAILY SC 02/01/25 10:00 02/10/25 09:43 40 MG Acetaminophen 650 mg Q6HP PRN PO 01/31/25 19:30 02/10/25 18:08 650 MG Nitroglycerin 0.4 mg Q5MINP PRN SL 01/31/25 19:30 Carbidopa/Levodopa 2 tab HS PO 01/31/25 22:00 02/09/25 20:52 2 TAB Albuterol 2.5 mg Q6HPRN PRN NEB 01/31/25 19:30 02/10/25 19:31 2.5 MG Acetaminophen/ Hydrocodone Bitart 1 tab Q6HPRN PRN PO 02/01/25 03:45 02/10/25 06:34 1 TAB Digoxin 125 mcg DAILY IV 02/02/25 10:00 02/10/25 09:44 125 MCG Diagnostic Test (Pha) 1 strip ACHS 02/03/25 17:00 02/10/25 21:52 1 STRIP Insulin Human Regular ACHS SC 02/03/25 17:00 Dextrose 50 ml UD PRN IV 02/03/25 16:45 Levothyroxine Sodium 100 mcg QAM@0600 PO 02/08/25 06:00 02/10/25 06:29 100 MCG Patient Own Medication 160 mg DAILY IV 02/09/25 10:00 UNV Patient Own Medication 1 g Q8H IV 02/08/25 12:30 UNV Ceftolozane/ Tazobactam 3 gm/ Dextrose 100 ml @ 100 mls/hr Q8HR IV 02/08/25 14:00 02/10/25 21:52 100 MLS/HR Enteral Nutritional Formula 240 ml TIDWM PO 02/09/25 12:00 02/10/25 18:00 240 ML Norepinephrine Bitartrate 250 ml @ 3.75 mls/hr Q24H IV 02/09/25 12:45 02/10/25 14:05 18.75 MLS/HR Furosemide 100 mg/ Sodium Chloride 110 ml @ 11 mls/hr Q10H IV 02/09/25 14:30 02/10/25 14:05 11 MLS/HR Dopamine HCl/ Dextrose 250 ml @ 21.694 mls/ hr [id number] IV 02/09/25 15:00 02/10/25 18:09 21.694 MLS/HR Laboratory Results Laboratory Tests 02/09/25 05:10 02/10/25 04:44 Chemistry Test 02/10/25 04:44 Calcium Level 9.1 mg/dL (8.7-10.4) Magnesium Level 1.9 mg/dL (1.6-2.6) Urinalysis Test 01/31/25 16:30 02/08/25 11:45 Urine Hyaline Casts Few /lpf (0 - 2) Urine Mucus Few (None Seen) Urine Color Yellow (Yellow) Urine Clarity Cloudy (Clear) H Urine pH 5.5 (5.0-9.0) Urine Specific [place] 1.013 (1.001-1.035) Urine Protein 1+ (Negative) H Urine Ketones Negative (Negative) Urine Blood 1+ /uL (Negative) H Urine Nitrite Negative (Negative) Urine Bilirubin Negative (Negative) Urine Urobilinogen Normal mg/dL (Negative) Urine Leukocyte Esterase 3+ /uL (Negative) Urine RBC 110 /hpf (0 - 4) Urine WBC Clumps Present /hpf (None Seen) Urine Microscopic WBC 1269 /HPF (0-5) H Urine Squamous Epithelial Cells Few /hpf (<5) Urine Bacteria Few /hpf (None Seen) H Urine Yeast (Budding) Loaded /hpf (None Seen) Urine Glucose Normal mg/dL (Normal) Microbiology Microbiology Date/Time Source Procedure Growth Status 02/08/25 22:15 Urine - Hook Port Urine Culture - Preliminary Resulted 02/08/25 20:11 Blood Blood Culture - Preliminary NO GROWTH AFTER 48 HOURS OF INCUBATION. Resulted 02/03/25 00:50 Nose MRSA Screen - Final Complete Assessment/Plan Assessment/Plan Impression: Acute metabolic encephalopathy Septic shock due to UTI Morbid obesity, BMI 42.3 Snoring, likely ARPAN Urinary tract infection Congestive heart failure (HFpEF) Hyponatremia Pleural effusions Atelectasis Plan: On room air Supplemental oxygen PRN Titrate to keep O2 sats above 92%. Bronchodilators PRN. Continue antibiotics Incentive spirometry Pressors- on Levophed for hemodynamic support Titrate to keep mean arterial pressure greater than 65 mmHg. On dopamine drip. Follow up Cardiology recs Diurese to euvolemia w/ Lasix drip Monitor renal function. Monitor electrolytes. Supplement as necessary. Monitor sodium Monitor ins and outs. DVT prophylaxis - Lovenox. Prognosis: Poor given patient's multiple co-morbidities. Condition: Critical Rest of plan per hospitalist and other consultants. A total of 35 minutes of critical care time was spent reviewing the patient record, examining the patient, making a diagnostic and therapeutic plan, discussing this plan with the medical personnel, following up on diagnostic studies and following the patient for clinical stability excluding any and all procedures. At least 50% of this time was spent in direct, [id number] contact. Thank you, Dr. Castaneda, for allowing me to participate in this patient's care. Further recommendations will depend on the patient's clinical course. Please do not hesitate to contact me if you have any questions or concerns. This medical document was created using an electronic medical record system with [employer] dictation system. Although these documentations are being carefully reviewed, there may still be some phonetic and typographical changes. The errors are purely typographical, due to imperfection on the software program, and do not reflect any compromise in the patient's medical care. Plan discussed with: Patient, Other (RN) Date of Service: Feb 10, 2025 Billing Provider: BENITO WILLARD MD Common Visit Codes: [id number] INP/OBS CARE (HIGH) BENITO WILLARD MD Feb 10, 2025 23:37
[2025-02-11] VITALS (107 sets, daily range): BP systolic 11–161; BP diastolic 19–126; PULSE 73–114; RESP 10–34; TEMP 97.3–98.3; O2SAT 95–100
[2025-02-11 05:04] LABS: Anion Gap 12 (5-15); Carbon Dioxide 22 mmol/L (20-31)
[2025-02-11 05:05] LABS: Calcium 9.1 mg/dL (8.7-10.4)
[2025-02-11 05:10] LABS: BUN/Creatinine Ratio 58.9 (10.0-20.0); Glucose 105 mg/dL (74-106); Magnesium 1.7 mg/dL (1.6-2.6)
[2025-02-11 05:21] LABS: Blood Urea Nitrogen 63 mg/dL (9-23); Chloride 96 mmol/L (98-107); Potassium 3.3 mmol/L (3.5-5.1); Sodium 130 mmol/L (136-145)
[2025-02-11] MEDS: POTASSIUM CHL 20MEQ/100ML 100 ML IV SCH (06:13)
[2025-02-11] MEDS: DEXTROSE (50%) 50ML SYRG IV PRN (06:54)
[2025-02-11] MEDS: MAGNESIUM SULFATE 1GM/100ML 100 ML IV SCH (10:09)
[2025-02-11] MEDS: ALBUMIN 25% 100 ML IV ONE ×2 (13:54→14:55)
--- NOTE | 2025-02-11 14:19 | DVHPN2 ---
Subjective Alert and oriented in no distress She is still on Levophed and dobutamine drip She is still on Lasix drip Reviewed: Care Plan, H&P, Labs, Medications, Previous Orders, Radiology Changes from previous H/P or p: Changes Objective Vitals Vital Signs Date Time Temp Pulse Resp B/P (MAP) Pulse Ox O2 Delivery O2 Flow Rate FiO2 02/11/25 13:07 80 16 100 02/11/25 13:01 Room Air 0.0 02/11/25 13:01 21 02/11/25 12:04 97.6 130/106 (114) 97.6 Intake/Output Intake and Output 02/11/25 07:00 Intake Total 2453.587 ml Output Total 1300 ml Balance 1153.587 ml Intake Oral 900 ml IV Total 1553.587 ml Output Urine Total 1300 ml General Appearance: Alert, Other (Disoriented) HEENT: Atraumatic, PERRLA, EOMI Lungs: Other (Bilateral crackles. Decreased air movement bilaterally) Cardiovascular: Regular rate, Normal S1, Normal S2 Abdomen: Normal bowel sounds, Soft, No tenderness Musculoskeletal: Normal sensory function, Normal motor function Extremities: Other (2+ edema bilaterally in the lower extremities) Neuro: Strength at 5/5 X4 ext, Cranial nerves 3-12 NL Skin: Significant Lesion, Dry, Intact, Warm Psych/Mental Status: Mental status NL, Mood NL Medications Current Medications Medications Dose Ordered Sig/Taran Route Start Time Stop Time Status Last Admin Dose Admin Ondansetron HCl 4 mg Q4HP PRN IV 01/31/25 19:30 Enoxaparin Sodium 40 mg DAILY SC 02/01/25 10:00 02/11/25 09:32 40 MG Acetaminophen 650 mg Q6HP PRN PO 01/31/25 19:30 02/11/25 11:22 650 MG Nitroglycerin 0.4 mg Q5MINP PRN SL 01/31/25 19:30 Carbidopa/Levodopa 2 tab HS PO 01/31/25 22:00 02/09/25 20:52 2 TAB Albuterol 2.5 mg Q6HPRN PRN NEB 01/31/25 19:30 02/11/25 13:01 2.5 MG Acetaminophen/ Hydrocodone Bitart 1 tab Q6HPRN PRN PO 02/01/25 03:45 02/10/25 06:34 1 TAB Digoxin 125 mcg DAILY IV 02/02/25 10:00 02/11/25 09:32 125 MCG Diagnostic Test (Pha) 1 strip ACHS 02/03/25 17:00 02/11/25 11:32 1 STRIP Insulin Human Regular ACHS SC 02/03/25 17:00 Dextrose 50 ml UD PRN IV 02/03/25 16:45 02/11/25 06:54 50 ML Levothyroxine Sodium 100 mcg QAM@0600 PO 02/08/25 06:00 02/11/25 06:04 100 MCG Patient Own Medication 160 mg DAILY IV 02/09/25 10:00 UNV Patient Own Medication 1 g Q8H IV 02/08/25 12:30 UNV Ceftolozane/ Tazobactam 3 gm/ Dextrose 100 ml @ 100 mls/hr Q8HR IV 02/08/25 14:00 02/11/25 14:11 100 MLS/HR Enteral Nutritional Formula 240 ml TIDWM PO 02/09/25 12:00 02/11/25 08:00 240 ML Norepinephrine Bitartrate 250 ml @ 3.75 mls/hr Q24H IV 02/09/25 12:45 02/11/25 04:03 18.75 MLS/HR Furosemide 100 mg/ Sodium Chloride 110 ml @ 11 mls/hr Q10H IV 02/09/25 14:30 02/11/25 10:08 11 MLS/HR Dopamine HCl/ Dextrose 250 ml @ 21.694 mls/ hr [id number] IV 02/09/25 15:00 02/11/25 06:03 21.694 MLS/HR Laboratory Results Laboratory Tests 02/09/25 05:10 02/11/25 04:33 Chemistry Test 02/11/25 04:33 Calcium Level 9.1 mg/dL (8.7-10.4) Magnesium Level 1.7 mg/dL (1.6-2.6) Urinalysis Test 01/31/25 16:30 02/08/25 11:45 Urine Hyaline Casts Few /lpf (0 - 2) Urine Mucus Few (None Seen) Urine Color Yellow (Yellow) Urine Clarity Cloudy (Clear) H Urine pH 5.5 (5.0-9.0) Urine Specific [place] 1.013 (1.001-1.035) Urine Protein 1+ (Negative) H Urine Ketones Negative (Negative) Urine Blood 1+ /uL (Negative) H Urine Nitrite Negative (Negative) Urine Bilirubin Negative (Negative) Urine Urobilinogen Normal mg/dL (Negative) Urine Leukocyte Esterase 3+ /uL (Negative) Urine RBC 110 /hpf (0 - 4) Urine WBC Clumps Present /hpf (None Seen) Urine Microscopic WBC 1269 /HPF (0-5) H Urine Squamous Epithelial Cells Few /hpf (<5) Urine Bacteria Few /hpf (None Seen) H Urine Yeast (Budding) Loaded /hpf (None Seen) Urine Glucose Normal mg/dL (Normal) Microbiology Microbiology Date/Time Source Procedure Growth Status 02/08/25 22:15 Urine - Hook Port Urine Culture - Final Enterococcus faecalis Complete 02/08/25 20:11 Blood Blood Culture - Preliminary NO GROWTH AFTER 48 HOURS OF INCUBATION. Resulted 02/03/25 00:50 Nose MRSA Screen - Final Complete Assessment/Plan Assessment/Plan Acute metabolic encephalopathy Septic shock due to UTI UTI Recent sepsis with a wound infection due to Pseudomonas aeruginosa MDRO Morbid obesity Bed-bound Type 2 diabetes Acute kidney injury Left hydronephrosis [place] kidney Status post ureteral stent Chronic anemia Hyponatremia Atrial fibrillation Heart failure with preserved ejection fraction Plan Broad-spectrum antibiotics: Levofloxacin and gentamicin Vasopressors as needed, norepinephrine drip Cardiology consult Lasix drip per Dr. Cifuentes Full code Discussed with the daughter at the bedside Advance directives discussed for 20 minute 02/03/2025: Continue IV antibiotics Vasopressors Lasix Central line to be done by emergency room physician Cardiology consultation Dr. Cifuentes Monitor closely 02/04/2025: Replace magnesium and potassium Continue IV antibiotics Infectious Disease consultation Vasopressors as needed Lasix drip Monitor closely The rest of the management will depend on the hospital course 02/05/25: IV antibiotics: Gentamicin and levofloxacin Taper Levophed off as tolerated Lasix Replace K+ and Mg 02/06/2025: Continue the current management Tapered off the Levophed as tolerated Continue Lasix Replace potassium magnesium as needed 02/07/2025: Taper off the Levophed drip as tolerated Downgrade to telemetry once she is off the Levophed Discontinue the gentamicin Replace magnesium and potassium as needed Discharge planning once she is off the Levophed drip 02/08/2025: Levophed and dopamine drip Replace potassium and magnesium as needed Restarted antibiotics per Dr. Cifuentes Monitor closely 02/09/2025: Start Lasix 40 mg IV twice a day Continue Levophed and dopamine drip as needed IV antibiotics per Infectious Disease Dr. Adler Monitor closely 02/10/25: Continue Lasix drip Levo Dopamine IV antibiotics 02/11/2025: Continue Levophed and dopamine drips IV antibiotics Lasix drip Replace potassium and magnesium Monitor closely Plan discussed with: Patient Date of Service: Feb 11, 2025 Billing Provider: FALGUNI CM MD Common Visit Codes: [id number] INP/OBS CARE(HIGH) FALGUNI CM MD Feb 11, 2025 14:19
--- NOTE | 2025-02-11 18:44 | DVHPN2 ---
Progress Note Date Seen: Feb 11, 2025 Medical Necessity Reason Pt with a Central, PICC or Fol: Yes The following are medically ne: Hook Catheter Subjective Patient reports: No new complaints Review of Systems: Deferred Objective vital signs Vital Sign Date Time Temp Pulse Resp B/P (MAP) Pulse Ox O2 Delivery O2 Flow Rate FiO2 02/11/25 18:00 77 02/11/25 18:00 13 95 Room Air* 0 21 02/11/25 17:01 87/40 (56) 02/11/25 16:31 97.6 97.6 Total Intake and Output 02/10/25 02/10/25 02/11/25 15:00 23:00 07:00 Intake Total 519.052 ml 1111.552 ml 822.983 ml Output Total 500 ml 800 ml Balance 519.052 ml 611.552 ml 22.983 ml medications Current Medications Medications Dose Ordered Sig/Taran Route Start Time Stop Time Status Last Admin Dose Admin Ondansetron HCl 4 mg Q4HP PRN IV 01/31/25 19:30 Enoxaparin Sodium 40 mg DAILY SC 02/01/25 10:00 02/11/25 09:32 Acetaminophen 650 mg Q6HP PRN PO 01/31/25 19:30 02/11/25 11:22 Nitroglycerin 0.4 mg Q5MINP PRN SL 01/31/25 19:30 Carbidopa/Levodopa 2 tab HS PO 01/31/25 22:00 02/09/25 20:52 Albuterol 2.5 mg Q6HPRN PRN NEB 01/31/25 19:30 02/11/25 13:01 Acetaminophen/ Hydrocodone Bitart 1 tab Q6HPRN PRN PO 02/01/25 03:45 02/10/25 06:34 Digoxin 125 mcg DAILY IV 02/02/25 10:00 02/11/25 09:32 Diagnostic Test (Pha) 1 strip ACHS 02/03/25 17:00 02/11/25 17:00 Insulin Human Regular ACHS SC 02/03/25 17:00 Dextrose 50 ml UD PRN IV 02/03/25 16:45 02/11/25 06:54 Levothyroxine Sodium 100 mcg QAM@0600 PO 02/08/25 06:00 02/11/25 06:04 Patient Own Medication 160 mg DAILY IV 02/09/25 10:00 UNV Patient Own Medication 1 g Q8H IV 02/08/25 12:30 UNV Ceftolozane/ Tazobactam 3 gm/ Dextrose 100 ml @ 100 mls/hr Q8HR IV 02/08/25 14:00 02/11/25 14:11 Enteral Nutritional Formula 240 ml TIDWM PO 02/09/25 12:00 02/11/25 08:00 Norepinephrine Bitartrate 250 ml @ 3.75 mls/hr Q24H IV 02/09/25 12:45 02/11/25 04:03 Betamethasone Dipropion Augmented 1 applic DAILY TOP 02/12/25 10:00 Clotrimazole 1 applic DAILY TOP 02/12/25 10:00 Patient Own Medication 1 DAILY TOP 02/12/25 10:00 Dopamine HCl/ Dextrose 250 ml @ 10.847 mls/ hr Q23H3M IV 02/11/25 18:30 Bumetanide 12.5 mg/Miscellaneous 50 ml @ 2 mls/hr Q24H IV 02/11/25 18:30 UNV Examination: GENERAL:Abnormal, LUNGS:Abnormal, CVS:Abnormal, MSK:Abnormal, SKIN:Abnormal laboratory and microbiology Laboratory Tests 02/11/25 04:33 02/09/25 05:10 Test 02/11/25 04:33 Range/Units Serum Glucose 105 74-106 mg/dL Microbiology Date/Time Source Procedure Growth Status 02/08/25 22:15 Urine - Hook Port Urine Culture - Final Enterococcus faecalis Complete 02/08/25 20:11 Blood Blood Culture - Preliminary NO GROWTH AFTER 48 HOURS OF INCUBATION. Resulted 02/03/25 00:50 Nose MRSA Screen - Final Complete Problem List/Assessment/Plan Problem List/Assessment/Plan Acute kidney injury hemodynamic mediated etiology Hyponatremia in the setting of anasarca Hypokalemia AFib acute diastolic heart failure Septic Shock [place] kidney history of ureteral stent Status post TAVR Hypertension History of DVT Hypokalemia Recommendations Switch Lasix drip to Bumex drip She is currently on Levophed Significantly volume overloaded on physical exam---I will reduce dopamine rate given episodes of AFib Discussed with son bedside We will follow closely Replace potassium p.r.n. Plan discussed with: Patient, Son My Orders My Orders Orders - SOCRATES POZO MD Procedure Category Date Status Time Dopamine 1600mcg/Ml PHA 02/11/25 In Process D5W 18:30 Give Un-Diluted PHA 02/11/25 In Process (Gi... W/Bumetanide 18:30 Dietary Evaluation Review Comments: 1. CCHO-60 2 gNa diet w 45g proein restriction 2. Try Devin for wound healing 3. Wt management 4. F/U with nephrology and updated lab values Expected Outcomes/Goals: Less uremic syndrome, controlled DM Critical Care Time (mins): 36 SOCRATES POZO MD Feb 11, 2025 18:44
[2025-02-11] MEDS: DOPamine 1600MCG/ML D5W 250 ML IV SCH (19:00)
[2025-02-11] MEDS: BUMETANIDE INJECTION 12.5 MG in GIVE UN-DILUTED 0 ML IV SCH (19:58)
[2025-02-12] VITALS (102 sets, daily range): BP systolic 58–147; BP diastolic 15–117; PULSE 68–108; RESP 11–38; TEMP 94.7–98.3; O2SAT 94–100
--- NOTE | 2025-02-12 03:07 | DVH ---
CHEST RADIOGRAPH Indication: CONGESTED/PER PROTOCOL Technique: Single frontal view of the chest was obtained COMPARISON: XY CHEST PORTABLE on DOS: 02/08/25, XY CHEST PORTABLE on DOS: 01/31/25, XY CHEST XRAY 1 VIE W on DOS: 01/16/25, XY CHEST PORTABLE on DOS: 01/04/25, XY CHEST PORTABLE on DOS: 12/29/24 FINDINGS: Lines and Tubes: Left MediPort unchanged. Lungs: Mild Interval progression in small bilateral pleural effusions and diffuse increased prominenc e of the pulmonary vasculature. No pneumothorax. Cardiomediastinal contours: Cardiomegaly. Bones: Unremarkable IMPRESSION: 1. Interval progression in small bilateral pleural effusions and diffuse increased prominence of the pulmonary vasculature. 2. Cardiomegaly. 3. MediPort.
[2025-02-12 06:01] LABS: Anion Gap 12 (5-15); Calcium 9.1 mg/dL (8.7-10.4); Carbon Dioxide 21 mmol/L (20-31)
[2025-02-12 06:07] LABS: BUN/Creatinine Ratio 52.6 (10.0-20.0); Glucose 86 mg/dL (74-106)
[2025-02-12 06:10] LABS: Blood Urea Nitrogen 60 mg/dL (9-23); Chloride 96 mmol/L (98-107); Potassium 3.3 mmol/L (3.5-5.1); Sodium 129 mmol/L (136-145)
[2025-02-12] MEDS: POTASSIUM CHL 20MEQ/100ML 100 ML IV SCH (07:20)
[2025-02-12] MEDS: ONDANSETRON HCL 4 MG/2 ML VIAL IV PRN (08:02)
--- NOTE | 2025-02-12 08:27 | DVHPN2 ---
[facility] DOS: 02/11/25 Patient seen and examined at bedside. Breathing comfortably on room air. Overnight events reviewed. HPI: An 79-year-old woman with PMHx of CHF, chronic kidney disease, diabetes mellitus, hypertension, AFib, thyroid disease and anemia who presented to ED on 02/01/25 for evaluation of altered mental status. Patient was recently discharged after being treated for sepsis. Patient was acting lethargic and altered on day prior to presentation, therefore family brought her in for further evaluation. Patient was lethargic, oriented times two on day of presentation. No unilateral weakness noted or slurred speech. No cardiac or respiratory symptoms. Patient was admitted for further care. Pulmonary consultation is requested for evaluation and management d/t pleural effusions. Past Medical History CHF, chronic kidney disease, diabetes mellitus, hypertension, thyroid, anemia, AFib Past Surgical History Tonsillectomy Family History Noncontributory Social History No smoking, alcohol or illicit drug use. Medications: Reviewed. Allergies: Penicillins (Unverified Allergy, Severe, 03/16/15) Sulfa Antibiotics (Unverified Allergy, Severe, 03/16/15) Morphine (Verified Allergy, Intermediate, ALTERED, 01/31/18) Ceftriaxone (Verified Allergy, Unknown, 01/31/18) Reviewed: Care Plan, H&P, Labs, Medications, Previous Orders, Radiology Changes from previous H/P or p: No Changes Objective Vitals Vital Signs Date Time Temp Pulse Resp B/P (MAP) Pulse Ox O2 Delivery O2 Flow Rate FiO2 02/12/25 06:30 81 16 91/35 (53) 99 02/12/25 06:00 Room Air* 0 21 02/12/25 04:01 98.3 98.3 Intake/Output Intake and Output 02/12/25 07:00 Intake Total 16318.509 ml Output Total 1400 ml Balance 16249.509 ml Intake Oral 600 ml IV Total 84868.509 ml Output Urine Total 1100 ml Urine/Stool Mix 300 ml # Bowel Movements 2 General Appearance: Alert, Other (Disoriented) HEENT: Atraumatic, PERRLA, EOMI Lungs: Other (Bilateral crackles. Decreased air movement bilaterally) Cardiovascular: Regular rate, Normal S1, Normal S2 Abdomen: Normal bowel sounds, Soft, No tenderness Musculoskeletal: Normal sensory function, Normal motor function Extremities: Other (2+ edema bilaterally in the lower extremities) Neuro: Strength at 5/5 X4 ext, Cranial nerves 3-12 NL Skin: Significant Lesion, Dry, Intact, Warm Psych/Mental Status: Mental status NL, Mood NL Medications Current Medications Medications Dose Ordered Sig/Taran Route Start Time Stop Time Status Last Admin Dose Admin Ondansetron HCl 4 mg Q4HP PRN IV 01/31/25 19:30 02/12/25 08:02 4 MG Enoxaparin Sodium 40 mg DAILY SC 02/01/25 10:00 02/11/25 09:32 40 MG Acetaminophen 650 mg Q6HP PRN PO 01/31/25 19:30 02/11/25 11:22 650 MG Nitroglycerin 0.4 mg Q5MINP PRN SL 01/31/25 19:30 Carbidopa/Levodopa 2 tab HS PO 01/31/25 22:00 02/09/25 20:52 2 TAB Albuterol 2.5 mg Q6HPRN PRN NEB 01/31/25 19:30 02/11/25 23:32 2.5 MG Acetaminophen/ Hydrocodone Bitart 1 tab Q6HPRN PRN PO 02/01/25 03:45 02/10/25 06:34 1 TAB Digoxin 125 mcg DAILY IV 02/02/25 10:00 02/11/25 09:32 125 MCG Diagnostic Test (Pha) 1 strip ACHS 02/03/25 17:00 02/12/25 06:43 1 STRIP Insulin Human Regular ACHS SC 02/03/25 17:00 Dextrose 50 ml UD PRN IV 02/03/25 16:45 02/11/25 06:54 50 ML Levothyroxine Sodium 100 mcg QAM@0600 PO 02/08/25 06:00 02/12/25 06:04 100 MCG Patient Own Medication 160 mg DAILY IV 02/09/25 10:00 UNV Patient Own Medication 1 g Q8H IV 02/08/25 12:30 UNV Ceftolozane/ Tazobactam 3 gm/ Dextrose 100 ml @ 100 mls/hr Q8HR IV 02/08/25 14:00 02/12/25 06:04 100 MLS/HR Enteral Nutritional Formula 240 ml TIDWM PO 02/09/25 12:00 02/12/25 08:17 240 ML Norepinephrine Bitartrate 250 ml @ 3.75 mls/hr Q24H IV 02/09/25 12:45 02/11/25 04:03 18.75 MLS/HR Betamethasone Dipropion Augmented 1 applic DAILY TOP 02/12/25 10:00 Clotrimazole 1 applic DAILY TOP 02/12/25 10:00 Patient Own Medication 1 DAILY TOP 02/12/25 10:00 Dopamine HCl/ Dextrose 250 ml @ 10.847 mls/ hr Q23H3M IV 02/11/25 18:30 02/12/25 02:00 10.847 MLS/HR Bumetanide 12.5 mg/Miscellaneous 50 ml @ 2 mls/hr Q24H IV 02/11/25 18:30 02/11/25 19:58 2 MLS/HR Potassium Chloride 100 ml @ 50 mls/hr Q2H IV 02/12/25 07:00 02/12/25 10:59 02/12/25 07:20 50 MLS/HR Laboratory Results Laboratory Tests 02/09/25 05:10 02/12/25 05:07 Chemistry Test 02/12/25 05:07 Calcium Level 9.1 mg/dL (8.7-10.4) Urinalysis Test 01/31/25 16:30 02/08/25 11:45 Urine Hyaline Casts Few /lpf (0 - 2) Urine Mucus Few (None Seen) Urine Color Yellow (Yellow) Urine Clarity Cloudy (Clear) H Urine pH 5.5 (5.0-9.0) Urine Specific [place] 1.013 (1.001-1.035) Urine Protein 1+ (Negative) H Urine Ketones Negative (Negative) Urine Blood 1+ /uL (Negative) H Urine Nitrite Negative (Negative) Urine Bilirubin Negative (Negative) Urine Urobilinogen Normal mg/dL (Negative) Urine Leukocyte Esterase 3+ /uL (Negative) Urine RBC 110 /hpf (0 - 4) Urine WBC Clumps Present /hpf (None Seen) Urine Microscopic WBC 1269 /HPF (0-5) H Urine Squamous Epithelial Cells Few /hpf (<5) Urine Bacteria Few /hpf (None Seen) H Urine Yeast (Budding) Loaded /hpf (None Seen) Urine Glucose Normal mg/dL (Normal) Microbiology Microbiology Date/Time Source Procedure Growth Status 02/08/25 22:15 Urine - Hook Port Urine Culture - Final Enterococcus faecalis Complete 02/08/25 20:11 Blood Blood Culture - Preliminary NO GROWTH AFTER 72 HOURS OF INCUBATION. Resulted 02/03/25 00:50 Nose MRSA Screen - Final Complete Assessment/Plan Assessment/Plan Impression: Acute metabolic encephalopathy Septic shock due to UTI Morbid obesity, BMI 42.3 Snoring, likely ARPAN Urinary tract infection Congestive heart failure (HFpEF) Hyponatremia Pleural effusions Atelectasis Events: Breathing on room air Supplemental oxygen PRN Continue bronchodilators Continue antibiotics Incentive spirometry Patient is on dopamine, renally dosed. Continue Bumex drip for diuresis Monitor renal function Monitor electrolytes. Supplement as necessary. Nephrology recommendations appreciated. Labs and imaging reviewed. Rest of plan as noted below. Plan: Supplemental oxygen PRN Titrate to keep O2 sats above 92%. Bronchodilators PRN. Continue antibiotics Incentive spirometry Pressors as necessary for hemodynamic support Titrate to keep mean arterial pressure greater than 65 mmHg. On dopamine drip, renally dosed. Follow up Cardiology recs Diurese to euvolemia Monitor renal function. Monitor electrolytes. Supplement as necessary. Monitor sodium Monitor ins and outs. DVT prophylaxis - Lovenox. Prognosis: Poor given patient's multiple co-morbidities. Condition: Critical Rest of plan per hospitalist and other consultants. A total of 35 minutes of critical care time was spent reviewing the patient record, examining the patient, making a diagnostic and therapeutic plan, discussing this plan with the medical personnel, following up on diagnostic studies and following the patient for clinical stability excluding any and all procedures. At least 50% of this time was spent in direct, [id number] contact. Thank you, Dr. Castaneda, for allowing me to participate in this patient's care. Further recommendations will depend on the patient's clinical course. Please do not hesitate to contact me if you have any questions or concerns. This medical document was created using an electronic medical record system with [employer] dictation system. Although these documentations are being carefully reviewed, there may still be some phonetic and typographical changes. The errors are purely typographical, due to imperfection on the software program, and do not reflect any compromise in the patient's medical care. Plan discussed with: Patient, Other (RN) Date of Service: Feb 11, 2025 Billing Provider: BENITO WILLARD MD Common Visit Codes: [id number] INP/OBS CARE(HIGH), [id number] CARE 30-74 MIN BENITO WILLARD MD Feb 12, 2025 08:26
[2025-02-12] MEDS: CLOBETASOL 0.05% TOP SCH (10:00)
[2025-02-12] MEDS: BETAMETHASONE DIPROP0.05% TOPICAL CREAM 15GM TOP SCH (10:30)
[2025-02-12] MEDS: CLOTRIMAZOLE 1 % CREAM 15GM TOP SCH (10:30)
--- NOTE | 2025-02-12 12:22 | DVHPN2 ---
Progress Note Date Seen: Feb 12, 2025 Medical Necessity Reason Pt with a Central, PICC or Fol: Yes The following are medically ne: Hook Catheter Subjective Patient reports: No new complaints Review of Systems: Deferred Objective vital signs Vital Sign Date Time Temp Pulse Resp B/P (MAP) Pulse Ox O2 Delivery O2 Flow Rate FiO2 02/12/25 12:15 93 14 96/63 (74) 98 02/12/25 12:00 Room Air* 0 21 02/12/25 04:01 98.3 98.3 Total Intake and Output 02/11/25 02/11/25 02/12/25 15:00 23:00 07:00 Intake Total 42549.483 ml 709.470 ml 425.278 ml Output Total 500 ml 900 ml Balance 47301.483 ml 209.470 ml -474.722 ml medications Current Medications Medications Dose Ordered Sig/Taran Route Start Time Stop Time Status Last Admin Dose Admin Ondansetron HCl 4 mg Q4HP PRN IV 01/31/25 19:30 02/12/25 08:02 4 MG Acetaminophen 650 mg Q6HP PRN PO 01/31/25 19:30 02/11/25 11:22 650 MG Nitroglycerin 0.4 mg Q5MINP PRN SL 01/31/25 19:30 Carbidopa/Levodopa 2 tab HS PO 01/31/25 22:00 02/09/25 20:52 2 TAB Albuterol 2.5 mg Q6HPRN PRN NEB 01/31/25 19:30 02/11/25 23:32 2.5 MG Acetaminophen/ Hydrocodone Bitart 1 tab Q6HPRN PRN PO 02/01/25 03:45 02/10/25 06:34 1 TAB Digoxin 125 mcg DAILY IV 02/02/25 10:00 02/12/25 10:00 125 MCG Diagnostic Test (Pha) 1 strip ACHS 02/03/25 17:00 02/12/25 11:34 1 STRIP Insulin Human Regular ACHS SC 02/03/25 17:00 Dextrose 50 ml UD PRN IV 02/03/25 16:45 02/11/25 06:54 50 ML Levothyroxine Sodium 100 mcg QAM@0600 PO 02/08/25 06:00 02/12/25 06:04 100 MCG Patient Own Medication 160 mg DAILY IV 02/09/25 10:00 UNV Patient Own Medication 1 g Q8H IV 02/08/25 12:30 UNV Ceftolozane/ Tazobactam 3 gm/ Dextrose 100 ml @ 100 mls/hr Q8HR IV 02/08/25 14:00 02/12/25 06:04 100 MLS/HR Enteral Nutritional Formula 240 ml TIDWM PO 02/09/25 12:00 02/12/25 08:17 240 ML Norepinephrine Bitartrate 250 ml @ 3.75 mls/hr Q24H IV 02/09/25 12:45 02/11/25 04:03 18.75 MLS/HR Betamethasone Dipropion Augmented 1 applic DAILY TOP 02/12/25 10:00 02/12/25 10:30 1 APPLIC Clotrimazole 1 applic DAILY TOP 02/12/25 10:00 02/12/25 10:41 1 APPLIC Patient Own Medication 1 DAILY TOP 02/12/25 10:00 02/12/25 10:00 1 Dopamine HCl/ Dextrose 250 ml @ 10.847 mls/ hr Q23H3M IV 02/11/25 18:30 02/12/25 02:00 10.847 MLS/HR Bumetanide 12.5 mg/Miscellaneous 50 ml @ 2 mls/hr Q24H IV 02/11/25 18:30 02/12/25 08:50 2 MLS/HR Enoxaparin Sodium 40 mg BID SC 02/12/25 22:00 Examination: GENERAL:Abnormal, LUNGS:Abnormal, CVS:Abnormal, SKIN:Abnormal laboratory and microbiology Laboratory Tests 02/12/25 05:07 02/09/25 05:10 Test 02/12/25 05:07 Range/Units Serum Glucose 86 74-106 mg/dL Microbiology Date/Time Source Procedure Growth Status 02/08/25 22:15 Urine - Hook Port Urine Culture - Final Enterococcus faecalis Complete 02/08/25 20:11 Blood Blood Culture - Preliminary NO GROWTH AFTER 72 HOURS OF INCUBATION. 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 CCHO-60 2 gNa diet w 45g proein restriction 2. Try Devin for wound healing 3. Wt management 4. F/U with nephrology and updated lab values Expected Outcomes/Goals: Less uremic syndrome, controlled DM Critical Care Time (mins): 33 MICHELA AMEZQUITA MD Feb 12, 2025 12:22
--- NOTE | 2025-02-12 13:14 | DVHPN2 ---
Subjective No new complaints Reviewed: Care Plan, H&P, Labs, Medications, Previous Orders, Radiology Changes from previous H/P or p: Changes Objective Vitals Vital Signs Date Time Temp Pulse Resp B/P (MAP) Pulse Ox O2 Delivery O2 Flow Rate FiO2 02/12/25 12:58 94/41 02/12/25 12:15 93 14 98 02/12/25 12:00 Room Air* 0 21 02/12/25 04:01 98.3 98.3 Intake/Output Intake and Output 02/12/25 07:00 Intake Total 50189.231 ml Output Total 1400 ml Balance 33665.231 ml Intake Oral 600 ml IV Total 16203.231 ml Output Urine Total 1100 ml Urine/Stool Mix 300 ml # Bowel Movements 2 General Appearance: Alert, Other (Disoriented) HEENT: Atraumatic, PERRLA, EOMI Lungs: Other (Bilateral crackles. Decreased air movement bilaterally) Cardiovascular: Regular rate, Normal S1, Normal S2 Abdomen: Normal bowel sounds, Soft, No tenderness Musculoskeletal: Normal sensory function, Normal motor function Extremities: Other (2+ edema bilaterally in the lower extremities) Neuro: Strength at 5/5 X4 ext, Cranial nerves 3-12 NL Skin: Significant Lesion, Dry, Intact, Warm Psych/Mental Status: Mental status NL, Mood NL Medications Current Medications Medications Dose Ordered Sig/Taran Route Start Time Stop Time Status Last Admin Dose Admin Ondansetron HCl 4 mg Q4HP PRN IV 01/31/25 19:30 02/12/25 08:02 4 MG Acetaminophen 650 mg Q6HP PRN PO 01/31/25 19:30 02/11/25 11:22 650 MG Nitroglycerin 0.4 mg Q5MINP PRN SL 01/31/25 19:30 Carbidopa/Levodopa 2 tab HS PO 01/31/25 22:00 02/09/25 20:52 2 TAB Albuterol 2.5 mg Q6HPRN PRN NEB 01/31/25 19:30 02/11/25 23:32 2.5 MG Acetaminophen/ Hydrocodone Bitart 1 tab Q6HPRN PRN PO 02/01/25 03:45 02/10/25 06:34 1 TAB Digoxin 125 mcg DAILY IV 02/02/25 10:00 02/12/25 10:00 125 MCG Diagnostic Test (Pha) 1 strip ACHS 02/03/25 17:00 02/12/25 11:34 1 STRIP Insulin Human Regular ACHS SC 02/03/25 17:00 Dextrose 50 ml UD PRN IV 02/03/25 16:45 02/11/25 06:54 50 ML Levothyroxine Sodium 100 mcg QAM@0600 PO 02/08/25 06:00 02/12/25 06:04 100 MCG Patient Own Medication 160 mg DAILY IV 02/09/25 10:00 UNV Patient Own Medication 1 g Q8H IV 02/08/25 12:30 UNV Ceftolozane/ Tazobactam 3 gm/ Dextrose 100 ml @ 100 mls/hr Q8HR IV 02/08/25 14:00 02/12/25 06:04 100 MLS/HR Enteral Nutritional Formula 240 ml TIDWM PO 02/09/25 12:00 02/12/25 12:43 240 ML Norepinephrine Bitartrate 250 ml @ 3.75 mls/hr Q24H IV 02/09/25 12:45 02/12/25 12:43 7.5 MLS/HR Betamethasone Dipropion Augmented 1 applic DAILY TOP 02/12/25 10:00 02/12/25 10:30 1 APPLIC Clotrimazole 1 applic DAILY TOP 02/12/25 10:00 02/12/25 10:41 1 APPLIC Patient Own Medication 1 DAILY TOP 02/12/25 10:00 02/12/25 10:00 1 Dopamine HCl/ Dextrose 250 ml @ 10.847 mls/ hr Q23H3M IV 02/11/25 18:30 02/12/25 02:00 10.847 MLS/HR Bumetanide 12.5 mg/Miscellaneous 50 ml @ 2 mls/hr Q24H IV 02/11/25 18:30 02/12/25 08:50 2 MLS/HR Enoxaparin Sodium 40 mg BID SC 02/12/25 22:00 Potassium Bicarbonate 25 meq BID PO 02/12/25 22:00 Fludrocortisone Acetate 0.1 mg BID PO 02/12/25 22:00 UNV Laboratory Results Laboratory Tests 02/09/25 05:10 02/12/25 05:07 Chemistry Test 02/12/25 05:07 Calcium Level 9.1 mg/dL (8.7-10.4) Urinalysis Test 01/31/25 16:30 02/08/25 11:45 Urine Hyaline Casts Few /lpf (0 - 2) Urine Mucus Few (None Seen) Urine Color Yellow (Yellow) Urine Clarity Cloudy (Clear) H Urine pH 5.5 (5.0-9.0) Urine Specific [place] 1.013 (1.001-1.035) Urine Protein 1+ (Negative) H Urine Ketones Negative (Negative) Urine Blood 1+ /uL (Negative) H Urine Nitrite Negative (Negative) Urine Bilirubin Negative (Negative) Urine Urobilinogen Normal mg/dL (Negative) Urine Leukocyte Esterase 3+ /uL (Negative) Urine RBC 110 /hpf (0 - 4) Urine WBC Clumps Present /hpf (None Seen) Urine Microscopic WBC 1269 /HPF (0-5) H Urine Squamous Epithelial Cells Few /hpf (<5) Urine Bacteria Few /hpf (None Seen) H Urine Yeast (Budding) Loaded /hpf (None Seen) Urine Glucose Normal mg/dL (Normal) Microbiology Microbiology Date/Time Source Procedure Growth Status 02/08/25 22:15 Urine - Hook Port Urine Culture - Final Enterococcus faecalis Complete 02/08/25 20:11 Blood Blood Culture - Preliminary NO GROWTH AFTER 72 HOURS OF INCUBATION. Resulted 02/03/25 00:50 Nose MRSA Screen - Final Complete Assessment/Plan Assessment/Plan Acute metabolic encephalopathy Septic shock due to UTI UTI Recent sepsis with a wound infection due to Pseudomonas aeruginosa MDRO Morbid obesity Bed-bound Type 2 diabetes Acute kidney injury Left hydronephrosis [place]orseshoe kidney Status post ureteral stent Chronic anemia Hyponatremia Atrial fibrillation Heart failure with preserved ejection fraction Plan Broad-spectrum antibiotics: Levofloxacin and gentamicin Vasopressors as needed, norepinephrine drip Cardiology consult Lasix drip per Dr. Cifuentes Full code Discussed with the daughter at the bedside Advance directives discussed for 20 minute 02/03/2025: Continue IV antibiotics Vasopressors Lasix Central line to be done by emergency room physician Cardiology consultation Dr. Cifuentes Monitor closely 02/04/2025: Replace magnesium and potassium Continue IV antibiotics Infectious Disease consultation Vasopressors as needed Lasix drip Monitor closely The rest of the management will depend on the hospital course 02/05/25: IV antibiotics: Gentamicin and levofloxacin Taper Levophed off as tolerated Lasix Replace K+ and Mg 02/06/2025: Continue the current management Tapered off the Levophed as tolerated Continue Lasix Replace potassium magnesium as needed 02/07/2025: Taper off the Levophed drip as tolerated Downgrade to telemetry once she is off the Levophed Discontinue the gentamicin Replace magnesium and potassium as needed Discharge planning once she is off the Levophed drip 02/08/2025: Levophed and dopamine drip Replace potassium and magnesium as needed Restarted antibiotics per Dr. Cifuentes Monitor closely 02/09/2025: Start Lasix 40 mg IV twice a day Continue Levophed and dopamine drip as needed IV antibiotics per Infectious Disease Dr. Adler Monitor closely 02/10/25: Continue Lasix drip Levo Dopamine IV antibiotics 02/11/2025: Continue Levophed and dopamine drips IV antibiotics Lasix drip Replace potassium and magnesium Monitor closely 02/12/25: HFpEF: Bumex drip Sepsis: Levophed and dopamine drips Sepsis: [place]erb[place]a Hypokalemia: Replace K+ Hyponatremia Plan discussed with: Patient My Orders Orders - FALGUNI CM MD Procedure Category Date Status Time Chest Xray 1 View XY 02/12/25 Resulted 04:00 Date of Service: Feb 12, 2025 Billing Provider: FALGUNI CM MD Common Visit Codes: [id number] INP/OBS CARE(HIGH) FALGUNI CM MD Feb 12, 2025 13:14
--- NOTE | 2025-02-12 13:28 | DVHPN2 ---
Progress Note - Dictate Date Seen: Feb 12, 2025 Medical Necessity Reason Pt with a Central, PICC or Fol: Yes The following are medically ne: Hook Catheter Subjective SHE BECAME UNRESPONSIVE BLOOD SUGAR 166 SHE WAS MILDLY HYPOTENSIVE HAD LEFT SIGHT ARM MOVEMENT LASTED ABOUT 10 MINUTES TOTAL/ NO CLEAR POST ICTAL PERIOD PRESENTATION CONSISTENT WITH METABOLIC SYNDROME/ INFECTION ESPECIALLY WITH HER RECENT ADMISSION FOR SEPSIS/ BACTEREMIA RECENT HX OF HYPOTENSION POSITIVE BLOOD CX STAPH PRODUCTIVE COUGH HYPOXIA SEVERE ANEMIA HX OF BLEEDING DIATHESIS NOW BEING TRANSFUSE PMH; HEMATURIA HX OF ORGANIC HD S/P TAVR HX OF AV STENOSIS HTN HFpEF DIASTOLIC DYSFUNCTION AFIB ON SOTALOL HYPERCOAGULABLE STATE HX OF DVT MORBID OBESITY 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 ANEMIA HYPONATREMIA DECUB STAGE II MULTIPLE ORGANISM PSEUDOMONAS vital signs Vital Sign Date Time Temp Pulse Resp B/P (MAP) Pulse Ox O2 Delivery O2 Flow Rate FiO2 02/12/25 12:58 94/41 02/12/25 12:15 93 14 98 02/12/25 12:00 Room Air* 0 21 02/12/25 04:01 98.3 98.3 Total Intake and Output 02/11/25 02/11/25 02/12/25 15:00 23:00 07:00 Intake Total 07551.483 ml 709.470 ml 425.278 ml Output Total 500 ml 900 ml Balance 40514.483 ml 209.470 ml -474.722 ml medications Current Medications Medications Dose Ordered Sig/Taran Route Start Time Stop Time Status Last Admin Dose Admin Ondansetron HCl 4 mg Q4HP PRN IV 01/31/25 19:30 02/12/25 08:02 4 MG Acetaminophen 650 mg Q6HP PRN PO 01/31/25 19:30 02/11/25 11:22 650 MG Nitroglycerin 0.4 mg Q5MINP PRN SL 01/31/25 19:30 Carbidopa/Levodopa 2 tab HS PO 01/31/25 22:00 02/09/25 20:52 2 TAB Albuterol 2.5 mg Q6HPRN PRN NEB 01/31/25 19:30 02/11/25 23:32 2.5 MG Acetaminophen/ Hydrocodone Bitart 1 tab Q6HPRN PRN PO 02/01/25 03:45 02/10/25 06:34 1 TAB Digoxin 125 mcg DAILY IV 02/02/25 10:00 02/12/25 10:00 125 MCG Diagnostic Test (Pha) 1 strip ACHS 02/03/25 17:00 02/12/25 11:34 1 STRIP Insulin Human Regular ACHS SC 02/03/25 17:00 Dextrose 50 ml UD PRN IV 02/03/25 16:45 02/11/25 06:54 50 ML Levothyroxine Sodium 100 mcg QAM@0600 PO 02/08/25 06:00 02/12/25 06:04 100 MCG Patient Own Medication 160 mg DAILY IV 02/09/25 10:00 UNV Patient Own Medication 1 g Q8H IV 02/08/25 12:30 UNV Ceftolozane/ Tazobactam 3 gm/ Dextrose 100 ml @ 100 mls/hr Q8HR IV 02/08/25 14:00 02/12/25 06:04 100 MLS/HR Enteral Nutritional Formula 240 ml TIDWM PO 02/09/25 12:00 02/12/25 12:43 240 ML Norepinephrine Bitartrate 250 ml @ 3.75 mls/hr Q24H IV 02/09/25 12:45 02/12/25 12:43 7.5 MLS/HR Betamethasone Dipropion Augmented 1 applic DAILY TOP 02/12/25 10:00 02/12/25 10:30 1 APPLIC Clotrimazole 1 applic DAILY TOP 02/12/25 10:00 02/12/25 10:41 1 APPLIC Patient Own Medication 1 DAILY TOP 02/12/25 10:00 02/12/25 10:00 1 Dopamine HCl/ Dextrose 250 ml @ 10.847 mls/ hr Q23H3M IV 02/11/25 18:30 02/12/25 02:00 10.847 MLS/HR Bumetanide 12.5 mg/Miscellaneous 50 ml @ 2 mls/hr Q24H IV 02/11/25 18:30 02/12/25 08:50 2 MLS/HR Enoxaparin Sodium 40 mg BID SC 02/12/25 22:00 Potassium Bicarbonate 25 meq BID PO 02/12/25 22:00 Fludrocortisone Acetate 0.1 mg BID PO 02/12/25 22:00 laboratory and microbiology Laboratory Tests 02/12/25 05:07 02/09/25 05:10 Test 02/12/25 05:07 Range/Units Serum Glucose 86 74-106 mg/dL Problem List SHE BECAME UNRESPONSIVE BLOOD SUGAR 166 HYPOTENSIVE HAD LEFT SIGHT ARM MOVEMENT LASTED ABOUT 10 MINUTES TOTAL/ NO CLEAR POST ICTAL PERIOD PRESENTATION CONSISTENT WITH METABOLIC SYNDROME/ INFECTION ESPECIALLY WITH HER RECENT ADMISSION FOR SEPSIS/ BACTEREMIA RECENT HX OF HYPOTENSION POSITIVE BLOOD CX STAPH PRODUCTIVE COUGH HYPOXIA SEVERE ANEMIA HX OF BLEEDING DIATHESIS NOW BEING TRANSFUSE PMH; HEMATURIA HX OF ORGANIC HD S/P TAVR HX OF AV STENOSIS HTN HFpEF DIASTOLIC DYSFUNCTION AFIB ON SOTALOL HYPERCOAGULABLE STATE HX OF DVT MORBID OBESITY 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 ANEMIA HYPONATREMIA PSEUDOMONAS INFECTION Assessment/Plan ABX PRESSORS WOUND CARE TRIPLE LUMEN INSERTION DC LASIX LABS START DOPAMINE RENAL PERFUSION STOOL OCCULT BLOOD SECONDARY TO HIGH BUN / CR RATIO WILL RESTART LASIX IN AM 3% saline resume gent and meropanam DC ABOVE ABX TREATMENT FOR YEAST AND VRE ENTEROCOCCUS Dietary Evaluation Review Comments: 1. CCHO-60 2 gNa diet w 45g proein restriction 2. Try Devin for wound healing 3. Wt management 4. F/U with nephrology and updated lab values Expected Outcomes/Goals: Less uremic syndrome, controlled DM Plan discussed with: Patient, Daughter Critical Care Time(min): 35 MONTRELL RANKIN MD Feb 12, 2025 13:28
--- NOTE | 2025-02-12 13:29 | DVHPN2 ---
Progress Note - Dictate Date Seen: Feb 11, 2025 Medical Necessity Reason Pt with a Central, PICC or Fol: Yes The following are medically ne: Hook Catheter Subjective SHE BECAME UNRESPONSIVE BLOOD SUGAR 166 SHE WAS MILDLY HYPOTENSIVE HAD LEFT SIGHT ARM MOVEMENT LASTED ABOUT 10 MINUTES TOTAL/ NO CLEAR POST ICTAL PERIOD PRESENTATION CONSISTENT WITH METABOLIC SYNDROME/ INFECTION ESPECIALLY WITH HER RECENT ADMISSION FOR SEPSIS/ BACTEREMIA RECENT HX OF HYPOTENSION POSITIVE BLOOD CX STAPH PRODUCTIVE COUGH HYPOXIA SEVERE ANEMIA HX OF BLEEDING DIATHESIS NOW BEING TRANSFUSE PMH; HEMATURIA HX OF ORGANIC HD S/P TAVR HX OF AV STENOSIS HTN HFpEF DIASTOLIC DYSFUNCTION AFIB ON SOTALOL HYPERCOAGULABLE STATE HX OF DVT MORBID OBESITY 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 ANEMIA HYPONATREMIA DECUB STAGE II MULTIPLE ORGANISM PSEUDOMONAS vital signs Vital Sign Date Time Temp Pulse Resp B/P (MAP) Pulse Ox O2 Delivery O2 Flow Rate FiO2 02/12/25 12:58 94/41 02/12/25 12:15 93 14 98 02/12/25 12:00 Room Air* 0 21 02/12/25 04:01 98.3 98.3 Total Intake and Output 02/11/25 02/11/25 02/12/25 15:00 23:00 07:00 Intake Total 10776.483 ml 709.470 ml 425.278 ml Output Total 500 ml 900 ml Balance 87034.483 ml 209.470 ml -474.722 ml medications Current Medications Medications Dose Ordered Sig/Taran Route Start Time Stop Time Status Last Admin Dose Admin Ondansetron HCl 4 mg Q4HP PRN IV 01/31/25 19:30 02/12/25 08:02 4 MG Acetaminophen 650 mg Q6HP PRN PO 01/31/25 19:30 02/11/25 11:22 650 MG Nitroglycerin 0.4 mg Q5MINP PRN SL 01/31/25 19:30 Carbidopa/Levodopa 2 tab HS PO 01/31/25 22:00 02/09/25 20:52 2 TAB Albuterol 2.5 mg Q6HPRN PRN NEB 01/31/25 19:30 02/11/25 23:32 2.5 MG Acetaminophen/ Hydrocodone Bitart 1 tab Q6HPRN PRN PO 02/01/25 03:45 02/10/25 06:34 1 TAB Digoxin 125 mcg DAILY IV 02/02/25 10:00 02/12/25 10:00 125 MCG Diagnostic Test (Pha) 1 strip ACHS 02/03/25 17:00 02/12/25 11:34 1 STRIP Insulin Human Regular ACHS SC 02/03/25 17:00 Dextrose 50 ml UD PRN IV 02/03/25 16:45 02/11/25 06:54 50 ML Levothyroxine Sodium 100 mcg QAM@0600 PO 02/08/25 06:00 02/12/25 06:04 100 MCG Patient Own Medication 160 mg DAILY IV 02/09/25 10:00 UNV Patient Own Medication 1 g Q8H IV 02/08/25 12:30 UNV Ceftolozane/ Tazobactam 3 gm/ Dextrose 100 ml @ 100 mls/hr Q8HR IV 02/08/25 14:00 02/12/25 06:04 100 MLS/HR Enteral Nutritional Formula 240 ml TIDWM PO 02/09/25 12:00 02/12/25 12:43 240 ML Norepinephrine Bitartrate 250 ml @ 3.75 mls/hr Q24H IV 02/09/25 12:45 02/12/25 12:43 7.5 MLS/HR Betamethasone Dipropion Augmented 1 applic DAILY TOP 02/12/25 10:00 02/12/25 10:30 1 APPLIC Clotrimazole 1 applic DAILY TOP 02/12/25 10:00 02/12/25 10:41 1 APPLIC Patient Own Medication 1 DAILY TOP 02/12/25 10:00 02/12/25 10:00 1 Dopamine HCl/ Dextrose 250 ml @ 10.847 mls/ hr Q23H3M IV 02/11/25 18:30 02/12/25 02:00 10.847 MLS/HR Bumetanide 12.5 mg/Miscellaneous 50 ml @ 2 mls/hr Q24H IV 02/11/25 18:30 02/12/25 08:50 2 MLS/HR Enoxaparin Sodium 40 mg BID SC 02/12/25 22:00 Potassium Bicarbonate 25 meq BID PO 02/12/25 22:00 Fludrocortisone Acetate 0.1 mg BID PO 02/12/25 22:00 laboratory and microbiology Laboratory Tests 02/12/25 05:07 02/09/25 05:10 Test 02/12/25 05:07 Range/Units Serum Glucose 86 74-106 mg/dL Problem List SHE BECAME UNRESPONSIVE BLOOD SUGAR 166 HYPOTENSIVE HAD LEFT SIGHT ARM MOVEMENT LASTED ABOUT 10 MINUTES TOTAL/ NO CLEAR POST ICTAL PERIOD PRESENTATION CONSISTENT WITH METABOLIC SYNDROME/ INFECTION ESPECIALLY WITH HER RECENT ADMISSION FOR SEPSIS/ BACTEREMIA RECENT HX OF HYPOTENSION POSITIVE BLOOD CX STAPH PRODUCTIVE COUGH HYPOXIA SEVERE ANEMIA HX OF BLEEDING DIATHESIS NOW BEING TRANSFUSE PMH; HEMATURIA HX OF ORGANIC HD S/P TAVR HX OF AV STENOSIS HTN HFpEF DIASTOLIC DYSFUNCTION AFIB ON SOTALOL HYPERCOAGULABLE STATE HX OF DVT MORBID OBESITY 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 ANEMIA HYPONATREMIA PSEUDOMONAS INFECTION Assessment/Plan ABX PRESSORS WOUND CARE TRIPLE LUMEN INSERTION DC LASIX LABS START DOPAMINE RENAL PERFUSION STOOL OCCULT BLOOD SECONDARY TO HIGH BUN / CR RATIO WILL RESTART LASIX IN AM 3% saline resume gent and meropanam DC ABOVE ABX TREATMENT FOR YEAST AND VRE ENTEROCOCCUS titrate off levo START FLORINEF Dietary Evaluation Review Comments: 1. CCHO-60 2 gNa diet w 45g proein restriction 2. Try Devin for wound healing 3. Wt management 4. F/U with nephrology and updated lab values Expected Outcomes/Goals: Less uremic syndrome, controlled DM Plan discussed with: Patient, Daughter Critical Care Time(min): 35 MONTRELL RANKIN MD Feb 12, 2025 13:29
[2025-02-12] MEDS: ALBUMIN 5% 250 ML IV ONE (14:59)
--- NOTE | 2025-02-12 17:40 | DVHPN2 ---
Consult Progress Note Objective vital signs Vital Sign Date Time Temp Pulse Resp B/P (MAP) Pulse Ox O2 Delivery O2 Flow Rate FiO2 02/12/25 14:45 87 18 99 02/12/25 14:33 Room Air 02/12/25 14:33 0 21 02/12/25 04:01 98.3 98.3 Total Intake and Output 02/11/25 02/11/25 02/12/25 15:00 23:00 07:00 Intake Total 89073.483 ml 709.470 ml 425.278 ml Output Total 500 ml 900 ml Balance 84931.483 ml 209.470 ml -474.722 ml medications Current Medications Medications Dose Ordered Sig/Taran Route Start Time Stop Time Status Last Admin Dose Admin Ondansetron HCl 4 mg Q4HP PRN IV 01/31/25 19:30 02/12/25 16:49 4 MG Acetaminophen 650 mg Q6HP PRN PO 01/31/25 19:30 02/11/25 11:22 650 MG Nitroglycerin 0.4 mg Q5MINP PRN SL 01/31/25 19:30 Carbidopa/Levodopa 2 tab HS PO 01/31/25 22:00 02/09/25 20:52 2 TAB Albuterol 2.5 mg Q6HPRN PRN NEB 01/31/25 19:30 02/12/25 14:33 2.5 MG Acetaminophen/ Hydrocodone Bitart 1 tab Q6HPRN PRN PO 02/01/25 03:45 02/12/25 15:58 1 TAB Digoxin 125 mcg DAILY IV 02/02/25 10:00 02/12/25 10:00 125 MCG Diagnostic Test (Pha) 1 strip ACHS 02/03/25 17:00 02/12/25 16:50 1 STRIP Insulin Human Regular ACHS SC 02/03/25 17:00 Dextrose 50 ml UD PRN IV 02/03/25 16:45 02/11/25 06:54 50 ML Levothyroxine Sodium 100 mcg QAM@0600 PO 02/08/25 06:00 02/12/25 06:04 100 MCG Patient Own Medication 160 mg DAILY IV 02/09/25 10:00 UNV Patient Own Medication 1 g Q8H IV 02/08/25 12:30 UNV Ceftolozane/ Tazobactam 3 gm/ Dextrose 100 ml @ 100 mls/hr Q8HR IV 02/08/25 14:00 02/12/25 14:00 100 MLS/HR Enteral Nutritional Formula 240 ml TIDWM PO 02/09/25 12:00 02/12/25 12:43 240 ML Norepinephrine Bitartrate 250 ml @ 3.75 mls/hr Q24H IV 02/09/25 12:45 02/12/25 12:43 7.5 MLS/HR Betamethasone Dipropion Augmented 1 applic DAILY TOP 02/12/25 10:00 02/12/25 10:30 1 APPLIC Clotrimazole 1 applic DAILY TOP 02/12/25 10:00 02/12/25 10:41 1 APPLIC Patient Own Medication 1 DAILY TOP 02/12/25 10:00 02/12/25 10:00 1 Dopamine HCl/ Dextrose 250 ml @ 10.847 mls/ hr Q23H3M IV 02/11/25 18:30 02/12/25 02:00 10.847 MLS/HR Bumetanide 12.5 mg/Miscellaneous 50 ml @ 2 mls/hr Q24H IV 02/11/25 18:30 02/12/25 08:50 2 MLS/HR Enoxaparin Sodium 40 mg BID SC 02/12/25 22:00 Potassium Bicarbonate 25 meq BID PO 02/12/25 22:00 Fludrocortisone Acetate 0.1 mg BID PO 02/12/25 22:00 laboratory and microbiology Laboratory Tests 02/12/25 05:07 02/09/25 05:10 Test 02/12/25 05:07 Range/Units Serum Glucose 86 74-106 mg/dL Dietary Evaluation Review Comments: 1. CCHO-60 2 gNa diet w 45g proein restriction 2. Try Devin for wound healing 3. Wt management 4. F/U with nephrology and updated lab values Expected Outcomes/Goals: Less uremic syndrome, controlled DM MIRIAM SCOTT MD Feb 12, 2025 17:40
--- NOTE | 2025-02-12 20:04 | DVHPN2 ---
Consult Progress Note Date Seen: Feb 12, 2025 Subjective Other Systems: Patient is on pressors, has lower suspicion of active infection. Patient is on room air. Patient was changed to Bumex drip. Patient seems intravascularly hypovolemic, oncotic pressure seems improving with elevated albumin. Patient is to continue Zerbaxa. Objective vital signs Vital Sign Date Time Temp Pulse Resp B/P (MAP) Pulse Ox O2 Delivery O2 Flow Rate FiO2 02/12/25 19:00 112/46 02/12/25 18:45 85 12 99 02/12/25 18:05 0.0 21 02/12/25 18:00 Room Air* 02/12/25 04:01 98.3 98.3 Total Intake and Output 02/11/25 02/11/25 02/12/25 15:00 23:00 07:00 Intake Total 13729.483 ml 709.470 ml 425.278 ml Output Total 500 ml 900 ml Balance 25114.483 ml 209.470 ml -474.722 ml Gen: 79-year-old female in mild distress, morbidly obese, overall 3rd spacing with anasarca and intravascularly validation architect. Skin: Warm, dry, normal color and texture, no rash. HEENT: Normocephalic atraumatic, mucous membranes moist and pink. Neck: Cervical and supraclavicular nodes normal without enlargement, trachea is midline, thyroid gland is normal without masses. Pulmonary: Clear to auscultation and percussion bilaterally. Cardiac: Regular rate and rhythm. No murmur Abdomen: Soft, nontender, nondistended, bowel sounds present all 4 quadrants, no guarding, no rigidity, no organomegaly. Warm and dry, no rashes. Notable for serous oozing from sacral and buttock ulcers with some psoriatic component, scattered ecchymosis and blister on right upper arm, bilateral upper extremity ulcers, stage 12 ulcers on posterior thighs. Extremities: No cyanosis, clubbing, no edema Neuro: Cranial nerves II through XII grossly intact, normal affect and speech, no focal motor deficits. No signs of active infection noted, yet again. medications Current Medications Medications Dose Ordered Sig/Taran Route Start Time Stop Time Status Last Admin Dose Admin Ondansetron HCl 4 mg Q4HP PRN IV 01/31/25 19:30 02/12/25 16:49 4 MG Acetaminophen 650 mg Q6HP PRN PO 01/31/25 19:30 02/11/25 11:22 650 MG Nitroglycerin 0.4 mg Q5MINP PRN SL 01/31/25 19:30 Carbidopa/Levodopa 2 tab HS PO 01/31/25 22:00 02/09/25 20:52 2 TAB Albuterol 2.5 mg Q6HPRN PRN NEB 01/31/25 19:30 02/12/25 14:33 2.5 MG Acetaminophen/ Hydrocodone Bitart 1 tab Q6HPRN PRN PO 02/01/25 03:45 02/12/25 15:58 1 TAB Digoxin 125 mcg DAILY IV 02/02/25 10:00 02/12/25 10:00 125 MCG Diagnostic Test (Pha) 1 strip ACHS 02/03/25 17:00 02/12/25 16:50 1 STRIP Insulin Human Regular ACHS SC 02/03/25 17:00 Dextrose 50 ml UD PRN IV 02/03/25 16:45 02/11/25 06:54 50 ML Levothyroxine Sodium 100 mcg QAM@0600 PO 02/08/25 06:00 02/12/25 06:04 100 MCG Patient Own Medication 160 mg DAILY IV 02/09/25 10:00 UNV Patient Own Medication 1 g Q8H IV 02/08/25 12:30 UNV Ceftolozane/ Tazobactam 3 gm/ Dextrose 100 ml @ 100 mls/hr Q8HR IV 02/08/25 14:00 02/12/25 14:00 100 MLS/HR Enteral Nutritional Formula 240 ml TIDWM PO 02/09/25 12:00 02/12/25 18:00 240 ML Norepinephrine Bitartrate 250 ml @ 3.75 mls/hr Q24H IV 02/09/25 12:45 02/12/25 12:43 7.5 MLS/HR Betamethasone Dipropion Augmented 1 applic DAILY TOP 02/12/25 10:00 02/12/25 10:30 1 APPLIC Clotrimazole 1 applic DAILY TOP 02/12/25 10:00 02/12/25 10:41 1 APPLIC Patient Own Medication 1 DAILY TOP 02/12/25 10:00 02/12/25 10:00 1 Dopamine HCl/ Dextrose 250 ml @ 10.847 mls/ hr Q23H3M IV 02/11/25 18:30 02/12/25 02:00 10.847 MLS/HR Bumetanide 12.5 mg/Miscellaneous 50 ml @ 2 mls/hr Q24H IV 02/11/25 18:30 02/12/25 08:50 2 MLS/HR Enoxaparin Sodium 40 mg BID SC 02/12/25 22:00 Potassium Bicarbonate 25 meq BID PO 02/12/25 22:00 Fludrocortisone Acetate 0.1 mg BID PO 02/12/25 22:00 laboratory and microbiology Laboratory Tests 02/12/25 05:07 02/09/25 05:10 Test 02/12/25 05:07 Range/Units Serum Glucose 86 74-106 mg/dL Problem List/Assessment/Plan Problem List/Assessment/Plan TANESHA Marie 79-year-old female with past medical history includes congestive heart failure, chronic kidney disease, diabetes mellitus, hypertension, hypothyroidism, anemia, atrial fibrillation and tonsillectomy presents with altered mental status following a recent onet progressive lethargy following a recent hospitalization for sepsis. 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 Presently, she has sacral and buttock ulcers with serous drainage, suggestive of pressure injury and psoriatic flare, along with stage 12 ulcers on her posterior thighs and ecchymosis with blistering on both upper extremities. She required Levophed for hypotension in the ED and was started on levofloxacin due to allergies to penicillin and ceftriaxone. Labs show mild lactic acidosis, significant pyuria, and VRE with presumptive *Leidy albicans* in the urine. Imaging reveals cerebral volume loss on head CT and a chest X-ray showing cardiomegaly, left lower lobe opacity, and prominent pulmonary vasculature. She lives with family, who deny any substance abuse. Assessment: #Acute complicated urinary tract infection, with Enterococcus faecium VRE and presumptive Leidy albicans on gentamicin #Changed Hook's catheter with repeat culture on yeast likely normal luiz. #Sacral and buttock ulcers, including possible psoriatic involvement , negative blood culture from 01/31/2025 #Infected sacral ulcer #Septic shock, possibly due to more than one source of infection #Poor oral hygiene with dental caries, aspiration risk #Thrombocytopenia mild, limiting the use of linezolid #History of MDR Pseudomonas aeruginosa and ESBL E coli UTI history #Known allergy to ceftriaxone, morphine, penicillins and sulfa antibiotics #Recent sepsis related hospitalization in December 2024 #Past Surgical History of Tonsillectomy, negative for nasal MRSA colonization #Previous history of MRSA nasal colonization, status post decolonized #History of recurrent ESBL UTI #H/o Staphylococcus hominis, Staphylococcus auricularis, Staphylococcus epidermidis and ESBL E coli bacteremia in 2021 and 2018 respectively #intertrigo on topical nystatin antifungal powder - #Toxic versus metabolic encephalopathy secondary to sepsis #Diabetes mellitus # psoriasis #Hypovolemic hyponatremia #Yet to rule out digoxin toxicity #Anemia of chronic disease mixed with iron-deficiency anemia #[id number] protein energy malnutrition #Grade 3 obesity, chronically bed-bound #Congenital, horseshoe shaped kidney #Left hydronephrosis status post urethral stent #Heart failure with preserved ejection fraction #Acute kidney injury secondary to VMN #Chronic kidney disease (CKD) #H/o essential Hypertension #Hypothyroidism on levothyroxine #Hypovitaminosis D #Atrial fibrillation on Eliquis #Secondary hypercoagulable state #History of slow GI bleed #Parkinsonism #Restless leg syndrome #Osteoarthritis with or without component of psoriatic arthritis Plan: # patient is to continue Zerbaxa. # sputum culture ordered, pending # recommend albumin infusion # Please hold further IV Lasix drip cautiously, rehydrate along with high- protein diet for oncotic pressure. Will consult Nephrology for expert opinion. # Avoid overtreatment of urine culture organisms; current findings likely represent colonization. Urine culture most likely colonization, continue Zerbaxa. # Further wound assessment and management for sacral and posterior thigh ulcers, including wound care consult and assessment for concomitant psoriatic component. Discussed with Dr. Adler. Infectious Disease we will continue to follow up the patient. Thank you. Plan discussed with: Patient Dietary Evaluation Review Comments: 1. CCHO-60 2 gNa diet w 45g proein restriction 2. Try Devin for wound healing 3. Wt management 4. F/U with nephrology and updated lab values Expected Outcomes/Goals: Less uremic syndrome, controlled DM GREGG GALLOWAY RESIDENT Feb 12, 2025 20:04
[2025-02-12] MEDS: POTASSIUM EFFERVESENT TAB 25 MEQ PO SCH (22:08)
[2025-02-12] MEDS: FLUDROCORTISONE ACETATE 0.1 MG TAB PO SCH (22:08)
[2025-02-12] MEDS: ENOXAPARIN SOD 40 MG/0.4 ML SYRINGE SC SCH (22:09)
[2025-02-13] VITALS (132 sets, daily range): BP systolic 71–161; BP diastolic 15–118; PULSE 64–108; RESP 10–25; TEMP 92.7–95.5; O2SAT 93–100
[2025-02-13 05:07] LABS: Hemoglobin 8.0 g/dL (12.2-16.2)
[2025-02-13 05:10] LABS: Hematocrit 23.7 % (36.0-46.0); Mean Corpuscular Hemoglobin 27.7 pg (28.0-32.0); Mean Corpuscular Volume 81.8 fL (80.0-100.0)
[2025-02-13 05:29] LABS: Alkaline Phosphatase 102 U/L (46-116); Anion Gap 12 (5-15); BUN/Creatinine Ratio 56.6 (10.0-20.0); Bilirubin, Total 0.3 mg/dL (0.2-1.0); Calcium 9.1 mg/dL (8.7-10.4); Carbon Dioxide 21 mmol/L (20-31); Glucose 88 mg/dL (74-106); Magnesium 2.0 mg/dL (1.6-2.6); Potassium 3.7 mmol/L (3.5-5.1)
[2025-02-13 05:32] LABS: Alanine Aminotransferase < 9 U/L (7-40); Albumin 3.0 g/dL (3.2-4.8); Blood Urea Nitrogen 64 mg/dL (9-23); Chloride 96 mmol/L (98-107); Iron 18.0 ug/dL (50-170); Sodium 129 mmol/L (136-145); Total Iron Binding Capacity 189.0 ug/dL (250-425); Total Protein 4.8 g/dL (5.7-8.2)
[2025-02-13 06:29] LABS: Total Cells Counted 100.0 (100)
--- NOTE | 2025-02-13 09:30 | DVHPN2 ---
Subjective No new complaints Reviewed: Care Plan, H&P, Labs, Medications, Previous Orders, Radiology Changes from previous H/P or p: Changes Objective Vitals Vital Signs Date Time Temp Pulse Resp B/P (MAP) Pulse Ox O2 Delivery O2 Flow Rate FiO2 02/13/25 06:46 69 12 101/31 (54) 96 02/13/25 06:00 Room Air* 0 21 02/13/25 00:01 95.5 95.5 Intake/Output Intake and Output 02/13/25 07:00 Intake Total 1693.397 ml Output Total 975 ml Balance 718.397 ml Intake Oral 970 ml IV Total 723.397 ml Output Urine Total 975 ml # Bowel Movements 3 General Appearance: Alert, Other (Disoriented) HEENT: Atraumatic, PERRLA, EOMI Lungs: Other (Bilateral crackles. Decreased air movement bilaterally) Cardiovascular: Regular rate, Normal S1, Normal S2 Abdomen: Normal bowel sounds, Soft, No tenderness Musculoskeletal: Normal sensory function, Normal motor function Extremities: Other (2+ edema bilaterally in the lower extremities) Neuro: Strength at 5/5 X4 ext, Cranial nerves 3-12 NL Skin: Significant Lesion, Dry, Intact, Warm Psych/Mental Status: Mental status NL, Mood NL Medications Current Medications Medications Dose Ordered Sig/Taran Route Start Time Stop Time Status Last Admin Dose Admin Ondansetron HCl 4 mg Q4HP PRN IV 01/31/25 19:30 02/12/25 16:49 4 MG Acetaminophen 650 mg Q6HP PRN PO 01/31/25 19:30 02/11/25 11:22 650 MG Nitroglycerin 0.4 mg Q5MINP PRN SL 01/31/25 19:30 Carbidopa/Levodopa 2 tab HS PO 01/31/25 22:00 02/12/25 22:08 2 TAB Albuterol 2.5 mg Q6HPRN PRN NEB 01/31/25 19:30 02/12/25 14:33 2.5 MG Acetaminophen/ Hydrocodone Bitart 1 tab Q6HPRN PRN PO 02/01/25 03:45 02/13/25 03:40 1 TAB Digoxin 125 mcg DAILY IV 02/02/25 10:00 02/12/25 10:00 125 MCG Diagnostic Test (Pha) 1 strip ACHS 02/03/25 17:00 02/13/25 07:00 1 STRIP Insulin Human Regular ACHS SC 02/03/25 17:00 Dextrose 50 ml UD PRN IV 02/03/25 16:45 02/11/25 06:54 50 ML Levothyroxine Sodium 100 mcg QAM@0600 PO 02/08/25 06:00 02/13/25 07:52 100 MCG Patient Own Medication 160 mg DAILY IV 02/09/25 10:00 UNV Patient Own Medication 1 g Q8H IV 02/08/25 12:30 UNV Ceftolozane/ Tazobactam 3 gm/ Dextrose 100 ml @ 100 mls/hr Q8HR IV 02/08/25 14:00 02/13/25 06:12 100 MLS/HR Enteral Nutritional Formula 240 ml TIDWM PO 02/09/25 12:00 02/13/25 08:00 240 ML Norepinephrine Bitartrate 250 ml @ 3.75 mls/hr Q24H IV 02/09/25 12:45 02/12/25 12:43 7.5 MLS/HR Betamethasone Dipropion Augmented 1 applic DAILY TOP 02/12/25 10:00 02/12/25 10:30 1 APPLIC Clotrimazole 1 applic DAILY TOP 02/12/25 10:00 02/12/25 10:41 1 APPLIC Patient Own Medication 1 DAILY TOP 02/12/25 10:00 02/12/25 10:00 1 Dopamine HCl/ Dextrose 250 ml @ 10.847 mls/ hr Q23H3M IV 02/11/25 18:30 02/13/25 03:28 10.847 MLS/HR Bumetanide 12.5 mg/Miscellaneous 50 ml @ 2 mls/hr Q24H IV 02/11/25 18:30 02/12/25 08:50 2 MLS/HR Enoxaparin Sodium 40 mg BID SC 02/12/25 22:00 02/12/25 22:09 40 MG Potassium Bicarbonate 25 meq BID PO 02/12/25 22:00 02/12/25 22:08 25 MEQ Fludrocortisone Acetate 0.1 mg BID PO 02/12/25 22:00 02/12/25 22:08 0.1 MG Laboratory Results Laboratory Tests 02/13/25 04:44 Chemistry Test 02/13/25 04:44 Albumin 3.0 g/dL (3.2-4.8) L Calcium Level 9.1 mg/dL (8.7-10.4) Magnesium Level 2.0 mg/dL (1.6-2.6) Phosphorus Level 3.5 mg/dL (2.4-5.1) Total Protein 4.8 g/dL (5.7-8.2) L LFT Test 02/13/25 04:44 Alanine Aminotransferase (ALT) < 9 U/L (7-40) Alkaline Phosphatase 102 U/L (46-116) Aspartate Amino Transferase (AST) 16 U/L (13-40) Total Bilirubin 0.3 mg/dL (0.2-1.0) Urinalysis Test 01/31/25 16:30 02/08/25 11:45 Urine Hyaline Casts Few /lpf (0 - 2) Urine Mucus Few (None Seen) Urine Color Yellow (Yellow) Urine Clarity Cloudy (Clear) H Urine pH 5.5 (5.0-9.0) Urine Specific Bernie 1.013 (1.001-1.035) Urine Protein 1+ (Negative) H Urine Ketones Negative (Negative) Urine Blood 1+ /uL (Negative) H Urine Nitrite Negative (Negative) Urine Bilirubin Negative (Negative) Urine Urobilinogen Normal mg/dL (Negative) Urine Leukocyte Esterase 3+ /uL (Negative) Urine RBC 110 /hpf (0 - 4) Urine WBC Clumps Present /hpf (None Seen) Urine Microscopic WBC 1269 /HPF (0-5) H Urine Squamous Epithelial Cells Few /hpf (<5) Urine Bacteria Few /hpf (None Seen) H Urine Yeast (Budding) Loaded /hpf (None Seen) Urine Glucose Normal mg/dL (Normal) Microbiology Microbiology Date/Time Source Procedure Growth Status 02/08/25 22:15 Urine - Hook Port Urine Culture - Final Enterococcus faecalis Complete 02/08/25 20:11 Blood Blood Culture - Preliminary NO GROWTH AFTER 72 HOURS OF INCUBATION. Resulted 02/03/25 00:50 Nose MRSA Screen - Final Complete Assessment/Plan Assessment/Plan Acute metabolic encephalopathy Septic shock due to UTI UTI Recent sepsis with a wound infection due to Pseudomonas aeruginosa MDRO Morbid obesity Bed-bound Type 2 diabetes Acute kidney injury Left hydronephrosis Horseshoe kidney Status post ureteral stent Chronic anemia Hyponatremia Atrial fibrillation Heart failure with preserved ejection fraction Plan Broad-spectrum antibiotics: Levofloxacin and gentamicin Vasopressors as needed, norepinephrine drip Cardiology consult Lasix drip per Dr. Cifuentes Full code Discussed with the daughter at the bedside Advance directives discussed for 20 minute 02/03/2025: Continue IV antibiotics Vasopressors Lasix Central line to be done by emergency room physician Cardiology consultation Dr. Cifuentes Monitor closely 02/04/2025: Replace magnesium and potassium Continue IV antibiotics Infectious Disease consultation Vasopressors as needed Lasix drip Monitor closely The rest of the management will depend on the hospital course 02/05/25: IV antibiotics: Gentamicin and levofloxacin Taper Levophed off as tolerated Lasix Replace K+ and Mg 02/06/2025: Continue the current management Tapered off the Levophed as tolerated Continue Lasix Replace potassium magnesium as needed 02/07/2025: Taper off the Levophed drip as tolerated Downgrade to telemetry once she is off the Levophed Discontinue the gentamicin Replace magnesium and potassium as needed Discharge planning once she is off the Levophed drip 02/08/2025: Levophed and dopamine drip Replace potassium and magnesium as needed Restarted antibiotics per Dr. Cifuentes Monitor closely 02/09/2025: Start Lasix 40 mg IV twice a day Continue Levophed and dopamine drip as needed IV antibiotics per Infectious Disease Dr. Adler Monitor closely 02/10/25: Continue Lasix drip Levo Dopamine IV antibiotics 02/11/2025: Continue Levophed and dopamine drips IV antibiotics Lasix drip Replace potassium and magnesium Monitor closely 02/12/25: HFpEF: Bumex drip Sepsis: Levophed and dopamine drips Sepsis: Zerbaxa Hypokalemia: Replace K+ Hyponatremia 02/13/2025: Continue Bumex drip She is off the Levophed She is on dopamine She is on Zerbaxa Florinef Dr. Jauregui is following Resume home health upon discharge Plan discussed with: Patient Date of Service: Feb 13, 2025 Billing Provider: FALGUNI CM MD Common Visit Codes: [id number] INP/OBS CARE(HIGH) FALGUNI CM MD Feb 13, 2025 09:29
[2025-02-13] MEDS: BUDESONIDE (INHALATION) 0.5 MG/2 ML NEB NEB SCH (11:06)
--- NOTE | 2025-02-13 11:42 | DVHPN2 ---
Progress Note Date Seen: Feb 13, 2025 Medical Necessity Reason Pt with a Central, PICC or Fol: Yes The following are medically ne: Hook Catheter Subjective Changes from previous H/P or p: Changes (off levo now on florinef) Objective vital signs Vital Sign Date Time Temp Pulse Resp B/P (MAP) Pulse Ox O2 Delivery O2 Flow Rate FiO2 02/13/25 10:32 78 02/13/25 10:27 93/59 02/13/25 06:46 12 96 02/13/25 06:00 Room Air* 0 21 02/13/25 00:01 95.5 95.5 Total Intake and Output 02/12/25 02/12/25 02/13/25 15:00 23:00 07:00 Intake Total 339.776 ml 953.692 ml 399.929 ml Output Total 525 ml 450 ml Balance 339.776 ml 428.692 ml -50.071 ml medications Current Medications Medications Dose Ordered Sig/Taran Route Start Time Stop Time Status Last Admin Dose Admin Ondansetron HCl 4 mg Q4HP PRN IV 01/31/25 19:30 02/12/25 16:49 4 MG Acetaminophen 650 mg Q6HP PRN PO 01/31/25 19:30 02/11/25 11:22 650 MG Nitroglycerin 0.4 mg Q5MINP PRN SL 01/31/25 19:30 Carbidopa/Levodopa 2 tab HS PO 01/31/25 22:00 02/12/25 22:08 2 TAB Albuterol 2.5 mg Q6HPRN PRN NEB 01/31/25 19:30 02/13/25 11:06 2.5 MG Acetaminophen/ Hydrocodone Bitart 1 tab Q6HPRN PRN PO 02/01/25 03:45 02/13/25 03:40 1 TAB Digoxin 125 mcg DAILY IV 02/02/25 10:00 02/13/25 10:32 125 MCG Diagnostic Test (Pha) 1 strip ACHS 02/03/25 17:00 02/13/25 07:00 1 STRIP Insulin Human Regular ACHS SC 02/03/25 17:00 Dextrose 50 ml UD PRN IV 02/03/25 16:45 02/11/25 06:54 50 ML Levothyroxine Sodium 100 mcg QAM@0600 PO 02/08/25 06:00 02/13/25 07:52 100 MCG Patient Own Medication 160 mg DAILY IV 02/09/25 10:00 UNV Patient Own Medication 1 g Q8H IV 02/08/25 12:30 UNV Ceftolozane/ Tazobactam 3 gm/ Dextrose 100 ml @ 100 mls/hr Q8HR IV 02/08/25 14:00 02/13/25 06:12 100 MLS/HR Enteral Nutritional Formula 240 ml TIDWM PO 02/09/25 12:00 02/13/25 08:00 240 ML Norepinephrine Bitartrate 250 ml @ 3.75 mls/hr Q24H IV 02/09/25 12:45 02/12/25 12:43 7.5 MLS/HR Betamethasone Dipropion Augmented 1 applic DAILY TOP 02/12/25 10:00 02/13/25 10:37 1 APPLIC Clotrimazole 1 applic DAILY TOP 02/12/25 10:00 02/13/25 10:33 1 APPLIC Patient Own Medication 1 DAILY TOP 02/12/25 10:00 02/13/25 10:00 1 Dopamine HCl/ Dextrose 250 ml @ 10.847 mls/ hr Q23H3M IV 02/11/25 18:30 02/13/25 03:28 10.847 MLS/HR Bumetanide 12.5 mg/Miscellaneous 50 ml @ 2 mls/hr Q24H IV 02/11/25 18:30 02/13/25 10:27 2 MLS/HR Enoxaparin Sodium 40 mg BID SC 02/12/25 22:00 02/13/25 10:32 40 MG Potassium Bicarbonate 25 meq BID PO 02/12/25 22:00 02/13/25 10:30 25 MEQ Fludrocortisone Acetate 0.1 mg BID PO 02/12/25 22:00 02/13/25 10:40 0.1 MG Budesonide 0.5 mg BID NEB 02/13/25 10:00 02/13/25 11:06 0.5 MG Examination: GENERAL:Abnormal, LUNGS:Abnormal, CVS:Abnormal, SKIN:Abnormal laboratory and microbiology Laboratory Tests 02/13/25 04:44 Test 02/13/25 04:44 Range/Units Serum Glucose 88 74-106 mg/dL Microbiology Date/Time Source Procedure Growth Status 02/08/25 22:15 Urine - Hook Port Urine Culture - Final Enterococcus faecalis Complete 02/08/25 20:11 Blood Blood Culture - Preliminary NO GROWTH AFTER 72 HOURS OF INCUBATION. Resulted 02/03/25 00:50 Nose MRSA Screen - Final Complete Problem List/Assessment/Plan Problem List/Assessment/Plan Acute kidney injury hemodynamic mediated etiology Hyponatremia in the setting of anasarca Hypokalemia AFib acute diastolic heart failure Septic Shock [place] kidney history of ureteral stent Status post TAVR Hypertension History of DVT anemia w/ Iron depletion Bumex drip goal to achieve negative fluid balance Significant anasarca continue drip BP support potassium daily while on diuresis Mg and Phos wnL IV iron , check ferritin level No indication for dialysis at this time Plan discussed with: Patient My Orders My Orders Orders - MICHELA AMEZQUITA MD Procedure Category Date Status Time Potassium Effervesent PHA 02/12/25 In Process Tab (Klor-Con/Ef) 22:00 Dietary Evaluation Review Comments: 1. CCHO-60 2 gNa diet w 45g proein restriction 2. Try Devin for wound healing 3. Wt management 4. F/U with nephrology and updated lab values Expected Outcomes/Goals: Less uremic syndrome, controlled DM Critical Care Time (mins): 33 MICHELA AMEZQUITA MD Feb 13, 2025 11:42
[2025-02-13] MEDS: IRON SUCROSE COMPLEX 110 ML IV SCH (12:00)
--- NOTE | 2025-02-13 12:51 | DVHPN2 ---
Progress Note - Dictate Date Seen: Feb 13, 2025 Medical Necessity Reason Pt with a Central, PICC or Fol: Yes The following are medically ne: Hook Catheter Subjective SHE BECAME UNRESPONSIVE BLOOD SUGAR 166 SHE WAS MILDLY HYPOTENSIVE HAD LEFT SIGHT ARM MOVEMENT LASTED ABOUT 10 MINUTES TOTAL/ NO CLEAR POST ICTAL PERIOD PRESENTATION CONSISTENT WITH METABOLIC SYNDROME/ INFECTION ESPECIALLY WITH HER RECENT ADMISSION FOR SEPSIS/ BACTEREMIA RECENT HX OF HYPOTENSION POSITIVE BLOOD CX STAPH PRODUCTIVE COUGH HYPOXIA SEVERE ANEMIA HX OF BLEEDING DIATHESIS NOW BEING TRANSFUSE PMH; HEMATURIA HX OF ORGANIC HD S/P TAVR HX OF AV STENOSIS HTN HFpEF DIASTOLIC DYSFUNCTION AFIB ON SOTALOL HYPERCOAGULABLE STATE HX OF DVT MORBID OBESITY 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 ANEMIA HYPONATREMIA DECUB STAGE II MULTIPLE ORGANISM PSEUDOMONAS vital signs Vital Sign Date Time Temp Pulse Resp B/P (MAP) Pulse Ox O2 Delivery O2 Flow Rate FiO2 02/13/25 11:11 76 13 99 02/13/25 11:06 Room Air* 0 21 02/13/25 10:27 93/59 02/13/25 00:01 95.5 95.5 Total Intake and Output 02/12/25 02/12/25 02/13/25 15:00 23:00 07:00 Intake Total 339.776 ml 953.692 ml 399.929 ml Output Total 525 ml 450 ml Balance 339.776 ml 428.692 ml -50.071 ml medications Current Medications Medications Dose Ordered Sig/Taran Route Start Time Stop Time Status Last Admin Dose Admin Ondansetron HCl 4 mg Q4HP PRN IV 01/31/25 19:30 02/12/25 16:49 4 MG Acetaminophen 650 mg Q6HP PRN PO 01/31/25 19:30 02/11/25 11:22 650 MG Nitroglycerin 0.4 mg Q5MINP PRN SL 01/31/25 19:30 Carbidopa/Levodopa 2 tab HS PO 01/31/25 22:00 02/12/25 22:08 2 TAB Albuterol 2.5 mg Q6HPRN PRN NEB 01/31/25 19:30 02/13/25 11:06 2.5 MG Acetaminophen/ Hydrocodone Bitart 1 tab Q6HPRN PRN PO 02/01/25 03:45 02/13/25 03:40 1 TAB Digoxin 125 mcg DAILY IV 02/02/25 10:00 02/13/25 10:32 125 MCG Diagnostic Test (Pha) 1 strip ACHS 02/03/25 17:00 02/13/25 07:00 1 STRIP Insulin Human Regular ACHS SC 02/03/25 17:00 Dextrose 50 ml UD PRN IV 02/03/25 16:45 02/11/25 06:54 50 ML Levothyroxine Sodium 100 mcg QAM@0600 PO 02/08/25 06:00 02/13/25 07:52 100 MCG Patient Own Medication 160 mg DAILY IV 02/09/25 10:00 UNV Patient Own Medication 1 g Q8H IV 02/08/25 12:30 UNV Ceftolozane/ Tazobactam 3 gm/ Dextrose 100 ml @ 100 mls/hr Q8HR IV 02/08/25 14:00 02/13/25 06:12 100 MLS/HR Enteral Nutritional Formula 240 ml TIDWM PO 02/09/25 12:00 02/13/25 08:00 240 ML Norepinephrine Bitartrate 250 ml @ 3.75 mls/hr Q24H IV 02/09/25 12:45 02/12/25 12:43 7.5 MLS/HR Betamethasone Dipropion Augmented 1 applic DAILY TOP 02/12/25 10:00 02/13/25 10:37 1 APPLIC Clotrimazole 1 applic DAILY TOP 02/12/25 10:00 02/13/25 10:33 1 APPLIC Patient Own Medication 1 DAILY TOP 02/12/25 10:00 02/13/25 10:00 1 Dopamine HCl/ Dextrose 250 ml @ 10.847 mls/ hr Q23H3M IV 02/11/25 18:30 02/13/25 03:28 10.847 MLS/HR Bumetanide 12.5 mg/Miscellaneous 50 ml @ 2 mls/hr Q24H IV 02/11/25 18:30 02/13/25 10:27 2 MLS/HR Enoxaparin Sodium 40 mg BID SC 02/12/25 22:00 02/13/25 10:32 40 MG Potassium Bicarbonate 25 meq BID PO 02/12/25 22:00 02/13/25 10:30 25 MEQ Fludrocortisone Acetate 0.1 mg BID PO 02/12/25 22:00 02/13/25 10:40 0.1 MG Budesonide 0.5 mg BID NEB 02/13/25 10:00 02/13/25 11:06 0.5 MG Iron Sucrose 110 ml @ 110 mls/hr DAILY@1200 IV 02/13/25 12:00 02/17/25 12:59 laboratory and microbiology Laboratory Tests 02/13/25 04:44 Test 02/13/25 04:44 Range/Units Serum Glucose 88 74-106 mg/dL Problem List SHE BECAME UNRESPONSIVE BLOOD SUGAR 166 HYPOTENSIVE HAD LEFT SIGHT ARM MOVEMENT LASTED ABOUT 10 MINUTES TOTAL/ NO CLEAR POST ICTAL PERIOD PRESENTATION CONSISTENT WITH METABOLIC SYNDROME/ INFECTION ESPECIALLY WITH HER RECENT ADMISSION FOR SEPSIS/ BACTEREMIA RECENT HX OF HYPOTENSION POSITIVE BLOOD CX STAPH PRODUCTIVE COUGH HYPOXIA SEVERE ANEMIA HX OF BLEEDING DIATHESIS NOW BEING TRANSFUSE PMH; HEMATURIA HX OF ORGANIC HD S/P TAVR HX OF AV STENOSIS HTN HFpEF DIASTOLIC DYSFUNCTION AFIB ON SOTALOL HYPERCOAGULABLE STATE HX OF DVT MORBID OBESITY 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 ANEMIA HYPONATREMIA PSEUDOMONAS INFECTION Assessment/Plan ABX PRESSORS WOUND CARE TRIPLE LUMEN INSERTION DC LASIX LABS START DOPAMINE RENAL PERFUSION STOOL OCCULT BLOOD SECONDARY TO HIGH BUN / CR RATIO WILL RESTART LASIX IN AM 3% saline resume gent and meropanam DC ABOVE ABX TREATMENT FOR YEAST AND VRE ENTEROCOCCUS titrate off levo START FLORINEF Dietary Evaluation Review Comments: 1. CCHO-60 2 gNa diet w 45g proein restriction 2. Try Devin for wound healing 3. Wt management 4. F/U with nephrology and updated lab values Expected Outcomes/Goals: Less uremic syndrome, controlled DM Plan discussed with: Patient Critical Care Time(min): 35 MONTRELL RANKIN MD Feb 13, 2025 12:51
--- NOTE | 2025-02-13 17:25 | DVHSR ---
APPROVED REPORT EXAM: Two-dimensional and M-mode echocardiogram with Doppler and color Doppler. Blood Pressure: 101/31 mmHg INDICATION EF RISK FACTORS Height: 5'5", Weight: 254 DIMENSIONS LVDd4.8 (3.8-5.7cm)LA (2D)5.3 (1.9-4.0cm)Aortic Root (2.0-3.7cm) LVDs3.1 (2.5-4.0cm)LA (MM) (1.9-4.0cm)Aortic Cusp Exc (1.5-2.0cm) EF (%) 65.0 (55-70%)Rt. Atrium5.0 (1.9-4.0cm)Asc. Aorta cm IVSd1.0 (0.7-1.1cm)RV (D)3.7 (1.8-2.4cm) Mitral Valve MitralMitral Stenosis E wavem/sMV Mean GR.5mmHg A wavem/sMV Peak GR.10mmHg E/A ratio0.02D MVAcm2 DECEL [employer] 1/2 [id number] IVRTmsDop MVA2.96cm2 Aortic Valve Aortic ValveAortic Stenosis V11.57m/Chikis Mean GR.20mmHg V22.94m/Chikis Peak GR.35mmHg LVOT Diameter1.8 (1.8-2.4cm)Doppler AVA1.36cm2 Pulmonic Valve V20.90m/s Tricuspid Valve TR Velocity2.29m/s [id number] Other Information Quality : Technically LimitedRhythm : Technically limited study due to body habitus. Conclusion MILD LVH AND MILD LV DIASTOLIC DYSFUNCTION LV EF IS 65% VERY HEAVILY CALCIFIED AORTIC LEAFLETS WITH DECREASED OPENING PEAK AORTIC GRADIENT IS 35 MM OF HG AND MEAN GRADIENT IS 20 MM OF HG AORTIC VALVE AREA IS 1.3 CM SQUARE AND IS REDUCED MODERATE DEGREE AORTIC STENOSIS MODERATELY DILATED RV.RA AND LA MODERATE DEGREE MR NO EFFUSION
[2025-02-13 19:10] LABS: Hematocrit 24.7 % (36.0-46.0); Hemoglobin 8.2 g/dL (12.2-16.2); Mean Corpuscular Hemoglobin 27.5 pg (28.0-32.0); Mean Corpuscular Volume 82.1 fL (80.0-100.0); Nucleated Red Blood Cells % 0.6 %
--- NOTE | 2025-02-13 19:28 | DVHPN2 ---
Consult Progress Note Date Seen: Feb 13, 2025 Subjective Other Systems: Patient seen at bedside. Patient is off pressors. Sacral wound has no discharge. Objective vital signs Vital Sign Date Time Temp Pulse Resp B/P (MAP) Pulse Ox O2 Delivery O2 Flow Rate FiO2 02/13/25 16:00 20 97 Room Air* 0 21 02/13/25 16:00 74 02/13/25 12:45 124/87 02/13/25 00:01 95.5 95.5 Total Intake and Output 02/12/25 02/12/25 02/13/25 15:00 23:00 07:00 Intake Total 339.776 ml 953.692 ml 399.929 ml Output Total 525 ml 450 ml Balance 339.776 ml 428.692 ml -50.071 ml medications Current Medications Medications Dose Ordered Sig/Taran Route Start Time Stop Time Status Last Admin Dose Admin Ondansetron HCl 4 mg Q4HP PRN IV 01/31/25 19:30 02/13/25 16:26 4 MG Acetaminophen 650 mg Q6HP PRN PO 01/31/25 19:30 02/11/25 11:22 650 MG Nitroglycerin 0.4 mg Q5MINP PRN SL 01/31/25 19:30 Carbidopa/Levodopa 2 tab HS PO 01/31/25 22:00 02/12/25 22:08 2 TAB Albuterol 2.5 mg Q6HPRN PRN NEB 01/31/25 19:30 02/13/25 11:06 2.5 MG Acetaminophen/ Hydrocodone Bitart 1 tab Q6HPRN PRN PO 02/01/25 03:45 02/13/25 03:40 1 TAB Digoxin 125 mcg DAILY IV 02/02/25 10:00 02/13/25 10:32 125 MCG Diagnostic Test (Pha) 1 strip ACHS 02/03/25 17:00 02/13/25 18:29 1 STRIP Insulin Human Regular ACHS SC 02/03/25 17:00 Dextrose 50 ml UD PRN IV 02/03/25 16:45 02/11/25 06:54 50 ML Levothyroxine Sodium 100 mcg QAM@0600 PO 02/08/25 06:00 02/13/25 07:52 100 MCG Patient Own Medication 160 mg DAILY IV 02/09/25 10:00 UNV Patient Own Medication 1 g Q8H IV 02/08/25 12:30 UNV Ceftolozane/ Tazobactam 3 gm/ Dextrose 100 ml @ 100 mls/hr Q8HR IV 02/08/25 14:00 02/13/25 14:00 100 MLS/HR Enteral Nutritional Formula 240 ml TIDWM PO 02/09/25 12:00 02/13/25 18:29 240 ML Norepinephrine Bitartrate 250 ml @ 3.75 mls/hr Q24H IV 02/09/25 12:45 02/12/25 12:43 7.5 MLS/HR Betamethasone Dipropion Augmented 1 applic DAILY TOP 02/12/25 10:00 02/13/25 10:37 1 APPLIC Clotrimazole 1 applic DAILY TOP 02/12/25 10:00 02/13/25 10:33 1 APPLIC Patient Own Medication 1 DAILY TOP 02/12/25 10:00 02/13/25 10:00 1 Dopamine HCl/ Dextrose 250 ml @ 10.847 mls/ hr Q23H3M IV 02/11/25 18:30 02/13/25 03:28 10.847 MLS/HR Bumetanide 12.5 mg/Miscellaneous 50 ml @ 2 mls/hr Q24H IV 02/11/25 18:30 02/13/25 10:27 2 MLS/HR Enoxaparin Sodium 40 mg BID SC 02/12/25 22:00 02/13/25 10:32 40 MG Potassium Bicarbonate 25 meq BID PO 02/12/25 22:00 02/13/25 10:30 25 MEQ Fludrocortisone Acetate 0.1 mg BID PO 02/12/25 22:00 02/13/25 10:40 0.1 MG Budesonide 0.5 mg BID NEB 02/13/25 10:00 02/13/25 11:06 0.5 MG Iron Sucrose 110 ml @ 110 mls/hr DAILY@1200 IV 02/13/25 12:00 02/17/25 12:59 02/13/25 12:00 110 MLS/HR laboratory and microbiology Laboratory Tests 02/13/25 18:23 02/13/25 04:44 Test 02/13/25 04:44 Range/Units Serum Glucose 88 74-106 mg/dL Problem List/Assessment/Plan Problem List/Assessment/Plan Assessment: #Acute complicated urinary tract infection, with Enterococcus faecium VRE and presumptive Leidy albicans on gentamicin #Changed Hook's catheter with repeat culture on yeast likely normal luiz. #Sacral and buttock ulcers, including possible psoriatic involvement , negative blood culture from 01/31/2025 #Infected sacral ulcer #Septic shock, possibly due to more than one source of infection #Poor oral hygiene with dental caries, aspiration risk #Thrombocytopenia mild, limiting the use of linezolid #History of MDR Pseudomonas aeruginosa and ESBL E coli UTI history #Known allergy to ceftriaxone, morphine, penicillins and sulfa antibiotics #Recent sepsis related hospitalization in December 2024 #Past Surgical History of Tonsillectomy, negative for nasal MRSA colonization #Previous history of MRSA nasal colonization, status post decolonized #History of recurrent ESBL UTI #H/o Staphylococcus hominis, Staphylococcus auricularis, Staphylococcus epidermidis and ESBL E coli bacteremia in 2021 and 2018 respectively #intertrigo on topical nystatin antifungal powder - #Toxic versus metabolic encephalopathy secondary to sepsis #Diabetes mellitus # psoriasis #Hypovolemic hyponatremia #Yet to rule out digoxin toxicity #Anemia of chronic disease mixed with iron-deficiency anemia #[id number] protein energy malnutrition #Grade 3 obesity, chronically bed-bound #Congenital, horseshoe shaped kidney #Left hydronephrosis status post urethral stent #Heart failure with preserved ejection fraction #Acute kidney injury secondary to VMN #Chronic kidney disease (CKD) #H/o essential Hypertension #Hypothyroidism on levothyroxine #Hypovitaminosis D #Atrial fibrillation on Eliquis #Secondary hypercoagulable state #History of slow GI bleed #Parkinsonism #Restless leg syndrome #Osteoarthritis with or without component of psoriatic arthritis Plan: # No ongoing signs of infection # Due to increased WBC count continue antibiotics for next 24 hours, discontinue tomorrow # Using IV iron in septic shock is contraindicated. However do not stop IV iron since there is no signs of active infection. # Patient has hyponatremia, increased BUN, on Bumex drip, not much urine after diuresis. Highly consider volume depletion is the cause of hypotension, Do not suspect infection is the cause of hypotension # Plan for diuresis deferred to vice president for philanthropy # Acquire sputum culture concerned of untreated infection # If sepsis continues to be as concern contact ID before restarting antibiotics. # sputum culture ordered, pending # recommend albumin infusion # Please hold further IV Lasix drip cautiously, rehydrate along with high- protein diet for oncotic pressure. Will consult Nephrology for expert opinion. # Avoid overtreatment of urine culture organisms; current findings likely represent colonization. Urine culture most likely colonization, continue Zerbaxa. # Further wound assessment and management for sacral and posterior thigh ulcers, including wound care consult and assessment for concomitant psoriatic component. Discussed with Dr. Adler. Infectious Disease we will continue to follow up the patient. Thank you. Plan discussed with: Patient Plan discussed with: Patient Dietary Evaluation Review Comments: 1. CCHO-60 2 gNa diet w 45g proein restriction 2. Try Devin for wound healing 3. Wt management 4. F/U with nephrology and updated lab values Expected Outcomes/Goals: Less uremic syndrome, controlled DM LAQUITA VACA RESIDENT Feb 13, 2025 19:28
[2025-02-13] MEDS: BUMETANIDE 2.5mg/10ml (0.25 mg/ml) INJ IV SCH (22:33)
--- NOTE | 2025-02-13 22:47 | DVHPN2 ---
[facility] DOS: 02/13/25 Patient seen and examined at bedside. Breathing comfortably on room air. Overnight events reviewed. HPI: An 79-year-old woman with PMHx of CHF, chronic kidney disease, diabetes mellitus, hypertension, AFib, thyroid disease and anemia who presented to ED on 02/01/25 for evaluation of altered mental status. Patient was recently discharged after being treated for sepsis. Patient was acting lethargic and altered on day prior to presentation, therefore family brought her in for further evaluation. Patient was lethargic, oriented times two on day of presentation. No unilateral weakness noted or slurred speech. No cardiac or respiratory symptoms. Patient was admitted for further care. Pulmonary consultation is requested for evaluation and management d/t pleural effusions. Past Medical History CHF, chronic kidney disease, diabetes mellitus, hypertension, thyroid, anemia, AFib Past Surgical History Tonsillectomy Family History Noncontributory Social History No smoking, alcohol or illicit drug use. Medications: Reviewed. Allergies: Penicillins (Unverified Allergy, Severe, 03/16/15) Sulfa Antibiotics (Unverified Allergy, Severe, 03/16/15) Morphine (Verified Allergy, Intermediate, ALTERED, 01/31/18) Ceftriaxone (Verified Allergy, Unknown, 01/31/18) Reviewed: Care Plan, H&P, Labs, Medications, Previous Orders, Radiology Changes from previous H/P or p: No Changes Objective Vitals Vital Signs Date Time Temp Pulse Resp B/P (MAP) Pulse Ox O2 Delivery O2 Flow Rate FiO2 02/13/25 22:33 107/86 02/13/25 21:49 64 16 100 02/13/25 21:39 Room Air 02/13/25 21:39 0 21 02/13/25 19:45 95.5 203.9 Intake/Output Intake and Output 02/13/25 07:00 Intake Total 1693.397 ml Output Total 975 ml Balance 718.397 ml Intake Oral 970 ml IV Total 723.397 ml Output Urine Total 975 ml # Bowel Movements 3 General Appearance: Alert, Other (Disoriented) HEENT: Atraumatic, PERRLA, EOMI Lungs: Other (Bilateral crackles. Decreased air movement bilaterally) Cardiovascular: Regular rate, Normal S1, Normal S2 Abdomen: Normal bowel sounds, Soft, No tenderness Musculoskeletal: Normal sensory function, Normal motor function Extremities: Other (2+ edema bilaterally in the lower extremities) Neuro: Strength at 5/5 X4 ext, Cranial nerves 3-12 NL Skin: Significant Lesion, Dry, Intact, Warm Psych/Mental Status: Mental status NL, Mood NL Medications Current Medications Medications Dose Ordered Sig/Taran Route Start Time Stop Time Status Last Admin Dose Admin Ondansetron HCl 4 mg Q4HP PRN IV 01/31/25 19:30 02/13/25 16:26 4 MG Acetaminophen 650 mg Q6HP PRN PO 01/31/25 19:30 02/11/25 11:22 650 MG Nitroglycerin 0.4 mg Q5MINP PRN SL 01/31/25 19:30 Carbidopa/Levodopa 2 tab HS PO 01/31/25 22:00 02/13/25 22:41 2 TAB Albuterol 2.5 mg Q6HPRN PRN NEB 01/31/25 19:30 02/13/25 21:39 2.5 MG Acetaminophen/ Hydrocodone Bitart 1 tab Q6HPRN PRN PO 02/01/25 03:45 02/13/25 03:40 1 TAB Digoxin 125 mcg DAILY IV 02/02/25 10:00 02/13/25 10:32 125 MCG Diagnostic Test (Pha) 1 strip ACHS 02/03/25 17:00 02/13/25 18:29 1 STRIP Insulin Human Regular ACHS SC 02/03/25 17:00 Dextrose 50 ml UD PRN IV 02/03/25 16:45 02/11/25 06:54 50 ML Levothyroxine Sodium 100 mcg QAM@0600 PO 02/08/25 06:00 02/13/25 07:52 100 MCG Patient Own Medication 160 mg DAILY IV 02/09/25 10:00 UNV Patient Own Medication 1 g Q8H IV 02/08/25 12:30 UNV Ceftolozane/ Tazobactam 3 gm/ Dextrose 100 ml @ 100 mls/hr Q8HR IV 02/08/25 14:00 02/13/25 22:34 100 MLS/HR Enteral Nutritional Formula 240 ml TIDWM PO 02/09/25 12:00 02/13/25 18:29 240 ML Norepinephrine Bitartrate 250 ml @ 3.75 mls/hr Q24H IV 02/09/25 12:45 02/12/25 12:43 7.5 MLS/HR Betamethasone Dipropion Augmented 1 applic DAILY TOP 02/12/25 10:00 02/13/25 10:37 1 APPLIC Clotrimazole 1 applic DAILY TOP 02/12/25 10:00 02/13/25 10:33 1 APPLIC Patient Own Medication 1 DAILY TOP 02/12/25 10:00 02/13/25 10:00 1 Dopamine HCl/ Dextrose 250 ml @ 10.847 mls/ hr Q23H3M IV 02/11/25 18:30 02/13/25 03:28 10.847 MLS/HR Enoxaparin Sodium 40 mg BID SC 02/12/25 22:00 02/13/25 22:42 40 MG Potassium Bicarbonate 25 meq BID PO 02/12/25 22:00 02/13/25 22:34 25 MEQ Fludrocortisone Acetate 0.1 mg BID PO 02/12/25 22:00 02/13/25 22:34 0.1 MG Budesonide 0.5 mg BID NEB 02/13/25 10:00 02/13/25 21:39 0.5 MG Iron Sucrose 110 ml @ 110 mls/hr DAILY@1200 IV 02/13/25 12:00 02/17/25 12:59 02/13/25 12:00 110 MLS/HR Bumetanide 2 mg TID IV 02/13/25 22:00 02/13/25 22:33 2 MG Laboratory Results Laboratory Tests 02/13/25 04:44 02/13/25 18:23 Chemistry Test 02/13/25 04:44 Albumin 3.0 g/dL (3.2-4.8) L Calcium Level 9.1 mg/dL (8.7-10.4) Magnesium Level 2.0 mg/dL (1.6-2.6) Phosphorus Level 3.5 mg/dL (2.4-5.1) Total Protein 4.8 g/dL (5.7-8.2) L LFT Test 02/13/25 04:44 Alanine Aminotransferase (ALT) < 9 U/L (7-40) Alkaline Phosphatase 102 U/L (46-116) Aspartate Amino Transferase (AST) 16 U/L (13-40) Total Bilirubin 0.3 mg/dL (0.2-1.0) Urinalysis Test 01/31/25 16:30 02/08/25 11:45 Urine Hyaline Casts Few /lpf (0 - 2) Urine Mucus Few (None Seen) Urine Color Yellow (Yellow) Urine Clarity Cloudy (Clear) H Urine pH 5.5 (5.0-9.0) Urine Specific [place] 1.013 (1.001-1.035) Urine Protein 1+ (Negative) H Urine Ketones Negative (Negative) Urine Blood 1+ /uL (Negative) H Urine Nitrite Negative (Negative) Urine Bilirubin Negative (Negative) Urine Urobilinogen Normal mg/dL (Negative) Urine Leukocyte Esterase 3+ /uL (Negative) Urine RBC 110 /hpf (0 - 4) Urine WBC Clumps Present /hpf (None Seen) Urine Microscopic WBC 1269 /HPF (0-5) H Urine Squamous Epithelial Cells Few /hpf (<5) Urine Bacteria Few /hpf (None Seen) H Urine Yeast (Budding) Loaded /hpf (None Seen) Urine Glucose Normal mg/dL (Normal) Microbiology Microbiology Date/Time Source Procedure Growth Status 02/08/25 22:15 Urine - Hook Port Urine Culture - Final Enterococcus faecalis Complete 02/08/25 20:11 Blood Blood Culture - Final NO GROWTH AFTER 5 DAYS OF INCUBATION. Complete 02/03/25 00:50 Nose MRSA Screen - Final Complete Assessment/Plan Assessment/Plan Impression: Acute metabolic encephalopathy Septic shock due to UTI Morbid obesity, BMI 42.3 Snoring, likely ARPAN Urinary tract infection Congestive heart failure (HFpEF) Hyponatremia Pleural effusions Atelectasis Events: Breathing on room air Supplemental oxygen PRN Continue bronchodilators Continue Pulmicort Wheezing is improving w/ Pulmicort BID Continue antibiotics Incentive spirometry Patient is off dopamine On Florinef. Monitor hemoglobin Continue IV iron supplementation Continue Bumex drip for diuresis Monitor renal function Monitor electrolytes. Supplement as necessary. Nephrology recommendations appreciated. Labs and imaging reviewed. Rest of plan as noted below. Plan: Supplemental oxygen PRN Titrate to keep O2 sats above 92%. Bronchodilators PRN. Continue antibiotics Incentive spirometry Follow up Cardiology recs Diurese to euvolemia Monitor renal function. Monitor electrolytes. Supplement as necessary. Monitor sodium Monitor ins and outs. DVT prophylaxis - Lovenox. Prognosis: Poor given patient's multiple co-morbidities. Condition: Critical Rest of plan per hospitalist and other consultants. A total of 35 minutes of critical care time was spent reviewing the patient record, examining the patient, making a diagnostic and therapeutic plan, discussing this plan with the medical personnel, following up on diagnostic studies and following the patient for clinical stability excluding any and all procedures. At least 50% of this time was spent in direct, [id number] contact. Thank you, Dr. Castaneda, for allowing me to participate in this patient's care. Further recommendations will depend on the patient's clinical course. Please do not hesitate to contact me if you have any questions or concerns. This medical document was created using an electronic medical record system with [employer] dictation system. Although these documentations are being carefully reviewed, there may still be some phonetic and typographical changes. The errors are purely typographical, due to imperfection on the software program, and do not reflect any compromise in the patient's medical care. Plan discussed with: Patient, Other (RN Tawnya) My Orders Orders - BENITO WILLARD MD Procedure Category Date Status Time Budesonide PHA 02/13/25 In Process (Inhalation) 10:00 Date of Service: Feb 13, 2025 Billing Provider: BENITO WILLARD MD Common Visit Codes: [id number] INP/OBS CARE(HIGH) BENITO WILLARD MD Feb 13, 2025 22:47
[2025-02-14] VITALS (80 sets, daily range): BP systolic 51–182; BP diastolic 22–151; PULSE 54–101; RESP 10–25; TEMP 80.2–97.7; O2SAT 95–100
[2025-02-14 05:39] LABS: Anion Gap 14 (5-15); Sodium 141 mmol/L (136-145)
[2025-02-14 05:42] LABS: Carbon Dioxide 13 mmol/L (20-31); Chloride 114 mmol/L (98-107)
[2025-02-14 05:44] LABS: Potassium 2.1 mmol/L (3.5-5.1)
[2025-02-14 05:45] LABS: BUN/Creatinine Ratio 62.9 (10.0-20.0)
[2025-02-14 05:48] LABS: Blood Urea Nitrogen 44 mg/dL (9-23); Glucose 68 mg/dL (74-106)
[2025-02-14] MEDS: POTASSIUM EFFERVESENT TAB 25 MEQ PO SCH (09:47)
--- NOTE | 2025-02-14 09:51 | DVHPN2 ---
Subjective No new complaints Reviewed: Care Plan, H&P, Labs, Medications, Previous Orders, Radiology Changes from previous H/P or p: Changes Objective Vitals Vital Signs Date Time Temp Pulse Resp B/P (MAP) Pulse Ox O2 Delivery O2 Flow Rate FiO2 02/14/25 06:30 68 12 59/39 (46) 99 02/14/25 06:00 Room Air* 0 21 02/14/25 00:21 94.0 94.0 Intake/Output Intake and Output 02/14/25 07:00 Intake Total 950 ml Output Total 550 ml Balance 400 ml Intake Oral 950 ml Output Urine Total 550 ml # Bowel Movements 4 General Appearance: Alert, Other (Disoriented) HEENT: Atraumatic, PERRLA, EOMI Lungs: Other (Bilateral crackles. Decreased air movement bilaterally) Cardiovascular: Regular rate, Normal S1, Normal S2 Abdomen: Normal bowel sounds, Soft, No tenderness Musculoskeletal: Normal sensory function, Normal motor function Extremities: Other (2+ edema bilaterally in the lower extremities) Neuro: Strength at 5/5 X4 ext, Cranial nerves 3-12 NL Skin: Significant Lesion, Dry, Intact, Warm Psych/Mental Status: Mental status NL, Mood NL Medications Current Medications Medications Dose Ordered Sig/Taran Route Start Time Stop Time Status Last Admin Dose Admin Ondansetron HCl 4 mg Q4HP PRN IV 01/31/25 19:30 02/14/25 07:39 4 MG Acetaminophen 650 mg Q6HP PRN PO 01/31/25 19:30 02/11/25 11:22 650 MG Nitroglycerin 0.4 mg Q5MINP PRN SL 01/31/25 19:30 Carbidopa/Levodopa 2 tab HS PO 01/31/25 22:00 02/13/25 22:41 2 TAB Albuterol 2.5 mg Q6HPRN PRN NEB 01/31/25 19:30 02/13/25 21:39 2.5 MG Acetaminophen/ Hydrocodone Bitart 1 tab Q6HPRN PRN PO 02/01/25 03:45 02/13/25 03:40 1 TAB Digoxin 125 mcg DAILY IV 02/02/25 10:00 02/13/25 10:32 125 MCG Diagnostic Test (Pha) 1 strip ACHS 02/03/25 17:00 02/14/25 07:00 1 STRIP Insulin Human Regular ACHS SC 02/03/25 17:00 Dextrose 50 ml UD PRN IV 02/03/25 16:45 02/11/25 06:54 50 ML Levothyroxine Sodium 100 mcg QAM@0600 PO 02/08/25 06:00 02/14/25 05:38 100 MCG Patient Own Medication 160 mg DAILY IV 02/09/25 10:00 UNV Patient Own Medication 1 g Q8H IV 02/08/25 12:30 UNV Ceftolozane/ Tazobactam 3 gm/ Dextrose 100 ml @ 100 mls/hr Q8HR IV 02/08/25 14:00 02/14/25 06:18 100 MLS/HR Enteral Nutritional Formula 240 ml TIDWM PO 02/09/25 12:00 02/14/25 09:01 240 ML Betamethasone Dipropion Augmented 1 applic DAILY TOP 02/12/25 10:00 02/13/25 10:37 1 APPLIC Clotrimazole 1 applic DAILY TOP 02/12/25 10:00 02/13/25 10:33 1 APPLIC Patient Own Medication 1 DAILY TOP 02/12/25 10:00 02/13/25 10:00 1 Enoxaparin Sodium 40 mg BID SC 02/12/25 22:00 02/13/25 22:42 40 MG Budesonide 0.5 mg BID NEB 02/13/25 10:00 02/13/25 21:39 0.5 MG Iron Sucrose 110 ml @ 110 mls/hr DAILY@1200 IV 02/13/25 12:00 02/17/25 12:59 02/13/25 12:00 110 MLS/HR Bumetanide 2 mg TID IV 02/13/25 22:00 02/14/25 05:38 2 MG Midodrine 10 mg TID@0600,1200,1800 PO 02/14/25 12:00 Potassium Bicarbonate 50 meq TID PO 02/14/25 07:45 Magnesium Sulfate/ Dextrose 100 ml @ 100 mls/hr Q1HR IV 02/14/25 10:00 02/14/25 11:59 UNV Laboratory Results Laboratory Tests 02/13/25 18:23 02/14/25 05:00 Chemistry Test 02/14/25 05:00 Calcium Level 5.5 mg/dL (8.7-10.4) *L Magnesium Level 1.2 mg/dL (1.6-2.6) L Urinalysis Test 01/31/25 16:30 02/08/25 11:45 Urine Hyaline Casts Few /lpf (0 - 2) Urine Mucus Few (None Seen) Urine Color Yellow (Yellow) Urine Clarity Cloudy (Clear) H Urine pH 5.5 (5.0-9.0) Urine Specific [place] 1.013 (1.001-1.035) Urine Protein 1+ (Negative) H Urine Ketones Negative (Negative) Urine Blood 1+ /uL (Negative) H Urine Nitrite Negative (Negative) Urine Bilirubin Negative (Negative) Urine Urobilinogen Normal mg/dL (Negative) Urine Leukocyte Esterase 3+ /uL (Negative) Urine RBC 110 /hpf (0 - 4) Urine WBC Clumps Present /hpf (None Seen) Urine Microscopic WBC 1269 /HPF (0-5) H Urine Squamous Epithelial Cells Few /hpf (<5) Urine Bacteria Few /hpf (None Seen) H Urine Yeast (Budding) Loaded /hpf (None Seen) Urine Glucose Normal mg/dL (Normal) Microbiology Microbiology Date/Time Source Procedure Growth Status 02/08/25 22:15 Urine - Hook Port Urine Culture - Final Enterococcus faecalis Complete 02/08/25 20:11 Blood Blood Culture - Final NO GROWTH AFTER 5 DAYS OF INCUBATION. Complete 02/03/25 00:50 Nose MRSA Screen - Final Complete Assessment/Plan Assessment/Plan Acute metabolic encephalopathy Septic shock due to UTI UTI Recent sepsis with a wound infection due to Pseudomonas aeruginosa MDRO Morbid obesity Bed-bound Type 2 diabetes Acute kidney injury Left hydronephrosis Horseshoe kidney Status post ureteral stent Chronic anemia Hyponatremia Atrial fibrillation Heart failure with preserved ejection fraction Plan Broad-spectrum antibiotics: Levofloxacin and gentamicin Vasopressors as needed, norepinephrine drip Cardiology consult Lasix drip per Dr. Cifuentes Full code Discussed with the daughter at the bedside Advance directives discussed for 20 minute 02/03/2025: Continue IV antibiotics Vasopressors Lasix Central line to be done by emergency room physician Cardiology consultation Dr. Cifuentes Monitor closely 02/04/2025: Replace magnesium and potassium Continue IV antibiotics Infectious Disease consultation Vasopressors as needed Lasix drip Monitor closely The rest of the management will depend on the hospital course 02/05/25: IV antibiotics: Gentamicin and levofloxacin Taper Levophed off as tolerated Lasix Replace K+ and Mg 02/06/2025: Continue the current management Tapered off the Levophed as tolerated Continue Lasix Replace potassium magnesium as needed 02/07/2025: Taper off the Levophed drip as tolerated Downgrade to telemetry once she is off the Levophed Discontinue the gentamicin Replace magnesium and potassium as needed Discharge planning once she is off the Levophed drip 02/08/2025: Levophed and dopamine drip Replace potassium and magnesium as needed Restarted antibiotics per Dr. Cifuentes Monitor closely 02/09/2025: Start Lasix 40 mg IV twice a day Continue Levophed and dopamine drip as needed IV antibiotics per Infectious Disease Dr. Adler Monitor closely 02/10/25: Continue Lasix drip Levo Dopamine IV antibiotics 02/11/2025: Continue Levophed and dopamine drips IV antibiotics Lasix drip Replace potassium and magnesium Monitor closely 02/12/25: HFpEF: Bumex drip Sepsis: Levophed and dopamine drips Sepsis: Zerbaxa Hypokalemia: Replace K+ Hyponatremia 02/13/2025: Continue Bumex drip She is off the Levophed She is on dopamine She is on Zerbaxa Florinef Dr. Jauregui is following Resume home health upon discharge 02/14/2025: Hypomagnesemia and hypokalemia: Replace Generalized edema: Continue diuresis She is off dopamine and Levophed drips Continue Zerbaxa Continue midodrine per Nephrology recommendation Plan discussed with: Patient My Orders Orders - FALGUNI CM MD Procedure Category Date Status Time Magnesium Sulfate PHA 02/14/25 Logged 1gm/100ml 10:00 Date of Service: Feb 14, 2025 Billing Provider: FALGUNI CM MD Common Visit Codes: [id number] INP/OBS CARE(HIGH) FALGUNI CM MD Feb 14, 2025 09:51
[2025-02-14] MEDS: MAGNESIUM SULFATE 1GM/100ML 100 ML IV SCH (10:11)
[2025-02-14] MEDS: MIDODRINE HCL 10 MG TAB PO SCH (12:00)
--- NOTE | 2025-02-14 13:19 | DVHPN2 ---
Progress Note - Dictate Date Seen: Feb 14, 2025 Medical Necessity Reason Pt with a Central, PICC or Fol: Yes The following are medically ne: Hook Catheter Subjective SHE BECAME UNRESPONSIVE BLOOD SUGAR 166 SHE WAS MILDLY HYPOTENSIVE HAD LEFT SIGHT ARM MOVEMENT LASTED ABOUT 10 MINUTES TOTAL/ NO CLEAR POST ICTAL PERIOD PRESENTATION CONSISTENT WITH METABOLIC SYNDROME/ INFECTION ESPECIALLY WITH HER RECENT ADMISSION FOR SEPSIS/ BACTEREMIA RECENT HX OF HYPOTENSION POSITIVE BLOOD CX STAPH PRODUCTIVE COUGH HYPOXIA SEVERE ANEMIA HX OF BLEEDING DIATHESIS NOW BEING TRANSFUSE PMH; HEMATURIA HX OF ORGANIC HD S/P TAVR HX OF AV STENOSIS HTN HFpEF DIASTOLIC DYSFUNCTION AFIB ON SOTALOL HYPERCOAGULABLE STATE HX OF DVT MORBID OBESITY 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 ANEMIA HYPONATREMIA DECUB STAGE II MULTIPLE ORGANISM PSEUDOMONAS vital signs Vital Sign Date Time Temp Pulse Resp B/P (MAP) Pulse Ox O2 Delivery O2 Flow Rate FiO2 02/14/25 11:15 58 18 100 02/14/25 11:05 Room Air 02/14/25 11:05 0 21 02/14/25 06:30 59/39 (46) 02/14/25 00:21 94.0 94.0 Total Intake and Output 02/13/25 02/13/25 02/14/25 15:00 23:00 07:00 Intake Total 800 ml 150 ml Output Total 300 ml 250 ml Balance 500 ml -100 ml medications Current Medications Medications Dose Ordered Sig/Taran Route Start Time Stop Time Status Last Admin Dose Admin Ondansetron HCl 4 mg Q4HP PRN IV 01/31/25 19:30 02/14/25 07:39 4 MG Acetaminophen 650 mg Q6HP PRN PO 01/31/25 19:30 02/14/25 11:29 650 MG Nitroglycerin 0.4 mg Q5MINP PRN SL 01/31/25 19:30 Carbidopa/Levodopa 2 tab HS PO 01/31/25 22:00 02/13/25 22:41 2 TAB Albuterol 2.5 mg Q6HPRN PRN NEB 01/31/25 19:30 02/14/25 11:05 2.5 MG Acetaminophen/ Hydrocodone Bitart 1 tab Q6HPRN PRN PO 02/01/25 03:45 02/13/25 03:40 1 TAB Digoxin 125 mcg DAILY IV 02/02/25 10:00 02/14/25 09:53 125 MCG Diagnostic Test (Pha) 1 strip ACHS 02/03/25 17:00 02/14/25 12:51 1 STRIP Insulin Human Regular ACHS SC 02/03/25 17:00 Dextrose 50 ml UD PRN IV 02/03/25 16:45 02/11/25 06:54 50 ML Levothyroxine Sodium 100 mcg QAM@0600 PO 02/08/25 06:00 02/14/25 05:38 100 MCG Patient Own Medication 160 mg DAILY IV 02/09/25 10:00 UNV Patient Own Medication 1 g Q8H IV 02/08/25 12:30 UNV Ceftolozane/ Tazobactam 3 gm/ Dextrose 100 ml @ 100 mls/hr Q8HR IV 02/08/25 14:00 02/14/25 06:18 100 MLS/HR Enteral Nutritional Formula 240 ml TIDWM PO 02/09/25 12:00 02/14/25 09:01 240 ML Betamethasone Dipropion Augmented 1 applic DAILY TOP 02/12/25 10:00 02/13/25 10:37 1 APPLIC Clotrimazole 1 applic DAILY TOP 02/12/25 10:00 02/13/25 10:33 1 APPLIC Patient Own Medication 1 DAILY TOP 02/12/25 10:00 02/13/25 10:00 1 Enoxaparin Sodium 40 mg BID SC 02/12/25 22:00 02/14/25 09:55 40 MG Budesonide 0.5 mg BID NEB 02/13/25 10:00 02/14/25 10:59 0.5 MG Iron Sucrose 110 ml @ 110 mls/hr DAILY@1200 IV 02/13/25 12:00 02/17/25 12:59 02/14/25 12:48 110 MLS/HR Bumetanide 2 mg TID IV 02/13/25 22:00 02/14/25 05:38 2 MG Midodrine 10 mg TID@0600,1200,1800 PO 02/14/25 12:00 02/14/25 12:48 10 MG Potassium Bicarbonate 50 meq TID PO 02/14/25 07:45 02/14/25 09:47 50 MEQ laboratory and microbiology Laboratory Tests 02/14/25 05:00 02/13/25 18:23 Test 02/14/25 05:00 Range/Units Serum Glucose 68 L 74-106 mg/dL Problem List SHE BECAME UNRESPONSIVE BLOOD SUGAR 166 HYPOTENSIVE HAD LEFT SIGHT ARM MOVEMENT LASTED ABOUT 10 MINUTES TOTAL/ NO CLEAR POST ICTAL PERIOD PRESENTATION CONSISTENT WITH METABOLIC SYNDROME/ INFECTION ESPECIALLY WITH HER RECENT ADMISSION FOR SEPSIS/ BACTEREMIA RECENT HX OF HYPOTENSION POSITIVE BLOOD CX STAPH PRODUCTIVE COUGH HYPOXIA SEVERE ANEMIA HX OF BLEEDING DIATHESIS NOW BEING TRANSFUSE PMH; HEMATURIA HX OF ORGANIC HD S/P TAVR HX OF AV STENOSIS HTN HFpEF DIASTOLIC DYSFUNCTION AFIB ON SOTALOL HYPERCOAGULABLE STATE HX OF DVT MORBID OBESITY 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 ANEMIA HYPONATREMIA PSEUDOMONAS INFECTION Assessment/Plan ABX PRESSORS WOUND CARE TRIPLE LUMEN INSERTION DC LASIX LABS START DOPAMINE RENAL PERFUSION STOOL OCCULT BLOOD SECONDARY TO HIGH BUN / CR RATIO WILL RESTART LASIX IN AM 3% saline resume gent and meropenem DC ABOVE ABX TREATMENT FOR YEAST AND VRE ENTEROCOCCUS titrate off levo START FLORINEF DC FLORINEF STARTED ON MIDODRINE CORRECT K Dietary Evaluation Review Comments: 1. CCHO-60 2 gNa diet w 45g proein restriction 2. Try Devin for wound healing 3. Wt management 4. F/U with nephrology and updated lab values Expected Outcomes/Goals: Less uremic syndrome, controlled DM Plan discussed with: Patient MONTRELL RANKIN MD Feb 14, 2025 13:19
[2025-02-14] MEDS: BETAMETHASONE DIPROP0.05% TOPICAL CREAM 15GM TOP SCH (13:30)
--- NOTE | 2025-02-14 14:33 | DVHPN2 ---
Progress Note Date Seen: Feb 14, 2025 Medical Necessity Reason Pt with a Central, PICC or Fol: Yes The following are medically ne: Central Line, Hook Catheter Subjective Changes from previous H/P or p: Changes Objective vital signs Vital Sign Date Time Temp Pulse Resp B/P (MAP) Pulse Ox O2 Delivery O2 Flow Rate FiO2 02/14/25 11:15 58 18 100 02/14/25 11:05 Room Air 02/14/25 11:05 0 21 02/14/25 06:30 59/39 (46) 02/14/25 00:21 94.0 94.0 Total Intake and Output 02/13/25 02/13/25 02/14/25 15:00 23:00 07:00 Intake Total 800 ml 150 ml Output Total 300 ml 250 ml Balance 500 ml -100 ml medications Current Medications Medications Dose Ordered Sig/Taran Route Start Time Stop Time Status Last Admin Dose Admin Ondansetron HCl 4 mg Q4HP PRN IV 01/31/25 19:30 02/14/25 07:39 4 MG Acetaminophen 650 mg Q6HP PRN PO 01/31/25 19:30 02/14/25 11:29 650 MG Nitroglycerin 0.4 mg Q5MINP PRN SL 01/31/25 19:30 Carbidopa/Levodopa 2 tab HS PO 01/31/25 22:00 02/13/25 22:41 2 TAB Acetaminophen/ Hydrocodone Bitart 1 tab Q6HPRN PRN PO 02/01/25 03:45 02/13/25 03:40 1 TAB Digoxin 125 mcg DAILY IV 02/02/25 10:00 02/14/25 09:53 125 MCG Diagnostic Test (Pha) 1 strip ACHS 02/03/25 17:00 02/14/25 12:51 1 STRIP Insulin Human Regular ACHS SC 02/03/25 17:00 Dextrose 50 ml UD PRN IV 02/03/25 16:45 02/11/25 06:54 50 ML Levothyroxine Sodium 100 mcg QAM@0600 PO 02/08/25 06:00 02/14/25 05:38 100 MCG Patient Own Medication 160 mg DAILY IV 02/09/25 10:00 UNV Patient Own Medication 1 g Q8H IV 02/08/25 12:30 UNV Ceftolozane/ Tazobactam 3 gm/ Dextrose 100 ml @ 100 mls/hr Q8HR IV 02/08/25 14:00 02/14/25 06:18 100 MLS/HR Enteral Nutritional Formula 240 ml TIDWM PO 02/09/25 12:00 02/14/25 09:01 240 ML Clotrimazole 1 applic DAILY TOP 02/12/25 10:00 02/13/25 10:33 1 APPLIC Patient Own Medication 1 DAILY TOP 02/12/25 10:00 02/13/25 10:00 1 Enoxaparin Sodium 40 mg BID SC 02/12/25 22:00 02/14/25 09:55 40 MG Budesonide 0.5 mg BID NEB 02/13/25 10:00 02/14/25 10:59 0.5 MG Iron Sucrose 110 ml @ 110 mls/hr DAILY@1200 IV 02/13/25 12:00 02/17/25 12:59 02/14/25 12:48 110 MLS/HR Bumetanide 2 mg TID IV 02/13/25 22:00 02/14/25 05:38 2 MG Midodrine 10 mg TID@0600,1200,1800 PO 02/14/25 12:00 02/14/25 12:48 10 MG Potassium Bicarbonate 50 meq TID PO 02/14/25 07:45 02/14/25 09:47 50 MEQ Betamethasone Dipropion Augmented 1 applic DAILY TOP 02/14/25 13:30 Potassium Chloride 100 ml @ 50 mls/hr Q2H IV 02/14/25 13:30 02/14/25 17:29 Albuterol 2.5 mg Q6HR NEB 02/14/25 18:00 UNV Examination: GENERAL:Abnormal, LUNGS:Abnormal, CVS:Abnormal laboratory and microbiology Laboratory Tests 02/14/25 05:00 02/13/25 18:23 Test 02/14/25 05:00 Range/Units Serum Glucose 68 L 74-106 mg/dL Microbiology Date/Time Source Procedure Growth Status 02/08/25 22:15 Urine - Hook Port Urine Culture - Final Enterococcus faecalis Complete 02/08/25 20:11 Blood Blood Culture - Final NO GROWTH AFTER 5 DAYS OF INCUBATION. Complete 02/03/25 00:50 Nose MRSA Screen - Final Complete Problem List/Assessment/Plan Problem List/Assessment/Plan Acute kidney injury hemodynamic mediated etiology Hyponatremia in the setting of anasarca Hypokalemia AFib acute diastolic heart failure Septic Shock [place] kidney history of ureteral stent Status post TAVR Hypertension History of DVT anemia w/ Iron depletion Bumex drip change to IVP Significant anasarca BP support change florinef to midodrine due to hypokalemia potassium daily while on diuresis Mg replacement today IV iron , check ferritin level No indication for dialysis at this time strict I/O Plan discussed with: Patient My Orders My Orders Orders - MICHELA AMEZQUITA MD Procedure Category Date Status Time Midodrine Tablet PHA 02/14/25 In Process (Proamatine Tablet) 12:00 Potassium Effervesent PHA 02/14/25 In Process Tab (Klor-Con/Ef) 07:45 Communication Order ORDERS 02/14/25 Transmitted 07:33 Basic Metabolic Panel LAB 02/15/25 Verified 04:00 Complete Blood Count LAB 02/15/25 Verified 04:00 Magnesium LAB 02/15/25 Verified 04:00 Comprehensive LAB 02/14/25 Logged Metabolic Panel 14:29 Dietary Evaluation Review Comments: 1. CCHO-60 2 gNa diet w 45g proein restriction 2. Try Devin for wound healing 3. Wt management 4. F/U with nephrology and updated lab values Expected Outcomes/Goals: Less uremic syndrome, controlled DM Total Time (mins): 40 MICHELA AMEZQUITA MD Feb 14, 2025 14:33
[2025-02-14] MEDS: POTASSIUM CHL 20MEQ/100ML 100 ML IV SCH (16:18)
[2025-02-14 17:08] LABS: Alkaline Phosphatase 106 U/L (46-116); Anion Gap 13 (5-15); BUN/Creatinine Ratio 45.3 (10.0-20.0); Calcium 8.9 mg/dL (8.7-10.4); Potassium 4.5 mmol/L (3.5-5.1)
[2025-02-14 17:10] LABS: Albumin 2.7 g/dL (3.2-4.8); Bilirubin, Total 0.2 mg/dL (0.2-1.0); Sodium 129 mmol/L (136-145)
[2025-02-14 17:11] LABS: Alanine Aminotransferase < 9 U/L (7-40); Blood Urea Nitrogen 63 mg/dL (9-23); Carbon Dioxide 19 mmol/L (20-31); Chloride 97 mmol/L (98-107); Glucose 149 mg/dL (74-106); Total Protein 4.6 g/dL (5.7-8.2)
[2025-02-14] MEDS: ALBUTEROL SULF 2.5 MG/0.5ML(0.5%) NEB SOLN NEB SCH (18:00)
[2025-02-14] MEDS: NOREPINEPHRINE 8 MG/250ML KIT 250 ML IV SCH (19:01)
[2025-02-14] MEDS: EPINEPHrine HCL 0.5 ML NEB NEB ONE (19:45)
[2025-02-14] MEDS: EPINEPHrine HCL 0.5 ML NEB ONE (19:45)
[2025-02-14] MEDS: HYDROCORTISONE SOD SUCC 100 MG/2ML INJ VIAL IV SCH (19:45)
[2025-02-14] MEDS: ALBUMIN 25% 100 ML IV ONE (20:15)
--- NOTE | 2025-02-14 20:30 | DVH ---
CHEST RADIOGRAPH Indication: central line placement Technique: Single frontal view of the chest was obtained COMPARISON: XY CHEST XRAY 1 VIEW on DOS: 02/12/25, XY CHEST PORTABLE on DOS: 02/08/25, XY CHEST PORTABL E on DOS: 01/31/25, XY CHEST XRAY 1 VIEW on DOS: 01/16/25, XY CHEST PORTABLE on DOS: 01/04/25 FINDINGS: Left side port cath unchanged. A central line is seen coiled within the high right axilla, superimposed over the right upper lung. R epositioning required. Grossly stable cardiomegaly, pulmonary venous congestion, and bilateral effusions. IMPRESSION: Central line appears coiled within the high right axilla / upper right hemithorax and requires reposi tioning.
--- NOTE | 2025-02-14 21:14 | DVHPN2 ---
Consult Progress Note Objective vital signs Vital Sign Date Time Temp Pulse Resp B/P (MAP) Pulse Ox O2 Delivery O2 Flow Rate FiO2 02/14/25 20:11 97.5 84 88/27 (47) 99 207.5 02/14/25 20:01 16 02/14/25 19:46 Room Air 0.0 02/14/25 19:46 21 Total Intake and Output 02/13/25 02/13/25 02/14/25 15:00 23:00 07:00 Intake Total 800 ml 150 ml Output Total 300 ml 250 ml Balance 500 ml -100 ml medications Current Medications Medications Dose Ordered Sig/Taran Route Start Time Stop Time Status Last Admin Dose Admin Ondansetron HCl 4 mg Q4HP PRN IV 01/31/25 19:30 02/14/25 07:39 4 MG Acetaminophen 650 mg Q6HP PRN PO 01/31/25 19:30 02/14/25 11:29 650 MG Nitroglycerin 0.4 mg Q5MINP PRN SL 01/31/25 19:30 Carbidopa/Levodopa 2 tab HS PO 01/31/25 22:00 02/13/25 22:41 2 TAB Acetaminophen/ Hydrocodone Bitart 1 tab Q6HPRN PRN PO 02/01/25 03:45 02/13/25 03:40 1 TAB Digoxin 125 mcg DAILY IV 02/02/25 10:00 02/14/25 09:53 125 MCG Diagnostic Test (Pha) 1 strip ACHS 02/03/25 17:00 02/14/25 17:40 1 STRIP Insulin Human Regular ACHS SC 02/03/25 17:00 Dextrose 50 ml UD PRN IV 02/03/25 16:45 02/11/25 06:54 50 ML Levothyroxine Sodium 100 mcg QAM@0600 PO 02/08/25 06:00 02/14/25 05:38 100 MCG Patient Own Medication 160 mg DAILY IV 02/09/25 10:00 UNV Patient Own Medication 1 g Q8H IV 02/08/25 12:30 UNV Ceftolozane/ Tazobactam 3 gm/ Dextrose 100 ml @ 100 mls/hr Q8HR IV 02/08/25 14:00 02/14/25 16:19 100 MLS/HR Enteral Nutritional Formula 240 ml TIDWM PO 02/09/25 12:00 02/14/25 09:01 240 ML Clotrimazole 1 applic DAILY TOP 02/12/25 10:00 02/13/25 10:33 1 APPLIC Patient Own Medication 1 DAILY TOP 02/12/25 10:00 02/13/25 10:00 1 Enoxaparin Sodium 40 mg BID SC 02/12/25 22:00 02/14/25 09:55 40 MG Budesonide 0.5 mg BID NEB 02/13/25 10:00 02/14/25 10:59 0.5 MG Iron Sucrose 110 ml @ 110 mls/hr DAILY@1200 IV 02/13/25 12:00 02/17/25 12:59 02/14/25 12:48 110 MLS/HR Bumetanide 2 mg TID IV 02/13/25 22:00 02/14/25 05:38 2 MG Midodrine 10 mg TID@0600,1200,1800 PO 02/14/25 12:00 Potassium Bicarbonate 50 meq TID PO 02/14/25 07:45 02/14/25 09:47 50 MEQ Betamethasone Dipropion Augmented 1 applic DAILY TOP 02/14/25 13:30 Albuterol 2.5 mg Q6HR NEB 02/14/25 18:00 Norepinephrine Bitartrate 250 ml @ 3.75 mls/hr Q24H IV 02/14/25 19:00 02/14/25 19:01 3.75 MLS/HR Hydrocortisone Sodium Succinate 50 mg Q6HR IV 02/14/25 19:45 laboratory and microbiology Laboratory Tests 02/14/25 15:46 02/13/25 18:23 Test 02/14/25 15:46 Range/Units Serum Glucose 149 H 74-106 mg/dL Dietary Evaluation Review Comments: 1. CCHO-60 2 gNa diet w 45g proein restriction 2. Try Devin for wound healing 3. Wt management 4. F/U with nephrology and updated lab values Expected Outcomes/Goals: Less uremic syndrome, controlled DM MIRIAM SCOTT MD Feb 14, 2025 21:14
--- NOTE | 2025-02-14 22:16 | DVHPN2 ---
[facility] DOS: 02/14/25 Patient seen and examined at bedside. Breathing on room air. Overnight events reviewed. HPI: An 79-year-old woman with PMHx of CHF, chronic kidney disease, diabetes mellitus, hypertension, AFib, thyroid disease and anemia who presented to ED on 02/01/25 for evaluation of altered mental status. Patient was recently discharged after being treated for sepsis. Patient was acting lethargic and altered on day prior to presentation, therefore family brought her in for further evaluation. Patient was lethargic, oriented times two on day of presentation. No unilateral weakness noted or slurred speech. No cardiac or respiratory symptoms. Patient was admitted for further care. Pulmonary consultation is requested for evaluation and management d/t pleural effusions. Past Medical History CHF, chronic kidney disease, diabetes mellitus, hypertension, thyroid, anemia, AFib Past Surgical History Tonsillectomy Family History Noncontributory Social History No smoking, alcohol or illicit drug use. Medications: Reviewed. Allergies: Penicillins (Unverified Allergy, Severe, 03/16/15) Sulfa Antibiotics (Unverified Allergy, Severe, 03/16/15) Morphine (Verified Allergy, Intermediate, ALTERED, 01/31/18) Ceftriaxone (Verified Allergy, Unknown, 01/31/18) Reviewed: Care Plan, H&P, Labs, Medications, Previous Orders, Radiology Changes from previous H/P or p: No Changes Objective Vitals Vital Signs Date Time Temp Pulse Resp B/P (MAP) Pulse Ox O2 Delivery O2 Flow Rate FiO2 02/14/25 20:11 97.5 84 88/27 (47) 99 207.5 02/14/25 20:01 16 02/14/25 19:46 Room Air 0.0 02/14/25 19:46 21 Intake/Output Intake and Output 02/14/25 07:00 Intake Total 950 ml Output Total 550 ml Balance 400 ml Intake Oral 950 ml Output Urine Total 550 ml # Bowel Movements 4 General Appearance: Alert, Other (Disoriented) HEENT: Atraumatic, PERRLA, EOMI Lungs: Other (Decreased air movement bilaterally. Wheezing. No rhonchi) Cardiovascular: Regular rate, Normal S1, Normal S2 Abdomen: Normal bowel sounds, Soft, No tenderness Musculoskeletal: Normal sensory function, Normal motor function Extremities: Other (2+ edema bilaterally in the lower extremities) Neuro: Strength at 5/5 X4 ext, Cranial nerves 3-12 NL Skin: Significant Lesion, Dry, Intact, Warm Psych/Mental Status: Mental status NL, Mood NL Medications Current Medications Medications Dose Ordered Sig/Taran Route Start Time Stop Time Status Last Admin Dose Admin Ondansetron HCl 4 mg Q4HP PRN IV 01/31/25 19:30 02/14/25 07:39 4 MG Acetaminophen 650 mg Q6HP PRN PO 01/31/25 19:30 02/14/25 11:29 650 MG Nitroglycerin 0.4 mg Q5MINP PRN SL 01/31/25 19:30 Carbidopa/Levodopa 2 tab HS PO 01/31/25 22:00 02/13/25 22:41 2 TAB Acetaminophen/ Hydrocodone Bitart 1 tab Q6HPRN PRN PO 02/01/25 03:45 02/13/25 03:40 1 TAB Digoxin 125 mcg DAILY IV 02/02/25 10:00 02/14/25 09:53 125 MCG Diagnostic Test (Pha) 1 strip ACHS 02/03/25 17:00 02/14/25 17:40 1 STRIP Insulin Human Regular ACHS SC 02/03/25 17:00 Dextrose 50 ml UD PRN IV 02/03/25 16:45 02/11/25 06:54 50 ML Levothyroxine Sodium 100 mcg QAM@0600 PO 02/08/25 06:00 02/14/25 05:38 100 MCG Patient Own Medication 160 mg DAILY IV 02/09/25 10:00 UNV Patient Own Medication 1 g Q8H IV 02/08/25 12:30 UNV Ceftolozane/ Tazobactam 3 gm/ Dextrose 100 ml @ 100 mls/hr Q8HR IV 02/08/25 14:00 02/14/25 16:19 100 MLS/HR Enteral Nutritional Formula 240 ml TIDWM PO 02/09/25 12:00 02/14/25 09:01 240 ML Clotrimazole 1 applic DAILY TOP 02/12/25 10:00 02/13/25 10:33 1 APPLIC Patient Own Medication 1 DAILY TOP 02/12/25 10:00 02/13/25 10:00 1 Enoxaparin Sodium 40 mg BID SC 02/12/25 22:00 02/14/25 09:55 40 MG Budesonide 0.5 mg BID NEB 02/13/25 10:00 02/14/25 10:59 0.5 MG Iron Sucrose 110 ml @ 110 mls/hr DAILY@1200 IV 02/13/25 12:00 02/17/25 12:59 02/14/25 12:48 110 MLS/HR Bumetanide 2 mg TID IV 02/13/25 22:00 02/14/25 05:38 2 MG Midodrine 10 mg TID@0600,1200,1800 PO 02/14/25 12:00 Potassium Bicarbonate 50 meq TID PO 02/14/25 07:45 02/14/25 09:47 50 MEQ Betamethasone Dipropion Augmented 1 applic DAILY TOP 02/14/25 13:30 Albuterol 2.5 mg Q6HR NEB 02/14/25 18:00 Norepinephrine Bitartrate 250 ml @ 3.75 mls/hr Q24H IV 02/14/25 19:00 02/14/25 19:01 3.75 MLS/HR Hydrocortisone Sodium Succinate 50 mg Q6HR IV 02/14/25 19:45 02/14/25 19:45 50 MG Laboratory Results Laboratory Tests 02/13/25 18:23 02/14/25 15:46 Chemistry Test 02/14/25 05:00 02/14/25 15:46 Calcium Level 5.5 mg/dL (8.7-10.4) *L 8.9 mg/dL (8.7-10.4) Magnesium Level 1.2 mg/dL (1.6-2.6) L Albumin 2.7 g/dL (3.2-4.8) L Total Protein 4.6 g/dL (5.7-8.2) L LFT Test 02/14/25 15:46 Alanine Aminotransferase (ALT) < 9 U/L (7-40) Alkaline Phosphatase 106 U/L (46-116) Aspartate Amino Transferase (AST) 16 U/L (13-40) Total Bilirubin 0.2 mg/dL (0.2-1.0) Urinalysis Test 01/31/25 16:30 02/08/25 11:45 Urine Hyaline Casts Few /lpf (0 - 2) Urine Mucus Few (None Seen) Urine Color Yellow (Yellow) Urine Clarity Cloudy (Clear) H Urine pH 5.5 (5.0-9.0) Urine Specific [place] 1.013 (1.001-1.035) Urine Protein 1+ (Negative) H Urine Ketones Negative (Negative) Urine Blood 1+ /uL (Negative) H Urine Nitrite Negative (Negative) Urine Bilirubin Negative (Negative) Urine Urobilinogen Normal mg/dL (Negative) Urine Leukocyte Esterase 3+ /uL (Negative) Urine RBC 110 /hpf (0 - 4) Urine WBC Clumps Present /hpf (None Seen) Urine Microscopic WBC 1269 /HPF (0-5) H Urine Squamous Epithelial Cells Few /hpf (<5) Urine Bacteria Few /hpf (None Seen) H Urine Yeast (Budding) Loaded /hpf (None Seen) Urine Glucose Normal mg/dL (Normal) Microbiology Microbiology Date/Time Source Procedure Growth Status 02/08/25 22:15 Urine - Hook Port Urine Culture - Final Enterococcus faecalis Complete 02/08/25 20:11 Blood Blood Culture - Final NO GROWTH AFTER 5 DAYS OF INCUBATION. Complete 02/03/25 00:50 Nose MRSA Screen - Final Complete Assessment/Plan Assessment/Plan Impression: Acute metabolic encephalopathy Septic shock due to UTI Morbid obesity, BMI 42.3 Snoring, likely ARPAN Urinary tract infection Congestive heart failure (HFpEF) Hyponatremia Pleural effusions Atelectasis Events: Breathing on room air Supplemental oxygen PRN Patient underwent STAT central line placement for administration of pressors. See separate procedure note for details. Follow up post procedure chest x-ray Continue bronchodilators Continue Pulmicort Upper airway wheezing treated with STAT racemic epinephrine + Pulmicort BID - wheezing resolved. Continue antibiotics Start hydrocortisone 50 mg IVP q.6 hours Incentive spirometry Pressors for hemodynamic support Levophed 12 mcg/min Titrate to keep mean arterial pressure greater than 65 mmHg. On Florinef. Monitor hemoglobin Continue IV iron supplementation Continue Bumex drip for diuresis Monitor renal function Monitor electrolytes. Supplement as necessary. Nephrology recommendations appreciated. Labs and imaging reviewed. Rest of plan as noted below. Plan: Supplemental oxygen PRN Titrate to keep O2 sats above 92%. Bronchodilators PRN. Continue antibiotics Incentive spirometry Pressors as necessary for hemodynamic support Titrate to keep mean arterial pressure greater than 65 mmHg. Follow up Cardiology recs Diurese to euvolemia Monitor renal function. Monitor electrolytes. Supplement as necessary. Monitor sodium Monitor ins and outs. DVT prophylaxis - Lovenox. Prognosis: Poor given patient's multiple co-morbidities. Condition: Critical Rest of plan per hospitalist and other consultants. A total of 35 minutes of critical care time was spent reviewing the patient record, examining the patient, making a diagnostic and therapeutic plan, discussing this plan with the medical personnel, following up on diagnostic studies and following the patient for clinical stability excluding any and all procedures. At least 50% of this time was spent in direct, [id number] contact. Thank you, Dr. Castaneda, for allowing me to participate in this patient's care. Further recommendations will depend on the patient's clinical course. Please do not hesitate to contact me if you have any questions or concerns. This medical document was created using an electronic medical record system with [employer] dictation system. Although these documentations are being carefully reviewed, there may still be some phonetic and typographical changes. The errors are purely typographical, due to imperfection on the software program, and do not reflect any compromise in the patient's medical care. Plan discussed with: Other (FABIO Castillo) My Orders Orders - BENITO WILLARD MD Procedure Category Date Status Time Hydrocortisone PHA 02/14/25 In Process Succinate Inj 19:45 Date of Service: Feb 14, 2025 Billing Provider: BENITO WILLARD MD Common Visit Codes: [id number] INP/OBS CARE(HIGH) BENITO WILLARD MD Feb 14, 2025 22:16
--- NOTE | 2025-02-14 22:17 | DVHNC2 ---
Procedure - Left Femoral Central Line Procedure Note INDICATION: Administration of vaso-active medictions, CVP monitoring, Blood draws PROCEDURE VIOLIN TUTOR: DR Shasha Browne Ultrasound Used: Y CONSENT: Consent was obtained from patient's health care proxy prior to the procedure. Indications, risks, and benefits were explained at length. Time out time: Risks and benefits of the procedure and sedation options and risks were discussed with the patient/patient's HCP. All questions were answered and informed consent was obtained. Patient identification and proposed procedure were verified prior to the procedure by the physician, and the nurse in the patient's room. PROCEDURE SUMMARY: A time out was performed. My hands were washed immediately prior to the procedure. I wore a surgical cap, mask with protective eyewear, sterile gown and sterile gloves throughout the procedure. The LEFT inguinal region was prepped using chlorhexidine scrub and draped in sterile fashion using a full drape and sterile probe cover employed. The femoral pulse was identified. Anesthesia was achieved using 1% lidocaine. Palpating the femoral pulse throughout the procedure and US guidance, the introducer needle was inserted medial to the femoral artery, inferior to the inguinal crease and into the femoral vein. Venous blood was withdrawn. The syringe was removed and a guidewire was advanced into the introducer needle. A small incision was made at the skin surface with a scalpel and the introducer needle was exchanged for a dilator over the guidewire. After appropriate dilation was obtained, the dilator was exchanged over the wire for a left femoral central venous catheter. The wire was removed and the catheter was sutured in place at 20 cm, 2 sutures used. A sterile sorbaview shield was placed over the catheter at the insertion site. The patient tolerated the procedure without any hemodynamic compromise. At time of procedure completion, all ports aspirated and flushed properly. Estimated blood loss is less than 5 mL. CPT 80445 CPT 19785 [id number] ultrasound add-on BENITO BROWNE MD Feb 14, 2025 22:17
[2025-02-15] VITALS (94 sets, daily range): BP systolic 94–152; BP diastolic 31–93; PULSE 65–110; RESP 7–27; TEMP 96.4–99.1; O2SAT 94–100
[2025-02-15 05:39] LABS: Hemoglobin 8.4 g/dL (12.2-16.2)
[2025-02-15 05:42] LABS: Hematocrit 25.0 % (36.0-46.0); Mean Corpuscular Hemoglobin 27.4 pg (28.0-32.0); Mean Corpuscular Volume 81.7 fL (80.0-100.0)
[2025-02-15 05:49] LABS: Anion Gap 14 (5-15); Potassium 4.7 mmol/L (3.5-5.1)
[2025-02-15 05:50] LABS: Calcium 9.4 mg/dL (8.7-10.4); Carbon Dioxide 19 mmol/L (20-31); Chloride 97 mmol/L (98-107); Sodium 130 mmol/L (136-145)
[2025-02-15 05:55] LABS: BUN/Creatinine Ratio 46.3 (10.0-20.0); Magnesium 2.5 mg/dL (1.6-2.6)
[2025-02-15 05:56] LABS: Blood Urea Nitrogen 69 mg/dL (9-23); Glucose 122 mg/dL (74-106)
[2025-02-15 06:53] LABS: Total Cells Counted 100.0 (100)
--- NOTE | 2025-02-15 10:57 | DVHPN2 ---
Progress Note - Dictate Date Seen: Feb 15, 2025 Medical Necessity Reason Pt with a Central, PICC or Fol: Yes The following are medically ne: Central Line, Hook Catheter Subjective SHE BECAME UNRESPONSIVE BLOOD SUGAR 166 SHE WAS MILDLY HYPOTENSIVE HAD LEFT SIGHT ARM MOVEMENT LASTED ABOUT 10 MINUTES TOTAL/ NO CLEAR POST ICTAL PERIOD PRESENTATION CONSISTENT WITH METABOLIC SYNDROME/ INFECTION ESPECIALLY WITH HER RECENT ADMISSION FOR SEPSIS/ BACTEREMIA RECENT HX OF HYPOTENSION POSITIVE BLOOD CX STAPH PRODUCTIVE COUGH HYPOXIA SEVERE ANEMIA HX OF BLEEDING DIATHESIS NOW BEING TRANSFUSE PMH; HEMATURIA HX OF ORGANIC HD S/P TAVR HX OF AV STENOSIS HTN HFpEF DIASTOLIC DYSFUNCTION AFIB ON SOTALOL HYPERCOAGULABLE STATE HX OF DVT MORBID OBESITY 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 ANEMIA HYPONATREMIA DECUB STAGE II MULTIPLE ORGANISM PSEUDOMONAS vital signs Vital Sign Date Time Temp Pulse Resp B/P (MAP) Pulse Ox O2 Delivery O2 Flow Rate FiO2 02/15/25 09:43 149/60 02/15/25 07:10 97 Room Air* 0 21 02/15/25 07:10 99 11 02/15/25 05:00 97.5 207.5 Total Intake and Output 02/14/25 02/14/25 02/15/25 15:00 23:00 07:00 Intake Total 210 ml 1134.50 ml 306.25 ml Output Total 175 ml 150 ml Balance 210 ml 959.50 ml 156.25 ml medications Current Medications Medications Dose Ordered Sig/Taran Route Start Time Stop Time Status Last Admin Dose Admin Ondansetron HCl 4 mg Q4HP PRN IV 01/31/25 19:30 02/14/25 07:39 4 MG Acetaminophen 650 mg Q6HP PRN PO 01/31/25 19:30 02/14/25 11:29 650 MG Nitroglycerin 0.4 mg Q5MINP PRN SL 01/31/25 19:30 Carbidopa/Levodopa 2 tab HS PO 01/31/25 22:00 02/13/25 22:41 2 TAB Acetaminophen/ Hydrocodone Bitart 1 tab Q6HPRN PRN PO 02/01/25 03:45 02/13/25 03:40 1 TAB Digoxin 125 mcg DAILY IV 02/02/25 10:00 02/14/25 09:53 125 MCG Diagnostic Test (Pha) 1 strip ACHS 02/03/25 17:00 02/15/25 06:37 1 STRIP Insulin Human Regular ACHS SC 02/03/25 17:00 Dextrose 50 ml UD PRN IV 02/03/25 16:45 02/11/25 06:54 50 ML Levothyroxine Sodium 100 mcg QAM@0600 PO 02/08/25 06:00 02/14/25 05:38 100 MCG Patient Own Medication 160 mg DAILY IV 02/09/25 10:00 UNV Patient Own Medication 1 g Q8H IV 02/08/25 12:30 UNV Ceftolozane/ Tazobactam 3 gm/ Dextrose 100 ml @ 100 mls/hr Q8HR IV 02/08/25 14:00 02/15/25 06:00 100 MLS/HR Enteral Nutritional Formula 240 ml TIDWM PO 02/09/25 12:00 02/14/25 09:01 240 ML Clotrimazole 1 applic DAILY TOP 02/12/25 10:00 02/13/25 10:33 1 APPLIC Patient Own Medication 1 DAILY TOP 02/12/25 10:00 02/13/25 10:00 1 Enoxaparin Sodium 40 mg BID SC 02/12/25 22:00 02/14/25 22:32 40 MG Budesonide 0.5 mg BID NEB 02/13/25 10:00 02/15/25 07:10 0.5 MG Iron Sucrose 110 ml @ 110 mls/hr DAILY@1200 IV 02/13/25 12:00 02/17/25 12:59 02/14/25 12:48 110 MLS/HR Bumetanide 2 mg TID IV 02/13/25 22:00 02/15/25 06:26 2 MG Midodrine 10 mg TID@0600,1200,1800 PO 02/14/25 12:00 Betamethasone Dipropion Augmented 1 applic DAILY TOP 02/14/25 13:30 Albuterol 2.5 mg Q6HR NEB 02/14/25 18:00 02/15/25 07:10 2.5 MG Norepinephrine Bitartrate 250 ml @ 3.75 mls/hr Q24H IV 02/14/25 19:00 02/14/25 19:01 3.75 MLS/HR Hydrocortisone Sodium Succinate 50 mg Q6HR IV 02/14/25 19:45 02/15/25 06:26 50 MG laboratory and microbiology Laboratory Tests 02/15/25 05:00 Test 02/15/25 05:00 Range/Units Serum Glucose 122 H 74-106 mg/dL Problem List SHE BECAME UNRESPONSIVE BLOOD SUGAR 166 HYPOTENSIVE HAD LEFT SIGHT ARM MOVEMENT LASTED ABOUT 10 MINUTES TOTAL/ NO CLEAR POST ICTAL PERIOD PRESENTATION CONSISTENT WITH METABOLIC SYNDROME/ INFECTION ESPECIALLY WITH HER RECENT ADMISSION FOR SEPSIS/ BACTEREMIA RECENT HX OF HYPOTENSION POSITIVE BLOOD CX STAPH PRODUCTIVE COUGH HYPOXIA SEVERE ANEMIA HX OF BLEEDING DIATHESIS NOW BEING TRANSFUSE PMH; HEMATURIA HX OF ORGANIC HD S/P TAVR HX OF AV STENOSIS HTN HFpEF DIASTOLIC DYSFUNCTION AFIB ON SOTALOL HYPERCOAGULABLE STATE HX OF DVT MORBID OBESITY 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 ANEMIA HYPONATREMIA PSEUDOMONAS INFECTION Assessment/Plan ABX PRESSORS WOUND CARE TRIPLE LUMEN INSERTION DC LASIX LABS START DOPAMINE RENAL PERFUSION STOOL OCCULT BLOOD SECONDARY TO HIGH BUN / CR RATIO WILL RESTART LASIX IN AM 3% saline resume gent and meropenem DC ABOVE ABX TREATMENT FOR YEAST AND VRE ENTEROCOCCUS titrate off levo START FLORINEF DC FLORINEF STARTED ON MIDODRINE CORRECT K THE MOMENT FLORINEF WAS DISCONTINUED BP DROPPED NOW WBC GOING UP AGAIN BECAUSE OF CHANGE IN ABX Dietary Evaluation Review Comments: 1. CCHO-60 2 gNa diet w 45g proein restriction 2. Try Devin for wound healing 3. Wt management 4. F/U with nephrology and updated lab values Expected Outcomes/Goals: Less uremic syndrome, controlled DM Plan discussed with: Patient Critical Care Time(min): 35 MONTRELL RANKIN MD Feb 15, 2025 10:57
[2025-02-15 11:21] LABS: Base Excess -5.1 mmol/L (-2.0-3.0)
--- NOTE | 2025-02-15 11:51 | DVHNC2 ---
Procedure - Procedure Summary: Central Line Placement Under Ultrasound Guidance Note Date: 02/14/2025 PROCEDURE: Subclavian Vein Central line catheter, U/S guided. INDICATION: Administration of medications, Frequent blood draws, poor venous access PROCEDURE PLASTIC EYE TECHNICIAN: Dr. Benito Browne CONSENT: Consent was obtained from the patient prior to the procedure. Indications, risks, and benefits were explained at length. PROCEDURE SUMMARY: A time-out was performed. The patient's neck region was prepped and draped in sterile fashion using chlorhexidine scrub. Anesthesia was achieved with 1% lidocaine. The Right subclavian vein was accessed under ultrasound guidance using a finder needle and sheath. Venous blood was withdrawn and the sheath was advanced into the vein and the needle was withdrawn. A guidewire was advanced through the sheath. U/S images of needle within the Right Subclavian Vein lumen were permanently documented in chart. A small incision was made with a 10 blade sca lpel and the sheath was exchanged for a dilator over the guidewire until appropriate dilation was obtained. The dilator was removed and an 7.5 Swedish central venous triple-lumen catheter was advanced over the guidewire and secured into place with 2 sutures at 20 cm. At time of procedure completion, all ports aspirated and flushed properly. Post-procedure x-ray interpreted at bedside and demonstrated catheter not in place within the SVC in appropriate position. Patient underwent removal of Right Subclavian central line catheter and placement of left femoral central line. See separate procedure note for details. COMPLICATIONS: NONE ESTIMATED BLOOD LOSS: less than 5 ml CPT: 71451 (Central line insertion) CPT 82854 (U/S Add On) CPT 57812 (CXR Interpretation) BENITO BROWNE MD Feb 15, 2025 11:51
--- NOTE | 2025-02-15 14:01 | DVHPN2 ---
Subjective She is lethargic today She is on Levophed drip White count went up to 29.3 She is still has significant generalized edema Reviewed: Care Plan, H&P, Labs, Medications, Previous Orders, Radiology Changes from previous H/P or p: Changes Objective Vitals Vital Signs Date Time Temp Pulse Resp B/P (MAP) Pulse Ox O2 Delivery O2 Flow Rate FiO2 02/15/25 13:54 106/43 02/15/25 12:20 72 13 100 02/15/25 12:12 Room Air* 0 21 02/15/25 05:00 97.5 207.5 Intake/Output Intake and Output 02/15/25 07:00 Intake Total 1650.75 ml Output Total 325 ml Balance 1325.75 ml Intake Oral 760 ml IV Total 890.75 ml Output Urine Total 325 ml # Bowel Movements 3 General Appearance: Alert, Other (Disoriented) HEENT: Atraumatic, PERRLA, EOMI Lungs: Other (Decreased air movement bilaterally. Wheezing. No rhonchi) Cardiovascular: Regular rate, Normal S1, Normal S2 Abdomen: Normal bowel sounds, Soft, No tenderness Musculoskeletal: Normal sensory function, Normal motor function Extremities: Other (2+ edema bilaterally in the lower extremities) Neuro: Strength at 5/5 X4 ext, Cranial nerves 3-12 NL Skin: Significant Lesion, Dry, Intact, Warm Psych/Mental Status: Mental status NL, Mood NL Medications Current Medications Medications Dose Ordered Sig/Taran Route Start Time Stop Time Status Last Admin Dose Admin Ondansetron HCl 4 mg Q4HP PRN IV 01/31/25 19:30 02/14/25 07:39 4 MG Acetaminophen 650 mg Q6HP PRN PO 01/31/25 19:30 02/14/25 11:29 650 MG Nitroglycerin 0.4 mg Q5MINP PRN SL 01/31/25 19:30 Carbidopa/Levodopa 2 tab HS PO 01/31/25 22:00 02/13/25 22:41 2 TAB Acetaminophen/ Hydrocodone Bitart 1 tab Q6HPRN PRN PO 02/01/25 03:45 02/13/25 03:40 1 TAB Digoxin 125 mcg DAILY IV 02/02/25 10:00 02/15/25 11:01 125 MCG Diagnostic Test (Pha) 1 strip ACHS 02/03/25 17:00 02/15/25 11:49 1 STRIP Insulin Human Regular ACHS SC 02/03/25 17:00 Dextrose 50 ml UD PRN IV 02/03/25 16:45 02/11/25 06:54 50 ML Levothyroxine Sodium 100 mcg QAM@0600 PO 02/08/25 06:00 02/14/25 05:38 100 MCG Patient Own Medication 160 mg DAILY IV 02/09/25 10:00 UNV Patient Own Medication 1 g Q8H IV 02/08/25 12:30 UNV Ceftolozane/ Tazobactam 3 gm/ Dextrose 100 ml @ 100 mls/hr Q8HR IV 02/08/25 14:00 02/15/25 06:00 100 MLS/HR Enteral Nutritional Formula 240 ml TIDWM PO 02/09/25 12:00 02/14/25 09:01 240 ML Clotrimazole 1 applic DAILY TOP 02/12/25 10:00 02/15/25 11:23 1 APPLIC Patient Own Medication 1 DAILY TOP 02/12/25 10:00 02/15/25 10:00 1 Enoxaparin Sodium 40 mg BID SC 02/12/25 22:00 02/15/25 11:00 40 MG Budesonide 0.5 mg BID NEB 02/13/25 10:00 02/15/25 07:10 0.5 MG Iron Sucrose 110 ml @ 110 mls/hr DAILY@1200 IV 02/13/25 12:00 02/17/25 12:59 02/15/25 13:49 110 MLS/HR Bumetanide 2 mg TID IV 02/13/25 22:00 02/15/25 13:54 2 MG Midodrine 10 mg TID@0600,1200,1800 PO 02/14/25 12:00 Betamethasone Dipropion Augmented 1 applic DAILY TOP 02/14/25 13:30 02/15/25 11:23 1 APPLIC Albuterol 2.5 mg Q6HR NEB 02/14/25 18:00 02/15/25 12:12 2.5 MG Norepinephrine Bitartrate 250 ml @ 3.75 mls/hr Q24H IV 02/14/25 19:00 02/14/25 19:01 3.75 MLS/HR Hydrocortisone Sodium Succinate 50 mg Q6HR IV 02/14/25 19:45 02/15/25 13:49 50 MG Laboratory Results Laboratory Tests 02/15/25 05:00 Chemistry Test 02/14/25 15:46 02/15/25 05:00 Albumin 2.7 g/dL (3.2-4.8) L Calcium Level 8.9 mg/dL (8.7-10.4) 9.4 mg/dL (8.7-10.4) Total Protein 4.6 g/dL (5.7-8.2) L Magnesium Level 2.5 mg/dL (1.6-2.6) # LFT Test 02/14/25 15:46 Alanine Aminotransferase (ALT) < 9 U/L (7-40) Alkaline Phosphatase 106 U/L (46-116) Aspartate Amino Transferase (AST) 16 U/L (13-40) Total Bilirubin 0.2 mg/dL (0.2-1.0) Urinalysis Test 01/31/25 16:30 02/08/25 11:45 Urine Hyaline Casts Few /lpf (0 - 2) Urine Mucus Few (None Seen) Urine Color Yellow (Yellow) Urine Clarity Cloudy (Clear) H Urine pH 5.5 (5.0-9.0) Urine Specific [place] 1.013 (1.001-1.035) Urine Protein 1+ (Negative) H Urine Ketones Negative (Negative) Urine Blood 1+ /uL (Negative) H Urine Nitrite Negative (Negative) Urine Bilirubin Negative (Negative) Urine Urobilinogen Normal mg/dL (Negative) Urine Leukocyte Esterase 3+ /uL (Negative) Urine RBC 110 /hpf (0 - 4) Urine WBC Clumps Present /hpf (None Seen) Urine Microscopic WBC 1269 /HPF (0-5) H Urine Squamous Epithelial Cells Few /hpf (<5) Urine Bacteria Few /hpf (None Seen) H Urine Yeast (Budding) Loaded /hpf (None Seen) Urine Glucose Normal mg/dL (Normal) Blood Gas Results Test 02/15/25 11:13 Arterial Blood pH 7.473 (7.350-7.450) FiO2 % 21.0 Microbiology Microbiology Date/Time Source Procedure Growth Status 02/08/25 22:15 Urine - Hook Port Urine Culture - Final Enterococcus faecalis Complete 02/08/25 20:11 Blood Blood Culture - Final NO GROWTH AFTER 5 DAYS OF INCUBATION. Complete 02/03/25 00:50 Nose MRSA Screen - Final Complete Assessment/Plan Assessment/Plan Acute metabolic encephalopathy Septic shock due to UTI UTI Recent sepsis with a wound infection due to Pseudomonas aeruginosa MDRO Morbid obesity Bed-bound Type 2 diabetes Acute kidney injury Left hydronephrosis Horseshoe kidney Status post ureteral stent Chronic anemia Hyponatremia Atrial fibrillation Heart failure with preserved ejection fraction Plan Broad-spectrum antibiotics: Levofloxacin and gentamicin Vasopressors as needed, norepinephrine drip Cardiology consult Lasix drip per Dr. Cifuentes Full code Discussed with the daughter at the bedside Advance directives discussed for 20 minute 02/03/2025: Continue IV antibiotics Vasopressors Lasix Central line to be done by emergency room physician Cardiology consultation Dr. Cifuentes Monitor closely 02/04/2025: Replace magnesium and potassium Continue IV antibiotics Infectious Disease consultation Vasopressors as needed Lasix drip Monitor closely The rest of the management will depend on the hospital course 02/05/25: IV antibiotics: Gentamicin and levofloxacin Taper Levophed off as tolerated Lasix Replace K+ and Mg 02/06/2025: Continue the current management Tapered off the Levophed as tolerated Continue Lasix Replace potassium magnesium as needed 02/07/2025: Taper off the Levophed drip as tolerated Downgrade to telemetry once she is off the Levophed Discontinue the gentamicin Replace magnesium and potassium as needed Discharge planning once she is off the Levophed drip 02/08/2025: Levophed and dopamine drip Replace potassium and magnesium as needed Restarted antibiotics per Dr. Cifuentes Monitor closely 02/09/2025: Start Lasix 40 mg IV twice a day Continue Levophed and dopamine drip as needed IV antibiotics per Infectious Disease Dr. Adler Monitor closely 02/10/25: Continue Lasix drip Levo Dopamine IV antibiotics 02/11/2025: Continue Levophed and dopamine drips IV antibiotics Lasix drip Replace potassium and magnesium Monitor closely 02/12/25: HFpEF: Bumex drip Sepsis: Levophed and dopamine drips Sepsis: Zerbaxa Hypokalemia: Replace K+ Hyponatremia 02/13/2025: Continue Bumex drip She is off the Levophed She is on dopamine She is on Zerbaxa Marily Jauregui is following Resume home health upon discharge 02/14/2025: Hypomagnesemia and hypokalemia: Replace Generalized edema: Continue diuresis She is off dopamine and Levophed drips Continue Zerbaxa Continue midodrine per Nephrology recommendation 02/15/2025: Leukocytosis: Repeat the CBC to verify the leukocytosis which is most likely due to steroids Lethargy: Get CT scan of the head Generalized edema: Treated with Bumex 2 mg IV 3 times a day managed by Dr. Cifuentes Diastolic heart failure Sepsis Discussed with the daughter and son at the bedside, Full code Plan discussed with: Patient, Daughter, Son My Orders Orders - FALGUNI CM MD Procedure Category Date Status Time Albuterol Medneb PHA 02/14/25 In Process (Ventolin Medneb) 18:00 Norepinephrine 8 PHA 02/14/25 In Process Mg/250ml Kit 19:00 Transfer Orders XFER 02/14/25 Transmitted 18:58 Abg W/ Co-Ox RT 02/15/25 Logged 10:32 Complete Blood Count LAB 02/15/25 Logged 13:23 Date of Service: Feb 15, 2025 Billing Provider: FALGUNI CM MD Common Visit Codes: [id number] INP/OBS CARE(HIGH) FALGUNI CM MD Feb 15, 2025 14:01
[2025-02-15 14:24] LABS: Hematocrit 23.0 % (36.0-46.0); Hemoglobin 7.8 g/dL (12.2-16.2); Mean Corpuscular Hemoglobin 27.7 pg (28.0-32.0); Mean Corpuscular Volume 81.7 fL (80.0-100.0); Nucleated Red Blood Cells % 0.7 %
--- NOTE | 2025-02-15 14:42 | DVHPN2 ---
Progress Note Date Seen: Feb 15, 2025 Medical Necessity Reason Pt with a Central, PICC or Fol: Yes The following are medically ne: Central Line, Hook Catheter Subjective Changes from previous H/P or p: Changes (AMS) Review of Systems: Deferred Objective vital signs Vital Sign Date Time Temp Pulse Resp B/P (MAP) Pulse Ox O2 Delivery O2 Flow Rate FiO2 02/15/25 13:54 106/43 02/15/25 12:20 72 13 100 02/15/25 12:12 Room Air* 0 21 02/15/25 05:00 97.5 207.5 Total Intake and Output 02/14/25 02/14/25 02/15/25 15:00 23:00 07:00 Intake Total 210 ml 1134.50 ml 306.25 ml Output Total 175 ml 150 ml Balance 210 ml 959.50 ml 156.25 ml medications Current Medications Medications Dose Ordered Sig/Taran Route Start Time Stop Time Status Last Admin Dose Admin Ondansetron HCl 4 mg Q4HP PRN IV 01/31/25 19:30 02/14/25 07:39 4 MG Acetaminophen 650 mg Q6HP PRN PO 01/31/25 19:30 02/14/25 11:29 650 MG Nitroglycerin 0.4 mg Q5MINP PRN SL 01/31/25 19:30 Carbidopa/Levodopa 2 tab HS PO 01/31/25 22:00 02/13/25 22:41 2 TAB Acetaminophen/ Hydrocodone Bitart 1 tab Q6HPRN PRN PO 02/01/25 03:45 02/13/25 03:40 1 TAB Digoxin 125 mcg DAILY IV 02/02/25 10:00 02/15/25 11:01 125 MCG Diagnostic Test (Pha) 1 strip ACHS 02/03/25 17:00 02/15/25 11:49 1 STRIP Insulin Human Regular ACHS SC 02/03/25 17:00 Dextrose 50 ml UD PRN IV 02/03/25 16:45 02/11/25 06:54 50 ML Levothyroxine Sodium 100 mcg QAM@0600 PO 02/08/25 06:00 02/14/25 05:38 100 MCG Patient Own Medication 160 mg DAILY IV 02/09/25 10:00 UNV Patient Own Medication 1 g Q8H IV 02/08/25 12:30 UNV Ceftolozane/ Tazobactam 3 gm/ Dextrose 100 ml @ 100 mls/hr Q8HR IV 02/08/25 14:00 02/15/25 06:00 100 MLS/HR Enteral Nutritional Formula 240 ml TIDWM PO 02/09/25 12:00 02/14/25 09:01 240 ML Clotrimazole 1 applic DAILY TOP 02/12/25 10:00 02/15/25 11:23 1 APPLIC Patient Own Medication 1 DAILY TOP 02/12/25 10:00 02/15/25 10:00 1 Enoxaparin Sodium 40 mg BID SC 02/12/25 22:00 02/15/25 11:00 40 MG Budesonide 0.5 mg BID NEB 02/13/25 10:00 02/15/25 07:10 0.5 MG Iron Sucrose 110 ml @ 110 mls/hr DAILY@1200 IV 02/13/25 12:00 02/17/25 12:59 02/15/25 13:49 110 MLS/HR Bumetanide 2 mg TID IV 02/13/25 22:00 02/15/25 13:54 2 MG Midodrine 10 mg TID@0600,1200,1800 PO 02/14/25 12:00 Betamethasone Dipropion Augmented 1 applic DAILY TOP 02/14/25 13:30 02/15/25 11:23 1 APPLIC Albuterol 2.5 mg Q6HR NEB 02/14/25 18:00 02/15/25 12:12 2.5 MG Norepinephrine Bitartrate 250 ml @ 3.75 mls/hr Q24H IV 02/14/25 19:00 02/14/25 19:01 3.75 MLS/HR Hydrocortisone Sodium Succinate 50 mg Q6HR IV 02/14/25 19:45 02/15/25 13:49 50 MG laboratory and microbiology Laboratory Tests 02/15/25 05:00 Test 02/15/25 05:00 Range/Units Serum Glucose 122 H 74-106 mg/dL Microbiology Date/Time Source Procedure Growth Status 02/08/25 22:15 Urine - Hook Port Urine Culture - Final Enterococcus faecalis Complete 02/08/25 20:11 Blood Blood Culture - Final NO GROWTH AFTER 5 DAYS OF INCUBATION. Complete 02/03/25 00:50 Nose MRSA Screen - Final Complete Problem List/Assessment/Plan Problem List/Assessment/Plan Acute kidney injury hemodynamic mediated etiology Hyponatremia in the setting of anasarca Hypokalemia AFib acute diastolic heart failure Septic Shock Horseshoe kidney history of ureteral stent Status post TAVR Hypertension History of DVT anemia w/ Iron depletion Altered mental state Bumex IVP from drip Significant anasarca but BP has been low BP support change florinef to midodrine due to hypokalemia and water retention. Per nurse did not receive doses due to altered mental status and inability to swallow p.o. if patient can not tolerate oral pressor support then recommend resuming IV potassium supplementation discontinued as potassium is normalized IV iron , strict I/O Given new elevated white count and change in mental state recommend septic workup noted to have elevated WBC consider Infectious Disease consultation and broaden antibiotic measures as well as cheek cultures. Overall prognosis is poor as patient has significant cardiopulmonary instability and refractory hypervolemia. Patient is a poor long-term candidate for dialysis and acute inpatient dialysis still has a high-risk of cardiac events. Prognosis is very guarded recommend advanced care discussions Plan discussed with: Other (nurse) My Orders My Orders Orders - MICHELA AMEZQUITA MD Procedure Category Date Status Time Basic Metabolic Panel LAB 02/16/25 Verified 04:00 Magnesium LAB 02/16/25 Verified 04:00 Complete Blood Count LAB 02/16/25 Verified 04:00 Dietary Evaluation Review Comments: 1. CCHO-60 2 gNa diet w 45g proein restriction 2. Try Devin for wound healing 3. Wt management 4. F/U with nephrology and updated lab values Expected Outcomes/Goals: Less uremic syndrome, controlled DM Total Time (mins): 50 MICHELA AMEZQUITA MD Feb 15, 2025 14:42
--- NOTE | 2025-02-15 15:31 | DVH ---
Exam: CT HEAD WITHOUT CONTRAST History: CHANGE IN STATUS Technique: [address] images through the posterior fossa and the supratentorial compart ment were acquired without contrast and imaged using soft tissue and bone algorithms. RADIATION DOSE: DLP 1183.76 mGy.cm; CTDI vol 60.16 mGy. Comparison: CT HEAD WITHOUT CONTRAST on DOS: 01/31/25, CT HEAD WITHOUT CONTRAST on DOS: 01/15/25 Findings: There is no evidence of an intracranial hemorrhage, acute large vessel infarct, mass effect, or midli ne shift. There is moderate cerebral atrophy. Chronic small-vessel ischemic disease. Small left temporal lobe l acunar infarct, similar to prior. Moderate calcification of the carotid siphons. The calvarium, orbits, paranasal sinuses, sella, middle ears, and mastoids are unremarkable. The superficial soft tissues are within normal limits. Impression: 1. No acute intracranial abnormality.
--- NOTE | 2025-02-15 22:45 | DVHPN2 ---
Consult Progress Note Date Seen: Feb 15, 2025 Subjective Patient reports: Feels better (patient mentatting well, feels she is breathingbetter) Objective vital signs Vital Sign Date Time Temp Pulse Resp B/P (MAP) Pulse Ox O2 Delivery O2 Flow Rate FiO2 02/15/25 22:00 91 02/15/25 22:00 19 98 Room Air* 0 21 02/15/25 21:19 109/46 02/15/25 20:45 97.7 207.9 Total Intake and Output 02/14/25 02/14/25 02/15/25 14:59 22:59 06:59 Intake Total 210 ml 1112.50 ml 205.75 ml Output Total 175 ml 150 ml Balance 210 ml 937.50 ml 55.75 ml medications Current Medications Medications Dose Ordered Sig/Taran Route Start Time Stop Time Status Last Admin Dose Admin Ondansetron HCl 4 mg Q4HP PRN IV 01/31/25 19:30 02/14/25 07:39 4 MG Acetaminophen 650 mg Q6HP PRN PO 01/31/25 19:30 02/14/25 11:29 650 MG Nitroglycerin 0.4 mg Q5MINP PRN SL 01/31/25 19:30 Carbidopa/Levodopa 2 tab HS PO 01/31/25 22:00 02/13/25 22:41 2 TAB Acetaminophen/ Hydrocodone Bitart 1 tab Q6HPRN PRN PO 02/01/25 03:45 02/13/25 03:40 1 TAB Digoxin 125 mcg DAILY IV 02/02/25 10:00 02/15/25 11:01 125 MCG Diagnostic Test (Pha) 1 strip ACHS 02/03/25 17:00 02/15/25 17:34 1 STRIP Insulin Human Regular ACHS SC 02/03/25 17:00 Dextrose 50 ml UD PRN IV 02/03/25 16:45 02/11/25 06:54 50 ML Levothyroxine Sodium 100 mcg QAM@0600 PO 02/08/25 06:00 02/14/25 05:38 100 MCG Patient Own Medication 160 mg DAILY IV 02/09/25 10:00 UNV Patient Own Medication 1 g Q8H IV 02/08/25 12:30 UNV Ceftolozane/ Tazobactam 3 gm/ Dextrose 100 ml @ 100 mls/hr Q8HR IV 02/08/25 14:00 02/15/25 21:23 100 MLS/HR Enteral Nutritional Formula 240 ml TIDWM PO 02/09/25 12:00 02/14/25 09:01 240 ML Clotrimazole 1 applic DAILY TOP 02/12/25 10:00 02/15/25 11:23 1 APPLIC Patient Own Medication 1 DAILY TOP 02/12/25 10:00 02/15/25 10:00 1 Enoxaparin Sodium 40 mg BID SC 02/12/25 22:00 02/15/25 21:18 40 MG Budesonide 0.5 mg BID NEB 02/13/25 10:00 02/15/25 18:44 0.5 MG Iron Sucrose 110 ml @ 110 mls/hr DAILY@1200 IV 02/13/25 12:00 02/17/25 12:59 02/15/25 13:49 110 MLS/HR Bumetanide 2 mg TID IV 02/13/25 22:00 02/15/25 21:19 2 MG Midodrine 10 mg TID@0600,1200,1800 PO 02/14/25 12:00 Betamethasone Dipropion Augmented 1 applic DAILY TOP 02/14/25 13:30 02/15/25 11:23 1 APPLIC Albuterol 2.5 mg Q6HR [facility] 02/14/25 18:00 02/15/25 18:44 2.5 MG Norepinephrine Bitartrate 250 ml @ 3.75 mls/hr Q24H IV 02/14/25 19:00 02/14/25 19:01 3.75 MLS/HR Hydrocortisone Sodium Succinate 50 mg Q6HR IV 02/14/25 19:45 02/15/25 17:40 50 MG -ROS: - CONSTITUTIONAL: Denies weight loss, fever and chills. - HEENT: Denies changes in vision and hearing. - ?RESPIRATORY: Denies SOB and cough.? - CV: Denies palpitations and CP. ? - GI: Denies abdominal pain, nausea, vomiting and diarrhea.? - : Denies dysuria and urinary frequency.? - MSK: Denies myalgia and joint pain.? - SKIN: Denies rash and pruritus. - ?NEUROLOGICAL: Denies headache and syncope.? - PSYCHIATRIC: Denies recent changes in mood. Denies anxiety and depression. PHYSICAL EXAM: - GENERAL: Alert and oriented x 3. No acute distress. Well-nourished. ? - EYES: EOMI. Anicteric. ?- HENT: Moist mucous membranes. No scleral icterus. No cervical lymphadenopathy. ?- LUNGS: Clear to auscultation bilaterally. No accessory muscle use.? - CARDIOVASCULAR: Regular rate and rhythm. No murmur. No JVD.? - ABDOMEN: Soft, non-tender and non-distended. No palpable masses.? - EXTREMITIES: No edema. Non-tender.?SKIN: No rashes or lesions. Warm. ? - NEUROLOGIC: No focal neurological deficits. CN II-XII grossly intact, but not individually tested.? - PSYCHIATRIC: Cooperative. Appropriate mood and affect. laboratory and microbiology Laboratory Tests 02/15/25 14:09 02/15/25 05:00 Test 02/15/25 05:00 Range/Units Serum Glucose 122 H 74-106 mg/dL Problem List/Assessment/Plan Problems(with codes): (1) COPD exacerbation (2) Acute renal failure (ARF) (3) Hyponatremia (4) Acute renal injury (5) Leukocytosis, unspecified Problem List/Assessment/Plan very low suspicion for ongoing infection - patient has NO evidence of active infection, (sacral wound has been inspected multiple times, weeping is noted, patient hx of enterococcus colonization and MDRO pseudomonas colonization, these are being covered by Zerbaxa) continue Zerbaxa for now out of abundance of precaution check lactic acid level suspect leukocytosis is due to hydrocortisone use if concerned for infection, please stop IV iron use, which can excacerbate infections, defer to primary service on discontinuation and overall suspicion for ongoing has been and continues to be low continue to recommend to not overdiurese patient, patient has evidence of intravascular depletion, resulting in naseem and hypotension. albumin as needed , defer to primary team if there are questions regarding patient's infection status please do not hesitate to call me Authorized and Performed by: funmi mclaughlin Total critical care time: Approximately 76 minutes Due to a high probability of clinically significant, life threatening deterioration, the patient required my highest level of preparedness to intervene emergently and I personally spent this critical care time directly and personally managing the patient. This critical care time included obtaining a history; examining the patient; pulse oximetry; ordering and review of studies; arranging urgent treatment with development of a management plan; evaluation of patient's response to treatment; frequent reassessment; and, discussions with other providers. This critical care time was performed to assess and manage the high probability of imminent, life-threatening deterioration that could result in multi-organ failure. It was exclusive of separately billable procedures and treating other patients and teaching time. Plan discussed with: Patient Dietary Evaluation Review Comments: 1. CCHO-60 2 gNa diet w 45g proein restriction 2. Try Devin for wound healing 3. Wt management 4. F/U with nephrology and updated lab values Expected Outcomes/Goals: Less uremic syndrome, controlled DM FUNMI MCLAUGHLIN MD Feb 15, 2025 22:45
[2025-02-15 23:14] LABS: Calcium 5.5 mg/dL (8.7-10.4)
--- NOTE | 2025-02-15 23:29 | DVHPN2 ---
[facility] DOS: 02/15/25 Patient seen and examined at bedside. Breathing on room air. Overnight events reviewed. HPI: An 79-year-old woman with PMHx of CHF, chronic kidney disease, diabetes mellitus, hypertension, AFib, thyroid disease and anemia who presented to ED on 02/01/25 for evaluation of altered mental status. Patient was recently discharged after being treated for sepsis. Patient was acting lethargic and altered on day prior to presentation, therefore family brought her in for further evaluation. Patient was lethargic, oriented times two on day of presentation. No unilateral weakness noted or slurred speech. No cardiac or respiratory symptoms. Patient was admitted for further care. Pulmonary consultation is requested for evaluation and management d/t pleural effusions. Past Medical History CHF, chronic kidney disease, diabetes mellitus, hypertension, thyroid, anemia, AFib Past Surgical History Tonsillectomy Family History Noncontributory Social History No smoking, alcohol or illicit drug use. Medications: Reviewed. Allergies: Penicillins (Unverified Allergy, Severe, 03/16/15) Sulfa Antibiotics (Unverified Allergy, Severe, 03/16/15) Morphine (Verified Allergy, Intermediate, ALTERED, 01/31/18) Ceftriaxone (Verified Allergy, Unknown, 01/31/18) Reviewed: Care Plan, H&P, Labs, Medications, Previous Orders, Radiology Changes from previous H/P or p: No Changes Objective Vitals Vital Signs Date Time Temp Pulse Resp B/P (MAP) Pulse Ox O2 Delivery O2 Flow Rate FiO2 02/15/25 22:15 98.4 82 17 112/42 (65) 99 209.1 02/15/25 22:00 Room Air* 0 21 Intake/Output Intake and Output 02/15/25 07:00 Intake Total 1650.75 ml Output Total 325 ml Balance 1325.75 ml Intake Oral 760 ml IV Total 890.75 ml Output Urine Total 325 ml # Bowel Movements 3 General Appearance: Alert, Other (Disoriented) HEENT: Atraumatic, PERRLA, EOMI Lungs: Other (Decreased air movement bilaterally. Wheezing. No rhonchi) Cardiovascular: Regular rate, Normal S1, Normal S2 Abdomen: Normal bowel sounds, Soft, No tenderness Musculoskeletal: Normal sensory function, Normal motor function Extremities: Other (2+ edema bilaterally in the lower extremities) Neuro: Strength at 5/5 X4 ext, Cranial nerves 3-12 NL Skin: Significant Lesion, Dry, Intact, Warm Psych/Mental Status: Mental status NL, Mood NL Medications Current Medications Medications Dose Ordered Sig/Taran Route Start Time Stop Time Status Last Admin Dose Admin Ondansetron HCl 4 mg Q4HP PRN IV 01/31/25 19:30 02/14/25 07:39 4 MG Acetaminophen 650 mg Q6HP PRN PO 01/31/25 19:30 02/14/25 11:29 650 MG Nitroglycerin 0.4 mg Q5MINP PRN SL 01/31/25 19:30 Carbidopa/Levodopa 2 tab HS PO 01/31/25 22:00 02/13/25 22:41 2 TAB Acetaminophen/ Hydrocodone Bitart 1 tab Q6HPRN PRN PO 02/01/25 03:45 02/13/25 03:40 1 TAB Digoxin 125 mcg DAILY IV 02/02/25 10:00 02/15/25 11:01 125 MCG Diagnostic Test (Pha) 1 strip ACHS 02/03/25 17:00 02/15/25 22:26 1 STRIP Insulin Human Regular ACHS SC 02/03/25 17:00 Dextrose 50 ml UD PRN IV 02/03/25 16:45 02/11/25 06:54 50 ML Levothyroxine Sodium 100 mcg QAM@0600 PO 02/08/25 06:00 02/14/25 05:38 100 MCG Patient Own Medication 160 mg DAILY IV 02/09/25 10:00 UNV Patient Own Medication 1 g Q8H IV 02/08/25 12:30 UNV Ceftolozane/ Tazobactam 3 gm/ Dextrose 100 ml @ 100 mls/hr Q8HR IV 02/08/25 14:00 02/15/25 21:23 100 MLS/HR Enteral Nutritional Formula 240 ml TIDWM PO 02/09/25 12:00 02/14/25 09:01 240 ML Clotrimazole 1 applic DAILY TOP 02/12/25 10:00 02/15/25 11:23 1 APPLIC Patient Own Medication 1 DAILY TOP 02/12/25 10:00 02/15/25 10:00 1 Enoxaparin Sodium 40 mg BID SC 02/12/25 22:00 02/15/25 21:18 40 MG Budesonide 0.5 mg BID NEB 02/13/25 10:00 02/15/25 18:44 0.5 MG Iron Sucrose 110 ml @ 110 mls/hr DAILY@1200 IV 02/13/25 12:00 02/17/25 12:59 02/15/25 13:49 110 MLS/HR Bumetanide 2 mg TID IV 02/13/25 22:00 02/15/25 21:19 2 MG Midodrine 10 mg TID@0600,1200,1800 PO 02/14/25 12:00 Betamethasone Dipropion Augmented 1 applic DAILY TOP 02/14/25 13:30 02/15/25 11:23 1 APPLIC Albuterol 2.5 mg Q6HR NEB 02/14/25 18:00 02/15/25 18:44 2.5 MG Norepinephrine Bitartrate 250 ml @ 3.75 mls/hr Q24H IV 02/14/25 19:00 02/14/25 19:01 3.75 MLS/HR Hydrocortisone Sodium Succinate 50 mg Q6HR IV 02/14/25 19:45 02/15/25 17:40 50 MG Laboratory Results Laboratory Tests 02/15/25 05:00 02/15/25 14:09 Chemistry Test 02/15/25 05:00 Calcium Level 9.4 mg/dL (8.7-10.4) Magnesium Level 2.5 mg/dL (1.6-2.6) # Urinalysis Test 01/31/25 16:30 02/08/25 11:45 Urine Hyaline Casts Few /lpf (0 - 2) Urine Mucus Few (None Seen) Urine Color Yellow (Yellow) Urine Clarity Cloudy (Clear) H Urine pH 5.5 (5.0-9.0) Urine Specific [place] 1.013 (1.001-1.035) Urine Protein 1+ (Negative) H Urine Ketones Negative (Negative) Urine Blood 1+ /uL (Negative) H Urine Nitrite Negative (Negative) Urine Bilirubin Negative (Negative) Urine Urobilinogen Normal mg/dL (Negative) Urine Leukocyte Esterase 3+ /uL (Negative) Urine RBC 110 /hpf (0 - 4) Urine WBC Clumps Present /hpf (None Seen) Urine Microscopic WBC 1269 /HPF (0-5) H Urine Squamous Epithelial Cells Few /hpf (<5) Urine Bacteria Few /hpf (None Seen) H Urine Yeast (Budding) Loaded /hpf (None Seen) Urine Glucose Normal mg/dL (Normal) Blood Gas Results Test 02/15/25 11:13 Arterial Blood pH 7.473 (7.350-7.450) FiO2 % 21.0 Microbiology Microbiology Date/Time Source Procedure Growth Status 02/08/25 22:15 Urine - Hook Port Urine Culture - Final Enterococcus faecalis Complete 02/08/25 20:11 Blood Blood Culture - Final NO GROWTH AFTER 5 DAYS OF INCUBATION. Complete 02/03/25 00:50 Nose MRSA Screen - Final Complete Assessment/Plan Assessment/Plan Impression: Acute metabolic encephalopathy Septic shock due to UTI Morbid obesity, BMI 42.3 Snoring, likely ARPAN Urinary tract infection Congestive heart failure (HFpEF) Hyponatremia Pleural effusions Atelectasis Events: Breathing on room air Supplemental oxygen PRN Patient underwent femoral central line placement for administration of pressors as unable to place IJ or SCV line - unable to thread line. See separate procedure note for details. Head CT negative for ICH or stroke. Neurology recs appreciated. Continue bronchodilators Continue Pulmicort Received STAT racemic epinephrine + Pulmicort BID yesterday for upper airway wheezing, with resolution of wheezing. Continue antibiotics Follow up ID recommendations On stress dose steroids - hydrocortisone 50 mg IVP q.6 hours Incentive spirometry Pressors for hemodynamic support On Levophed 2 mcg/min Titrate to keep mean arterial pressure greater than 65 mmHg. Improved pressor requirements On Florinef. Monitor hemoglobin Continue IV iron supplementation Continue Bumex drip for diuresis Monitor renal function Monitor electrolytes. Supplement as necessary. Nephrology recommendations appreciated. Continue Lovenox BID for DVT ppx. Labs and imaging reviewed. Rest of plan as noted below. Plan: Supplemental oxygen PRN Titrate to keep O2 sats above 92%. Bronchodilators PRN. Continue antibiotics Incentive spirometry Pressors as necessary for hemodynamic support Titrate to keep mean arterial pressure greater than 65 mmHg. Follow up Cardiology recs Diurese to euvolemia Monitor renal function. Monitor electrolytes. Supplement as necessary. Monitor sodium Monitor ins and outs. DVT prophylaxis - Lovenox. Prognosis: Poor given patient's multiple co-morbidities. Condition: Critical Rest of plan per hospitalist and other consultants. A total of 35 minutes of critical care time was spent reviewing the patient record, examining the patient, making a diagnostic and therapeutic plan, discussing this plan with the medical personnel, following up on diagnostic studies and following the patient for clinical stability excluding any and all procedures. At least 50% of this time was spent in direct, [id number] contact. Thank you, Dr. Castaneda, for allowing me to participate in this patient's care. Further recommendations will depend on the patient's clinical course. Please do not hesitate to contact me if you have any questions or concerns. This medical document was created using an electronic medical record system with [employer] dictation system. Although these documentations are being carefully reviewed, there may still be some phonetic and typographical changes. The errors are purely typographical, due to imperfection on the software program, and do not reflect any compromise in the patient's medical care. Plan discussed with: Patient, Other (RN) Date of Service: Feb 15, 2025 Billing Provider: BENITO WILLARD MD Common Visit Codes: [id number] INP/OBS CARE(HIGH), [id number] CARE 30-74 MIN BENITO WILLARD MD Feb 15, 2025 23:29
[2025-02-16] VITALS (93 sets, daily range): BP systolic 82–175; BP diastolic 28–74; PULSE 66–101; RESP 9–34; TEMP 96.4–99.1; O2SAT 96–100
[2025-02-16 05:37] LABS: Hematocrit 23.5 % (36.0-46.0); Hemoglobin 7.9 g/dL (12.2-16.2)
[2025-02-16 05:39] LABS: Mean Corpuscular Hemoglobin 27.4 pg (28.0-32.0); Mean Corpuscular Volume 81.5 fL (80.0-100.0)
[2025-02-16 05:43] LABS: Chloride 99 mmol/L (98-107); Potassium 4.5 mmol/L (3.5-5.1)
[2025-02-16 05:44] LABS: Anion Gap 15 (5-15)
[2025-02-16 05:45] LABS: Calcium 9.3 mg/dL (8.7-10.4); Carbon Dioxide 19 mmol/L (20-31); Sodium 133 mmol/L (136-145)
[2025-02-16 05:49] LABS: BUN/Creatinine Ratio 44.4 (10.0-20.0); Glucose 105 mg/dL (74-106)
[2025-02-16 05:50] LABS: Blood Urea Nitrogen 72 mg/dL (9-23); Magnesium 2.4 mg/dL (1.6-2.6)
[2025-02-16 06:28] LABS: Total Cells Counted 100.0 (100)
--- NOTE | 2025-02-16 11:33 | DVHPN2 ---
Assessment/Plan Assessment/Plan progress note dc iron, add wilmar bandage while diuresing. sending b1 b12. midodrine physical exam alert, not oriented s1 s2 rrr coarse breath sounds abdomen soft nontender anasarca assessment and plan Acute metabolic encephalopathy Septic shock due to UTI UTI Recent sepsis with a wound infection due to Pseudomonas aeruginosa MDRO Morbid obesity Bed-bound Type 2 diabetes Acute kidney injury Left hydronephrosis [place]orseshoe kidney Status post ureteral stent Chronic anemia Hyponatremia Atrial fibrillation Heart failure with preserved ejection fraction zerbaxa bumex wound care midodrine pressor maintain map >65 stress dose steroid diet dvt ppx lovenox condition critical prognosis poor full code crit care time 45 minutes Plan discussed with: Patient My Orders Orders - SHERRILL PACHECO MD Procedure Category Date Status Time Complete Blood Count LAB 02/17/25 Verified 04:00 Comprehensive LAB 02/17/25 Verified Metabolic Panel 04:00 Magnesium LAB 02/17/25 Verified 04:00 Phosphorus LAB 02/17/25 Verified 04:00 B-Type Natriuretic LAB 02/16/25 Transmitted Peptide 11:28 Vitamin B1 (Thiamine) LAB 02/16/25 Transmitted 11:28 Vitamin B12 LAB 02/16/25 Transmitted 11:28 Date of Service: Feb 16, 2025 Billing Provider: SHERRILL PACHECO MD Common Visit Codes: [id number] CARE 30-74 MIN SHERRILL PACHECO MD Feb 16, 2025 11:32
[2025-02-16] MEDS: HYDROCORTISONE SOD SUCC 100 MG/2ML INJ VIAL IV SCH (14:07)
--- NOTE | 2025-02-16 14:45 | DVHPN2 ---
Progress Note - Dictate Date Seen: Feb 16, 2025 Medical Necessity Reason Pt with a Central, PICC or Fol: Yes The following are medically ne: Central Line, Hook Catheter Subjective SHE BECAME UNRESPONSIVE BLOOD SUGAR 166 SHE WAS MILDLY HYPOTENSIVE HAD LEFT SIGHT ARM MOVEMENT LASTED ABOUT 10 MINUTES TOTAL/ NO CLEAR POST ICTAL PERIOD PRESENTATION CONSISTENT WITH METABOLIC SYNDROME/ INFECTION ESPECIALLY WITH HER RECENT ADMISSION FOR SEPSIS/ BACTEREMIA RECENT HX OF HYPOTENSION POSITIVE BLOOD CX STAPH PRODUCTIVE COUGH HYPOXIA SEVERE ANEMIA HX OF BLEEDING DIATHESIS NOW BEING TRANSFUSE PMH; HEMATURIA HX OF ORGANIC HD S/P TAVR HX OF AV STENOSIS HTN HFpEF DIASTOLIC DYSFUNCTION AFIB ON SOTALOL HYPERCOAGULABLE STATE HX OF DVT MORBID OBESITY 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 ANEMIA HYPONATREMIA DECUB STAGE II MULTIPLE ORGANISM PSEUDOMONAS vital signs Vital Sign Date Time Temp Pulse Resp B/P (MAP) Pulse Ox O2 Delivery O2 Flow Rate FiO2 02/16/25 14:31 97.9 78 18 156/59 (91) 98 208.2 02/16/25 14:00 Room Air* 0 21 Total Intake and Output 02/15/25 02/15/25 02/16/25 15:00 23:00 07:00 Intake Total 292.75 ml 130.00 ml 26.25 ml Output Total 350 ml 250 ml Balance 292.75 ml -220.00 ml -223.75 ml medications Current Medications Medications Dose Ordered Sig/Taran Route Start Time Stop Time Status Last Admin Dose Admin Ondansetron HCl 4 mg Q4HP PRN IV 01/31/25 19:30 02/14/25 07:39 4 MG Acetaminophen 650 mg Q6HP PRN PO 01/31/25 19:30 02/14/25 11:29 650 MG Nitroglycerin 0.4 mg Q5MINP PRN SL 01/31/25 19:30 Carbidopa/Levodopa 2 tab HS PO 01/31/25 22:00 02/13/25 22:41 2 TAB Acetaminophen/ Hydrocodone Bitart 1 tab Q6HPRN PRN PO 02/01/25 03:45 02/13/25 03:40 1 TAB Digoxin 125 mcg DAILY IV 02/02/25 10:00 02/16/25 09:47 125 MCG Diagnostic Test (Pha) 1 strip ACHS 02/03/25 17:00 02/16/25 11:30 1 STRIP Insulin Human Regular ACHS SC 02/03/25 17:00 Dextrose 50 ml UD PRN IV 02/03/25 16:45 02/11/25 06:54 50 ML Levothyroxine Sodium 100 mcg QAM@0600 PO 02/08/25 06:00 02/14/25 05:38 100 MCG Patient Own Medication 160 mg DAILY IV 02/09/25 10:00 UNV Patient Own Medication 1 g Q8H IV 02/08/25 12:30 UNV Ceftolozane/ Tazobactam 3 gm/ Dextrose 100 ml @ 100 mls/hr Q8HR IV 02/08/25 14:00 02/16/25 14:05 100 MLS/HR Enteral Nutritional Formula 240 ml TIDWM PO 02/09/25 12:00 02/14/25 09:01 240 ML Clotrimazole 1 applic DAILY TOP 02/12/25 10:00 02/16/25 09:39 1 APPLIC Patient Own Medication 1 DAILY TOP 02/12/25 10:00 02/16/25 09:39 1 Enoxaparin Sodium 40 mg BID SC 02/12/25 22:00 02/16/25 09:48 40 MG Budesonide 0.5 mg BID NEB 02/13/25 10:00 02/16/25 07:06 0.5 MG Bumetanide 2 mg TID IV 02/13/25 22:00 02/16/25 14:07 2 MG Midodrine 10 mg TID@0600,1200,1800 PO 02/14/25 12:00 Betamethasone Dipropion Augmented 1 applic DAILY TOP 02/14/25 13:30 02/16/25 09:39 1 APPLIC Albuterol 2.5 mg Q6HR NEB 02/14/25 18:00 02/16/25 13:00 2.5 MG Norepinephrine Bitartrate 250 ml @ 3.75 mls/hr Q24H IV 02/14/25 19:00 02/14/25 19:01 3.75 MLS/HR Hydrocortisone Sodium Succinate 50 mg Q8HR IV 02/16/25 14:00 02/16/25 14:07 50 MG laboratory and microbiology Laboratory Tests 02/16/25 05:07 Test 02/16/25 05:07 Range/Units Serum Glucose 105 74-106 mg/dL Problem List SHE BECAME UNRESPONSIVE BLOOD SUGAR 166 HYPOTENSIVE HAD LEFT SIGHT ARM MOVEMENT LASTED ABOUT 10 MINUTES TOTAL/ NO CLEAR POST ICTAL PERIOD PRESENTATION CONSISTENT WITH METABOLIC SYNDROME/ INFECTION ESPECIALLY WITH HER RECENT ADMISSION FOR SEPSIS/ BACTEREMIA RECENT HX OF HYPOTENSION POSITIVE BLOOD CX STAPH PRODUCTIVE COUGH HYPOXIA SEVERE ANEMIA HX OF BLEEDING DIATHESIS NOW BEING TRANSFUSE PMH; HEMATURIA HX OF ORGANIC HD S/P TAVR HX OF AV STENOSIS HTN HFpEF DIASTOLIC DYSFUNCTION AFIB ON SOTALOL HYPERCOAGULABLE STATE HX OF DVT MORBID OBESITY 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 ANEMIA HYPONATREMIA PSEUDOMONAS INFECTION Assessment/Plan ABX PRESSORS WOUND CARE TRIPLE LUMEN INSERTION DC LASIX LABS START DOPAMINE RENAL PERFUSION STOOL OCCULT BLOOD SECONDARY TO HIGH BUN / CR RATIO WILL RESTART LASIX IN AM 3% saline resume gent and meropenem DC ABOVE ABX TREATMENT FOR YEAST AND VRE ENTEROCOCCUS titrate off levo START FLORINEF DC FLORINEF STARTED ON MIDODRINE CORRECT K THE MOMENT FLORINEF WAS DISCONTINUED BP DROPPED NOW WBC GOING UP AGAIN BECAUSE OF CHANGE IN ABX ABG CT NEGATIVE OF HEAD CXR NEGATIVE TITRATE OFF STEROIDS Dietary Evaluation Review Comments: 1. CCHO-60 2 gNa diet w 45g proein restriction 2. Try Devin for wound healing 3. Wt management 4. F/U with nephrology and updated lab values Expected Outcomes/Goals: Less uremic syndrome, controlled DM Plan discussed with: Patient Critical Care Time(min): 35 MONTRELL RANKIN MD Feb 16, 2025 14:45
--- NOTE | 2025-02-16 15:23 | DVHPN2 ---
Progress Note Date Seen: Feb 16, 2025 Medical Necessity Reason Pt with a Central, PICC or Fol: Yes The following are medically ne: Central Line, Hook Catheter Subjective Review of Systems No response to stimuli, per RN it is not new. Significant anasarca noted. Patient reports: No new complaints Objective vital signs Vital Sign Date Time Temp Pulse Resp B/P (MAP) Pulse Ox O2 Delivery O2 Flow Rate FiO2 02/16/25 14:31 97.9 78 18 156/59 (91) 98 208.2 02/16/25 14:00 Room Air* 0 21 Total Intake and Output 02/15/25 02/15/25 02/16/25 15:00 23:00 07:00 Intake Total 292.75 ml 130.00 ml 26.25 ml Output Total 350 ml 250 ml Balance 292.75 ml -220.00 ml -223.75 ml medications Current Medications Medications Dose Ordered Sig/Taran Route Start Time Stop Time Status Last Admin Dose Admin Ondansetron HCl 4 mg Q4HP PRN IV 01/31/25 19:30 02/14/25 07:39 4 MG Acetaminophen 650 mg Q6HP PRN PO 01/31/25 19:30 02/14/25 11:29 650 MG Nitroglycerin 0.4 mg Q5MINP PRN SL 01/31/25 19:30 Carbidopa/Levodopa 2 tab HS PO 01/31/25 22:00 02/13/25 22:41 2 TAB Acetaminophen/ Hydrocodone Bitart 1 tab Q6HPRN PRN PO 02/01/25 03:45 02/13/25 03:40 1 TAB Digoxin 125 mcg DAILY IV 02/02/25 10:00 02/16/25 09:47 125 MCG Diagnostic Test (Pha) 1 strip ACHS 02/03/25 17:00 02/16/25 11:30 1 STRIP Insulin Human Regular ACHS SC 02/03/25 17:00 Dextrose 50 ml UD PRN IV 02/03/25 16:45 02/11/25 06:54 50 ML Levothyroxine Sodium 100 mcg QAM@0600 PO 02/08/25 06:00 02/14/25 05:38 100 MCG Patient Own Medication 160 mg DAILY IV 02/09/25 10:00 UNV Patient Own Medication 1 g Q8H IV 02/08/25 12:30 UNV Ceftolozane/ Tazobactam 3 gm/ Dextrose 100 ml @ 100 mls/hr Q8HR IV 02/08/25 14:00 02/16/25 14:05 100 MLS/HR Enteral Nutritional Formula 240 ml TIDWM PO 02/09/25 12:00 02/14/25 09:01 240 ML Clotrimazole 1 applic DAILY TOP 02/12/25 10:00 02/16/25 09:39 1 APPLIC Patient Own Medication 1 DAILY TOP 02/12/25 10:00 02/16/25 09:39 1 Enoxaparin Sodium 40 mg BID SC 02/12/25 22:00 02/16/25 09:48 40 MG Budesonide 0.5 mg BID NEB 02/13/25 10:00 02/16/25 07:06 0.5 MG Bumetanide 2 mg TID IV 02/13/25 22:00 02/16/25 14:07 2 MG Midodrine 10 mg TID@0600,1200,1800 PO 02/14/25 12:00 Betamethasone Dipropion Augmented 1 applic DAILY TOP 02/14/25 13:30 02/16/25 09:39 1 APPLIC Albuterol 2.5 mg Q6HR NEB 02/14/25 18:00 02/16/25 13:00 2.5 MG Norepinephrine Bitartrate 250 ml @ 3.75 mls/hr Q24H IV 02/14/25 19:00 02/14/25 19:01 3.75 MLS/HR Hydrocortisone Sodium Succinate 50 mg Q8HR IV 02/16/25 14:00 02/16/25 14:07 50 MG Examination Gen: NAD Heart: RRR Lungs: bilateral air entry Ext: + edema Neuro: No response to stimuli laboratory and microbiology Laboratory Tests 02/16/25 05:07 Test 02/16/25 05:07 Range/Units Serum Glucose 105 74-106 mg/dL Microbiology Date/Time Source Procedure Growth Status 02/08/25 22:15 Urine - Hook Port Urine Culture - Final Enterococcus faecalis Complete 02/08/25 20:11 Blood Blood Culture - Final NO GROWTH AFTER 5 DAYS OF INCUBATION. Complete 02/03/25 00:50 Nose MRSA Screen - Final Complete Labs and/or images reviewed: Labs reviewed by me Problem List/Assessment/Plan Problem List/Assessment/Plan IMP Acute kidney injury hemodynamic mediated etiology- eGFR 32, creat 1.62 Hyponatremia in the setting of anasarca- Na 133 Hypokalemia- resolved AFib acute diastolic heart failure Septic Shock [place] kidney history of ureteral stent Status post TAVR Hypertension History of DVT anemia w/ Iron depletion Altered mental state REC -Serial BMP's -Strict I&Os -Continue Bumex IVP -Significant anasarca -Levophed gtt d/c'd as BP's holding, MAP>60. -Infectious disease on board, close follow-up recommended -Overall prognosis is poor as patient has significant cardiopulmonary instability and refractory hypervolemia. Patient is a poor long-term candidate for dialysis and acute inpatient dialysis still has a high-risk of cardiac events. Prognosis is very guarded recommend advanced care discussions Case discussed with Dr. Ayo Morales Plan discussed with: Daughter Dietary Evaluation Review Comments: 1. CCHO-60 2 gNa diet w 45g proein restriction 2. Try Devin for wound healing 3. Wt management 4. 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
[2025-02-16 15:43] LABS: Base Excess -5.0 mmol/L (-2.0-3.0)
[2025-02-17] VITALS (34 sets, daily range): BP systolic 106–151; BP diastolic 1–60; PULSE 71–90; RESP 10–26; TEMP 96.8–98; O2SAT 98–100
[2025-02-17] MEDS: IPRATROPIUM BROM 0.5 MG/2.5ML INH SOL ONE (06:33)
[2025-02-17] MEDS: ALBUTEROL SULF 2.5 MG/0.5ML(0.5%) NEB SOLN ONE (06:33)
[2025-02-17 07:10] LABS: Hemoglobin 7.6 g/dL (12.2-16.2)
[2025-02-17 07:13] LABS: Hematocrit 23.2 % (36.0-46.0); Mean Corpuscular Hemoglobin 27.7 pg (28.0-32.0); Mean Corpuscular Volume 84.9 fL (80.0-100.0); Nucleated Red Blood Cells % 1.9 %
[2025-02-17 07:32] LABS: Alkaline Phosphatase 85 U/L (46-116); Anion Gap 17 (5-15); BUN/Creatinine Ratio 43.4 (10.0-20.0); Calcium 9.2 mg/dL (8.7-10.4); Chloride 102 mmol/L (98-107); Glucose 99 mg/dL (74-106); Magnesium 2.3 mg/dL (1.6-2.6); Potassium 3.9 mmol/L (3.5-5.1)
[2025-02-17 07:43] LABS: Alanine Aminotransferase < 9 U/L (7-40); Albumin 2.6 g/dL (3.2-4.8); Bilirubin, Total 0.2 mg/dL (0.2-1.0); Blood Urea Nitrogen 75 mg/dL (9-23); Carbon Dioxide 17 mmol/L (20-31); Sodium 136 mmol/L (136-145); Total Protein 4.3 g/dL (5.7-8.2)
--- NOTE | 2025-02-17 13:40 | DVHPN2 ---
Consult Progress Note Date Seen: Feb 16, 2025 Objective vital signs Vital Sign Date Time Temp Pulse Resp B/P (MAP) Pulse Ox O2 Delivery O2 Flow Rate FiO2 02/17/25 13:24 115/38 02/17/25 13:00 97.3 78 14 99 207.1 02/17/25 12:00 Room Air* 0 21 Total Intake and Output 02/16/25 02/16/25 02/17/25 15:00 23:00 07:00 Intake Total 107.50 ml 0 ml 0 ml Output Total 350 ml 400 ml Balance 107.50 ml -350 ml -400 ml medications Current Medications Medications Dose Ordered Sig/Taran Route Start Time Stop Time Status Last Admin Dose Admin Ondansetron HCl 4 mg Q4HP PRN IV 01/31/25 19:30 02/14/25 07:39 4 MG Acetaminophen 650 mg Q6HP PRN PO 01/31/25 19:30 02/14/25 11:29 650 MG Nitroglycerin 0.4 mg Q5MINP PRN SL 01/31/25 19:30 Carbidopa/Levodopa 2 tab HS PO 01/31/25 22:00 02/13/25 22:41 2 TAB Acetaminophen/ Hydrocodone Bitart 1 tab Q6HPRN PRN PO 02/01/25 03:45 02/13/25 03:40 1 TAB Digoxin 125 mcg DAILY IV 02/02/25 10:00 02/17/25 07:43 125 MCG Diagnostic Test (Pha) 1 strip ACHS 02/03/25 17:00 02/17/25 11:46 1 STRIP Insulin Human Regular ACHS SC 02/03/25 17:00 Dextrose 50 ml UD PRN IV 02/03/25 16:45 02/11/25 06:54 50 ML Levothyroxine Sodium 100 mcg QAM@0600 PO 02/08/25 06:00 02/14/25 05:38 100 MCG Patient Own Medication 160 mg DAILY IV 02/09/25 10:00 UNV Patient Own Medication 1 g Q8H IV 02/08/25 12:30 UNV Enteral Nutritional Formula 240 ml TIDWM PO 02/09/25 12:00 02/14/25 09:01 240 ML Clotrimazole 1 applic DAILY TOP 02/12/25 10:00 02/17/25 07:44 1 APPLIC Patient Own Medication 1 DAILY TOP 02/12/25 10:00 02/17/25 07:44 1 Enoxaparin Sodium 40 mg BID SC 02/12/25 22:00 02/17/25 07:43 40 MG Budesonide 0.5 mg BID [facility] 02/13/25 10:00 02/17/25 06:36 0.5 MG Bumetanide 2 mg TID IV 02/13/25 22:00 02/17/25 13:24 2 MG Betamethasone Dipropion Augmented 1 applic DAILY TOP 02/14/25 13:30 02/17/25 07:44 1 APPLIC Albuterol 2.5 mg Q6HR [facility] 02/14/25 18:00 02/17/25 12:15 2.5 MG Norepinephrine Bitartrate 250 ml @ 3.75 mls/hr Q24H IV 02/14/25 19:00 02/14/25 19:01 3.75 MLS/HR laboratory and microbiology Laboratory Tests 02/17/25 05:53 Test 02/17/25 05:53 Range/Units Serum Glucose 99 74-106 mg/dL Problem List/Assessment/Plan Problem List/Assessment/Plan Assessment: #Acute complicated urinary tract infection, with Enterococcus faecium VRE and presumptive Leidy albicans on gentamicin #Changed Hook's catheter with repeat culture on yeast likely normal luiz. #Sacral and buttock ulcers, including possible psoriatic involvement , negative blood culture from 01/31/2025 #Infected sacral ulcer #Septic shock, possibly due to more than one source of infection #Poor oral hygiene with dental caries, aspiration risk #Thrombocytopenia mild, limiting the use of linezolid #History of MDR Pseudomonas aeruginosa and ESBL E coli UTI history #Known allergy to ceftriaxone, morphine, penicillins and sulfa antibiotics #Recent sepsis related hospitalization in December 2024 #Past Surgical History of Tonsillectomy, negative for nasal MRSA colonization #Previous history of MRSA nasal colonization, status post decolonized #History of recurrent ESBL UTI #H/o Staphylococcus hominis, Staphylococcus auricularis, Staphylococcus epidermidis and ESBL E coli bacteremia in 2021 and 2018 respectively #intertrigo on topical nystatin antifungal powder - #Toxic versus metabolic encephalopathy secondary to sepsis #Diabetes mellitus # psoriasis #Hypovolemic hyponatremia #Yet to rule out digoxin toxicity #Anemia of chronic disease mixed with iron-deficiency anemia #[id number] protein energy malnutrition #Grade 3 obesity, chronically bed-bound #Congenital, horseshoe shaped kidney #Left hydronephrosis status post urethral stent #Heart failure with preserved ejection fraction #Acute kidney injury secondary to VMN #Chronic kidney disease (CKD) #H/o essential Hypertension #Hypothyroidism on levothyroxine #Hypovitaminosis D #Atrial fibrillation on Eliquis #Secondary hypercoagulable state #History of slow GI bleed #Parkinsonism #Restless leg syndrome #Osteoarthritis with or without component of psoriatic arthritis Plan: # No ongoing signs of infection # bacteriuria- Hook's may not be changed as organism may be commensal. However if concerned about UTI, can change Hook's. # Shock resolved. Unlikely to be septic as there is no signs of infection. # Increased WBC may be due to hydrocortisone # Stopped antibiotics (Zerbaxa) # Using IV iron in septic shock is contraindicated. However do not stop IV iron since there is no signs of active infection. # Patient has hyponatremia, increased BUN, on Bumex drip, not much urine after diuresis. Highly consider volume depletion is the cause of hypotension, Do not suspect infection is the cause of hypotension # Plan for diuresis deferred to qa test lead # sputum culture ordered, pending # recommend albumin infusion # Please hold further IV Lasix drip cautiously, rehydrate along with high- protein diet for oncotic pressure. Will consult Nephrology for expert opinion. # Avoid overtreatment of urine culture organisms; current findings likely represent colonization. Urine culture most likely colonization, continue Zerbaxa. # Further wound assessment and management for sacral and posterior thigh ulcers, including wound care consult and assessment for concomitant psoriatic component. Discussed with Dr. Adler. Infectious Disease we will continue to follow up the patient. Thank you. Plan discussed with: Patient Plan discussed with: Patient Dietary Evaluation Review Comments: 1. CCHO-60 2 gNa diet w 45g proein restriction 2. Try Devin for wound healing 3. Wt management 4. F/U with nephrology and updated lab values Expected Outcomes/Goals: Less uremic syndrome, controlled DM LAQUITA VACA RESIDENT Feb 17, 2025 13:40
--- NOTE | 2025-02-17 13:42 | DVHPN2 ---
Progress Note - Dictate Date Seen: Feb 17, 2025 Medical Necessity Reason Pt with a Central, PICC or Fol: Yes The following are medically ne: Central Line, Hook Catheter Subjective Patient is somnolent, not responsive to verbal stimuli. patient's nurse at bedside. vital signs Vital Sign Date Time Temp Pulse Resp B/P (MAP) Pulse Ox O2 Delivery O2 Flow Rate FiO2 02/17/25 13:24 115/38 02/17/25 13:00 97.3 78 14 99 207.1 02/17/25 12:00 Room Air* 0 21 Total Intake and Output 02/16/25 02/16/25 02/17/25 15:00 23:00 07:00 Intake Total 107.50 ml 0 ml 0 ml Output Total 350 ml 400 ml Balance 107.50 ml -350 ml -400 ml medications Current Medications Medications Dose Ordered Sig/Taran Route Start Time Stop Time Status Last Admin Dose Admin Ondansetron HCl 4 mg Q4HP PRN IV 01/31/25 19:30 02/14/25 07:39 4 MG Acetaminophen 650 mg Q6HP PRN PO 01/31/25 19:30 02/14/25 11:29 650 MG Nitroglycerin 0.4 mg Q5MINP PRN SL 01/31/25 19:30 Carbidopa/Levodopa 2 tab HS PO 01/31/25 22:00 02/13/25 22:41 2 TAB Acetaminophen/ Hydrocodone Bitart 1 tab Q6HPRN PRN PO 02/01/25 03:45 02/13/25 03:40 1 TAB Digoxin 125 mcg DAILY IV 02/02/25 10:00 02/17/25 07:43 125 MCG Diagnostic Test (Pha) 1 strip ACHS 02/03/25 17:00 02/17/25 11:46 1 STRIP Insulin Human Regular ACHS SC 02/03/25 17:00 Dextrose 50 ml UD PRN IV 02/03/25 16:45 02/11/25 06:54 50 ML Levothyroxine Sodium 100 mcg QAM@0600 PO 02/08/25 06:00 02/14/25 05:38 100 MCG Patient Own Medication 160 mg DAILY IV 02/09/25 10:00 UNV Patient Own Medication 1 g Q8H IV 02/08/25 12:30 UNV Enteral Nutritional Formula 240 ml TIDWM PO 02/09/25 12:00 02/14/25 09:01 240 ML Clotrimazole 1 applic DAILY TOP 02/12/25 10:00 02/17/25 07:44 1 APPLIC Patient Own Medication 1 DAILY TOP 02/12/25 10:00 02/17/25 07:44 1 Enoxaparin Sodium 40 mg BID SC 02/12/25 22:00 02/17/25 07:43 40 MG Budesonide 0.5 mg BID NEB 02/13/25 10:00 02/17/25 06:36 0.5 MG Bumetanide 2 mg TID IV 02/13/25 22:00 02/17/25 13:24 2 MG Betamethasone Dipropion Augmented 1 applic DAILY TOP 02/14/25 13:30 02/17/25 07:44 1 APPLIC Albuterol 2.5 mg Q6HR NEB 02/14/25 18:00 02/17/25 12:15 2.5 MG Norepinephrine Bitartrate 250 ml @ 3.75 mls/hr Q24H IV 02/14/25 19:00 02/14/25 19:01 3.75 MLS/HR objective Gen: Unresponsive lungs: cta anteriorly cvs: no rub ext:+ edema laboratory and microbiology Laboratory Tests 02/17/25 05:53 Test 02/17/25 05:53 Range/Units Serum Glucose 99 74-106 mg/dL Assessment/Plan Problem List/Assessment/Plan Acute kidney injury hemodynamic mediated etiology Hyponatremia in the setting of anasarca Hypokalemia AFib acute diastolic heart failure Septic Shock Horseshoe kidney history of ureteral stent Status post TAVR Hypertension History of DVT anemia w/ Iron depletion Altered mental state - patient with persistent anasarca, worsening acute kidney injury. Oxygen requirements are relatively stable. -we will continue with intermittent dosing of loop diuretic and reassess daily. -consideration for neurologic evaluation, enteral feedings -overall poor prognosis due to significant comorbidity -we will continue to follow closely from Nephrology perspective. Dietary Evaluation Review Comments: 1. CCHO-60 2 gNa diet w 45g proein restriction 2. Try Devin for wound healing 3. Wt management 4. F/U with nephrology and updated lab values Expected Outcomes/Goals: Less uremic syndrome, controlled DM Plan discussed with: LILI Lee MD Feb 17, 2025 13:42
--- NOTE | 2025-02-17 13:46 | DVHPN2 ---
Assessment/Plan Assessment/Plan progress note current e fecalis in cult, previous VRE, starting linezolid as mentation not back to baseline physical exam alert, not oriented s1 s2 rrr coarse breath sounds abdomen soft nontender anasarca assessment and plan Acute metabolic encephalopathy Septic shock due to UTI UTI Recent sepsis with a wound infection due to Pseudomonas aeruginosa MDRO Morbid obesity Bed-bound Type 2 diabetes Acute kidney injury Left hydronephrosis Horseshoe kidney Status post ureteral stent Chronic anemia Hyponatremia Atrial fibrillation Heart failure with preserved ejection fraction zerbaxa add linezolid bumex wound care midodrine pressor maintain map >65 stress dose steroid diet dvt ppx lovenox condition critical prognosis poor full code crit care time 40 minutes Plan discussed with: Other Date of Service: Feb 17, 2025 Billing Provider: SHERRILL PACHECO MD Common Visit Codes: 11204-[id number] CARE 30-74 MIN SHERRILL PACHECO MD Feb 17, 2025 13:46
[2025-02-17] MEDS ORDERED: FLUTICASONE PROP NASAL SPR 0.05 % (50MCG) 16GM EACHNOSTRI ONE (15:15)
[2025-02-17] MEDS: LINEZOLID 600MG/300ML 300 ML IV SCH (15:43)
[2025-02-17] MEDS ORDERED: FLUTICASONE PROP NASAL SPR 0.05 % (50MCG) 16GM EACHNOSTRI SCH (16:00)
[2025-02-18] VITALS (28 sets, daily range): BP systolic 82–134; BP diastolic 28–85; PULSE 67–109; RESP 12–22; TEMP 96.3–98.1; O2SAT 94–100
[2025-02-18 05:11] LABS: Chloride 102 mmol/L (98-107); Potassium 3.8 mmol/L (3.5-5.1)
[2025-02-18 05:12] LABS: Anion Gap 17 (5-15); Calcium 9.3 mg/dL (8.7-10.4); Carbon Dioxide 16 mmol/L (20-31); Sodium 135 mmol/L (136-145)
[2025-02-18 05:17] LABS: BUN/Creatinine Ratio 34.9 (10.0-20.0); Blood Urea Nitrogen 67 mg/dL (9-23); Glucose 96 mg/dL (74-106); Hematocrit 23.7 % (36.0-46.0); Hemoglobin 7.8 g/dL (12.2-16.2); Mean Corpuscular Hemoglobin 28.3 pg (28.0-32.0)
[2025-02-18 05:19] LABS: Mean Corpuscular Volume 86.2 fL (80.0-100.0)
[2025-02-18] MEDS: ALBUMIN 5% 50 ML IV ONE (07:10)
[2025-02-18] MEDS: SODIUM CHLORIDE 0.9% 500 ML IV ONE (07:10)
[2025-02-18 07:33] LABS: Total Cells Counted 100.0 (100)
--- NOTE | 2025-02-18 11:05 | DVHPN2 ---
Progress Note - Dictate Date Seen: Feb 18, 2025 Medical Necessity Reason Pt with a Central, PICC or Fol: Yes The following are medically ne: Central Line, Hook Catheter Subjective Patient is slightly more responsive today. Continues to have significant oozing from edema in upper extremities. vital signs Vital Sign Date Time Temp Pulse Resp B/P (MAP) Pulse Ox O2 Delivery O2 Flow Rate FiO2 02/18/25 10:09 85 02/18/25 10:00 16 98 Room Air* 0 21 02/18/25 08:00 96.3 114/32 (59) 96.3 Total Intake and Output 02/17/25 02/17/25 02/18/25 15:00 23:00 07:00 Intake Total 300 ml 900 ml Output Total 275 ml 300 ml Balance 25 ml 600 ml medications Current Medications Medications Dose Ordered Sig/Taran Route Start Time Stop Time Status Last Admin Dose Admin Ondansetron HCl 4 mg Q4HP PRN IV 01/31/25 19:30 02/14/25 07:39 4 MG Acetaminophen 650 mg Q6HP PRN PO 01/31/25 19:30 02/14/25 11:29 650 MG Nitroglycerin 0.4 mg Q5MINP PRN SL 01/31/25 19:30 Carbidopa/Levodopa 2 tab HS PO 01/31/25 22:00 02/13/25 22:41 2 TAB Acetaminophen/ Hydrocodone Bitart 1 tab Q6HPRN PRN PO 02/01/25 03:45 02/13/25 03:40 1 TAB Digoxin 125 mcg DAILY IV 02/02/25 10:00 02/18/25 10:09 125 MCG Diagnostic Test (Pha) 1 strip ACHS 02/03/25 17:00 02/18/25 07:32 1 STRIP Insulin Human Regular ACHS SC 02/03/25 17:00 Dextrose 50 ml UD PRN IV 02/03/25 16:45 02/11/25 06:54 50 ML Levothyroxine Sodium 100 mcg QAM@0600 PO 02/08/25 06:00 02/14/25 05:38 100 MCG Patient Own Medication 160 mg DAILY IV 02/09/25 10:00 UNV Patient Own Medication 1 g Q8H IV 02/08/25 12:30 UNV Enteral Nutritional Formula 240 ml TIDWM PO 02/09/25 12:00 02/14/25 09:01 240 ML Clotrimazole 1 applic DAILY TOP 02/12/25 10:00 02/17/25 07:44 1 APPLIC Patient Own Medication 1 DAILY TOP 02/12/25 10:00 02/17/25 07:44 1 Enoxaparin Sodium 40 mg BID SC 02/12/25 22:00 02/18/25 10:09 40 MG Budesonide 0.5 mg BID NEB 02/13/25 10:00 02/18/25 06:33 0.5 MG Betamethasone Dipropion Augmented 1 applic DAILY TOP 02/14/25 13:30 02/17/25 07:44 1 APPLIC Albuterol 2.5 mg Q6HR NEB 02/14/25 18:00 02/18/25 06:30 2.5 MG Norepinephrine Bitartrate 250 ml @ 3.75 mls/hr Q24H IV 02/14/25 19:00 02/14/25 19:01 3.75 MLS/HR Linezolid 300 ml @ 150 mls/hr Q12H IV 02/17/25 15:00 02/18/25 03:54 150 MLS/HR Fluticasone Propionate 100 mcg DAILY [facility] 02/17/25 16:00 Cancel objective Gen: Unresponsive lungs: cta anteriorly cvs: no rub ext:+ edema laboratory and microbiology Laboratory Tests 02/18/25 04:11 Test 02/18/25 04:11 Range/Units Serum Glucose 96 74-106 mg/dL Assessment/Plan Problem List/Assessment/Plan Acute kidney injury hemodynamic mediated etiology Hyponatremia in the setting of anasarca Hypokalemia AFib acute diastolic heart failure Septic Shock Horseshoe kidney history of ureteral stent Status post TAVR Hypertension History of DVT anemia w/ Iron depletion Altered mental state - trial of loop diuretic infusion, intermittent IV albumin for the next 24 hours. - we will reassess fluid management goals daily, current efforts for diuresis are to Attempt to achieve negative fluid balance to improve upper extremity edema. Dietary Evaluation Review Comments: 1. CCHO-60 2 gNa diet w 45g proein restriction 2. Try Devin for wound healing 3. Wt management 4. F/U with nephrology and updated lab values Expected Outcomes/Goals: Less uremic syndrome, controlled DM Plan discussed with: LILI Lee MD Feb 18, 2025 11:05
[2025-02-18] MEDS: ALBUMIN 25% 50 ML IV SCH (11:41)
[2025-02-18] MEDS: BUMETANIDE 2.5mg/10ml (0.25 mg/ml) INJ IV ONE (13:09)
[2025-02-18] MEDS: BUMETANIDE INJECTION 12.5 MG in GIVE UN-DILUTED 0 ML IV SCH (15:11)
--- NOTE | 2025-02-18 16:06 | DVHPN2 ---
Assessment/Plan Assessment/Plan progress note seen today, improved mental status, occasionally will speak to family. c/w linezolid. will attempt swallow bedside tomorrow for feeding, for now NPO physical exam alert, not oriented s1 s2 rrr coarse breath sounds abdomen soft nontender anasarca assessment and plan Acute metabolic encephalopathy Septic shock due to UTI UTI Recent sepsis with a wound infection due to Pseudomonas aeruginosa MDRO Morbid obesity Bed-bound Type 2 diabetes Acute kidney injury Left hydronephrosis Horseshoe kidney Status post ureteral stent Chronic anemia Hyponatremia Atrial fibrillation Heart failure with preserved ejection fraction zerbaxa add linezolid bumex per renal wound care midodrine pressor maintain map >65 stress dose steroid diet NPO dvt ppx lovenox condition critical prognosis poor full code crit care time 40 minutes Plan discussed with: Daughter, Son Date of Service: Feb 18, 2025 Billing Provider: SHERRILL PACHECO MD Common Visit Codes: [id number] CARE 30-74 MIN SHERRILL PACHECO MD Feb 18, 2025 16:06
--- NOTE | 2025-02-18 18:38 | DVHPN2 ---
Consult Progress Note Objective vital signs Vital Sign Date Time Temp Pulse Resp B/P (MAP) Pulse Ox O2 Delivery O2 Flow Rate FiO2 02/18/25 18:36 81 18 100 02/18/25 18:26 Room Air* 0 21 02/18/25 18:00 97.4 114/48 (70) 97.4 Total Intake and Output 02/17/25 02/17/25 02/18/25 14:59 22:59 06:59 Intake Total 300 ml 900 ml Output Total 275 ml 300 ml Balance 25 ml 600 ml medications Current Medications Medications Dose Ordered Sig/Taran Route Start Time Stop Time Status Last Admin Dose Admin Ondansetron HCl 4 mg Q4HP PRN IV 01/31/25 19:30 02/14/25 07:39 4 MG Acetaminophen 650 mg Q6HP PRN PO 01/31/25 19:30 02/14/25 11:29 650 MG Nitroglycerin 0.4 mg Q5MINP PRN SL 01/31/25 19:30 Carbidopa/Levodopa 2 tab HS PO 01/31/25 22:00 02/13/25 22:41 2 TAB Digoxin 125 mcg DAILY IV 02/02/25 10:00 02/18/25 10:09 125 MCG Diagnostic Test (Pha) 1 strip ACHS 02/03/25 17:00 02/18/25 16:42 1 STRIP Insulin Human Regular ACHS SC 02/03/25 17:00 Dextrose 50 ml UD PRN IV 02/03/25 16:45 02/11/25 06:54 50 ML Levothyroxine Sodium 100 mcg QAM@0600 PO 02/08/25 06:00 02/14/25 05:38 100 MCG Patient Own Medication 160 mg DAILY IV 02/09/25 10:00 UNV Patient Own Medication 1 g Q8H IV 02/08/25 12:30 UNV Enteral Nutritional Formula 240 ml TIDWM PO 02/09/25 12:00 02/14/25 09:01 240 ML Clotrimazole 1 applic DAILY TOP 02/12/25 10:00 02/18/25 10:00 1 APPLIC Patient Own Medication 1 DAILY TOP 02/12/25 10:00 02/17/25 07:44 1 Enoxaparin Sodium 40 mg BID SC 02/12/25 22:00 02/18/25 10:09 40 MG Budesonide 0.5 mg BID [facility] 02/13/25 10:00 02/18/25 18:26 0.5 MG Betamethasone Dipropion Augmented 1 applic DAILY TOP 02/14/25 13:30 02/18/25 10:00 1 APPLIC Albuterol 2.5 mg Q6HR [facility] 02/14/25 18:00 02/18/25 18:26 2.5 MG Norepinephrine Bitartrate 250 ml @ 3.75 mls/hr Q24H IV 02/14/25 19:00 02/14/25 19:01 3.75 MLS/HR Linezolid 300 ml @ 150 mls/hr Q12H IV 02/17/25 15:00 02/18/25 14:46 150 MLS/HR Fluticasone Propionate 100 mcg DAILY [facility] 02/17/25 16:00 Cancel Albumin Human 50 ml @ 100 mls/hr Q8H IV 02/18/25 11:15 02/19/25 03:44 02/18/25 11:41 100 MLS/HR Bumetanide 12.5 mg/Miscellaneous 50 ml @ 2 mls/hr Q24H IV 02/18/25 11:15 02/18/25 15:11 2 MLS/HR laboratory and microbiology Laboratory Tests 02/18/25 04:11 Test 02/18/25 04:11 Range/Units Serum Glucose 96 74-106 mg/dL Problem List/Assessment/Plan Problem List/Assessment/Plan very low suspicion for ongoing infection - patient has NO evidence of active infection, (sacral wound has been inspected multiple times, weeping is noted, patient hx of enterococcus colonization and MDRO pseudomonas colonization, these are being covered by Zerbaxa) continue Zerbaxa for now out of abundance of precaution check lactic acid level suspect leukocytosis is due to hydrocortisone use if concerned for infection, please stop IV iron use, which can excacerbate infections, defer to primary service on discontinuation and overall suspicion for ongoing has been and continues to be low continue to recommend to not overdiurese patient, patient has evidence of intravascular depletion, resulting in naseem and hypotension. albumin as needed , defer to primary team if there are questions regarding patient's infection status please do not hesitate to call me Authorized and Performed by: funmi mclaughlin Total critical care time: Approximately 76 minutes Due to a high probability of clinically significant, life threatening deterioration, the patient required my highest level of preparedness to intervene emergently and I personally spent this critical care time directly and personally managing the patient. This critical care time included obtaining a history; examining the patient; pulse oximetry; ordering and review of studies; arranging urgent treatment with development of a management plan; evaluation of patient's response to treatment; frequent reassessment; and, discussions with other providers. This critical care time was performed to assess and manage the high probability of imminent, life-threatening deterioration that could result in multi-organ failure. It was exclusive of separately billable procedures and treating other patients and teaching time. Dietary Evaluation Review Comments: 1. CCHO-60 2 gNa diet w 45g proein restriction 2. Try Devin for wound healing 3. Wt management 4. F/U with nephrology and updated lab values Expected Outcomes/Goals: Less uremic syndrome, controlled DM FUNMI MCLAUGHLIN MD Feb 18, 2025 18:38
--- NOTE | 2025-02-18 18:41 | DVHPN2 ---
Consult Progress Note Objective vital signs Vital Sign Date Time Temp Pulse Resp B/P (MAP) Pulse Ox O2 Delivery O2 Flow Rate FiO2 02/18/25 18:36 81 18 100 02/18/25 18:26 Room Air* 0 21 02/18/25 18:00 97.4 114/48 (70) 97.4 Total Intake and Output 02/17/25 02/17/25 02/18/25 14:59 22:59 06:59 Intake Total 300 ml 900 ml Output Total 275 ml 300 ml Balance 25 ml 600 ml medications Current Medications Medications Dose Ordered Sig/Taran Route Start Time Stop Time Status Last Admin Dose Admin Ondansetron HCl 4 mg Q4HP PRN IV 01/31/25 19:30 02/14/25 07:39 4 MG Acetaminophen 650 mg Q6HP PRN PO 01/31/25 19:30 02/14/25 11:29 650 MG Nitroglycerin 0.4 mg Q5MINP PRN SL 01/31/25 19:30 Carbidopa/Levodopa 2 tab HS PO 01/31/25 22:00 02/13/25 22:41 2 TAB Digoxin 125 mcg DAILY IV 02/02/25 10:00 02/18/25 10:09 125 MCG Diagnostic Test (Pha) 1 strip ACHS 02/03/25 17:00 02/18/25 16:42 1 STRIP Insulin Human Regular ACHS SC 02/03/25 17:00 Dextrose 50 ml UD PRN IV 02/03/25 16:45 02/11/25 06:54 50 ML Levothyroxine Sodium 100 mcg QAM@0600 PO 02/08/25 06:00 02/14/25 05:38 100 MCG Patient Own Medication 160 mg DAILY IV 02/09/25 10:00 UNV Patient Own Medication 1 g Q8H IV 02/08/25 12:30 UNV Enteral Nutritional Formula 240 ml TIDWM PO 02/09/25 12:00 02/14/25 09:01 240 ML Clotrimazole 1 applic DAILY TOP 02/12/25 10:00 02/18/25 10:00 1 APPLIC Patient Own Medication 1 DAILY TOP 02/12/25 10:00 02/17/25 07:44 1 Enoxaparin Sodium 40 mg BID SC 02/12/25 22:00 02/18/25 10:09 40 MG Budesonide 0.5 mg BID [facility] 02/13/25 10:00 02/18/25 18:26 0.5 MG Betamethasone Dipropion Augmented 1 applic DAILY TOP 02/14/25 13:30 02/18/25 10:00 1 APPLIC Albuterol 2.5 mg Q6HR [facility] 02/14/25 18:00 02/18/25 18:26 2.5 MG Norepinephrine Bitartrate 250 ml @ 3.75 mls/hr Q24H IV 02/14/25 19:00 02/14/25 19:01 3.75 MLS/HR Linezolid 300 ml @ 150 mls/hr Q12H IV 02/17/25 15:00 02/18/25 14:46 150 MLS/HR Fluticasone Propionate 100 mcg DAILY [facility] 02/17/25 16:00 Cancel Albumin Human 50 ml @ 100 mls/hr Q8H IV 02/18/25 11:15 02/19/25 03:44 02/18/25 11:41 100 MLS/HR Bumetanide 12.5 mg/Miscellaneous 50 ml @ 2 mls/hr Q24H IV 02/18/25 11:15 02/18/25 15:11 2 MLS/HR laboratory and microbiology Laboratory Tests 02/18/25 04:11 Test 02/18/25 04:11 Range/Units Serum Glucose 96 74-106 mg/dL Problem List/Assessment/Plan Problem List/Assessment/Plan linezolid started for enterococcus in urine - if concerned for entercoccus infection, recommend sargent exchange. no indication for linezolid at the time off zerbaxa and leukocytosis is resolving as hydrocortisone is downtitrated suspect leukocytosis is due to hydrocortisone use if concerned for infection, please stop IV iron use, which can excacerbate infections, defer to primary service on discontinuation and overall suspicion for ongoing infection has been and continues to be low restarted on bumex ggt, continue to recommend to not overdiurese patient, p atient has evidence of intravascular depletion, resulting in naseem and hypotension. albumin as needed , defer to primary team if there are questions regarding patient's infection status please do not hesitate to call me Authorized and Performed by: funmi mclaughlin Total critical care time: Approximately 76 minutes Due to a high probability of clinically significant, life threatening deterioration, the patient required my highest level of preparedness to intervene emergently and I personally spent this critical care time directly and personally managing the patient. This critical care time included obtaining a history; examining the patient; pulse oximetry; ordering and review of studies; arranging urgent treatment with development of a management plan; evaluation of patient's response to treatment; frequent reassessment; and, discussions with other providers. This critical care time was performed to assess and manage the high probability of imminent, life-threatening deterioration that could result in multi-organ failure. It was exclusive of separately billable procedures and treating other patients and teaching time. Dietary Evaluation Review Comments: 1. CCHO-60 2 gNa diet w 45g proein restriction 2. Try Devin for wound healing 3. Wt management 4. F/U with nephrology and updated lab values Expected Outcomes/Goals: Less uremic syndrome, controlled DM FUNMI MCLAUGHLIN MD Feb 18, 2025 18:41
--- NOTE | 2025-02-18 19:56 | DVHPN2 ---
[facility] DOS: 02/16/25 Patient seen and examined at bedside. Breathing on room air. Overnight events reviewed. HPI: An 79-year-old woman with PMHx of CHF, chronic kidney disease, diabetes mellitus, hypertension, AFib, thyroid disease and anemia who presented to ED on 02/01/25 for evaluation of altered mental status. Patient was recently discharged after being treated for sepsis. Patient was acting lethargic and altered on day prior to presentation, therefore family brought her in for further evaluation. Patient was lethargic, oriented times two on day of presentation. No unilateral weakness noted or slurred speech. No cardiac or respiratory symptoms. Patient was admitted for further care. Pulmonary consultation is requested for evaluation and management d/t pleural effusions. Past Medical History CHF, chronic kidney disease, diabetes mellitus, hypertension, thyroid, anemia, AFib Past Surgical History Tonsillectomy Family History Noncontributory Social History No smoking, alcohol or illicit drug use. Medications: Reviewed. Allergies: Penicillins (Unverified Allergy, Severe, 03/16/15) Sulfa Antibiotics (Unverified Allergy, Severe, 03/16/15) Morphine (Verified Allergy, Intermediate, ALTERED, 01/31/18) Ceftriaxone (Verified Allergy, Unknown, 01/31/18) Reviewed: Care Plan, H&P, Labs, Medications, Previous Orders, Radiology Changes from previous H/P or p: No Changes Objective Vitals Vital Signs Date Time Temp Pulse Resp B/P (MAP) Pulse Ox O2 Delivery O2 Flow Rate FiO2 02/18/25 18:36 81 18 100 02/18/25 18:26 Room Air* 0 21 02/18/25 18:00 97.4 114/48 (70) 97.4 Intake/Output Intake and Output 02/18/25 07:00 Intake Total 1200 ml Output Total 575 ml Balance 625 ml Intake Oral 0 ml IV Total 1200 ml Output Urine Total 575 ml General Appearance: Alert, Other (Disoriented) HEENT: Atraumatic, PERRLA, EOMI Lungs: Clear to auscultation, Other (Decreased air movement bilaterally. No wheezing. No rhonchi) Cardiovascular: Regular rate, Normal S1, Normal S2 Abdomen: Normal bowel sounds, Soft, No tenderness Musculoskeletal: Normal sensory function, Normal motor function Extremities: Other (2+ edema bilaterally in the lower extremities) Neuro: Strength at 5/5 X4 ext, Cranial nerves 3-12 NL Skin: Significant Lesion, Dry, Intact, Warm Psych/Mental Status: Mental status NL, Mood NL Medications Current Medications Medications Dose Ordered Sig/Taran Route Start Time Stop Time Status Last Admin Dose Admin Ondansetron HCl 4 mg Q4HP PRN IV 01/31/25 19:30 02/14/25 07:39 4 MG Acetaminophen 650 mg Q6HP PRN PO 01/31/25 19:30 02/14/25 11:29 650 MG Nitroglycerin 0.4 mg Q5MINP PRN SL 01/31/25 19:30 Carbidopa/Levodopa 2 tab HS PO 01/31/25 22:00 02/13/25 22:41 2 TAB Digoxin 125 mcg DAILY IV 02/02/25 10:00 02/18/25 10:09 125 MCG Diagnostic Test (Pha) 1 strip ACHS 02/03/25 17:00 02/18/25 16:42 1 STRIP Insulin Human Regular ACHS SC 02/03/25 17:00 Dextrose 50 ml UD PRN IV 02/03/25 16:45 02/11/25 06:54 50 ML Levothyroxine Sodium 100 mcg QAM@0600 PO 02/08/25 06:00 02/14/25 05:38 100 MCG Patient Own Medication 160 mg DAILY IV 02/09/25 10:00 UNV Patient Own Medication 1 g Q8H IV 02/08/25 12:30 UNV Enteral Nutritional Formula 240 ml TIDWM PO 02/09/25 12:00 02/14/25 09:01 240 ML Clotrimazole 1 applic DAILY TOP 02/12/25 10:00 02/18/25 10:00 1 APPLIC Patient Own Medication 1 DAILY TOP 02/12/25 10:00 02/17/25 07:44 1 Enoxaparin Sodium 40 mg BID SC 02/12/25 22:00 02/18/25 10:09 40 MG Budesonide 0.5 mg BID NEB 02/13/25 10:00 02/18/25 18:26 0.5 MG Betamethasone Dipropion Augmented 1 applic DAILY TOP 02/14/25 13:30 02/18/25 10:00 1 APPLIC Albuterol 2.5 mg Q6HR NEB 02/14/25 18:00 02/18/25 18:26 2.5 MG Norepinephrine Bitartrate 250 ml @ 3.75 mls/hr Q24H IV 02/14/25 19:00 02/14/25 19:01 3.75 MLS/HR Linezolid 300 ml @ 150 mls/hr Q12H IV 02/17/25 15:00 02/18/25 14:46 150 MLS/HR Fluticasone Propionate 100 mcg DAILY EACHNOSTRI 02/17/25 16:00 Cancel Albumin Human 50 ml @ 100 mls/hr Q8H IV 02/18/25 11:15 02/19/25 03:44 02/18/25 19:31 100 MLS/HR Bumetanide 12.5 mg/Miscellaneous 50 ml @ 2 mls/hr Q24H IV 02/18/25 11:15 02/18/25 15:11 2 MLS/HR Laboratory Results Laboratory Tests 02/18/25 04:11 Chemistry Test 02/18/25 04:11 Calcium Level 9.3 mg/dL (8.7-10.4) Urinalysis Test 01/31/25 16:30 02/08/25 11:45 Urine Hyaline Casts Few /lpf (0 - 2) Urine Mucus Few (None Seen) Urine Color Yellow (Yellow) Urine Clarity Cloudy (Clear) H Urine pH 5.5 (5.0-9.0) Urine Specific [place] 1.013 (1.001-1.035) Urine Protein 1+ (Negative) H Urine Ketones Negative (Negative) Urine Blood 1+ /uL (Negative) H Urine Nitrite Negative (Negative) Urine Bilirubin Negative (Negative) Urine Urobilinogen Normal mg/dL (Negative) Urine Leukocyte Esterase 3+ /uL (Negative) Urine RBC 110 /hpf (0 - 4) Urine WBC Clumps Present /hpf (None Seen) Urine Microscopic WBC 1269 /HPF (0-5) H Urine Squamous Epithelial Cells Few /hpf (<5) Urine Bacteria Few /hpf (None Seen) H Urine Yeast (Budding) Loaded /hpf (None Seen) Urine Glucose Normal mg/dL (Normal) Microbiology Microbiology Date/Time Source Procedure Growth Status 02/08/25 22:15 Urine - Hook Port Urine Culture - Final Enterococcus faecalis Complete 02/08/25 20:11 Blood Blood Culture - Final NO GROWTH AFTER 5 DAYS OF INCUBATION. Complete 02/03/25 00:50 Nose MRSA Screen - Final Complete Assessment/Plan Assessment/Plan Impression: Acute metabolic encephalopathy Septic shock due to UTI Morbid obesity, BMI 42.3 Snoring, likely ARPAN Urinary tract infection Congestive heart failure (HFpEF) Hyponatremia Pleural effusions Atelectasis Events: Breathing on room air Supplemental oxygen PRN Patient underwent femoral central line placement for administration of pressors as unable to place IJ or SCV line - unable to thread line. See separate procedure note for details. Head CT negative for ICH or stroke. Neurology recs appreciated. Continue bronchodilators Continue Pulmicort Continue antibiotics Follow up ID recommendations On stress dose steroids - hydrocortisone 50 mg IVP q.6 hours. Taper as tolerated. Incentive spirometry Pressors for hemodynamic support On Levophed 2 mcg/min Titrate to keep mean arterial pressure greater than 65 mmHg. Improved pressor requirements - taper as tolerated Blood pressure remains labile HOB elevation Aspiration precautions. On Florinef. Monitor hemoglobin Continue IV iron supplementation Continue Bumex drip for diuresis Monitor renal function Monitor electrolytes. Supplement as necessary. Nephrology recommendations appreciated. Continue Lovenox BID for DVT ppx. Labs and imaging reviewed. Rest of plan as noted below. Plan: Supplemental oxygen PRN Titrate to keep O2 sats above 92%. Bronchodilators PRN. Continue antibiotics Incentive spirometry Pressors as necessary for hemodynamic support Titrate to keep mean arterial pressure greater than 65 mmHg. Follow up Cardiology recs Diurese to euvolemia Monitor renal function. Monitor electrolytes. Supplement as necessary. Monitor sodium Monitor ins and outs. DVT prophylaxis - Lovenox. Prognosis: Poor given patient's multiple co-morbidities. Condition: Critical Rest of plan per hospitalist and other consultants. A total of 35 minutes of critical care time was spent reviewing the patient record, examining the patient, making a diagnostic and therapeutic plan, discussing this plan with the medical personnel, following up on diagnostic studies and following the patient for clinical stability excluding any and all procedures. At least 50% of this time was spent in direct, [id number] contact. Thank you, Dr. Castaneda, for allowing me to participate in this patient's care. Further recommendations will depend on the patient's clinical course. Please do not hesitate to contact me if you have any questions or concerns. This medical document was created using an electronic medical record system with Dragon computerized dictation system. Although these documentations are being carefully reviewed, there may still be some phonetic and typographical changes. The errors are purely typographical, due to imperfection on the software program, and do not reflect any compromise in the patient's medical care. Plan discussed with: Patient, Other (RN Amanda) Date of Service: Feb 16, 2025 Billing Provider: BENITO WILLARD MD Common Visit Codes: [id number] INP/OBS CARE(HIGH), 82529-[id number] CARE 30-74 MIN BENITO WILLARD MD Feb 18, 2025 19:55
--- NOTE | 2025-02-18 22:33 | DVHPN2 ---
[facility] DOS: 02/17/25 Patient seen and examined at bedside. Breathing on room air. Overnight events reviewed. HPI: An 79-year-old woman with PMHx of CHF, chronic kidney disease, diabetes mellitus, hypertension, AFib, thyroid disease and anemia who presented to ED on 02/01/25 for evaluation of altered mental status. Patient was recently discharged after being treated for sepsis. Patient was acting lethargic and altered on day prior to presentation, therefore family brought her in for further evaluation. Patient was lethargic, oriented times two on day of presentation. No unilateral weakness noted or slurred speech. No cardiac or respiratory symptoms. Patient was admitted for further care. Pulmonary consultation is requested for evaluation and management d/t pleural effusions. Past Medical History CHF, chronic kidney disease, diabetes mellitus, hypertension, thyroid, anemia, AFib Past Surgical History Tonsillectomy Family History Noncontributory Social History No smoking, alcohol or illicit drug use. Medications: Reviewed. Allergies: Penicillins (Unverified Allergy, Severe, 03/16/15) Sulfa Antibiotics (Unverified Allergy, Severe, 03/16/15) Morphine (Verified Allergy, Intermediate, ALTERED, 01/31/18) Ceftriaxone (Verified Allergy, Unknown, 01/31/18) Reviewed: Care Plan, H&P, Labs, Medications, Previous Orders, Radiology Changes from previous H/P or p: No Changes Objective Vitals Vital Signs Date Time Temp Pulse Resp B/P (MAP) Pulse Ox O2 Delivery O2 Flow Rate FiO2 02/18/25 22:00 78 02/18/25 22:00 16 100 Room Air* 0 21 02/18/25 20:00 98.1 108/45 (66) 98.1 Intake/Output Intake and Output 02/18/25 07:00 Intake Total 1200 ml Output Total 575 ml Balance 625 ml Intake Oral 0 ml IV Total 1200 ml Output Urine Total 575 ml General Appearance: Alert, Other (Disoriented) HEENT: Atraumatic, PERRLA, EOMI Lungs: Clear to auscultation, Other (Decreased air movement bilaterally. No wheezing. No rhonchi) Cardiovascular: Regular rate, Normal S1, Normal S2 Abdomen: Normal bowel sounds, Soft, No tenderness Musculoskeletal: Normal sensory function, Normal motor function Extremities: Other (2+ edema bilaterally in the lower extremities) Neuro: Strength at 5/5 X4 ext, Cranial nerves 3-12 NL Skin: Significant Lesion, Dry, Intact, Warm Psych/Mental Status: Mental status NL, Mood NL Medications Current Medications Medications Dose Ordered Sig/Taran Route Start Time Stop Time Status Last Admin Dose Admin Ondansetron HCl 4 mg Q4HP PRN IV 01/31/25 19:30 02/14/25 07:39 4 MG Acetaminophen 650 mg Q6HP PRN PO 01/31/25 19:30 02/14/25 11:29 650 MG Nitroglycerin 0.4 mg Q5MINP PRN SL 01/31/25 19:30 Carbidopa/Levodopa 2 tab HS PO 01/31/25 22:00 02/13/25 22:41 2 TAB Digoxin 125 mcg DAILY IV 02/02/25 10:00 02/18/25 10:09 125 MCG Diagnostic Test (Pha) 1 strip ACHS 02/03/25 17:00 02/18/25 22:08 1 STRIP Insulin Human Regular ACHS SC 02/03/25 17:00 Dextrose 50 ml UD PRN IV 02/03/25 16:45 02/11/25 06:54 50 ML Levothyroxine Sodium 100 mcg QAM@0600 PO 02/08/25 06:00 02/14/25 05:38 100 MCG Patient Own Medication 160 mg DAILY IV 02/09/25 10:00 UNV Patient Own Medication 1 g Q8H IV 02/08/25 12:30 UNV Enteral Nutritional Formula 240 ml TIDWM PO 02/09/25 12:00 02/14/25 09:01 240 ML Clotrimazole 1 applic DAILY TOP 02/12/25 10:00 02/18/25 10:00 1 APPLIC Patient Own Medication 1 DAILY TOP 02/12/25 10:00 02/17/25 07:44 1 Enoxaparin Sodium 40 mg BID SC 02/12/25 22:00 02/18/25 22:07 40 MG Budesonide 0.5 mg BID NEB 02/13/25 10:00 02/18/25 18:26 0.5 MG Betamethasone Dipropion Augmented 1 applic DAILY TOP 02/14/25 13:30 02/18/25 10:00 1 APPLIC Albuterol 2.5 mg Q6HR NEB 02/14/25 18:00 02/18/25 18:26 2.5 MG Norepinephrine Bitartrate 250 ml @ 3.75 mls/hr Q24H IV 02/14/25 19:00 02/14/25 19:01 3.75 MLS/HR Linezolid 300 ml @ 150 mls/hr Q12H IV 02/17/25 15:00 02/18/25 14:46 150 MLS/HR Fluticasone Propionate 100 mcg DAILY EACHNOSTRI 02/17/25 16:00 Cancel Albumin Human 50 ml @ 100 mls/hr Q8H IV 02/18/25 11:15 02/19/25 03:44 02/18/25 19:31 100 MLS/HR Bumetanide 12.5 mg/Miscellaneous 50 ml @ 2 mls/hr Q24H IV 02/18/25 11:15 02/18/25 15:11 2 MLS/HR Laboratory Results Laboratory Tests 02/18/25 04:11 Chemistry Test 02/18/25 04:11 Calcium Level 9.3 mg/dL (8.7-10.4) Urinalysis Test 01/31/25 16:30 02/08/25 11:45 Urine Hyaline Casts Few /lpf (0 - 2) Urine Mucus Few (None Seen) Urine Color Yellow (Yellow) Urine Clarity Cloudy (Clear) H Urine pH 5.5 (5.0-9.0) Urine Specific [place] 1.013 (1.001-1.035) Urine Protein 1+ (Negative) H Urine Ketones Negative (Negative) Urine Blood 1+ /uL (Negative) H Urine Nitrite Negative (Negative) Urine Bilirubin Negative (Negative) Urine Urobilinogen Normal mg/dL (Negative) Urine Leukocyte Esterase 3+ /uL (Negative) Urine RBC 110 /hpf (0 - 4) Urine WBC Clumps Present /hpf (None Seen) Urine Microscopic WBC 1269 /HPF (0-5) H Urine Squamous Epithelial Cells Few /hpf (<5) Urine Bacteria Few /hpf (None Seen) H Urine Yeast (Budding) Loaded /hpf (None Seen) Urine Glucose Normal mg/dL (Normal) Microbiology Microbiology Date/Time Source Procedure Growth Status 02/08/25 22:15 Urine - Hook Port Urine Culture - Final Enterococcus faecalis Complete 02/08/25 20:11 Blood Blood Culture - Final NO GROWTH AFTER 5 DAYS OF INCUBATION. Complete 02/03/25 00:50 Nose MRSA Screen - Final Complete Assessment/Plan Assessment/Plan Impression: Acute metabolic encephalopathy Septic shock due to UTI Morbid obesity, BMI 42.3 Snoring, likely ARPAN Urinary tract infection Congestive heart failure (HFpEF) Hyponatremia Pleural effusions Atelectasis Events: Breathing on room air Supplemental oxygen PRN ABG reviewed, shows alkalemia d/t respiratory alkalosis Continue bronchodilators Continue Pulmicort Continue antibiotics Follow up ID recommendations On stress dose steroids - hydrocortisone 50 mg IVP q.6 hours. Taper as tolerated. Incentive spirometry Pressors for hemodynamic support On Levophed 2 mcg/min Titrate to keep mean arterial pressure greater than 65 mmHg. Improved pressor requirements - taper as tolerated Blood pressure remains labile HOB elevation Aspiration precautions. On Florinef. Monitor hemoglobin Continue IV iron supplementation Continue Bumex drip for diuresis Monitor renal function Monitor electrolytes. Supplement as necessary. Nephrology recommendations appreciated. Continue Lovenox BID for DVT ppx. Head CT negative for ICH or stroke. Neurology recs appreciated. Labs and imaging reviewed. Rest of plan as noted below. Plan: Supplemental oxygen PRN Titrate to keep O2 sats above 92%. Patient underwent femoral central line placement for administration of pressors as unable to place IJ or SCV line - unable to thread line. See separate procedure note for details. Bronchodilators PRN. Continue antibiotics Incentive spirometry Pressors as necessary for hemodynamic support Titrate to keep mean arterial pressure greater than 65 mmHg. Follow up Cardiology recs Diurese to euvolemia Monitor renal function. Monitor electrolytes. Supplement as necessary. Monitor sodium Monitor ins and outs. DVT prophylaxis - Lovenox. Prognosis: Poor given patient's multiple co-morbidities. Condition: Critical Rest of plan per hospitalist and other consultants. A total of 35 minutes of critical care time was spent reviewing the patient record, examining the patient, making a diagnostic and therapeutic plan, discussing this plan with the medical personnel, following up on diagnostic studies and following the patient for clinical stability excluding any and all procedures. At least 50% of this time was spent in direct, [id number] contact. Thank you, Dr. Castaneda, for allowing me to participate in this patient's care. Further recommendations will depend on the patient's clinical course. Please do not hesitate to contact me if you have any questions or concerns. This medical document was created using an electronic medical record system with [employer] [place] dictation system. Although these documentations are being carefully reviewed, there may still be some phonetic and typographical changes. The errors are purely typographical, due to imperfection on the software program, and do not reflect any compromise in the patient's medical care. Plan discussed with: Patient, Other (RN) Date of Service: Feb 17, 2025 Billing Provider: BENITO WILLARD MD Common Visit Codes: [id number] INP/OBS CARE(HIGH), [id number] CARE 30-74 MIN BENITO WILLARD MD Feb 18, 2025 22:33
--- NOTE | 2025-02-18 23:20 | DVHPN2 ---
[facility] DOS: 02/18/25 Patient seen and examined at bedside. Breathing on room air. Overnight events reviewed. HPI: An 79-year-old woman with PMHx of CHF, chronic kidney disease, diabetes mellitus, hypertension, AFib, thyroid disease and anemia who presented to ED on 02/01/25 for evaluation of altered mental status. Patient was recently discharged after being treated for sepsis. Patient was acting lethargic and altered on day prior to presentation, therefore family brought her in for further evaluation. Patient was lethargic, oriented times two on day of presentation. No unilateral weakness noted or slurred speech. No cardiac or respiratory symptoms. Patient was admitted for further care. Pulmonary consultation is requested for evaluation and management d/t pleural effusions. Past Medical History CHF, chronic kidney disease, diabetes mellitus, hypertension, thyroid, anemia, AFib Past Surgical History Tonsillectomy Family History Noncontributory Social History No smoking, alcohol or illicit drug use. Medications: Reviewed. Allergies: Penicillins (Unverified Allergy, Severe, 03/16/15) Sulfa Antibiotics (Unverified Allergy, Severe, 03/16/15) Morphine (Verified Allergy, Intermediate, ALTERED, 01/31/18) Ceftriaxone (Verified Allergy, Unknown, 01/31/18) Reviewed: Care Plan, H&P, Labs, Medications, Previous Orders, Radiology Changes from previous H/P or p: No Changes Objective Vitals Vital Signs Date Time Temp Pulse Resp B/P (MAP) Pulse Ox O2 Delivery O2 Flow Rate FiO2 02/18/25 22:19 97.7 86 15 108/37 (60) 99 97.7 02/18/25 22:00 Room Air* 0 21 Intake/Output Intake and Output 02/18/25 07:00 Intake Total 1200 ml Output Total 575 ml Balance 625 ml Intake Oral 0 ml IV Total 1200 ml Output Urine Total 575 ml General Appearance: Alert, Other (Disoriented) HEENT: Atraumatic, PERRLA, EOMI Lungs: Clear to auscultation, Other (Decreased air movement bilaterally. No wheezing. No rhonchi) Cardiovascular: Regular rate, Normal S1, Normal S2 Abdomen: Normal bowel sounds, Soft, No tenderness Musculoskeletal: Normal sensory function, Normal motor function Extremities: Other (2+ edema bilaterally in the lower extremities) Neuro: Strength at 5/5 X4 ext, Cranial nerves 3-12 NL Skin: Significant Lesion, Dry, Intact, Warm Psych/Mental Status: Mental status NL, Mood NL Medications Current Medications Medications Dose Ordered Sig/Taran Route Start Time Stop Time Status Last Admin Dose Admin Ondansetron HCl 4 mg Q4HP PRN IV 01/31/25 19:30 02/14/25 07:39 4 MG Acetaminophen 650 mg Q6HP PRN PO 01/31/25 19:30 02/14/25 11:29 650 MG Nitroglycerin 0.4 mg Q5MINP PRN SL 01/31/25 19:30 Carbidopa/Levodopa 2 tab HS PO 01/31/25 22:00 02/13/25 22:41 2 TAB Digoxin 125 mcg DAILY IV 02/02/25 10:00 02/18/25 10:09 125 MCG Diagnostic Test (Pha) 1 strip ACHS 02/03/25 17:00 02/18/25 22:08 1 STRIP Insulin Human Regular ACHS SC 02/03/25 17:00 Dextrose 50 ml UD PRN IV 02/03/25 16:45 02/11/25 06:54 50 ML Levothyroxine Sodium 100 mcg QAM@0600 PO 02/08/25 06:00 02/14/25 05:38 100 MCG Patient Own Medication 160 mg DAILY IV 02/09/25 10:00 UNV Patient Own Medication 1 g Q8H IV 02/08/25 12:30 UNV Enteral Nutritional Formula 240 ml TIDWM PO 02/09/25 12:00 02/14/25 09:01 240 ML Clotrimazole 1 applic DAILY TOP 02/12/25 10:00 02/18/25 10:00 1 APPLIC Patient Own Medication 1 DAILY TOP 02/12/25 10:00 02/17/25 07:44 1 Enoxaparin Sodium 40 mg BID SC 02/12/25 22:00 02/18/25 22:07 40 MG Budesonide 0.5 mg BID NEB 02/13/25 10:00 02/18/25 18:26 0.5 MG Betamethasone Dipropion Augmented 1 applic DAILY TOP 02/14/25 13:30 02/18/25 10:00 1 APPLIC Albuterol 2.5 mg Q6HR NEB 02/14/25 18:00 02/18/25 18:26 2.5 MG Norepinephrine Bitartrate 250 ml @ 3.75 mls/hr Q24H IV 02/14/25 19:00 02/14/25 19:01 3.75 MLS/HR Linezolid 300 ml @ 150 mls/hr Q12H IV 02/17/25 15:00 02/18/25 14:46 150 MLS/HR Fluticasone Propionate 100 mcg DAILY EACHNOSTRI 02/17/25 16:00 Cancel Albumin Human 50 ml @ 100 mls/hr Q8H IV 02/18/25 11:15 02/19/25 03:44 02/18/25 19:31 100 MLS/HR Bumetanide 12.5 mg/Miscellaneous 50 ml @ 2 mls/hr Q24H IV 02/18/25 11:15 02/18/25 15:11 2 MLS/HR Laboratory Results Laboratory Tests 02/18/25 04:11 Chemistry Test 02/18/25 04:11 Calcium Level 9.3 mg/dL (8.7-10.4) Urinalysis Test 01/31/25 16:30 02/08/25 11:45 Urine Hyaline Casts Few /lpf (0 - 2) Urine Mucus Few (None Seen) Urine Color Yellow (Yellow) Urine Clarity Cloudy (Clear) H Urine pH 5.5 (5.0-9.0) Urine Specific [place] 1.013 (1.001-1.035) Urine Protein 1+ (Negative) H Urine Ketones Negative (Negative) Urine Blood 1+ /uL (Negative) H Urine Nitrite Negative (Negative) Urine Bilirubin Negative (Negative) Urine Urobilinogen Normal mg/dL (Negative) Urine Leukocyte Esterase 3+ /uL (Negative) Urine RBC 110 /hpf (0 - 4) Urine WBC Clumps Present /hpf (None Seen) Urine Microscopic WBC 1269 /HPF (0-5) H Urine Squamous Epithelial Cells Few /hpf (<5) Urine Bacteria Few /hpf (None Seen) H Urine Yeast (Budding) Loaded /hpf (None Seen) Urine Glucose Normal mg/dL (Normal) Microbiology Microbiology Date/Time Source Procedure Growth Status 02/08/25 22:15 Urine - Hook Port Urine Culture - Final Enterococcus faecalis Complete 02/08/25 20:11 Blood Blood Culture - Final NO GROWTH AFTER 5 DAYS OF INCUBATION. Complete 02/03/25 00:50 Nose MRSA Screen - Final Complete Assessment/Plan Assessment/Plan Impression: Acute metabolic encephalopathy Septic shock due to UTI Morbid obesity, BMI 42.3 Snoring, likely ARPAN Urinary tract infection Congestive heart failure (HFpEF) Hyponatremia Pleural effusions Atelectasis Events: Breathing on room air Supplemental oxygen PRN Continue bronchodilators Continue Pulmicort Continue antibiotics ID recommendations appreciated Incentive spirometry On albumin On Florinef. Off pressors, hemodynamically stable Monitor blood pressure HOB elevation Aspiration precautions. Monitor hemoglobin Continue IV iron supplementation Continue Bumex drip for diuresis Monitor renal function Monitor electrolytes. Supplement as necessary. Nephrology recommendations appreciated. Continue Lovenox BID for DVT ppx. Head CT negative for ICH or stroke. Neurology recs appreciated. Labs and imaging reviewed. Rest of plan as noted below. Plan: Supplemental oxygen PRN Titrate to keep O2 sats above 92%. Patient underwent femoral central line placement for administration of pressors as unable to place IJ or SCV line - unable to thread line. See separate procedure note for details. Bronchodilators PRN. Continue antibiotics Incentive spirometry Pressors as necessary for hemodynamic support Titrate to keep mean arterial pressure greater than 65 mmHg. Follow up Cardiology recs Diurese to euvolemia Monitor renal function. Monitor electrolytes. Supplement as necessary. Monitor sodium Monitor ins and outs. DVT prophylaxis - Lovenox. Prognosis: Poor given patient's multiple co-morbidities. Rest of plan per hospitalist and other consultants. Thank you, Dr. Castaneda, for allowing me to participate in this patient's care. Further recommendations will depend on the patient's clinical course. Please do not hesitate to contact me if you have any questions or concerns. This medical document was created using an electronic medical record system with [employer] dictation system. Although these documentations are being carefully reviewed, there may still be some phonetic and typographical changes. The errors are purely typographical, due to imperfection on the software program, and do not reflect any compromise in the patient's medical care. Plan discussed with: Patient, Other (FABIO Robles) Date of Service: Feb 18, 2025 Billing Provider: BENITO WILLARD MD Common Visit Codes: [id number] INP/OBS CARE(HIGH) BENITO WILLARD MD Feb 18, 2025 23:20
[2025-02-19] VITALS (39 sets, daily range): BP systolic 86–143; BP diastolic 32–59; PULSE 68–86; RESP 13–25; TEMP 96.7–98.8; O2SAT 96–100
[2025-02-19 06:27] LABS: Alkaline Phosphatase 73 U/L (46-116); Anion Gap 15 (5-15); BUN/Creatinine Ratio 33.5 (10.0-20.0); Calcium 9.0 mg/dL (8.7-10.4); Chloride 102 mmol/L (98-107); Magnesium 2.2 mg/dL (1.6-2.6); Potassium 3.7 mmol/L (3.5-5.1)
[2025-02-19 06:28] LABS: Alanine Aminotransferase < 9 U/L (7-40); Albumin 2.9 g/dL (3.2-4.8); Blood Urea Nitrogen 69 mg/dL (9-23); Carbon Dioxide 18 mmol/L (20-31); Glucose 115 mg/dL (74-106); Sodium 135 mmol/L (136-145); Total Protein 4.5 g/dL (5.7-8.2)
[2025-02-19 06:29] LABS: Bilirubin, Total 0.3 mg/dL (0.2-1.0)
[2025-02-19] MEDS: ALBUTEROL SULF 2.5 MG/0.5ML(0.5%) NEB SOLN ONE (06:47)
[2025-02-19] MEDS: BUDESONIDE (INHALATION) 0.5 MG/2 ML NEB ONE (06:47)
[2025-02-19 07:26] LABS: Hematocrit 19.3 % (36.0-46.0); Mean Corpuscular Hemoglobin 28.2 pg (28.0-32.0); Mean Corpuscular Volume 85.7 fL (80.0-100.0)
[2025-02-19 07:36] LABS: Nucleated Red Blood Cells % 5.4 %
[2025-02-19 07:38] LABS: Hemoglobin 6.4 g/dL (12.2-16.2)
[2025-02-19 08:44] LABS: Alkaline Phosphatase 74 U/L (46-116); Anion Gap 15 (5-15); BUN/Creatinine Ratio 37.0 (10.0-20.0); Calcium 8.9 mg/dL (8.7-10.4); Chloride 103 mmol/L (98-107); Potassium 3.7 mmol/L (3.5-5.1); Sodium 136 mmol/L (136-145)
[2025-02-19 08:46] LABS: Alanine Aminotransferase < 9 U/L (7-40); Albumin 2.9 g/dL (3.2-4.8); Bilirubin, Total 0.3 mg/dL (0.2-1.0); Blood Urea Nitrogen 77 mg/dL (9-23); Carbon Dioxide 18 mmol/L (20-31); Glucose 107 mg/dL (74-106); Total Protein 4.5 g/dL (5.7-8.2)
[2025-02-19] MEDS ORDERED: BUMETANIDE INJECTION 12.5 MG in GIVE UN-DILUTED 0 ML IV SCH (11:45)
[2025-02-19] MEDS: ALBUMIN 25% 100 ML IV SCH (12:17)
[2025-02-19 12:56] LABS: Hematocrit 24.2 % (36.0-46.0); Hemoglobin 7.8 g/dL (12.2-16.2)
--- NOTE | 2025-02-19 14:13 | DVHPN2 ---
Progress Note - Dictate Date Seen: Feb 19, 2025 Medical Necessity Reason Pt with a Central, PICC or Fol: Yes The following are medically ne: Central Line, Hook Catheter Subjective SHE BECAME UNRESPONSIVE BLOOD SUGAR 166 SHE WAS MILDLY HYPOTENSIVE HAD LEFT SIGHT ARM MOVEMENT LASTED ABOUT 10 MINUTES TOTAL/ NO CLEAR POST ICTAL PERIOD PRESENTATION CONSISTENT WITH METABOLIC SYNDROME/ INFECTION ESPECIALLY WITH HER RECENT ADMISSION FOR SEPSIS/ BACTEREMIA RECENT HX OF HYPOTENSION POSITIVE BLOOD CX STAPH PRODUCTIVE COUGH HYPOXIA SEVERE ANEMIA HX OF BLEEDING DIATHESIS NOW BEING TRANSFUSE PMH; HEMATURIA HX OF ORGANIC HD S/P TAVR HX OF AV STENOSIS HTN HFpEF DIASTOLIC DYSFUNCTION AFIB ON SOTALOL HYPERCOAGULABLE STATE HX OF DVT MORBID OBESITY 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 ANEMIA HYPONATREMIA DECUB STAGE II MULTIPLE ORGANISM PSEUDOMONAS vital signs Vital Sign Date Time Temp Pulse Resp B/P (MAP) Pulse Ox O2 Delivery O2 Flow Rate FiO2 02/19/25 12:30 75 15 115/40 (65) 100 02/19/25 12:00 98.3 98.3 02/19/25 12:00 Room Air* 0 21 Total Intake and Output 02/18/25 02/18/25 02/19/25 15:00 23:00 07:00 Intake Total 50 ml 364 ml 316 ml Output Total 150 ml 100 ml Balance 50 ml 214 ml 216 ml medications Current Medications Medications Dose Ordered Sig/Taran Route Start Time Stop Time Status Last Admin Dose Admin Ondansetron HCl 4 mg Q4HP PRN IV 01/31/25 19:30 02/14/25 07:39 4 MG Acetaminophen 650 mg Q6HP PRN PO 01/31/25 19:30 02/14/25 11:29 650 MG Nitroglycerin 0.4 mg Q5MINP PRN SL 01/31/25 19:30 Carbidopa/Levodopa 2 tab HS PO 01/31/25 22:00 02/13/25 22:41 2 TAB Digoxin 125 mcg DAILY IV 02/02/25 10:00 02/18/25 10:09 125 MCG Diagnostic Test (Pha) 1 strip ACHS 02/03/25 17:00 02/19/25 11:15 1 STRIP Insulin Human Regular ACHS SC 02/03/25 17:00 Dextrose 50 ml UD PRN IV 02/03/25 16:45 02/11/25 06:54 50 ML Levothyroxine Sodium 100 mcg QAM@0600 PO 02/08/25 06:00 02/14/25 05:38 100 MCG Patient Own Medication 160 mg DAILY IV 02/09/25 10:00 UNV Patient Own Medication 1 g Q8H IV 02/08/25 12:30 UNV Enteral Nutritional Formula 240 ml TIDWM PO 02/09/25 12:00 02/14/25 09:01 240 ML Clotrimazole 1 applic DAILY TOP 02/12/25 10:00 02/19/25 11:21 1 APPLIC Patient Own Medication 1 DAILY TOP 02/12/25 10:00 02/19/25 10:00 1 Enoxaparin Sodium 40 mg BID SC 02/12/25 22:00 02/18/25 22:07 40 MG Budesonide 0.5 mg BID NEB 02/13/25 10:00 02/19/25 06:47 0.5 MG Betamethasone Dipropion Augmented 1 applic DAILY TOP 02/14/25 13:30 02/19/25 11:21 1 APPLIC Albuterol 2.5 mg Q6HR NEB 02/14/25 18:00 02/19/25 11:26 2.5 MG Norepinephrine Bitartrate 250 ml @ 3.75 mls/hr Q24H IV 02/14/25 19:00 02/14/25 19:01 3.75 MLS/HR Linezolid 300 ml @ 150 mls/hr Q12H IV 02/17/25 15:00 02/19/25 03:34 150 MLS/HR Fluticasone Propionate 100 mcg DAILY EACHNOSTRI 02/17/25 16:00 Cancel Albumin Human 100 ml @ 100 mls/hr Q8H IV 02/19/25 11:45 02/21/25 04:44 02/19/25 12:17 100 MLS/HR Bumetanide 25 mg/ Miscellaneous 100 ml @ 4 mls/hr Q24H IV 02/19/25 12:15 laboratory and microbiology Laboratory Tests 02/19/25 12:45 02/19/25 08:07 02/19/25 04:14 Test 02/19/25 08:07 Range/Units Serum Glucose 107 H 74-106 mg/dL Problem List SHE BECAME UNRESPONSIVE BLOOD SUGAR 166 HYPOTENSIVE HAD LEFT SIGHT ARM MOVEMENT LASTED ABOUT 10 MINUTES TOTAL/ NO CLEAR POST ICTAL PERIOD PRESENTATION CONSISTENT WITH METABOLIC SYNDROME/ INFECTION ESPECIALLY WITH HER RECENT ADMISSION FOR SEPSIS/ BACTEREMIA RECENT HX OF HYPOTENSION POSITIVE BLOOD CX STAPH PRODUCTIVE COUGH HYPOXIA SEVERE ANEMIA HX OF BLEEDING DIATHESIS NOW BEING TRANSFUSE PMH; HEMATURIA HX OF ORGANIC HD S/P TAVR HX OF AV STENOSIS HTN HFpEF DIASTOLIC DYSFUNCTION AFIB ON SOTALOL HYPERCOAGULABLE STATE HX OF DVT MORBID OBESITY 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 ANEMIA HYPONATREMIA PSEUDOMONAS INFECTION Assessment/Plan ABX PRESSORS WOUND CARE TRIPLE LUMEN INSERTION DC LASIX LABS START DOPAMINE RENAL PERFUSION STOOL OCCULT BLOOD SECONDARY TO HIGH BUN / CR RATIO WILL RESTART LASIX IN AM 3% saline resume gent and meropenem DC ABOVE ABX TREATMENT FOR YEAST AND VRE ENTEROCOCCUS titrate off levo START FLORINEF DC FLORINEF STARTED ON MIDODRINE CORRECT K THE MOMENT FLORINEF WAS DISCONTINUED BP DROPPED NOW WBC GOING UP AGAIN BECAUSE OF CHANGE IN ABX ABG CT NEGATIVE OF HEAD CXR NEGATIVE TITRATE OFF STEROIDS Dietary Evaluation Review Comments: 1. CCHO-60 2 gNa diet w 45g proein restriction 2. Try Devin for wound healing 3. Wt management 4. F/U with nephrology and updated lab values Expected Outcomes/Goals: Less uremic syndrome, controlled DM Plan discussed with: Patient, Daughter CC Plasma Assessment Blood Product Administration S: [id number] MONTRELL RANKIN MD Feb 19, 2025 14:13
[2025-02-19] MEDS ORDERED: LACTULOSE 20Gm/30ML SOLN PO PRN (14:30)
[2025-02-19] MEDS ORDERED: Glucerna 1.2 Cal 1Liter BOTTLE GT SCH (14:30)
[2025-02-19] MEDS: BUMETANIDE INJECTION 25 MG in GIVE UN-DILUTED 0 ML IV SCH (15:10)
--- NOTE | 2025-02-19 17:44 | DVHPN2 ---
Progress Note Date Seen: Feb 19, 2025 Medical Necessity Reason Pt with a Central, PICC or Fol: Yes The following are medically ne: Central Line, Hook Catheter Subjective Patient reports: Other (Patient is lethargic) Review of Systems: Deferred Objective vital signs Vital Sign Date Time Temp Pulse Resp B/P (MAP) Pulse Ox O2 Delivery O2 Flow Rate FiO2 02/19/25 15:10 136/44 02/19/25 15:00 76 14 99 02/19/25 14:00 Room Air* 0 21 02/19/25 12:00 98.3 98.3 Total Intake and Output 02/18/25 02/18/25 02/19/25 15:00 23:00 07:00 Intake Total 50 ml 364 ml 316 ml Output Total 150 ml 100 ml Balance 50 ml 214 ml 216 ml medications Current Medications Medications Dose Ordered Sig/Taran Route Start Time Stop Time Status Last Admin Dose Admin Ondansetron HCl 4 mg Q4HP PRN IV 01/31/25 19:30 02/14/25 07:39 4 MG Acetaminophen 650 mg Q6HP PRN PO 01/31/25 19:30 02/14/25 11:29 650 MG Nitroglycerin 0.4 mg Q5MINP PRN SL 01/31/25 19:30 Carbidopa/Levodopa 2 tab HS PO 01/31/25 22:00 02/13/25 22:41 2 TAB Digoxin 125 mcg DAILY IV 02/02/25 10:00 02/18/25 10:09 125 MCG Diagnostic Test (Pha) 1 strip ACHS 02/03/25 17:00 02/19/25 11:15 1 STRIP Insulin Human Regular ACHS SC 02/03/25 17:00 Dextrose 50 ml UD PRN IV 02/03/25 16:45 02/11/25 06:54 50 ML Levothyroxine Sodium 100 mcg QAM@0600 PO 02/08/25 06:00 02/14/25 05:38 100 MCG Patient Own Medication 160 mg DAILY IV 02/09/25 10:00 UNV Patient Own Medication 1 g Q8H IV 02/08/25 12:30 UNV Clotrimazole 1 applic DAILY TOP 02/12/25 10:00 02/19/25 11:21 1 APPLIC Patient Own Medication 1 DAILY TOP 02/12/25 10:00 02/19/25 10:00 1 Enoxaparin Sodium 40 mg BID SC 02/12/25 22:00 02/18/25 22:07 40 MG Budesonide 0.5 mg BID NEB 02/13/25 10:00 02/19/25 06:47 0.5 MG Betamethasone Dipropion Augmented 1 applic DAILY TOP 02/14/25 13:30 02/19/25 11:21 1 APPLIC Albuterol 2.5 mg Q6HR NEB 02/14/25 18:00 02/19/25 11:26 2.5 MG Norepinephrine Bitartrate 250 ml @ 3.75 mls/hr Q24H IV 02/14/25 19:00 02/14/25 19:01 3.75 MLS/HR Linezolid 300 ml @ 150 mls/hr Q12H IV 02/17/25 15:00 02/19/25 15:40 150 MLS/HR Fluticasone Propionate 100 mcg DAILY EACHNOSTRI 02/17/25 16:00 Cancel Albumin Human 100 ml @ 100 mls/hr Q8H IV 02/19/25 11:45 02/21/25 04:44 02/19/25 14:16 100 MLS/HR Bumetanide 25 mg/ Miscellaneous 100 ml @ 4 mls/hr Q24H IV 02/19/25 12:15 02/19/25 15:10 4 MLS/HR Lactulose 30 ml Q6HPRN PRN PO 02/19/25 14:30 Enteral Nutritional Formula 1,000 ml 60ML/HR GT 02/19/25 16:15 Sucralfate 2 gm BID@0600,2200 NG 02/19/25 22:00 Examination: GENERAL:Abnormal, LUNGS:Abnormal, MSK:Abnormal, SKIN:Abnormal, NEURO:Abnormal laboratory and microbiology Laboratory Tests 02/19/25 12:45 02/19/25 08:07 02/19/25 04:14 Test 02/19/25 08:07 Range/Units Serum Glucose 107 H 74-106 mg/dL Microbiology Date/Time Source Procedure Growth Status 02/08/25 22:15 Urine - Hook Port Urine Culture - Final Enterococcus faecalis Complete 02/08/25 20:11 Blood Blood Culture - Final NO GROWTH AFTER 5 DAYS OF INCUBATION. Complete 02/03/25 00:50 Nose MRSA Screen - Final Complete Problem List/Assessment/Plan Problem List/Assessment/Plan Acute kidney injury hemodynamic mediated etiology in the setting of severe sepsis, hypotension Hyponatremia in the setting of anasarca Hypokalemia AFib acute diastolic heart failure Septic Shock [place] kidney history of ureteral stent Status post TAVR Hypertension History of DVT Hypokalemia Recommendations Bumex drip 1 mg/hour Albumin IV Q 8 hours as ordered Patient oligo anuric Consideration for renal replacement therapy if no response to diuretics Plan discussed with: Daughter, Other My Orders My Orders Orders - SOCRATES POZO MD Procedure Category Date Status Time Albumin 25% (Albutein) PHA 02/19/25 In Process 11:45 Give Un-Diluted PHA 02/19/25 In Process (Gi... W/Bumetanide 12:15 Dietary Evaluation Review Comments: 1. CCHO-60 2 gNa diet w 45g proein restriction 2. Try Devin for wound healing 3. Wt management 4. F/U with nephrology and updated lab values Expected Outcomes/Goals: Less uremic syndrome, controlled DM CC Plasma Assessment Blood Product Administration S: [id number] SOCRATES POZO MD Feb 19, 2025 17:44
--- NOTE | 2025-02-19 18:30 | DVH ---
CHEST RADIOGRAPH Indication: NG TUBE PLACEMENT Technique: Single frontal view of the chest was obtained Comparison: XY CHEST XRAY 1 VIEW on DOS: 02/14/25, XY CHEST XRAY 1 VIEW on DOS: 02/12/25, XY CHEST PORT ABLE on DOS: 02/08/25 FINDINGS: Lines and Tubes: Central line left place unchanged. Enteric tube below the left diaphragm in the stom ach. Lungs: Pulmonary findings not significantly improved from 2024 Pleura: No effusion. No pneumothorax. Cardiomediastinal contours: Unremarkable Bones: No acute osseous abnormality. IMPRESSION: 1. Enteric tube in the stomach below the left diaphragm 2. Central line in place unchanged 3. No improvement in the cardiopulmonary findings.
--- NOTE | 2025-02-19 19:23 | DVHPNRES ---
Progress Note Date Seen: Feb 19, 2025 Resident Creating Document: CHANELLE ALBERT RESIDENT Medical Necessity Reason Pt with a Central, PICC or Fol: Yes The following are medically ne: Central Line, Hook Catheter Subjective Review of Systems ID marketing database consultant note TANESHA Maire 79-year-old female with past medical history includes congestive heart failure, chronic kidney disease, diabetes mellitus, hypertension, hypothyroidism, anemia, atrial fibrillation and tonsillectomy presents with altered mental status following a recent onet progressive lethargy following a recent hospitalization for sepsis. 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 Presently, she has sacral and buttock ulcers with serous drainage, suggestive of pressure injury and psoriatic flare, along with stage 12 ulcers on her posterior thighs and ecchymosis with blistering on both upper extremities. She required Levophed for hypotension in the ED and was started on levofloxacin due to allergies to penicillin and ceftriaxone. Labs show mild lactic acidosis, significant pyuria, and VRE with presumptive *Leidy albicans* in the urine. Imaging reveals cerebral volume loss on head CT and a chest X-ray showing cardiomegaly, left lower lobe opacity, and prominent pulmonary vasculature. She lives with family, who deny any substance abuse. Patient seen and examined at the bedside. As per ID we will do renal ultrasound to rule out infection hydronephrosis if it is negative We will discontinue Linezolid. Objective vital signs Vital Sign Date Time Temp Pulse Resp B/P (MAP) Pulse Ox O2 Delivery O2 Flow Rate FiO2 02/19/25 18:00 68 15 86/59 (68) 97 02/19/25 18:00 Room Air* 0 21 02/19/25 16:00 97.2 97.2 Total Intake and Output 02/18/25 02/18/25 02/19/25 15:00 23:00 07:00 Intake Total 50 ml 364 ml 316 ml Output Total 150 ml 100 ml Balance 50 ml 214 ml 216 ml medications Current Medications Medications Dose Ordered Sig/Taran Route Start Time Stop Time Status Last Admin Dose Admin Ondansetron HCl 4 mg Q4HP PRN IV 01/31/25 19:30 02/14/25 07:39 4 MG Acetaminophen 650 mg Q6HP PRN PO 01/31/25 19:30 02/14/25 11:29 650 MG Nitroglycerin 0.4 mg Q5MINP PRN SL 01/31/25 19:30 Carbidopa/Levodopa 2 tab HS PO 01/31/25 22:00 02/13/25 22:41 2 TAB Digoxin 125 mcg DAILY IV 02/02/25 10:00 02/18/25 10:09 125 MCG Diagnostic Test (Pha) 1 strip ACHS 02/03/25 17:00 02/19/25 17:35 1 STRIP Insulin Human Regular ACHS SC 02/03/25 17:00 Dextrose 50 ml UD PRN IV 02/03/25 16:45 02/11/25 06:54 50 ML Levothyroxine Sodium 100 mcg QAM@0600 PO 02/08/25 06:00 02/14/25 05:38 100 MCG Patient Own Medication 160 mg DAILY IV 02/09/25 10:00 UNV Patient Own Medication 1 g Q8H IV 02/08/25 12:30 UNV Clotrimazole 1 applic DAILY TOP 02/12/25 10:00 02/19/25 11:21 1 APPLIC Patient Own Medication 1 DAILY TOP 02/12/25 10:00 02/19/25 10:00 1 Enoxaparin Sodium 40 mg BID SC 02/12/25 22:00 02/18/25 22:07 40 MG Budesonide 0.5 mg BID NEB 02/13/25 10:00 02/19/25 06:47 0.5 MG Betamethasone Dipropion Augmented 1 applic DAILY TOP 02/14/25 13:30 02/19/25 11:21 1 APPLIC Albuterol 2.5 mg Q6HR NEB 02/14/25 18:00 02/19/25 11:26 2.5 MG Norepinephrine Bitartrate 250 ml @ 3.75 mls/hr Q24H IV 02/14/25 19:00 02/14/25 19:01 3.75 MLS/HR Linezolid 300 ml @ 150 mls/hr Q12H IV 02/17/25 15:00 02/19/25 15:40 150 MLS/HR Fluticasone Propionate 100 mcg DAILY EACHNOSTRI 02/17/25 16:00 Cancel Albumin Human 100 ml @ 100 mls/hr Q8H IV 02/19/25 11:45 02/21/25 04:44 02/19/25 14:16 100 MLS/HR Bumetanide 25 mg/ Miscellaneous 100 ml @ 4 mls/hr Q24H IV 02/19/25 12:15 02/19/25 15:10 4 MLS/HR Lactulose 30 ml Q6HPRN PRN PO 02/19/25 14:30 Enteral Nutritional Formula 1,000 ml 60ML/HR GT 02/19/25 16:15 Sucralfate 2 gm BID@0600,2200 NG 02/19/25 22:00 Examination Gen: 79-year-old female in mild distress, morbidly obese, overall 3rd spacing with anasarca 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 Skin: Warm, dry, normal color and texture, no rash. HEENT: Normocephalic atraumatic, mucous membranes moist and pink. Neck: Cervical and supraclavicular nodes normal without enlargement, trachea is midline, thyroid gland is normal without masses. Pulmonary: Clear to auscultation and percussion bilaterally. Cardiac: Regular rate and rhythm. No murmur Abdomen: Soft, nontender, nondistended, bowel sounds present all 4 quadrants, no guarding, no rigidity, no organomegaly. Warm and dry, no rashes. Notable for serous oozing from sacral and buttock ulcers with some psoriatic component, scattered ecchymosis and blister on right upper arm, bilateral upper extremity ulcers, stage 12 ulcers on posterior thighs. Extremities: No cyanosis, clubbing, no edema Neuro: Cranial nerves II through XII grossly intact, normal affect and speech, no focal motor deficits. laboratory and microbiology Laboratory Tests 02/19/25 12:45 02/19/25 08:07 02/19/25 04:14 Test 02/19/25 08:07 Range/Units Serum Glucose 107 H 74-106 mg/dL Microbiology Date/Time Source Procedure Growth Status 02/08/25 22:15 Urine - Hook Port Urine Culture - Final Enterococcus faecalis Complete 02/08/25 20:11 Blood Blood Culture - Final NO GROWTH AFTER 5 DAYS OF INCUBATION. Complete 02/03/25 00:50 Nose MRSA Screen - Final Complete Problem List/Assessment/Plan Problem List/Assessment/Plan Assessment Acute metabolic encephalopathy Septic shock due to UTI with a Enterococcus faecalis and VRE Recent sepsis with a wound infection due to Pseudomonas aeruginosa MDRO Morbid obesity Bed-bound Type 2 diabetes Acute kidney injury Left hydronephrosis Horseshoe kidney Status post ureteral stent Chronic anemia Hyponatremia Atrial fibrillation Heart failure with preserved ejection fraction Plan Ongoing since I have infection as of now Stool occult blood for possible GI bleed due to given anemia Renal ultrasound to evaluate infection and hydro nephrosis if negative we will discontinue linezolid And no need of further IV antibiotics If there is still concern for UTI change Hook's suspect leukocytosis is due to hydrocortisone use restarted on bumex ggt, continue to recommend to not overdiurese patient, patient has evidence of intravascular depletion, resulting in naseem and hypotension. albumin as needed , defer to primary team Plan discussed with Dr. Otilia Adler Plan discussed with: Other (RN) My Orders My Orders Orders - CHANELLE ALBERT Procedure Category Date Status Time Kidney US 02/19/25 Logged 19:14 Stool Occult Blood LAB 02/19/25 Logged 19:14 Dietary Evaluation Review Comments: 1. CCHO-60 2 gNa diet w 45g proein restriction 2. Try Devin for wound healing 3. Wt management 4. F/U with nephrology and updated lab values Expected Outcomes/Goals: Less uremic syndrome, controlled DM CC Plasma Assessment Blood Product Administration S: [id number] CHANELLE ALBERT RESIDENT Feb 19, 2025 19:23
[2025-02-19] MEDS: Glucerna 1.2 Cal 1Liter BOTTLE GT SCH (19:50)
[2025-02-19] MEDS: SUCRALFATE 1 GM/10 ML ORAL SUSP NG SCH (21:34)
--- NOTE | 2025-02-19 21:39 | DVH ---
CLINICAL HISTORY: Evaluate infection and hydronephrosis TECHNIQUE: Complete ultrasound exam of the kidneys and bladder was performed. COMPARISON: XY KUB ABDOMEN SINGLE VIEW on DOS: 11/01/23, XY KUB ABDOMEN SINGLE VIEW on DOS: 10/12/23, E CHO 2D MODE CARDIAC DOP on DOS: 12/04/22 FINDINGS: There is a horseshoe kidney. The right renal moiety is not seen. The left renal moiety is poorly seen and measures 10.3 cm. There is no focal parenchymal abnormality or evidence for stone. There is no hydronephrosis. The bladder is decompressed by Hook catheter. IMPRESSION: Horseshoe kidney with right renal moiety not seen, likely related to severe atrophy. Unremarkable poorly seen left renal moiety.
--- NOTE | 2025-02-19 23:07 | DVHPN2 ---
[facility] DOS: 02/19/25 Patient seen and examined at bedside. Breathing on room air. Overnight events reviewed. HPI: An 79-year-old woman with PMHx of CHF, chronic kidney disease, diabetes mellitus, hypertension, AFib, thyroid disease and anemia who presented to ED on 02/01/25 for evaluation of altered mental status. Patient was recently discharged after being treated for sepsis. Patient was acting lethargic and altered on day prior to presentation, therefore family brought her in for further evaluation. Patient was lethargic, oriented times two on day of presentation. No unilateral weakness noted or slurred speech. No cardiac or respiratory symptoms. Patient was admitted for further care. Pulmonary consultation is requested for evaluation and management d/t pleural effusions. Past Medical History CHF, chronic kidney disease, diabetes mellitus, hypertension, thyroid, anemia, AFib Past Surgical History Tonsillectomy Family History Noncontributory Social History No smoking, alcohol or illicit drug use. Medications: Reviewed. Allergies: Penicillins (Unverified Allergy, Severe, 03/16/15) Sulfa Antibiotics (Unverified Allergy, Severe, 03/16/15) Morphine (Verified Allergy, Intermediate, ALTERED, 01/31/18) Ceftriaxone (Verified Allergy, Unknown, 01/31/18) Reviewed: Care Plan, H&P, Labs, Medications, Previous Orders, Radiology Changes from previous H/P or p: No Changes Objective Vitals Vital Signs Date Time Temp Pulse Resp B/P (MAP) Pulse Ox O2 Delivery O2 Flow Rate FiO2 02/19/25 22:00 22 98 Room Air* 0 21 02/19/25 22:00 81 02/19/25 18:00 86/59 (68) 02/19/25 16:00 97.2 97.2 Intake/Output Intake and Output 02/19/25 07:00 Intake Total 730 ml Output Total 250 ml Balance 480 ml Intake Oral 0 ml IV Total 730 ml Output Urine Total 250 ml General Appearance: Alert, Other (Disoriented) HEENT: Atraumatic, PERRLA, EOMI Lungs: Clear to auscultation, Other (Decreased air movement bilaterally. No wheezing. No rhonchi) Cardiovascular: Regular rate, Normal S1, Normal S2 Abdomen: Normal bowel sounds, Soft, No tenderness Musculoskeletal: Normal sensory function, Normal motor function Extremities: Other (2+ edema bilaterally in the lower extremities) Neuro: Strength at 5/5 X4 ext, Cranial nerves 3-12 NL Skin: Significant Lesion, Dry, Intact, Warm Psych/Mental Status: Mental status NL, Mood NL Medications Current Medications Medications Dose Ordered Sig/Taran Route Start Time Stop Time Status Last Admin Dose Admin Ondansetron HCl 4 mg Q4HP PRN IV 01/31/25 19:30 02/14/25 07:39 4 MG Acetaminophen 650 mg Q6HP PRN PO 01/31/25 19:30 02/14/25 11:29 650 MG Nitroglycerin 0.4 mg Q5MINP PRN SL 01/31/25 19:30 Carbidopa/Levodopa 2 tab HS PO 01/31/25 22:00 02/19/25 21:34 2 TAB Digoxin 125 mcg DAILY IV 02/02/25 10:00 02/18/25 10:09 125 MCG Diagnostic Test (Pha) 1 strip ACHS 02/03/25 17:00 02/19/25 21:34 1 STRIP Insulin Human Regular ACHS SC 02/03/25 17:00 Dextrose 50 ml UD PRN IV 02/03/25 16:45 02/11/25 06:54 50 ML Levothyroxine Sodium 100 mcg QAM@0600 PO 02/08/25 06:00 02/14/25 05:38 100 MCG Patient Own Medication 160 mg DAILY IV 02/09/25 10:00 UNV Patient Own Medication 1 g Q8H IV 02/08/25 12:30 UNV Clotrimazole 1 applic DAILY TOP 02/12/25 10:00 02/19/25 11:21 1 APPLIC Patient Own Medication 1 DAILY TOP 02/12/25 10:00 02/19/25 10:00 1 Enoxaparin Sodium 40 mg BID SC 02/12/25 22:00 02/19/25 21:34 40 MG Budesonide 0.5 mg BID NEB 02/13/25 10:00 02/19/25 23:02 0.5 MG Betamethasone Dipropion Augmented 1 applic DAILY TOP 02/14/25 13:30 02/19/25 11:21 1 APPLIC Albuterol 2.5 mg Q6HR NEB 02/14/25 18:00 02/19/25 23:01 2.5 MG Norepinephrine Bitartrate 250 ml @ 3.75 mls/hr Q24H IV 02/14/25 19:00 02/14/25 19:01 3.75 MLS/HR Linezolid 300 ml @ 150 mls/hr Q12H IV 02/17/25 15:00 02/19/25 15:40 150 MLS/HR Fluticasone Propionate 100 mcg DAILY EACHNOSTRI 02/17/25 16:00 Cancel Albumin Human 100 ml @ 100 mls/hr Q8H IV 02/19/25 11:45 02/21/25 04:44 02/19/25 14:16 100 MLS/HR Bumetanide 25 mg/ Miscellaneous 100 ml @ 4 mls/hr Q24H IV 02/19/25 12:15 02/19/25 15:10 4 MLS/HR Lactulose 30 ml Q6HPRN PRN PO 02/19/25 14:30 Enteral Nutritional Formula 1,000 ml 60ML/HR GT 02/19/25 16:15 02/19/25 19:50 1,000 ML Sucralfate 2 gm BID@0600,2200 NG 02/19/25 22:00 02/19/25 21:34 2 GM Laboratory Results Laboratory Tests 02/19/25 04:14 02/19/25 08:07 02/19/25 12:45 Chemistry Test 02/19/25 05:21 02/19/25 08:07 Albumin 2.9 g/dL (3.2-4.8) L 2.9 g/dL (3.2-4.8) L Calcium Level 9.0 mg/dL (8.7-10.4) 8.9 mg/dL (8.7-10.4) Magnesium Level 2.2 mg/dL (1.6-2.6) Phosphorus Level 3.7 mg/dL (2.4-5.1) Total Protein 4.5 g/dL (5.7-8.2) L 4.5 g/dL (5.7-8.2) L LFT Test 02/19/25 05:21 02/19/25 08:07 Alanine Aminotransferase (ALT) < 9 U/L (7-40) < 9 U/L (7-40) Alkaline Phosphatase 73 U/L (46-116) 74 U/L (46-116) Aspartate Amino Transferase (AST) 23 U/L (13-40) 24 U/L (13-40) Total Bilirubin 0.3 mg/dL (0.2-1.0) 0.3 mg/dL (0.2-1.0) Urinalysis Test 01/31/25 16:30 02/08/25 11:45 Urine Hyaline Casts Few /lpf (0 - 2) Urine Mucus Few (None Seen) Urine Color Yellow (Yellow) Urine Clarity Cloudy (Clear) H Urine pH 5.5 (5.0-9.0) Urine Specific Hope 1.013 (1.001-1.035) Urine Protein 1+ (Negative) H Urine Ketones Negative (Negative) Urine Blood 1+ /uL (Negative) H Urine Nitrite Negative (Negative) Urine Bilirubin Negative (Negative) Urine Urobilinogen Normal mg/dL (Negative) Urine Leukocyte Esterase 3+ /uL (Negative) Urine RBC 110 /hpf (0 - 4) Urine WBC Clumps Present /hpf (None Seen) Urine Microscopic WBC 1269 /HPF (0-5) H Urine Squamous Epithelial Cells Few /hpf (<5) Urine Bacteria Few /hpf (None Seen) H Urine Yeast (Budding) Loaded /hpf (None Seen) Urine Glucose Normal mg/dL (Normal) Microbiology Microbiology Date/Time Source Procedure Growth Status 02/08/25 22:15 Urine - Hook Port Urine Culture - Final Enterococcus faecalis Complete 02/08/25 20:11 Blood Blood Culture - Final NO GROWTH AFTER 5 DAYS OF INCUBATION. Complete 02/03/25 00:50 Nose MRSA Screen - Final Complete Assessment/Plan Assessment/Plan Impression: Acute metabolic encephalopathy Septic shock due to UTI Morbid obesity, BMI 42.3 Snoring, likely ARPAN Urinary tract infection Congestive heart failure (HFpEF) Hyponatremia Pleural effusions Atelectasis Events: Breathing on room air Supplemental oxygen PRN Check chest x-ray for NG tube placement. Continue bronchodilators Continue Pulmicort Continue antibiotics ID recommendations appreciated Incentive spirometry On albumin HOB elevation Aspiration precautions. S/p 1 unit PRBC transfusion Monitor hemoglobin Continue IV iron supplementation Continue Bumex drip for diuresis Monitor renal function - BUN and Cr trending up Monitor electrolytes. Supplement as necessary. Nephrology recommendations appreciated. Continue Lovenox BID for DVT ppx. Head CT negative for ICH or stroke. Neurology recs appreciated. Labs and imaging reviewed. Rest of plan as noted below. Plan: Supplemental oxygen PRN Titrate to keep O2 sats above 92%. 02/14 - Patient underwent femoral central line placement for administration of pressors as unable to place IJ or SCV line - unable to thread line. See separate procedure note for details. Bronchodilators PRN. Continue antibiotics Incentive spirometry Pressors as necessary for hemodynamic support Titrate to keep mean arterial pressure greater than 65 mmHg. Follow up Cardiology recs Diurese to euvolemia Monitor renal function. Monitor electrolytes. Supplement as necessary. Monitor sodium Monitor ins and outs. DVT prophylaxis - Lovenox. Prognosis: Poor given patient's multiple co-morbidities. Rest of plan per hospitalist and other consultants. Thank you, Dr. Castaneda, for allowing me to participate in this patient's care. Further recommendations will depend on the patient's clinical course. Please do not hesitate to contact me if you have any questions or concerns. This medical document was created using an electronic medical record system with [employer] dictation system. Although these documentations are being carefully reviewed, there may still be some phonetic and typographical changes. The errors are purely typographical, due to imperfection on the software program, and do not reflect any compromise in the patient's medical care. Plan discussed with: Other (FABIO Robles) My Orders Orders - BENITO WILLARD MD Procedure Category Date Status Time Communication Order ORDERS 02/19/25 Transmitted 18:50 Date of Service: Feb 19, 2025 Billing Provider: BENITO WILLARD MD Common Visit Codes: [id number] INP/OBS CARE(HIGH) BENITO WILLARD MD Feb 19, 2025 23:07
[2025-02-20] VITALS (65 sets, daily range): BP systolic 66–136; BP diastolic 13–56; PULSE 63–104; RESP 14–30; TEMP 96.8–98; O2SAT 90–100
[2025-02-20 06:14] LABS: Hematocrit 20.6 % (36.0-46.0); Mean Corpuscular Hemoglobin 29.6 pg (28.0-32.0); Mean Corpuscular Volume 86.6 fL (80.0-100.0)
[2025-02-20 06:31] LABS: Alanine Aminotransferase < 9 U/L (7-40); Albumin 3.6 g/dL (3.2-4.8); Alkaline Phosphatase 66 U/L (46-116); Anion Gap 18 (5-15); BUN/Creatinine Ratio 36.2 (10.0-20.0); Bilirubin, Total 0.5 mg/dL (0.2-1.0); Calcium 9.2 mg/dL (8.7-10.4); Carbon Dioxide 18 mmol/L (20-31); Chloride 102 mmol/L (98-107); Glucose 110 mg/dL (74-106); Hemoglobin 7.0 g/dL (12.2-16.2); Potassium 3.6 mmol/L (3.5-5.1); Sodium 138 mmol/L (136-145); Total Protein 5.2 g/dL (5.7-8.2)
[2025-02-20 06:32] LABS: Blood Urea Nitrogen 83 mg/dL (9-23)
[2025-02-20 07:06] LABS: Nucleated Red Blood Cells % 12.0 %; Total Cells Counted 100.0 (100)
--- NOTE | 2025-02-20 10:12 | DVHPN2 ---
Progress Note - Dictate Date Seen: Feb 20, 2025 Medical Necessity Reason Pt with a Central, PICC or Fol: Yes The following are medically ne: Central Line, Hook Catheter Subjective SHE BECAME UNRESPONSIVE BLOOD SUGAR 166 SHE WAS MILDLY HYPOTENSIVE HAD LEFT SIGHT ARM MOVEMENT LASTED ABOUT 10 MINUTES TOTAL/ NO CLEAR POST ICTAL PERIOD PRESENTATION CONSISTENT WITH METABOLIC SYNDROME/ INFECTION ESPECIALLY WITH HER RECENT ADMISSION FOR SEPSIS/ BACTEREMIA RECENT HX OF HYPOTENSION POSITIVE BLOOD CX STAPH PRODUCTIVE COUGH HYPOXIA SEVERE ANEMIA HX OF BLEEDING DIATHESIS NOW BEING TRANSFUSE PMH; HEMATURIA HX OF ORGANIC HD S/P TAVR HX OF AV STENOSIS HTN HFpEF DIASTOLIC DYSFUNCTION AFIB ON SOTALOL HYPERCOAGULABLE STATE HX OF DVT MORBID OBESITY 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 ANEMIA HYPONATREMIA DECUB STAGE II MULTIPLE ORGANISM PSEUDOMONAS vital signs Vital Sign Date Time Temp Pulse Resp B/P (MAP) Pulse Ox O2 Delivery O2 Flow Rate FiO2 02/20/25 08:00 78 19 97 Room Air* 0 21 02/20/25 07:00 102/56 (71) 02/20/25 06:00 96.8 96.8 Total Intake and Output 02/19/25 02/19/25 02/20/25 15:00 23:00 07:00 Intake Total 710 ml 324 ml 587 ml Output Total 70 ml 50 ml Balance 710 ml 254 ml 537 ml medications Current Medications Medications Dose Ordered Sig/Taran Route Start Time Stop Time Status Last Admin Dose Admin Ondansetron HCl 4 mg Q4HP PRN IV 01/31/25 19:30 02/14/25 07:39 4 MG Acetaminophen 650 mg Q6HP PRN PO 01/31/25 19:30 02/14/25 11:29 650 MG Nitroglycerin 0.4 mg Q5MINP PRN SL 01/31/25 19:30 Carbidopa/Levodopa 2 tab HS PO 01/31/25 22:00 02/19/25 21:34 2 TAB Digoxin 125 mcg DAILY IV 02/02/25 10:00 02/18/25 10:09 125 MCG Diagnostic Test (Pha) 1 strip ACHS 02/03/25 17:00 02/20/25 06:22 1 STRIP Insulin Human Regular ACHS SC 02/03/25 17:00 Dextrose 50 ml UD PRN IV 02/03/25 16:45 02/11/25 06:54 50 ML Levothyroxine Sodium 100 mcg QAM@0600 PO 02/08/25 06:00 02/20/25 06:21 100 MCG Patient Own Medication 160 mg DAILY IV 02/09/25 10:00 UNV Patient Own Medication 1 g Q8H IV 02/08/25 12:30 UNV Clotrimazole 1 applic DAILY TOP 02/12/25 10:00 02/19/25 11:21 1 APPLIC Patient Own Medication 1 DAILY TOP 02/12/25 10:00 02/19/25 10:00 1 Enoxaparin Sodium 40 mg BID SC 02/12/25 22:00 02/19/25 21:34 40 MG Budesonide 0.5 mg BID NEB 02/13/25 10:00 02/20/25 06:43 0.5 MG Betamethasone Dipropion Augmented 1 applic DAILY TOP 02/14/25 13:30 02/19/25 11:21 1 APPLIC Albuterol 2.5 mg Q6HR NEB 02/14/25 18:00 02/20/25 06:43 2.5 MG Norepinephrine Bitartrate 250 ml @ 3.75 mls/hr Q24H IV 02/14/25 19:00 02/14/25 19:01 3.75 MLS/HR Linezolid 300 ml @ 150 mls/hr Q12H IV 02/17/25 15:00 02/20/25 03:47 150 MLS/HR Fluticasone Propionate 100 mcg DAILY EACHNOSTRI 02/17/25 16:00 Cancel Albumin Human 100 ml @ 100 mls/hr Q8H IV 02/19/25 11:45 02/21/25 04:44 02/20/25 03:48 100 MLS/HR Bumetanide 25 mg/ Miscellaneous 100 ml @ 4 mls/hr Q24H IV 02/19/25 12:15 02/19/25 15:10 4 MLS/HR Lactulose 30 ml Q6HPRN PRN PO 02/19/25 14:30 Enteral Nutritional Formula 1,000 ml 60ML/HR GT 02/19/25 16:15 02/19/25 19:50 1,000 ML Sucralfate 2 gm BID@0600,2200 NG 02/19/25 22:00 02/20/25 06:21 2 GM laboratory and microbiology Laboratory Tests 02/20/25 05:10 Test 02/20/25 05:10 Range/Units Serum Glucose 110 H 74-106 mg/dL Problem List SHE BECAME UNRESPONSIVE BLOOD SUGAR 166 HYPOTENSIVE HAD LEFT SIGHT ARM MOVEMENT LASTED ABOUT 10 MINUTES TOTAL/ NO CLEAR POST ICTAL PERIOD PRESENTATION CONSISTENT WITH METABOLIC SYNDROME/ INFECTION ESPECIALLY WITH HER RECENT ADMISSION FOR SEPSIS/ BACTEREMIA RECENT HX OF HYPOTENSION POSITIVE BLOOD CX STAPH PRODUCTIVE COUGH HYPOXIA SEVERE ANEMIA HX OF BLEEDING DIATHESIS NOW BEING TRANSFUSE PMH; HEMATURIA HX OF ORGANIC HD S/P TAVR HX OF AV STENOSIS HTN HFpEF DIASTOLIC DYSFUNCTION AFIB ON SOTALOL HYPERCOAGULABLE STATE HX OF DVT MORBID OBESITY 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 ANEMIA HYPONATREMIA PSEUDOMONAS INFECTION Assessment/Plan ABX PRESSORS WOUND CARE TRIPLE LUMEN INSERTION DC LASIX LABS START DOPAMINE RENAL PERFUSION STOOL OCCULT BLOOD SECONDARY TO HIGH BUN / CR RATIO WILL RESTART LASIX IN AM 3% saline resume gent and meropenem DC ABOVE ABX TREATMENT FOR YEAST AND VRE ENTEROCOCCUS titrate off levo START FLORINEF DC FLORINEF STARTED ON MIDODRINE CORRECT K THE MOMENT FLORINEF WAS DISCONTINUED BP DROPPED NOW WBC GOING UP AGAIN BECAUSE OF CHANGE IN ABX ABG CT NEGATIVE OF HEAD CXR NEGATIVE TITRATE OFF STEROIDS TRANSFUSE 1 UNIT PRBC STRESS ULCERATION AND SECONDARY TO STEROID USE/ START CARAFATE Dietary Evaluation Review Comments: 1. CCHO-60 2 gNa diet w 45g proein restriction 2. Try Devin for wound healing 3. Wt management 4. F/U with nephrology and updated lab values Expected Outcomes/Goals: Less uremic syndrome, controlled DM Plan discussed with: Patient Critical Care Time(min): 35 CC Plasma Assessment Blood Product Administration S: 1015 MONTRELL RANKIN MD Feb 20, 2025 10:12
--- NOTE | 2025-02-20 12:53 | DVHPN2 ---
Visit Coding Pulmonary Billing Provider: BENITO WILLARD MD Date of Service if different f: Feb 14, 2025 Common Visit Codes: [id number] CARE 30-74 MIN Procedure Codes: [id number] NON-TUNNEL CV CATH (19555 US Add on) BENITO WILLARD MD Feb 20, 2025 12:53
--- NOTE | 2025-02-20 12:54 | DVHPN2 ---
Visit Coding Pulmonary Billing Provider: BENITO WILLARD MD Date of Service if different f: Feb 15, 2025 Common Visit Codes: [id number] CARE 30-74 MIN Procedure Codes: [id number] NON-TUNNEL CV CATH (56123 US Add On) BENITO WILLARD MD Feb 20, 2025 12:54
--- NOTE | 2025-02-20 15:52 | DVHPNRES ---
Progress Note Date Seen: Feb 20, 2025 Resident Creating Document: GREGG GALLOWAY RESIDENT Medical Necessity Reason Pt with a Central, PICC or Fol: Yes The following are medically ne: Central Line, Hook Catheter Subjective Review of Systems TANESHA Marie 79-year-old female with past medical history includes congestive heart failure, chronic kidney disease, diabetes mellitus, hypertension, hypothyroidism, anemia, atrial fibrillation and tonsillectomy presents with altered mental status following a recent onet progressive lethargy following a recent hospitalization for sepsis. 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 Presently, she has sacral and buttock ulcers with serous drainage, suggestive of pressure injury and psoriatic flare, along with stage 12 ulcers on her posterior thighs and ecchymosis with blistering on both upper extremities. She required Levophed for hypotension in the ED and was started on levofloxacin due to allergies to penicillin and ceftriaxone. Labs show mild lactic acidosis, significant pyuria, and VRE with presumptive *Leidy albicans* in the urine. Imaging reveals cerebral volume loss on head CT and a chest X-ray showing cardiomegaly, left lower lobe opacity, and prominent pulmonary vasculature. She lives with family, who deny any substance abuse. Patient seen and examined at the bedside. Today Patient is A&O x1. She has minimal urine output of 40 mL. As per ID renal ultrasound ruled out infection and Discontinued Linezolid. GI consult placed to rule out possible GI bleed. Objective vital signs Vital Sign Date Time Temp Pulse Resp B/P (MAP) Pulse Ox O2 Delivery O2 Flow Rate FiO2 02/20/25 14:41 97.3 78 16 77/21 97.3 02/20/25 14:00 95 02/20/25 11:51 Room Air 02/20/25 11:51 0 21 Total Intake and Output 02/19/25 02/19/25 02/20/25 15:00 23:00 07:00 Intake Total 710 ml 324 ml 587 ml Output Total 70 ml 50 ml Balance 710 ml 254 ml 537 ml medications Current Medications Medications Dose Ordered Sig/Taran Route Start Time Stop Time Status Last Admin Dose Admin Ondansetron HCl 4 mg Q4HP PRN IV 01/31/25 19:30 02/14/25 07:39 4 MG Acetaminophen 650 mg Q6HP PRN PO 01/31/25 19:30 02/14/25 11:29 650 MG Nitroglycerin 0.4 mg Q5MINP PRN SL 01/31/25 19:30 Carbidopa/Levodopa 2 tab HS PO 01/31/25 22:00 02/19/25 21:34 2 TAB Digoxin 125 mcg DAILY IV 02/02/25 10:00 02/20/25 09:54 125 MCG Diagnostic Test (Pha) 1 strip ACHS 02/03/25 17:00 02/20/25 13:51 1 STRIP Insulin Human Regular ACHS SC 02/03/25 17:00 Dextrose 50 ml UD PRN IV 02/03/25 16:45 02/11/25 06:54 50 ML Levothyroxine Sodium 100 mcg QAM@0600 PO 02/08/25 06:00 02/20/25 06:21 100 MCG Patient Own Medication 160 mg DAILY IV 02/09/25 10:00 UNV Patient Own Medication 1 g Q8H IV 02/08/25 12:30 UNV Clotrimazole 1 applic DAILY TOP 02/12/25 10:00 02/20/25 10:00 1 APPLIC Patient Own Medication 1 DAILY TOP 02/12/25 10:00 02/20/25 10:00 1 Enoxaparin Sodium 40 mg BID SC 02/12/25 22:00 02/20/25 09:53 40 MG Budesonide 0.5 mg BID NEB 02/13/25 10:00 02/20/25 06:43 0.5 MG Betamethasone Dipropion Augmented 1 applic DAILY TOP 02/14/25 13:30 02/20/25 10:00 1 APPLIC Albuterol 2.5 mg Q6HR NEB 02/14/25 18:00 02/20/25 11:51 2.5 MG Norepinephrine Bitartrate 250 ml @ 3.75 mls/hr Q24H IV 02/14/25 19:00 02/14/25 19:01 3.75 MLS/HR Linezolid 300 ml @ 150 mls/hr Q12H IV 02/17/25 15:00 02/20/25 03:47 150 MLS/HR Fluticasone Propionate 100 mcg DAILY EACHNOSTRI 02/17/25 16:00 Cancel Albumin Human 100 ml @ 100 mls/hr Q8H IV 02/19/25 11:45 02/21/25 04:44 02/20/25 13:53 100 MLS/HR Bumetanide 25 mg/ Miscellaneous 100 ml @ 4 mls/hr Q24H IV 02/19/25 12:15 02/20/25 13:54 4 MLS/HR Lactulose 30 ml Q6HPRN PRN PO 02/19/25 14:30 Enteral Nutritional Formula 1,000 ml 60ML/HR GT 02/19/25 16:15 02/19/25 19:50 1,000 ML Sucralfate 2 gm BID@0600,2200 NG 02/19/25 22:00 02/20/25 06:21 2 GM Examination Gen: 79-year-old female in mild distress, morbidly obese, overall 3rd spacing with anasarca 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 Skin: Warm, dry, normal color and texture, no rash. HEENT: Normocephalic atraumatic, mucous membranes moist and pink. Neck: Cervical and supraclavicular nodes normal without enlargement, trachea is midline, thyroid gland is normal without masses. Pulmonary: Clear to auscultation and percussion bilaterally. Cardiac: Regular rate and rhythm. No murmur Abdomen: Soft, nontender, nondistended, bowel sounds present all 4 quadrants, no guarding, no rigidity, no organomegaly. Warm and dry, no rashes. Notable for serous oozing from sacral and buttock ulcers with some psoriatic component, scattered ecchymosis and blister on right upper arm, bilateral upper extremity ulcers, stage 12 ulcers on posterior thighs. Extremities: No cyanosis, clubbing, no edema Neuro: Cranial nerves II through XII grossly intact, normal affect and speech, no focal motor deficits. laboratory and microbiology Laboratory Tests 02/20/25 05:10 Test 02/20/25 05:10 Range/Units Serum Glucose 110 H 74-106 mg/dL Microbiology Date/Time Source Procedure Growth Status 02/08/25 22:15 Urine - Hook Port Urine Culture - Final Enterococcus faecalis Complete 02/08/25 20:11 Blood Blood Culture - Final NO GROWTH AFTER 5 DAYS OF INCUBATION. Complete 02/03/25 00:50 Nose MRSA Screen - Final Complete Problem List/Assessment/Plan Problem List/Assessment/Plan Acute metabolic encephalopathy Septic shock due to UTI with a Enterococcus faecalis and VRE Recent sepsis with a wound infection due to Pseudomonas aeruginosa MDRO Morbid obesity Bed-bound Type 2 diabetes Acute kidney injury Left hydronephrosis Horseshoe kidney Status post ureteral stent Chronic anemia Hyponatremia Atrial fibrillation Heart failure with preserved ejection fraction Plan Ongoing since I have infection as of now Stool occult blood for possible GI bleed due to given anemia GI consult placed Discontinued linezolid as no active infection is noted. Renal ultrasound shows no active infection, abscesses. Please discuss with ID before reintroducing antibiotics. Referral to nephro for dialysis Keep map greater than 65. If there is still concern for UTI change Hook's suspect leukocytosis is due to hydrocortisone use restarted on bumex ggt, continue to recommend to not overdiurese patient, patient has evidence of intravascular depletion, resulting in naseem and hypotension. albumin as needed , defer to primary team Plan discussed with Dr. Otilia Adler Infectious Disease we will continue to follow up the patient. Thank you. Plan discussed with: Patient, Son Dietary Evaluation Review Comments: 1. CCHO-60 2 gNa diet w 45g proein restriction 2. Try Devin for wound healing 3. Wt management 4. F/U with nephrology and updated lab values Expected Outcomes/Goals: Less uremic syndrome, controlled DM CC Plasma Assessment Blood Product Administration S: [id number] GREGG GALLOWAY RESIDENT Feb 20, 2025 15:52
[2025-02-20 18:37] LABS: Hematocrit 26.8 % (36.0-46.0); Hemoglobin 8.8 g/dL (12.2-16.2)
--- NOTE | 2025-02-20 21:05 | DVHPN2 ---
Progress Note Date Seen: Feb 20, 2025 Medical Necessity Reason Pt with a Central, PICC or Fol: Yes The following are medically ne: Central Line, Hook Catheter Subjective Patient reports: Other (events noted ,upgraded to icu) Review of Systems: Deferred Objective vital signs Vital Sign Date Time Temp Pulse Resp B/P (MAP) Pulse Ox O2 Delivery O2 Flow Rate FiO2 02/20/25 20:00 97.5 78 16 106/33 (57) 95 97.5 02/20/25 18:25 Room Air* 0 21 Total Intake and Output 02/19/25 02/19/25 02/20/25 14:59 22:59 06:59 Intake Total 712 ml 320 ml 587 ml Output Total 70 ml 50 ml Balance 712 ml 250 ml 537 ml medications Current Medications Medications Dose Ordered Sig/Taran Route Start Time Stop Time Status Last Admin Dose Admin Ondansetron HCl 4 mg Q4HP PRN IV 01/31/25 19:30 02/14/25 07:39 4 MG Acetaminophen 650 mg Q6HP PRN PO 01/31/25 19:30 02/14/25 11:29 650 MG Nitroglycerin 0.4 mg Q5MINP PRN SL 01/31/25 19:30 Carbidopa/Levodopa 2 tab HS PO 01/31/25 22:00 02/19/25 21:34 2 TAB Digoxin 125 mcg DAILY IV 02/02/25 10:00 02/20/25 09:54 125 MCG Diagnostic Test (Pha) 1 strip ACHS 02/03/25 17:00 02/20/25 16:45 1 STRIP Insulin Human Regular ACHS SC 02/03/25 17:00 Dextrose 50 ml UD PRN IV 02/03/25 16:45 02/11/25 06:54 50 ML Levothyroxine Sodium 100 mcg QAM@0600 PO 02/08/25 06:00 02/20/25 06:21 100 MCG Patient Own Medication 160 mg DAILY IV 02/09/25 10:00 UNV Patient Own Medication 1 g Q8H IV 02/08/25 12:30 UNV Clotrimazole 1 applic DAILY TOP 02/12/25 10:00 02/20/25 10:00 1 APPLIC Patient Own Medication 1 DAILY TOP 02/12/25 10:00 02/20/25 10:00 1 Enoxaparin Sodium 40 mg BID SC 02/12/25 22:00 02/20/25 09:53 40 MG Budesonide 0.5 mg BID NEB 02/13/25 10:00 02/20/25 18:25 0.5 MG Betamethasone Dipropion Augmented 1 applic DAILY TOP 02/14/25 13:30 02/20/25 10:00 1 APPLIC Albuterol 2.5 mg Q6HR NEB 02/14/25 18:00 02/20/25 18:25 2.5 MG Norepinephrine Bitartrate 250 ml @ 3.75 mls/hr Q24H IV 02/14/25 19:00 02/20/25 13:45 3.75 MLS/HR Fluticasone Propionate 100 mcg DAILY EACHNOSTRI 02/17/25 16:00 Cancel Albumin Human 100 ml @ 100 mls/hr Q8H IV 02/19/25 11:45 02/21/25 04:44 02/20/25 19:51 100 MLS/HR Bumetanide 25 mg/ Miscellaneous 100 ml @ 4 mls/hr Q24H IV 02/19/25 12:15 02/20/25 13:54 4 MLS/HR Lactulose 30 ml Q6HPRN PRN PO 02/19/25 14:30 Enteral Nutritional Formula 1,000 ml 60ML/HR GT 02/19/25 16:15 02/19/25 19:50 1,000 ML Sucralfate 2 gm BID@0600,2200 NG 02/19/25 22:00 02/20/25 06:21 2 GM Examination: GENERAL:Abnormal, LUNGS:Abnormal, ABDOMEN:Abnormal, MSK:Abnormal, SKIN:Abnormal, NEURO:Abnormal laboratory and microbiology Laboratory Tests 02/20/25 17:57 02/20/25 05:10 Test 02/20/25 05:10 Range/Units Serum Glucose 110 H 74-106 mg/dL Microbiology Date/Time Source Procedure Growth Status 02/08/25 22:15 Urine - Hook Port Urine Culture - Final Enterococcus faecalis Complete 02/08/25 20:11 Blood Blood Culture - Final NO GROWTH AFTER 5 DAYS OF INCUBATION. 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 CCHO-60 2 gNa diet w 45g proein restriction 2. Try Devin for wound healing 3. Wt management 4. F/U with nephrology and updated lab values Expected Outcomes/Goals: Less uremic syndrome, controlled DM Critical Care Time (mins): 48 CC Plasma Assessment Blood Product Administration S: [id number] SOCRATES POZO MD Feb 20, 2025 21:05
--- NOTE | 2025-02-20 22:18 | DVHPN2 ---
[facility] DOS: 02/20/25 Patient seen and examined at bedside. Breathing on room air. Overnight events reviewed. HPI: An 79-year-old woman with PMHx of CHF, chronic kidney disease, diabetes mellitus, hypertension, AFib, thyroid disease and anemia who presented to ED on 02/01/25 for evaluation of altered mental status. Patient was recently discharged after being treated for sepsis. Patient was acting lethargic and altered on day prior to presentation, therefore family brought her in for further evaluation. Patient was lethargic, oriented times two on day of presentation. No unilateral weakness noted or slurred speech. No cardiac or respiratory symptoms. Patient was admitted for further care. Pulmonary consultation is requested for evaluation and management d/t pleural effusions. Past Medical History CHF, chronic kidney disease, diabetes mellitus, hypertension, thyroid, anemia, AFib Past Surgical History Tonsillectomy Family History Noncontributory Social History No smoking, alcohol or illicit drug use. Medications: Reviewed. Allergies: Penicillins (Unverified Allergy, Severe, 03/16/15) Sulfa Antibiotics (Unverified Allergy, Severe, 03/16/15) Morphine (Verified Allergy, Intermediate, ALTERED, 01/31/18) Ceftriaxone (Verified Allergy, Unknown, 01/31/18) Reviewed: Care Plan, H&P, Labs, Medications, Previous Orders, Radiology Changes from previous H/P or p: No Changes Objective Vitals Vital Signs Date Time Temp Pulse Resp B/P (MAP) Pulse Ox O2 Delivery O2 Flow Rate FiO2 02/20/25 20:00 97.5 78 16 106/33 (57) 95 97.5 02/20/25 18:25 Room Air* 0 21 Intake/Output Intake and Output 02/20/25 06:59 Intake Total 1619 ml Output Total 120 ml Balance 1499 ml Intake Oral 0 ml IV Total 864 ml Tube Feeding 155 ml Blood Product 300 ml Other 300 ml Output Urine Total 120 ml # Bowel Movements 1 General Appearance: Alert, Other (Disoriented) HEENT: Atraumatic, PERRLA, EOMI Lungs: Clear to auscultation, Other (Decreased air movement bilaterally. No wheezing. No rhonchi) Cardiovascular: Regular rate, Normal S1, Normal S2 Abdomen: Normal bowel sounds, Soft, No tenderness Musculoskeletal: Normal sensory function, Normal motor function Extremities: Other (2+ edema bilaterally in the lower extremities) Neuro: Strength at 5/5 X4 ext, Cranial nerves 3-12 NL Skin: Significant Lesion, Dry, Intact, Warm Psych/Mental Status: Mental status NL, Mood NL Medications Current Medications Medications Dose Ordered Sig/Taran Route Start Time Stop Time Status Last Admin Dose Admin Ondansetron HCl 4 mg Q4HP PRN IV 01/31/25 19:30 02/14/25 07:39 4 MG Acetaminophen 650 mg Q6HP PRN PO 01/31/25 19:30 02/14/25 11:29 650 MG Nitroglycerin 0.4 mg Q5MINP PRN SL 01/31/25 19:30 Carbidopa/Levodopa 2 tab HS PO 01/31/25 22:00 02/19/25 21:34 2 TAB Digoxin 125 mcg DAILY IV 02/02/25 10:00 02/20/25 09:54 125 MCG Diagnostic Test (Pha) 1 strip ACHS 02/03/25 17:00 02/20/25 16:45 1 STRIP Insulin Human Regular ACHS SC 02/03/25 17:00 Dextrose 50 ml UD PRN IV 02/03/25 16:45 02/11/25 06:54 50 ML Levothyroxine Sodium 100 mcg QAM@0600 PO 02/08/25 06:00 02/20/25 06:21 100 MCG Patient Own Medication 160 mg DAILY IV 02/09/25 10:00 UNV Patient Own Medication 1 g Q8H IV 02/08/25 12:30 UNV Clotrimazole 1 applic DAILY TOP 02/12/25 10:00 02/20/25 10:00 1 APPLIC Patient Own Medication 1 DAILY TOP 02/12/25 10:00 02/20/25 10:00 1 Enoxaparin Sodium 40 mg BID SC 02/12/25 22:00 02/20/25 09:53 40 MG Budesonide 0.5 mg BID NEB 02/13/25 10:00 02/20/25 18:25 0.5 MG Betamethasone Dipropion Augmented 1 applic DAILY TOP 02/14/25 13:30 02/20/25 10:00 1 APPLIC Albuterol 2.5 mg Q6HR NEB 02/14/25 18:00 02/20/25 18:25 2.5 MG Norepinephrine Bitartrate 250 ml @ 3.75 mls/hr Q24H IV 02/14/25 19:00 02/20/25 13:45 3.75 MLS/HR Fluticasone Propionate 100 mcg DAILY EACHNOSTRI 02/17/25 16:00 Cancel Albumin Human 100 ml @ 100 mls/hr Q8H IV 02/19/25 11:45 02/21/25 04:44 02/20/25 19:51 100 MLS/HR Bumetanide 25 mg/ Miscellaneous 100 ml @ 4 mls/hr Q24H IV 02/19/25 12:15 02/20/25 13:54 4 MLS/HR Lactulose 30 ml Q6HPRN PRN PO 02/19/25 14:30 Enteral Nutritional Formula 1,000 ml 60ML/HR GT 02/19/25 16:15 02/19/25 19:50 1,000 ML Sucralfate 2 gm BID@0600,2200 NG 02/19/25 22:00 02/20/25 06:21 2 GM Laboratory Results Laboratory Tests 02/20/25 05:10 02/20/25 17:57 Chemistry Test 02/20/25 05:10 Albumin 3.6 g/dL (3.2-4.8) Calcium Level 9.2 mg/dL (8.7-10.4) Total Protein 5.2 g/dL (5.7-8.2) L LFT Test 02/20/25 05:10 Alanine Aminotransferase (ALT) < 9 U/L (7-40) Alkaline Phosphatase 66 U/L (46-116) Aspartate Amino Transferase (AST) 27 U/L (13-40) Total Bilirubin 0.5 mg/dL (0.2-1.0) Urinalysis Test 01/31/25 16:30 02/08/25 11:45 Urine Hyaline Casts Few /lpf (0 - 2) Urine Mucus Few (None Seen) Urine Color Yellow (Yellow) Urine Clarity Cloudy (Clear) H Urine pH 5.5 (5.0-9.0) Urine Specific Carver 1.013 (1.001-1.035) Urine Protein 1+ (Negative) H Urine Ketones Negative (Negative) Urine Blood 1+ /uL (Negative) H Urine Nitrite Negative (Negative) Urine Bilirubin Negative (Negative) Urine Urobilinogen Normal mg/dL (Negative) Urine Leukocyte Esterase 3+ /uL (Negative) Urine RBC 110 /hpf (0 - 4) Urine WBC Clumps Present /hpf (None Seen) Urine Microscopic WBC 1269 /HPF (0-5) H Urine Squamous Epithelial Cells Few /hpf (<5) Urine Bacteria Few /hpf (None Seen) H Urine Yeast (Budding) Loaded /hpf (None Seen) Urine Glucose Normal mg/dL (Normal) Microbiology Microbiology Date/Time Source Procedure Growth Status 02/08/25 22:15 Urine - Hook Port Urine Culture - Final Enterococcus faecalis Complete 02/08/25 20:11 Blood Blood Culture - Final NO GROWTH AFTER 5 DAYS OF INCUBATION. Complete 02/03/25 00:50 Nose MRSA Screen - Final Complete Assessment/Plan Assessment/Plan Impression: Acute metabolic encephalopathy Septic shock due to UTI Morbid obesity, BMI 42.3 Snoring, likely ARPAN Urinary tract infection Congestive heart failure (HFpEF) Hyponatremia Pleural effusions Atelectasis Events: Breathing on room air Supplemental oxygen PRN Tube feeds via NG tube for nutrition. Continue bronchodilators Continue Pulmicort Continue antibiotics ID recommendations appreciated On albumin HOB elevation Aspiration precautions. Plan for 1 unit PRBC transfusion Monitor hemoglobin Continue IV iron supplementation Monitor hemodynamics Start pressors if SBP is below 90 mmHg Continue Bumex drip for diuresis Monitor renal function - BUN and Cr trending up Poor urine output Monitor electrolytes. Supplement as necessary. Follow up Nephrology recommendations Continue Lovenox BID for DVT ppx. Note, patient with poor prognosis Follow up Neurology recs Labs and imaging reviewed. Rest of plan as noted below. Plan: Supplemental oxygen PRN Titrate to keep O2 sats above 92%. 02/14 - Patient underwent femoral central line placement for administration of pressors as unable to place IJ or SCV line - unable to thread line. See separate procedure note for details. Bronchodilators PRN. Continue antibiotics Incentive spirometry Pressors as necessary for hemodynamic support Titrate to keep mean arterial pressure greater than 65 mmHg. Follow up Cardiology recs Diurese to euvolemia Monitor renal function. Monitor electrolytes. Supplement as necessary. Monitor ins and outs. DVT prophylaxis - Lovenox. Prognosis: Poor given patient's multiple co-morbidities. Rest of plan per hospitalist and other consultants. Thank you, Dr. Castaneda, for allowing me to participate in this patient's care. Further recommendations will depend on the patient's clinical course. Please do not hesitate to contact me if you have any questions or concerns. This medical document was created using an electronic medical record system with [employer] computerized dictation system. Although these documentations are being carefully reviewed, there may still be some phonetic and typographical changes. The errors are purely typographical, due to imperfection on the software program, and do not reflect any compromise in the patient's medical care. Plan discussed with: Other (FABIO Castillo) Visit Coding Pulmonary Billing Provider: BENITO WILLARD MD Date of Service if different f: Feb 20, 2025 Common Visit Codes: [id number] INP/OBS CARE(HIGH), [id number] CARE 30-74 MIN BENITO WILLARD MD Feb 20, 2025 22:18
[2025-02-21] VITALS (102 sets, daily range): BP systolic 72–144; BP diastolic 18–100; PULSE 63–94; RESP 12–30; TEMP 94.4–97.6; O2SAT 88–100
[2025-02-21 05:00] LABS: Hematocrit 27.1 % (36.0-46.0); Hemoglobin 8.9 g/dL (12.2-16.2); Mean Corpuscular Hemoglobin 28.4 pg (28.0-32.0); Mean Corpuscular Volume 86.6 fL (80.0-100.0)
[2025-02-21 05:26] LABS: Albumin 3.6 g/dL (3.2-4.8); Anion Gap 16 (5-15); BUN/Creatinine Ratio 35.0 (10.0-20.0); Bilirubin, Total 0.3 mg/dL (0.2-1.0); Calcium 9.1 mg/dL (8.7-10.4); Carbon Dioxide 20 mmol/L (20-31); Chloride 103 mmol/L (98-107); Sodium 139 mmol/L (136-145)
[2025-02-21 05:31] LABS: Glucose 112 mg/dL (74-106); Potassium 3.5 mmol/L (3.5-5.1)
[2025-02-21 05:32] LABS: Alanine Aminotransferase < 9 U/L (7-40); Alkaline Phosphatase 154 U/L (46-116); Total Protein 5.2 g/dL (5.7-8.2)
[2025-02-21 05:33] LABS: Blood Urea Nitrogen 82 mg/dL (9-23)
[2025-02-21 06:35] LABS: Nucleated Red Blood Cells % 7.0 %; Total Cells Counted 100.0 (100)
--- NOTE | 2025-02-21 16:20 | DVHCONRES ---
Date Seen: Feb 21, 2025 Resident Creating Document: MAXWELL GODOY RESIDENT Referring Physician Dr. Damico Reason for Consultation Possible GI bleed History of Present Illness Patient is an 79-year-old female with past medical history of CHF, CKD, type 2 diabetes, hypertension, thyroid disease, anemia, atrial fibrillation who initially presented to the ER for altered mental status and generalized weakness after being discharged from the hospital 3 days prior for sepsis. Today is day 27 of hospitalization, GI team has been consulted for a possible GI bleed. Patient is seen and examined at the bedside, daughter also present at bedside. Patient in distress, AO times 1-2, baseline is AO times 3-4. Two bowel movements today brown in color. Hypoactive bowel sounds. NG-tube residual 25 cc dark brown. Patient also has extreme oral dryness with friable oral mucosa that bleeds upon completing oral hygiene. Past Medical History CHF, CKD, type 2 diabetes, hypertension, thyroid disease, anemia, atrial fibrillation Family History: Cancer G8 MOTHER G8 SISTER Chronic obstructive lung disease (situation) G8 FATHER Family history: Cardiovascular disease G8 MOTHER G8 FATHER Family history: Hypertension G8 MOTHER G8 FATHER Suicide G8 FATHER Allergies: Coded Allergies: Penicillins (Unverified Allergy, Severe, 03/16/15) Sulfa Antibiotics (Unverified Allergy, Severe, 03/16/15) Morphine (Verified Allergy, Intermediate, ALTERED, 01/31/18) PER PATIENT AND HER DAUGHTER SHE CAN NOT HAVE Ceftriaxone (Verified Allergy, Unknown, 01/31/18) COUGH AND CHILLS Home Meds Reported Medications Aspirin (Aspirin Low Dose) 81 Mg Tab, 1 TAB PO DAILY for 90 Days, #90 02/14/25 Levodopa W/Carbidopa (Carbidopa/Levodopa) 1 Tab Tab, 2 TAB PO DAILY for 90 Days, #180 [CARBIDOPA/LEVODOPA 10/100 MG TAB] 02/14/25 Sotalol Hcl (Sotalol Hcl) 80 Mg Tab, 1 TAB PO DAILY for 90 Days, #90 02/14/25 Bumetanide (Bumetanide) 2 Mg Tab, 1 TAB PO DAILY for 90 Days, #90 02/14/25 Potassium Chloride (Potassium Chloride ER) 20 Meq Tab, 1 TAB PO BID for 90 Days, #180 02/14/25 Apixaban Base (ELIQUIS) 2.5 Mg Tab, 1 TAB PO BID for 90 Days, #180 02/14/25 Clotrimazole W/ Betamethasone (Clotrimazole/Betamethason 1-0.05 %) 1 Cre Cre, 1 APPLIC TOP BID for 60 Days, #120 02/14/25 Metolazone (Metolazone) 5 Mg Tab, 3 TAB PO QWEEKLY for 84 Days, #36 02/14/25 Levothyroxine Sodium (Levothyroxine Sodium) 75 Mcg Tab, 1 TAB PO DAILY for 90 Days, #90 02/14/25 Ropinirole Hydrochloride (Ropinirole Hcl) 1 Mg Tab, 1 TAB PO DAILY for 90 Days, #90 02/14/25 Linaclotide Base (LINZESS) 290 Mcg Cap, 1 CAP PO DAILY for 30 Days, #30 01/03/25 Ondansetron HCl (Ondansetron Hydrochloride) 4 Mg Tab, 1 TAB PO Q8HPRN 04/25/24 Esomeprazole Magnesium (Esomeprazole Magnesium Dr) 40 Mg Cap, 40 MG PO DAILY, CAP 11/03/23 Acetaminophen (8 Hour Arthritis Pain Rel) 650 Mg Tab, 650 MG PO TID for ARTHRITIS 01/23/22 Albuterol Sulfate (Albuterol Sulfate) 0.083 % Neb, 1 VIAL NEB Q6HR PRN for SHORTNESS OF BREATH 02/05/20 Fluticasone Propionate (Nasal) (Flonase Allergy Relief) 50 Mcg/Act Spr, 1 SPR NA BID PRN for ALLERGIES 02/05/20 Apremilast Base (Otezla) 30 Mg Tab, 1 TAB PO BID for ARTHRITIS 03/28/19 Tramadol HCl (Tramadol Hydrochloride) 50 Mg Tab, 1 TAB PO QID PRN for MODERATE PAIN (4-6 PAIN SCALE) 10/30/18 Review of Systems Accurate review of systems could not be completed as patient in distress and A&O times 1-2. Vital Signs Vital Signs Date Time Temp Pulse Resp B/P (MAP) Pulse Ox O2 Delivery O2 Flow Rate FiO2 02/21/25 11:55 78 21 100 02/21/25 11:49 Mask 6.0 02/21/25 11:49 50 02/21/25 10:51 82/21 02/21/25 04:00 97.0 97.0 Physical Exam General Appearance: Resting in bed with eyes closed. In [id number] d istress. Pulmonary/Respiratory: Equal and bilateral air entry, wheezing Cardiovascular/Chest: Regular rate and rhythm. No murmurs. No JVD. Peripheral Pulses: 2+ Radial (R). 2+ Radial (L). 2+ Pedal (R). 2+ Pedal (L) Abdominal Exam: Hypoactive bowel sounds. Soft. normal abdomen, no visible veins, Nontender. No hepatospenomegaly. No masses Skin Exam: Generalized edema Labs/Diagnostic Data Labs Test 02/21/25 12:08 02/21/25 04:41 02/19/25 20:50 02/19/25 05:21 Range/Units POC Glucose 101 70-106 mg/dl White Blood Count 14.8 H 4.4-10.8 10^3/uL Red Blood Count 3.13 L 4.0-5.20 10^6/uL Hemoglobin 8.9 L 12.2-16.2 g/dL Hematocrit 27.1 L 36.0-46.0 % Mean Corpuscular Volume 86.6 80.0-100.0 fL Mean Corpuscular Hemoglobin 28.4 28.0-32.0 pg Mean Corpuscular Hemoglobin Concent 32.9 32.0-36.0 g/dL Red Cell Distribution Width 18.0 H 11.8-14.3 % Platelet Count 131 L 140-450 10^3/uL Mean Platelet Volume 8.3 6.9-10.8 fL Neutrophils (%) (Auto) 37.0-80.0 % Lymphocytes (%) (Auto) 10.0-50.0 % Monocytes (%) (Auto) 0.0-12.0 % Basophils (%) (Auto) 0.0-2.0 % Neutrophils # (Auto) 1.6-8.6 10 ^3/uL Lymphocytes # (Auto) 0.4-5.4 10 ^3/uL Monocytes # (Auto) 0-1.3 10 ^3/uL Differential Total Cells Counted 100.0 100 Neutrophils % (Manual) 86 H 37.0-80.0 Band Neutrophils % (Manual) 1 Lymphocytes % (Manual) 9 L 10.0-50.0 Monocytes % (Manual) 3 0-12 Eosinophils % (Manual) 0 0-7 Basophils % (Manual) 0 0.0-2.0 Metamyelocytes % (manual) 1 Myelocytes % (Manual) 0 Promyelocytes % (Manual) 0 Blast Cells % (Manual) 0 Nucleated Red Blood Cells 7.0 % Reactive Lymphocytes 0 Platelet Estimate Decreased Sodium Level 139 136-145 mmol/L Potassium Level 3.5 3.5-5.1 mmol/L Chloride Level 103 98-107 mmol/L Carbon Dioxide Level 20 20-31 mmol/L Anion Gap 16 H 5-15 Blood Urea Nitrogen 82 *H 9-23 mg/dL Creatinine 2.34 H 0.550-1.02 mg/dL Glomerular Filtration Rate Calc 20 >90 mL/min BUN/Creatinine Ratio 35.0 H 10.0-20.0 Serum Glucose 112 H 74-106 mg/dL Calcium Level 9.1 8.7-10.4 mg/dL Total Bilirubin 0.3 0.2-1.0 mg/dL Aspartate Amino Transferase (AST) 39 13-40 U/L Alanine Aminotransferase (ALT) < 9 7-40 U/L Alkaline Phosphatase 154 H 46-116 U/L Total Protein 5.2 L 5.7-8.2 g/dL Albumin 3.6 3.2-4.8 g/dL Gastric Fluid pH 1.0 Gastric Fluid Occult Blood Positive Negative Phosphorus Level 3.7 2.4-5.1 mg/dL Magnesium Level 2.2 1.6-2.6 mg/dL Test 02/19/25 04:14 02/18/25 09:30 02/16/25 15:09 02/16/25 11:44 Range/Units Eosinophils (%) (Auto) 0.5 0.0-7.0 % Eosinophils # (Auto) 0.1 0-0.8 10 ^3/uL Basophils # (Auto) 0 0-0.2 10 ^3/uL Lactic Acid Level 0.8 0.4-2.0 mmol/L Blood Gas Specimen Type Arterial Blood Gas Sample Site Right radial Blood Gas Patient Temperature 37.0 Arterial Blood Date Drawn [id number] Arterial Blood pH 7.461 H 7.350-7.450 Arterial Blood Partial Pressure CO2 25.7 L 32.0-45.0 mmHg Arterial Blood Partial Pressure O2 63.0 L 83.0-108.0 mmHg Arterial Blood HCO3 17.9 L 21.0-28.0 mmol/L Arterial Blood Oxygen Saturation 91.4 L 94.0-98.0 % Arterial Blood Base Excess -5.0 L -2.0-3.0 mmol/L Arterial Blood Oxyhemoglobin 90.7 L 94.0-98.0 % Arterial Blood Carboxyhemoglobin 0.4 L 0.5-1.5 % Arterial Blood Methemoglobin 0.4 0.0-1.5 % [place] Test Yes Blood Gas Total Hemoglobin 8.50 L 12.0-16.0 g/dL Blood Gas Modality Room air FiO2 % 21.0 Test 02/16/25 05:07 02/13/25 13:19 02/13/25 04:44 02/11/25 10:30 Range/Units B-Type Natriuretic Peptide 647.54 0-100 pg/mL Vitamin B12 Level 684 211-911 pg/mL Ferritin 140.7 10-291 ng/mL Iron Level 18 L 50-170 ug/dL Total Iron Binding Capacity 189 L 250-425 ug/dL Percent Iron Saturation 9.5 L 15-50 % Stool Occult Blood Negative Negative Test 02/08/25 11:45 02/07/25 04:20 02/05/25 04:51 02/03/25 21:00 Range/Units Urine Color Yellow Yellow Urine Clarity Cloudy H Clear Urine pH 5.5 5.0-9.0 Urine Specific [place] 1.013 1.001-1.035 Urine Protein 1+ H Negative Urine Ketones Negative Negative Urine Blood 1+ H Negative /uL Urine Nitrite Negative Negative Urine Bilirubin Negative Negative Urine Urobilinogen Normal Negative mg/dL Urine Leukocyte Esterase 3+ Negative /uL Urine RBC 110 0 - 4 /hpf Urine WBC Clumps Present None Seen /hpf Urine Microscopic WBC 1269 H 0-5 /HPF Urine Squamous Epithelial Cells Few <5 /hpf Urine Bacteria Few H None Seen /hpf Urine Yeast (Budding) Loaded None Seen /hpf Urine Glucose Normal Normal mg/dL Random Gentamicin Level 5.2 H 0-5 ug/mL Digoxin Level 0.14 L 0.8-2 ng/mL Gentamicin Level Trough 7.5 *H 0.5-1.5 ug/mL Test 02/02/25 03:45 01/31/25 16:30 01/31/25 11:10 Range/Units Prothrombin Time 11.2 9.3-11.8 sec Prothrombin Time INR 1.06 0.9-1.15 Activated Partial Thromboplast Time 35.2 H 24.5-34.5 SEC Urine Hyaline Casts Few 0 - 2 /lpf Urine Mucus Few None Seen Troponin I High Sensitivity 7 </=34 ng/L Microbiology Date/Time Source Procedure Growth Status 02/08/25 22:15 Urine - Hook Port Urine Culture - Final Enterococcus faecalis Complete 02/08/25 20:11 Blood Blood Culture - Final NO GROWTH AFTER 5 DAYS OF INCUBATION. Complete 02/03/25 00:50 Nose MRSA Screen - Final Complete Assessment Possible upper GI bleed Stress-induced ulcer and/or gastritis History of horseshoe kidney CHANTAL/VMN on CKD? Sepsis due to UTI with Enterococcus faecalis and VRE Septic shock Bed-bound Acute on chronic diastolic heart failure Plan: Stool occult blood negative, pending repeat stool occult blood Continue current supportive care IV Protonix 40 mg b.i.d. Carafate 1 g b.i.d. Continue antibiotics Thank you so much for the opportunity to consult on your patient. GI team will follow the patient. In case of any questions or concerns please feel free to reach out. Plan discussed with Dr. Lopez Plan discussed with: Daughter, Other (RN) MAXWELL GODOY RESIDENT Feb 21, 2025 16:20
--- NOTE | 2025-02-21 16:25 | DVHPN2 ---
Progress Note - Dictate Date Seen: Feb 21, 2025 Medical Necessity Reason Pt with a Central, PICC or Fol: Yes The following are medically ne: Central Line, Hook Catheter Subjective SHE BECAME UNRESPONSIVE BLOOD SUGAR 166 SHE WAS MILDLY HYPOTENSIVE HAD LEFT SIGHT ARM MOVEMENT LASTED ABOUT 10 MINUTES TOTAL/ NO CLEAR POST ICTAL PERIOD PRESENTATION CONSISTENT WITH METABOLIC SYNDROME/ INFECTION ESPECIALLY WITH HER RECENT ADMISSION FOR SEPSIS/ BACTEREMIA RECENT HX OF HYPOTENSION POSITIVE BLOOD CX STAPH PRODUCTIVE COUGH HYPOXIA SEVERE ANEMIA HX OF BLEEDING DIATHESIS NOW BEING TRANSFUSE PMH; HEMATURIA HX OF ORGANIC HD S/P TAVR HX OF AV STENOSIS HTN HFpEF DIASTOLIC DYSFUNCTION AFIB ON SOTALOL HYPERCOAGULABLE STATE HX OF DVT MORBID OBESITY 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 ANEMIA HYPONATREMIA DECUB STAGE II MULTIPLE ORGANISM PSEUDOMONAS vital signs Vital Sign Date Time Temp Pulse Resp B/P (MAP) Pulse Ox O2 Delivery O2 Flow Rate FiO2 02/21/25 16:00 82 02/21/25 11:55 21 100 02/21/25 11:49 Mask 6.0 02/21/25 11:49 50 02/21/25 10:51 82/21 02/21/25 04:00 97.0 97.0 Total Intake and Output 02/20/25 02/20/25 02/21/25 15:00 23:00 07:00 Intake Total 143.25 ml 1410.0 ml 785.75 ml Output Total 10 ml 50 ml Balance 143.25 ml 1400.0 ml 735.75 ml medications Current Medications Medications Dose Ordered Sig/Taran Route Start Time Stop Time Status Last Admin Dose Admin Ondansetron HCl 4 mg Q4HP PRN IV 01/31/25 19:30 02/14/25 07:39 4 MG Acetaminophen 650 mg Q6HP PRN PO 01/31/25 19:30 02/14/25 11:29 650 MG Nitroglycerin 0.4 mg Q5MINP PRN SL 01/31/25 19:30 Carbidopa/Levodopa 2 tab HS PO 01/31/25 22:00 02/20/25 22:26 2 TAB Digoxin 125 mcg DAILY IV 02/02/25 10:00 02/21/25 10:33 125 MCG Diagnostic Test (Pha) 1 strip ACHS 02/03/25 17:00 02/21/25 05:56 1 STRIP Insulin Human Regular ACHS SC 02/03/25 17:00 02/20/25 22:55 2 UNITS Dextrose 50 ml UD PRN IV 02/03/25 16:45 02/11/25 06:54 50 ML Levothyroxine Sodium 100 mcg QAM@0600 PO 02/08/25 06:00 02/21/25 05:56 100 MCG Patient Own Medication 160 mg DAILY IV 02/09/25 10:00 UNV Patient Own Medication 1 g Q8H IV 02/08/25 12:30 UNV Clotrimazole 1 applic DAILY TOP 02/12/25 10:00 02/21/25 10:42 1 APPLIC Patient Own Medication 1 DAILY TOP 02/12/25 10:00 02/21/25 10:39 1 Enoxaparin Sodium 40 mg BID SC 02/12/25 22:00 02/21/25 10:33 40 MG Budesonide 0.5 mg BID NEB 02/13/25 10:00 02/21/25 06:12 0.5 MG Betamethasone Dipropion Augmented 1 applic DAILY TOP 02/14/25 13:30 02/21/25 10:42 1 APPLIC Albuterol 2.5 mg Q6HR NEB 02/14/25 18:00 02/21/25 11:49 2.5 MG Norepinephrine Bitartrate 250 ml @ 3.75 mls/hr Q24H IV 02/14/25 19:00 02/21/25 01:47 3.75 MLS/HR Fluticasone Propionate 100 mcg DAILY EACHNOSTRI 02/17/25 16:00 Cancel Lactulose 30 ml Q6HPRN PRN PO 02/19/25 14:30 Enteral Nutritional Formula 1,000 ml 60ML/HR GT 02/19/25 16:15 02/19/25 19:50 1,000 ML Sucralfate 2 gm BID@0600,2200 NG 02/19/25 22:00 02/21/25 05:56 2 GM Pantoprazole Sodium 40 mg BID IV 02/21/25 22:00 laboratory and microbiology Laboratory Tests 02/21/25 04:41 Test 02/21/25 04:41 Range/Units Serum Glucose 112 H 74-106 mg/dL Problem List SHE BECAME UNRESPONSIVE BLOOD SUGAR 166 HYPOTENSIVE HAD LEFT SIGHT ARM MOVEMENT LASTED ABOUT 10 MINUTES TOTAL/ NO CLEAR POST ICTAL PERIOD PRESENTATION CONSISTENT WITH METABOLIC SYNDROME/ INFECTION ESPECIALLY WITH HER RECENT ADMISSION FOR SEPSIS/ BACTEREMIA RECENT HX OF HYPOTENSION POSITIVE BLOOD CX STAPH PRODUCTIVE COUGH HYPOXIA SEVERE ANEMIA HX OF BLEEDING DIATHESIS NOW BEING TRANSFUSE PMH; HEMATURIA HX OF ORGANIC HD S/P TAVR HX OF AV STENOSIS HTN HFpEF DIASTOLIC DYSFUNCTION AFIB ON SOTALOL HYPERCOAGULABLE STATE HX OF DVT MORBID OBESITY 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 ANEMIA HYPONATREMIA PSEUDOMONAS INFECTION Assessment/Plan ABX PRESSORS WOUND CARE TRIPLE LUMEN INSERTION DC LASIX LABS START DOPAMINE RENAL PERFUSION STOOL OCCULT BLOOD SECONDARY TO HIGH BUN / CR RATIO WILL RESTART LASIX IN AM 3% saline resume gent and meropenem DC ABOVE ABX TREATMENT FOR YEAST AND VRE ENTEROCOCCUS titrate off levo START FLORINEF DC FLORINEF STARTED ON MIDODRINE CORRECT K THE MOMENT FLORINEF WAS DISCONTINUED BP DROPPED NOW WBC GOING UP AGAIN BECAUSE OF CHANGE IN ABX ABG CT NEGATIVE OF HEAD CXR NEGATIVE TITRATE OFF STEROIDS TRANSFUSE 1 UNIT PRBC STRESS ULCERATION AND SECONDARY TO STEROID USE/ START CARAFATE PT UREMIC START DIALYSIS KAYE Dietary Evaluation Review Comments: 1. CCHO-60 2 gNa diet w 45g proein restriction 2. Try Devin for wound healing 3. Wt management 4. F/U with nephrology and updated lab values Expected Outcomes/Goals: Less uremic syndrome, controlled DM Plan discussed with: Patient, Daughter Critical Care Time(min): 35 CC Plasma Assessment Blood Product Administration S: [id number] MONTRELL RANKIN MD Feb 21, 2025 16:25
--- NOTE | 2025-02-21 16:53 | DVHPN2 ---
Progress Note Date Seen: Feb 21, 2025 Medical Necessity Reason Pt with a Central, PICC or Fol: Yes The following are medically ne: Central Line, Hook Catheter Subjective Patient reports: Other (Poor historian altered) Review of Systems: Deferred Objective vital signs Vital Sign Date Time Temp Pulse Resp B/P (MAP) Pulse Ox O2 Delivery O2 Flow Rate FiO2 02/21/25 16:00 82 02/21/25 11:55 21 100 02/21/25 11:49 Mask 6.0 02/21/25 11:49 50 02/21/25 10:51 82/21 02/21/25 04:00 97.0 97.0 Total Intake and Output 02/20/25 02/20/25 02/21/25 15:00 23:00 07:00 Intake Total 143.25 ml 1410.0 ml 785.75 ml Output Total 10 ml 50 ml Balance 143.25 ml 1400.0 ml 735.75 ml medications Current Medications Medications Dose Ordered Sig/Taran Route Start Time Stop Time Status Last Admin Dose Admin Ondansetron HCl 4 mg Q4HP PRN IV 01/31/25 19:30 02/14/25 07:39 4 MG Acetaminophen 650 mg Q6HP PRN PO 01/31/25 19:30 02/14/25 11:29 650 MG Nitroglycerin 0.4 mg Q5MINP PRN SL 01/31/25 19:30 Carbidopa/Levodopa 2 tab HS PO 01/31/25 22:00 02/20/25 22:26 2 TAB Digoxin 125 mcg DAILY IV 02/02/25 10:00 02/21/25 10:33 125 MCG Diagnostic Test (Pha) 1 strip ACHS 02/03/25 17:00 02/21/25 05:56 1 STRIP Insulin Human Regular ACHS SC 02/03/25 17:00 02/20/25 22:55 2 UNITS Dextrose 50 ml UD PRN IV 02/03/25 16:45 02/11/25 06:54 50 ML Levothyroxine Sodium 100 mcg QAM@0600 PO 02/08/25 06:00 02/21/25 05:56 100 MCG Patient Own Medication 160 mg DAILY IV 02/09/25 10:00 UNV Patient Own Medication 1 g Q8H IV 02/08/25 12:30 UNV Clotrimazole 1 applic DAILY TOP 02/12/25 10:00 02/21/25 10:42 1 APPLIC Patient Own Medication 1 DAILY TOP 02/12/25 10:00 02/21/25 10:39 1 Enoxaparin Sodium 40 mg BID SC 02/12/25 22:00 02/21/25 10:33 40 MG Budesonide 0.5 mg BID NEB 02/13/25 10:00 02/21/25 06:12 0.5 MG Betamethasone Dipropion Augmented 1 applic DAILY TOP 02/14/25 13:30 02/21/25 10:42 1 APPLIC Albuterol 2.5 mg Q6HR NEB 02/14/25 18:00 02/21/25 11:49 2.5 MG Norepinephrine Bitartrate 250 ml @ 3.75 mls/hr Q24H IV 02/14/25 19:00 02/21/25 01:47 3.75 MLS/HR Fluticasone Propionate 100 mcg DAILY EACHNOSTRI 02/17/25 16:00 Cancel Lactulose 30 ml Q6HPRN PRN PO 02/19/25 14:30 Enteral Nutritional Formula 1,000 ml 60ML/HR GT 02/19/25 16:15 02/19/25 19:50 1,000 ML Sucralfate 2 gm BID@0600,2200 NG 02/19/25 22:00 02/21/25 05:56 2 GM Pantoprazole Sodium 40 mg BID IV 02/21/25 22:00 Examination: GENERAL:Abnormal, LUNGS:Abnormal, MSK:Abnormal, NEURO:Abnormal laboratory and microbiology Laboratory Tests 02/21/25 04:41 Test 02/21/25 04:41 Range/Units Serum Glucose 112 H 74-106 mg/dL Microbiology Date/Time Source Procedure Growth Status 02/08/25 22:15 Urine - Hook Port Urine Culture - Final Enterococcus faecalis Complete 02/08/25 20:11 Blood Blood Culture - Final NO GROWTH AFTER 5 DAYS OF INCUBATION. Complete 02/03/25 00:50 Nose MRSA Screen - Final Complete Problem List/Assessment/Plan Problem List/Assessment/Plan Acute kidney injury hemodynamic mediated etiology in the setting of severe sepsis, hypotension Hyponatremia in the setting of anasarca Hypokalemia AFib acute diastolic heart failure Septic Shock Horseshoe kidney history of ureteral stent Status post TAVR Hypertension History of DVT Hypokalemia Recommendations Bumex drip 1 mg/hour--no response Patient anuric recommended PRINCIPAL PROCESS ENGINEER today however pt family did not agree yet as they would like to discuss with --advised RN to inform me as soon as decision is made after rounds---I have not received any consent from family this morning--I have informed the patient's daughter the delay in decision might affect patient care and the risks including needing intubation or code blue secondary to significant volume overload Later this evening patient family consented for dialysis Dialysis will be arranged tomorrow morning after catheter placement Plan discussed with: Other My Orders My Orders Orders - SOCRATES POZO MD Procedure Category Date Status Time Communication Order ORDERS 02/21/25 Transmitted 09:55 Communication Order ORDERS 02/21/25 Transmitted 12:58 Dietary Evaluation Review Comments: 1. CCHO-60 2 gNa diet w 45g proein restriction 2. Try Devin for wound healing 3. Wt management 4. F/U with nephrology and updated lab values Expected Outcomes/Goals: Less uremic syndrome, controlled DM Critical Care Time (mins): 50 CC Plasma Assessment Blood Product Administration S: [id number] SOCRATES POZO MD Feb 21, 2025 16:53
[2025-02-21] MEDS: HEPARIN 1,000 UNITS/ml 1ML VIAL IV ONE (18:22)
--- NOTE | 2025-02-21 18:59 | DVHNC2 ---
Procedure - Femoral large-bore Central Line Procedure Note INDICATION: Renal failure, requiring hemodialysis PROCEDURE ENTRY LEVEL MANAGER: Dr. Browne Ultrasound Used: Y CONSENT: Consent was obtained from patient's healthcare proxy prior to the procedure. Indications, risks, and benefits were explained at length. PROCEDURE SUMMARY: A time out was performed. My hands were washed immediately prior to the procedure. I wore a surgical cap, mask with protective eyewear, sterile gown and sterile gloves throughout the procedure. The RIGHT inguinal region was prepped using chlorhexidine scrub and draped in sterile fashion using a full drape and sterile probe cover and sterile gel employed. The femoral pulse was identified. Anesthesia was achieved using 1% lidocaine. Under ultrasound guidance and palpating the femoral pulse throughout the procedure, the introducer needle was inserted medial to the femoral artery, inferior to the inguinal crease and into the femoral vein. Venous blood was withdrawn. The syringe was removed and a guidewire was advanced into the introducer needle. A small incision was made at the skin surface with a scalpel and the introducer needle was exchanged for a dilator over the guidewire. After appropriate dilation was obtained, the dilator was exchanged over the wire for a double lumen large bore central venous catheter. The wire was removed and the catheter was sutured in place at 20 cm. A sterile Biopatch was placed over the catheter at the insertion site. The patient tolerated the procedure without any hemodynamic compromise. At time of procedure completion, all ports aspirated and flushed properly. Ultrasound image documenting the guidewire within the right femoral are placed in the patient's chart. Estimated blood loss is 5mL. 70048 (ultrasound guidance) 69771 (insertion of non-tunneled centrally inserted central venous catheter) Visit Coding Pulmonary Billing Provider: BENITO BROWEN MD Date of Service if different f: Feb 21, 2025 Common Visit Codes: PROCEDURE ONLY Procedure Codes: 94155-FFPQAR NON-TUNNEL CV CATH (54514 US Add On) BENITO BROWNE MD Feb 21, 2025 18:59
--- NOTE | 2025-02-21 21:40 | DVHPN2 ---
[facility] DOS: 02/21/25 Patient seen and examined at bedside. Breathing on room air. Overnight events reviewed. HPI: An 79-year-old woman with PMHx of CHF, chronic kidney disease, diabetes mellitus, hypertension, AFib, thyroid disease and anemia who presented to ED on 02/01/25 for evaluation of altered mental status. Patient was recently discharged after being treated for sepsis. Patient was acting lethargic and altered on day prior to presentation, therefore family brought her in for further evaluation. Patient was lethargic, oriented times two on day of presentation. No unilateral weakness noted or slurred speech. No cardiac or respiratory symptoms. Patient was admitted for further care. Pulmonary consultation is requested for evaluation and management d/t pleural effusions. Past Medical History CHF, chronic kidney disease, diabetes mellitus, hypertension, thyroid, anemia, AFib Past Surgical History Tonsillectomy Family History Noncontributory Social History No smoking, alcohol or illicit drug use. Medications: Reviewed. Allergies: Penicillins (Unverified Allergy, Severe, 03/16/15) Sulfa Antibiotics (Unverified Allergy, Severe, 03/16/15) Morphine (Verified Allergy, Intermediate, ALTERED, 01/31/18) Ceftriaxone (Verified Allergy, Unknown, 01/31/18) Reviewed: Care Plan, H&P, Labs, Medications, Previous Orders, Radiology Changes from previous H/P or p: No Changes Objective Vitals Vital Signs Date Time Temp Pulse Resp B/P (MAP) Pulse Ox O2 Delivery O2 Flow Rate FiO2 02/21/25 20:00 21 100 Simple Mask* 6 50 02/21/25 19:30 89 02/21/25 19:00 97.4 97.4 Intake/Output Intake and Output 02/21/25 07:00 Intake Total 2339.00 ml Output Total 60 ml Balance 2279.00 ml IV Total 701.00 ml Tube Feeding 1338 ml Blood Product 300 ml Output Urine Total 60 ml # Bowel Movements 4 General Appearance: Alert, Other (Disoriented) HEENT: Atraumatic, PERRLA, EOMI Lungs: Clear to auscultation, Other (Decreased air movement bilaterally. No wheezing. No rhonchi) Cardiovascular: Regular rate, Normal S1, Normal S2 Abdomen: Normal bowel sounds, Soft, No tenderness Musculoskeletal: Normal sensory function, Normal motor function Extremities: Other (2+ edema bilaterally in the lower extremities) Neuro: Strength at 5/5 X4 ext, Cranial nerves 3-12 NL Skin: Significant Lesion, Dry, Intact, Warm Psych/Mental Status: Mental status NL, Mood NL Medications Current Medications Medications Dose Ordered Sig/Taran Route Start Time Stop Time Status Last Admin Dose Admin Ondansetron HCl 4 mg Q4HP PRN IV 01/31/25 19:30 02/14/25 07:39 4 MG Acetaminophen 650 mg Q6HP PRN PO 01/31/25 19:30 02/14/25 11:29 650 MG Nitroglycerin 0.4 mg Q5MINP PRN SL 01/31/25 19:30 Carbidopa/Levodopa 2 tab HS PO 01/31/25 22:00 02/20/25 22:26 2 TAB Digoxin 125 mcg DAILY IV 02/02/25 10:00 02/21/25 10:33 125 MCG Diagnostic Test (Pha) 1 strip ACHS 02/03/25 17:00 02/21/25 17:00 1 STRIP Insulin Human Regular ACHS SC 02/03/25 17:00 02/20/25 22:55 2 UNITS Dextrose 50 ml UD PRN IV 02/03/25 16:45 02/11/25 06:54 50 ML Levothyroxine Sodium 100 mcg QAM@0600 PO 02/08/25 06:00 02/21/25 05:56 100 MCG Patient Own Medication 160 mg DAILY IV 02/09/25 10:00 UNV Patient Own Medication 1 g Q8H IV 02/08/25 12:30 UNV Clotrimazole 1 applic DAILY TOP 02/12/25 10:00 02/21/25 10:42 1 APPLIC Patient Own Medication 1 DAILY TOP 02/12/25 10:00 02/21/25 10:39 1 Enoxaparin Sodium 40 mg BID SC 02/12/25 22:00 02/21/25 10:33 40 MG Budesonide 0.5 mg BID NEB 02/13/25 10:00 02/21/25 18:52 0.5 MG Betamethasone Dipropion Augmented 1 applic DAILY TOP 02/14/25 13:30 02/21/25 10:42 1 APPLIC Albuterol 2.5 mg Q6HR NEB 02/14/25 18:00 02/21/25 18:52 2.5 MG Norepinephrine Bitartrate 250 ml @ 3.75 mls/hr Q24H IV 02/14/25 19:00 02/21/25 01:47 3.75 MLS/HR Fluticasone Propionate 100 mcg DAILY EACHNOSTRI 02/17/25 16:00 Cancel Lactulose 30 ml Q6HPRN PRN PO 02/19/25 14:30 Enteral Nutritional Formula 1,000 ml 60ML/HR GT 02/19/25 16:15 02/19/25 19:50 1,000 ML Sucralfate 2 gm BID@0600,2200 NG 02/19/25 22:00 02/21/25 05:56 2 GM Pantoprazole Sodium 40 mg BID IV 02/21/25 22:00 Laboratory Results Laboratory Tests 02/21/25 04:41 Chemistry Test 02/21/25 04:41 Albumin 3.6 g/dL (3.2-4.8) Calcium Level 9.1 mg/dL (8.7-10.4) Total Protein 5.2 g/dL (5.7-8.2) L LFT Test 02/21/25 04:41 Alanine Aminotransferase (ALT) < 9 U/L (7-40) Alkaline Phosphatase 154 U/L (46-116) H Aspartate Amino Transferase (AST) 39 U/L (13-40) Total Bilirubin 0.3 mg/dL (0.2-1.0) Urinalysis Test 01/31/25 16:30 02/08/25 11:45 Urine Hyaline Casts Few /lpf (0 - 2) Urine Mucus Few (None Seen) Urine Color Yellow (Yellow) Urine Clarity Cloudy (Clear) H Urine pH 5.5 (5.0-9.0) Urine Specific [place] 1.013 (1.001-1.035) Urine Protein 1+ (Negative) H Urine Ketones Negative (Negative) Urine Blood 1+ /uL (Negative) H Urine Nitrite Negative (Negative) Urine Bilirubin Negative (Negative) Urine Urobilinogen Normal mg/dL (Negative) Urine Leukocyte Esterase 3+ /uL (Negative) Urine RBC 110 /hpf (0 - 4) Urine WBC Clumps Present /hpf (None Seen) Urine Microscopic WBC 1269 /HPF (0-5) H Urine Squamous Epithelial Cells Few /hpf (<5) Urine Bacteria Few /hpf (None Seen) H Urine Yeast (Budding) Loaded /hpf (None Seen) Urine Glucose Normal mg/dL (Normal) Microbiology Microbiology Date/Time Source Procedure Growth Status 02/08/25 22:15 Urine - Hook Port Urine Culture - Final Enterococcus faecalis Complete 02/08/25 20:11 Blood Blood Culture - Final NO GROWTH AFTER 5 DAYS OF INCUBATION. Complete 02/03/25 00:50 Nose MRSA Screen - Final Complete Assessment/Plan Assessment/Plan Impression: Acute metabolic encephalopathy Septic shock due to UTI Morbid obesity, BMI 42.3 Snoring, likely ARPAN Urinary tract infection Congestive heart failure (HFpEF) Hyponatremia Pleural effusions Atelectasis Events: Remains on room air Supplemental oxygen PRN No distress Tube feeds via NG tube for nutrition. On pressors for hemodynamic support On Levophed 4 mcg/min Titrate to keep mean arterial pressure greater than 65 mmHg. Continue bronchodilators Continue Pulmicort HOB elevation Aspiration precautions. Monitor hemoglobin Transfuse if less than 7.0 g/dL. Continue IV iron supplementation Monitor renal function Poor urine output Follow up Nephrology recommendations Monitor electrolytes. Supplement as necessary. Continue Lovenox BID for DVT ppx. Note, patient with poor prognosis Follow up Neurology recs Labs and imaging reviewed. Rest of plan as noted below. Plan: Supplemental oxygen PRN Titrate to keep O2 sats above 92%. 02/14 - Patient underwent femoral central line placement for administration of pressors as unable to place IJ or SCV line - unable to thread line. See separate procedure note for details. Bronchodilators PRN. Continue antibiotics Incentive spirometry Pressors as necessary for hemodynamic support Titrate to keep mean arterial pressure greater than 65 mmHg. Follow up Cardiology recs Maintain euvolemia Monitor renal function. Monitor electrolytes. Supplement as necessary. Monitor ins and outs. DVT prophylaxis - Lovenox. Prognosis: Poor given patient's multiple co-morbidities. Condition: Critical Rest of plan per hospitalist and other consultants. A total of 35 minutes of critical care time was spent reviewing the patient record, examining the patient, making a diagnostic and therapeutic plan, discussing this plan with the medical personnel, following up on diagnostic studies and following the patient for clinical stability excluding any and all procedures. At least 50% of this time was spent in direct, [id number] contact. Thank you, Dr. Castaneda, for allowing me to participate in this patient's care. Further recommendations will depend on the patient's clinical course. Please do not hesitate to contact me if you have any questions or concerns. This medical document was created using an electronic medical record system with [employer] dictation system. Although these documentations are being carefully reviewed, there may still be some phonetic and typographical changes. The errors are purely typographical, due to imperfection on the software program, and do not reflect any compromise in the patient's medical care. Plan discussed with: Patient, Other (FABIO Cruz) Visit Coding Pulmonary Billing Provider: BENITO WILLARD MD Date of Service if different f: Feb 21, 2025 Common Visit Codes: 67569-[id number] INP/OBS CARE(HIGH), 25752-[id number] CARE 30-74 MIN BENITO WILLARD MD Feb 21, 2025 21:40
[2025-02-21] MEDS: PANTOPRAZOLE 40 MG/10 ML VIAL INJ IV SCH (21:56)
[2025-02-21 23:36] LABS: Hemoglobin 8.3 g/dL (12.2-16.2)
[2025-02-21 23:38] LABS: Hematocrit 25.2 % (36.0-46.0); Mean Corpuscular Hemoglobin 29.3 pg (28.0-32.0); Mean Corpuscular Volume 89.1 fL (80.0-100.0)
[2025-02-21 23:51] LABS: Base Excess -9.7 mmol/L (-2.0-3.0)
[2025-02-21 23:52] LABS: Albumin 3.3 g/dL (3.2-4.8); Alkaline Phosphatase 101 U/L (46-116); Anion Gap 15 (5-15); BUN/Creatinine Ratio 27.9 (10.0-20.0); Chloride 105 mmol/L (98-107); Glucose 96 mg/dL (74-106); Magnesium 2.3 mg/dL (1.6-2.6); Potassium 3.6 mmol/L (3.5-5.1); Sodium 139 mmol/L (136-145)
[2025-02-21 23:53] LABS: Bilirubin, Total 0.4 mg/dL (0.2-1.0)
[2025-02-21 23:57] LABS: Alanine Aminotransferase < 9 U/L (7-40); Blood Urea Nitrogen 73 mg/dL (9-23); Calcium 8.6 mg/dL (8.7-10.4); Carbon Dioxide 19 mmol/L (20-31); Total Protein 4.8 g/dL (5.7-8.2)
[2025-02-22] VITALS (119 sets, daily range): BP systolic 0–164; BP diastolic 16–142; PULSE 50–124; RESP 9–37; TEMP 97.4–97.7; O2SAT 33–100
[2025-02-22] MEDS: SODIUM BICARB 8.4% 50Meq/50ml SYR Vial IV ONE (00:16)
[2025-02-22] MEDS: POTASSIUM CHL 20MEQ/100ML 100 ML IV ONE (00:20)
[2025-02-22 01:07] LABS: Nucleated Red Blood Cells % 2.0 %; Total Cells Counted 100.0 (100)
[2025-02-22 05:33] LABS: Hematocrit 24.4 % (36.0-46.0); Hemoglobin 8.1 g/dL (12.2-16.2); Mean Corpuscular Hemoglobin 29.1 pg (28.0-32.0); Mean Corpuscular Volume 87.3 fL (80.0-100.0)
[2025-02-22 05:47] LABS: Alkaline Phosphatase 91 U/L (46-116); Anion Gap 15 (5-15); BUN/Creatinine Ratio 32.3 (10.0-20.0); Calcium 8.8 mg/dL (8.7-10.4); Chloride 106 mmol/L (98-107); Glucose 102 mg/dL (74-106); Potassium 3.9 mmol/L (3.5-5.1); Sodium 141 mmol/L (136-145)
[2025-02-22 05:48] LABS: Bilirubin, Total 0.4 mg/dL (0.2-1.0)
[2025-02-22 06:00] LABS: Carbon Dioxide 20 mmol/L (20-31)
[2025-02-22 06:01] LABS: Alanine Aminotransferase < 9 U/L (7-40); Albumin 3.2 g/dL (3.2-4.8); Blood Urea Nitrogen 87 mg/dL (9-23); Total Protein 4.7 g/dL (5.7-8.2)
[2025-02-22 06:21] LABS: Nucleated Red Blood Cells % 2.0 %; Total Cells Counted 100.0 (100)
[2025-02-22 09:07] LABS: Vitamin B1, Whole Blood 151.0 nmol/L (66.5-200.0)
--- NOTE | 2025-02-22 09:27 | DVHPN2 ---
Progress Note Date Seen: Feb 22, 2025 Resident Creating Document: MAXWELL GODOY RESIDENT Medical Necessity Reason Pt with a Central, PICC or Fol: Yes The following are medically ne: Central Line, Hook Catheter Subjective Review of Systems Patient seen and examined at bedside Overnight had 1 bowel movement maroon in color, at the time of my assessment patient was noted to have another maroon bloody bowel movement Currently on 3 pressors including vasopressin, Milind-Synephrine, Levophed of 30 micrograms/minutes On dialysis and BiPAP at the time of my assessment. Objective vital signs Vital Sign Date Time Temp Pulse Resp B/P (MAP) Pulse Ox O2 Delivery O2 Flow Rate FiO2 02/22/25 08:16 99 110/54 100 Facial BiPAP Mask 40 02/22/25 06:15 18 02/22/25 04:00 97.7 97.7 02/22/25 00:00 6 Total Intake and Output 02/21/25 02/21/25 02/22/25 15:00 23:00 07:00 Intake Total 102.75 ml 212.50 ml 461.25 ml Output Total 25 ml 10 ml Balance 102.75 ml 187.50 ml 451.25 ml medications Current Medications Medications Dose Ordered Sig/Taran Route Start Time Stop Time Status Last Admin Dose Admin Ondansetron HCl 4 mg Q4HP PRN IV 01/31/25 19:30 02/14/25 07:39 4 MG Acetaminophen 650 mg Q6HP PRN PO 01/31/25 19:30 02/14/25 11:29 650 MG Nitroglycerin 0.4 mg Q5MINP PRN SL 01/31/25 19:30 Carbidopa/Levodopa 2 tab HS PO 01/31/25 22:00 02/21/25 21:57 2 TAB Digoxin 125 mcg DAILY IV 02/02/25 10:00 02/21/25 10:33 125 MCG Diagnostic Test (Pha) 1 strip ACHS 02/03/25 17:00 02/22/25 07:24 1 STRIP Insulin Human Regular ACHS SC 02/03/25 17:00 02/20/25 22:55 2 UNITS Dextrose 50 ml UD PRN IV 02/03/25 16:45 02/11/25 06:54 50 ML Levothyroxine Sodium 100 mcg QAM@0600 PO 02/08/25 06:00 02/22/25 06:21 100 MCG Patient Own Medication 160 mg DAILY IV 02/09/25 10:00 UNV Patient Own Medication 1 g Q8H IV 02/08/25 12:30 UNV Clotrimazole 1 applic DAILY TOP 02/12/25 10:00 02/21/25 10:42 1 APPLIC Patient Own Medication 1 DAILY TOP 02/12/25 10:00 02/21/25 10:39 1 Enoxaparin Sodium 40 mg BID SC 02/12/25 22:00 02/21/25 21:57 40 MG Budesonide 0.5 mg BID NEB 02/13/25 10:00 02/22/25 06:25 0.5 MG Betamethasone Dipropion Augmented 1 applic DAILY TOP 02/14/25 13:30 02/21/25 10:42 1 APPLIC Albuterol 2.5 mg Q6HR NEB 02/14/25 18:00 02/22/25 06:25 2.5 MG Norepinephrine Bitartrate 250 ml @ 3.75 mls/hr Q24H IV 02/14/25 19:00 02/22/25 01:06 37.5 MLS/HR Fluticasone Propionate 100 mcg DAILY EACHNOSTRI 02/17/25 16:00 Cancel Lactulose 30 ml Q6HPRN PRN PO 02/19/25 14:30 Enteral Nutritional Formula 1,000 ml 60ML/HR GT 02/19/25 16:15 02/19/25 19:50 1,000 ML Sucralfate 2 gm BID@0600,2200 NG 02/19/25 22:00 02/22/25 06:21 2 GM Pantoprazole Sodium 40 mg BID IV 02/21/25 22:00 02/21/25 21:56 40 MG Examination General Appearance: Resting in bed with eyes closed. In [id number] distress. Pulmonary/Respiratory: Equal and bilateral air entry, wheezing Cardiovascular/Chest: Regular rate and rhythm. No murmurs. No JVD. Peripheral Pulses: 2+ Radial (R). 2+ Radial (L). 2+ Pedal (R). 2+ Pedal (L) Abdominal Exam: Hypoactive bowel sounds. Soft. normal abdomen, no visible veins, Nontender. No hepatospenomegaly. No masses Skin Exam: Generalized edema laboratory and microbiology Laboratory Tests 02/22/25 04:54 Test 02/22/25 04:54 Range/Units Serum Glucose 102 74-106 mg/dL Microbiology Date/Time Source Procedure Growth Status 02/08/25 22:15 Urine - Hook Port Urine Culture - Final Enterococcus faecalis Complete 02/08/25 20:11 Blood Blood Culture - Final NO GROWTH AFTER 5 DAYS OF INCUBATION. Complete 02/03/25 00:50 Nose MRSA Screen - Final Complete Labs and/or images reviewed: Labs reviewed by me, Image(s) reviewed by me Problem List/Assessment/Plan Problem List/Assessment/Plan Possible upper GI bleed Stress-induced ulcer and/or gastritis History of horseshoe kidney CHANTAL/VMN on CKD? Sepsis due to UTI with Enterococcus faecalis and VRE Septic shock Bed-bound Acute on chronic diastolic heart failure Plan: Ordered H&H, PT INR Stool occult blood negative, pending repeat stool occult blood Continue current supportive care IV Protonix 40 mg b.i.d. Carafate 1 g b.i.d. Continue antibiotics GI team will remain on standby for endoscopy and/or colonoscopy if there is an urgent indication. Thank you so much for the opportunity to consult on your patient. GI team will follow the patient. In case of any questions or concerns please feel free to reach out. Plan discussed with Dr. Lopez Plan discussed with: Other My Orders My Orders Orders - MAXWELL GODOY RESIDENT Procedure Category Date Status Time Pantoprazole PHA 02/21/25 In Process (Protonix) 22:00 Dietary Evaluation Review Comments: 1. CCHO-60 2 gNa diet w 45g proein restriction 2. Try Devin for wound healing 3. Wt management 4. F/U with nephrology and updated lab values Expected Outcomes/Goals: Less uremic syndrome, controlled DM CC Plasma Assessment Blood Product Administration S: [id number] MAXWELL GODOY RESIDENT Feb 22, 2025 09:27
[2025-02-22] MEDS ORDERED: VASOPRESSIN 40 UNITS in D5W 5% 198 ML IV SCH (09:30)
[2025-02-22] MEDS: EPINEPHrine HCL 250 ML IV SCH (09:30)
--- NOTE | 2025-02-22 09:35 | DVHPN2 ---
Consult Progress Note Objective vital signs Vital Sign Date Time Temp Pulse Resp B/P (MAP) Pulse Ox O2 Delivery O2 Flow Rate FiO2 02/22/25 08:16 99 110/54 100 Facial BiPAP Mask 40 02/22/25 06:15 18 02/22/25 04:00 97.7 97.7 02/22/25 00:00 6 Total Intake and Output 02/21/25 02/21/25 02/22/25 15:00 23:00 07:00 Intake Total 102.75 ml 212.50 ml 461.25 ml Output Total 25 ml 10 ml Balance 102.75 ml 187.50 ml 451.25 ml medications Current Medications Medications Dose Ordered Sig/Taran Route Start Time Stop Time Status Last Admin Dose Admin Ondansetron HCl 4 mg Q4HP PRN IV 01/31/25 19:30 02/14/25 07:39 4 MG Acetaminophen 650 mg Q6HP PRN PO 01/31/25 19:30 02/14/25 11:29 650 MG Nitroglycerin 0.4 mg Q5MINP PRN SL 01/31/25 19:30 Carbidopa/Levodopa 2 tab HS PO 01/31/25 22:00 02/21/25 21:57 2 TAB Digoxin 125 mcg DAILY IV 02/02/25 10:00 02/21/25 10:33 125 MCG Diagnostic Test (Pha) 1 strip ACHS 02/03/25 17:00 02/22/25 07:24 1 STRIP Insulin Human Regular ACHS SC 02/03/25 17:00 02/20/25 22:55 2 UNITS Dextrose 50 ml UD PRN IV 02/03/25 16:45 02/11/25 06:54 50 ML Levothyroxine Sodium 100 mcg QAM@0600 PO 02/08/25 06:00 02/22/25 06:21 100 MCG Patient Own Medication 160 mg DAILY IV 02/09/25 10:00 UNV Patient Own Medication 1 g Q8H IV 02/08/25 12:30 UNV Clotrimazole 1 applic DAILY TOP 02/12/25 10:00 02/21/25 10:42 1 APPLIC Patient Own Medication 1 DAILY TOP 02/12/25 10:00 02/21/25 10:39 1 Enoxaparin Sodium 40 mg BID SC 02/12/25 22:00 02/21/25 21:57 40 MG Budesonide 0.5 mg BID NEB 02/13/25 10:00 02/22/25 06:25 0.5 MG Betamethasone Dipropion Augmented 1 applic DAILY TOP 02/14/25 13:30 02/21/25 10:42 1 APPLIC Albuterol 2.5 mg Q6HR NEB 02/14/25 18:00 02/22/25 06:25 2.5 MG Norepinephrine Bitartrate 250 ml @ 3.75 mls/hr Q24H IV 02/14/25 19:00 02/22/25 01:06 37.5 MLS/HR Fluticasone Propionate 100 mcg DAILY EACHNOSTRI 02/17/25 16:00 Cancel Lactulose 30 ml Q6HPRN PRN PO 02/19/25 14:30 Enteral Nutritional Formula 1,000 ml 60ML/HR GT 02/19/25 16:15 02/19/25 19:50 1,000 ML Sucralfate 2 gm BID@0600,2200 NG 02/19/25 22:00 02/22/25 06:21 2 GM Pantoprazole Sodium 40 mg BID IV 02/21/25 22:00 02/21/25 21:56 40 MG Epinephrine HCl 250 ml @ 7.5 mls/hr Q24H IV 02/22/25 09:30 Phenylephrine HCl 250 ml @ 30 mls/hr Q8H20M IV 02/22/25 09:30 Vasopressin 40 units/Dextrose 200 ml @ 60 mls/hr Q3H20M IV 02/22/25 09:30 laboratory and microbiology Laboratory Tests 02/22/25 04:54 Test 02/22/25 04:54 Range/Units Serum Glucose 102 74-106 mg/dL Problem List/Assessment/Plan Problem List/Assessment/Plan linezolid started for enterococcus in urine - if concerned for entercoccus infection, recommend sargent exchange. no indication for linezolid at the time off zerbaxa and leukocytosis is resolving as hydrocortisone is downtitrated suspect leukocytosis is due to hydrocortisone use if concerned for infection, please stop IV iron use, which can excacerbate infections, defer to primary service on discontinuation and overall suspicion for ongoing infection has been and continues to be low restarted on bumex ggt, continue to recommend to not overdiurese patient, p atient has evidence of intravascular depletion, resulting in naseem and hypotension. albumin as needed , defer to primary team if there are questions regarding patient's infection status please do not hesitate to call me Authorized and Performed by: funmi mclaughlin Total critical care time: Approximately 76 minutes Due to a high probability of clinically significant, life threatening deterioration, the patient required my highest level of preparedness to intervene emergently and I personally spent this critical care time directly and personally managing the patient. This critical care time included obtaining a history; examining the patient; pulse oximetry; ordering and review of studies; arranging urgent treatment with development of a management plan; evaluation of patient's response to treatment; frequent reassessment; and, discussions with other providers. This critical care time was performed to assess and manage the high probability of imminent, life-threatening deterioration that could result in multi-organ failure. It was exclusive of separately billable procedures and treating other patients and teaching time. Dietary Evaluation Review Comments: 1. CCHO-60 2 gNa diet w 45g proein restriction 2. Try Devin for wound healing 3. Wt management 4. F/U with nephrology and updated lab values Expected Outcomes/Goals: Less uremic syndrome, controlled DM CC Plasma Assessment Blood Product Administration S: [id number] FUNMI MCLAUGHLIN MD Feb 22, 2025 09:35
[2025-02-22] MEDS ORDERED: ALBUMIN 25% 100 ML IV SCH (10:15)
[2025-02-22] MEDS: ALBUMIN 25% 200 ML IV ONE (10:21)
[2025-02-22] MEDS: ATROPINE SULFATE 1 MG/1 ML VIAL ONE (10:40)
[2025-02-22] MEDS: PHENYLEPHRINE IV 250 ML IV SCH (10:47)
[2025-02-22] MEDS: DOPamine 1600MCG/ML D5W 250 ML IV SCH (11:00)
[2025-02-22] MEDS ORDERED: DOPamine 1600MCG/ML D5W 250 ML IV SCH (11:00)
[2025-02-22] MEDS: VASOPRESSIN 20 UNITS in SODIUM CHL 0.9% 99 ML IV SCH (11:15)
[2025-02-22 12:15] LABS: INR 1.47 (0.9-1.15); Prothrombin Time 15.0 sec (9.3-11.8)
--- NOTE | 2025-02-22 12:45 | DVHPNRES ---
Progress Note Date Seen: Feb 22, 2025 Resident Creating Document: DAYAMI HERNANDEZ RESIDENT Has the PT tested + for MRSA If YES, has PT been informed?: No Medical Necessity Reason Pt with a Central, PICC or Fol: Yes The following are medically ne: Central Line, Hook Catheter Subjective Review of Systems This is a 79-year-old female with past medical history includes congestive heart failure, chronic kidney disease, diabetes mellitus, hypertension, hypothyroidism, anemia, atrial fibrillation and tonsillectomy presents with altered mental status following a recent onet progressive lethargy following a recent hospitalization for sepsis. 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 Presently, she has sacral and buttock ulcers with serous drainage, suggestive of pressure injury and psoriatic flare, along with stage 12 ulcers on her posterior thighs and ecchymosis with blistering on both upper extremities. She required Levophed for hypotension in the ED and was started on levofloxacin due to allergies to penicillin and ceftriaxone. Labs show mild lactic acidosis, significant pyuria, and VRE with presumptive *Leidy albicans* in the urine. Imaging reveals cerebral volume loss on head CT and a chest X-ray showing cardiomegaly, left lower lobe opacity, and prominent pulmonary vasculature. She lives with family, who deny any substance abuse. Patient seen and examined at bedside. Blood pressure has been in the lower side so patient is currently requiring vasopressors at this time. Patient is on Levophed maximized dose at 30 micrograms/minute, vasopressin 0.03 and phenylephrine 65 microgram/minute. Patient is also requiring BiPAP at this time. Family decided to undergo hemodialysis today. Nephrology is on board. Dialysis nurse was at bedside starting dialysis this morning. Objective vital signs Vital Sign Date Time Temp Pulse Resp B/P (MAP) Pulse Ox O2 Delivery O2 Flow Rate FiO2 02/22/25 11:41 100 Bi-pap/CPAP 02/22/25 11:41 84 81/61 40 02/22/25 06:15 18 02/22/25 04:00 97.7 97.7 02/22/25 00:00 6 Total Intake and Output 02/21/25 02/21/25 02/22/25 15:00 23:00 07:00 Intake Total 102.75 ml 212.50 ml 461.25 ml Output Total 25 ml 10 ml Balance 102.75 ml 187.50 ml 451.25 ml medications Current Medications Medications Dose Ordered Sig/Taran Route Start Time Stop Time Status Last Admin Dose Admin Ondansetron HCl 4 mg Q4HP PRN IV 01/31/25 19:30 02/14/25 07:39 4 MG Acetaminophen 650 mg Q6HP PRN PO 01/31/25 19:30 02/14/25 11:29 650 MG Nitroglycerin 0.4 mg Q5MINP PRN SL 01/31/25 19:30 Carbidopa/Levodopa 2 tab HS PO 01/31/25 22:00 02/21/25 21:57 2 TAB Digoxin 125 mcg DAILY IV 02/02/25 10:00 02/21/25 10:33 125 MCG Diagnostic Test (Pha) 1 strip ACHS 02/03/25 17:00 02/22/25 07:24 1 STRIP Insulin Human Regular ACHS SC 02/03/25 17:00 02/20/25 22:55 2 UNITS Dextrose 50 ml UD PRN IV 02/03/25 16:45 02/11/25 06:54 50 ML Levothyroxine Sodium 100 mcg QAM@0600 PO 02/08/25 06:00 02/22/25 06:21 100 MCG Patient Own Medication 160 mg DAILY IV 02/09/25 10:00 UNV Patient Own Medication 1 g Q8H IV 02/08/25 12:30 UNV Clotrimazole 1 applic DAILY TOP 02/12/25 10:00 02/21/25 10:42 1 APPLIC Patient Own Medication 1 DAILY TOP 02/12/25 10:00 02/21/25 10:39 1 Enoxaparin Sodium 40 mg BID SC 02/12/25 22:00 02/21/25 21:57 40 MG Budesonide 0.5 mg BID NEB 02/13/25 10:00 02/22/25 06:25 0.5 MG Betamethasone Dipropion Augmented 1 applic DAILY TOP 02/14/25 13:30 02/21/25 10:42 1 APPLIC Albuterol 2.5 mg Q6HR NEB 02/14/25 18:00 02/22/25 11:40 2.5 MG Norepinephrine Bitartrate 250 ml @ 3.75 mls/hr Q24H IV 02/14/25 19:00 02/22/25 01:06 37.5 MLS/HR Fluticasone Propionate 100 mcg DAILY EACHNOSTRI 02/17/25 16:00 Cancel Lactulose 30 ml Q6HPRN PRN PO 02/19/25 14:30 Enteral Nutritional Formula 1,000 ml 60ML/HR GT 02/19/25 16:15 02/19/25 19:50 1,000 ML Sucralfate 2 gm BID@0600,2200 NG 02/19/25 22:00 02/22/25 06:21 2 GM Pantoprazole Sodium 40 mg BID IV 02/21/25 22:00 02/21/25 21:56 40 MG Epinephrine HCl 250 ml @ 7.5 mls/hr Q24H IV 02/22/25 09:30 Phenylephrine HCl 250 ml @ 30 mls/hr Q8H20M IV 02/22/25 09:30 Albumin Human 100 ml @ 100 mls/hr PRN IV 02/22/25 10:15 02/23/25 11:14 Dopamine HCl/ Dextrose 250 ml @ 21.563 mls/ hr [id number] IV 02/22/25 11:00 Dopamine HCl/ Dextrose 250 ml @ 21.563 mls/ hr [id number] IV 02/22/25 11:00 UNV Vasopressin 20 units/Sodium Chloride 100 ml @ 9 mls/hr Q11H7M IV 02/22/25 11:15 Examination Physical Examination General: Patient alert and oriented in person, place and time. On BiPAP at this time HEENT: Normocephalic, atraumatic, moist mucous membranes Respiratory/pulmonary: Decreased breath sounds on bilateral lungs but grossly clear. Cardiovascular: Normal heart sounds S1 and S2 with no associated murmurs Abdomen: Abdomen nondistended, there is no pain to palpation in any of the abdominal quadrants, no palpable masses. Extremities: There is bilateral lower extremity edema present.. Skin: No rashes or pruritus, there is no sacral edema present at this time. Neurological: Intact cranial nerves with no focal neurologic deficits laboratory and microbiology Laboratory Tests 02/22/25 04:54 Test 02/22/25 04:54 Range/Units Serum Glucose 102 74-106 mg/dL Microbiology Date/Time Source Procedure Growth Status 02/08/25 22:15 Urine - Hook Port Urine Culture - Final Enterococcus faecalis Complete 02/08/25 20:11 Blood Blood Culture - Final NO GROWTH AFTER 5 DAYS OF INCUBATION. Complete 02/03/25 00:50 Nose MRSA Screen - Final Complete Problem List/Assessment/Plan Problem List/Assessment/Plan Assessment/plan Acute metabolic encephalopathy Septic shock due to UTI with a Enterococcus faecalis and VRE Recent sepsis with a wound infection due to Pseudomonas aeruginosa MDRO Uncontrolled Type 2 diabetes Acute kidney injury Left hydronephrosis Horseshoe kidney Status post ureteral stent Hypothyroidism Chronic normocytic normochromic anemia Hyponatremia Atrial fibrillation Heart failure with preserved ejection fraction Morbid obesity Bed-bound Plan Blood pressure in the lower side, patient requesting three vasopressors at this time. Levophed, vasopressin, phenylephrine Patient is currently on BiPAP at this time saturating 98% (IPAP 12, EPAP 6, RR12) Ordered Chest xray Ordered sputum cultures an urine cultures, blood cultures GI consulted and started the patient on pantoprazole 40 mg IV b.i.d. Nephrology on board, patient undergoing dialysis today Ordered MRSA nares Start IV zosyn and doxycycline Stool occult blood for possible GI bleed due to given anemia Renal ultrasound shows no active infection, abscesses. Keep MAP greater than 65 during HD If there is still concern for UTI change Hook's OFF bumex at this time. Goals of care discussed with the patient and family at bedside, Plan discussed with Dr. Adler Plan discussed with: Patient Dietary Evaluation Review Comments: 1. CCHO-60 2 gNa diet w 45g proein restriction 2. Try Devin for wound healing 3. Wt management 4. F/U with nephrology and updated lab values Expected Outcomes/Goals: Less uremic syndrome, controlled DM CC Plasma Assessment Blood Product Administration S: [id number] DAYAMI HERNANDEZ RESIDENT Feb 22, 2025 12:45
[2025-02-22] MEDS: DOXYCYCLINE 100MG/100ML 100 ML IV SCH (16:26)
[2025-02-22] MEDS: PIPERACILLIN-TAZOB 2.25GM 50 ML IV SCH (17:00)
[2025-02-22] MEDS: NOREPINEPHRINE BITARTRATE 32 MG in SODIUM CHL 0.9% 218 ML IV SCH (20:02)
[2025-02-22] MEDS: PHENYLEPHRINE INJ 80 MG in SODIUM CHL 0.9% 242 ML IV SCH (20:02)
[2025-02-22] MEDS: EPOETIN ALFA-EPBX 4,000 UNIT/ML VIAL SC ONE (21:25)
[2025-02-22] MEDS ORDERED: PIPERACILLIN-TAZOB 2.25GM 50 ML IV SCH (22:00)
--- NOTE | 2025-02-22 22:32 | DVHPN2 ---
Progress Note Date Seen: Feb 22, 2025 Has the PT tested + for MRSA If YES, has PT been informed?: No Medical Necessity Reason Pt with a Central, PICC or Fol: Yes The following are medically ne: Central Line, Hook Catheter Subjective Patient reports: Other (Events noted,, needed multiple vasopressors as soon as patient is started on dialysis) Review of Systems: Deferred Objective vital signs Vital Sign Date Time Temp Pulse Resp B/P (MAP) Pulse Ox O2 Delivery O2 Flow Rate FiO2 02/22/25 20:00 112 21 100 Simple Mask* 6 50 02/22/25 19:15 103/24 (50) 02/22/25 18:00 97.6 97.6 Total Intake and Output 02/21/25 02/21/25 02/22/25 15:00 23:00 07:00 Intake Total 102.75 ml 212.50 ml 506.25 ml Output Total 25 ml 10 ml Balance 102.75 ml 187.50 ml 496.25 ml medications Current Medications Medications Dose Ordered Sig/Taran Route Start Time Stop Time Status Last Admin Dose Admin Ondansetron HCl 4 mg Q4HP PRN IV 01/31/25 19:30 02/14/25 07:39 4 MG Acetaminophen 650 mg Q6HP PRN PO 01/31/25 19:30 02/14/25 11:29 650 MG Nitroglycerin 0.4 mg Q5MINP PRN SL 01/31/25 19:30 Carbidopa/Levodopa 2 tab HS PO 01/31/25 22:00 02/22/25 21:26 2 TAB Digoxin 125 mcg DAILY IV 02/02/25 10:00 02/21/25 10:33 125 MCG Diagnostic Test (Pha) 1 strip ACHS 02/03/25 17:00 02/22/25 21:26 1 STRIP Insulin Human Regular ACHS SC 02/03/25 17:00 02/20/25 22:55 2 UNITS Dextrose 50 ml UD PRN IV 02/03/25 16:45 02/11/25 06:54 50 ML Levothyroxine Sodium 100 mcg QAM@0600 PO 02/08/25 06:00 02/22/25 06:21 100 MCG Patient Own Medication 160 mg DAILY IV 02/09/25 10:00 UNV Patient Own Medication 1 g Q8H IV 02/08/25 12:30 UNV Clotrimazole 1 applic DAILY TOP 02/12/25 10:00 02/22/25 15:00 1 APPLIC Patient Own Medication 1 DAILY TOP 02/12/25 10:00 02/22/25 15:00 1 Enoxaparin Sodium 40 mg BID SC 02/12/25 22:00 02/21/25 21:57 40 MG Budesonide 0.5 mg BID NEB 02/13/25 10:00 02/22/25 18:51 0.5 MG Betamethasone Dipropion Augmented 1 applic DAILY TOP 02/14/25 13:30 02/22/25 15:00 1 APPLIC Albuterol 2.5 mg Q6HR NEB 02/14/25 18:00 02/22/25 18:51 2.5 MG Fluticasone Propionate 100 mcg DAILY EACHNOSTRI 02/17/25 16:00 Cancel Lactulose 30 ml Q6HPRN PRN PO 02/19/25 14:30 Enteral Nutritional Formula 1,000 ml 60ML/HR GT 02/19/25 16:15 02/19/25 19:50 1,000 ML Sucralfate 2 gm BID@0600,2200 NG 02/19/25 22:00 02/22/25 21:25 2 GM Pantoprazole Sodium 40 mg BID IV 02/21/25 22:00 02/22/25 21:25 40 MG Epinephrine HCl 250 ml @ 7.5 mls/hr Q24H IV 02/22/25 09:30 Albumin Human 100 ml @ 100 mls/hr PRN IV 02/22/25 10:15 02/23/25 11:14 Dopamine HCl/ Dextrose 250 ml @ 21.563 mls/ hr [id number] IV 02/22/25 11:00 Dopamine HCl/ Dextrose 250 ml @ 21.563 mls/ hr [id number] IV 02/22/25 11:00 UNV Vasopressin 20 units/Sodium Chloride 100 ml @ 9 mls/hr Q11H7M IV 02/22/25 11:15 Piperacillin Sod/ Tazobactam Sod 50 ml @ 12.5 mls/hr Q12HR IV 02/22/25 22:00 UNV Doxycycline Hyclate 100 ml @ 50 mls/hr Q12H IV 02/22/25 12:45 02/22/25 21:51 50 MLS/HR Piperacillin Sod/ Tazobactam Sod 50 ml @ 12.5 mls/hr Q8H IV 02/22/25 16:00 02/22/25 17:00 12.5 MLS/HR Phenylephrine HCl 80 mg/Sodium Chloride 250 ml @ 7.5 mls/hr Q24H IV 02/22/25 18:15 02/22/25 20:02 33.75 MLS/HR Norepinephrine Bitartrate 32 mg/ Sodium Chloride 250 ml @ 0.938 mls/ hr Q24H IV 02/22/25 18:15 02/22/25 20:02 14.063 MLS/HR Epoetin Soham-epbx 10,000 unit MWF@2100 SC 02/23/25 21:00 Examination: GENERAL:Abnormal, LUNGS:Abnormal, MSK:Abnormal, SKIN:Abnormal, NEURO:Abnormal laboratory and microbiology Laboratory Tests 02/22/25 04:54 Test 02/22/25 04:54 Range/Units Serum Glucose 102 74-106 mg/dL Microbiology Date/Time Source Procedure Growth Status 02/08/25 22:15 Urine - Hook Port Urine Culture - Final Enterococcus faecalis Complete 02/08/25 20:11 Blood Blood Culture - Final NO GROWTH AFTER 5 DAYS OF INCUBATION. Complete 02/03/25 00:50 Nose MRSA Screen - Final Complete Problem List/Assessment/Plan Problem List/Assessment/Plan Acute kidney injury hemodynamic mediated etiology in the setting of severe sepsis, hypotension Hyponatremia in the setting of anasarca Hypokalemia AFib acute diastolic heart failure Septic Shock Horseshoe kidney history of ureteral stent Status post TAVR Hypertension History of DVT Hypokalemia Recommendations seen and monitored on Hemodialysis today Patient developed hypotension and drop in heart rate after starting dialysis--she also needed multiple vasopressors Dialysis was completed with UF of 1 L today Patient has rectal bleeding bright red blood---no heparin with dialysis I have discussed with patient's daughter and son-in-law several times today explained poor prognosis--high-risk of arrhythmias and on dialysis---they verbalized understanding of risks and wished to continue treatment for now Later they made patient DNR Poor prognosis Plan discussed with: Daughter, Son My Orders My Orders Orders - SOCRATES POZO MD Procedure Category Date Status Time Hemodialysis Orders ORDERS 02/22/25 Transmitted 08:17 Albumin 25% (Albutein) PHA 02/22/25 In Process 10:15 Dopamine 1600mcg/Ml PHA 02/22/25 In Process [id number] 11:00 Dietary Evaluation Review Comments: 1. CCHO-60 2 gNa diet w 45g proein restriction 2. Try Devin for wound healing 3. Wt management 4. F/U with nephrology and updated lab values Expected Outcomes/Goals: Less uremic syndrome, controlled DM Critical Care Time (mins): 45 CC Plasma Assessment Blood Product Administration S: [id number] SOCRATES POZO MD Feb 22, 2025 22:32
--- NOTE | 2025-02-22 23:34 | DVHPN2 ---
[facility] DOS: 02/22/25 Patient seen and examined at bedside. On supplemental oxygen. Overnight events reviewed. HPI: An 79-year-old woman with PMHx of CHF, chronic kidney disease, diabetes mellitus, hypertension, AFib, thyroid disease and anemia who presented to ED on 02/01/25 for evaluation of altered mental status. Patient was recently discharged after being treated for sepsis. Patient was acting lethargic and altered on day prior to presentation, therefore family brought her in for further evaluation. Patient was lethargic, oriented times two on day of presentation. No unilateral weakness noted or slurred speech. No cardiac or respiratory symptoms. Patient was admitted for further care. Pulmonary consultation is requested for evaluation and management d/t pleural effusions. Past Medical History CHF, chronic kidney disease, diabetes mellitus, hypertension, thyroid, anemia, AFib Past Surgical History Tonsillectomy Family History Noncontributory Social History No smoking, alcohol or illicit drug use. Medications: Reviewed. Allergies: Penicillins (Unverified Allergy, Severe, 03/16/15) Sulfa Antibiotics (Unverified Allergy, Severe, 03/16/15) Morphine (Verified Allergy, Intermediate, ALTERED, 01/31/18) Ceftriaxone (Verified Allergy, Unknown, 01/31/18) Reviewed: Care Plan, H&P, Labs, Medications, Previous Orders, Radiology Changes from previous H/P or p: Changes Objective Vitals Vital Signs Date Time Temp Pulse Resp B/P (MAP) Pulse Ox O2 Delivery O2 Flow Rate FiO2 02/22/25 23:00 105 22 87/25 (45) 100 02/22/25 22:05 Facial BiPAP Mask 40 02/22/25 22:00 6 02/22/25 20:01 97.5 97.5 Intake/Output Intake and Output 02/22/25 07:00 Intake Total 821.50 ml Output Total 35 ml Balance 786.50 ml IV Total 481.50 ml Tube Feeding 340 ml Output Urine Total 35 ml # Bowel Movements 4 General Appearance: Alert, Other (Disoriented) HEENT: Atraumatic, PERRLA, EOMI Lungs: Clear to auscultation, Other (Decreased air movement bilaterally. No wheezing. No rhonchi) Cardiovascular: Regular rate, Normal S1, Normal S2 Abdomen: Normal bowel sounds, Soft, No tenderness Musculoskeletal: Normal sensory function, Normal motor function Extremities: Other (2+ edema bilaterally in the lower extremities) Neuro: Strength at 5/5 X4 ext, Cranial nerves 3-12 NL Skin: Significant Lesion, Dry, Intact, Warm Psych/Mental Status: Mental status NL, Mood NL Medications Current Medications Medications Dose Ordered Sig/Taran Route Start Time Stop Time Status Last Admin Dose Admin Ondansetron HCl 4 mg Q4HP PRN IV 01/31/25 19:30 02/14/25 07:39 4 MG Acetaminophen 650 mg Q6HP PRN PO 01/31/25 19:30 02/14/25 11:29 650 MG Nitroglycerin 0.4 mg Q5MINP PRN SL 01/31/25 19:30 Carbidopa/Levodopa 2 tab HS PO 01/31/25 22:00 02/22/25 21:26 2 TAB Digoxin 125 mcg DAILY IV 02/02/25 10:00 02/21/25 10:33 125 MCG Diagnostic Test (Pha) 1 strip ACHS 02/03/25 17:00 02/22/25 21:26 1 STRIP Insulin Human Regular ACHS SC 02/03/25 17:00 02/20/25 22:55 2 UNITS Dextrose 50 ml UD PRN IV 02/03/25 16:45 02/11/25 06:54 50 ML Levothyroxine Sodium 100 mcg QAM@0600 PO 02/08/25 06:00 02/22/25 06:21 100 MCG Patient Own Medication 160 mg DAILY IV 02/09/25 10:00 UNV Patient Own Medication 1 g Q8H IV 02/08/25 12:30 UNV Clotrimazole 1 applic DAILY TOP 02/12/25 10:00 02/22/25 15:00 1 APPLIC Patient Own Medication 1 DAILY TOP 02/12/25 10:00 02/22/25 15:00 1 Enoxaparin Sodium 40 mg BID SC 02/12/25 22:00 02/21/25 21:57 40 MG Budesonide 0.5 mg BID NEB 02/13/25 10:00 02/22/25 18:51 0.5 MG Betamethasone Dipropion Augmented 1 applic DAILY TOP 02/14/25 13:30 02/22/25 15:00 1 APPLIC Albuterol 2.5 mg Q6HR NEB 02/14/25 18:00 02/22/25 18:51 2.5 MG Fluticasone Propionate 100 mcg DAILY EACHNOSTRI 02/17/25 16:00 Cancel Lactulose 30 ml Q6HPRN PRN PO 02/19/25 14:30 Enteral Nutritional Formula 1,000 ml 60ML/HR GT 02/19/25 16:15 02/19/25 19:50 1,000 ML Sucralfate 2 gm BID@0600,2200 NG 02/19/25 22:00 02/22/25 21:25 2 GM Pantoprazole Sodium 40 mg BID IV 02/21/25 22:00 02/22/25 21:25 40 MG Epinephrine HCl 250 ml @ 7.5 mls/hr Q24H IV 02/22/25 09:30 Albumin Human 100 ml @ 100 mls/hr PRN IV 02/22/25 10:15 02/23/25 11:14 Dopamine HCl/ Dextrose 250 ml @ 21.563 mls/ hr [id number] IV 02/22/25 11:00 Dopamine HCl/ Dextrose 250 ml @ 21.563 mls/ hr [id number] IV 02/22/25 11:00 UNV Vasopressin 20 units/Sodium Chloride 100 ml @ 9 mls/hr Q11H7M IV 02/22/25 11:15 Piperacillin Sod/ Tazobactam Sod 50 ml @ 12.5 mls/hr Q12HR IV 02/22/25 22:00 UNV Doxycycline Hyclate 100 ml @ 50 mls/hr Q12H IV 02/22/25 12:45 02/22/25 21:51 50 MLS/HR Piperacillin Sod/ Tazobactam Sod 50 ml @ 12.5 mls/hr Q8H IV 02/22/25 16:00 02/22/25 17:00 12.5 MLS/HR Phenylephrine HCl 80 mg/Sodium Chloride 250 ml @ 7.5 mls/hr Q24H IV 02/22/25 18:15 02/22/25 20:02 33.75 MLS/HR Norepinephrine Bitartrate 32 mg/ Sodium Chloride 250 ml @ 0.938 mls/ hr Q24H IV 02/22/25 18:15 02/22/25 20:02 14.063 MLS/HR Epoetin Soham-epbx 10,000 unit MWF@2100 IA 02/23/25 21:00 Laboratory Results Laboratory Tests 02/22/25 04:54 Chemistry Test 02/22/25 04:54 Albumin 3.2 g/dL (3.2-4.8) Calcium Level 8.8 mg/dL (8.7-10.4) Total Protein 4.7 g/dL (5.7-8.2) L Coagulation Test 02/22/25 11:37 Prothrombin Time 15.0 sec (9.3-11.8) H Prothrombin Time INR 1.47 (0.9-1.15) H LFT Test 02/22/25 04:54 Alanine Aminotransferase (ALT) < 9 U/L (7-40) Alkaline Phosphatase 91 U/L (46-116) Aspartate Amino Transferase (AST) 25 U/L (13-40) Total Bilirubin 0.4 mg/dL (0.2-1.0) Urinalysis Test 01/31/25 16:30 02/08/25 11:45 Urine Hyaline Casts Few /lpf (0 - 2) Urine Mucus Few (None Seen) Urine Color Yellow (Yellow) Urine Clarity Cloudy (Clear) H Urine pH 5.5 (5.0-9.0) Urine Specific [place] 1.013 (1.001-1.035) Urine Protein 1+ (Negative) H Urine Ketones Negative (Negative) Urine Blood 1+ /uL (Negative) H Urine Nitrite Negative (Negative) Urine Bilirubin Negative (Negative) Urine Urobilinogen Normal mg/dL (Negative) Urine Leukocyte Esterase 3+ /uL (Negative) Urine RBC 110 /hpf (0 - 4) Urine WBC Clumps Present /hpf (None Seen) Urine Microscopic WBC 1269 /HPF (0-5) H Urine Squamous Epithelial Cells Few /hpf (<5) Urine Bacteria Few /hpf (None Seen) H Urine Yeast (Budding) Loaded /hpf (None Seen) Urine Glucose Normal mg/dL (Normal) Blood Gas Results Test 02/21/25 23:37 Arterial Blood pH 7.245 (7.350-7.450) FiO2 % 50.0 Microbiology Microbiology Date/Time Source Procedure Growth Status 02/08/25 22:15 Urine - Hook Port Urine Culture - Final Enterococcus faecalis Complete 02/08/25 20:11 Blood Blood Culture - Final NO GROWTH AFTER 5 DAYS OF INCUBATION. Complete 02/03/25 00:50 Nose MRSA Screen - Final Complete Assessment/Plan Assessment/Plan Impression: Acute metabolic encephalopathy Septic shock due to UTI Morbid obesity, BMI 42.3 Snoring, likely ARPAN Urinary tract infection Congestive heart failure (HFpEF) Hyponatremia Pleural effusions Atelectasis Events: Remains on room air On supplemental oxygen 6 LPM simple mask HD today, 1 liter removed. Needing multiple vasopressors for dialysis Pressors for hemodynamic support Titrate to keep mean arterial pressure greater than 65 mmHg. Continue bronchodilators Continue Pulmicort Continue abx - Zosyn, doxycycline WBC 17.4 K HOB elevation Aspiration precautions. Monitor hemoglobin - 8.1 g/dL currently Transfuse if less than 7.0 g/dL. Continue IV iron supplementation Tube feeds via NG tube for nutrition. Monitor renal function Poor urine output Follow up Nephrology recommendations Monitor electrolytes. Supplement as necessary. Lovenox held due to rectal bleeding Note, patient with poor prognosis Labs and imaging reviewed. Rest of plan as noted below. Plan: Supplemental oxygen Titrate to keep O2 sats above 92%. 02/14 - Patient underwent femoral central line placement for administration of pressors as unable to place IJ or SCV line - unable to thread line. See separate procedure note for details. Bronchodilators PRN. Continue antibiotics Incentive spirometry Pressors as necessary for hemodynamic support Titrate to keep mean arterial pressure greater than 65 mmHg. Follow up Cardiology recs Maintain euvolemia Monitor renal function. Monitor electrolytes. Supplement as necessary. Monitor ins and outs. DVT prophylaxis - Lovenox (on hold). Prognosis: Poor given patient's multiple co-morbidities. Condition: Critical Rest of plan per hospitalist and other consultants. A total of 35 minutes of critical care time was spent reviewing the patient record, examining the patient, making a diagnostic and therapeutic plan, discussing this plan with the medical personnel, following up on diagnostic studies and following the patient for clinical stability excluding any and all procedures. At least 50% of this time was spent in direct, [id number] contact. Thank you, Dr. Castaneda, for allowing me to participate in this patient's care. Further recommendations will depend on the patient's clinical course. Please do not hesitate to contact me if you have any questions or concerns. This medical document was created using an electronic medical record system with [employer] system. Although these documentations are being carefully reviewed, there may still be some phonetic and typographical changes. The errors are purely typographical, due to imperfection on the software program, and do not reflect any compromise in the patient's medical care. Plan discussed with: Other (RN) My Orders Orders - BENITO WILLARD MD Procedure Category Date Status Time Epinephrine Hcl PHA 02/22/25 In Process 09:30 Sodium Chl 0.9% PHA 02/22/25 In Process (So... W/Vasopressin 11:15 Visit Coding Pulmonary Billing Provider: BENITO WILLARD MD Date of Service if different f: Feb 22, 2025 Common Visit Codes: 23146-[id number] INP/OBS CARE(HIGH), [id number] CARE 30-74 MIN BENITO WILLARD MD Feb 22, 2025 23:34
[2025-02-23] VITALS (54 sets, daily range): BP systolic 33–107; BP diastolic 11–59; PULSE 78–104; RESP 12–33; TEMP 97–97.7; O2SAT 29–100
[2025-02-23] MEDS: PHENYLEPHRINE HCL 10 MG/ML VL ONE (02:58)
[2025-02-23] MEDS: PHENYLEPHRINE IV 250 ML IV ONE (02:58)
[2025-02-23] MEDS ORDERED: SODIUM CHL 0.9% 1000 ML BAG XX ONE (07:00)
--- NOTE | 2025-02-23 09:02 | DVHPN2 ---
Progress Note - Dictate Date Seen: Feb 23, 2025 Has the PT tested + for MRSA If YES, has PT been informed?: No Medical Necessity Reason Pt with a Central, PICC or Fol: Yes The following are medically ne: Central Line, Hook Catheter Subjective SHE BECAME UNRESPONSIVE BLOOD SUGAR 166 SHE WAS MILDLY HYPOTENSIVE HAD LEFT SIGHT ARM MOVEMENT LASTED ABOUT 10 MINUTES TOTAL/ NO CLEAR POST ICTAL PERIOD PRESENTATION CONSISTENT WITH METABOLIC SYNDROME/ INFECTION ESPECIALLY WITH HER RECENT ADMISSION FOR SEPSIS/ BACTEREMIA RECENT HX OF HYPOTENSION POSITIVE BLOOD CX STAPH PRODUCTIVE COUGH HYPOXIA SEVERE ANEMIA HX OF BLEEDING DIATHESIS NOW BEING TRANSFUSE PMH; HEMATURIA HX OF ORGANIC HD S/P TAVR HX OF AV STENOSIS HTN HFpEF DIASTOLIC DYSFUNCTION AFIB ON SOTALOL HYPERCOAGULABLE STATE HX OF DVT MORBID OBESITY 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 ANEMIA HYPONATREMIA DECUB STAGE II MULTIPLE ORGANISM PSEUDOMONAS vital signs Vital Sign Date Time Temp Pulse Resp B/P (MAP) Pulse Ox O2 Delivery O2 Flow Rate FiO2 02/23/25 08:32 100 54/36 98 Facial BiPAP Mask 40 02/23/25 08:00 29 6 02/23/25 04:00 97.0 97.0 Total Intake and Output 02/22/25 02/22/25 02/23/25 15:00 23:00 07:00 Intake Total 845.12 ml 688.939 ml 547.691 ml Output Total 40 ml 45 ml Balance 845.12 ml 648.939 ml 502.691 ml medications Current Medications Medications Dose Ordered Sig/Taran Route Start Time Stop Time Status Last Admin Dose Admin Ondansetron HCl 4 mg Q4HP PRN IV 01/31/25 19:30 02/14/25 07:39 4 MG Acetaminophen 650 mg Q6HP PRN PO 01/31/25 19:30 02/14/25 11:29 650 MG Nitroglycerin 0.4 mg Q5MINP PRN SL 01/31/25 19:30 Carbidopa/Levodopa 2 tab HS PO 01/31/25 22:00 02/22/25 21:26 2 TAB Digoxin 125 mcg DAILY IV 02/02/25 10:00 02/21/25 10:33 125 MCG Diagnostic Test (Pha) 1 strip ACHS 02/03/25 17:00 02/23/25 06:18 1 STRIP Insulin Human Regular ACHS SC 02/03/25 17:00 02/20/25 22:55 2 UNITS Dextrose 50 ml UD PRN IV 02/03/25 16:45 02/11/25 06:54 50 ML Levothyroxine Sodium 100 mcg QAM@0600 PO 02/08/25 06:00 02/23/25 05:17 100 MCG Patient Own Medication 160 mg DAILY IV 02/09/25 10:00 UNV Patient Own Medication 1 g Q8H IV 02/08/25 12:30 UNV Clotrimazole 1 applic DAILY TOP 02/12/25 10:00 02/22/25 15:00 1 APPLIC Patient Own Medication 1 DAILY TOP 02/12/25 10:00 02/22/25 15:00 1 Enoxaparin Sodium 40 mg BID SC 02/12/25 22:00 02/21/25 21:57 40 MG Budesonide 0.5 mg BID NEB 02/13/25 10:00 02/23/25 06:02 0.5 MG Betamethasone Dipropion Augmented 1 applic DAILY TOP 02/14/25 13:30 02/22/25 15:00 1 APPLIC Albuterol 2.5 mg Q6HR NEB 02/14/25 18:00 02/22/25 23:38 2.5 MG Fluticasone Propionate 100 mcg DAILY EACHNOSTRI 02/17/25 16:00 Cancel Lactulose 30 ml Q6HPRN PRN PO 02/19/25 14:30 Enteral Nutritional Formula 1,000 ml 60ML/HR GT 02/19/25 16:15 02/19/25 19:50 1,000 ML Sucralfate 2 gm BID@0600,2200 NG 02/19/25 22:00 02/23/25 05:17 2 GM Pantoprazole Sodium 40 mg BID IV 02/21/25 22:00 02/22/25 21:25 40 MG Epinephrine HCl 250 ml @ 7.5 mls/hr Q24H IV 02/22/25 09:30 Albumin Human 100 ml @ 100 mls/hr PRN IV 02/22/25 10:15 02/23/25 11:14 Dopamine HCl/ Dextrose 250 ml @ 21.563 mls/ hr [id number] IV 02/22/25 11:00 Dopamine HCl/ Dextrose 250 ml @ 21.563 mls/ hr [id number] IV 02/22/25 11:00 UNV Vasopressin 20 units/Sodium Chloride 100 ml @ 9 mls/hr Q11H7M IV 02/22/25 11:15 02/23/25 04:30 9 MLS/HR Piperacillin Sod/ Tazobactam Sod 50 ml @ 12.5 mls/hr Q12HR IV 02/22/25 22:00 UNV Doxycycline Hyclate 100 ml @ 50 mls/hr Q12H IV 02/22/25 12:45 02/22/25 21:51 50 MLS/HR Piperacillin Sod/ Tazobactam Sod 50 ml @ 12.5 mls/hr Q8H IV 02/22/25 16:00 02/22/25 23:44 12.5 MLS/HR Phenylephrine HCl 80 mg/Sodium Chloride 250 ml @ 7.5 mls/hr Q24H IV 02/22/25 18:15 02/23/25 02:58 33.75 MLS/HR Norepinephrine Bitartrate 32 mg/ Sodium Chloride 250 ml @ 0.938 mls/ hr Q24H IV 02/22/25 18:15 02/22/25 20:02 14.063 MLS/HR Epoetin Soham-epbx 10,000 unit MWF@2100 SC 02/23/25 21:00 laboratory and microbiology Laboratory Tests 02/22/25 04:54 Test 02/22/25 04:54 Range/Units Serum Glucose 102 74-106 mg/dL Problem List SHE BECAME UNRESPONSIVE BLOOD SUGAR 166 HYPOTENSIVE HAD LEFT SIGHT ARM MOVEMENT LASTED ABOUT 10 MINUTES TOTAL/ NO CLEAR POST ICTAL PERIOD PRESENTATION CONSISTENT WITH METABOLIC SYNDROME/ INFECTION ESPECIALLY WITH HER RECENT ADMISSION FOR SEPSIS/ BACTEREMIA RECENT HX OF HYPOTENSION POSITIVE BLOOD CX STAPH PRODUCTIVE COUGH HYPOXIA SEVERE ANEMIA HX OF BLEEDING DIATHESIS NOW BEING TRANSFUSE PMH; HEMATURIA HX OF ORGANIC HD S/P TAVR HX OF AV STENOSIS HTN HFpEF DIASTOLIC DYSFUNCTION AFIB ON SOTALOL HYPERCOAGULABLE STATE HX OF DVT MORBID OBESITY 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 ANEMIA HYPONATREMIA PSEUDOMONAS INFECTION Assessment/Plan ABX PRESSORS WOUND CARE TRIPLE LUMEN INSERTION DC LASIX LABS START DOPAMINE RENAL PERFUSION STOOL OCCULT BLOOD SECONDARY TO HIGH BUN / CR RATIO WILL RESTART LASIX IN AM 3% saline resume gent and meropenem DC ABOVE ABX TREATMENT FOR YEAST AND VRE ENTEROCOCCUS titrate off levo START FLORINEF DC FLORINEF STARTED ON MIDODRINE CORRECT K THE MOMENT FLORINEF WAS DISCONTINUED BP DROPPED NOW WBC GOING UP AGAIN BECAUSE OF CHANGE IN ABX ABG CT NEGATIVE OF HEAD CXR NEGATIVE TITRATE OFF STEROIDS TRANSFUSE 1 UNIT PRBC STRESS ULCERATION AND SECONDARY TO STEROID USE/ START CARAFATE PT UREMIC START DIALYSIS KAYE PT AFTER DISCUSSING WITH FAMILY DECIDED ON DNR COMFORT MEASURES ONLY ALL DRIPS CONCENTRATED Dietary Evaluation Review Comments: 1. CCHO-60 2 gNa diet w 45g proein restriction 2. Try Devin for wound healing 3. Wt management 4. F/U with nephrology and updated lab values Expected Outcomes/Goals: Less uremic syndrome, controlled DM Plan discussed with: Daughter Critical Care Time(min): 35 CC Plasma Assessment Blood Product Administration S: [id number] MONTRELL RANKIN MD Feb 23, 2025 09:02
--- NOTE | 2025-02-23 09:40 | ECG ---
[facility] Test Date: 2025-02-21 Test Time: 23:29:07 Pat Name: TANESHA FONSECA Department: Room: 0262 A Gender: F [employer] Manager: aime : 1945 Requested By: MONTRELL RANKIN Order Number: [id number] Reading MD: Jamal Overton Measurements Intervals [place] Rate: 64 P: 0 WA: 258 QRS: 102 QRSD: 143 T: -79 QT: 445 QTc: 459 Interpretive Statements Sinus rhythm Ventricular tachycardia, unsustained Prolonged [place] interval Nonspecific intraventricular conduction delay Repol abnrm, severe global ischemia (LM/MVD) Electronically Signed On 02-23-2025 12:20:24 PDT by Jamal Overton Please click the below link to view image of tracing.
--- NOTE | 2025-02-23 09:40 | ECG ---
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
[2025-02-23 09:44] LABS: Mean Corpuscular Hemoglobin 28.6 pg (28.0-32.0)
[2025-02-23 09:47] LABS: Hematocrit 18.0 % (36.0-46.0); Mean Corpuscular Volume 103.2 fL (80.0-100.0)
--- NOTE | 2025-02-23 09:58 | DVHPN2 ---
Progress Note Date Seen: Feb 23, 2025 Resident Creating Document: MAXWELL GODOY RESIDENT Has the PT tested + for MRSA If YES, has PT been informed?: No Medical Necessity Reason Pt with a Central, PICC or Fol: Yes The following are medically ne: Central Line, Hook Catheter Objective vital signs Vital Sign Date Time Temp Pulse Resp B/P (MAP) Pulse Ox O2 Delivery O2 Flow Rate FiO2 02/23/25 08:32 100 54/36 98 Facial BiPAP Mask 40 02/23/25 08:00 29 6 02/23/25 04:00 97.0 97.0 Total Intake and Output 02/22/25 02/22/25 02/23/25 15:00 23:00 07:00 Intake Total 845.12 ml 688.939 ml 547.691 ml Output Total 40 ml 45 ml Balance 845.12 ml 648.939 ml 502.691 ml medications Current Medications Medications Dose Ordered Sig/Taran Route Start Time Stop Time Status Last Admin Dose Admin Ondansetron HCl 4 mg Q4HP PRN IV 01/31/25 19:30 02/14/25 07:39 4 MG Acetaminophen 650 mg Q6HP PRN PO 01/31/25 19:30 02/14/25 11:29 650 MG Nitroglycerin 0.4 mg Q5MINP PRN SL 01/31/25 19:30 Carbidopa/Levodopa 2 tab HS PO 01/31/25 22:00 02/22/25 21:26 2 TAB Digoxin 125 mcg DAILY IV 02/02/25 10:00 02/21/25 10:33 125 MCG Diagnostic Test (Pha) 1 strip ACHS 02/03/25 17:00 02/23/25 06:18 1 STRIP Insulin Human Regular ACHS SC 02/03/25 17:00 02/20/25 22:55 2 UNITS Dextrose 50 ml UD PRN IV 02/03/25 16:45 02/11/25 06:54 50 ML Levothyroxine Sodium 100 mcg QAM@0600 PO 02/08/25 06:00 02/23/25 05:17 100 MCG Patient Own Medication 160 mg DAILY IV 02/09/25 10:00 UNV Patient Own Medication 1 g Q8H IV 02/08/25 12:30 UNV Clotrimazole 1 applic DAILY TOP 02/12/25 10:00 10/2/25 15:00 1 APPLIC Patient Own Medication 1 DAILY TOP 02/12/25 10:00 02/22/25 15:00 1 Enoxaparin Sodium 40 mg BID SC 02/12/25 22:00 02/21/25 21:57 40 MG Budesonide 0.5 mg BID NEB 02/13/25 10:00 02/23/25 06:02 0.5 MG Betamethasone Dipropion Augmented 1 applic DAILY TOP 02/14/25 13:30 02/22/25 15:00 1 APPLIC Albuterol 2.5 mg Q6HR NEB 02/14/25 18:00 02/22/25 23:38 2.5 MG Fluticasone Propionate 100 mcg DAILY EACHNOSTRI 02/17/25 16:00 Cancel Lactulose 30 ml Q6HPRN PRN PO 02/19/25 14:30 Enteral Nutritional Formula 1,000 ml 60ML/HR GT 02/19/25 16:15 02/19/25 19:50 1,000 ML Sucralfate 2 gm BID@0600,2200 NG 02/19/25 22:00 02/23/25 05:17 2 GM Pantoprazole Sodium 40 mg BID IV 02/21/25 22:00 02/22/25 21:25 40 MG Epinephrine HCl 250 ml @ 7.5 mls/hr Q24H IV 02/22/25 09:30 Albumin Human 100 ml @ 100 mls/hr PRN IV 02/22/25 10:15 02/23/25 11:14 Dopamine HCl/ Dextrose 250 ml @ 21.563 mls/ hr [id number] IV 02/22/25 11:00 Dopamine HCl/ Dextrose 250 ml @ 21.563 mls/ hr [id number] IV 02/22/25 11:00 UNV Vasopressin 20 units/Sodium Chloride 100 ml @ 9 mls/hr Q11H7M IV 02/22/25 11:15 02/23/25 04:30 9 MLS/HR Piperacillin Sod/ Tazobactam Sod 50 ml @ 12.5 mls/hr Q12HR IV 02/22/25 22:00 UNV Doxycycline Hyclate 100 ml @ 50 mls/hr Q12H IV 02/22/25 12:45 02/22/25 21:51 50 MLS/HR Piperacillin Sod/ Tazobactam Sod 50 ml @ 12.5 mls/hr Q8H IV 02/22/25 16:00 02/22/25 23:44 12.5 MLS/HR Phenylephrine HCl 80 mg/Sodium Chloride 250 ml @ 7.5 mls/hr Q24H IV 02/22/25 18:15 02/23/25 02:58 33.75 MLS/HR Norepinephrine Bitartrate 32 mg/ Sodium Chloride 250 ml @ 0.938 mls/ hr Q24H IV 02/22/25 18:15 02/22/25 20:02 14.063 MLS/HR Epoetin Soham-epbx 10,000 unit MWF@2100 SC 02/23/25 21:00 laboratory and microbiology Test 02/23/25 09:25 Range/Units Serum Glucose Pending Microbiology Date/Time Source Procedure Growth Status 02/08/25 22:15 Urine - Hook Port Urine Culture - Final Enterococcus faecalis Complete 02/08/25 20:11 Blood Blood Culture - Final NO GROWTH AFTER 5 DAYS OF INCUBATION. Complete 02/03/25 00:50 Nose MRSA Screen - Final Complete Problem List/Assessment/Plan Problem List/Assessment/Plan Possible upper GI bleed Stress-induced ulcer and/or gastritis History of horseshoe kidney CHANTAL/VMN on CKD? Sepsis due to UTI with Enterococcus faecalis and VRE Septic shock Bed-bound Acute on chronic diastolic heart failure Plan: Ordered H&H, PT INR Stool occult blood negative, pending repeat stool occult blood Continue current supportive care IV Protonix 40 mg b.i.d. Carafate 1 g b.i.d. Continue antibiotics GI team will remain on standby for endoscopy and/or colonoscopy if there is an urgent indication. Thank you so much for the opportunity to consult on your patient. GI team will follow the patient. In case of any questions or concerns please feel free to reach out. Plan discussed with Dr. Lopez My Orders My Orders Orders - MAXWELL GODOY RESIDENT Procedure Category Date Status Time Stool Occult Blood LAB 02/22/25 Logged 11:24 Dietary Evaluation Review Comments: 1. CCHO-60 2 gNa diet w 45g proein restriction 2. Try Devin for wound healing 3. Wt management 4. F/U with nephrology and updated lab values Expected Outcomes/Goals: Less uremic syndrome, controlled DM CC Plasma Assessment Blood Product Administration S: 1015 MAXWELL GODOY RESIDENT Feb 23, 2025 09:58
[2025-02-23 10:05] LABS: Sodium 142 mmol/L (136-145)
[2025-02-23 10:06] LABS: Anion Gap 23.00001 (5-15)
[2025-02-23 10:11] LABS: BUN/Creatinine Ratio 30.0 (10.0-20.0)
[2025-02-23 10:13] LABS: Blood Urea Nitrogen 78 mg/dL (9-23); Calcium 8.2 mg/dL (8.7-10.4); Chloride 109 mmol/L (98-107); Potassium 5.5 mmol/L (3.5-5.1)
[2025-02-23 10:17] LABS: Glucose 29 mg/dL (74-106)
[2025-02-23 10:18] LABS: Carbon Dioxide < 10 mmol/L (20-31)
[2025-02-23 10:22] LABS: Hemoglobin 5.0 g/dL (12.2-16.2)
--- NOTE | 2025-02-23 11:08 | PRN ---
Misceleneous Note Note Note Patient pronounced at 10:46am, 02/23/25. No heart or breath sounds on auscultation. Asystole confirmed on monitor. Time of communicated to family; rhythm strip shared. MAXWELL GODOY RESIDENT Feb 23, 2025 11:08
[2025-02-23 11:38] LABS: Anisocytosis Slight; Nucleated Red Blood Cells % 12.0 %; Total Cells Counted 100.0 (100)
[2025-02-23 11:39] LABS: Hepatitis B Surface Antigen Negative (Negative)
[2025-02-23 12:48] LABS: Hepatitis C Antibody Negative (Negative)
--- NOTE | 2025-02-23 14:06 | DVHPN2 ---
Progress Note - Dictate Date Seen: Feb 23, 2025 Has the PT tested + for MRSA If YES, has PT been informed?: No Medical Necessity Reason Pt with a Central, PICC or Fol: Yes The following are medically ne: Central Line, Hook Catheter vital signs Vital Sign Date Time Temp Pulse Resp B/P (MAP) Pulse Ox O2 Delivery O2 Flow Rate FiO2 02/23/25 10:45 12 02/23/25 10:30 78 02/23/25 10:15 81 02/23/25 10:08 Facial BiPAP Mask 40 02/23/25 10:00 6 02/23/25 08:00 97.0 97.0 Total Intake and Output 02/22/25 02/22/25 02/23/25 15:00 23:00 07:00 Intake Total 845.12 ml 688.939 ml 547.691 ml Output Total 40 ml 45 ml Balance 845.12 ml 648.939 ml 502.691 ml medications Current Medications Medications Dose Ordered Sig/Taran Route Start Time Stop Time Status Last Admin Dose Admin Ondansetron HCl 4 mg Q4HP PRN IV 01/31/25 19:30 02/14/25 07:39 4 MG Acetaminophen 650 mg Q6HP PRN PO 01/31/25 19:30 02/14/25 11:29 650 MG Nitroglycerin 0.4 mg Q5MINP PRN SL 01/31/25 19:30 Carbidopa/Levodopa 2 tab HS PO 01/31/25 22:00 02/22/25 21:26 2 TAB Digoxin 125 mcg DAILY IV 02/02/25 10:00 02/21/25 10:33 125 MCG Diagnostic Test (Pha) 1 strip ACHS 02/03/25 17:00 02/23/25 06:18 1 STRIP Insulin Human Regular ACHS SC 02/03/25 17:00 02/20/25 22:55 2 UNITS Dextrose 50 ml UD PRN IV 02/03/25 16:45 02/23/25 10:33 50 ML Levothyroxine Sodium 100 mcg QAM@0600 PO 02/08/25 06:00 02/23/25 05:17 100 MCG Patient Own Medication 160 mg DAILY IV 02/09/25 10:00 UNV Patient Own Medication 1 g Q8H IV 02/08/25 12:30 UNV Patient Own Medication 1 DAILY TOP 02/12/25 10:00 02/22/25 15:00 1 Enoxaparin Sodium 40 mg BID SC 02/12/25 22:00 02/21/25 21:57 40 MG Budesonide 0.5 mg BID NEB 02/13/25 10:00 02/23/25 06:02 0.5 MG Betamethasone Dipropion Augmented 1 applic DAILY TOP 02/14/25 13:30 02/22/25 15:00 1 APPLIC Albuterol 2.5 mg Q6HR NEB 02/14/25 18:00 02/23/25 06:00 2.5 MG Fluticasone Propionate 100 mcg DAILY EACHNOSTRI 02/17/25 16:00 Cancel Lactulose 30 ml Q6HPRN PRN PO 02/19/25 14:30 Enteral Nutritional Formula 1,000 ml 60ML/HR GT 02/19/25 16:15 02/19/25 19:50 1,000 ML Sucralfate 2 gm BID@0600,2200 NG 02/19/25 22:00 02/23/25 05:17 2 GM Pantoprazole Sodium 40 mg BID IV 02/21/25 22:00 02/23/25 10:05 40 MG Epinephrine HCl 250 ml @ 7.5 mls/hr Q24H IV 02/22/25 09:30 Dopamine HCl/ Dextrose 250 ml @ 21.563 mls/ hr [id number] IV 02/22/25 11:00 Dopamine HCl/ Dextrose 250 ml @ 21.563 mls/ hr [id number] IV 02/22/25 11:00 UNV Vasopressin 20 units/Sodium Chloride 100 ml @ 9 mls/hr Q11H7M IV 02/22/25 11:15 02/23/25 04:30 9 MLS/HR Piperacillin Sod/ Tazobactam Sod 50 ml @ 12.5 mls/hr Q12HR IV 02/22/25 22:00 UNV Doxycycline Hyclate 100 ml @ 50 mls/hr Q12H IV 02/22/25 12:45 02/22/25 21:51 50 MLS/HR Piperacillin Sod/ Tazobactam Sod 50 ml @ 12.5 mls/hr Q8H IV 02/22/25 16:00 02/23/25 10:04 12.5 MLS/HR Phenylephrine HCl 80 mg/Sodium Chloride 250 ml @ 7.5 mls/hr Q24H IV 02/22/25 18:15 02/23/25 10:05 33.75 MLS/HR Norepinephrine Bitartrate 32 mg/ Sodium Chloride 250 ml @ 0.938 mls/ hr Q24H IV 02/22/25 18:15 02/23/25 10:04 14.063 MLS/HR Epoetin Soham-epbx 10,000 unit MWF@2100 MT 02/23/25 21:00 laboratory and microbiology Laboratory Tests 02/23/25 09:25 Test 02/23/25 09:25 Range/Units Serum Glucose 29 *L 74-106 mg/dL Assessment/Plan Acute metabolic encephalopathy Septic shock due to UTI Morbid obesity, BMI 42.3 Snoring, likely ARPAN Urinary tract infection Congestive heart failure (HFpEF) Hyponatremia Pleural effusions Atelectasis Events: pt continued to decline and at 10:46 am may she rest in peace! family at bedside Dietary Evaluation Review Comments: 1. CCHO-60 2 gNa diet w 45g proein restriction 2. Try Devin for wound healing 3. Wt management 4. F/U with nephrology and updated lab values Expected Outcomes/Goals: Less uremic syndrome, controlled DM Plan discussed with: Other (rn) CC Plasma Assessment Blood Product Administration S: 1015 ELIESER CONKLIN MD Feb 23, 2025 14:06
[2025-02-23] MEDS ORDERED: EPOETIN ALFA-EPBX 10,000 UNIT/1ML VIAL SC SCH (21:00)
--- NOTE | 2025-02-28 13:51 | DVHPN2 ---
Visit Coding Pulmonary Billing Provider: BENITO WILLARD MD Date of Service if different f: Feb 14, 2025 Common Visit Codes: PROCEDURE ONLY Procedure Codes: [id number] NON-TUNNEL [place] ([place] [address]) BENITO WILLARD MD Feb 28, 2025 13:51
== END 2025-02-23 01:46 | DRG 871 ==
LOC: ER 10:30 → EDBD 10:30 → OVERFLOW 19:16 → ICU CENTRL 02-02 23:42 → EAST 02-13 23:42 → DOU 02-13 23:45 → ICU CENTRL 02-20 08:25
PROVIDERS: ADMIT Internal Medicine Cardiovascular Disease; ATTEND Internal Medicine Cardiovascular Disease
PROC: 02HV33Z Insertion of Infusion Device into Superior Vena Cava, Percutaneous Approach (ICD-10-PCS; principal; 2025-02-03)
PROC: 06HY33Z Insertion of Infusion Device into Lower Vein, Percutaneous Approach (ICD-10-PCS; 2025-02-14)
PROC: B54CZZA Ultrasonography of Left Lower Extremity Veins, Guidance (ICD-10-PCS; 2025-02-14)
PROC: 05HY33Z Insertion of Infusion Device into Upper Vein, Percutaneous Approach (ICD-10-PCS; 2025-02-14)
PROC: B54MZZA Ultrasonography of Right Upper Extremity Veins, Guidance (ICD-10-PCS; 2025-02-14)
PROC: 30233N1 Transfusion of Nonautologous Red Blood Cells into Peripheral Vein, Percutaneous Approach (ICD-10-PCS; 2025-02-19)
PROC: 06HY33Z Insertion of Infusion Device into Lower Vein, Percutaneous Approach (ICD-10-PCS; 2025-02-21)
PROC: B54BZZA Ultrasonography of Right Lower Extremity Veins, Guidance (ICD-10-PCS; 2025-02-21)
PROC: 5A09357 Assistance with Respiratory Ventilation, Less than 24 Consecutive Hours, Continuous Positive Airway Pressure (ICD-10-PCS; 2025-02-22)
PROC: 5A1D70Z Performance of Urinary Filtration, Intermittent, Less than 6 Hours Per Day (ICD-10-PCS; 2025-02-22)
PROC: 5A09357 Assistance with Respiratory Ventilation, Less than 24 Consecutive Hours, Continuous Positive Airway Pressure (ICD-10-PCS; 2025-02-23)
DX: A41.81 Sepsis due to Enterococcus (principal); G93.41 Metabolic encephalopathy; R65.21 Severe sepsis with septic shock; N17.0 Acute kidney failure with tubular necrosis; I50.33 Acute on chronic diastolic (congestive) heart failure; E87.1 Hypo-osmolality and hyponatremia; N13.6 Pyonephrosis; I13.0 Hypertensive heart and chronic kidney disease with heart failure and stage 1 through stage 4 chronic kidney disease, or unspecified chronic kidney disease; E44.0 Moderate protein-calorie malnutrition; D68.69 Other thrombophilia; Z68.41 Body mass index [BMI] 40.0-44.9, adult; J98.11 Atelectasis; J90 Pleural effusion, not elsewhere classified; E87.3 Alkalosis; K62.5 Hemorrhage of anus and rectum; E66.01 Morbid (severe) obesity due to excess calories; Q63.1 Lobulated, fused and horseshoe kidney; I48.91 Unspecified atrial fibrillation; E83.42 Hypomagnesemia; E87.6 Hypokalemia; B96.5 Pseudomonas (aeruginosa) (mallei) (pseudomallei) as the cause of diseases classified elsewhere; Z74.01 Bed confinement status; D63.1 Anemia in chronic kidney disease; D50.9 Iron deficiency anemia, unspecified; E03.9 Hypothyroidism, unspecified; E11.22 Type 2 diabetes mellitus with diabetic chronic kidney disease; E86.1 Hypovolemia; G20.C Parkinsonism, unspecified; G25.81 Restless legs syndrome; L40.50 Arthropathic psoriasis, unspecified; L98.419 Non-pressure chronic ulcer of buttock with unspecified severity; L98.429 Non-pressure chronic ulcer of back with unspecified severity; N18.9 Chronic kidney disease, unspecified; L30.4 Erythema intertrigo; Z66 Do not resuscitate; F02.80 Dementia in other diseases classified elsewhere, unspecified severity, without behavioral disturbance, psychotic disturbance, mood disturbance, and anxiety; D69.6 Thrombocytopenia, unspecified; G47.33 Obstructive sleep apnea (adult) (pediatric); Z88.0 Allergy status to penicillin; Z88.2 Allergy status to sulfonamides; Z88.5 Allergy status to narcotic agent; Z88.1 Allergy status to other antibiotic agents; Z79.899 Other long term (current) drug therapy; Z82.5 Family history of asthma and other chronic lower respiratory diseases; Z86.718 Personal history of other venous thrombosis and embolism; Z82.49 Family history of ischemic heart disease and other diseases of the circulatory system; Z95.2 Presence of prosthetic heart valve; Z79.01 Long term (current) use of anticoagulants; Z87.442 Personal history of urinary calculi
CPT/HCPCS: 36415; 36556; 36600; 70450; 71045; 74178; 76775; 80048; 80053; 80074; 80162; 80170; 81001; 82270; 82271; 82607; 82728; 82805; 82962; 83540; 83550; 83605; 83735; 83880; 84100; 84132; 84295; 84425; 84484; 85007; 85014; 85018; 85025; 85027; 85610; 85730; 86850; 86900; 86901; 86920; 87040; 87081; 87086; 87088; 87186; 90935; 93005; 93306; 94640; 94660; 96365; 97110; 97163; G0378; J0461; J1580; J1642; J1756; J1815; J1956; J2405; J2470; J2543; J3480; J7060; P9047